=== PATIENT | female | born 1950 | race Caucasian/White ===

== ENCOUNTER → 2016-11-18 | Outpatient (CLI) | payer MEDICARE, OTHER ==
[2016-06-10 12:37] VITALS: BP 115/67
[~2016-11-18] MED LIST: CELE100C PO; CYAN10002; ENOX40DI SQ; FERR325C PO; GABA-585 PO; LISI1TAB3 PO; LORA10TA68 PO; OMEP20TA63 PO; OXYC-323 PO; RANI150T6 PO; TRAZ50TA15 PO
--- NOTE | 2016-11-18 14:38 | RAD ---
EXAM: Bilateral lower extremity venous Doppler. HISTORY: Bilateral lower extremity pain/swelling. COMPARISON: None. FINDINGS: Grayscale and Doppler analysis of the both lower extremity deep venous systems was performed with graded compression and augmentation. The common femoral, greater saphenous, superficial femoral, popliteal and calf veins were assessed. There is no evidence of deep venous thrombosis. IMPRESSION: 1. No evidence of deep venous thrombosis.
== END | disposition home or self-care (01) ==
LOC: US 12:56
PROVIDERS: ATTEND Internal Medicine Hematology & Oncology
DX: C22.1 Intrahepatic bile duct carcinoma (principal); M79.662 Pain in left lower leg; M79.661 Pain in right lower leg; Z86.718 Personal history of other venous thrombosis and embolism
CPT/HCPCS: 93970

== ENCOUNTER 2016-11-22 16:48 | Inpatient (IN) | payer MEDICARE, OTHER ==
[~2016-11-22] VITALS: Ht 160 cm; Wt 83.9 kg
[2016-11-22] MEDS ORDERED: IV NORMAL SALINE 1000ML BAG 1,000 ML IV SCH (18:16)
[2016-11-22 18:49] LABS: BASO % 0 % (0-3); EOS % 0 % (0-3); HEMATOCRIT 23.8 % (36.0-47.0); HEMOGLOBIN 7.7 g/dL (12.0-15.5); LYMPH # 0.2 x10^3/uL (1.0-4.8); LYMPH % 5 % (24-48); MEAN CORPUSCULAR HEMOGLOBIN 31 pg (25-35); MEAN CORPUSCULAR HGB CONC 32 g/dL (31-37); MEAN CORPUSCULAR VOLUME 97 fL (79-100); MONO % 1 % (0-9); NEUT % 95 % (31-73); PLATELET COUNT 71 x10^3/uL (140-400); RED BLOOD COUNT 2.45 x10^6/uL (3.50-5.40); RED CELL DISTRIBUTION WIDTH 22.7 % (11.5-14.5); WHITE BLOOD COUNT 4.5 x10^3/uL (4.0-11.0)
[2016-11-22] MEDS: FENTANYL PF 100 MCG/2 ML VIAL. IV PRN (18:57)
[2016-11-22] MEDS ORDERED: VANCOMYCIN 2 GM in IV NORMAL SALINE 500ML BAG 500 ML IV ONE (19:00)
[2016-11-22 19:01] LABS: CALCIUM 8.3 mg/dL (8.5-10.1); CREATININE 0.9 mg/dL (0.6-1.0); GFR 62.5; POTASSIUM 4.1 mmol/L (3.5-5.1)
[2016-11-22] MEDS: VANCOMYCIN PER PHARMACY MC PRN (19:09)
[2016-11-22 19:28] LABS: PLT ESTIMATE DECREASED (ADEQUATE)
[2016-11-22 19:29] LABS: HYPOCHROMIA SLIGHT; OVALOCYTES OCC; TEAR DROP CELLS OCC
[2016-11-22 19:46] LABS: BILIRUBIN,URINE SMALL (NEG); GLUCOSE,URINE NEGATIVE (NEG); NITRITE,URINE NEGATIVE (NEG); PH,URINE 5.5; PROTEIN,URINE NEGATIVE (NEG-TRACE); UROBILINOGEN,URINE 0.2 mg/dL (0.2 mg/dL)
[2016-11-22 19:59] LABS: BACTERIA,URINE 0 /HPF (0-FEW); RBC,URINE 0 /HPF (0-2); SQUAMOUS EPITHELIAL CELL,UR OCC /LPF
[2016-11-22] MEDS ORDERED: FENTANYL PF 100 MCG/2 ML VIAL. IV PRN (20:00)
[2016-11-22] MEDS ORDERED: ONDANSETRON PF 4 MG/2 ML VIAL. IV PRN (20:00)
--- NOTE | 2016-11-22 20:25 | ED.ADGEN ---
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 Patient states she was seen by her oncologist, Dr. Trevino, on . At that time she was noted to have redness and swelling of the extremity, with history of DVT in that extremity. An ultrasound was ordered, which did not reveal any evidence of DVT, and patient was placed on Keflex for treatment of cellulitis. Patient states he's been taking antibiotics as directed. Incision expressing chills, no fever, mild nausea, no vomiting, no weakness, numbness or tingling, denies any injuries. She states that the redness initially was located only in the ankle region, but is now extended up to just below the knee, with warmth, and swelling. She was seen by her primary care provider this afternoon, was sent to the emergency department for additional evaluation and treatment as a failure of outpatient management of cellulitis. Review of Systems Review of Systems Constitutional: Denies fever or chills. [] Eyes: Denies change in visual acuity. [] HENT: Denies nasal congestion or sore throat. [] Respiratory: Denies cough or shortness of breath. [] Cardiovascular: Denies chest pain or edema. [] GI: Denies abdominal pain, nausea, vomiting, bloody stools or diarrhea. [] : Denies dysuria. [] Musculoskeletal: Denies back pain, redness and swelling of the right lower extremity. Integument: Denies rash. [] Neurologic: Denies headache, focal weakness or sensory changes. [] Endocrine: Denies polyuria or polydipsia. [] Lymphatic: Denies swollen glands. [] Psychiatric: Denies depression or anxiety. [] Current Medications Current Medications Current Medications Medications (Trade) Dose Ordered Sig/Shahab Start Time Stop Time Status Last Admin Dose Admin Sodium Chloride (Iv Sodium Chloride 0.9% 1000ml Bag) 1,000 ml @ 100 mls/hr Q10H 11/22/16 18:16 11/23/16 04:15 11/22/16 18:40 100 MLS/HR Allergies Allergies Allergies Coded Allergies Type Severity Reaction Last Updated Verified No Known Drug Allergies 06/10/16 No Physical Exam Physical Exam Constitutional: Well developed, well nourished, no acute distress, non-toxic appearance. [] HENT: Normocephalic, atraumatic, bilateral external ears normal, oropharynx moist, no oral exudates, nose normal. [] Eyes: PERRLA, EOMI, conjunctiva normal, no discharge. [] Neck: Normal range of motion, no tenderness, supple, no stridor. [] Cardiovascular:Heart rate regular rhythm, no murmur S1, S2, rubs or gallops. [] Lungs & Thorax: Bilateral breath sounds clear to auscultation, no wheezing, rhonchi, rales. No chest or crepitus or tenderness. [] Abdomen: Bowel sounds normal, soft, obese, no rebound, rigidity, no guarding, no tenderness, no masses, no pulsatile masses. [] Skin: Warm, dry, no erythema, no rash. [] Back: No tenderness, no CVA tenderness. [] Extremities: Patient with swelling and erythema noted from the dorsum of the right foot extending up to just below the knee on the right, warm and tender to touch, no fluctuance, no discrete abscess formation, no evidence of injury. Left lower extremity noted to have very mild erythema located on the pretibial region, but no significant edema, and no evidence of injury or abscess formation. Neurologic: Alert and oriented X 3, normal motor function, normal sensory function, no focal deficits noted. [] Psychologic: Affect normal, judgement normal, mood normal. [] Current Patient Data Vital Signs Vital Signs Date Time Temp Pulse Resp B/P Pulse Ox O2 Delivery O2 Flow Rate FiO2 11/22/16 17:41 98.7 78 22 123/59 95 98.7 EKG EKG ECG: Rhythm strip: Heart rate 82 bpm, sinus rhythm, no ectopy. As interpreted by me. [] Radiology/Procedures Radiology/Procedures Right Ankle x-ray: Three-view: No fracture or subluxation, evidence of arthritis but no acute findings identified. As interpreted by me. Right tib-fib x-ray: Two-view: No fracture subluxation, evidence of soft tissue swelling, with degenerative joint disease, but no evidence of acute bony abnormalities or air tracking. As inserted by me. Impressions: [facility] [address] [place] [address] IMAGING REPORT Signed PATIENT: JAMAAL HENDRICKSON ACCOUNT: [id number] : 1950 LOCATION: US AGE: 66 SEX: F EXAM STATUS: REG CLI ORD. PHYSICIAN: LETICIA TREVINO MD REASON: USVEINB/PAIN SWELLING HX OF DVT PROCEDURE: VENOUS LOWER EXT BILATERAL EXAM: Bilateral lower extremity venous Doppler. HISTORY: Bilateral lower extremity pain/swelling. COMPARISON: None. FINDINGS: Grayscale and Doppler analysis of the both lower extremity deep venous systems was performed with graded compression and augmentation. The common femoral, greater saphenous, superficial femoral, popliteal and calf veins were assessed. There is no evidence of deep venous thrombosis. IMPRESSION: 1. No evidence of deep venous thrombosis. DICTATED and SIGNED BY: CLIVE MEJIAS MD DATE: 11/18/16 [id number] CC: FAROOQ SANCHEZ DO; LETICIA TREVINO MD ~ Course & Med Decision Making Course & Med Decision Making Pertinent Labs and Imaging studies reviewed. (See chart for details) Patient well-appearing aside from erythema bilateral lower extremities stated, with worsening right versus left. Examination is consistent with failure of outpatient medical therapy. Did discuss this with patient, she has no fever at this time, laboratory studies not reveal any evidence of systemic infection, but based on the progression of the cellulitis, she is agreeable for initial hospital for treatment with IV antibiotics and supportive measures. She is cancer pain at a 10 out of 10 at this time, it is significantly improved her receiving IV pain medication in the ED. Findings as above discussed with Dr. Escobar of internal medicine, patient accepted to his service as a full admission to the medical telemetry floor with plan for treatment as above. Bridge orders entered per discussion. Dragon Disclaimer Dragon Disclaimer This electronic medical record was generated, in whole or in part, using a voice recognition dictation system. Departure Impression: Primary Impression: Cellulitis Disposition: ADMITTED INPATIENT Condition: IMPROVED AMANDA MINOR DO Nov 22, 2016 20:25
[2016-11-22 20:30] VITALS: BP 118/58
[2016-11-22] MEDS ORDERED: LISI-377 PO (21:42)
[2016-11-22] MEDS ORDERED: SULF1TAB23 PO (21:47)
[2016-11-22] MEDS ORDERED: GABA-586 PO (21:47)
[2016-11-22] MEDS ORDERED: LORA10TA68 PO (21:47)
[2016-11-22] MEDS: ACETAMINOPHEN 325 MG TABLET. PO PRN (21:57)
[2016-11-22 23:00] VITALS: BP 114/48
--- NOTE | 2016-11-22 23:35 | ACF ---
Admission Forms Criteria CELLULITIS Clinical Indications for Admission to Inpatient Care (Place 'X' for any and all applicable criteria): Admission is indicated for ANY ONE of the following(1)(2)(3)(4)(5): [X]I. Limb-threatening infection [ ]II. High-risk comorbid condition as indicated by ANY ONE of the following: [ ]a) Uncontrolled diabetes (eg, HbA1c greater than 10% (0.1)) [ ]b) Cirrhosis [ ]c) Neutropenia [ ]d) Asplenia [ ]e) Immunosuppression [ ]f) Symptomatic heart failure [ ]III. Failure of outpatient therapy as indicated by ALL of the following: [ ]a) Progression or no improvement after adequate trial (minimum of 48 hours, with longer period for stable lower extremity infection) [ ]b) Adequate antibiotic regimen as indicated by use of ANY ONE of the following: [ ]i) First-generation cephalosporin (e.g., cephalexin) [ ]ii) Antistaphylococcal penicillin (e.g., dicloxacillin) [ ]iii) Penicillin-allergic patient regimen (clindamycin, extended-spectrum fluoroquinolone, or doxycycline) [ ]iv) Resistant organism (eg, methicillin-resistant Staphylococcus aureus) regimen (6) [ ]c) Outpatient intravenous therapy regimen is not appropriate due to ANY ONE of the following. (7)(8)(9)(10): [ ]i) It was tried and was not successful (eg, progression of infection). [ ]ii) It is not available or cannot be arranged in a clinically appropriate time frame (e.g., the next day). [ ]iii) Clinical presentation (eg, acuity of infection, rapidity of progression, confirmed or suspected bacteremia) is judged to require ALL of the following: [ ]1) Immediate initiation of intravenous therapy ( eg, cannot wait for next day) [ ]2) Intensity of patient monitoring and observation (eg, vital sign measurement, checks for infection progression) that cannot be provided at other than inpatient level of care [ ]IV. Mental status changes [ ]V. Bacteremia [ ]. Hemodynamic instability [ ]VII. Suspected necrotizing soft tissue infection (e.g., gas in tissue)(11)( 12) [ ]VIII. Orbital infection (13)(14) [ ]IX. Associated surgical procedure (e.g., abscess drainage, debridement) not amenable to outpatient, emergency department, or observation care [ ]X. Cutaneous gangrene [ ]XI. High fever (temperature greater than 39.5 degrees C (103.1 degrees F) (oral)) not responsive to outpatient, emergency department, or observation care therapy [ ]XIII. Inpatient admission required rather than observation care (Also use Cellulitis: Observation Care as appropriate) because of ANY ONE of the following : [ ]a) Periorbital or perineal infection that is severe or worsening [ ]b) Severe pain requiring acute inpatient management [ ]c) IV fluid to replace significant ongoing (e.g., for over 24 hours) losses (greater than 3L/m2 per day) [ ]d) Compartment syndrome monitoring (17) [ ]e) Strict or protective (eg, laminar flow) isolation [ ]f) Urgent debridement or skin grafting [ ]g) Bone or joint debridement [ ]h) Immediate inpatient surgery [ ]i) Other condition, treatment or monitoring requiring inpatient admission Extended stay beyond goal length of stay may be needed for (1)(18): [ ]a) Necrotizing soft tissue infection or fasciitis [ ]b) Gram-negative infection [ ]c) Methicillin-resistant Staphylococcal aureus (MRSA) infection [ ]d) Peripheral venous insufficiency with cellulitis [ ]e) Extensive edema [ ]f) Sepsis or continued Hemodynamic instability [ ]g) Continued high fever or mental status change [ ]h) Bacteremia [ ]i) Active serious comorbid conditions ( eg, heart failure, renal insufficiency) The original [employer] content created by [employer] has been revised. The portions of the content which have been revised are identified through the use of italic text or in bold, and [facility] [employer] [facility] has neither reviewed nor approved the modified material. All other unmodified content is copyright [employer] Please see references footnoted in the original [employer] edition 2016 Admission Criteria Met?: Yes MELCHOR FROST Nov 22, 2016 23:35
[2016-11-23] VITALS (8 sets, daily range): BP systolic 100–135; BP diastolic 45–69
[2016-11-23] MEDS: GUAIFENESIN DM 200MG/20MG 10 ML SYRUP. PO PRN ×3 (03:48→18:31)
[2016-11-23 04:49] LABS: CREATININE 0.8 mg/dL (0.6-1.0); GFR 71.5; POTASSIUM 3.5 mmol/L (3.5-5.1)
[2016-11-23 04:52] LABS: BASO % 0 % (0-3); EOS % 0 % (0-3); LYMPH # 0.2 x10^3/uL (1.0-4.8); LYMPH % 7 % (24-48); MEAN CORPUSCULAR HEMOGLOBIN 32 pg (25-35); MEAN CORPUSCULAR HGB CONC 32 g/dL (31-37); MEAN CORPUSCULAR VOLUME 98 fL (79-100); MONO % 0 % (0-9); NEUT % 93 % (31-73); PLATELET COUNT 60 x10^3/uL (140-400); RED BLOOD COUNT 2.08 x10^6/uL (3.50-5.40); RED CELL DISTRIBUTION WIDTH 22.5 % (11.5-14.5)
[2016-11-23 04:54] LABS: HEMATOCRIT 20.3 % (36.0-47.0); HEMOGLOBIN 6.6 g/dL (12.0-15.5)
--- NOTE | 2016-11-23 08:12 | RAD ---
Indication: Right lower leg swelling, redness and pain. Technique: 2 views of the right tibia and fibula are submitted for review. No comparison is available. Findings: There is soft tissue swelling diffusely. There is no fracture or osseous lesion. There is no gross bone destruction. There are degenerative changes in the knee, advanced. Impression: Soft tissue swelling.
--- NOTE | 2016-11-23 08:14 | RAD ---
Indication: Right lower leg swelling, redness and pain. Warm to touch. Cellulitis. Technique: 3 views of the right ankle are submitted for review. No comparison is available. Findings: There is soft tissue swelling. There is no fracture or dislocation. There are mild degenerative changes at the tibiotalar joint. There are mild degenerative changes between the tarsals. There is a small spur at the insertion of the Achilles tendon and there is a plantar calcaneal spur. There is no gross bone destruction. Impression: Soft tissue swelling. Degenerative changes.
[2016-11-23] MEDS: FENTANYL PF 100 MCG/2 ML VIAL. IV PRN (08:42)
[2016-11-23] MEDS: ACETAMINOPHEN 325 MG TABLET. PO PRN (09:43)
[2016-11-23] MEDS ORDERED: OXYCODONE/APAP 5/325 TABLET. PO PRN (11:30)
--- NOTE | 2016-11-23 11:36 | HP ---
ADMIT DATE: 11/23/2016 CHIEF COMPLAINT: Right lower extremity pain and swelling. HISTORY OF PRESENT ILLNESS: The patient is a pleasant middle-aged female who has a known previous history of breast cancer 18 years ago, she thinks that has cured. She also has cholangiocarcinoma that has currently been treated with chemotherapy and actually started in her liver and she has had part of her liver resected at . She now presents with right lower extremity swelling and pain and erythema. We thought she might have a clot, but the lower extremity Doppler is negative for DVT. She does have cellulitis. She also has pancytopenia, I have discussed the case with the ER physician. We are going to admit the patient, give her IV antibiotics and consult Heme/Onc. PAST MEDICAL HISTORY: The above-mentioned breast cancer many years ago, but that seems to be cured cholangiocarcinoma. She is currently getting chemotherapy, hypertension. ALLERGIES: None. FAMILY HISTORY: Coronary artery disease. SOCIAL HISTORY: She does not drink, smoke or take drugs. MEDICATIONS: Reviewed, please refer to the MRAD. REVIEW OF SYSTEMS: GENERAL: No history of weight change, weakness or fevers. SKIN: No bruising, hair changes or rashes. EYES: No blurred, double or loss of vision. NOSE AND THROAT: No history of nosebleeds, hoarseness or sore throat. HEART: No history of palpitations, chest pain or shortness of breath on exertion. LUNGS: Denies cough, hemoptysis, wheezing or shortness of breath. GASTROINTESTINAL: Denies changes in appetite, nausea, vomiting, diarrhea or constipation. GENITOURINARY: No history of frequency, urgency, hesitancy or nocturia. NEUROLOGIC: Denies history of numbness, tingling, tremor or weakness. PSYCHIATRIC: No history of panic, anxiety or depression. ENDOCRINE: No history of heat or cold intolerance, polyuria or polydipsia. EXTREMITIES: She complains of right leg pain. PHYSICAL EXAMINATION: VITAL SIGNS: Temperature afebrile, pulse 68, respirations 18, blood pressure 125/54. GENERAL: She is alert, cooperative. HEART: Normal S1, S2. LUNGS: Clear. ABDOMEN: Soft, positive bowel sounds. EXTREMITIES: The right lower extremity has some erythema and swelling. ENDOCRINE: No thyromegaly. LYMPHATICS: No cervical nodes. HEMATOPOIETIC: No bruising. LABORATORY DATA: White count 3, hemoglobin 6.6, platelets 60. Electrolytes normal. ASSESSMENT AND PLAN: Cellulitis in an elderly female who has cholangiocarcinoma and is getting chemotherapy and has pancytopenia. The patient has been admitted. We are consulting Hem/Onc, IV antibiotics, physical therapy and occupational therapy. Continue home medicines. DAMIEN HOPSON DO DR: LUAN/bonnie JOB#: [id number] / [id number]
[2016-11-23] MEDS: PANTOPRAZOLE 40 MG TABLET. PO SCH (12:43)
[2016-11-23] MEDS: FUROSEMIDE 20 MG/2 ML VIAL IVP SCH (12:43)
--- NOTE | 2016-11-23 12:48 | PDOC ---
Provider Note Provider Note Onc consult dictated Stage IV Cholangiocarcinoma with hilar mets on gemzar-based pall chemo since . last gemzar on 11/19, likely resulting in her cytopenias. F/u planned at [facility] this weekend, Dr. Connell on 12/02. RLE cellulitis improving significantly with IV abx. Ok to DC from onc stanpdoint after transfusions. ИВАН HENDRICKS DO Nov 23, 2016 12:47
[2016-11-23 13:20] LABS: ANISOCYTOSIS MOD; OVALOCYTES MOD; PLT ESTIMATE DECREASED (ADEQUATE)
[2016-11-23] MEDS: GABAPENTIN 300 MG CAPSULE. PO SCH ×2 (14:03→20:35)
[2016-11-23] MEDS: VANCOMYCIN PER PHARMACY MC PRN (15:10)
[2016-11-23] MEDS ORDERED: VANCOMYCIN 1.25 GM in IV NORMAL SALINE 250ML 250 ML IV SCH (18:00)
[2016-11-23] MEDS ORDERED: SMZ/TMP 400/80MG TABLET. PO SCH (21:00)
[2016-11-23] MEDS: OXYCODONE/APAP 5/325 TABLET. PO PRN (22:27)
[2016-11-24] VITALS (16 sets, daily range): BP systolic 97–137; BP diastolic 41–57
--- NOTE | 2016-11-24 00:58 | CONS ---
DATE OF CONSULTATION: 11/23/2016 REFERRING PROVIDER: Dr. Escobar. REASON FOR CONSULTATION: Cholangiocarcinoma. HISTORY OF PRESENT ILLNESS: The patient is a 66-year-old female treated by my colleague, Dr. Connell, for her history of stage IV cholangiocarcinoma with metastases to hilar lymph nodes. This was diagnosed in 06/2015 and she has been on gemcitabine-based chemotherapy since that time. She continues on weekly gemcitabine now with Xeloda 1 week on, 1 week off. Her last treatment of gemcitabine was 11/19. She has been noted to have right lower extremity swelling and cellulitis. Right lower extremity ultrasound was negative for DVT. She was placed on Keflex as an outpatient, but the erythema and tenderness worsened. She was admitted overnight and received vancomycin and has now already seen an improvement in her cellulitis. She was noted to have cytopenias with a hemoglobin of 6.6, platelets 60. A blood transfusion is being arranged. She travels to [facility] for ongoing evaluation as well and is planning to see them this weekend, 11/28, for scans with a visit on 11/29. 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 PAST SURGICAL HISTORY: Gastric bypass, TAHBSO, open cholecystectomy, left lumpectomy, hernia repair, liver surgery in 06/2015. FAMILY HISTORY: Negative for malignancies. SOCIAL HISTORY: No tobacco, alcohol, or drug use. . ALLERGIES: No known drug allergies. CURRENT MEDICATIONS: Vancomycin, Zyrtec, lisinopril, vitamin B12, Neurontin, Lasix, Protonix, Percocet, guaifenesin, Tylenol, fentanyl, Zofran. REVIEW OF SYSTEMS: Ten-point review of systems completed and unremarkable with the exception of the right lower extremity swelling and cellulitis. PHYSICAL EXAMINATION: VITAL SIGNS: Temperature 99.4, pulse 72, respiratory rate 14, blood pressure 125/54, 96% O2 on room air. GENERAL: She is alert and oriented. She is not in any distress at this time, nontoxic appearing. HEENT: Extraocular muscle strength is intact. Mucous membranes are moist. CARDIOVASCULAR: Heart is regular in rhythm and rate. LUNGS: Clear to auscultation bilaterally. ABDOMEN: Soft, nontender. EXTREMITIES: 1+ right lower extremity swelling with erythema and warmth in the right lower extremity. IMAGING AND LABORATORY DATA: Ultrasound reviewed. CBC reviewed as above. Oncology notes and labs also reviewed. ASSESSMENT AND PLAN: The patient is a 66-year-old female with the following medical problems: 1. 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 Currently on gemcitabine/Xeloda. She received gemcitabine on 11/19. This is likely resulting in some of her cytopenias. She seems to be tolerating this medication well and her disease clinically appears to be very stable. She has followup again at [facility] this weekend. Hopefully, she can be discharged to make it to that appointment. She has followup with Dr. Connell planned on 12/02 when she will be due for her next dose of gemcitabine. 2. [id number] normocytic anemia and thrombocytopenia: Likely chemotherapy related. She is going to be transfused today. 3. Right lower extremity cellulitis. Ultrasound was negative for DVT. She has significantly improved with IV antibiotics. Thank you for alerting us of her admission. From an Oncology standpoint, she can be discharged at any time after her transfusion and is very eager to make it to her upcoming Oncology appointment out of town. ИВАН HENDRICKS DO DR: VA/bonnie JOB#: [id number] / [id number] MTDD
[2016-11-24] MEDS: GUAIFENESIN DM 200MG/20MG 10 ML SYRUP. PO PRN ×2 (06:01→21:10)
[2016-11-24 07:07] LABS: BASO % 0 % (0-3); EOS % 1 % (0-3); HEMATOCRIT 21.2 % (36.0-47.0); LYMPH # 0.2 x10^3/uL (1.0-4.8); LYMPH % 15 % (24-48); MEAN CORPUSCULAR HEMOGLOBIN 32 pg (25-35); MEAN CORPUSCULAR HGB CONC 32 g/dL (31-37); MEAN CORPUSCULAR VOLUME 98 fL (79-100); MONO % 1 % (0-9); NEUT % 83 % (31-73); PLATELET COUNT 55 x10^3/uL (140-400); RED BLOOD COUNT 2.17 x10^6/uL (3.50-5.40)
[2016-11-24 07:18] LABS: CALCIUM 7.8 mg/dL (8.5-10.1); CREATININE 0.9 mg/dL (0.6-1.0); GFR 62.5; POTASSIUM 3.5 mmol/L (3.5-5.1)
[2016-11-24 07:26] LABS: HEMOGLOBIN 6.9 g/dL (12.0-15.5); WHITE BLOOD COUNT 1.5 x10^3/uL (4.0-11.0)
[2016-11-24] MEDS: GABAPENTIN 300 MG CAPSULE. PO SCH ×3 (08:41→21:10)
[2016-11-24] MEDS: FUROSEMIDE 20 MG/2 ML VIAL IVP SCH (08:43)
[2016-11-24] MEDS: PANTOPRAZOLE 40 MG TABLET. PO SCH (08:43)
[2016-11-24] MEDS: LISINOPRIL 10 MG TABLET PO SCH (08:44)
[2016-11-24] MEDS ORDERED: CETIRIZINE HCL 10 MG TABLET PO PRN (09:00)
[2016-11-24] MEDS ORDERED: CYANOCOBALAMIN (VITAMIN B-12) 1,000 MCG/ML VIAL IM SCH (09:00)
--- NOTE | 2016-11-24 10:00 | PDOC ---
Subjective: Subjective: Onc f/u- Anemia, cholangiocarcinoma Pt with ongoing cellulitis RLE, a littler worse this AM. S/p 1 unit PRBC but hgb low this AM-- no SOB, CP, abd pain. Objective: Vital Signs: Vital Signs Date Time Temp Pulse Resp B/P Pulse Ox O2 Delivery O2 Flow Rate FiO2 11/24/16 08:44 75 119/57 11/24/16 07:00 99.7 14 92 Room Air 99.7 Physical Exam: Extremities: No edema General: Alert, Oriented X3, Cooperative, No acute distress Lungs: Other (no resp distress) Musculoskeletal: Other (2+ RLE edema) Psych/Mental Status: Mental status NL, Mood NL Skin: Other (RLE erythema worse today than yesterday PM) Labs/Imaging: Hgb 6.9 this AM Assessment/Plan A/P: 1. Anemia, thrombocytopenia- Chemo related. Ok to give 2nd unit today. + antibodies so blood bank may need more time crossmatching. 2. Cholangiocarcinoma- Plans to see [facility] this weekend, Dr. Connell 12/01. On gemzar/ xeloda. 3. RLE cellulitis, failed outpt abx. On vanco day 2. Seems a little worse today. Ok to DC when hgb >7 and cellulitis improved. Will have labs checked again this weekend. ИВАН HENDRICKS DO Nov 24, 2016 10:00
[2016-11-24 12:24] LABS: % EOS 4 % (0-5)
[2016-11-24 12:25] LABS: ANISOCYTOSIS MOD; PLT ESTIMATE DECREASED (ADEQUATE)
--- NOTE | 2016-11-24 13:23 | PDOC ---
PROGRESS NOTES Chief Complaint Chief Complaint RLE Cellulitis History of Present Illness History of Present Illness No acute events overnight. Patient does have an appointment with MD Urias this weekend and is anxious about discharging in time for appointment. Her hemoglobin had minimal rise after 2 units of PRBCs yesterday, hematology has ordered another unit for today. She does report fatigue. Her cellulitis is not showing as much improvement as expected, ID will be consulted. Patient and her agree with the plan. Vitals Vitals Vital Signs Date Time Temp Pulse Resp B/P Pulse Ox O2 Delivery O2 Flow Rate FiO2 11/24/16 12:50 100.2 75 16 137/52 98 Room Air 100.2 Physical Exam General: Alert, Oriented X3, Cooperative, No acute distress Heart: Regular rate, No murmurs Lungs: Clear, Other (no wheezing) Abdomen: Soft, No tenderness Extremities: No cyanosis, No edema (Mild bl LE edema ), Normal pulses Skin: Other (RLE erythema slightly worse to upper calf, some warmth; New, Mild erythema to medial LLE at ankle) Labs LABS Laboratory Tests Test 11/24/16 06:30 White Blood Count 1.5x10^3/uL (4.0-11.0) Red Blood Count 2.17x10^6/uL (3.50-5.40) Hemoglobin 6.9g/dL (12.0-15.5) Hematocrit 21.2% (36.0-47.0) Mean Corpuscular Volume 98fL (79-100) Mean Corpuscular Hemoglobin 32pg (25-35) Mean Corpuscular Hemoglobin Concent 32g/dL (31-37) Red Cell Distribution Width 21.0% (11.5-14.5) Platelet Count 55x10^3/uL (140-400) Neutrophils (%) (Auto) 83% (31-73) Lymphocytes (%) (Auto) 15% (24-48) Monocytes (%) (Auto) 1% (0-9) Eosinophils (%) (Auto) 1% (0-3) Basophils (%) (Auto) 0% (0-3) Neutrophils # (Auto) 1.2x10^3uL (1.8-7.7) Lymphocytes # (Auto) 0.2x10^3/uL (1.0-4.8) Monocytes # (Auto) 0.0x10^3/uL (0.0-1.1) Eosinophils # (Auto) 0.0x10^3/uL (0.0-0.7) Basophils # (Auto) 0.0x10^3/uL (0.0-0.2) Segmented Neutrophils % 76% (35-66) Band Neutrophils % 4% (0-9) Lymphocytes % 16% (24-48) Eosinophils % 4% (0-5) Platelet Estimate Decreased (ADEQUATE) Anisocytosis Mod Sodium Level 144mmol/L (136-145) Potassium Level 3.5mmol/L (3.5-5.1) Chloride Level 111mmol/L (98-107) Carbon Dioxide Level 24mmol/L (21-32) Anion Gap 9 (6-14) Blood Urea Nitrogen 21mg/dL (7-20) Creatinine 0.9mg/dL (0.6-1.0) Estimated GFR (Cockcroft-Gault) 62.5 Glucose Level 99mg/dL (70-99) Calcium Level 7.8mg/dL (8.5-10.1) Review of Systems Review of Systems Denies chest pain and shortness of breath. Does report fatigue. Denies fever or chills. Assessment and Plan Assessmemt and Plan Problems Medical Problems: (1) Cellulitis Status: Acute ASSESSMENT: RLE Cellulitis, failed outpatient therapy Cholangiocarcinoma, currently receiving chemotherapy Pancytopenia History of breast cancer PLAN: ID was consulted for cellulitis, their recommendations are appreciated Hematology is following, their recommendations are appreciated Continue vancomycin awaiting ID evaluation Will transfuse another unit today per hematology recommendations Continue lasix Continue pain control with percocet Continue to trend daily labs PT/OT eval and treat Problems: Comment Review of Relevant I have reviewed the following items ketty (where applicable) has been applied. Labs Laboratory Tests Test 11/22/16 18:30 11/22/16 19:34 11/23/16 03:40 11/24/16 06:30 White Blood Count 4.5x10^3/uL (4.0-11.0) 3.0x10^3/uL (4.0-11.0) 1.5x10^3/uL (4.0-11.0) Red Blood Count 2.45x10^6/uL (3.50-5.40) 2.08x10^6/uL (3.50-5.40) 2.17x10^6/uL (3.50-5.40) Hemoglobin 7.7g/dL (12.0-15.5) 6.6g/dL (12.0-15.5) 6.9g/dL (12.0-15.5) Hematocrit 23.8% (36.0-47.0) 20.3% (36.0-47.0) 21.2% (36.0-47.0) Mean Corpuscular Volume 97fL (79-100) 98fL (79-100) 98fL (79-100) Mean Corpuscular Hemoglobin 31pg (25-35) 32pg (25-35) 32pg (25-35) Mean Corpuscular Hemoglobin Concent 32g/dL (31-37) 32g/dL (31-37) 32g/dL (31-37) Red Cell Distribution Width 22.7% (11.5-14.5) 22.5% (11.5-14.5) 21.0% (11.5-14.5) Platelet Count 71x10^3/uL (140-400) 60x10^3/uL (140-400) 55x10^3/uL (140-400) Neutrophils (%) (Auto) 95% (31-73) 93% (31-73) 83% (31-73) Lymphocytes (%) (Auto) 5% (24-48) 7% (24-48) 15% (24-48) Monocytes (%) (Auto) 1% (0-9) 0% (0-9) 1% (0-9) Eosinophils (%) (Auto) 0% (0-3) 0% (0-3) 1% (0-3) Basophils (%) (Auto) 0% (0-3) 0% (0-3) 0% (0-3) Neutrophils # (Auto) 4.2x10^3uL (1.8-7.7) 2.8x10^3uL (1.8-7.7) 1.2x10^3uL (1.8-7.7) Lymphocytes # (Auto) 0.2x10^3/uL (1.0-4.8) 0.2x10^3/uL (1.0-4.8) 0.2x10^3/uL (1.0-4.8) Monocytes # (Auto) 0.0x10^3/uL (0.0-1.1) 0.0x10^3/uL (0.0-1.1) 0.0x10^3/uL (0.0-1.1) Eosinophils # (Auto) 0.0x10^3/uL (0.0-0.7) 0.0x10^3/uL (0.0-0.7) 0.0x10^3/uL (0.0-0.7) Basophils # (Auto) 0.0x10^3/uL (0.0-0.2) 0.0x10^3/uL (0.0-0.2) 0.0x10^3/uL (0.0-0.2) Platelet Estimate Decreased (ADEQUATE) Decreased (ADEQUATE) Decreased (ADEQUATE) Hypochromasia Slight Tear Drop Cells Occ Ovalocytes Occ Mod Sodium Level 139mmol/L (136-145) 142mmol/L (136-145) 144mmol/L (136-145) Potassium Level 4.1mmol/L (3.5-5.1) 3.5mmol/L (3.5-5.1) 3.5mmol/L (3.5-5.1) Chloride Level 105mmol/L (98-107) 108mmol/L (98-107) 111mmol/L (98-107) Carbon Dioxide Level 25mmol/L (21-32) 23mmol/L (21-32) 24mmol/L (21-32) Anion Gap 9 (6-14) 11 (6-14) 9 (6-14) Blood Urea Nitrogen 18mg/dL (7-20) 18mg/dL (7-20) 21mg/dL (7-20) Creatinine 0.9mg/dL (0.6-1.0) 0.8mg/dL (0.6-1.0) 0.9mg/dL (0.6-1.0) Estimated GFR (Cockcroft-Gault) 62.5 71.5 62.5 Glucose Level 118mg/dL (70-99) 99mg/dL (70-99) 99mg/dL (70-99) Calcium Level 8.3mg/dL (8.5-10.1) 8.0mg/dL (8.5-10.1) 7.8mg/dL (8.5-10.1) Urine Color Shari Urine Clarity Clear Urine pH 5.5 Urine Specific [place]well 1.020 Urine Protein Negativemg/dL (NEG-TRACE) Urine Glucose (UA) Negativemg/dL (NEG) Urine Ketones (Stick) Negativemg/dL (NEG) Urine Blood Negative (NEG) Urine Nitrite Negative (NEG) Urine Bilirubin Small (NEG) Urine Urobilinogen Dipstick 0.2mg/dL (0.2 mg/dL) Urine Leukocyte Esterase Negative (NEG) Urine RBC 0/HPF (0-2) Urine WBC 1-4/HPF (0-4) Urine Squamous Epithelial Cells Occ/LPF Urine Bacteria 0/HPF (0-FEW) Urine Hyaline Casts Occasional/HPF Urine Mucus Mod/LPF Segmented Neutrophils % 94% (35-66) 76% (35-66) Lymphocytes % 6% (24-48) 16% (24-48) Basophilic Stippling Present Anisocytosis Mod Mod Macrocytosis Slight Band Neutrophils % 4% (0-9) Eosinophils % 4% (0-5) Laboratory Tests Test 11/24/16 06:30 White Blood Count 1.5x10^3/uL (4.0-11.0) Red Blood Count 2.17x10^6/uL (3.50-5.40) Hemoglobin 6.9g/dL (12.0-15.5) Hematocrit 21.2% (36.0-47.0) Mean Corpuscular Volume 98fL (79-100) Mean Corpuscular Hemoglobin 32pg (25-35) Mean Corpuscular Hemoglobin Concent 32g/dL (31-37) Red Cell Distribution Width 21.0% (11.5-14.5) Platelet Count 55x10^3/uL (140-400) Neutrophils (%) (Auto) 83% (31-73) Lymphocytes (%) (Auto) 15% (24-48) Monocytes (%) (Auto) 1% (0-9) Eosinophils (%) (Auto) 1% (0-3) Basophils (%) (Auto) 0% (0-3) Neutrophils # (Auto) 1.2x10^3uL (1.8-7.7) Lymphocytes # (Auto) 0.2x10^3/uL (1.0-4.8) Monocytes # (Auto) 0.0x10^3/uL (0.0-1.1) Eosinophils # (Auto) 0.0x10^3/uL (0.0-0.7) Basophils # (Auto) 0.0x10^3/uL (0.0-0.2) Segmented Neutrophils % 76% (35-66) Band Neutrophils % 4% (0-9) Lymphocytes % 16% (24-48) Eosinophils % 4% (0-5) Platelet Estimate Decreased (ADEQUATE) Anisocytosis Mod Sodium Level 144mmol/L (136-145) Potassium Level 3.5mmol/L (3.5-5.1) Chloride Level 111mmol/L (98-107) Carbon Dioxide Level 24mmol/L (21-32) Anion Gap 9 (6-14) Blood Urea Nitrogen 21mg/dL (7-20) Creatinine 0.9mg/dL (0.6-1.0) Estimated GFR (Cockcroft-Gault) 62.5 Glucose Level 99mg/dL (70-99) Calcium Level 7.8mg/dL (8.5-10.1) Microbiology 11/22/16 Blood Culture - Preliminary, Resulted NO GROWTH AFTER 1 DAY Medications Current Medications Vancomycin HCl (Vanco Per Pharmacy) 1 each PRN DAILY PRN MC SEE COMMENTS Last administered on 11/23/16 15:10; Start 11/22/16 at 18:30 Fentanyl Citrate 50 mcg 50 mcg PRN Q15MIN PRN IV PAIN GREATER THAN 3/10 Last administered on 11/23/16 08:42; Start 11/22/16 at 18:30; Stop 11/23/16 at 18:29 ; Status DC Sodium Chloride 1,000 ml @ 100 mls/hr Q10H IV Last administered on 11/22/16 18:40; Start 11/22/16 at 18:16; Stop 11/23/16 at 04:15; Status DC Vancomycin HCl 2 gm/Sodium Chloride 500 ml @ 250 mls/hr 1X ONCE IV Last administered on 11/22/16 18:40; Start 11/22/16 at 19:00; Stop 11/22/16 at 20:59 ; Status DC Vancomycin HCl/ Sodium Chloride (Iv Sodium Chloride 0.9% 250ml) 250 ml @ 167 mls/hr Q24H IV Last administered on 11/23/16 18:18; Start 11/23/16 at 18:00 Vancomycin HCl 1 each 1X ONCE MC ; Start 11/24/16 at 17:30; Stop 11/24/16 at 17 :31 Ondansetron HCl (Zofran) 4 mg PRN Q8HRS PRN IV NAUSEA/VOMITING; Start 11/22/16 at 20:00; Stop 11/23/16 at 19:59; Status DC Fentanyl Citrate (Fentanyl 2ml Vial) 50 mcg PRN Q2HR PRN IV PAIN; Start at 20:00; Stop 11/23/16 at 19:59; Status DC Acetaminophen (Tylenol) 650 mg PRN Q4HRS PRN PO FEVER Last administered on 11/23 09:43; Start 11/22/16 at 20:00; Stop 11/23/16 at 19:59; Status DC Guaifenesin (Robitussin Dm) 10 ml PRN Q4HRS PRN PO COUGH Last administered on 06:01; Start 11/23/16 at 02:30 Cyanocobalamin (Vitamin B-12) 1,000 mcg QMONTH IM ; Start 11/24/16 at 09:00 Gabapentin (Neurontin) 300 mg TID PO Last administered on 11/24/16 08:41; Start 11/23/16 at 14:00 Lisinopril (Prinivil) 10 mg DAILY PO Last administered on 11/24/16 08:44; Start 11/24/16 at 09:00 Oxycodone/ Acetaminophen (Percocet 5/325) 1 tab QIDPRN PRN PO MOD TO SEV; Start 11/23/16 at 11:30 Trimethoprim/ Sulfamethoxazole (Bactrim Ss) 1 tab BID PO ; Start 11/23/16 at 21: 00; Status UNV Cetirizine HCl (Zyrtec) 10 mg PRN DAILY PRN PO ALLERGIES; Start 11/24/16 at 09: 00 Pantoprazole Sodium (Protonix) 40 mg DAILYAC PO Last administered on 11/24/16 08:43; Start 11/23/16 at 12:00 Oxycodone/ Acetaminophen (Percocet 5/325) 2 tab QIDPRN PRN PO MOD TO SEV Last administered on 11/23/16 22:27; Start 11/23/16 at 11:30 Furosemide (Lasix) 20 mg DAILY IVP Last administered on 11/24/16 08:43; Start 11/23/16 at 12:00 Active Scripts Active Reported Claritin (Loratadine) 10 Mg Tablet 1 Tab PO DAILY PRN Bactrim 400-80 Mg Tablet (Sulfamethoxazole/Trimethoprim) 1 Each Tablet 1 Tab PO BID Gabapentin 300 Mg Capsule 300 Mg PO TID Zestril (Lisinopril) 10 Mg Tablet 10 Mg PO DAILY Cyanocobalamin Injection (Cyanocobalamin (Vitamin B-12)) 1,000 Mcg/1 Ml Vial 1, 000 Mcg QMONTH Percocet 5-325 Mg Tablet (Oxycodone/Acetaminophen) 1 Each Tablet 1-2 Tab PO Q4- 6HRS Prilosec Otc (Omeprazole Magnesium) 20 Mg Tablet.dr 20 Mg PO DAILY Vitals/I & O Vital Sign - Last 24 Hours 11/23/16 11/23/16 11/23/16 11/23/16 15:00 19:26 20:00 22:05 Temp 98.7 99.2 99.3 98.7 99.2 99.3 Pulse 71 77 79 Resp 18 18 B/P 100/52 117/49 135/69 Pulse Ox 98 100 96 O2 Delivery Room Air Room Air Room Air Room Air 11/23/16 11/23/16 11/23/16 11/24/16 22:27 22:49 23:49 00:49 Temp 100.0 98.8 98.4 100.0 98.8 98.4 Pulse 78 83 72 Resp 18 18 18 B/P 117/55 108/45 101/48 Pulse Ox 100 O2 Delivery Room Air 11/24/16 11/24/16 11/24/16 11/24/16 01:49 03:36 07:00 07:50 Temp 98.1 98.1 99.7 98.1 98.1 99.7 Pulse 71 71 75 Resp 18 18 14 B/P 105/53 105/53 119/57 Pulse Ox 94 92 O2 Delivery Room Air Room Air Room Air 11/24/16 11/24/16 11/24/16 08:44 11:00 12:50 Temp 98.9 100.2 98.9 100.2 Pulse 75 74 75 Resp 14 16 B/P 119/57 103/49 137/52 Pulse Ox 97 98 O2 Delivery Room Air Room Air Intake and Output 11/23/16 11/23/16 11/24/16 15:00 23:00 07:00 Intake Total 120 ml 390 ml 230 ml Balance 120 ml 390 ml 230 ml DAMIEN HOPSON III DO Nov 24, 2016 13:22
[2016-11-24] MEDS: ACETAMINOPHEN 325 MG TABLET. PO PRN (13:42)
[2016-11-24] MEDS: VANCOMYCIN PER PHARMACY MC PRN ×2 (14:17→18:13)
[2016-11-24] MEDS ORDERED: PIP/TAZO PER PHARMACY MC PRN (17:30)
[2016-11-24 17:50] LABS: HEMATOCRIT 23.4 % (36.0-47.0); HEMOGLOBIN 7.7 g/dL (12.0-15.5)
[2016-11-24] MEDS: PIPERACILLIN/TAZOBACTAM 3.375 GM in IV NORMAL SALINE 50ML 50 ML IV SCH ×2 (18:03→21:11)
[2016-11-24] MEDS ORDERED: VANCOMYCIN 1.5 GM in IV NORMAL SALINE 500ML BAG 500 ML IV SCH (18:30)
[2016-11-24] MEDS: OXYCODONE/APAP 5/325 TABLET. PO PRN (21:11)
[2016-11-25] VITALS (13 sets, daily range): BP systolic 105–151; BP diastolic 40–64
[2016-11-25] MEDS: ACETAMINOPHEN 325 MG TABLET. PO PRN (02:11)
[2016-11-25 05:23] LABS: BASO % 1 % (0-3); EOS % 1 % (0-3); HEMATOCRIT 21.1 % (36.0-47.0); LYMPH # 0.2 x10^3/uL (1.0-4.8); LYMPH % 53 % (24-48); MEAN CORPUSCULAR HEMOGLOBIN 32 pg (25-35); MEAN CORPUSCULAR HGB CONC 33 g/dL (31-37); MEAN CORPUSCULAR VOLUME 96 fL (79-100); MONO % 7 % (0-9); NEUT % 39 % (31-73); PLATELET COUNT 48 x10^3/uL (140-400); RED BLOOD COUNT 2.19 x10^6/uL (3.50-5.40); RED CELL DISTRIBUTION WIDTH 20.4 % (11.5-14.5)
[2016-11-25 05:32] LABS: WHITE BLOOD COUNT 0.5 x10^3/uL (4.0-11.0)
[2016-11-25 05:33] LABS: CALCIUM 7.8 mg/dL (8.5-10.1); CREATININE 0.9 mg/dL (0.6-1.0); GFR 62.5; HEMOGLOBIN 6.9 g/dL (12.0-15.5); POTASSIUM 3.4 mmol/L (3.5-5.1)
[2016-11-25] MEDS: PIPERACILLIN/TAZOBACTAM 3.375 GM in IV NORMAL SALINE 50ML 50 ML IV SCH ×3 (06:00→17:36)
[2016-11-25] MEDS: FUROSEMIDE 20 MG/2 ML VIAL IVP SCH (08:24)
[2016-11-25] MEDS: GABAPENTIN 300 MG CAPSULE. PO SCH ×3 (08:24→21:11)
[2016-11-25] MEDS: PANTOPRAZOLE 40 MG TABLET. PO SCH (08:24)
[2016-11-25] MEDS: LISINOPRIL 10 MG TABLET PO SCH (08:24)
--- NOTE | 2016-11-25 08:36 | PDOC ---
Infectious Disease Note ROS ROS Vital Sign Vital Signs Vital Signs Date Time Temp Pulse Resp B/P Pulse Ox O2 Delivery O2 Flow Rate FiO2 11/25/16 08:24 66 122/64 11/25/16 07:00 100.7 16 94 Room Air 100.7 Labs Lab Laboratory Tests Test 11/24/16 16:30 11/24/16 17:15 11/25/16 04:47 Hemoglobin 7.7g/dL (12.0-15.5) 6.9g/dL (12.0-15.5) Hematocrit 23.4% (36.0-47.0) 21.1% (36.0-47.0) Vancomycin Level Trough 9.3mcg/mL (10.0-20.0) Vancomycin Last Dose Date 11/23/2016 Vancomycin Last Dose Time 1800 White Blood Count 0.5x10^3/uL (4.0-11.0) Red Blood Count 2.19x10^6/uL (3.50-5.40) Mean Corpuscular Volume 96fL (79-100) Mean Corpuscular Hemoglobin 32pg (25-35) Mean Corpuscular Hemoglobin Concent 33g/dL (31-37) Red Cell Distribution Width 20.4% (11.5-14.5) Platelet Count 48x10^3/uL (140-400) Neutrophils (%) (Auto) 39% (31-73) Lymphocytes (%) (Auto) 53% (24-48) Monocytes (%) (Auto) 7% (0-9) Eosinophils (%) (Auto) 1% (0-3) Basophils (%) (Auto) 1% (0-3) Neutrophils # (Auto) 0.2x10^3uL (1.8-7.7) Lymphocytes # (Auto) 0.2x10^3/uL (1.0-4.8) Monocytes # (Auto) 0.0x10^3/uL (0.0-1.1) Eosinophils # (Auto) 0.0x10^3/uL (0.0-0.7) Basophils # (Auto) 0.0x10^3/uL (0.0-0.2) Sodium Level 142mmol/L (136-145) Potassium Level 3.4mmol/L (3.5-5.1) Chloride Level 108mmol/L (98-107) Carbon Dioxide Level 23mmol/L (21-32) Anion Gap 11 (6-14) Blood Urea Nitrogen 19mg/dL (7-20) Creatinine 0.9mg/dL (0.6-1.0) Estimated GFR (Cockcroft-Gault) 62.5 Glucose Level 90mg/dL (70-99) Calcium Level 7.8mg/dL (8.5-10.1) Objective Assessment Bilateral LE cellulitis R > L Fever - ? ID vs med +/- Transfusion Immunosupression - Granix 11/25 Stage 4 Cholangiocarcinoma s/p chemo Plan Plan of Care Flu screen Add Doxy for atypical coverage Tubigrips Discontinue vancomycin R/o drug fever- add Zyvox Cont zosyn F/u labs and cults D/w Thank you # [id number] RAHEEM TY MD Nov 25, 2016 08:36
--- NOTE | 2016-11-25 10:14 | PDOC ---
PROGRESS NOTES Chief Complaint Chief Complaint Cellulitis History of Present Illness History of Present Illness Patient had slight fever to 100.7 overnight. She has been placed under neutropenic precautions. Her hemoglobin is not improving following transfusions , remains at 6.9. The cellulitis on her right leg remains stable at yesterday's demarcation. The erythema on her left leg has advanced slightly from previous demarcation. Patient reports that she is feeling well but is fatigued. Potassium slightly low this morning, will replace and recheck tomorrow. Vitals Vitals Vital Signs Date Time Temp Pulse Resp B/P Pulse Ox O2 Delivery O2 Flow Rate FiO2 11/25/16 08:24 66 122/64 11/25/16 07:50 Room Air 11/25/16 07:00 100.7 16 94 100.7 Physical Exam General: Alert, Oriented X3, Cooperative, No acute distress Heart: Regular rate, No murmurs Lungs: Clear Abdomen: Soft, No tenderness Extremities: No cyanosis, No edema (Mild bl LE edema ), Normal pulses Skin: Other (RLE erythema remains at previous demarcation, some warmth; LLE erythema has advanced slightly beyond previous markings ) Labs LABS Laboratory Tests Test 11/24/16 16:30 11/24/16 17:15 11/25/16 04:47 Hemoglobin 7.7g/dL (12.0-15.5) 6.9g/dL (12.0-15.5) Hematocrit 23.4% (36.0-47.0) 21.1% (36.0-47.0) Vancomycin Level Trough 9.3mcg/mL (10.0-20.0) Vancomycin Last Dose Date 11/23/2016 Vancomycin Last Dose Time 1800 White Blood Count 0.5x10^3/uL (4.0-11.0) Red Blood Count 2.19x10^6/uL (3.50-5.40) Mean Corpuscular Volume 96fL (79-100) Mean Corpuscular Hemoglobin 32pg (25-35) Mean Corpuscular Hemoglobin Concent 33g/dL (31-37) Red Cell Distribution Width 20.4% (11.5-14.5) Platelet Count 48x10^3/uL (140-400) Neutrophils (%) (Auto) 39% (31-73) Lymphocytes (%) (Auto) 53% (24-48) Monocytes (%) (Auto) 7% (0-9) Eosinophils (%) (Auto) 1% (0-3) Basophils (%) (Auto) 1% (0-3) Neutrophils # (Auto) 0.2x10^3uL (1.8-7.7) Lymphocytes # (Auto) 0.2x10^3/uL (1.0-4.8) Monocytes # (Auto) 0.0x10^3/uL (0.0-1.1) Eosinophils # (Auto) 0.0x10^3/uL (0.0-0.7) Basophils # (Auto) 0.0x10^3/uL (0.0-0.2) Sodium Level 142mmol/L (136-145) Potassium Level 3.4mmol/L (3.5-5.1) Chloride Level 108mmol/L (98-107) Carbon Dioxide Level 23mmol/L (21-32) Anion Gap 11 (6-14) Blood Urea Nitrogen 19mg/dL (7-20) Creatinine 0.9mg/dL (0.6-1.0) Estimated GFR (Cockcroft-Gault) 62.5 Glucose Level 90mg/dL (70-99) Calcium Level 7.8mg/dL (8.5-10.1) Review of Systems Review of Systems Denies chest pain and shortness of breath. Reports fatigue. Assessment and Plan Assessmemt and Plan Problems Medical Problems: (1) Cellulitis Status: Acute ASSESSMENT: Cellulitis Cholangiocarcinoma, currently receiving chemotherapy Pancytopenia History of breast cancer Hypokalemia PLAN: Replaced potassium Continue to monitor progression/recession of erythema from markings Continue antibiotics per ID recommendations ID is following their recommendations are appreciated Hematology is following, their recommendations are appreciated Continue lasix Continue pain control with percocet Continue to trend daily labs PT/OT eval and treat Problems: Comment Review of Relevant I have reviewed the following items ketty (where applicable) has been applied. Labs Laboratory Tests Test 11/24/16 06:30 11/24/16 16:30 11/24/16 17:15 11/25/16 04:47 White Blood Count 1.5x10^3/uL (4.0-11.0) 0.5x10^3/uL (4.0-11.0) Red Blood Count 2.17x10^6/uL (3.50-5.40) 2.19x10^6/uL (3.50-5.40) Hemoglobin 6.9g/dL (12.0-15.5) 7.7g/dL (12.0-15.5) 6.9g/dL (12.0-15.5) Hematocrit 21.2% (36.0-47.0) 23.4% (36.0-47.0) 21.1% (36.0-47.0) Mean Corpuscular Volume 98fL (79-100) 96fL (79-100) Mean Corpuscular Hemoglobin 32pg (25-35) 32pg (25-35) Mean Corpuscular Hemoglobin Concent 32g/dL (31-37) 33g/dL (31-37) Red Cell Distribution Width 21.0% (11.5-14.5) 20.4% (11.5-14.5) Platelet Count 55x10^3/uL (140-400) 48x10^3/uL (140-400) Neutrophils (%) (Auto) 83% (31-73) 39% (31-73) Lymphocytes (%) (Auto) 15% (24-48) 53% (24-48) Monocytes (%) (Auto) 1% (0-9) 7% (0-9) Eosinophils (%) (Auto) 1% (0-3) 1% (0-3) Basophils (%) (Auto) 0% (0-3) 1% (0-3) Neutrophils # (Auto) 1.2x10^3uL (1.8-7.7) 0.2x10^3uL (1.8-7.7) Lymphocytes # (Auto) 0.2x10^3/uL (1.0-4.8) 0.2x10^3/uL (1.0-4.8) Monocytes # (Auto) 0.0x10^3/uL (0.0-1.1) 0.0x10^3/uL (0.0-1.1) Eosinophils # (Auto) 0.0x10^3/uL (0.0-0.7) 0.0x10^3/uL (0.0-0.7) Basophils # (Auto) 0.0x10^3/uL (0.0-0.2) 0.0x10^3/uL (0.0-0.2) Segmented Neutrophils % 76% (35-66) Band Neutrophils % 4% (0-9) Lymphocytes % 16% (24-48) Eosinophils % 4% (0-5) Platelet Estimate Decreased (ADEQUATE) Anisocytosis Mod Sodium Level 144mmol/L (136-145) 142mmol/L (136-145) Potassium Level 3.5mmol/L (3.5-5.1) 3.4mmol/L (3.5-5.1) Chloride Level 111mmol/L (98-107) 108mmol/L (98-107) Carbon Dioxide Level 24mmol/L (21-32) 23mmol/L (21-32) Anion Gap 9 (6-14) 11 (6-14) Blood Urea Nitrogen 21mg/dL (7-20) 19mg/dL (7-20) Creatinine 0.9mg/dL (0.6-1.0) 0.9mg/dL (0.6-1.0) Estimated GFR (Cockcroft-Gault) 62.5 62.5 Glucose Level 99mg/dL (70-99) 90mg/dL (70-99) Calcium Level 7.8mg/dL (8.5-10.1) 7.8mg/dL (8.5-10.1) Vancomycin Level Trough 9.3mcg/mL (10.0-20.0) Vancomycin Last Dose Date 11/23/2016 Vancomycin Last Dose Time 1800 Laboratory Tests Test 11/24/16 16:30 11/24/16 17:15 11/25/16 04:47 Hemoglobin 7.7g/dL (12.0-15.5) 6.9g/dL (12.0-15.5) Hematocrit 23.4% (36.0-47.0) 21.1% (36.0-47.0) Vancomycin Level Trough 9.3mcg/mL (10.0-20.0) Vancomycin Last Dose Date 11/23/2016 Vancomycin Last Dose Time 1800 White Blood Count 0.5x10^3/uL (4.0-11.0) Red Blood Count 2.19x10^6/uL (3.50-5.40) Mean Corpuscular Volume 96fL (79-100) Mean Corpuscular Hemoglobin 32pg (25-35) Mean Corpuscular Hemoglobin Concent 33g/dL (31-37) Red Cell Distribution Width 20.4% (11.5-14.5) Platelet Count 48x10^3/uL (140-400) Neutrophils (%) (Auto) 39% (31-73) Lymphocytes (%) (Auto) 53% (24-48) Monocytes (%) (Auto) 7% (0-9) Eosinophils (%) (Auto) 1% (0-3) Basophils (%) (Auto) 1% (0-3) Neutrophils # (Auto) 0.2x10^3uL (1.8-7.7) Lymphocytes # (Auto) 0.2x10^3/uL (1.0-4.8) Monocytes # (Auto) 0.0x10^3/uL (0.0-1.1) Eosinophils # (Auto) 0.0x10^3/uL (0.0-0.7) Basophils # (Auto) 0.0x10^3/uL (0.0-0.2) Sodium Level 142mmol/L (136-145) Potassium Level 3.4mmol/L (3.5-5.1) Chloride Level 108mmol/L (98-107) Carbon Dioxide Level 23mmol/L (21-32) Anion Gap 11 (6-14) Blood Urea Nitrogen 19mg/dL (7-20) Creatinine 0.9mg/dL (0.6-1.0) Estimated GFR (Cockcroft-Gault) 62.5 Glucose Level 90mg/dL (70-99) Calcium Level 7.8mg/dL (8.5-10.1) Microbiology 11/22/16 Blood Culture - Preliminary, Resulted NO GROWTH AFTER 2 DAYS Medications Current Medications Vancomycin HCl (Vanco Per Pharmacy) 1 each PRN DAILY PRN MC SEE COMMENTS Last administered on 11/24/16t 18:13; Start 11/22/16 at 18:30; Stop 11/25/16 at 09:56 ; Status DC Fentanyl Citrate 50 mcg 50 mcg PRN Q15MIN PRN IV PAIN GREATER THAN 3/10 Last administered on 11/23/16 08:42; Start 11/22/16 at 18:30; Stop 11/23/16 at 18:29 ; Status DC Sodium Chloride 1,000 ml @ 100 mls/hr Q10H IV Last administered on 11/22/16 18:40; Start 11/22/16 at 18:16; Stop 11/23/16 at 04:15; Status DC Vancomycin HCl 2 gm/Sodium Chloride 500 ml @ 250 mls/hr 1X ONCE IV Last administered on 11/22/16 18:40; Start 11/22/16 at 19:00; Stop 11/22/16 at 20:59 ; Status DC Vancomycin HCl/ Sodium Chloride (Iv Sodium Chloride 0.9% 250ml) 250 ml @ 167 mls/hr Q24H IV Last administered on 11/23/16 18:18; Start 11/23/16 at 18:00; Stop 11/24/16 at 18:06; Status DC Vancomycin HCl 1 each 1X ONCE MC Last administered on 11/24/16 17:30; Start 11/24/16 at 17:30; Stop 11/24/16 at 17:31; Status DC Ondansetron HCl (Zofran) 4 mg PRN Q8HRS PRN IV NAUSEA/VOMITING; Start 11/22/16 at 20:00; Stop 11/23/16 at 19:59; Status DC Fentanyl Citrate (Fentanyl 2ml Vial) 50 mcg PRN Q2HR PRN IV PAIN; Start at 20:00; Stop 11/23/16 at 19:59; Status DC Acetaminophen (Tylenol) 650 mg PRN Q4HRS PRN PO FEVER Last administered on 11/23 09:43; Start 11/22/16 at 20:00; Stop 11/23/16 at 19:59; Status DC Guaifenesin (Robitussin Dm) 10 ml PRN Q4HRS PRN PO COUGH Last administered on 21:10; Start 11/23/16 at 02:30 Cyanocobalamin (Vitamin B-12) 1,000 mcg QMONTH IM ; Start 11/24/16 at 09:00 Gabapentin (Neurontin) 300 mg TID PO Last administered on 11/25/16 08:24; Start 11/23/16 at 14:00 Lisinopril (Prinivil) 10 mg DAILY PO Last administered on 11/25/16 08:24; Start 11/24/16 at 09:00 Oxycodone/ Acetaminophen (Percocet 5/325) 1 tab QIDPRN PRN PO MOD TO SEV; Start 11/23/16 at 11:30 Trimethoprim/ Sulfamethoxazole (Bactrim Ss) 1 tab BID PO ; Start 11/23/16 at 21: 00; Status UNV Cetirizine HCl (Zyrtec) 10 mg PRN DAILY PRN PO ALLERGIES; Start 11/24/16 at 09: 00 Pantoprazole Sodium (Protonix) 40 mg DAILYAC PO Last administered on 11/25/16 08:24; Start 11/23/16 at 12:00 Oxycodone/ Acetaminophen (Percocet 5/325) 2 tab QIDPRN PRN PO MOD TO SEV Last administered on 11/24/16 21:11; Start 11/23/16 at 11:30 Furosemide (Lasix) 20 mg DAILY IVP Last administered on 11/25/16 08:24; Start 11/23/16 at 12:00 Acetaminophen (Tylenol) 650 mg PRN Q6HRS PRN PO MILD PAIN / TEMP Last administered on 11/25/16 02:11; Start 11/24/16 at 13:30 Piperacillin Sod/ Tazobactam Sod 1 each 1 each PRN DAILY PRN MC SEE COMMENTS; Start 11/24/16 at 17:30 Piperacillin Sod/ Tazobactam Sod 3.375 gm/Sodium Chloride 50 ml @ 100 mls/hr Q6HRS IV Last administered on 11/25/16 06:00; Start 11/24/16 at 18:00 Vancomycin HCl/ Sodium Chloride (Iv Sodium Chloride 0.9% 500ml Bag) 500 ml @ 250 mls/hr Q24H IV Last administered on 11/24/16 18:48; Start 11/24/16 at 18: 30; Stop 11/25/16 at 09:56; Status DC Tbo-Filgrastim (Granix) 480 mcg QHS SQ ; Start 11/25/16 at 21:00 Doxycycline Hyclate (Vibra-Tab) 100 mg BID PO ; Start 11/25/16 at 10:00 Linezolid (Zyvox) 600 mg BID PO ; Start 11/25/16 at 21:00 Active Scripts Active Reported Claritin (Loratadine) 10 Mg Tablet 1 Tab PO DAILY PRN Bactrim 400-80 Mg Tablet (Sulfamethoxazole/Trimethoprim) 1 Each Tablet 1 Tab PO BID Gabapentin 300 Mg Capsule 300 Mg PO TID Zestril (Lisinopril) 10 Mg Tablet 10 Mg PO DAILY Cyanocobalamin Injection (Cyanocobalamin (Vitamin B-12)) 1,000 Mcg/1 Ml Vial 1, 000 Mcg QMONTH Percocet 5-325 Mg Tablet (Oxycodone/Acetaminophen) 1 Each Tablet 1-2 Tab PO Q4- 6HRS Prilosec Otc (Omeprazole Magnesium) 20 Mg Tablet.dr 20 Mg PO DAILY Vitals/I & O Vital Sign - Last 24 Hours 11/24/16 11/24/16 11/24/16 11/24/16 11:00 12:50 14:51 15:06 Temp 98.9 100.2 100.0 100.0 98.9 100.2 100.0 100.0 Pulse 74 75 79 77 Resp 16 B/P 103/49 137/52 123/46 123/46 Pulse Ox 97 98 94 O2 Delivery Room Air Room Air Room Air 11/24/16 11/24/16 11/24/16 11/24/16 15:07 15:08 15:21 15:36 Temp 100.2 100.2 100.0 100.2 100.2 100.2 100.0 100.2 Pulse 79 79 78 77 Resp 16 16 B/P 105/42 105/42 121/41 118/44 11/24/16 11/24/16 11/24/16 11/24/16 15:51 16:04 19:00 20:00 Temp 100.0 99.0 99.9 100.0 99.0 99.9 Pulse 77 71 Resp 20 B/P 122/49 123/47 116/55 Pulse Ox 95 O2 Delivery Room Air Room Air 11/24/16 11/24/16 11/24/16 11/25/16 21:11 23:00 23:01 03:00 Temp 99.6 100.0 99.6 100.0 Pulse 75 76 Resp 23 20 18 20 B/P 97/43 129/57 Pulse Ox 94 97 O2 Delivery Room Air Room Air Room Air Room Air 11/25/16 11/25/16 11/25/16 07:00 07:50 08:24 Temp 100.7 100.7 Pulse 66 66 Resp 16 B/P 122/64 122/64 Pulse Ox 94 O2 Delivery Room Air Room Air Intake and Output 11/24/16 11/24/16 11/25/16 15:00 23:00 07:00 Intake Total 180 ml 1700 ml Output Total 1 ml Balance 180 ml 1699 ml DAMIEN HOPSON III DO Nov 25, 2016 10:14
[2016-11-25] MEDS ORDERED: POTASSIUM CHLORIDE 20 MEQ TABLET.ER. PO ONE (10:15)
[2016-11-25] MEDS: DOXYCYCLINE HYCLATE 100 MG TABLET PO SCH ×2 (11:16→21:11)
[2016-11-25] MEDS ORDERED: DIPHENHYDRAMINE HCL 25 MG CAPSULE PO ONE (12:00)
[2016-11-25] MEDS ORDERED: ACETAMINOPHEN 325 MG TABLET. PO ONE (12:00)
[2016-11-25 12:13] LABS: OBC FLU VALID
--- NOTE | 2016-11-25 12:19 | PDOC ---
Subjective: Subjective: Onc f/u- cholangiocarcinoma Pt reports only receiving 1 hr of a transfusion yesterday due to fevers. No new SOB, pain in leg. Erythema unchanged. Objective: Vital Signs: Vital Signs Date Time Temp Pulse Resp B/P Pulse Ox O2 Delivery O2 Flow Rate FiO2 11/25/16 11:00 100.6 75 16 151/60 94 Room Air 100.6 Physical Exam: Extremities: Other (2+ edema RLE unchanged) General: Alert, Oriented X3, Cooperative, No acute distress Psych/Mental Status: Mental status NL, Mood NL Skin: Other (Erythema worsened) Labs/Imaging: HGB 6.9, plt 48, WBC 0.5 Assessment/Plan A/P: 1. Pancytopenia, worsened- Chemo and infxn related. Unclear if pt really received all of her transfusion yesterday. 1 unit ordered today, recommend Tylenol/ Benadryl premeds. Granix added for decreased ANC and current infection. 2. Cholangiocarcinoma- Plans to see MD Urias this weekend, Dr. Connell 12/01. On gemzar/ xeloda. [facility] may need to be rescheduled now. 3. RLE cellulitis, failed outpt abx. ID following, now on droxy/ zosyn 4. Fever yesterday. Unclear if related to transfusion or vanco. 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 ИВАН HENDRICKS DO Nov 25, 2016 12:19
--- NOTE | 2016-11-25 12:33 | CONS ---
DATE OF CONSULTATION: 11/25/2016 PATIENT'S ROOM: 578 REQUESTING PHYSICIAN: Juana Escobar DO REASON FOR CONSULTATION: Worsening cellulitis. 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 She has been receiving chemotherapy, first diagnosed in 06/2015. Her last treatment was on 11/19/2016 with gemcitabine. She was seen in the outpatient setting by Dr. Connell and was placed on cephalexin. Additionally, she followed up with her primary several days ago secondary to complaints of a cough. However, he was more concerned about how her legs were looked and she was subsequently admitted to [facility] on the . She was placed on vancomycin. On arrival, white blood cell count was 4.5 and hemoglobin was 7.7, but her white count has steadily decreased. Yesterday, it was 1.5. She became anemic. I was consulted yesterday afternoon. Given her worsening white blood cell count, I added Zosyn to the vancomycin as she has been treated. Granix has also been started on the . Today, the patient feels about the same. She still has some sinus congestion and cough. She has continued to run fevers, but she has also received some intermittent transfusions. She has no sore throat and cough is dry. Her recently finished a course of Augmentin for sinus infection. She denies any nausea, vomiting, diarrhea, dysuria, frequency or urgency. Reports that she is scheduled to travel to [facility] this coming Tuesday to undergo lab work and CAT scan and then followup with evaluation on Tuesday. Currently, she is comfortable in a chair. PAST MEDICAL HISTORY: Positive for iron deficiency anemia, hypertension, degenerative joint disease, gastroesophageal reflux disease, urinary incontinence, DCIS of left breast, status post lumpectomy, radiation and 99, recurrent urinary tract infections , above mentioned cholangiogram of stage IV carcinoma, history of PE, DVT and history of neuropathy. PAST SURGICAL HISTORY: Positive for gastric bypass surgeries, total abdominal hysterectomy, bilateral salpingo-oophorectomy, ____, left lumpectomy, hernia repair, liver surgery as well as Port-A-Cath placement. REVIEW OF SYSTEMS: Otherwise negative except for mentioned above. ALLERGIES: No known drug allergies. SOCIAL HISTORY: No tobacco, alcohol or drug use. She is . FAMILY HISTORY: Noncontributory for any malignancies; however, remembers her did have a recent sinus infection. CURRENT MEDICATIONS: Include vancomycin, Zosyn. Zyrtec, Granix, Lasix, Neurontin, Prinivil, Protonix. Other meds are available, had been reviewed in the chart. PHYSICAL EXAMINATION: VITAL SIGNS: Most recent temperature 100.7, pulse 66, blood pressure 122/64, satting 94% on room air, respiratory rate 16. CONSTITUTIONAL: She is very pleasant. She is cooperative. She is in no acute distress. HEENT: Pupils are equal and reactive. Oral cavity, oropharynx is clear. NECK: Supple. No JVD. LUNGS: Clear to auscultation bilaterally. HEART: S1, S2. CHEST: Port-A-Cath, right chest without signs of any complications. ABDOMEN: Soft, nontender, nondistended. Positive bowel sounds. EXTREMITIES: Lower extremities, she has bilateral lower extremity edema 2-3+, right greater than left. She had bilateral erythema. Her right leg is warm. There is some mild tenderness. SKIN: Otherwise warm to touch without signs of rash. NEUROLOGIC: She is nonfocal and appropriate. PSYCHIATRIC: Affect is pleasant. LABORATORY DATA: White count today is 0.5, hemoglobin 6.9, platelets of 48 with 53 lymphs, 7 monos, 39 neutrophils, a creatinine of 0.9, glucose of 90. Urinalysis is not consistent with urinary tract infection. Blood cultures are negative. Lower extremity ultrasounds were negative for DVT. IMPRESSION: 1. Bilateral lower extremity cellulitis, right greater than left. 2. Fever, questionable secondary to infection versus medications versus transfusion. 3. Immunosuppression, currently on Granix started on the . 5. Stage IV cholangiocarcinoma, status post chemotherapy. RECOMMENDATIONS: We will obtain a flu screen given her cough and her congestion. We will add doxycycline for atypical coverage as well as additional skin coverage. We will begin Tubigrips for compression to help heal the lower extremity cellulitis by removing some of the fluid. We will discontinue the vancomycin, rule out drug fever and add Zyvox by mouth. We will continue the Zosyn and we will follow up on labs and cultures. This was discussed with . Thank you for allowing me to participate in this patient's care. If you have any questions, please do not hesitate to contact me. RAHEEM TY MD DR: Ariella JOB#: [id number] / [id number]
[2016-11-25] MEDS: GUAIFENESIN DM 200MG/20MG 10 ML SYRUP. PO PRN (16:45)
[2016-11-25] MEDS ORDERED: TBO-FILGRASTIM 480 MCG/0.8 ML SYRINGE. SQ SCH (21:00)
[2016-11-25] MEDS: LINEZOLID 600 MG TABLET PO SCH (21:11)
[2016-11-25] MEDS: OXYCODONE/APAP 5/325 TABLET. PO PRN (21:11)
[2016-11-25] MEDS: MICAFUNGIN 100 MG in IV DEXTROSE 5% 100 ML IV SCH (23:11)
[2016-11-26] MEDS: PIPERACILLIN/TAZOBACTAM 3.375 GM in IV NORMAL SALINE 50ML 50 ML IV SCH ×4 (00:31→17:46)
[2016-11-26] MEDS: GUAIFENESIN DM 200MG/20MG 10 ML SYRUP. PO PRN ×2 (02:54→17:45)
[2016-11-26 03:00] VITALS: BP 123/50
[2016-11-26 06:01] LABS: BASO % 0 % (0-3); EOS % 0 % (0-3); HEMATOCRIT 26.6 % (36.0-47.0); HEMOGLOBIN 8.7 g/dL (12.0-15.5); LYMPH # 0.4 x10^3/uL (1.0-4.8); LYMPH % 8 % (24-48); MEAN CORPUSCULAR HEMOGLOBIN 32 pg (25-35); MEAN CORPUSCULAR HGB CONC 33 g/dL (31-37); MEAN CORPUSCULAR VOLUME 96 fL (79-100); MONO % 5 % (0-9); NEUT % 87 % (31-73); PLATELET COUNT 40 x10^3/uL (140-400); RED BLOOD COUNT 2.77 x10^6/uL (3.50-5.40); RED CELL DISTRIBUTION WIDTH 18.5 % (11.5-14.5); WHITE BLOOD COUNT 4.9 x10^3/uL (4.0-11.0)
[2016-11-26 06:18] LABS: CALCIUM 8.2 mg/dL (8.5-10.1); GFR 55.3; POTASSIUM 3.5 mmol/L (3.5-5.1)
[2016-11-26] MEDS: PANTOPRAZOLE 40 MG TABLET. PO SCH (06:22)
[2016-11-26 07:00] VITALS: BP 127/59
--- NOTE | 2016-11-26 08:29 | PDOC ---
PROGRESS NOTES Chief Complaint Chief Complaint Cellulitis History of Present Illness History of Present Illness Overnight patient had a temperature of 103.8. ID was notified and placed patient on micafungin. Patient is feeling well aside from pain in her left leg. Her cellulitis is greatly improved today. She does report a cough and congestion that is not relieved by Robitussin DM. We will order a CXR and add afirin. Her hemoglobin has risen following transfusion, will continue to monitor. Vitals Vitals Vital Signs Date Time Temp Pulse Resp B/P Pulse Ox O2 Delivery O2 Flow Rate FiO2 11/26/16 07:00 100.4 84 18 127/59 93 Room Air 100.4 11/25/16 23:00 2.0 Physical Exam General: Alert, Oriented X3, Cooperative, No acute distress Heart: Regular rate, Normal S1, Normal S2 Lungs: Clear, Other (no wheezing) Abdomen: Soft, No tenderness Extremities: Other (2+ edema RLE unchanged) Skin: Other (Erythema improving, some warmth ) Labs LABS Laboratory Tests Test 11/25/16 11:50 11/26/16 05:07 Influenza Type A Antigen Negative (NEGATIVE) Influenza Type B Antigen Negative (NEGATIVE) White Blood Count 4.9x10^3/uL (4.0-11.0) Red Blood Count 2.77x10^6/uL (3.50-5.40) Hemoglobin 8.7g/dL (12.0-15.5) Hematocrit 26.6% (36.0-47.0) Mean Corpuscular Volume 96fL (79-100) Mean Corpuscular Hemoglobin 32pg (25-35) Mean Corpuscular Hemoglobin Concent 33g/dL (31-37) Red Cell Distribution Width 18.5% (11.5-14.5) Platelet Count 40x10^3/uL (140-400) Neutrophils (%) (Auto) 87% (31-73) Lymphocytes (%) (Auto) 8% (24-48) Monocytes (%) (Auto) 5% (0-9) Eosinophils (%) (Auto) 0% (0-3) Basophils (%) (Auto) 0% (0-3) Neutrophils # (Auto) 4.3x10^3uL (1.8-7.7) Lymphocytes # (Auto) 0.4x10^3/uL (1.0-4.8) Monocytes # (Auto) 0.2x10^3/uL (0.0-1.1) Eosinophils # (Auto) 0.0x10^3/uL (0.0-0.7) Basophils # (Auto) 0.0x10^3/uL (0.0-0.2) Sodium Level 142mmol/L (136-145) Potassium Level 3.5mmol/L (3.5-5.1) Chloride Level 107mmol/L (98-107) Carbon Dioxide Level 24mmol/L (21-32) Anion Gap 11 (6-14) Blood Urea Nitrogen 16mg/dL (7-20) Creatinine 1.0mg/dL (0.6-1.0) Estimated GFR (Cockcroft-Gault) 55.3 Glucose Level 91mg/dL (70-99) Calcium Level 8.2mg/dL (8.5-10.1) Review of Systems Review of Systems Denies chest pain and shortness of breath. Reports her left leg remains painful. Has a cough and congestion. Assessment and Plan Assessmemt and Plan Problems Medical Problems: (1) Cellulitis Status: Acute ASSESSMENT: Cellulitis Cholangiocarcinoma, currently receiving chemotherapy Pancytopenia History of breast cancer Hypokalemia, resolved PLAN: CXR ordered due to cough Added Afirin for congestion Continue to monitor for fever. Per hematology, is able to discharge when counts are stable without transfusions , fever resolves and pending ID recommendations Continue to monitor progression/recession of erythema from markings Continue antibiotics per ID recommendations ID is following their recommendations are appreciated Hematology is following, their recommendations are appreciated Continue lasix Continue pain control with percocet Continue to trend daily labs PT/OT eval and treat Problems: Comment Review of Relevant I have reviewed the following items ketty (where applicable) has been applied. Labs Laboratory Tests Test 11/24/16 16:30 11/24/16 17:15 11/25/16 04:47 11/25/16 11:50 Hemoglobin 7.7g/dL (12.0-15.5) 6.9g/dL (12.0-15.5) Hematocrit 23.4% (36.0-47.0) 21.1% (36.0-47.0) Vancomycin Level Trough 9.3mcg/mL (10.0-20.0) Vancomycin Last Dose Date 11/23/2016 Vancomycin Last Dose Time 1800 White Blood Count 0.5x10^3/uL (4.0-11.0) Red Blood Count 2.19x10^6/uL (3.50-5.40) Mean Corpuscular Volume 96fL (79-100) Mean Corpuscular Hemoglobin 32pg (25-35) Mean Corpuscular Hemoglobin Concent 33g/dL (31-37) Red Cell Distribution Width 20.4% (11.5-14.5) Platelet Count 48x10^3/uL (140-400) Neutrophils (%) (Auto) 39% (31-73) Lymphocytes (%) (Auto) 53% (24-48) Monocytes (%) (Auto) 7% (0-9) Eosinophils (%) (Auto) 1% (0-3) Basophils (%) (Auto) 1% (0-3) Neutrophils # (Auto) 0.2x10^3uL (1.8-7.7) Lymphocytes # (Auto) 0.2x10^3/uL (1.0-4.8) Monocytes # (Auto) 0.0x10^3/uL (0.0-1.1) Eosinophils # (Auto) 0.0x10^3/uL (0.0-0.7) Basophils # (Auto) 0.0x10^3/uL (0.0-0.2) Sodium Level 142mmol/L (136-145) Potassium Level 3.4mmol/L (3.5-5.1) Chloride Level 108mmol/L (98-107) Carbon Dioxide Level 23mmol/L (21-32) Anion Gap 11 (6-14) Blood Urea Nitrogen 19mg/dL (7-20) Creatinine 0.9mg/dL (0.6-1.0) Estimated GFR (Cockcroft-Gault) 62.5 Glucose Level 90mg/dL (70-99) Calcium Level 7.8mg/dL (8.5-10.1) Influenza Type A Antigen Negative (NEGATIVE) Influenza Type B Antigen Negative (NEGATIVE) Test 11/26/16 05:07 White Blood Count 4.9x10^3/uL (4.0-11.0) Red Blood Count 2.77x10^6/uL (3.50-5.40) Hemoglobin 8.7g/dL (12.0-15.5) Hematocrit 26.6% (36.0-47.0) Mean Corpuscular Volume 96fL (79-100) Mean Corpuscular Hemoglobin 32pg (25-35) Mean Corpuscular Hemoglobin Concent 33g/dL (31-37) Red Cell Distribution Width 18.5% (11.5-14.5) Platelet Count 40x10^3/uL (140-400) Neutrophils (%) (Auto) 87% (31-73) Lymphocytes (%) (Auto) 8% (24-48) Monocytes (%) (Auto) 5% (0-9) Eosinophils (%) (Auto) 0% (0-3) Basophils (%) (Auto) 0% (0-3) Neutrophils # (Auto) 4.3x10^3uL (1.8-7.7) Lymphocytes # (Auto) 0.4x10^3/uL (1.0-4.8) Monocytes # (Auto) 0.2x10^3/uL (0.0-1.1) Eosinophils # (Auto) 0.0x10^3/uL (0.0-0.7) Basophils # (Auto) 0.0x10^3/uL (0.0-0.2) Sodium Level 142mmol/L (136-145) Potassium Level 3.5mmol/L (3.5-5.1) Chloride Level 107mmol/L (98-107) Carbon Dioxide Level 24mmol/L (21-32) Anion Gap 11 (6-14) Blood Urea Nitrogen 16mg/dL (7-20) Creatinine 1.0mg/dL (0.6-1.0) Estimated GFR (Cockcroft-Gault) 55.3 Glucose Level 91mg/dL (70-99) Calcium Level 8.2mg/dL (8.5-10.1) Laboratory Tests Test 11/25/16 11:50 11/26/16 05:07 Influenza Type A Antigen Negative (NEGATIVE) Influenza Type B Antigen Negative (NEGATIVE) White Blood Count 4.9x10^3/uL (4.0-11.0) Red Blood Count 2.77x10^6/uL (3.50-5.40) Hemoglobin 8.7g/dL (12.0-15.5) Hematocrit 26.6% (36.0-47.0) Mean Corpuscular Volume 96fL (79-100) Mean Corpuscular Hemoglobin 32pg (25-35) Mean Corpuscular Hemoglobin Concent 33g/dL (31-37) Red Cell Distribution Width 18.5% (11.5-14.5) Platelet Count 40x10^3/uL (140-400) Neutrophils (%) (Auto) 87% (31-73) Lymphocytes (%) (Auto) 8% (24-48) Monocytes (%) (Auto) 5% (0-9) Eosinophils (%) (Auto) 0% (0-3) Basophils (%) (Auto) 0% (0-3) Neutrophils # (Auto) 4.3x10^3uL (1.8-7.7) Lymphocytes # (Auto) 0.4x10^3/uL (1.0-4.8) Monocytes # (Auto) 0.2x10^3/uL (0.0-1.1) Eosinophils # (Auto) 0.0x10^3/uL (0.0-0.7) Basophils # (Auto) 0.0x10^3/uL (0.0-0.2) Sodium Level 142mmol/L (136-145) Potassium Level 3.5mmol/L (3.5-5.1) Chloride Level 107mmol/L (98-107) Carbon Dioxide Level 24mmol/L (21-32) Anion Gap 11 (6-14) Blood Urea Nitrogen 16mg/dL (7-20) Creatinine 1.0mg/dL (0.6-1.0) Estimated GFR (Cockcroft-Gault) 55.3 Glucose Level 91mg/dL (70-99) Calcium Level 8.2mg/dL (8.5-10.1) Microbiology 11/22/16 Blood Culture - Preliminary, Resulted NO GROWTH AFTER 3 DAYS Medications Current Medications Vancomycin HCl (Vanco Per Pharmacy) 1 each PRN DAILY PRN MC SEE COMMENTS Last administered on 11/24/16t 18:13; Start 11/22/16 at 18:30; Stop 11/25/16 at 09:56 ; Status DC Fentanyl Citrate 50 mcg 50 mcg PRN Q15MIN PRN IV PAIN GREATER THAN 3/10 Last administered on 11/23/16 08:42; Start 11/22/16 at 18:30; Stop 11/23/16 at 18:29 ; Status DC Sodium Chloride 1,000 ml @ 100 mls/hr Q10H IV Last administered on 11/22/16 18:40; Start 11/22/16 at 18:16; Stop 11/23/16 at 04:15; Status DC Vancomycin HCl 2 gm/Sodium Chloride 500 ml @ 250 mls/hr 1X ONCE IV Last administered on 11/22/16 18:40; Start 11/22/16 at 19:00; Stop 11/22/16 at 20:59 ; Status DC Vancomycin HCl/ Sodium Chloride (Iv Sodium Chloride 0.9% 250ml) 250 ml @ 167 mls/hr Q24H IV Last administered on 11/23/16 18:18; Start 11/23/16 at 18:00; Stop 11/24/16 at 18:06; Status DC Vancomycin HCl 1 each 1X ONCE MC Last administered on 11/24/16 17:30; Start 11/24/16 at 17:30; Stop 11/24/16 at 17:31; Status DC Ondansetron HCl (Zofran) 4 mg PRN Q8HRS PRN IV NAUSEA/VOMITING; Start 11/22/16 at 20:00; Stop 11/23/16 at 19:59; Status DC Fentanyl Citrate (Fentanyl 2ml Vial) 50 mcg PRN Q2HR PRN IV PAIN; Start at 20:00; Stop 11/23/16 at 19:59; Status DC Acetaminophen (Tylenol) 650 mg PRN Q4HRS PRN PO FEVER Last administered on 11/23 09:43; Start 11/22/16 at 20:00; Stop 11/23/16 at 19:59; Status DC Guaifenesin (Robitussin Dm) 10 ml PRN Q4HRS PRN PO COUGH Last administered on 02:54; Start 11/23/16 at 02:30 Cyanocobalamin (Vitamin B-12) 1,000 mcg QMONTH IM ; Start 11/24/16 at 09:00 Gabapentin (Neurontin) 300 mg TID PO Last administered on 11/25/16 21:11; Start 11/23/16 at 14:00 Lisinopril (Prinivil) 10 mg DAILY PO Last administered on 11/25/16 08:24; Start 11/24/16 at 09:00 Oxycodone/ Acetaminophen (Percocet 5/325) 1 tab QIDPRN PRN PO MOD TO SEV; Start 11/23/16 at 11:30 Trimethoprim/ Sulfamethoxazole (Bactrim Ss) 1 tab BID PO ; Start 11/23/16 at 21: 00; Status UNV Cetirizine HCl (Zyrtec) 10 mg PRN DAILY PRN PO ALLERGIES; Start 11/24/16 at 09: 00 Pantoprazole Sodium (Protonix) 40 mg DAILYAC PO Last administered on 11/26/16 06:22; Start 11/23/16 at 12:00 Oxycodone/ Acetaminophen (Percocet 5/325) 2 tab QIDPRN PRN PO MOD TO SEV Last administered on 11/25/16 21:11; Start 11/23/16 at 11:30 Furosemide (Lasix) 20 mg DAILY IVP Last administered on 11/25/16 08:24; Start 11/23/16 at 12:00 Acetaminophen (Tylenol) 650 mg PRN Q6HRS PRN PO MILD PAIN / TEMP Last administered on 11/25/16 02:11; Start 11/24/16 at 13:30 Piperacillin Sod/ Tazobactam Sod 1 each 1 each PRN DAILY PRN MC SEE COMMENTS; Start 11/24/16 at 17:30 Piperacillin Sod/ Tazobactam Sod 3.375 gm/Sodium Chloride 50 ml @ 100 mls/hr Q6HRS IV Last administered on 11/26/16 06:22; Start 11/24/16 at 18:00 Vancomycin HCl/ Sodium Chloride (Iv Sodium Chloride 0.9% 500ml Bag) 500 ml @ 250 mls/hr Q24H IV Last administered on 11/24/16 18:48; Start 11/24/16 at 18: 30; Stop 11/25/16 at 09:56; Status DC Tbo-Filgrastim (Granix) 480 mcg QHS SQ Last administered on 11/25/16 21:12; Start 11/25/16 at 21:00 Doxycycline Hyclate (Vibra-Tab) 100 mg BID PO Last administered on 11/25/16 21 :11; Start 11/25/16 at 10:00 Linezolid (Zyvox) 600 mg BID PO Last administered on 11/25/16 21:11; Start at 21:00 Potassium Chloride (Klor-Con) 40 meq 1X ONCE PO Last administered on 11:17; Start 11/25/16 at 10:15; Stop 11/25/16 at 10:16; Status DC Acetaminophen (Tylenol) 650 mg 1X ONCE PO Last administered on 11/25/16 12:02 ; Start 11/25/16 at 12:00; Stop 11/25/16 at 12:01; Status DC Diphenhydramine HCl 25 mg 25 mg 1X ONCE PO Last administered on 11/25/16 12: 02; Start 11/25/16 at 12:00; Stop 11/25/16 at 12:01; Status DC Micafungin Sodium/ Dextrose (Mycamine) 100 ml @ 100 mls/hr Q24H IV Last administered on 11/25/16 23:11; Start 11/25/16 at 23:00 Active Scripts Active Reported Claritin (Loratadine) 10 Mg Tablet 1 Tab PO DAILY PRN Bactrim 400-80 Mg Tablet (Sulfamethoxazole/Trimethoprim) 1 Each Tablet 1 Tab PO BID Gabapentin 300 Mg Capsule 300 Mg PO TID Zestril (Lisinopril) 10 Mg Tablet 10 Mg PO DAILY Cyanocobalamin Injection (Cyanocobalamin (Vitamin B-12)) 1,000 Mcg/1 Ml Vial 1, 000 Mcg QMONTH Percocet 5-325 Mg Tablet (Oxycodone/Acetaminophen) 1 Each Tablet 1-2 Tab PO Q4- 6HRS Prilosec Otc (Omeprazole Magnesium) 20 Mg Tablet.dr 20 Mg PO DAILY Vitals/I & O Vital Sign - Last 24 Hours 11/25/16 11/25/16 11/25/16 11/25/16 11:00 12:45 12:57 13:15 Temp 100.6 100.6 100.6 99.6 100.6 100.6 100.6 99.6 Pulse 75 79 79 71 Resp 20 16 B/P 151/60 133/64 133/64 113/51 Pulse Ox 94 O2 Delivery Room Air 11/25/16 11/25/16 11/25/16 11/25/16 13:16 14:15 14:15 14:15 Temp 99.6 99.5 99.5 99.5 99.6 99.5 99.5 99.5 Pulse 71 77 77 77 Resp 16 B/P 113/51 127/46 127/46 127/46 11/25/16 11/25/16 11/25/16 11/25/16 14:55 15:15 15:15 16:15 Temp 98.9 99.7 99.7 99.3 98.9 99.7 99.7 99.3 Pulse 75 72 72 73 Resp B/P 117/51 112/54 112/54 114/61 Pulse Ox 92 93 O2 Delivery Room Air Room Air 11/25/16 11/25/16 11/25/16 11/25/16 19:00 20:30 21:11 22:15 Temp 103.8 103.8 Pulse 79 Resp B/P 141/59 Pulse Ox 96 96 96 O2 Delivery Room Air Room Air Room Air Room Air 11/25/16 11/26/16 11/26/16 23:00 03:00 07:00 Temp 100.7 100.2 100.4 100.7 100.2 100.4 Pulse 77 72 84 Resp 18 B/P 105/40 123/50 127/59 Pulse Ox 98 92 93 O2 Delivery Nasal Cannula Room Air Room Air O2 Flow Rate 2.0 Intake and Output 11/25/16 11/25/16 11/26/16 15:00 23:00 07:00 Intake Total 370 ml 10 ml 450 ml Output Total 0 ml Balance 370 ml 10 ml 450 ml DAMIEN HOPSON III DO Nov 26, 2016 08:29
[2016-11-26] MEDS: FUROSEMIDE 20 MG/2 ML VIAL IVP SCH (08:33)
[2016-11-26] MEDS: DOXYCYCLINE HYCLATE 100 MG TABLET PO SCH ×2 (08:33→21:07)
[2016-11-26] MEDS: LINEZOLID 600 MG TABLET PO SCH ×2 (08:33→21:07)
[2016-11-26] MEDS: LISINOPRIL 10 MG TABLET PO SCH (08:33)
[2016-11-26] MEDS: GABAPENTIN 300 MG CAPSULE. PO SCH ×3 (08:33→21:07)
--- NOTE | 2016-11-26 09:53 | PDOC ---
Infectious Disease Note Subjective Subjective Still congested but feels better. Legs better but still pain in back ROS ROS HEENT: Denies blurred vision, sore throat CV: Denies chest pain RESP: Denies shortness of air, cough GI: Denies n/v/d NEURO: Denies confusion, dizziness MSK: Denies weakness, joint pain/swelling Vital Sign Vital Signs Vital Signs Date Time Temp Pulse Resp B/P Pulse Ox O2 Delivery O2 Flow Rate FiO2 11/26/16 08:33 84 127/59 11/26/16 08:15 Room Air 11/26/16 07:00 100.4 18 93 100.4 11/25/16 23:00 2.0 Physical Exam PHYSICAL EXAM GENERAL: NAD, Alert. in chair HEENT: PERRL, OC/OP -clear NECK: Supple, no JVD, no LN LUNGS: Clear HEART: S1S2, no gallop, no murmur ABD: Soft, NT, no organomegaly, no rebound EXT: Improved edema warmth and erythema even in a dependent position. RLE bottom steep tender posteriorly, no cyanosis LOGISTICS PLANNER: Alert, 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, no focal neurologic deficit SKIN: No rash IV: Port Right chest is clean Labs Lab Laboratory Tests Test 11/25/16 11:50 11/26/16 05:07 Influenza Type A Antigen Negative (NEGATIVE) Influenza Type B Antigen Negative (NEGATIVE) White Blood Count 4.9x10^3/uL (4.0-11.0) Red Blood Count 2.77x10^6/uL (3.50-5.40) Hemoglobin 8.7g/dL (12.0-15.5) Hematocrit 26.6% (36.0-47.0) Mean Corpuscular Volume 96fL (79-100) Mean Corpuscular Hemoglobin 32pg (25-35) Mean Corpuscular Hemoglobin Concent 33g/dL (31-37) Red Cell Distribution Width 18.5% (11.5-14.5) Platelet Count 40x10^3/uL (140-400) Neutrophils (%) (Auto) 87% (31-73) Lymphocytes (%) (Auto) 8% (24-48) Monocytes (%) (Auto) 5% (0-9) Eosinophils (%) (Auto) 0% (0-3) Basophils (%) (Auto) 0% (0-3) Neutrophils # (Auto) 4.3x10^3uL (1.8-7.7) Lymphocytes # (Auto) 0.4x10^3/uL (1.0-4.8) Monocytes # (Auto) 0.2x10^3/uL (0.0-1.1) Eosinophils # (Auto) 0.0x10^3/uL (0.0-0.7) Basophils # (Auto) 0.0x10^3/uL (0.0-0.2) Sodium Level 142mmol/L (136-145) Potassium Level 3.5mmol/L (3.5-5.1) Chloride Level 107mmol/L (98-107) Carbon Dioxide Level 24mmol/L (21-32) Anion Gap 11 (6-14) Blood Urea Nitrogen 16mg/dL (7-20) Creatinine 1.0mg/dL (0.6-1.0) Estimated GFR (Cockcroft-Gault) 55.3 Glucose Level 91mg/dL (70-99) Calcium Level 8.2mg/dL (8.5-10.1) Objective Assessment Bilateral LE cellulitis R > L better Fever - ? ID vs med +/- Transfusion. Flu screen - neg. Clinically she looks better Immunosupression - Granix 3/16 Stage 4 Cholangiocarcinoma s/p chemo Plan Plan of Care Cont Doxy/Zyvox/Zosyn Micafungin added with fever. hopefully fever curve will improve wiht holding Granix/off Vanc and no transfusions F/u labs and cults Elevation of LE D/w RAHEEM Nugent MD Nov 26, 2016 09:53
--- NOTE | 2016-11-26 10:07 | PDOC ---
Subjective: Subjective: Onc f/u- Cholangiocarcinoma, cellulitis Pt with ongoing fevers but clinically feels well, looks well. No SOB, CP. Cellulitis greatly improved but still a lot of pain in her RLE. Objective: Vital Signs: Vital Signs Date Time Temp Pulse Resp B/P Pulse Ox O2 Delivery O2 Flow Rate FiO2 11/26/16 08:33 84 127/59 11/26/16 08:15 Room Air 11/26/16 07:00 100.4 18 93 100.4 11/25/16 23:00 2.0 Physical Exam: General: Alert, Oriented X3, Cooperative, No acute distress, Other (clinically does not look ill) Lungs: Other (no resp distress) Musculoskeletal: Other (RLE still very tender to any touch, 2+ edema RLE) Psych/Mental Status: Mental status NL, Mood NL Skin: Other (RLE cellulitis has lessened in intensity) Labs/Imaging: Hgb holding at 8.7 from 6.0 Plt still 40 ANC > 4 Assessment/Plan A/P: 1. Pancytopenia- Chemo and infxn related. Will DC granix as ANC now > 4. Avoid transfusions unless hgb < 7, plt < 10, unclear if this led to her fevers. If PRBC needed, please give tylenol/ Benadryl premeds. 2. Cholangiocarcinoma- MD Urias visit this weekend will need to be rescheduled. Had planned to see Dr. Connell 12/01. On gemzar/ xeloda, hold until over acute events/ cytopenias improve. 3. RLE cellulitis. Improved today. Abx per ID. 4. Ongoing fevers though clinically pt looks well. Unclear if medication vs transfusion related or infxn. May improve now that ANC has risen. Ok to DC over the weekend if counts stable without ongoing transfusions, fevers resolve, ok with ID. D/W Dr. Casas. Dr. Gallardo is covering this weekend if any acute issues arise; Dr. Connell will return on Tuesday or see her in clinic 12/01. ИВАН HENDRICKS DO Nov 26, 2016 10:07
[2016-11-26 10:46] VITALS: BP 141/68
[2016-11-26 10:59] LABS: ANISOCYTOSIS SLIGHT; PLT ESTIMATE ADEQUATE (ADEQUATE)
[2016-11-26] MEDS: OXYMETAZOLINE 0.05% NASAL SPRAY 30ML BOTTLE. NS SCH ×2 (11:47→21:07)
--- NOTE | 2016-11-26 13:15 | RAD ---
Chest, 2 views, 11/26/2016: History: Cough, cellulitis No previous chest radiographs are available at this time for comparison purposes. A right Port-A-Cath extends into the superior vena cava. The heart is within normal limits in size. There are mild right parahilar and left basilar infiltrates. There is no evidence of pleural fluid. Mild degenerative changes are evident in the spine. IMPRESSION: 1. A right Port-A-Cath extends into the superior vena cava. 2. Mild right parahilar and left basilar infiltrates suggesting pneumonia. Pulmonary edema is less likely.
[2016-11-26 15:03] VITALS: BP 123/51
[2016-11-26 17:12] LABS: HEMATOCRIT 27.5 % (36.0-47.0)
[2016-11-26 19:30] VITALS: BP 122/62
[2016-11-26] MEDS: OXYCODONE/APAP 5/325 TABLET. PO PRN (21:12)
[2016-11-26] MEDS: MICAFUNGIN 100 MG in IV DEXTROSE 5% 100 ML IV SCH (23:00)
[2016-11-26 23:53] VITALS: BP 113/48
[2016-11-27 03:15] VITALS: BP 112/51
[2016-11-27] MEDS: GUAIFENESIN DM 200MG/20MG 10 ML SYRUP. PO PRN ×3 (03:34→21:21)
[2016-11-27 05:28] LABS: BASO % 0 % (0-3); EOS % 0 % (0-3); HEMATOCRIT 25.8 % (36.0-47.0); HEMOGLOBIN 8.6 g/dL (12.0-15.5); LYMPH # 0.6 x10^3/uL (1.0-4.8); LYMPH % 4 % (24-48); MEAN CORPUSCULAR HEMOGLOBIN 31 pg (25-35); MEAN CORPUSCULAR HGB CONC 33 g/dL (31-37); MEAN CORPUSCULAR VOLUME 94 fL (79-100); MONO % 5 % (0-9); NEUT % 92 % (31-73); PLATELET COUNT 33 x10^3/uL (140-400); RED BLOOD COUNT 2.76 x10^6/uL (3.50-5.40); RED CELL DISTRIBUTION WIDTH 19.7 % (11.5-14.5)
[2016-11-27 05:52] LABS: CALCIUM 8.2 mg/dL (8.5-10.1); CREATININE 1.1 mg/dL (0.6-1.0); GFR 49.5
[2016-11-27 05:57] LABS: POTASSIUM 2.9 mmol/L (3.5-5.1)
[2016-11-27] MEDS: PIPERACILLIN/TAZOBACTAM 3.375 GM in IV NORMAL SALINE 50ML 50 ML IV SCH ×6 (06:00→21:22)
[2016-11-27] MEDS ORDERED: POTASSIUM CHLORIDE 20MEQ 50 ML IV ONE (06:15)
[2016-11-27] MEDS ORDERED: POTASSIUM CHLORIDE 20 MEQ TABLET.ER. PO ONE ×2 (06:30→09:15)
[2016-11-27 07:00] VITALS: BP 129/53
[2016-11-27] MEDS: POTASSIUM CHLORIDE 10MEQ 100 ML IV SCH ×2 (07:10→10:03)
[2016-11-27 07:18] LABS: ANISOCYTOSIS PRESENT; MICROCYTOSIS PRESENT; POLYCHROMASIA PRESENT
[2016-11-27 08:08] LABS: PLT ESTIMATE DECREASED (ADEQUATE)
--- NOTE | 2016-11-27 09:07 | PDOC ---
PROGRESS NOTES Chief Complaint Chief Complaint Cellulitis History of Present Illness History of Present Illness Patient reports having a difficult night due to nausea. Her cough is still present. CXR showed pneumonia, will consult pulmonology. WBC increased, likely due to neupogen. Vitals Vitals Vital Signs Date Time Temp Pulse Resp B/P Pulse Ox O2 Delivery O2 Flow Rate FiO2 11/27/16 07:00 97.9 61 16 129/53 94 Room Air 97.9 11/26/16 20:00 2.0 Physical Exam General: Alert, Oriented X3, Cooperative, No acute distress, Other (clinically does not look ill) Heart: Regular rate, No murmurs Lungs: Clear, Other (no wheezing, cough) Abdomen: Soft, No tenderness Extremities: Other (2+ edema RLE unchanged) Skin: Other (Erythema improving) Labs LABS Laboratory Tests Test 11/26/16 16:50 11/27/16 04:50 Hemoglobin 9.0g/dL (12.0-15.5) 8.6g/dL (12.0-15.5) Hematocrit 27.5% (36.0-47.0) 25.8% (36.0-47.0) Platelet Count 36x10^3/uL (140-400) 33x10^3/uL (140-400) White Blood Count 16.0x10^3/uL (4.0-11.0) Red Blood Count 2.76x10^6/uL (3.50-5.40) Mean Corpuscular Volume 94fL (79-100) Mean Corpuscular Hemoglobin 31pg (25-35) Mean Corpuscular Hemoglobin Concent 33g/dL (31-37) Red Cell Distribution Width 19.7% (11.5-14.5) Neutrophils (%) (Auto) 92% (31-73) Lymphocytes (%) (Auto) 4% (24-48) Monocytes (%) (Auto) 5% (0-9) Eosinophils (%) (Auto) 0% (0-3) Basophils (%) (Auto) 0% (0-3) Neutrophils # (Auto) 14.7x10^3uL (1.8-7.7) Lymphocytes # (Auto) 0.6x10^3/uL (1.0-4.8) Monocytes # (Auto) 0.8x10^3/uL (0.0-1.1) Eosinophils # (Auto) 0.0x10^3/uL (0.0-0.7) Basophils # (Auto) 0.0x10^3/uL (0.0-0.2) Segmented Neutrophils % 85% (35-66) Band Neutrophils % 10% (0-9) Lymphocytes % 1% (24-48) Atypical Lymphocytes % (Manual) 1% (0-0) Monocytes % 3% (0-10) Platelet Estimate Decreased (ADEQUATE) Polychromasia Present Anisocytosis Present Microcytosis Present Macrocytosis Present Sodium Level 143mmol/L (136-145) Potassium Level 2.9mmol/L (3.5-5.1) Chloride Level 107mmol/L (98-107) Carbon Dioxide Level 24mmol/L (21-32) Anion Gap 12 (6-14) Blood Urea Nitrogen 18mg/dL (7-20) Creatinine 1.1mg/dL (0.6-1.0) Estimated GFR (Cockcroft-Gault) 49.5 Glucose Level 89mg/dL (70-99) Calcium Level 8.2mg/dL (8.5-10.1) Review of Systems Review of Systems Denies chest pain and shortness of breath. Denies fever or chills. Reports nausea. Continued cough Assessment and Plan Assessmemt and Plan Problems Medical Problems: (1) Cellulitis Status: Acute ASSESSMENT: Cellulitis Cholangiocarcinoma, currently receiving chemotherapy Pancytopenia History of breast cancer Hypokalemia PLAN: Replaced potassium with 40mEq PO Consulted pulmonology Continue Afirin for congestion Continue to monitor for fever. Per hematology, is able to discharge when counts are stable without transfusions , fever resolves and pending ID recommendations Continue to monitor LE erythema Continue antibiotics per ID recommendations ID is following their recommendations are appreciated Hematology is following, their recommendations are appreciated Continue lasix Continue pain control with percocet Continue to trend daily labs PT/OT eval and treat Problems: Comment Review of Relevant I have reviewed the following items ketty (where applicable) has been applied. Labs Laboratory Tests Test 11/25/16 11:50 11/26/16 05:07 11/26/16 16:50 11/27/16 04:50 Influenza Type A Antigen Negative (NEGATIVE) Influenza Type B Antigen Negative (NEGATIVE) White Blood Count 4.9x10^3/uL (4.0-11.0) 16.0x10^3/uL (4.0-11.0) Red Blood Count 2.77x10^6/uL (3.50-5.40) 2.76x10^6/uL (3.50-5.40) Hemoglobin 8.7g/dL (12.0-15.5) 9.0g/dL (12.0-15.5) 8.6g/dL (12.0-15.5) Hematocrit 26.6% (36.0-47.0) 27.5% (36.0-47.0) 25.8% (36.0-47.0) Mean Corpuscular Volume 96fL (79-100) 94fL (79-100) Mean Corpuscular Hemoglobin 32pg (25-35) 31pg (25-35) Mean Corpuscular Hemoglobin Concent 33g/dL (31-37) 33g/dL (31-37) Red Cell Distribution Width 18.5% (11.5-14.5) 19.7% (11.5-14.5) Platelet Count 40x10^3/uL (140-400) 36x10^3/uL (140-400) 33x10^3/uL (140-400) Neutrophils (%) (Auto) 87% (31-73) 92% (31-73) Lymphocytes (%) (Auto) 8% (24-48) 4% (24-48) Monocytes (%) (Auto) 5% (0-9) 5% (0-9) Eosinophils (%) (Auto) 0% (0-3) 0% (0-3) Basophils (%) (Auto) 0% (0-3) 0% (0-3) Neutrophils # (Auto) 4.3x10^3uL (1.8-7.7) 14.7x10^3uL (1.8-7.7) Lymphocytes # (Auto) 0.4x10^3/uL (1.0-4.8) 0.6x10^3/uL (1.0-4.8) Monocytes # (Auto) 0.2x10^3/uL (0.0-1.1) 0.8x10^3/uL (0.0-1.1) Eosinophils # (Auto) 0.0x10^3/uL (0.0-0.7) 0.0x10^3/uL (0.0-0.7) Basophils # (Auto) 0.0x10^3/uL (0.0-0.2) 0.0x10^3/uL (0.0-0.2) Segmented Neutrophils % 82% (35-66) 85% (35-66) Band Neutrophils % 7% (0-9) 10% (0-9) Lymphocytes % 6% (24-48) 1% (24-48) Monocytes % 5% (0-10) 3% (0-10) Platelet Estimate Adequate (ADEQUATE) Decreased (ADEQUATE) Anisocytosis Slight Present Sodium Level 142mmol/L (136-145) 143mmol/L (136-145) Potassium Level 3.5mmol/L (3.5-5.1) 2.9mmol/L (3.5-5.1) Chloride Level 107mmol/L (98-107) 107mmol/L (98-107) Carbon Dioxide Level 24mmol/L (21-32) 24mmol/L (21-32) Anion Gap 11 (6-14) 12 (6-14) Blood Urea Nitrogen 16mg/dL (7-20) 18mg/dL (7-20) Creatinine 1.0mg/dL (0.6-1.0) 1.1mg/dL (0.6-1.0) Estimated GFR (Cockcroft-Gault) 55.3 49.5 Glucose Level 91mg/dL (70-99) 89mg/dL (70-99) Calcium Level 8.2mg/dL (8.5-10.1) 8.2mg/dL (8.5-10.1) Atypical Lymphocytes % (Manual) 1% (0-0) Polychromasia Present Microcytosis Present Macrocytosis Present Laboratory Tests Test 11/26/16 16:50 11/27/16 04:50 Hemoglobin 9.0g/dL (12.0-15.5) 8.6g/dL (12.0-15.5) Hematocrit 27.5% (36.0-47.0) 25.8% (36.0-47.0) Platelet Count 36x10^3/uL (140-400) 33x10^3/uL (140-400) White Blood Count 16.0x10^3/uL (4.0-11.0) Red Blood Count 2.76x10^6/uL (3.50-5.40) Mean Corpuscular Volume 94fL (79-100) Mean Corpuscular Hemoglobin 31pg (25-35) Mean Corpuscular Hemoglobin Concent 33g/dL (31-37) Red Cell Distribution Width 19.7% (11.5-14.5) Neutrophils (%) (Auto) 92% (31-73) Lymphocytes (%) (Auto) 4% (24-48) Monocytes (%) (Auto) 5% (0-9) Eosinophils (%) (Auto) 0% (0-3) Basophils (%) (Auto) 0% (0-3) Neutrophils # (Auto) 14.7x10^3uL (1.8-7.7) Lymphocytes # (Auto) 0.6x10^3/uL (1.0-4.8) Monocytes # (Auto) 0.8x10^3/uL (0.0-1.1) Eosinophils # (Auto) 0.0x10^3/uL (0.0-0.7) Basophils # (Auto) 0.0x10^3/uL (0.0-0.2) Segmented Neutrophils % 85% (35-66) Band Neutrophils % 10% (0-9) Lymphocytes % 1% (24-48) Atypical Lymphocytes % (Manual) 1% (0-0) Monocytes % 3% (0-10) Platelet Estimate Decreased (ADEQUATE) Polychromasia Present Anisocytosis Present Microcytosis Present Macrocytosis Present Sodium Level 143mmol/L (136-145) Potassium Level 2.9mmol/L (3.5-5.1) Chloride Level 107mmol/L (98-107) Carbon Dioxide Level 24mmol/L (21-32) Anion Gap 12 (6-14) Blood Urea Nitrogen 18mg/dL (7-20) Creatinine 1.1mg/dL (0.6-1.0) Estimated GFR (Cockcroft-Gault) 49.5 Glucose Level 89mg/dL (70-99) Calcium Level 8.2mg/dL (8.5-10.1) Microbiology 11/22/16 Blood Culture - Preliminary, Resulted NO GROWTH AFTER 4 DAYS Medications Current Medications Vancomycin HCl (Vanco Per Pharmacy) 1 each PRN DAILY PRN MC SEE COMMENTS Last administered on 11/24/16 18:13; Start 11/22/16 at 18:30; Stop 11/25/16 at 09:56 ; Status DC Fentanyl Citrate 50 mcg 50 mcg PRN Q15MIN PRN IV PAIN GREATER THAN 3/10 Last administered on 11/23/16 08:42; Start 11/22/16 at 18:30; Stop 11/23/16 at 18:29 ; Status DC Sodium Chloride 1,000 ml @ 100 mls/hr Q10H IV Last administered on 11/22/16 18:40; Start 11/22/16 at 18:16; Stop 11/23/16 at 04:15; Status DC Vancomycin HCl 2 gm/Sodium Chloride 500 ml @ 250 mls/hr 1X ONCE IV Last administered on 11/22/16 18:40; Start 11/22/16 at 19:00; Stop 11/22/16 at 20:59 ; Status DC Vancomycin HCl/ Sodium Chloride (Iv Sodium Chloride 0.9% 250ml) 250 ml @ 167 mls/hr Q24H IV Last administered on 11/23/16 18:18; Start 11/23/16 at 18:00; Stop 11/24/16 at 18:06; Status DC Vancomycin HCl 1 each 1X ONCE MC Last administered on 11/24/16 17:30; Start 11/24/16 at 17:30; Stop 11/24/16 at 17:31; Status DC Ondansetron HCl (Zofran) 4 mg PRN Q8HRS PRN IV NAUSEA/VOMITING; Start 11/22/16 at 20:00; Stop 11/23/16 at 19:59; Status DC Fentanyl Citrate (Fentanyl 2ml Vial) 50 mcg PRN Q2HR PRN IV PAIN; Start at 20:00; Stop 11/23/16 at 19:59; Status DC Acetaminophen (Tylenol) 650 mg PRN Q4HRS PRN PO FEVER Last administered on 11/23 09:43; Start 11/22/16 at 20:00; Stop 11/23/16 at 19:59; Status DC Guaifenesin (Robitussin Dm) 10 ml PRN Q4HRS PRN PO COUGH Last administered on 03:34; Start 11/23/16 at 02:30 Cyanocobalamin (Vitamin B-12) 1,000 mcg QMONTH IM ; Start 11/24/16 at 09:00 Gabapentin (Neurontin) 300 mg TID PO Last administered on 11/26/16 21:07; Start 11/23/16 at 14:00 Lisinopril (Prinivil) 10 mg DAILY PO Last administered on 11/26/16 08:33; Start 11/24/16 at 09:00 Oxycodone/ Acetaminophen (Percocet 5/325) 1 tab QIDPRN PRN PO MOD TO SEV; Start 11/23/16 at 11:30 Trimethoprim/ Sulfamethoxazole (Bactrim Ss) 1 tab BID PO ; Start 11/23/16 at 21: 00; Status UNV Cetirizine HCl (Zyrtec) 10 mg PRN DAILY PRN PO ALLERGIES; Start 11/24/16 at 09: 00 Pantoprazole Sodium (Protonix) 40 mg DAILYAC PO Last administered on 11/26/16 06:22; Start 11/23/16 at 12:00 Oxycodone/ Acetaminophen (Percocet 5/325) 2 tab QIDPRN PRN PO MOD TO SEV Last administered on 11/26/16 21:12; Start 11/23/16 at 11:30 Furosemide (Lasix) 20 mg DAILY IVP Last administered on 11/26/16 08:33; Start 11/23/16 at 12:00 Acetaminophen (Tylenol) 650 mg PRN Q6HRS PRN PO MILD PAIN / TEMP Last administered on 11/25/16 02:11; Start 11/24/16 at 13:30 Piperacillin Sod/ Tazobactam Sod 1 each 1 each PRN DAILY PRN MC SEE COMMENTS; Start 11/24/16 at 17:30 Piperacillin Sod/ Tazobactam Sod 3.375 gm/Sodium Chloride 50 ml @ 100 mls/hr Q6HRS IV Last administered on 11/27/16 06:00; Start 11/24/16 at 18:00 Vancomycin HCl/ Sodium Chloride (Iv Sodium Chloride 0.9% 500ml Bag) 500 ml @ 250 mls/hr Q24H IV Last administered on 11/24/16 18:48; Start 11/24/16 at 18: 30; Stop 11/25/16 at 09:56; Status DC Tbo-Filgrastim (Granix) 480 mcg QHS SQ Last administered on 11/25/16 21:12; Start 11/25/16 at 21:00; Stop 11/26/16 at 08:58; Status DC Doxycycline Hyclate (Vibra-Tab) 100 mg BID PO Last administered on 11/26/16 21 :07; Start 11/25/16 at 10:00 Linezolid (Zyvox) 600 mg BID PO Last administered on 11/26/16 21:07; Start at 21:00 Potassium Chloride (Klor-Con) 40 meq 1X ONCE PO Last administered on 11:17; Start 11/25/16 at 10:15; Stop 11/25/16 at 10:16; Status DC Acetaminophen (Tylenol) 650 mg 1X ONCE PO Last administered on 11/25/16 12:02 ; Start 11/25/16 at 12:00; Stop 11/25/16 at 12:01; Status DC Diphenhydramine HCl 25 mg 25 mg 1X ONCE PO Last administered on 11/25/16 12: 02; Start 11/25/16 at 12:00; Stop 11/25/16 at 12:01; Status DC Micafungin Sodium/ Dextrose (Mycamine) 100 ml @ 100 mls/hr Q24H IV Last administered on 11/26/16 23:00; Start 11/25/16 at 23:00 Oxymetazoline HCl 2 spray 2 spray BID NS Last administered on 11/26/16 21:07; Start 11/26/16 at 11:00 Potassium Chloride (KCl Premix 20meq) 50 ml @ 50 mls/hr 1X ONCE IV ; Start at 06:15; Stop 11/27/16 at 07:14; Status UNV Potassium Chloride 40 meq 40 meq 1X ONCE PO ; Start 11/27/16 at 06:30; Stop at 06:31; Status DC Potassium Chloride (KCl Premix 10meq) 100 ml @ 100 mls/hr Q1H IV Last administered on 11/27/16t 07:10; Start 11/27/16 at 07:00; Stop 11/27/16 at 08:59 ; Status DC Active Scripts Active Reported Claritin (Loratadine) 10 Mg Tablet 1 Tab PO DAILY PRN Bactrim 400-80 Mg Tablet (Sulfamethoxazole/Trimethoprim) 1 Each Tablet 1 Tab PO BID Gabapentin 300 Mg Capsule 300 Mg PO TID Zestril (Lisinopril) 10 Mg Tablet 10 Mg PO DAILY Cyanocobalamin Injection (Cyanocobalamin (Vitamin B-12)) 1,000 Mcg/1 Ml Vial 1, 000 Mcg QMONTH Percocet 5-325 Mg Tablet (Oxycodone/Acetaminophen) 1 Each Tablet 1-2 Tab PO Q4- 6HRS Prilosec Otc (Omeprazole Magnesium) 20 Mg Tablet.dr 20 Mg PO DAILY Vitals/I & O Vital Sign - Last 24 Hours 11/26/16 11/26/16 11/26/16 11/26/16 10:46 15:03 19:30 20:00 Temp 100.2 100.6 100.6 100.2 100.6 100.6 Pulse 83 71 77 Resp 18 B/P 141/68 123/51 122/62 Pulse Ox 92 93 92 O2 Delivery Room Air Room Air Room Air Room Air O2 Flow Rate 2.0 11/26/16 11/26/16 11/27/16 11/27/16 22:15 23:53 03:15 07:00 Temp 98.6 97.7 97.9 98.6 97.7 97.9 Pulse 70 61 61 Resp 16 B/P 113/48 112/51 129/53 Pulse Ox 91 94 94 O2 Delivery Room Air Room Air Room Air Room Air Intake and Output 11/26/16 11/26/16 11/27/16 15:00 23:00 07:00 Intake Total 410 ml 690 ml 850 ml Output Total 0 ml Balance 410 ml 690 ml 850 ml MARY HOPSONL K III DO Nov 27, 2016 09:07
[2016-11-27] MEDS: PANTOPRAZOLE 40 MG TABLET. PO SCH (09:47)
[2016-11-27] MEDS: LINEZOLID 600 MG TABLET PO SCH (09:47)
[2016-11-27] MEDS: DOXYCYCLINE HYCLATE 100 MG TABLET PO SCH (09:48)
[2016-11-27] MEDS: LISINOPRIL 10 MG TABLET PO SCH (09:48)
[2016-11-27] MEDS: FUROSEMIDE 20 MG/2 ML VIAL IVP SCH (09:48)
[2016-11-27] MEDS: GABAPENTIN 300 MG CAPSULE. PO SCH ×3 (09:48→21:20)
[2016-11-27] MEDS: OXYMETAZOLINE 0.05% NASAL SPRAY 30ML BOTTLE. NS SCH (09:49)
--- NOTE | 2016-11-27 10:52 | PDOC ---
Provider Note Provider Note [id number] cough abnl cxr pneumonia allergic rhinitis see orders. DU LONDONO MD Nov 27, 2016 10:52
[2016-11-27 11:00] VITALS: BP 140/63
--- NOTE | 2016-11-27 12:02 | PDOC ---
Infectious Disease Note Subjective Subjective Leg redness and pain, better Now productive cough, mild SCHROEDER off and on. Denies chest pain or SOA. SpO2 94% on RA + loose stools and some mild nausea earlier Low-grade temp 100.6 last night ROS ROS GEN: Denies chills, sweats HEENT: Denies sore throat NEURO: Denies confusion, dizziness Vital Sign Vital Signs Vital Signs Date Time Temp Pulse Resp B/P Pulse Ox O2 Delivery O2 Flow Rate FiO2 11/27/16 11:00 98.2 63 16 140/63 94 Room Air 98.2 11/26/16 20:00 2.0 Physical Exam PHYSICAL EXAM GENERAL: Alert, up in the chair, legs elevated, NAD HEENT: OC/OP pink NECK: Supple, no JVD, no LN LUNGS: + crackles. nonlabored HEART: S1S2, no gallop, no murmur ABD: Soft, NT EXT: BLE trace edema. Faint erythema RLE. 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 Labs Lab Laboratory Tests Test 11/26/16 16:50 11/27/16 04:50 Hemoglobin 9.0g/dL (12.0-15.5) 8.6g/dL (12.0-15.5) Hematocrit 27.5% (36.0-47.0) 25.8% (36.0-47.0) Platelet Count 36x10^3/uL (140-400) 33x10^3/uL (140-400) White Blood Count 16.0x10^3/uL (4.0-11.0) Red Blood Count 2.76x10^6/uL (3.50-5.40) Mean Corpuscular Volume 94fL (79-100) Mean Corpuscular Hemoglobin 31pg (25-35) Mean Corpuscular Hemoglobin Concent 33g/dL (31-37) Red Cell Distribution Width 19.7% (11.5-14.5) Neutrophils (%) (Auto) 92% (31-73) Lymphocytes (%) (Auto) 4% (24-48) Monocytes (%) (Auto) 5% (0-9) Eosinophils (%) (Auto) 0% (0-3) Basophils (%) (Auto) 0% (0-3) Neutrophils # (Auto) 14.7x10^3uL (1.8-7.7) Lymphocytes # (Auto) 0.6x10^3/uL (1.0-4.8) Monocytes # (Auto) 0.8x10^3/uL (0.0-1.1) Eosinophils # (Auto) 0.0x10^3/uL (0.0-0.7) Basophils # (Auto) 0.0x10^3/uL (0.0-0.2) Segmented Neutrophils % 85% (35-66) Band Neutrophils % 10% (0-9) Lymphocytes % 1% (24-48) Atypical Lymphocytes % (Manual) 1% (0-0) Monocytes % 3% (0-10) Platelet Estimate Decreased (ADEQUATE) Polychromasia Present Anisocytosis Present Microcytosis Present Macrocytosis Present Sodium Level 143mmol/L (136-145) Potassium Level 2.9mmol/L (3.5-5.1) Chloride Level 107mmol/L (98-107) Carbon Dioxide Level 24mmol/L (21-32) Anion Gap 12 (6-14) Blood Urea Nitrogen 18mg/dL (7-20) Creatinine 1.1mg/dL (0.6-1.0) Estimated GFR (Cockcroft-Gault) 49.5 Glucose Level 89mg/dL (70-99) Calcium Level 8.2mg/dL (8.5-10.1) Chest, 2 views, 11/26/2016: History: Cough, cellulitis No previous chest radiographs are available at this time for comparison purposes. A right Port-A-Cath extends into the superior vena cava. The heart is within normal limits in size. There are mild right parahilar and left basilar infiltrates. There is no evidence of pleural fluid. Mild degenerative changes are evident in the spine. IMPRESSION: 1. A right Port-A-Cath extends into the superior vena cava. 2. Mild right parahilar and left basilar infiltrates suggesting pneumonia. Pulmonary edema is less likely. Micro BLOOD CULTURE Preliminary NO GROWTH AFTER 4 DAYS Objective Assessment Bilateral LE cellulitis R > L better Fever - ? ID vs med +/- Transfusion. Flu screen - neg. Clinically she looks better Immunosuppression - Granix 11/25 Stage 4 Cholangiocarcinoma s/p chemo abnormal CXR, pneumonia Plan Plan of Care Zyvox, Zosyn, doxy, micafungin F/u labs and cults/sputum Elevation of LE Attending Co-Sign The patient was seen and interviewed as well as examined at the bedside. The chart was reviewed. The case was discussed. Agree with the plan of care. scale down antibiotics check bnp d/w THU POLK APRN Nov 27, 2016 12:02 ADEEL VINCENT MD Nov 27, 2016 13:40
[2016-11-27] MEDS: FLUTICASONE 50MCG/NASAL SPRAY 16GM BOTTLE. NS SCH (12:30)
[2016-11-27] MEDS: IPRATRPIUM/ALBUTEROL 0.5/2.5MG 3 ML NEBU. NEB SCH ×3 (12:54→20:27)
--- NOTE | 2016-11-27 13:02 | CONS ---
DATE OF CONSULTATION: 11/27/2016 I was asked to see this 66-year-old lady for cough, abnormal chest x-ray, pneumonia. HISTORY OF PRESENT ILLNESS: She is a lifetime nonsmoker. She has cholangiocarcinoma which she had surgery in 2014 and had recurrence of her disease, now is on chemotherapy. She was admitted with lower extremity edema, has been getting antibiotics for cellulitis. Her lower extremity venous Doppler did not show DVT. She has had cough for the past few days with clear to yellow sputum production. Her chest x-ray did show right perihilar left basilar infiltrate. She did have fever and antifungal treatment was started yesterday by ID. Currently she is on micafungin, ____, and Zyvox. She has nasal congestion and ____. She coughs that causes her to have vomiting. PAST MEDICAL HISTORY: Cholangiocarcinoma as mentioned above, cellulitis, immunocompramise. SOCIAL HISTORY: She is a lifetime nonsmoker. ALLERGIES: No known drug allergies. FAMILY HISTORY: There is no history of lung disease. MEDICATIONS: She is on ____, micafungin, Zyvox, doxycycline, Zosyn, lisinopril, ____, vitamin B12, Neurontin, Lasix, Protonix. REVIEW OF SYSTEMS: As mentioned as above. Other systems are otherwise negative. PHYSICAL EXAMINATION: GENERAL: Well developed lady, chronically ill-appearing. VITAL SIGNS: Her O2 saturation is 94%, blood pressure 129/53, temperature 97.9, heart rate 61, respiratory rate 16. HEENT: Normocephalic, atraumatic. Pupils equals, round, reactive to light, Throat is clear. Nose there is no inflamed mucosa. NECK: There is no JVD, neck adenopathy or thyromegaly. CARDIOVASCULAR: Regular rate and rhythm. PMI is nondisplaced. Inspection is normal. LUNGS: There are bibasilar crackles and expiratory wheezing with forced exhalation. ABDOMEN: Soft, bowel sounds are good. There is no mass. EXTREMITIES: There is 2-3+ lower extremity edema. There is lower extremity redness. NEUROLOGIC: Alert and 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. LYMPHATICS: There is no lymphadenopathy. LABORATORY DATA: Chest x-ray showed right perihilar left basilar infiltrate. WBC is ____, hemoglobin 8.6, platelets 33. Sodium 143, potassium 2.9, chloride 107, CO2 of 24, BUN 18, creatinine 1.9, glucose 89. Negative for influenza A and B. IMPRESSION: 1. Cough. 2. Abnormal chest x-ray. 3. Pulmonary infiltrates/pneumonia. 4. Allergic rhinitis. 5. Cholangiocarcinoma. 6. Hypertension. 7. Immunocompromise. 8. Lower extremity cellulitis. 9. Wheezing. PLAN AND RECOMMENDATION: 1. ____ oxygen saturation 92%. 2. Start bronchodilator. 3. Stop Afrin. I will start her on Flonase. 4. Add Singulair. 5. Continue antibiotic per ID. 6. Protonix for stress ulcer prophylaxis. 7. Monitor respiratory status very closely. 8. Sputum culture. 9. The findings are recommendations were discussed with the patient and . They understood and ____. Thank you very much for allowing me to participate in the care of this very nice lady. ANTONI HOLBROOK MD DR: BARRIE/bonnie JOB#: [id number] / [id number]
[2016-11-27 15:00] VITALS: BP 126/60
[2016-11-27 19:00] VITALS: BP 114/52
[2016-11-27] MEDS ORDERED: MONTELUKAST SODIUM 10 MG TABLET. PO SCH (21:00)
[2016-11-27] MEDS: OXYCODONE/APAP 5/325 TABLET. PO PRN (21:20)
[2016-11-27 23:00] VITALS: BP 109/44
[2016-11-28] MEDS: PIPERACILLIN/TAZOBACTAM 3.375 GM in IV NORMAL SALINE 50ML 50 ML IV SCH ×2 (05:34→12:36)
[2016-11-28 05:37] LABS: BASO % 0 % (0-3); EOS % 0 % (0-3); HEMATOCRIT 24.8 % (36.0-47.0); HEMOGLOBIN 8.3 g/dL (12.0-15.5); LYMPH # 0.9 x10^3/uL (1.0-4.8); LYMPH % 7 % (24-48); MEAN CORPUSCULAR HEMOGLOBIN 32 pg (25-35); MEAN CORPUSCULAR HGB CONC 33 g/dL (31-37); MEAN CORPUSCULAR VOLUME 95 fL (79-100); MONO % 8 % (0-9); NEUT % 84 % (31-73); PLATELET COUNT 38 x10^3/uL (140-400); RED BLOOD COUNT 2.62 x10^6/uL (3.50-5.40); RED CELL DISTRIBUTION WIDTH 19.6 % (11.5-14.5)
[2016-11-28 05:49] LABS: CALCIUM 7.9 mg/dL (8.5-10.1); CREATININE 1.2 mg/dL (0.6-1.0); GFR 44.8; POTASSIUM 3.4 mmol/L (3.5-5.1)
[2016-11-28] MEDS: IPRATRPIUM/ALBUTEROL 0.5/2.5MG 3 ML NEBU. NEB SCH ×2 (06:10→11:45)
[2016-11-28 07:00] VITALS: BP 144/76
--- NOTE | 2016-11-28 08:10 | PDOC ---
PROGRESS NOTES Chief Complaint Chief Complaint A/P Cellulitis Resolved. Bilateral LE cellulitis R > L better Fever - ? ID vs med +/- Transfusion. Flu screen - neg. Clinically she looks better Immunosuppression - Granix 11/25 Stage 4 Cholangiocarcinoma s/p chemo Abnormal CXR, pneumonia Plan continue abx per ID, change to oral per ID, pt wants to go home no sob, labs improving, Potassium replaced. possible DC today if cleared by ID and pulmonology. History of Present Illness History of Present Illness no fever no chills. Vitals Vitals Vital Signs Date Time Temp Pulse Resp B/P Pulse Ox O2 Delivery O2 Flow Rate FiO2 11/28/16 06:11 Room Air 11/27/16 23:00 97.9 72 18 109/44 95 97.9 Physical Exam General: Alert, Oriented X3, Cooperative, No acute distress, Other (clinically does not look ill) Heart: Regular rate, No murmurs Lungs: Clear, Other (no wheezing, cough) Abdomen: Normal bowel sounds, Soft, No tenderness Extremities: Other (2+ edema RLE unchanged) Skin: Other (erythema resolved. ) Labs LABS Laboratory Tests Test 11/28/16 05:15 White Blood Count 13.0x10^3/uL (4.0-11.0) Red Blood Count 2.62x10^6/uL (3.50-5.40) Hemoglobin 8.3g/dL (12.0-15.5) Hematocrit 24.8% (36.0-47.0) Mean Corpuscular Volume 95fL (79-100) Mean Corpuscular Hemoglobin 32pg (25-35) Mean Corpuscular Hemoglobin Concent 33g/dL (31-37) Red Cell Distribution Width 19.6% (11.5-14.5) Platelet Count 38x10^3/uL (140-400) Neutrophils (%) (Auto) 84% (31-73) Lymphocytes (%) (Auto) 7% (24-48) Monocytes (%) (Auto) 8% (0-9) Eosinophils (%) (Auto) 0% (0-3) Basophils (%) (Auto) 0% (0-3) Neutrophils # (Auto) 11.0x10^3uL (1.8-7.7) Lymphocytes # (Auto) 0.9x10^3/uL (1.0-4.8) Monocytes # (Auto) 1.1x10^3/uL (0.0-1.1) Eosinophils # (Auto) 0.0x10^3/uL (0.0-0.7) Basophils # (Auto) 0.0x10^3/uL (0.0-0.2) Sodium Level 148mmol/L (136-145) Potassium Level 3.4mmol/L (3.5-5.1) Chloride Level 111mmol/L (98-107) Carbon Dioxide Level 24mmol/L (21-32) Anion Gap 13 (6-14) Blood Urea Nitrogen 17mg/dL (7-20) Creatinine 1.2mg/dL (0.6-1.0) Estimated GFR (Cockcroft-Gault) 44.8 Glucose Level 83mg/dL (70-99) Calcium Level 7.9mg/dL (8.5-10.1) Assessment and Plan Assessmemt and Plan Problems Medical Problems: (1) Cellulitis Status: Acute Problems: Comment Review of Relevant I have reviewed the following items ketty (where applicable) has been applied. Labs Laboratory Tests Test 11/26/16 16:50 11/27/16 04:50 11/28/16 05:15 Hemoglobin 9.0g/dL (12.0-15.5) 8.6g/dL (12.0-15.5) 8.3g/dL (12.0-15.5) Hematocrit 27.5% (36.0-47.0) 25.8% (36.0-47.0) 24.8% (36.0-47.0) Platelet Count 36x10^3/uL (140-400) 33x10^3/uL (140-400) 38x10^3/uL (140-400) White Blood Count 16.0x10^3/uL (4.0-11.0) 13.0x10^3/uL (4.0-11.0) Red Blood Count 2.76x10^6/uL (3.50-5.40) 2.62x10^6/uL (3.50-5.40) Mean Corpuscular Volume 94fL (79-100) 95fL (79-100) Mean Corpuscular Hemoglobin 31pg (25-35) 32pg (25-35) Mean Corpuscular Hemoglobin Concent 33g/dL (31-37) 33g/dL (31-37) Red Cell Distribution Width 19.7% (11.5-14.5) 19.6% (11.5-14.5) Neutrophils (%) (Auto) 92% (31-73) 84% (31-73) Lymphocytes (%) (Auto) 4% (24-48) 7% (24-48) Monocytes (%) (Auto) 5% (0-9) 8% (0-9) Eosinophils (%) (Auto) 0% (0-3) 0% (0-3) Basophils (%) (Auto) 0% (0-3) 0% (0-3) Neutrophils # (Auto) 14.7x10^3uL (1.8-7.7) 11.0x10^3uL (1.8-7.7) Lymphocytes # (Auto) 0.6x10^3/uL (1.0-4.8) 0.9x10^3/uL (1.0-4.8) Monocytes # (Auto) 0.8x10^3/uL (0.0-1.1) 1.1x10^3/uL (0.0-1.1) Eosinophils # (Auto) 0.0x10^3/uL (0.0-0.7) 0.0x10^3/uL (0.0-0.7) Basophils # (Auto) 0.0x10^3/uL (0.0-0.2) 0.0x10^3/uL (0.0-0.2) Segmented Neutrophils % 85% (35-66) Band Neutrophils % 10% (0-9) Lymphocytes % 1% (24-48) Atypical Lymphocytes % (Manual) 1% (0-0) Monocytes % 3% (0-10) Platelet Estimate Decreased (ADEQUATE) Polychromasia Present Anisocytosis Present Microcytosis Present Macrocytosis Present Sodium Level 143mmol/L (136-145) 148mmol/L (136-145) Potassium Level 2.9mmol/L (3.5-5.1) 3.4mmol/L (3.5-5.1) Chloride Level 107mmol/L (98-107) 111mmol/L (98-107) Carbon Dioxide Level 24mmol/L (21-32) 24mmol/L (21-32) Anion Gap 12 (6-14) 13 (6-14) Blood Urea Nitrogen 18mg/dL (7-20) 17mg/dL (7-20) Creatinine 1.1mg/dL (0.6-1.0) 1.2mg/dL (0.6-1.0) Estimated GFR (Cockcroft-Gault) 49.5 44.8 Glucose Level 89mg/dL (70-99) 83mg/dL (70-99) Calcium Level 8.2mg/dL (8.5-10.1) 7.9mg/dL (8.5-10.1) TM-Iqi-Y-Type Natriuretic Peptide 203pg/mL (0-124) Laboratory Tests Test 11/28/16 05:15 White Blood Count 13.0x10^3/uL (4.0-11.0) Red Blood Count 2.62x10^6/uL (3.50-5.40) Hemoglobin 8.3g/dL (12.0-15.5) Hematocrit 24.8% (36.0-47.0) Mean Corpuscular Volume 95fL (79-100) Mean Corpuscular Hemoglobin 32pg (25-35) Mean Corpuscular Hemoglobin Concent 33g/dL (31-37) Red Cell Distribution Width 19.6% (11.5-14.5) Platelet Count 38x10^3/uL (140-400) Neutrophils (%) (Auto) 84% (31-73) Lymphocytes (%) (Auto) 7% (24-48) Monocytes (%) (Auto) 8% (0-9) Eosinophils (%) (Auto) 0% (0-3) Basophils (%) (Auto) 0% (0-3) Neutrophils # (Auto) 11.0x10^3uL (1.8-7.7) Lymphocytes # (Auto) 0.9x10^3/uL (1.0-4.8) Monocytes # (Auto) 1.1x10^3/uL (0.0-1.1) Eosinophils # (Auto) 0.0x10^3/uL (0.0-0.7) Basophils # (Auto) 0.0x10^3/uL (0.0-0.2) Sodium Level 148mmol/L (136-145) Potassium Level 3.4mmol/L (3.5-5.1) Chloride Level 111mmol/L (98-107) Carbon Dioxide Level 24mmol/L (21-32) Anion Gap 13 (6-14) Blood Urea Nitrogen 17mg/dL (7-20) Creatinine 1.2mg/dL (0.6-1.0) Estimated GFR (Cockcroft-Gault) 44.8 Glucose Level 83mg/dL (70-99) Calcium Level 7.9mg/dL (8.5-10.1) Microbiology 11/22/16 Blood Culture - Final, Complete NO GROWTH AFTER 5 DAYS Medications Current Medications Vancomycin HCl (Vanco Per Pharmacy) 1 each PRN DAILY PRN MC SEE COMMENTS Last administered on 11/24/16 18:13; Start 11/22/16 at 18:30; Stop 11/25/16 at 09:56 ; Status DC Fentanyl Citrate 50 mcg 50 mcg PRN Q15MIN PRN IV PAIN GREATER THAN 3/10 Last administered on 11/23/16 08:42; Start 11/22/16 at 18:30; Stop 11/23/16 at 18:29 ; Status DC Sodium Chloride 1,000 ml @ 100 mls/hr Q10H IV Last administered on 11/22/16 18:40; Start 11/22/16 at 18:16; Stop 11/23/16 at 04:15; Status DC Vancomycin HCl 2 gm/Sodium Chloride 500 ml @ 250 mls/hr 1X ONCE IV Last administered on 11/22/16 18:40; Start 11/22/16 at 19:00; Stop 11/22/16 at 20:59 ; Status DC Vancomycin HCl/ Sodium Chloride (Iv Sodium Chloride 0.9% 250ml) 250 ml @ 167 mls/hr Q24H IV Last administered on 11/23/16 18:18; Start 11/23/16 at 18:00; Stop 11/24/16 at 18:06; Status DC Vancomycin HCl 1 each 1X ONCE MC Last administered on 11/24/16 17:30; Start 11/24/16 at 17:30; Stop 11/24/16 at 17:31; Status DC Ondansetron HCl (Zofran) 4 mg PRN Q8HRS PRN IV NAUSEA/VOMITING; Start 11/22/16 at 20:00; Stop 11/23/16 at 19:59; Status DC Fentanyl Citrate (Fentanyl 2ml Vial) 50 mcg PRN Q2HR PRN IV PAIN; Start at 20:00; Stop 11/23/16 at 19:59; Status DC Acetaminophen (Tylenol) 650 mg PRN Q4HRS PRN PO FEVER Last administered on 11/23 09:43; Start 11/22/16 at 20:00; Stop 11/23/16 at 19:59; Status DC Guaifenesin (Robitussin Dm) 10 ml PRN Q4HRS PRN PO COUGH Last administered on 21:21; Start 11/23/16 at 02:30 Cyanocobalamin (Vitamin B-12) 1,000 mcg QMONTH IM ; Start 11/24/16 at 09:00 Gabapentin (Neurontin) 300 mg TID PO Last administered on 11/27/16 21:20; Start 11/23/16 at 14:00 Lisinopril (Prinivil) 10 mg DAILY PO Last administered on 11/27/16 09:48; Start 11/24/16 at 09:00 Oxycodone/ Acetaminophen (Percocet 5/325) 1 tab QIDPRN PRN PO MOD TO SEV; Start 11/23/16 at 11:30 Trimethoprim/ Sulfamethoxazole (Bactrim Ss) 1 tab BID PO ; Start 11/23/16 at 21: 00; Status UNV Cetirizine HCl (Zyrtec) 10 mg PRN DAILY PRN PO ALLERGIES; Start 11/24/16 at 09: 00 Pantoprazole Sodium (Protonix) 40 mg DAILYAC PO Last administered on 11/27/16 09:47; Start 11/23/16 at 12:00 Oxycodone/ Acetaminophen (Percocet 5/325) 2 tab QIDPRN PRN PO MOD TO SEV Last administered on 11/27/16 21:20; Start 11/23/16 at 11:30 Furosemide (Lasix) 20 mg DAILY IVP Last administered on 11/27/16 09:48; Start 11/23/16 at 12:00 Acetaminophen (Tylenol) 650 mg PRN Q6HRS PRN PO MILD PAIN / TEMP Last administered on 11/25/16 02:11; Start 11/24/16 at 13:30 Piperacillin Sod/ Tazobactam Sod 1 each 1 each PRN DAILY PRN MC SEE COMMENTS; Start 11/24/16 at 17:30; Stop 11/27/16 at 16:55; Status DC Piperacillin Sod/ Tazobactam Sod 3.375 gm/Sodium Chloride 50 ml @ 100 mls/hr Q6HRS IV Last administered on 11/28/16 05:34; Start 11/24/16 at 18:00 Vancomycin HCl/ Sodium Chloride (Iv Sodium Chloride 0.9% 500ml Bag) 500 ml @ 250 mls/hr Q24H IV Last administered on 11/24/16 18:48; Start 11/24/16 at 18: 30; Stop 11/25/16 at 09:56; Status DC Tbo-Filgrastim (Granix) 480 mcg QHS SQ Last administered on 11/25/16 21:12; Start 11/25/16 at 21:00; Stop 11/26/16 at 08:58; Status DC Doxycycline Hyclate (Vibra-Tab) 100 mg BID PO Last administered on 11/27/16 09 :48; Start 11/25/16 at 10:00; Stop 11/27/16 at 13:52; Status DC Linezolid (Zyvox) 600 mg BID PO Last administered on 11/27/16 09:47; Start at 21:00; Stop 11/27/16 at 13:52; Status DC Potassium Chloride (Klor-Con) 40 meq 1X ONCE PO Last administered on 11:17; Start 11/25/16 at 10:15; Stop 11/25/16 at 10:16; Status DC Acetaminophen (Tylenol) 650 mg 1X ONCE PO Last administered on 11/25/16 12:02 ; Start 11/25/16 at 12:00; Stop 11/25/16 at 12:01; Status DC Diphenhydramine HCl 25 mg 25 mg 1X ONCE PO Last administered on 11/25/16 12: 02; Start 11/25/16 at 12:00; Stop 11/25/16 at 12:01; Status DC Micafungin Sodium/ Dextrose (Mycamine) 100 ml @ 100 mls/hr Q24H IV Last administered on 11/26/16 23:00; Start 11/25/16 at 23:00; Stop 11/27/16 at 13:52 ; Status DC Oxymetazoline HCl 2 spray 2 spray BID NS Last administered on 11/27/16 09:49; Start 11/26/16 at 11:00; Stop 11/27/16 at 10:45; Status DC Potassium Chloride (KCl Premix 20meq) 50 ml @ 50 mls/hr 1X ONCE IV ; Start at 06:15; Stop 11/27/16 at 07:14; Status UNV Potassium Chloride 40 meq 40 meq 1X ONCE PO Last administered on 11/27/16 09: 47; Start 11/27/16 at 06:30; Stop 11/27/16 at 06:31; Status DC Potassium Chloride (KCl Premix 10meq) 100 ml @ 100 mls/hr Q1H IV Last administered on 11/27/16 10:03; Start 11/27/16 at 07:00; Stop 11/27/16 at 08:59 ; Status DC Potassium Chloride (Klor-Con) 40 meq 1X ONCE PO ; Start 11/27/16 at 09:15; Stop 11/27/16 at 09:16; Status DC Albuterol/ Ipratropium (Duoneb) 3 ml RTQID NEB Last administered on 11/28/16 06:10; Start 11/27/16 at 12:00 Montelukast Sodium (Singulair) 10 mg QHS PO Last administered on 11/27/16 21: 19; Start 11/27/16 at 21:00 Fluticasone Propionate (Flonase) 2 spray DAILY NS Last administered on 12:30; Start 11/27/16 at 11:00 Active Scripts Active Reported Claritin (Loratadine) 10 Mg Tablet 1 Tab PO DAILY PRN Bactrim 400-80 Mg Tablet (Sulfamethoxazole/Trimethoprim) 1 Each Tablet 1 Tab PO BID Gabapentin 300 Mg Capsule 300 Mg PO TID Zestril (Lisinopril) 10 Mg Tablet 10 Mg PO DAILY Cyanocobalamin Injection (Cyanocobalamin (Vitamin B-12)) 1,000 Mcg/1 Ml Vial 1, 000 Mcg QMONTH Percocet 5-325 Mg Tablet (Oxycodone/Acetaminophen) 1 Each Tablet 1-2 Tab PO Q4- 6HRS Prilosec Otc (Omeprazole Magnesium) 20 Mg Tablet.dr 20 Mg PO DAILY Vitals/I & O Vital Sign - Last 24 Hours 11/27/16 11/27/16 11/27/16 11/27/16 09:48 11:00 12:54 15:00 Temp 98.2 98.5 98.2 98.5 Pulse 61 63 71 Resp 16 16 B/P 129/53 140/63 126/60 Pulse Ox 94 96 94 O2 Delivery Room Air Room Air Room Air 11/27/16 11/27/16 11/27/16 11/27/16 16:01 19:00 20:00 20:28 Temp 98.7 98.7 Pulse 73 Resp 18 B/P 114/52 Pulse Ox 95 98 96 O2 Delivery Room Air Room Air Room Air Room Air 11/27/16 11/27/16 11/27/16 11/28/16 21:20 22:39 23:00 06:11 Temp 97.9 97.9 Pulse 72 Resp 20 18 18 B/P 109/44 Pulse Ox 95 O2 Delivery Room Air Room Air Room Air Room Air Intake and Output 11/27/16 11/27/16 11/28/16 15:00 23:00 07:00 Intake Total 180 ml 420 ml Output Total 0 ml Balance 180 ml 420 ml 0 ml YEISON MARQUEZ MD Nov 28, 2016 08:10
[2016-11-28] MEDS: LISINOPRIL 10 MG TABLET PO SCH (08:34)
[2016-11-28] MEDS: FUROSEMIDE 20 MG/2 ML VIAL IVP SCH (08:34)
[2016-11-28] MEDS: PANTOPRAZOLE 40 MG TABLET. PO SCH (08:34)
[2016-11-28] MEDS: GABAPENTIN 300 MG CAPSULE. PO SCH (08:34)
[2016-11-28] MEDS: FLUTICASONE 50MCG/NASAL SPRAY 16GM BOTTLE. NS SCH (08:34)
--- NOTE | 2016-11-28 09:04 | PDOC ---
PULMONARY PROGRESS NOTES Subjective no sob, has cough, small sputum better, nasal congestion is better. no pain Vitals Vital Signs Date Time Temp Pulse Resp B/P Pulse Ox O2 Delivery O2 Flow Rate FiO2 11/28/16 08:34 78 144/76 11/28/16 06:11 Room Air 11/27/16 23:00 97.9 18 95 97.9 Comments ros as mentioned as above other sys otherwise neg ROS: No Nausea, No Chest Pain, No Abdominal Pain General: Alert, Oriented X4 HEENT: Other (nc at perrl, throat clear. nose inflamed mucosa) Lungs: Crackles, Other (no wheezing, cough) Cardiovascular: S1, S2 Abdomen: Soft, Non-tender Neuro Exam: Alert, Oriented Extremities: Other (edema) Skin: Warm Labs Laboratory Tests Test 11/26/16 16:50 11/27/16 04:50 11/28/16 05:15 Hemoglobin 9.0g/dL (12.0-15.5) 8.6g/dL (12.0-15.5) 8.3g/dL (12.0-15.5) Hematocrit 27.5% (36.0-47.0) 25.8% (36.0-47.0) 24.8% (36.0-47.0) Platelet Count 36x10^3/uL (140-400) 33x10^3/uL (140-400) 38x10^3/uL (140-400) White Blood Count 16.0x10^3/uL (4.0-11.0) 13.0x10^3/uL (4.0-11.0) Red Blood Count 2.76x10^6/uL (3.50-5.40) 2.62x10^6/uL (3.50-5.40) Mean Corpuscular Volume 94fL (79-100) 95fL (79-100) Mean Corpuscular Hemoglobin 31pg (25-35) 32pg (25-35) Mean Corpuscular Hemoglobin Concent 33g/dL (31-37) 33g/dL (31-37) Red Cell Distribution Width 19.7% (11.5-14.5) 19.6% (11.5-14.5) Neutrophils (%) (Auto) 92% (31-73) 84% (31-73) Lymphocytes (%) (Auto) 4% (24-48) 7% (24-48) Monocytes (%) (Auto) 5% (0-9) 8% (0-9) Eosinophils (%) (Auto) 0% (0-3) 0% (0-3) Basophils (%) (Auto) 0% (0-3) 0% (0-3) Neutrophils # (Auto) 14.7x10^3uL (1.8-7.7) 11.0x10^3uL (1.8-7.7) Lymphocytes # (Auto) 0.6x10^3/uL (1.0-4.8) 0.9x10^3/uL (1.0-4.8) Monocytes # (Auto) 0.8x10^3/uL (0.0-1.1) 1.1x10^3/uL (0.0-1.1) Eosinophils # (Auto) 0.0x10^3/uL (0.0-0.7) 0.0x10^3/uL (0.0-0.7) Basophils # (Auto) 0.0x10^3/uL (0.0-0.2) 0.0x10^3/uL (0.0-0.2) Segmented Neutrophils % 85% (35-66) Band Neutrophils % 10% (0-9) Lymphocytes % 1% (24-48) Atypical Lymphocytes % (Manual) 1% (0-0) Monocytes % 3% (0-10) Platelet Estimate Decreased (ADEQUATE) Polychromasia Present Anisocytosis Present Microcytosis Present Macrocytosis Present Sodium Level 143mmol/L (136-145) 148mmol/L (136-145) Potassium Level 2.9mmol/L (3.5-5.1) 3.4mmol/L (3.5-5.1) Chloride Level 107mmol/L (98-107) 111mmol/L (98-107) Carbon Dioxide Level 24mmol/L (21-32) 24mmol/L (21-32) Anion Gap 12 (6-14) 13 (6-14) Blood Urea Nitrogen 18mg/dL (7-20) 17mg/dL (7-20) Creatinine 1.1mg/dL (0.6-1.0) 1.2mg/dL (0.6-1.0) Estimated GFR (Cockcroft-Gault) 49.5 44.8 Glucose Level 89mg/dL (70-99) 83mg/dL (70-99) Calcium Level 8.2mg/dL (8.5-10.1) 7.9mg/dL (8.5-10.1) WJ-Mml-X-Type Natriuretic Peptide 203pg/mL (0-124) Laboratory Tests Test 11/28/16 05:15 White Blood Count 13.0x10^3/uL (4.0-11.0) Red Blood Count 2.62x10^6/uL (3.50-5.40) Hemoglobin 8.3g/dL (12.0-15.5) Hematocrit 24.8% (36.0-47.0) Mean Corpuscular Volume 95fL (79-100) Mean Corpuscular Hemoglobin 32pg (25-35) Mean Corpuscular Hemoglobin Concent 33g/dL (31-37) Red Cell Distribution Width 19.6% (11.5-14.5) Platelet Count 38x10^3/uL (140-400) Neutrophils (%) (Auto) 84% (31-73) Lymphocytes (%) (Auto) 7% (24-48) Monocytes (%) (Auto) 8% (0-9) Eosinophils (%) (Auto) 0% (0-3) Basophils (%) (Auto) 0% (0-3) Neutrophils # (Auto) 11.0x10^3uL (1.8-7.7) Lymphocytes # (Auto) 0.9x10^3/uL (1.0-4.8) Monocytes # (Auto) 1.1x10^3/uL (0.0-1.1) Eosinophils # (Auto) 0.0x10^3/uL (0.0-0.7) Basophils # (Auto) 0.0x10^3/uL (0.0-0.2) Sodium Level 148mmol/L (136-145) Potassium Level 3.4mmol/L (3.5-5.1) Chloride Level 111mmol/L (98-107) Carbon Dioxide Level 24mmol/L (21-32) Anion Gap 13 (6-14) Blood Urea Nitrogen 17mg/dL (7-20) Creatinine 1.2mg/dL (0.6-1.0) Estimated GFR (Cockcroft-Gault) 44.8 Glucose Level 83mg/dL (70-99) Calcium Level 7.9mg/dL (8.5-10.1) Medications Active Scripts Medications Dose Route/Sig Days Date Category Claritin (Loratadine) 10 Mg Tablet 1 Tab PO DAILY PRN 11/22/16 Reported Bactrim 400-80 Mg Tablet (Sulfamethoxazole/Trimethoprim) 1 Each Tablet 1 Tab PO BID 11/22/16 Reported Gabapentin 300 Mg Capsule 300 Mg PO TID 11/22/16 Reported Zestril (Lisinopril) 10 Mg Tablet 10 Mg PO DAILY 11/22/16 Reported Cyanocobalamin Injection (Cyanocobalamin (Vitamin B-12)) 1,000 Mcg/1 Ml Vial 1,000 Mcg QMONTH 05/28/16 Reported Percocet 5-325 Mg Tablet (Oxycodone/Acetaminophen) 1 Each Tablet 1-2 Tab PO Q4-6HRS 05/28/16 Reported Prilosec Otc (Omeprazole Magnesium) 20 Mg Tablet.dr 20 Mg PO DAILY 05/28/16 Reported Comments cxr reviewed, 1. A right Port-A-Cath extends into the superior vena cava. 2. Mild right parahilar and left basilar infiltrates suggesting pneumonia. Pulmonary edema is less likely. DU LONDONO MD Nov 28, 2016 09:04
[2016-11-28 11:00] VITALS: BP 109/61
[2016-11-28] MEDS ORDERED: POTASSIUM CHLORIDE 20 MEQ TABLET.ER. PO ONE (11:00)
--- NOTE | 2016-11-28 12:24 | PDOC ---
Infectious Disease Note Subjective Subjective Hoping to go home today. Grand baby's birthday Leg redness and pain, better Less congestion No fever last 24 hours ROS ROS GEN: Denies fevers, chills, sweats HEENT: Denies blurred vision, sore throat CV: Denies chest pain RESP: Denies shortness of air, cough GI: Denies n/v/d NEURO: Denies confusion, dizziness MSK: Denies weakness, joint pain/swelling Vital Sign Vital Signs Vital Signs Date Time Temp Pulse Resp B/P Pulse Ox O2 Delivery O2 Flow Rate FiO2 11/28/16 11:46 Room Air 11/28/16 11:00 97.9 78 20 109/61 97 97.9 Physical Exam PHYSICAL EXAM GENERAL: Alert, up in the chair, legs elevated, NAD HEENT: OC/OP pink NECK: Supple, no JVD, no LN LUNGS: + crackles. nonlabored HEART: S1S2, no gallop, no murmur ABD: Soft, NT EXT: BLE trace edema. Faint erythema RLE. nontender [employer]URSING [employer] T[employer]OR: Alert, 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, no focal neurologic deficit SKIN: No rash Port-a-cath. Labs Lab Laboratory Tests Test 11/28/16 05:15 White Blood Count 13.0x10^3/uL (4.0-11.0) Red Blood Count 2.62x10^6/uL (3.50-5.40) Hemoglobin 8.3g/dL (12.0-15.5) Hematocrit 24.8% (36.0-47.0) Mean Corpuscular Volume 95fL (79-100) Mean Corpuscular Hemoglobin 32pg (25-35) Mean Corpuscular Hemoglobin Concent 33g/dL (31-37) Red Cell Distribution Width 19.6% (11.5-14.5) Platelet Count 38x10^3/uL (140-400) Neutrophils (%) (Auto) 84% (31-73) Lymphocytes (%) (Auto) 7% (24-48) Monocytes (%) (Auto) 8% (0-9) Eosinophils (%) (Auto) 0% (0-3) Basophils (%) (Auto) 0% (0-3) Neutrophils # (Auto) 11.0x10^3uL (1.8-7.7) Lymphocytes # (Auto) 0.9x10^3/uL (1.0-4.8) Monocytes # (Auto) 1.1x10^3/uL (0.0-1.1) Eosinophils # (Auto) 0.0x10^3/uL (0.0-0.7) Basophils # (Auto) 0.0x10^3/uL (0.0-0.2) Sodium Level 148mmol/L (136-145) Potassium Level 3.4mmol/L (3.5-5.1) Chloride Level 111mmol/L (98-107) Carbon Dioxide Level 24mmol/L (21-32) Anion Gap 13 (6-14) Blood Urea Nitrogen 17mg/dL (7-20) Creatinine 1.2mg/dL (0.6-1.0) Estimated GFR (Cockcroft-Gault) 44.8 Glucose Level 83mg/dL (70-99) Calcium Level 7.9mg/dL (8.5-10.1) Micro BLOOD CULTURE Preliminary NO GROWTH AFTER 5 DAYS Sputum GRAM STAIN Final WBCS NONE SEEN MIXED MERE FEW SQUAMOUS EPITHELIAL CELLS FEW Objective Assessment Bilateral LE cellulitis R > L better Fever - ? ID vs med +/- Transfusion. Flu screen - neg. Clinically she looks better Immunosuppression - Granix 3/16 Stage 4 Cholangiocarcinoma s/p chemo abnormal CXR, pneumonia Plan Plan of Care Zosyn, wean soon F/u labs /sputum cx Elevation of LE D/w Attending Co-Sign The patient was seen and interviewed as well as examined at the bedside. The chart was reviewed. The case was discussed. Agree with the plan of care. pt feeling good, wants to go home, d/w , change antibiotics to augmentin for d/c THU POLK APRN Nov 28, 2016 12:24 ADEEL VINCENT MD Nov 28, 2016 12:39
[2016-11-28 15:00] VITALS: BP 114/68
== END 2016-11-28 15:59 | disposition home or self-care (01) | DRG 871 ==
LOC: ER 16:48 → 5 SOUTH 18:29
PROVIDERS: ADMIT Internal Medicine; ATTEND Internal Medicine
PROC: 30233N1 Transfusion of Nonautologous Red Blood Cells into Peripheral Vein, Percutaneous Approach (ICD-10-PCS; principal; 2016-11-23)
DX: A41.9 Sepsis, unspecified organism (principal); D61.810 Antineoplastic chemotherapy induced pancytopenia; J18.9 Pneumonia, unspecified organism; L03.115 Cellulitis of right lower limb; L03.116 Cellulitis of left lower limb; C22.1 Intrahepatic bile duct carcinoma; C77.1 Secondary and unspecified malignant neoplasm of intrathoracic lymph nodes; D64.9 Anemia, unspecified; E87.6 Hypokalemia; I10 Essential (primary) hypertension; J30.9 Allergic rhinitis, unspecified; M19.90 Unspecified osteoarthritis, unspecified site; M54.9 Dorsalgia, unspecified; K21.9 Gastro-esophageal reflux disease without esophagitis; T45.1X5A Adverse effect of antineoplastic and immunosuppressive drugs, initial encounter; Z82.49 Family history of ischemic heart disease and other diseases of the circulatory system; Z85.3 Personal history of malignant neoplasm of breast; Z86.711 Personal history of pulmonary embolism; Z86.718 Personal history of other venous thrombosis and embolism; Z87.440 Personal history of urinary (tract) infections; Z90.710 Acquired absence of both cervix and uterus; Z92.3 Personal history of irradiation; Z98.84 Bariatric surgery status; Z85.05 Personal history of malignant neoplasm of liver; Z90.49 Acquired absence of other specified parts of digestive tract
CPT/HCPCS: 36415; 71020; 73590; 73610; 80048; 80202; 81001; 83880; 85007; 85014; 85018; 85027; 85049; 86850; 86870; 86900; 86901; 86922; 87040; 87070; 87205; 87804; 94250; 94640; 94760; 96374; J1442; J2248; J2543; J3010; J3370; J3480; J7030; J7040; J7050; J7620; P9016; Q0163; 99285-25

== ENCOUNTER 2016-12-27 07:58 | Inpatient (IN) | payer MEDICARE, OTHER ==
[~2016-12-27] VITALS: Ht 160 cm; Wt 115.8 kg
[2016-12-27] VITALS (12 sets, daily range): BP systolic 77–117; BP diastolic 32–73
[~2016-12-27 07:58] MED LIST changes: +GABA-586 PO; +LISI-377 PO; +SULF1TAB23 PO
[2016-12-27] MEDS ORDERED: FUROSEMIDE 20 MG/2 ML VIAL. IVP ONE (08:15)
[2016-12-27] MEDS ORDERED: diphenhydrAMINE HCL 25 MG CAPSULE PO ONE (08:15)
[2016-12-27] MEDS ORDERED: ACETAMINOPHEN 325 MG TABLET. PO ONE (08:15)
[2016-12-27 08:48] LABS: HEMOGLOBIN 7.6 g/dL (12.0-15.5)
--- NOTE | 2016-12-27 16:43 | PDOC1 ---
History and Physical Date of Admission Date of Admission DATE: 12/27/16 TIME: 16:41 Identification/Chief Complaint Chief Complaint weakness, rigors Problems: Source Source: Chart review, Patient History of Present Illness History of Present Illness pt presented to outpatient for sched. transfusion. Has recent treatment for Cholangio Ca. follows with Dr. Connell and at [facility]. She was very weak for 2 days, with a return of the prior leg swelling with some diffuse redness of both legs. She has new chills, feels very cold, and had difficulty talking due to her jaw shaking with chills when talking to me She was hospitalized a month ago, given IV abx for leg cellulitis, saw Dr. Thacker, and has since been hospitalized at [facility]. She is on Gemzar and Zeloda, this is her week off Zeloda and she is scheduled to start again tomorrow. Past Medical History Cardiovascular: No pertinent hx Pulmonary: No pertinent hx GI: GERD Heme/Onc: Cancer (Cholangio) Musculoskeletal: Other Infectious disease: No pertinent hx Renal/: No pertinent hx Family History Family History: No Significant Social History Smoke: No ALCOHOL: none Drugs: None Current Problem List Problem List Problems Medical Problems: (1) Cellulitis Status: Acute Problems: Current Medications Current Medications Current Medications Acetaminophen (Tylenol) 650 mg 1X ONCE PO Last administered on 12/27/16 09:11 ; Start 12/27/16 at 08:15; Stop 12/27/16 at 08:22; Status DC Diphenhydramine HCl (Benadryl) 25 mg 1X ONCE PO Last administered on 09:12; Start 12/27/16 at 08:15; Stop 12/27/16 at 08:22; Status DC Furosemide (Lasix) 20 mg 1X ONCE IVP ; Start 12/27/16 at 08:15; Stop 12/27/16 at 08:22; Status DC Meperidine HCl (Demerol) 25 mg QID PRN IV SHIVERING; Start 12/27/16 at 16:45; Stop 12/29/16 at 16:44; Status UNV Lisinopril (Prinivil) 10 mg DAILY PO ; Start 12/28/16 at 09:00; Status UNV Oxycodone/ Acetaminophen (Percocet 5/325) 1 for mild pain 2 for severe Q4HRS PRN PO pain; Start 12/27/16 at 16:45; Status UNV Non-Formulary Medication 300 mg TID PO ; Start 12/27/16 at 21:00; Status UNV Non-Formulary Medication 1 tab DAILY PRN PO ALLERGIES; Start 12/27/16 at 16:45 ; Status UNV Non-Formulary Medication 20 mg DAILY PO ; Start 12/28/16 at 09:00; Status UNV Active Scripts Active Reported Claritin (Loratadine) 10 Mg Tablet 1 Tab PO DAILY PRN Bactrim 400-80 Mg Tablet (Sulfamethoxazole/Trimethoprim) 1 Each Tablet 1 Tab PO BID Gabapentin 300 Mg Capsule 300 Mg PO TID Zestril (Lisinopril) 10 Mg Tablet 10 Mg PO DAILY Cyanocobalamin Injection (Cyanocobalamin (Vitamin B-12)) 1,000 Mcg/1 Ml Vial 1, 000 Mcg QMONTH Percocet 5-325 Mg Tablet (Oxycodone/Acetaminophen) 1 Each Tablet 1-2 Tab PO Q4- 6HRS Prilosec Otc (Omeprazole Magnesium) 20 Mg Tablet.dr 20 Mg PO DAILY Allergies Allergies: Coded Allergies: No Known Drug Allergies (Unverified , 12/27/16) ROS General: YES: Appetite, Chills, Fatigue, Malaise, No: Night Sweats, Other PSYCHOLOGICAL ROS: YES: Sleep disturbances, No: Anxiety, Behavioral Disorder, Concentration difficultie, Decreased libido , Depression, Disorientation, Hallucinations, Hostility, Irritablity, Memory difficulties, Mood Swings, Obsessive thoughts, Physical abuse Eyes: No Blurry vision, No Decreased vision, No Double vision, No Dry eyes, No Excessive tearing, No Eye Pain, No Itchy Eyes, No Loss of vision, No Other, No Photophobia, No Scotomata, No Uses contacts, No Uses glasses HEENT: No: Epistaxis, Heacaches, Hearing change, Nasal congestion, Nasal discharge, Oral lesions, Other, Sinus pain, Sneezing, Snoring, Sore Throat, Tinnitus, Vertigo, Visual Changes, Vocal changes Respiratory: No: Cough, Hemoptysis, Orthopnea, Other, Pleuritic Pain, SOB with excertion, Shortness of breath, Sputum Changes, Stridor, Tachypnea, Wheezing Cardiovascular: No Chest Pain, No Edema, No Lt Headedness, No Orthopnea, No Other, No Palpitations, No Paroxysmal Noc. Dyspnea Gastrointestinal: Yes Nausea, No Abdominal Pain, No Constipation, No Diarrhea, No Hematochezia, No Melena, No Other, No Vomiting Genitourinary: No , No , No , No , No , No , No , No Discharge, No Dysuria, No Flank Pain, No Frequency, No Hematuria, No Incontinence, No Other, No Pain, No Retention, No Urgency Musculoskeletal: Yes Joint Pain, Yes Joint Swelling, Yes Muscle Pain, Yes Muscular Weakness, No Gait Disturbance, No Joint Stiffness, No Other, No Pain In:, No Swelling In: Neurological: No Behavorial Changes, No Bowel/Bladder ControlChng, No Confusion , No Dizziness, No Gait Disturbance, No Headaches, No Impaired Coord/balance, No Memory Loss, No Numbness/Tingling, No Other, No Seizures, No Speech Problems , No Tremors, No Visual Changes, No Weakness Skin: No Acne, No Dry Skin, No Eczema, No Hair Changes, No Lumps, No Mole Changes, No Mottling, No Nail Changes, No Other, No Pruritus, No Rash, No Skin Lesion Changes Physical Exam General: Alert, Oriented X3, Cooperative HEENT: Atraumatic, PERRLA Lungs: Clear to auscultation, Normal air movement Heart: S1S2, no murmurs Abdomen: Normal bowel sounds, Soft, No tenderness Rectal Exam: not examined Extremities: No clubbing, Other (3+ BLE edema, diffuse edema to knees and thighs) Skin: Other (diffuse erythema of both legs, not beefy, but warm and tender) Neuro: Normal gait, Normal speech, Sensation intact Psych/Mental Status: Mental status NL, Mood NL Vitals Vitals Vital Signs Date Time Temp Pulse Resp B/P Pulse Ox O2 Delivery O2 Flow Rate FiO2 12/27/16 16:00 98.1 69 20 112/73 98.1 12/27/16 08:50 97 Labs Labs Laboratory Tests Test 12/27/16 08:39 Hemoglobin 7.6g/dL (12.0-15.5) Hematocrit 24.0% (36.0-47.0) Mean Corpuscular Hemoglobin Concent 32g/dL (31-37) Laboratory Tests Test 12/27/16 08:39 Hemoglobin 7.6g/dL (12.0-15.5) Hematocrit 24.0% (36.0-47.0) Mean Corpuscular Hemoglobin Concent 32g/dL (31-37) VTE Prophylaxis Ordered VTE Prophylaxis Devices: Contraindicated VTE Pharmacological Prophylaxi: Yes Assessment/Plan Assessment/Plan chills rigors, weakness w/u fever, check CXR, UA, blood cx, CBC consult ID superficial phlebitis BLE, diffuse, no clear cellulitis Acute renal failure, hyperkalemia, hold RICO-i consult renal IV fluid, urine lytes, renal US gap metabolic acidosis, uremia check chem 12, suspect nutritional deficiency, hypokalemia GERD peripheral neuropathy admit SERGEY KNOWLES MD Dec 27, 2016 16:43
[2016-12-27] MEDS ORDERED: fentaNYL PF VIAL 100 MCG/2 ML VIAL IV PRN (16:45)
[2016-12-27] MEDS: oxyCODONE/APAP 5/325 1 TAB TABLET PO PRN (17:23)
[2016-12-27] MEDS ORDERED: VANCOMYCIN PER PHARMACY MC PRN (17:30)
[2016-12-27] MEDS ORDERED: PIP/TAZO PER PHARMACY MC PRN (17:30)
[2016-12-27] MEDS ORDERED: VANCOMYCIN 2 GM in IV NORMAL SALINE 500ML BAG 500 ML IV ONE (17:45)
[2016-12-27] MEDS ORDERED: PIPERACILLIN/TAZOBACTAM 3.375 GM in IV NORMAL SALINE 50ML 50 ML IV ONE (18:00)
[2016-12-27] MEDS: IV NORMAL SALINE 1000ML BAG 1,000 ML IV SCH (18:07)
[2016-12-27 18:15] LABS: BASO % 0 % (0-3); EOS % 0 % (0-3); HEMATOCRIT 27.4 % (36.0-47.0); HEMOGLOBIN 9.1 g/dL (12.0-15.5); LYMPH # 0.2 x10^3/uL (1.0-4.8); LYMPH % 2 % (24-48); MEAN CORPUSCULAR HEMOGLOBIN 33 pg (25-35); MEAN CORPUSCULAR HGB CONC 33 g/dL (31-37); MEAN CORPUSCULAR VOLUME 99 fL (79-100); MONO % 0 % (0-9); NEUT % 97 % (31-73); PLATELET COUNT 114 x10^3/uL (140-400); RED BLOOD COUNT 2.77 x10^6/uL (3.50-5.40); RED CELL DISTRIBUTION WIDTH 24.1 % (11.5-14.5); WHITE BLOOD COUNT 7.8 x10^3/uL (4.0-11.0)
[2016-12-27 18:30] LABS: CALCIUM 6.9 mg/dL (8.5-10.1); GFR 11.2; POTASSIUM 5.4 mmol/L (3.5-5.1)
[2016-12-27 19:02] LABS: PLT ESTIMATE DECREASED (ADEQUATE)
[2016-12-27 19:03] LABS: ANISOCYTOSIS MOD; DIRECT BILIRUBIN 0.2 mg/dL (0.0-0.2); TOTAL BILIRUBIN 0.6 mg/dL (0.2-1.0)
[2016-12-27] MEDS: GABAPENTIN 300 MG CAPSULE. PO SCH (21:58)
[2016-12-27] MEDS: PIPERACILLIN/TAZOBACTAM 2.25 GM in IV NORMAL SALINE 50ML 50 ML IV SCH (23:30)
[2016-12-28 02:36] LABS: BILIRUBIN,URINE LARGE (NEG); GLUCOSE,URINE NEGATIVE (NEG); NITRITE,URINE NEGATIVE (NEG); PROTEIN,URINE NEGATIVE (NEG-TRACE); UROBILINOGEN,URINE 0.2 mg/dL (0.2 mg/dL)
[2016-12-28 02:47] LABS: BACTERIA,URINE FEW /HPF (0-FEW); RBC,URINE 0 /HPF (0-2); SQUAMOUS EPITHELIAL CELL,UR MANY /LPF; WBC,URINE 20-40 /HPF (0-4); YEAST,URINE PRESENT /HPF
[2016-12-28 03:00] VITALS: BP 126/50
[2016-12-28] MEDS: oxyCODONE/APAP 5/325 1 TAB TABLET PO PRN ×2 (06:02→21:15)
[2016-12-28] MEDS: PANTOPRAZOLE 40 MG TABLET.DR. PO SCH (06:02)
[2016-12-28 06:03] LABS: BASO % 0 % (0-3); EOS % 0 % (0-3); HEMATOCRIT 25.1 % (36.0-47.0); HEMOGLOBIN 8.6 g/dL (12.0-15.5); LYMPH # 0.2 x10^3/uL (1.0-4.8); LYMPH % 3 % (24-48); MEAN CORPUSCULAR HEMOGLOBIN 33 pg (25-35); MEAN CORPUSCULAR HGB CONC 34 g/dL (31-37); MEAN CORPUSCULAR VOLUME 98 fL (79-100); MONO % 1 % (0-9); NEUT % 96 % (31-73); PLATELET COUNT 97 x10^3/uL (140-400); RED BLOOD COUNT 2.56 x10^6/uL (3.50-5.40); RED CELL DISTRIBUTION WIDTH 24.1 % (11.5-14.5); WHITE BLOOD COUNT 5.5 x10^3/uL (4.0-11.0)
[2016-12-28] MEDS: PIPERACILLIN/TAZOBACTAM 2.25 GM in IV NORMAL SALINE 50ML 50 ML IV SCH ×3 (06:08→22:31)
[2016-12-28 06:35] LABS: ALBUMIN 1.8 g/dL (3.4-5.0); ALBUMIN/GLOBULIN RATIO 0.6 (1.0-1.7); CALCIUM 6.7 mg/dL (8.5-10.1); CREATININE 4.1 mg/dL (0.6-1.0); GFR 10.9; POTASSIUM 5.4 mmol/L (3.5-5.1); TOTAL BILIRUBIN 0.6 mg/dL (0.2-1.0); TOTAL PROTEIN 4.7 g/dL (6.4-8.2)
[2016-12-28 07:00] VITALS: BP_SYST 145; BP_SYST 150; BP_DIAS 117; BP_DIAS 120
[2016-12-28] MEDS: IV NORMAL SALINE 1000ML BAG 1,000 ML IV SCH (07:12)
--- NOTE | 2016-12-28 07:31 | RAD ---
Portable chest, 12/27/2016: History: Fever Comparison is made to a study from 11/26/2016. A right Port-A-Cath extends into the superior vena cava. The left ventricle is prominent. The pulmonary vascularity is within normal limits. Left basilar infiltrates have cleared. There is mild residual prominence of the right parahilar markings. No pulmonary consolidation is seen. There is no evidence of pleural fluid. IMPRESSION: 1. The right Port-A-Cath is in satisfactory position. 2. Mild bilateral pulmonary infiltrates have largely cleared with mild residual prominence of the right parahilar markings. 3. No new abnormality is detected.
--- NOTE | 2016-12-28 07:34 | RAD ---
Renal ultrasound, 12/27/2016: History: Acute renal failure The right kidney measures 11.4 cm in length while the left kidney measures 11.0 cm. There is no evidence of hydronephrosis or a renal mass. The renal parenchymal echogenicity is within normal limits. No abnormal perinephric process is seen. Limited views of urinary bladder show no abnormality. IMPRESSION: No significant abnormality is identified.
[2016-12-28 07:45] LABS: MAGNESIUM 1.9 mg/dL (1.8-2.4); PHOSPHORUS 7.4 mg/dL (2.6-4.7)
--- NOTE | 2016-12-28 07:48 | PDOC ---
Infectious Disease Note ROS ROS GEN: Denies fevers, chills, sweats HEENT: Denies blurred vision, sore throat CV: Denies chest pain RESP: Denies shortness of air, cough GI: Denies n/v/d NEURO: Denies confusion, dizziness MSK: Denies weakness, joint pain/swelling Vital Sign Vital Signs Vital Signs Date Time Temp Pulse Resp B/P Pulse Ox O2 Delivery O2 Flow Rate FiO2 12/28/16 06:02 16 Room Air 12/28/16 03:00 98.5 93 126/50 93 98.5 Physical Exam PHYSICAL EXAM GENERAL: NAD, Alert HEENT: PERRL, OC/OP NECK: Supple, no JVD, no LN LUNGS: Clear HEART: S1S2, no gallop, no murmur ABD: Soft, NT, no organomegaly, no rebound EXT: No edema, no cyanosis 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, 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, no focal neurologic deficit SKIN: No rash IV: ok Labs Lab Laboratory Tests Test 12/27/16 08:39 12/27/16 18:00 12/27/16 22:00 12/28/16 05:45 Hemoglobin 7.6g/dL (12.0-15.5) 9.1g/dL (12.0-15.5) 8.6g/dL (12.0-15.5) Hematocrit 24.0% (36.0-47.0) 27.4% (36.0-47.0) 25.1% (36.0-47.0) Mean Corpuscular Hemoglobin Concent 32g/dL (31-37) 33g/dL (31-37) 34g/dL (31-37) White Blood Count 7.8x10^3/uL (4.0-11.0) 5.5x10^3/uL (4.0-11.0) Red Blood Count 2.77x10^6/uL (3.50-5.40) 2.56x10^6/uL (3.50-5.40) Mean Corpuscular Volume 99fL (79-100) 98fL (79-100) Mean Corpuscular Hemoglobin 33pg (25-35) 33pg (25-35) Red Cell Distribution Width 24.1% (11.5-14.5) 24.1% (11.5-14.5) Platelet Count 114x10^3/uL (140-400) 97x10^3/uL (140-400) Neutrophils (%) (Auto) 97% (31-73) 96% (31-73) Lymphocytes (%) (Auto) 2% (24-48) 3% (24-48) Monocytes (%) (Auto) 0% (0-9) 1% (0-9) Eosinophils (%) (Auto) 0% (0-3) 0% (0-3) Basophils (%) (Auto) 0% (0-3) 0% (0-3) Neutrophils # (Auto) 7.5x10^3uL (1.8-7.7) 5.3x10^3uL (1.8-7.7) Lymphocytes # (Auto) 0.2x10^3/uL (1.0-4.8) 0.2x10^3/uL (1.0-4.8) Monocytes # (Auto) 0.0x10^3/uL (0.0-1.1) 0.0x10^3/uL (0.0-1.1) Eosinophils # (Auto) 0.0x10^3/uL (0.0-0.7) 0.0x10^3/uL (0.0-0.7) Basophils # (Auto) 0.0x10^3/uL (0.0-0.2) 0.0x10^3/uL (0.0-0.2) Segmented Neutrophils % 97% (35-66) Band Neutrophils % 1% (0-9) Lymphocytes % 2% (24-48) Platelet Estimate Decreased (ADEQUATE) Anisocytosis Mod Macrocytosis Slight Erythrocyte Sedimentation Rate 78 (0-25) Sodium Level 135mmol/L (136-145) 135mmol/L (136-145) Potassium Level 5.4mmol/L (3.5-5.1) 5.4mmol/L (3.5-5.1) Chloride Level 105mmol/L (98-107) 107mmol/L (98-107) Carbon Dioxide Level 17mmol/L (21-32) 15mmol/L (21-32) Anion Gap 13 (6-14) 13 (6-14) Blood Urea Nitrogen 73mg/dL (7-20) 80mg/dL (7-20) Creatinine 4.0mg/dL (0.6-1.0) 4.1mg/dL (0.6-1.0) Estimated GFR (Cockcroft-Gault) 11.2 10.9 Glucose Level 100mg/dL (70-99) 92mg/dL (70-99) Calcium Level 6.9mg/dL (8.5-10.1) 6.7mg/dL (8.5-10.1) Total Bilirubin 0.6mg/dL (0.2-1.0) 0.6mg/dL (0.2-1.0) Direct Bilirubin 0.2mg/dL (0.0-0.2) Aspartate Amino Transf (AST/SGOT) 74U/L (15-37) 116U/L (15-37) Alanine Aminotransferase (ALT/SGPT) 40U/L (14-59) 49U/L (14-59) Alkaline Phosphatase 82U/L (46-116) 94U/L (46-116) C-Reactive Protein High Sensitivity 129.50mg/L (0.00-3.00) Total Protein 5.0g/dL (6.4-8.2) 4.7g/dL (6.4-8.2) Albumin 2.0g/dL (3.4-5.0) 1.8g/dL (3.4-5.0) Urine Collection Type Unknown Urine Color Shari Urine Clarity Cloudy Urine pH 5.0 Urine Specific Regan 1.020 Urine Protein Negativemg/dL (NEG-TRACE) Urine Glucose (UA) Negativemg/dL (NEG) Urine Ketones (Stick) Negativemg/dL (NEG) Urine Blood Negative (NEG) Urine Nitrite Negative (NEG) Urine Bilirubin Large (NEG) Urine Urobilinogen Dipstick 0.2mg/dL (0.2 mg/dL) Urine Leukocyte Esterase Moderate (NEG) Urine RBC 0/HPF (0-2) Urine WBC 20-40/HPF (0-4) Urine Squamous Epithelial Cells Many/LPF Urine Amorphous Sediment Present/HPF Urine Bacteria Few/HPF (0-FEW) Urine Mucus Marked/LPF Urine Yeast Present/HPF BUN/Creatinine Ratio 20 (6-20) Ionized Calcium 0.94mmol/L (1.13-1.32) Albumin/Globulin Ratio 0.6 (1.0-1.7) Thyroid Stimulating Hormone (TSH) 4.853uIU/mL (0.358-3.74) Objective Assessment Right LE cellulitis ARTURO mild encephalopathy ? electrolyte disturbance, low CA, ? met Cholangiocarcinoma s/p chemo 12/24 Plan Plan of Care D/c Vanc STAT Mg/Phos Dose Calcium Chloride times one Begin Zyvox/Zosyn/Micafungin [place] Renal eval - d/w Dr. Kerr May need CT head if encephalopathy/twitch does not resolve with renal treatment Thank you # [id number] RAHEEM TY MD Dec 28, 2016 07:48
[2016-12-28] MEDS ORDERED: CALCIUM CHLORIDE 2,000 MG in IV NORMAL SALINE 100ML 100 ML IV ONE (08:00)
[2016-12-28] MEDS: MICAFUNGIN 100 MG in IV DEXTROSE 5% 100 ML IV SCH (08:03)
[2016-12-28] MEDS ORDERED: IV NORMAL SALINE 500ML BAG 500 ML IV PRN (08:15)
--- NOTE | 2016-12-28 08:23 | PDOC2 ---
CONSULT Date of Consult Date of Consult DATE: 12/28/16 TIME: 08:00 Past Medical History Cardiovascular: No pertinent hx Pulmonary: No pertinent hx GI: GERD Heme/Onc: Cancer ([place]) Musculoskeletal: Other Infectious disease: No pertinent hx Renal/: No pertinent hx Family History Family History: No Significant Social History No ALCOHOL: none Drugs: None Current Problem List Problem List Problems Medical Problems: (1) Cellulitis Status: Acute Current Medications Current Medications Current Medications Acetaminophen (Tylenol) 650 mg 1X ONCE PO Last administered on 12/27/16 09:11 ; Start 12/27/16 at 08:15; Stop 12/27/16 at 08:22; Status DC Diphenhydramine HCl (Benadryl) 25 mg 1X ONCE PO Last administered on 09:12; Start 12/27/16 at 08:15; Stop 12/27/16 at 08:22; Status DC Furosemide (Lasix) 20 mg 1X ONCE IVP ; Start 12/27/16 at 08:15; Stop 12/27/16 at 08:22; Status DC Fentanyl Citrate (Fentanyl 2ml Vial) 25 mcg PRN QID PRN IV PAIN; Start at 16:45; Stop 12/29/16 at 21:00 Lisinopril (Prinivil) 10 mg DAILY PO ; Start 12/28/16 at 09:00; Stop 12/28/16 at 09:00; Status DC Oxycodone/ Acetaminophen (Percocet 5/325) 1 tab Q4HRS PRN PO MODERATE PAIN; Start 12/27/16 at 16:45 Gabapentin (Neurontin) 300 mg TID PO Last administered on 12/27/16 21:58; Start 12/27/16 at 21:00 Cetirizine HCl (Zyrtec) 10 mg PRN DAILY PRN PO ALLERGIES; Start 12/28/16 at 09: 00 Pantoprazole Sodium (Protonix) 40 mg DAILYAC PO Last administered on 12/28/16 06:02; Start 12/28/16 at 07:30 Oxycodone/ Acetaminophen 2 tab 2 tab Q4HRS PRN PO SEVERE PAIN Last administered on 12/28/16 06:02; Start 12/27/16 at 16:45 Sodium Chloride (Iv Sodium Chloride 0.9% 1000ml Bag) 1,000 ml @ 75 mls/hr [id number] IV Last administered on 12/28/16 07:12; Start 12/27/16 at 17:30 Piperacillin Sod/ Tazobactam Sod (Zosyn Per Pharmacy) 1 each PRN DAILY PRN MC SEE COMMENTS; Start 12/27/16 at 17:30; Stop 12/28/16 at 07:27; Status DC Vancomycin HCl 1 each 1 each PRN DAILY PRN MC SEE COMMENTS Last administered on 12/27/16 18:45; Start 12/27/16 at 17:30; Stop 12/27/16 at 18:51; Status DC Vancomycin HCl 2 gm/Sodium Chloride 500 ml @ 250 mls/hr 1X ONCE IV ; Start at 17:45; Stop 12/27/16 at 18:51; Status DC Piperacillin Sod/ Tazobactam Sod 3.375 gm/Sodium Chloride 50 ml @ 100 mls/hr 1X ONCE IV Last administered on 12/27/16 18:07; Start 12/27/16 at 18:00; Stop 12/27/16 at 18:29; Status DC Piperacillin Sod/ Tazobactam Sod 2.25 gm/Sodium Chloride 50 ml @ 100 mls/hr Q6HRS IV Last administered on 12/28/16 06:08; Start 12/28/16 at 00:00; Stop at 07:31; Status DC Vancomycin HCl 1.5 gm/Sodium Chloride 500 ml @ 250 mls/hr Q48H IV ; Start 12/29 at 20:00; Stop 12/29/16 at 20:00; Status DC Micafungin Sodium 100 mg/Dextrose 100 ml @ 100 mls/hr Q24H IV ; Start 12/28/16 at 08:00 Linezolid 300 ml @ 300 mls/hr Q12HR IV ; Start 12/28/16 at 09:00 Piperacillin Sod/ Tazobactam Sod 2.25 gm/Sodium Chloride 50 ml @ 100 mls/hr Q8HRS IV ; Start 12/28/16 at 14:00 Calcium Chloride/ Sodium Chloride (Iv Sodium Chloride 0.9% 100ml) 120 ml @ 240 mls/hr 1X ONCE IV ; Start 12/28/16 at 08:00; Stop 12/28/16 at 08:29 Active Scripts Active Reported Claritin (Loratadine) 10 Mg Tablet 1 Tab PO DAILY PRN Bactrim 400-80 Mg Tablet (Sulfamethoxazole/Trimethoprim) 1 Each Tablet 1 Tab PO BID Gabapentin 300 Mg Capsule 300 Mg PO TID Zestril (Lisinopril) 10 Mg Tablet 10 Mg PO DAILY Cyanocobalamin Injection (Cyanocobalamin (Vitamin B-12)) 1,000 Mcg/1 Ml Vial 1, 000 Mcg QMONTH Percocet 5-325 Mg Tablet (Oxycodone/Acetaminophen) 1 Each Tablet 1-2 Tab PO Q4- 6HRS Prilosec Otc (Omeprazole Magnesium) 20 Mg Tablet.dr 20 Mg PO DAILY Allergies Allergies: Coded Allergies: No Known Drug Allergies (Unverified , 12/27/16) ROS Review of System GEN: no Fevers no Chills Weakness, maliase, fatigue EYES: no new Visual Complaints ENT: no EN Drainage no Hearing deficiets CVS: no Orthopnea no CP + Edema in lower ext RESP: no SOB no SEGUNDO GI: no Nausea no Vomiting NO Diarrhea : no Dysuria no Urgency Dec UO HEME: no easy bruising no Palp Ly Nodes NEURO no Focal Weakness no Sz PSYCH: no Suicidal Ideation ? Depression SKIN: + Low ext Rashes ENDO: no Polyuria or Polydipsia no Hot/Cold Intolerance MU SK: [ ] Arthraigia [ ] Myalgia Physical Exam Physical Exam General Appearance: Awake Alert Oriented x 2 In no Distress Eyes: VIsion Unchanged Conjunctiva Normal EN: No EN Drainage Mucous Memb. dryish Neck: no JVD no JVP Supple no Thyromegaly CVS: S1 S2 ? Murmur No Gallop No Rub +2-3 lower ext Edema Resp: no Rales no Rhonchi no Acc. Muscle use GI: BAS +ve NO Bruit Non Tender Non Distended - Obese : no CVA tenderness; no Suprapubic Tenderness SKIN: ? Lower ext erythematous (cellulitis) Rashes Breast Exam deferred Mu.Sk: Adequate ROM no Muscle Atrophy Heme: Unable to palpate Obvious LAD no palp Splenomegaly NEURO: ? Dec Strength ; Cranial Nerves II - XII grossly intact; No Asterixis per se, ? Some Myoclonic Jerks Psych: ? Depressed no Active hallucination Vital Signs Vital Signs Date Time Temp Pulse Resp B/P Pulse Ox O2 Delivery O2 Flow Rate FiO2 12/28/16 06:02 16 Room Air 12/28/16 03:00 98.5 93 126/50 93 98.5 Assessment & Plan ARF/ ATN vs Sev Pre-Renal state: Dialysis as below (later today after line placement) once and pt talk F 180 NR 3.5 Hrs 3 K 2.5 Ca 140 Na 40 HC03 Qb 350 + Qd 500+ Heparin 0 Units Uf 0 Kgs or to dry weight as tolerated May give 25-50 gms of 25% Albumin if needed to maintain Hemodynamic stability Treatment plan reviewed and discussed with portable grinding machine operator ^K - anticipate correction with Correction of Met Acidosis (IVF with Bicarb vs HD) Met Acidosis - as above HypoCalcemia - IV CaCl2 given - ? TLS (await Dr Connell's input) - Myoclonic Jerks - ? due to Low Axel vs Uremic - await decision on HD Oligo-anuria - Cannot r/o ATn per se (Urine was dark as reported by RN) Anemia: defer to Dr Connell Sev hypoAlbuminemia - ? due to lIver dysfunction Edema - due to HypALb - IV Alb once Acidosis corrects. occ HypoTN: ? Vol depeltion - IVF as ordered ^ phos - ? TLS vs renal failure Discussed Plan of Care and prognosis etc. at length with Dr Casas, RN and pt. Labs Labs Laboratory Tests Test 12/27/16 08:39 12/27/16 18:00 12/27/16 22:00 12/28/16 05:45 Hemoglobin 7.6g/dL (12.0-15.5) 9.1g/dL (12.0-15.5) 8.6g/dL (12.0-15.5) Hematocrit 24.0% (36.0-47.0) 27.4% (36.0-47.0) 25.1% (36.0-47.0) Mean Corpuscular Hemoglobin Concent 32g/dL (31-37) 33g/dL (31-37) 34g/dL (31-37) White Blood Count 7.8x10^3/uL (4.0-11.0) 5.5x10^3/uL (4.0-11.0) Red Blood Count 2.77x10^6/uL (3.50-5.40) 2.56x10^6/uL (3.50-5.40) Mean Corpuscular Volume 99fL (79-100) 98fL (79-100) Mean Corpuscular Hemoglobin 33pg (25-35) 33pg (25-35) Red Cell Distribution Width 24.1% (11.5-14.5) 24.1% (11.5-14.5) Platelet Count 114x10^3/uL (140-400) 97x10^3/uL (140-400) Neutrophils (%) (Auto) 97% (31-73) 96% (31-73) Lymphocytes (%) (Auto) 2% (24-48) 3% (24-48) Monocytes (%) (Auto) 0% (0-9) 1% (0-9) Eosinophils (%) (Auto) 0% (0-3) 0% (0-3) Basophils (%) (Auto) 0% (0-3) 0% (0-3) Neutrophils # (Auto) 7.5x10^3uL (1.8-7.7) 5.3x10^3uL (1.8-7.7) Lymphocytes # (Auto) 0.2x10^3/uL (1.0-4.8) 0.2x10^3/uL (1.0-4.8) Monocytes # (Auto) 0.0x10^3/uL (0.0-1.1) 0.0x10^3/uL (0.0-1.1) Eosinophils # (Auto) 0.0x10^3/uL (0.0-0.7) 0.0x10^3/uL (0.0-0.7) Basophils # (Auto) 0.0x10^3/uL (0.0-0.2) 0.0x10^3/uL (0.0-0.2) Segmented Neutrophils % 97% (35-66) Band Neutrophils % 1% (0-9) Lymphocytes % 2% (24-48) Platelet Estimate Decreased (ADEQUATE) Anisocytosis Mod Macrocytosis Slight Erythrocyte Sedimentation Rate 78 (0-25) Sodium Level 135mmol/L (136-145) 135mmol/L (136-145) Potassium Level 5.4mmol/L (3.5-5.1) 5.4mmol/L (3.5-5.1) Chloride Level 105mmol/L (98-107) 107mmol/L (98-107) Carbon Dioxide Level 17mmol/L (21-32) 15mmol/L (21-32) Anion Gap 13 (6-14) 13 (6-14) Blood Urea Nitrogen 73mg/dL (7-20) 80mg/dL (7-20) Creatinine 4.0mg/dL (0.6-1.0) 4.1mg/dL (0.6-1.0) Estimated GFR (Cockcroft-Gault) 11.2 10.9 Glucose Level 100mg/dL (70-99) 92mg/dL (70-99) Calcium Level 6.9mg/dL (8.5-10.1) 6.7mg/dL (8.5-10.1) Total Bilirubin 0.6mg/dL (0.2-1.0) 0.6mg/dL (0.2-1.0) Direct Bilirubin 0.2mg/dL (0.0-0.2) Aspartate Amino Transf (AST/SGOT) 74U/L (15-37) 116U/L (15-37) Alanine Aminotransferase (ALT/SGPT) 40U/L (14-59) 49U/L (14-59) Alkaline Phosphatase 82U/L (46-116) 94U/L (46-116) C-Reactive Protein High Sensitivity 129.50mg/L (0.00-3.00) Total Protein 5.0g/dL (6.4-8.2) 4.7g/dL (6.4-8.2) Albumin 2.0g/dL (3.4-5.0) 1.8g/dL (3.4-5.0) Urine Collection Type Unknown Urine Color Shari Urine Clarity Cloudy Urine pH 5.0 Urine Specific [place] 1.020 Urine Protein Negativemg/dL (NEG-TRACE) Urine Glucose (UA) Negativemg/dL (NEG) Urine Ketones (Stick) Negativemg/dL (NEG) Urine Blood Negative (NEG) Urine Nitrite Negative (NEG) Urine Bilirubin Large (NEG) Urine Urobilinogen Dipstick 0.2mg/dL (0.2 mg/dL) Urine Leukocyte Esterase Moderate (NEG) Urine RBC 0/HPF (0-2) Urine WBC 20-40/HPF (0-4) Urine Squamous Epithelial Cells Many/LPF Urine Amorphous Sediment Present/HPF Urine Bacteria Few/HPF (0-FEW) Urine Mucus Marked/LPF Urine Yeast Present/HPF BUN/Creatinine Ratio 20 (6-20) Ionized Calcium 0.94mmol/L (1.13-1.32) Phosphorus Level 7.4mg/dL (2.6-4.7) Magnesium Level 1.9mg/dL (1.8-2.4) Albumin/Globulin Ratio 0.6 (1.0-1.7) Thyroid Stimulating Hormone (TSH) 4.853uIU/mL (0.358-3.74) Laboratory Tests Test 12/27/16 08:39 12/27/16 18:00 12/27/16 22:00 12/28/16 05:45 Hemoglobin 7.6g/dL (12.0-15.5) 9.1g/dL (12.0-15.5) 8.6g/dL (12.0-15.5) Hematocrit 24.0% (36.0-47.0) 27.4% (36.0-47.0) 25.1% (36.0-47.0) Mean Corpuscular Hemoglobin Concent 32g/dL (31-37) 33g/dL (31-37) 34g/dL (31-37) White Blood Count 7.8x10^3/uL (4.0-11.0) 5.5x10^3/uL (4.0-11.0) Red Blood Count 2.77x10^6/uL (3.50-5.40) 2.56x10^6/uL (3.50-5.40) Mean Corpuscular Volume 99fL (79-100) 98fL (79-100) Mean Corpuscular Hemoglobin 33pg (25-35) 33pg (25-35) Red Cell Distribution Width 24.1% (11.5-14.5) 24.1% (11.5-14.5) Platelet Count 114x10^3/uL (140-400) 97x10^3/uL (140-400) Neutrophils (%) (Auto) 97% (31-73) 96% (31-73) Lymphocytes (%) (Auto) 2% (24-48) 3% (24-48) Monocytes (%) (Auto) 0% (0-9) 1% (0-9) Eosinophils (%) (Auto) 0% (0-3) 0% (0-3) Basophils (%) (Auto) 0% (0-3) 0% (0-3) Neutrophils # (Auto) 7.5x10^3uL (1.8-7.7) 5.3x10^3uL (1.8-7.7) Lymphocytes # (Auto) 0.2x10^3/uL (1.0-4.8) 0.2x10^3/uL (1.0-4.8) Monocytes # (Auto) 0.0x10^3/uL (0.0-1.1) 0.0x10^3/uL (0.0-1.1) Eosinophils # (Auto) 0.0x10^3/uL (0.0-0.7) 0.0x10^3/uL (0.0-0.7) Basophils # (Auto) 0.0x10^3/uL (0.0-0.2) 0.0x10^3/uL (0.0-0.2) Segmented Neutrophils % 97% (35-66) Band Neutrophils % 1% (0-9) Lymphocytes % 2% (24-48) Platelet Estimate Decreased (ADEQUATE) Anisocytosis Mod Macrocytosis Slight Erythrocyte Sedimentation Rate 78 (0-25) Sodium Level 135mmol/L (136-145) 135mmol/L (136-145) Potassium Level 5.4mmol/L (3.5-5.1) 5.4mmol/L (3.5-5.1) Chloride Level 105mmol/L (98-107) 107mmol/L (98-107) Carbon Dioxide Level 17mmol/L (21-32) 15mmol/L (21-32) Anion Gap 13 (6-14) 13 (6-14) Blood Urea Nitrogen 73mg/dL (7-20) 80mg/dL (7-20) Creatinine 4.0mg/dL (0.6-1.0) 4.1mg/dL (0.6-1.0) Estimated GFR (Cockcroft-Gault) 11.2 10.9 Glucose Level 100mg/dL (70-99) 92mg/dL (70-99) Calcium Level 6.9mg/dL (8.5-10.1) 6.7mg/dL (8.5-10.1) Total Bilirubin 0.6mg/dL (0.2-1.0) 0.6mg/dL (0.2-1.0) Direct Bilirubin 0.2mg/dL (0.0-0.2) Aspartate Amino Transf (AST/SGOT) 74U/L (15-37) 116U/L (15-37) Alanine Aminotransferase (ALT/SGPT) 40U/L (14-59) 49U/L (14-59) Alkaline Phosphatase 82U/L (46-116) 94U/L (46-116) C-Reactive Protein High Sensitivity 129.50mg/L (0.00-3.00) Total Protein 5.0g/dL (6.4-8.2) 4.7g/dL (6.4-8.2) Albumin 2.0g/dL (3.4-5.0) 1.8g/dL (3.4-5.0) Urine Collection Type Unknown Urine Color Shari Urine Clarity Cloudy Urine pH 5.0 Urine Specific [place] 1.020 Urine Protein Negativemg/dL (NEG-TRACE) Urine Glucose (UA) Negativemg/dL (NEG) Urine Ketones (Stick) Negativemg/dL (NEG) Urine Blood Negative (NEG) Urine Nitrite Negative (NEG) Urine Bilirubin Large (NEG) Urine Urobilinogen Dipstick 0.2mg/dL (0.2 mg/dL) Urine Leukocyte Esterase Moderate (NEG) Urine RBC 0/HPF (0-2) Urine WBC 20-40/HPF (0-4) Urine Squamous Epithelial Cells Many/LPF Urine Amorphous Sediment Present/HPF Urine Bacteria Few/HPF (0-FEW) Urine Mucus Marked/LPF Urine Yeast Present/HPF BUN/Creatinine Ratio 20 (6-20) Ionized Calcium 0.94mmol/L (1.13-1.32) Phosphorus Level 7.4mg/dL (2.6-4.7) Magnesium Level 1.9mg/dL (1.8-2.4) Albumin/Globulin Ratio 0.6 (1.0-1.7) Thyroid Stimulating Hormone (TSH) 4.853uIU/mL (0.358-3.74) Images Images Renal ultrasound, 12/27/2016: History: Acute renal failure The right kidney measures 11.4 cm in length while the left kidney measures 11.0 cm. There is no evidence of hydronephrosis or a renal mass. The renal parenchymal echogenicity is within normal limits. No abnormal perinephric process is seen. Limited views of urinary bladder show no abnormality. IMPRESSION: No significant abnormality is identified. DAKOTA VINCENT MD Dec 28, 2016 08:23
[2016-12-28] MEDS ORDERED: HEPARIN for IV BOLUS 10,000 UNIT/10 ML VIAL. ONE (08:46)
[2016-12-28] MEDS ORDERED: LIDOCAINE 1% / SOD BICARB 8.4% 20 ML VIAL. IJ ONE ×2 (08:47→09:00)
[2016-12-28] MEDS ORDERED: LISINOPRIL 10 MG TABLET PO SCH (09:00)
[2016-12-28] MEDS ORDERED: CETIRIZINE HCL 10 MG TABLET. PO PRN (09:00)
[2016-12-28] MEDS ORDERED: MIDAZOLAM HCL/PF 2 MG/2 ML VIAL. ONE (09:41)
--- NOTE | 2016-12-28 10:09 | PDOC ---
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 Now with ARF, with hyperkalemia and metabolic acidosis. Post-Procedure Diagnosis Post-Procedure Diagnosis Same Procedure Performed Procedure Performed Sono/fluoro guided temp HDC insertion Type of Anesthesia Type of Anesthesia Local Estimated Blood Loss EBL: Minimal Drain/Tubes Drains/Tubes Left IJ 14F 24cm Schon temp HDC Condition of Patient Condition of Patient Stable. No apparent complication,. Disposition Disposition From IR return to [facility]. OK to use Temp HDC. F/u with Renal. Full report to follow. KIAH MARTINEZ MD Dec 28, 2016 10:09
--- NOTE | 2016-12-28 10:34 | PDOC ---
PROGRESS NOTES Chief Complaint Chief Complaint acute metabolic encephalopathy cellulitis BLE, diffuse, Acute renal failure, hyperkalemia, gap metabolic acidosis, uremia GERD peripheral neuropathy cholangiocarcinoma History of Present Illness History of Present Illness shaking worse this AM some worse with confusion low urine output 400mls 12 hours, and dark despite IV fluids labs worse plan HD today, Vitals Vitals Vital Signs Date Time Temp Pulse Resp B/P Pulse Ox O2 Delivery O2 Flow Rate FiO2 12/28/16 07:15 93 Room Air 12/28/16 07:00 99.0 90 18 145/120 99.0 150/117 Physical Exam General: Alert, Oriented X3, Cooperative, mild distress Heart: Normal S1, Gallops Lungs: Clear, Crackles, Other Abdomen: Normal bowel sounds, Soft, No tenderness Extremities: No clubbing, Other (3+ BLE edema, diffuse edema to knees and thighs) Skin: Other (diffuse erythema of both legs, not beefy, but warm and tender) Labs LABS Laboratory Tests Test 12/27/16 18:00 12/27/16 22:00 12/28/16 05:45 White Blood Count 7.8x10^3/uL (4.0-11.0) 5.5x10^3/uL (4.0-11.0) Red Blood Count 2.77x10^6/uL (3.50-5.40) 2.56x10^6/uL (3.50-5.40) Hemoglobin 9.1g/dL (12.0-15.5) 8.6g/dL (12.0-15.5) Hematocrit 27.4% (36.0-47.0) 25.1% (36.0-47.0) Mean Corpuscular Volume 99fL (79-100) 98fL (79-100) Mean Corpuscular Hemoglobin 33pg (25-35) 33pg (25-35) Mean Corpuscular Hemoglobin Concent 33g/dL (31-37) 34g/dL (31-37) Red Cell Distribution Width 24.1% (11.5-14.5) 24.1% (11.5-14.5) Platelet Count 114x10^3/uL (140-400) 97x10^3/uL (140-400) Neutrophils (%) (Auto) 97% (31-73) 96% (31-73) Lymphocytes (%) (Auto) 2% (24-48) 3% (24-48) Monocytes (%) (Auto) 0% (0-9) 1% (0-9) Eosinophils (%) (Auto) 0% (0-3) 0% (0-3) Basophils (%) (Auto) 0% (0-3) 0% (0-3) Neutrophils # (Auto) 7.5x10^3uL (1.8-7.7) 5.3x10^3uL (1.8-7.7) Lymphocytes # (Auto) 0.2x10^3/uL (1.0-4.8) 0.2x10^3/uL (1.0-4.8) Monocytes # (Auto) 0.0x10^3/uL (0.0-1.1) 0.0x10^3/uL (0.0-1.1) Eosinophils # (Auto) 0.0x10^3/uL (0.0-0.7) 0.0x10^3/uL (0.0-0.7) Basophils # (Auto) 0.0x10^3/uL (0.0-0.2) 0.0x10^3/uL (0.0-0.2) Segmented Neutrophils % 97% (35-66) Band Neutrophils % 1% (0-9) Lymphocytes % 2% (24-48) Platelet Estimate Decreased (ADEQUATE) Anisocytosis Mod Macrocytosis Slight Erythrocyte Sedimentation Rate 78 (0-25) Sodium Level 135mmol/L (136-145) 135mmol/L (136-145) Potassium Level 5.4mmol/L (3.5-5.1) 5.4mmol/L (3.5-5.1) Chloride Level 105mmol/L (98-107) 107mmol/L (98-107) Carbon Dioxide Level 17mmol/L (21-32) 15mmol/L (21-32) Anion Gap 13 (6-14) 13 (6-14) Blood Urea Nitrogen 73mg/dL (7-20) 80mg/dL (7-20) Creatinine 4.0mg/dL (0.6-1.0) 4.1mg/dL (0.6-1.0) Estimated GFR (Cockcroft-Gault) 11.2 10.9 Glucose Level 100mg/dL (70-99) 92mg/dL (70-99) Calcium Level 6.9mg/dL (8.5-10.1) 6.7mg/dL (8.5-10.1) Total Bilirubin 0.6mg/dL (0.2-1.0) 0.6mg/dL (0.2-1.0) Direct Bilirubin 0.2mg/dL (0.0-0.2) Aspartate Amino Transf (AST/SGOT) 74U/L (15-37) 116U/L (15-37) Alanine Aminotransferase (ALT/SGPT) 40U/L (14-59) 49U/L (14-59) Alkaline Phosphatase 82U/L (46-116) 94U/L (46-116) C-Reactive Protein High Sensitivity 129.50mg/L (0.00-3.00) Total Protein 5.0g/dL (6.4-8.2) 4.7g/dL (6.4-8.2) Albumin 2.0g/dL (3.4-5.0) 1.8g/dL (3.4-5.0) Urine Collection Type Unknown Urine Color Shari Urine Clarity Cloudy Urine pH 5.0 Urine Specific [place] 1.020 Urine Protein Negativemg/dL (NEG-TRACE) Urine Glucose (UA) Negativemg/dL (NEG) Urine Ketones (Stick) Negativemg/dL (NEG) Urine Blood Negative (NEG) Urine Nitrite Negative (NEG) Urine Bilirubin Large (NEG) Urine Urobilinogen Dipstick 0.2mg/dL (0.2 mg/dL) Urine Leukocyte Esterase Moderate (NEG) Urine RBC 0/HPF (0-2) Urine WBC 20-40/HPF (0-4) Urine Squamous Epithelial Cells Many/LPF Urine Amorphous Sediment Present/HPF Urine Bacteria Few/HPF (0-FEW) Urine Mucus Marked/LPF Urine Yeast Present/HPF BUN/Creatinine Ratio 20 (6-20) Ionized Calcium 0.94mmol/L (1.13-1.32) Phosphorus Level 7.4mg/dL (2.6-4.7) Magnesium Level 1.9mg/dL (1.8-2.4) Albumin/Globulin Ratio 0.6 (1.0-1.7) Vitamin B12 Level 656pg/mL (247-911) Thyroid Stimulating Hormone (TSH) 4.853uIU/mL (0.358-3.74) Review of Systems Review of Systems confusion leg pain weakness shaking Assessment and Plan Assessmemt and Plan Problems Medical Problems: (1) Cellulitis Status: Acute Problems: Comment Review of Relevant I have reviewed the following items ketty (where applicable) has been applied. Labs Laboratory Tests Test 12/27/16 08:39 12/27/16 18:00 12/27/16 22:00 12/28/16 05:45 Hemoglobin 7.6g/dL (12.0-15.5) 9.1g/dL (12.0-15.5) 8.6g/dL (12.0-15.5) Hematocrit 24.0% (36.0-47.0) 27.4% (36.0-47.0) 25.1% (36.0-47.0) Mean Corpuscular Hemoglobin Concent 32g/dL (31-37) 33g/dL (31-37) 34g/dL (31-37) White Blood Count 7.8x10^3/uL (4.0-11.0) 5.5x10^3/uL (4.0-11.0) Red Blood Count 2.77x10^6/uL (3.50-5.40) 2.56x10^6/uL (3.50-5.40) Mean Corpuscular Volume 99fL (79-100) 98fL (79-100) Mean Corpuscular Hemoglobin 33pg (25-35) 33pg (25-35) Red Cell Distribution Width 24.1% (11.5-14.5) 24.1% (11.5-14.5) Platelet Count 114x10^3/uL (140-400) 97x10^3/uL (140-400) Neutrophils (%) (Auto) 97% (31-73) 96% (31-73) Lymphocytes (%) (Auto) 2% (24-48) 3% (24-48) Monocytes (%) (Auto) 0% (0-9) 1% (0-9) Eosinophils (%) (Auto) 0% (0-3) 0% (0-3) Basophils (%) (Auto) 0% (0-3) 0% (0-3) Neutrophils # (Auto) 7.5x10^3uL (1.8-7.7) 5.3x10^3uL (1.8-7.7) Lymphocytes # (Auto) 0.2x10^3/uL (1.0-4.8) 0.2x10^3/uL (1.0-4.8) Monocytes # (Auto) 0.0x10^3/uL (0.0-1.1) 0.0x10^3/uL (0.0-1.1) Eosinophils # (Auto) 0.0x10^3/uL (0.0-0.7) 0.0x10^3/uL (0.0-0.7) Basophils # (Auto) 0.0x10^3/uL (0.0-0.2) 0.0x10^3/uL (0.0-0.2) Segmented Neutrophils % 97% (35-66) Band Neutrophils % 1% (0-9) Lymphocytes % 2% (24-48) Platelet Estimate Decreased (ADEQUATE) Anisocytosis Mod Macrocytosis Slight Erythrocyte Sedimentation Rate 78 (0-25) Sodium Level 135mmol/L (136-145) 135mmol/L (136-145) Potassium Level 5.4mmol/L (3.5-5.1) 5.4mmol/L (3.5-5.1) Chloride Level 105mmol/L (98-107) 107mmol/L (98-107) Carbon Dioxide Level 17mmol/L (21-32) 15mmol/L (21-32) Anion Gap 13 (6-14) 13 (6-14) Blood Urea Nitrogen 73mg/dL (7-20) 80mg/dL (7-20) Creatinine 4.0mg/dL (0.6-1.0) 4.1mg/dL (0.6-1.0) Estimated GFR (Cockcroft-Gault) 11.2 10.9 Glucose Level 100mg/dL (70-99) 92mg/dL (70-99) Calcium Level 6.9mg/dL (8.5-10.1) 6.7mg/dL (8.5-10.1) Total Bilirubin 0.6mg/dL (0.2-1.0) 0.6mg/dL (0.2-1.0) Direct Bilirubin 0.2mg/dL (0.0-0.2) Aspartate Amino Transf (AST/SGOT) 74U/L (15-37) 116U/L (15-37) Alanine Aminotransferase (ALT/SGPT) 40U/L (14-59) 49U/L (14-59) Alkaline Phosphatase 82U/L (46-116) 94U/L (46-116) C-Reactive Protein High Sensitivity 129.50mg/L (0.00-3.00) Total Protein 5.0g/dL (6.4-8.2) 4.7g/dL (6.4-8.2) Albumin 2.0g/dL (3.4-5.0) 1.8g/dL (3.4-5.0) Urine Collection Type Unknown Urine Color Shari Urine Clarity Cloudy Urine pH 5.0 Urine Specific [place] 1.020 Urine Protein Negativemg/dL (NEG-TRACE) Urine Glucose (UA) Negativemg/dL (NEG) Urine Ketones (Stick) Negativemg/dL (NEG) Urine Blood Negative (NEG) Urine Nitrite Negative (NEG) Urine Bilirubin Large (NEG) Urine Urobilinogen Dipstick 0.2mg/dL (0.2 mg/dL) Urine Leukocyte Esterase Moderate (NEG) Urine RBC 0/HPF (0-2) Urine WBC 20-40/HPF (0-4) Urine Squamous Epithelial Cells Many/LPF Urine Amorphous Sediment Present/HPF Urine Bacteria Few/HPF (0-FEW) Urine Mucus Marked/LPF Urine Yeast Present/HPF BUN/Creatinine Ratio 20 (6-20) Ionized Calcium 0.94mmol/L (1.13-1.32) Phosphorus Level 7.4mg/dL (2.6-4.7) Magnesium Level 1.9mg/dL (1.8-2.4) Albumin/Globulin Ratio 0.6 (1.0-1.7) Vitamin B12 Level 656pg/mL (247-911) Thyroid Stimulating Hormone (TSH) 4.853uIU/mL (0.358-3.74) Laboratory Tests Test 12/27/16 18:00 12/27/16 22:00 12/28/16 05:45 White Blood Count 7.8x10^3/uL (4.0-11.0) 5.5x10^3/uL (4.0-11.0) Red Blood Count 2.77x10^6/uL (3.50-5.40) 2.56x10^6/uL (3.50-5.40) Hemoglobin 9.1g/dL (12.0-15.5) 8.6g/dL (12.0-15.5) Hematocrit 27.4% (36.0-47.0) 25.1% (36.0-47.0) Mean Corpuscular Volume 99fL (79-100) 98fL (79-100) Mean Corpuscular Hemoglobin 33pg (25-35) 33pg (25-35) Mean Corpuscular Hemoglobin Concent 33g/dL (31-37) 34g/dL (31-37) Red Cell Distribution Width 24.1% (11.5-14.5) 24.1% (11.5-14.5) Platelet Count 114x10^3/uL (140-400) 97x10^3/uL (140-400) Neutrophils (%) (Auto) 97% (31-73) 96% (31-73) Lymphocytes (%) (Auto) 2% (24-48) 3% (24-48) Monocytes (%) (Auto) 0% (0-9) 1% (0-9) Eosinophils (%) (Auto) 0% (0-3) 0% (0-3) Basophils (%) (Auto) 0% (0-3) 0% (0-3) Neutrophils # (Auto) 7.5x10^3uL (1.8-7.7) 5.3x10^3uL (1.8-7.7) Lymphocytes # (Auto) 0.2x10^3/uL (1.0-4.8) 0.2x10^3/uL (1.0-4.8) Monocytes # (Auto) 0.0x10^3/uL (0.0-1.1) 0.0x10^3/uL (0.0-1.1) Eosinophils # (Auto) 0.0x10^3/uL (0.0-0.7) 0.0x10^3/uL (0.0-0.7) Basophils # (Auto) 0.0x10^3/uL (0.0-0.2) 0.0x10^3/uL (0.0-0.2) Segmented Neutrophils % 97% (35-66) Band Neutrophils % 1% (0-9) Lymphocytes % 2% (24-48) Platelet Estimate Decreased (ADEQUATE) Anisocytosis Mod Macrocytosis Slight Erythrocyte Sedimentation Rate 78 (0-25) Sodium Level 135mmol/L (136-145) 135mmol/L (136-145) Potassium Level 5.4mmol/L (3.5-5.1) 5.4mmol/L (3.5-5.1) Chloride Level 105mmol/L (98-107) 107mmol/L (98-107) Carbon Dioxide Level 17mmol/L (21-32) 15mmol/L (21-32) Anion Gap 13 (6-14) 13 (6-14) Blood Urea Nitrogen 73mg/dL (7-20) 80mg/dL (7-20) Creatinine 4.0mg/dL (0.6-1.0) 4.1mg/dL (0.6-1.0) Estimated GFR (Cockcroft-Gault) 11.2 10.9 Glucose Level 100mg/dL (70-99) 92mg/dL (70-99) Calcium Level 6.9mg/dL (8.5-10.1) 6.7mg/dL (8.5-10.1) Total Bilirubin 0.6mg/dL (0.2-1.0) 0.6mg/dL (0.2-1.0) Direct Bilirubin 0.2mg/dL (0.0-0.2) Aspartate Amino Transf (AST/SGOT) 74U/L (15-37) 116U/L (15-37) Alanine Aminotransferase (ALT/SGPT) 40U/L (14-59) 49U/L (14-59) Alkaline Phosphatase 82U/L (46-116) 94U/L (46-116) C-Reactive Protein High Sensitivity 129.50mg/L (0.00-3.00) Total Protein 5.0g/dL (6.4-8.2) 4.7g/dL (6.4-8.2) Albumin 2.0g/dL (3.4-5.0) 1.8g/dL (3.4-5.0) Urine Collection Type Unknown Urine Color Shari Urine Clarity Cloudy Urine pH 5.0 Urine Specific [place] 1.020 Urine Protein Negativemg/dL (NEG-TRACE) Urine Glucose (UA) Negativemg/dL (NEG) Urine Ketones (Stick) Negativemg/dL (NEG) Urine Blood Negative (NEG) Urine Nitrite Negative (NEG) Urine Bilirubin Large (NEG) Urine Urobilinogen Dipstick 0.2mg/dL (0.2 mg/dL) Urine Leukocyte Esterase Moderate (NEG) Urine RBC 0/HPF (0-2) Urine WBC 20-40/HPF (0-4) Urine Squamous Epithelial Cells Many/LPF Urine Amorphous Sediment Present/HPF Urine Bacteria Few/HPF (0-FEW) Urine Mucus Marked/LPF Urine Yeast Present/HPF BUN/Creatinine Ratio 20 (6-20) Ionized Calcium 0.94mmol/L (1.13-1.32) Phosphorus Level 7.4mg/dL (2.6-4.7) Magnesium Level 1.9mg/dL (1.8-2.4) Albumin/Globulin Ratio 0.6 (1.0-1.7) Vitamin B12 Level 656pg/mL (247-911) Thyroid Stimulating Hormone (TSH) 4.853uIU/mL (0.358-3.74) Medications Current Medications Acetaminophen (Tylenol) 650 mg 1X ONCE PO Last administered on 12/27/16 09:11 ; Start 12/27/16 at 08:15; Stop 12/27/16 at 08:22; Status DC Diphenhydramine HCl (Benadryl) 25 mg 1X ONCE PO Last administered on 09:12; Start 12/27/16 at 08:15; Stop 12/27/16 at 08:22; Status DC Furosemide (Lasix) 20 mg 1X ONCE IVP ; Start 12/27/16 at 08:15; Stop 12/27/16 at 08:22; Status DC Fentanyl Citrate (Fentanyl 2ml Vial) 25 mcg PRN QID PRN IV PAIN; Start at 16:45; Stop 12/29/16 at 21:00 Lisinopril (Prinivil) 10 mg DAILY PO ; Start 12/28/16 at 09:00; Stop 12/28/16 at 09:00; Status DC Oxycodone/ Acetaminophen (Percocet 5/325) 1 tab Q4HRS PRN PO MODERATE PAIN; Start 12/27/16 at 16:45 Gabapentin (Neurontin) 300 mg TID PO Last administered on 12/27/16 21:58; Start 12/27/16 at 21:00 Cetirizine HCl (Zyrtec) 10 mg PRN DAILY PRN PO ALLERGIES; Start 12/28/16 at 09: 00 Pantoprazole Sodium (Protonix) 40 mg DAILYAC PO Last administered on 12/28/16 06:02; Start 12/28/16 at 07:30 Oxycodone/ Acetaminophen 2 tab 2 tab Q4HRS PRN PO SEVERE PAIN Last administered on 12/28/16 06:02; Start 12/27/16 at 16:45 Sodium Chloride (Iv Sodium Chloride 0.9% 1000ml Bag) 1,000 ml @ 75 mls/hr [id number] IV Last administered on 12/28/16 07:12; Start 12/27/16 at 17:30; Stop 12/28/16 at 08:15; Status DC Piperacillin Sod/ Tazobactam Sod (Zosyn Per Pharmacy) 1 each PRN DAILY PRN MC SEE COMMENTS; Start 12/27/16 at 17:30; Stop 12/28/16 at 07:27; Status DC Vancomycin HCl 1 each 1 each PRN DAILY PRN MC SEE COMMENTS Last administered on 12/27/16 18:45; Start 12/27/16 at 17:30; Stop 12/27/16 at 18:51; Status DC Vancomycin HCl 2 gm/Sodium Chloride 500 ml @ 250 mls/hr 1X ONCE IV ; Start at 17:45; Stop 12/27/16 at 18:51; Status DC Piperacillin Sod/ Tazobactam Sod 3.375 gm/Sodium Chloride 50 ml @ 100 mls/hr 1X ONCE IV Last administered on 12/27/16 18:07; Start 12/27/16 at 18:00; Stop 12/27/16 at 18:29; Status DC Piperacillin Sod/ Tazobactam Sod 2.25 gm/Sodium Chloride 50 ml @ 100 mls/hr Q6HRS IV Last administered on 12/28/16 06:08; Start 12/28/16 at 00:00; Stop at 07:31; Status DC Vancomycin HCl 1.5 gm/Sodium Chloride 500 ml @ 250 mls/hr Q48H IV ; Start 12/29 at 20:00; Stop 12/29/16 at 20:00; Status DC Micafungin Sodium 100 mg/Dextrose 100 ml @ 100 mls/hr Q24H IV Last administered on 12/28/16 08:03; Start 12/28/16 at 08:00 Linezolid 300 ml @ 300 mls/hr Q12HR IV ; Start 12/28/16 at 09:00 Piperacillin Sod/ Tazobactam Sod 2.25 gm/Sodium Chloride 50 ml @ 100 mls/hr Q8HRS IV ; Start 12/28/16 at 14:00 Calcium Chloride 2000 mg/Sodium Chloride 120 ml @ 240 mls/hr 1X ONCE IV Last administered on 12/28/16 08:54; Start 12/28/16 at 08:00; Stop 12/28/16 at 08:29 ; Status DC Magnesium Sulfate/ Dextrose (Magnesium Sulfate PREMIX 2GM) 50 ml @ 25 mls/hr PRN DAILY PRN IV for Mag < 1.7 on am labs; Start 12/28/16 at 08:15 Sodium Bicarbonate 50 meq 50 meq Q2H IV ; Start 12/28/16 at 08:30; Stop at 10:31; Status DC Sodium Chloride 500 ml @ 0 mls/hr PRN QID PRN IV UO< 30cc/hr over previous 6hrs ; Start 12/28/16 at 08:15 Sodium Bicarbonate/ Dextrose 1,150 ml @ 100 mls/hr [id number] IV ; Start 12/28/16 at 09:00 Heparin Sodium (Porcine) (Heparin Sodium) 10,000 unit STK-MED ONCE .ROUTE ; Start 12/28/16 at 08:46; Stop 12/28/16 at 08:47; Status DC Lidocaine/Sodium Bicarbonate 20 ml 20 ml STK-MED ONCE IJ ; Start 12/28/16 at 08: 47; Stop 12/28/16 at 08:48; Status DC Heparin Sodium/ Sodium Chloride 500 ml @ As Directed STK-MED ONCE .ROUTE ; Start 12/28/16 at 08:47; Stop 12/28/16 at 08:48; Status DC Lidocaine/Sodium Bicarbonate (Buffered Lidocaine 1%) 3 ml 1X ONCE IJ Last administered on 12/28/16 10:10; Start 12/28/16 at 09:00; Stop 12/28/16 at 09:01 ; Status DC Heparin Sodium/ Sodium Chloride 60 unit 1X ONCE IV Last administered on 10:11; Start 12/28/16 at 09:00; Stop 12/28/16 at 09:01; Status DC Heparin Sodium (Porcine) (Heparin Sodium) 2,500 unit 1X ONCE INT CAT Last administered on 12/28/16 10:10; Start 12/28/16 at 09:00; Stop 12/28/16 at 09:01 ; Status DC Midazolam HCl (Versed) 2 mg STK-MED ONCE .ROUTE ; Start 12/28/16 at 09:41; Stop 12/28/16 at 09:42; Status DC Active Scripts Active Reported Claritin (Loratadine) 10 Mg Tablet 1 Tab PO DAILY PRN Bactrim 400-80 Mg Tablet (Sulfamethoxazole/Trimethoprim) 1 Each Tablet 1 Tab PO BID Gabapentin 300 Mg Capsule 300 Mg PO TID Zestril (Lisinopril) 10 Mg Tablet 10 Mg PO DAILY Cyanocobalamin Injection (Cyanocobalamin (Vitamin B-12)) 1,000 Mcg/1 Ml Vial 1, 000 Mcg QMONTH Percocet 5-325 Mg Tablet (Oxycodone/Acetaminophen) 1 Each Tablet 1-2 Tab PO Q4- 6HRS Prilosec Otc (Omeprazole Magnesium) 20 Mg Tablet.dr 20 Mg PO DAILY Vitals/I & O Vital Sign - Last 24 Hours 12/27/16 12/27/16 12/27/16 12/27/16 11:05 11:28 12:25 13:06 Temp 98.8 97.8 97.8 98.1 98.8 97.8 97.8 98.1 Pulse 70 82 64 69 Resp 20 20 20 20 B/P 107/49 77/50 100/53 91/50 12/27/16 12/27/16 12/27/16 12/27/16 14:40 15:02 16:00 16:30 Temp 97.8 97.6 98.1 97.8 97.6 98.1 Pulse 67 58 69 Resp 20 20 20 B/P 91/54 117/53 112/73 O2 Delivery Room Air 12/27/16 12/27/16 12/27/16 12/27/16 17:23 17:42 17:49 18:15 Temp 98.1 98.1 97.8 98.1 98.1 97.8 Pulse 85 85 86 Resp 20 18 20 B/P 93/32 92/32 104/39 Pulse Ox 93 91 O2 Delivery Room Air Room Air Room Air 12/27/16 12/27/16 12/27/16 12/28/16 18:23 20:00 23:00 03:00 Temp 99.1 98.5 99.1 98.5 Pulse 84 93 Resp 18 18 B/P 95/33 126/50 Pulse Ox 94 93 O2 Delivery Room Air Room Air Room Air Room Air 12/28/16 12/28/16 12/28/16 06:02 07:00 07:15 Temp 99.0 99.0 Pulse 90 Resp 18 B/P 145/120 150/117 Pulse Ox 93 93 O2 Delivery Room Air Room Air Room Air Intake and Output 12/27/16 12/27/16 12/28/16 15:00 23:00 07:00 Intake Total 875 ml 0 ml Output Total 400 ml Balance 875 ml -400 ml SERGEY KNOWLES MD Dec 28, 2016 10:33
[2016-12-28] MEDS: GABAPENTIN 300 MG CAPSULE. PO SCH ×2 (10:44→14:00)
[2016-12-28 11:00] VITALS: BP 93/30
[2016-12-28] MEDS: SODIUM BICARBONATE VIAL 150 MEQ in IV DEXTROSE 5% 1,000 ML IV SCH ×2 (11:14→15:29)
--- NOTE | 2016-12-28 11:29 | RAD ---
Bilateral lower extremity venous ultrasound, 12/28/2016: History: Leg edema and pain Duplex evaluation of the deep veins in the lower extremities was performed including grayscale, color-flow and spectral Doppler analysis. The femoral and popliteal veins demonstrate normal compressibility and normal responses to distal augmentation maneuvers. Color imaging of those vessels shows no evidence of intraluminal clot. The visualized deep veins in both calves are patent. IMPRESSION: There is no sonographic evidence of deep vein thrombosis in either lower extremity.
[2016-12-28] MEDS ORDERED: SALIVA STIMULANT AGENT 44ML SPRAY BOTTLE. PO PRN (13:15)
[2016-12-28] MEDS: SODIUM BICARB ADULT 8.4% 50 MEQ/50 ML DISP.SYRIN. IV SCH ×2 (15:30→15:33)
[2016-12-28] MEDS: ACETAMINOPHEN 325 MG TABLET. PO PRN (18:16)
[2016-12-28 19:52] VITALS: BP 101/40
--- NOTE | 2016-12-28 23:11 | CONS ---
DATE OF CONSULTATION: PRIMARY PHYSICIAN: Dr. Rivera. CONSULTING PHYSICIAN: Dr. Thacker. HISTORY OF PRESENT ILLNESS: The patient is a 66-year-old female who apparently is known to have a history of cholangiocarcinoma, follows with Dr. Connell as well as at [facility] in the past. She is known to have a normal baseline creatinine as recently as 11/26/16 and a creatinine of 1.1. This has been gradually trending upwards. She has also had edema for about a month and has been on Lasix for the same. She presented to the outpatient for blood work and was noted to be bradycardic and was found to have possible weakness and rigors and then there was also noted some diffuse redness of both lower extremities. She had chattering chills. She apparently gets chemotherapy with Gemzar and Xeloda. In this setting, she was admitted to the hospital for further evaluation and I was called this morning by Dr. Thacker since the patient was felt to have worsening mental status changes as well as some myoclonic jerks. In this setting, she was also noted to have a creatinine of 4 with significant oliguria and we were asked to see her. 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 FAMILY HISTORY: Negative for known kidney problems. SOCIAL HISTORY: The patient is . For rest of the details, please see electronic records. DAKOTA VINCENT MD DR: RANULFO/bonnie JOB#: [id number] / [id number]
[2016-12-28 23:12] VITALS: BP 116/54
[2016-12-29] VITALS (8 sets, daily range): BP systolic 81–140; BP diastolic 36–62
[2016-12-29 00:09] LABS: HEP B SURFACE ABDY Non Reactive (.)
--- NOTE | 2016-12-29 00:25 | CONS ---
DATE OF CONSULTATION: 12/28/2016 REQUESTING PHYSICIAN: Dr. Lorraine Rivera. REASON FOR CONSULTATION: Cholangiocarcinoma on chemotherapy. HISTORY OF PRESENT ILLNESS: The patient is a 66-year-old female who was diagnosed with cholangiocarcinoma in 06/2015. She underwent liver wedge resection on 07/04/2015 that revealed poorly differentiated adenocarcinoma with metastasis due to hilar lymph nodes. She subsequently underwent adjuvant chemotherapy with Gemzar and cisplatin from 08/28/2015. She completed 8 cycles of chemotherapy on 02/13/2016. CT scan on 09/21/2016 revealed worsening left gastric lymph node and periportal lymph node and hence chemotherapy with Gemzar and Xeloda was initiated on 10/08/2016. She received cycle #3, day #15 of treatment on 12/24/2016. She was noted to have anemia with a hemoglobin of 7.5 on 12/24/2016. She was getting blood transfusion on 12/27/2016. She was noted to have profound weakness and hence she was admitted to the hospital on 12/27/2016. She was noted to have renal failure with a creatinine of 4.0 and a BUN of 73 and she also had hypocalcemia with calcium level of 6.9. She also had chills and worsening pedal edema. She was evaluated by Infectious Disease and Nephrology. She was started on antibiotics and Nephrology plans to do hemodialysis. I was asked to see the patient for further evaluation of malignancy. PAST MEDICAL HISTORY: 1. DCIS of the left breast. 2. Iron deficiency anemia. FAMILY HISTORY: Negative for liver cancer. SOCIAL HISTORY: She is , no smoking or alcohol abuse. REVIEW OF SYSTEMS: A 12-point review of system was performed. Pertinent positives are mentioned in the history of present illness. Rest of the system review is negative. PHYSICAL EXAMINATION: GENERAL APPEARANCE: The patient is a 66-year-old female who is in no acute cardiorespiratory distress. VITAL SIGNS: Blood pressure is 93/30, temperature 97.7. HEENT: Head: Atraumatic, normocephalic. Eyes: No icterus. NECK: Supple. CHEST: Bilaterally symmetrical. HEART: S1, S2 normal. ABDOMEN: Soft, nontender. CENTRAL NERVOUS SYSTEM: No focal deficits. LYMPHATICS: No lymphadenopathy. SKIN: No rashes. PSYCHOLOGIC: Mood and affect are appropriate. MUSCULOSKELETAL: No joint effusions. LABORATORY DATA: WBC 5.5, hemoglobin 8.6, platelet count 97 on 12/28/2016, creatinine of 4.1, BUN 80, potassium 5.4, calcium 6.7, albumin 1.8, total protein 4.7. IMPRESSION AND PLAN: 1. Cholangiocarcinoma stage 4. She is on chemotherapy with Gemzar and Xeloda, her last treatment was given on 12/24/2016. I will hold further chemotherapy in view of cellulitis and she will follow up with me upon discharge. I will also plan for a PET scan as outpatient. 2. Acute renal failure, I discussed with Dr. Kerr plan hemodialysis temporarily. 3. Hypocalcemia. She is getting IV calcium. 4. Hypoalbuminemia due to malnutrition from malignancy. 5. Cellulitis. I discussed with Dr. Óscar Thacker. She was started on antibiotics for cellulitis of bilateral lower extremities. She had a venous Doppler of bilateral lower extremities on 12/28/2016 that is negative for DVT. LETICIA TREVINO MD DR: RAGHAV/bonnie JOB#: [id number] / [id number]
[2016-12-29] MEDS: ACETAMINOPHEN 325 MG TABLET. PO PRN (03:05)
--- NOTE | 2016-12-29 04:54 | CONS ---
DATE OF CONSULTATION: 12/28/2016 PATIENT'S ROOM: 426 REQUESTING PHYSICIAN: Dr. Rivera. REASON FOR CONSULTATION: Questionable cellulitis. 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 She was admitted mid 11/2015 with cellulitis and pneumonia and was treated and had done fairly well, but she states she was admitted to out of concerns for recurrent cellulitis of her lower extremities. She states at that time, she was told she had more of a bursitis; however, she is having a hard time remembering words and then stated that she did not have an infection and was discharged home without any antibiotics. She states she received chemotherapy this past Tuesday and then on Tuesday, she began to have some discomfort and weakness. On Tuesday, she had difficulty walking on her right leg as it became more painful. She followed up for a scheduled transfusion and then subsequently was admitted secondary to concerns of redness of her lower extremities. Her hemoglobin on the was 7.6. She was admitted to the hospital and placed on vancomycin and Zosyn. Her creatinine subsequently has returned to be 4 with a baseline of 1 on 11/26/2016. Because of the cellulitis, I have been consulted. Currently, the patient is lying in bed. States she does have some right lower extremity leg pain. She thought she has some subjective chills and sweats at home. She has no headache, but then again she is having trouble trying to find her words. No sinus issues, sore throat or cough or chest pain. She does report she has some mild nausea, but no diarrhea. States her urine was dark and does have some twitches. 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 PAST SURGICAL HISTORY: Positive for gastric bypass surgery, total abdominal hysterectomy, bilateral salpingo-oophorectomy, left lumpectomy, hernia repair, liver surgery as well as a Port-A-Cath placement and open cholecystectomy. REVIEW OF SYSTEMS: Otherwise negative except as mentioned above. ALLERGIES: No known drug allergies. SOCIAL HISTORY: No tobacco, alcohol or drug use. She is . FAMILY HISTORY: Noncontributory. CURRENT MEDICATIONS: She received vancomycin, Zosyn, Zyrtec, Benadryl, fentanyl, Lasix, Neurontin, Prinivil. Other meds are available and have been reviewed in the chart. PHYSICAL EXAMINATION: VITAL SIGNS: T-max 99.1, currently 98.5; pulse 93; respirations 16; blood pressure 126/50; satting 93% on room air. CONSTITUTIONAL: She is pleasant. She is cooperative, but she does get confused at times. She does have some occasional twitching. HEENT: Pupils equal and reactive. Oral cavity, pharynx is clear. NECK: Supple, no JVD. LUNGS: Clear to auscultation. HEART: S1, S2. She has a Port-A-Cath in the right chest without signs of complications. ABDOMEN: Obese, soft, nontender, nondistended, with positive bowel sounds. EXTREMITIES: Her right lower extremity has 2+ edema. There is erythema from the tip of the toes up to the top of her knee, but it is more intense on the back. She has a small superficial wound in the lower third of her back, leg. It is tender to touch, but there is no drainage or fluctuance. She also has some yeast. Left lower extremity has some mild erythema, but nontender. SKIN: Otherwise, warm without signs of rash. PSYCHIATRIC: Affect is appropriate. LABORATORY DATA: White count today 5.5, hemoglobin 8.6, platelets of 97, neutrophils were 93. Sed rate is 78. Creatinine this morning is 4.1, ionized calcium of 0.96, AST 116, albumin 1.8. TSH 4.853. Urinalysis with a few bacteria, many squamous cells. Chest x-ray by my eye did not have any acute process. IMPRESSION: 1. Right lower extremity cellulitis. 2. Acute kidney injury. 3. Mild encephalopathy, questionable secondary to electrolyte disturbance, low calcium, questionable mets. 4. Cholangiocarcinoma, status post chemo on 12/24/2016. RECOMMENDATIONS: We will discontinue the vancomycin. We are going to obtain a stat mag and phos. Dose ____ calcium chloride x 1. Begin Zyvox, adjust the Zosyn, begin micafungin. Await renal eval. Discussed with Dr. Kerr. May need CT scan of the head if encephalopathy and twitch does not resolve with renal treatment. Thank you for allowing me to participate in this patient's care. If you have any questions, please do not hesitate to contact me. RAHEEM TY MD DR: JUANA/bonnie JOB#: [id number] / [id number]
[2016-12-29 05:38] LABS: BASO % 0 % (0-3); EOS % 1 % (0-3); HEMATOCRIT 23.4 % (36.0-47.0); HEMOGLOBIN 8.2 g/dL (12.0-15.5); LYMPH # 0.2 x10^3/uL (1.0-4.8); LYMPH % 10 % (24-48); MEAN CORPUSCULAR HEMOGLOBIN 34 pg (25-35); MEAN CORPUSCULAR HGB CONC 35 g/dL (31-37); MEAN CORPUSCULAR VOLUME 96 fL (79-100); MONO % 0 % (0-9); NEUT % 89 % (31-73); PLATELET COUNT 38 x10^3/uL (140-400); RED BLOOD COUNT 2.44 x10^6/uL (3.50-5.40); RED CELL DISTRIBUTION WIDTH 23.1 % (11.5-14.5)
[2016-12-29] MEDS: SODIUM BICARBONATE VIAL 150 MEQ in IV DEXTROSE 5% 1,000 ML IV SCH ×2 (06:03→20:25)
[2016-12-29] MEDS: PIPERACILLIN/TAZOBACTAM 2.25 GM in IV NORMAL SALINE 50ML 50 ML IV SCH ×3 (06:03→22:18)
[2016-12-29] MEDS: PANTOPRAZOLE 40 MG TABLET.DR. PO SCH (06:04)
[2016-12-29 06:06] LABS: MAGNESIUM 1.6 mg/dL (1.8-2.4)
[2016-12-29] MEDS: oxyCODONE/APAP 5/325 1 TAB TABLET PO PRN ×2 (08:05→20:26)
--- NOTE | 2016-12-29 08:53 | PDOC ---
Infectious Disease Note Subjective Subjective Some better. Less pain still twitching. more aware Occ blurring of vision ROS ROS GEN: Denies fevers, chills, sweats HEENT: Denies blurred vision, sore throat CV: Denies chest pain RESP: Denies shortness of air, cough GI: Denies n/v/d NEURO: Denies confusion, dizziness MSK: Denies weakness, joint pain/swelling Vital Sign Vital Signs Vital Signs Date Time Temp Pulse Resp B/P Pulse Ox O2 Delivery O2 Flow Rate FiO2 12/29/16 08:05 16 Room Air 12/29/16 07:00 98.5 78 99/45 93 98.5 Physical Exam PHYSICAL EXAM GENERAL: NAD, Alert HEENT: PERRL, OC/OP - clear NECK: Supple, no JVD, no LN LUNGS: Clear HEART: S1S2, no gallop, no murmur ABD: Soft, NT, no organomegaly, no rebound, obese EXT: RLE less erythema/pain and edema, Wound clean. no cyanosis. 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, still some twitching SKIN: No rash IV: Left IJ HD and right port Labs Lab Laboratory Tests Test 12/28/16 10:50 12/29/16 05:20 Lactate Dehydrogenase 503U/L (81-234) Hepatitis B Surface Antigen Negative (Negative) Hepatitis B Surface Antibody Non reactive (.) Hepatitis B Core Total Antibody Negative (Negative) White Blood Count 2.0x10^3/uL (4.0-11.0) Red Blood Count 2.44x10^6/uL (3.50-5.40) Hemoglobin 8.2g/dL (12.0-15.5) Hematocrit 23.4% (36.0-47.0) Mean Corpuscular Volume 96fL (79-100) Mean Corpuscular Hemoglobin 34pg (25-35) Mean Corpuscular Hemoglobin Concent 35g/dL (31-37) Red Cell Distribution Width 23.1% (11.5-14.5) Platelet Count 38x10^3/uL (140-400) Neutrophils (%) (Auto) 89% (31-73) Lymphocytes (%) (Auto) 10% (24-48) Monocytes (%) (Auto) 0% (0-9) Eosinophils (%) (Auto) 1% (0-3) Basophils (%) (Auto) 0% (0-3) Neutrophils # (Auto) 1.8x10^3uL (1.8-7.7) Lymphocytes # (Auto) 0.2x10^3/uL (1.0-4.8) Monocytes # (Auto) 0.0x10^3/uL (0.0-1.1) Eosinophils # (Auto) 0.0x10^3/uL (0.0-0.7) Basophils # (Auto) 0.0x10^3/uL (0.0-0.2) Sodium Level 139mmol/L (136-145) Potassium Level 4.0mmol/L (3.5-5.1) Chloride Level 103mmol/L (98-107) Carbon Dioxide Level 28mmol/L (21-32) Anion Gap 8 (6-14) Blood Urea Nitrogen 55mg/dL (7-20) Creatinine 3.3mg/dL (0.6-1.0) Estimated GFR (Cockcroft-Gault) 13.9 Glucose Level 115mg/dL (70-99) Calcium Level 6.6mg/dL (8.5-10.1) Magnesium Level 1.6mg/dL (1.8-2.4) Creatine Kinase 72U/L (26-192) Objective Assessment Right LE cellulitis - better ARTURO s/p HD Pancytopenia mild encephalopathy - improved but twitch continues? electrolyte disturbance, ? met Cholangiocarcinoma s/p chemo 12/24 Plan Plan of Care Cont Zyvox/Zosyn/Micafungin for now [facility] Renal eval - d/w Dr. Kerr May need CT head if encephalopathy/twitch does not resolve with renal treatment F/u labs D/w family D/w RAHEEM Nugent MD Dec 29, 2016 08:53
--- NOTE | 2016-12-29 09:28 | PDOC ---
Subjective: Subjective: Onc f/u- Cholangio Pt still with twitching after HD yesterday, going again today. LE edema unchanged. Redness, tenderness unchanged. Son, present. Objective: Vital Signs: Vital Signs Date Time Temp Pulse Resp B/P Pulse Ox O2 Delivery O2 Flow Rate FiO2 12/29/16 08:05 16 Room Air 12/29/16 07:00 98.5 78 99/45 93 98.5 Physical Exam: Extremities: Other (2+ edema bilaterl LE edema throughout LE (previously below knee last admit)) General: Alert, No acute distress Lungs: Other (no resp distress) Neuro: Other (involunatry twitching of right UE and LE) Psych/Mental Status: Mental status NL, Mood NL Skin: Other (brown nodule right lateral ankle, erythema in lower extremities) Labs/Imaging: Cr decreasing CBC trending down Reviewed records from recent admit last week Assessment/Plan A/P: 1. Cholangiocarcinoma stage IV. She has been stable on chemotherapy with Gemzar and Xeloda for some time, last gemzar 12/24. - Has followed at [facility], so no imaging with us for a while. Planning PET as outpt - ? if gemzar could be cause of recurrent and new sx. <10% risk of renal failure, 20% edema, 15% infection, 30% skin rash (though clinically seems less than this). - Treatment on hold until clinically improves. 2. Acute kidney failure- Received HD yesterday, again today - Gemzar renally cleared 3. Recurrent LE edema, rash. At last week was thought to be c/w gemzar- related LE swelling/ capillary leak causing erythema, no signs infxn. Treating empirically now with abx. ?if the erythema itself is also gemzar related. 4. Cytopenias- gemzar related - Transfuse for hgb < 7, plt < 10 - Previous admit had fevers that were unclear if related to granix, will hold as long as ANC remains reasonable 5. Twitching, hopefully improves with HD 30 min spent with pt, , son and in d/w Dr. Casas, reviewing records. ИВАН HENDRICKS DO Dec 29, 2016 09:28
--- NOTE | 2016-12-29 10:12 | PDOC ---
Dialysis Progress Note Dialysis Note Dialysis Note Seen on Hemodialysis, tolerating treatment Okay for now Vitals on Hemodialysis: 117/51 80 afeb General Appearance: Awake: Alert Oriented x 3 Neck: No JVD or JVP Chest: CTA Massimo Heart: S1 S2 Abdomen - Soft NTND Extremities - No Edema ARF/ ATN : Dialysis as below F 180 NR 3.5 Hrs 3 K 3.5 Ca 140 Na 35 HC03 Qb 350 + Qd 500+ Heparin Units Uf 0 - 1 Kgs or to dry weight as tolerated May give 25-50 gms of 25% Albumin if needed to maintain Hemodynamic stability Treatment plan reviewed and discussed with gathering machine setter Vitals Vital Signs Vital Signs Date Time Temp Pulse Resp B/P Pulse Ox O2 Delivery O2 Flow Rate FiO2 12/29/16 08:05 16 Room Air 12/29/16 07:00 98.5 78 99/45 93 98.5 Labs Last Labs Laboratory Tests Test 12/27/16 18:00 12/27/16 22:00 12/28/16 05:45 12/28/16 10:50 White Blood Count 7.8x10^3/uL (4.0-11.0) 5.5x10^3/uL (4.0-11.0) Red Blood Count 2.77x10^6/uL (3.50-5.40) 2.56x10^6/uL (3.50-5.40) Hemoglobin 9.1g/dL (12.0-15.5) 8.6g/dL (12.0-15.5) Hematocrit 27.4% (36.0-47.0) 25.1% (36.0-47.0) Mean Corpuscular Volume 99fL (79-100) 98fL (79-100) Mean Corpuscular Hemoglobin 33pg (25-35) 33pg (25-35) Mean Corpuscular Hemoglobin Concent 33g/dL (31-37) 34g/dL (31-37) Red Cell Distribution Width 24.1% (11.5-14.5) 24.1% (11.5-14.5) Platelet Count 114x10^3/uL (140-400) 97x10^3/uL (140-400) Neutrophils (%) (Auto) 97% (31-73) 96% (31-73) Lymphocytes (%) (Auto) 2% (24-48) 3% (24-48) Monocytes (%) (Auto) 0% (0-9) 1% (0-9) Eosinophils (%) (Auto) 0% (0-3) 0% (0-3) Basophils (%) (Auto) 0% (0-3) 0% (0-3) Neutrophils # (Auto) 7.5x10^3uL (1.8-7.7) 5.3x10^3uL (1.8-7.7) Lymphocytes # (Auto) 0.2x10^3/uL (1.0-4.8) 0.2x10^3/uL (1.0-4.8) Monocytes # (Auto) 0.0x10^3/uL (0.0-1.1) 0.0x10^3/uL (0.0-1.1) Eosinophils # (Auto) 0.0x10^3/uL (0.0-0.7) 0.0x10^3/uL (0.0-0.7) Basophils # (Auto) 0.0x10^3/uL (0.0-0.2) 0.0x10^3/uL (0.0-0.2) Segmented Neutrophils % 97% (35-66) Band Neutrophils % 1% (0-9) Lymphocytes % 2% (24-48) Platelet Estimate Decreased (ADEQUATE) Anisocytosis Mod Macrocytosis Slight Erythrocyte Sedimentation Rate 78 (0-25) Sodium Level 135mmol/L (136-145) 135mmol/L (136-145) Potassium Level 5.4mmol/L (3.5-5.1) 5.4mmol/L (3.5-5.1) Chloride Level 105mmol/L (98-107) 107mmol/L (98-107) Carbon Dioxide Level 17mmol/L (21-32) 15mmol/L (21-32) Anion Gap 13 (6-14) 13 (6-14) Blood Urea Nitrogen 73mg/dL (7-20) 80mg/dL (7-20) Creatinine 4.0mg/dL (0.6-1.0) 4.1mg/dL (0.6-1.0) Estimated GFR (Cockcroft-Gault) 11.2 10.9 Glucose Level 100mg/dL (70-99) 92mg/dL (70-99) Calcium Level 6.9mg/dL (8.5-10.1) 6.7mg/dL (8.5-10.1) Total Bilirubin 0.6mg/dL (0.2-1.0) 0.6mg/dL (0.2-1.0) Direct Bilirubin 0.2mg/dL (0.0-0.2) Aspartate Amino Transf (AST/SGOT) 74U/L (15-37) 116U/L (15-37) Alanine Aminotransferase (ALT/SGPT) 40U/L (14-59) 49U/L (14-59) Alkaline Phosphatase 82U/L (46-116) 94U/L (46-116) C-Reactive Protein High Sensitivity 129.50mg/L (0.00-3.00) Total Protein 5.0g/dL (6.4-8.2) 4.7g/dL (6.4-8.2) Albumin 2.0g/dL (3.4-5.0) 1.8g/dL (3.4-5.0) Urine Collection Type Unknown Urine Color Shari Urine Clarity Cloudy Urine pH 5.0 Urine Specific [place] 1.020 Urine Protein Negativemg/dL (NEG-TRACE) Urine Glucose (UA) Negativemg/dL (NEG) Urine Ketones (Stick) Negativemg/dL (NEG) Urine Blood Negative (NEG) Urine Nitrite Negative (NEG) Urine Bilirubin Large (NEG) Urine Urobilinogen Dipstick 0.2mg/dL (0.2 mg/dL) Urine Leukocyte Esterase Moderate (NEG) Urine RBC 0/HPF (0-2) Urine WBC 20-40/HPF (0-4) Urine Squamous Epithelial Cells Many/LPF Urine Amorphous Sediment Present/HPF Urine Bacteria Few/HPF (0-FEW) Urine Mucus Marked/LPF Urine Yeast Present/HPF Urine Random Creatinine 191.7mg/dL (Not Estab.) BUN/Creatinine Ratio 20 (6-20) Ionized Calcium 0.94mmol/L (1.13-1.32) Phosphorus Level 7.4mg/dL (2.6-4.7) Magnesium Level 1.9mg/dL (1.8-2.4) Albumin/Globulin Ratio 0.6 (1.0-1.7) Vitamin B12 Level 656pg/mL (247-911) Thyroid Stimulating Hormone (TSH) 4.853uIU/mL (0.358-3.74) Lactate Dehydrogenase 503U/L (81-234) Hepatitis B Surface Antigen Negative (Negative) Hepatitis B Surface Antibody Non reactive (.) Hepatitis B Core Total Antibody Negative (Negative) Test 12/29/16 05:20 White Blood Count 2.0x10^3/uL (4.0-11.0) Red Blood Count 2.44x10^6/uL (3.50-5.40) Hemoglobin 8.2g/dL (12.0-15.5) Hematocrit 23.4% (36.0-47.0) Mean Corpuscular Volume 96fL (79-100) Mean Corpuscular Hemoglobin 34pg (25-35) Mean Corpuscular Hemoglobin Concent 35g/dL (31-37) Red Cell Distribution Width 23.1% (11.5-14.5) Platelet Count 38x10^3/uL (140-400) Neutrophils (%) (Auto) 89% (31-73) Lymphocytes (%) (Auto) 10% (24-48) Monocytes (%) (Auto) 0% (0-9) Eosinophils (%) (Auto) 1% (0-3) Basophils (%) (Auto) 0% (0-3) Neutrophils # (Auto) 1.8x10^3uL (1.8-7.7) Lymphocytes # (Auto) 0.2x10^3/uL (1.0-4.8) Monocytes # (Auto) 0.0x10^3/uL (0.0-1.1) Eosinophils # (Auto) 0.0x10^3/uL (0.0-0.7) Basophils # (Auto) 0.0x10^3/uL (0.0-0.2) Sodium Level 139mmol/L (136-145) Potassium Level 4.0mmol/L (3.5-5.1) Chloride Level 103mmol/L (98-107) Carbon Dioxide Level 28mmol/L (21-32) Anion Gap 8 (6-14) Blood Urea Nitrogen 55mg/dL (7-20) Creatinine 3.3mg/dL (0.6-1.0) Estimated GFR (Cockcroft-Gault) 13.9 Glucose Level 115mg/dL (70-99) Calcium Level 6.6mg/dL (8.5-10.1) Magnesium Level 1.6mg/dL (1.8-2.4) Creatine Kinase 72U/L (26-192) Laboratory Tests Test 12/28/16 10:50 12/29/16 05:20 Lactate Dehydrogenase 503U/L (81-234) Hepatitis B Surface Antigen Negative (Negative) Hepatitis B Surface Antibody Non reactive (.) Hepatitis B Core Total Antibody Negative (Negative) White Blood Count 2.0x10^3/uL (4.0-11.0) Red Blood Count 2.44x10^6/uL (3.50-5.40) Hemoglobin 8.2g/dL (12.0-15.5) Hematocrit 23.4% (36.0-47.0) Mean Corpuscular Volume 96fL (79-100) Mean Corpuscular Hemoglobin 34pg (25-35) Mean Corpuscular Hemoglobin Concent 35g/dL (31-37) Red Cell Distribution Width 23.1% (11.5-14.5) Platelet Count 38x10^3/uL (140-400) Neutrophils (%) (Auto) 89% (31-73) Lymphocytes (%) (Auto) 10% (24-48) Monocytes (%) (Auto) 0% (0-9) Eosinophils (%) (Auto) 1% (0-3) Basophils (%) (Auto) 0% (0-3) Neutrophils # (Auto) 1.8x10^3uL (1.8-7.7) Lymphocytes # (Auto) 0.2x10^3/uL (1.0-4.8) Monocytes # (Auto) 0.0x10^3/uL (0.0-1.1) Eosinophils # (Auto) 0.0x10^3/uL (0.0-0.7) Basophils # (Auto) 0.0x10^3/uL (0.0-0.2) Sodium Level 139mmol/L (136-145) Potassium Level 4.0mmol/L (3.5-5.1) Chloride Level 103mmol/L (98-107) Carbon Dioxide Level 28mmol/L (21-32) Anion Gap 8 (6-14) Blood Urea Nitrogen 55mg/dL (7-20) Creatinine 3.3mg/dL (0.6-1.0) Estimated GFR (Cockcroft-Gault) 13.9 Glucose Level 115mg/dL (70-99) Calcium Level 6.6mg/dL (8.5-10.1) Magnesium Level 1.6mg/dL (1.8-2.4) Creatine Kinase 72U/L (26-192) Assessment Assessment Problems Medical Problems: (1) Cellulitis Status: Acute Problems: Plan Plan of Care Problems Medical Problems: (1) Cellulitis Status: Acute DAKOTA VINCENT MD Dec 29, 2016 10:12
[2016-12-29] MEDS ORDERED: ONDANSETRON PF 4 MG/2 ML VIAL. IV PRN (10:45)
[2016-12-29 11:03] LABS: ALBUMIN 1.7 g/dL (3.4-5.0); PHOSPHORUS 6.2 mg/dL (2.6-4.7)
[2016-12-29 11:04] LABS: CALCIUM 6.6 mg/dL (8.5-10.1); CREATININE 3.3 mg/dL (0.6-1.0); GFR 13.9
--- NOTE | 2016-12-29 13:37 | PDOC ---
PROGRESS NOTES Chief Complaint Chief Complaint acute metabolic encephalopathy, 2/2 ARTURO likely cellulitis BLE, diffuse, Acute renal failure, ATN hyperkalemia, gap metabolic acidosis, uremia GERD peripheral neuropathy cholangiocarcinoma STAGE 4 obesity hypomagnesemia pancytopenia 2/2 chemo likely N/V, diarrhea severe malnutrition plan: fu with renal, onco, id on multiple abx cont HD now ptot monitor urine output gi ppx check cdiff History of Present Illness History of Present Illness feels N/V and diarrhea today low urine output 500mls 12 hours, and dark despite IV fluids HD 12/28, 12/29, 12/30 Vitals Vitals Vital Signs Date Time Temp Pulse Resp B/P Pulse Ox O2 Delivery O2 Flow Rate FiO2 12/29/16 09:15 18 Room Air 12/29/16 07:00 98.5 78 99/45 93 98.5 Physical Exam General: Alert, No acute distress Heart: Normal S1, Gallops Lungs: Clear, Crackles, Other Abdomen: Normal bowel sounds, Soft, No tenderness Extremities: Other (2+ edema bilaterl LE edema throughout LE (previously below knee last admit), bl leg erythema, right worse than left side) Skin: Other (brown nodule right lateral ankle, erythema in lower extremities) Labs LABS Laboratory Tests Test 12/29/16 05:20 White Blood Count 2.0x10^3/uL (4.0-11.0) Red Blood Count 2.44x10^6/uL (3.50-5.40) Hemoglobin 8.2g/dL (12.0-15.5) Hematocrit 23.4% (36.0-47.0) Mean Corpuscular Volume 96fL (79-100) Mean Corpuscular Hemoglobin 34pg (25-35) Mean Corpuscular Hemoglobin Concent 35g/dL (31-37) Red Cell Distribution Width 23.1% (11.5-14.5) Platelet Count 38x10^3/uL (140-400) Neutrophils (%) (Auto) 89% (31-73) Lymphocytes (%) (Auto) 10% (24-48) Monocytes (%) (Auto) 0% (0-9) Eosinophils (%) (Auto) 1% (0-3) Basophils (%) (Auto) 0% (0-3) Neutrophils # (Auto) 1.8x10^3uL (1.8-7.7) Lymphocytes # (Auto) 0.2x10^3/uL (1.0-4.8) Monocytes # (Auto) 0.0x10^3/uL (0.0-1.1) Eosinophils # (Auto) 0.0x10^3/uL (0.0-0.7) Basophils # (Auto) 0.0x10^3/uL (0.0-0.2) Sodium Level 139mmol/L (136-145) Potassium Level 4.0mmol/L (3.5-5.1) Chloride Level 103mmol/L (98-107) Carbon Dioxide Level 28mmol/L (21-32) Anion Gap 8 (6-14) Blood Urea Nitrogen 55mg/dL (7-20) Creatinine 3.3mg/dL (0.6-1.0) Estimated GFR (Cockcroft-Gault) 13.9 Glucose Level 115mg/dL (70-99) Calcium Level 6.6mg/dL (8.5-10.1) Phosphorus Level 6.2mg/dL (2.6-4.7) Magnesium Level 1.6mg/dL (1.8-2.4) Creatine Kinase 72U/L (26-192) Albumin 1.7g/dL (3.4-5.0) Review of Systems Review of Systems no fever, chills, sob or chest pain Assessment and Plan Assessmemt and Plan Problems Medical Problems: (1) Cellulitis Status: Acute Problems: Comment Review of Relevant I have reviewed the following items ketty (where applicable) has been applied. Labs Laboratory Tests Test 12/27/16 18:00 12/27/16 22:00 12/28/16 05:45 12/28/16 10:50 White Blood Count 7.8x10^3/uL (4.0-11.0) 5.5x10^3/uL (4.0-11.0) Red Blood Count 2.77x10^6/uL (3.50-5.40) 2.56x10^6/uL (3.50-5.40) Hemoglobin 9.1g/dL (12.0-15.5) 8.6g/dL (12.0-15.5) Hematocrit 27.4% (36.0-47.0) 25.1% (36.0-47.0) Mean Corpuscular Volume 99fL (79-100) 98fL (79-100) Mean Corpuscular Hemoglobin 33pg (25-35) 33pg (25-35) Mean Corpuscular Hemoglobin Concent 33g/dL (31-37) 34g/dL (31-37) Red Cell Distribution Width 24.1% (11.5-14.5) 24.1% (11.5-14.5) Platelet Count 114x10^3/uL (140-400) 97x10^3/uL (140-400) Neutrophils (%) (Auto) 97% (31-73) 96% (31-73) Lymphocytes (%) (Auto) 2% (24-48) 3% (24-48) Monocytes (%) (Auto) 0% (0-9) 1% (0-9) Eosinophils (%) (Auto) 0% (0-3) 0% (0-3) Basophils (%) (Auto) 0% (0-3) 0% (0-3) Neutrophils # (Auto) 7.5x10^3uL (1.8-7.7) 5.3x10^3uL (1.8-7.7) Lymphocytes # (Auto) 0.2x10^3/uL (1.0-4.8) 0.2x10^3/uL (1.0-4.8) Monocytes # (Auto) 0.0x10^3/uL (0.0-1.1) 0.0x10^3/uL (0.0-1.1) Eosinophils # (Auto) 0.0x10^3/uL (0.0-0.7) 0.0x10^3/uL (0.0-0.7) Basophils # (Auto) 0.0x10^3/uL (0.0-0.2) 0.0x10^3/uL (0.0-0.2) Segmented Neutrophils % 97% (35-66) Band Neutrophils % 1% (0-9) Lymphocytes % 2% (24-48) Platelet Estimate Decreased (ADEQUATE) Anisocytosis Mod Macrocytosis Slight Erythrocyte Sedimentation Rate 78 (0-25) Sodium Level 135mmol/L (136-145) 135mmol/L (136-145) Potassium Level 5.4mmol/L (3.5-5.1) 5.4mmol/L (3.5-5.1) Chloride Level 105mmol/L (98-107) 107mmol/L (98-107) Carbon Dioxide Level 17mmol/L (21-32) 15mmol/L (21-32) Anion Gap 13 (6-14) 13 (6-14) Blood Urea Nitrogen 73mg/dL (7-20) 80mg/dL (7-20) Creatinine 4.0mg/dL (0.6-1.0) 4.1mg/dL (0.6-1.0) Estimated GFR (Cockcroft-Gault) 11.2 10.9 Glucose Level 100mg/dL (70-99) 92mg/dL (70-99) Calcium Level 6.9mg/dL (8.5-10.1) 6.7mg/dL (8.5-10.1) Total Bilirubin 0.6mg/dL (0.2-1.0) 0.6mg/dL (0.2-1.0) Direct Bilirubin 0.2mg/dL (0.0-0.2) Aspartate Amino Transf (AST/SGOT) 74U/L (15-37) 116U/L (15-37) Alanine Aminotransferase (ALT/SGPT) 40U/L (14-59) 49U/L (14-59) Alkaline Phosphatase 82U/L (46-116) 94U/L (46-116) C-Reactive Protein High Sensitivity 129.50mg/L (0.00-3.00) Total Protein 5.0g/dL (6.4-8.2) 4.7g/dL (6.4-8.2) Albumin 2.0g/dL (3.4-5.0) 1.8g/dL (3.4-5.0) Urine Collection Type Unknown Urine Color Shari Urine Clarity Cloudy Urine pH 5.0 Urine Specific [place] 1.020 Urine Protein Negativemg/dL (NEG-TRACE) Urine Glucose (UA) Negativemg/dL (NEG) Urine Ketones (Stick) Negativemg/dL (NEG) Urine Blood Negative (NEG) Urine Nitrite Negative (NEG) Urine Bilirubin Large (NEG) Urine Urobilinogen Dipstick 0.2mg/dL (0.2 mg/dL) Urine Leukocyte Esterase Moderate (NEG) Urine RBC 0/HPF (0-2) Urine WBC 20-40/HPF (0-4) Urine Squamous Epithelial Cells Many/LPF Urine Amorphous Sediment Present/HPF Urine Bacteria Few/HPF (0-FEW) Urine Mucus Marked/LPF Urine Yeast Present/HPF Urine Random Creatinine 191.7mg/dL (Not Estab.) Urine Random Total Protein 53.6mg/dL (Not Estab.) BUN/Creatinine Ratio 20 (6-20) Ionized Calcium 0.94mmol/L (1.13-1.32) Phosphorus Level 7.4mg/dL (2.6-4.7) Magnesium Level 1.9mg/dL (1.8-2.4) Albumin/Globulin Ratio 0.6 (1.0-1.7) Vitamin B12 Level 656pg/mL (247-911) Thyroid Stimulating Hormone (TSH) 4.853uIU/mL (0.358-3.74) Lactate Dehydrogenase 503U/L (81-234) Hepatitis B Surface Antigen Negative (Negative) Hepatitis B Surface Antibody Non reactive (.) Hepatitis B Core Total Antibody Negative (Negative) Test 12/29/16 05:20 White Blood Count 2.0x10^3/uL (4.0-11.0) Red Blood Count 2.44x10^6/uL (3.50-5.40) Hemoglobin 8.2g/dL (12.0-15.5) Hematocrit 23.4% (36.0-47.0) Mean Corpuscular Volume 96fL (79-100) Mean Corpuscular Hemoglobin 34pg (25-35) Mean Corpuscular Hemoglobin Concent 35g/dL (31-37) Red Cell Distribution Width 23.1% (11.5-14.5) Platelet Count 38x10^3/uL (140-400) Neutrophils (%) (Auto) 89% (31-73) Lymphocytes (%) (Auto) 10% (24-48) Monocytes (%) (Auto) 0% (0-9) Eosinophils (%) (Auto) 1% (0-3) Basophils (%) (Auto) 0% (0-3) Neutrophils # (Auto) 1.8x10^3uL (1.8-7.7) Lymphocytes # (Auto) 0.2x10^3/uL (1.0-4.8) Monocytes # (Auto) 0.0x10^3/uL (0.0-1.1) Eosinophils # (Auto) 0.0x10^3/uL (0.0-0.7) Basophils # (Auto) 0.0x10^3/uL (0.0-0.2) Sodium Level 139mmol/L (136-145) Potassium Level 4.0mmol/L (3.5-5.1) Chloride Level 103mmol/L (98-107) Carbon Dioxide Level 28mmol/L (21-32) Anion Gap 8 (6-14) Blood Urea Nitrogen 55mg/dL (7-20) Creatinine 3.3mg/dL (0.6-1.0) Estimated GFR (Cockcroft-Gault) 13.9 Glucose Level 115mg/dL (70-99) Calcium Level 6.6mg/dL (8.5-10.1) Phosphorus Level 6.2mg/dL (2.6-4.7) Magnesium Level 1.6mg/dL (1.8-2.4) Creatine Kinase 72U/L (26-192) Albumin 1.7g/dL (3.4-5.0) Laboratory Tests Test 12/29/16 05:20 White Blood Count 2.0x10^3/uL (4.0-11.0) Red Blood Count 2.44x10^6/uL (3.50-5.40) Hemoglobin 8.2g/dL (12.0-15.5) Hematocrit 23.4% (36.0-47.0) Mean Corpuscular Volume 96fL (79-100) Mean Corpuscular Hemoglobin 34pg (25-35) Mean Corpuscular Hemoglobin Concent 35g/dL (31-37) Red Cell Distribution Width 23.1% (11.5-14.5) Platelet Count 38x10^3/uL (140-400) Neutrophils (%) (Auto) 89% (31-73) Lymphocytes (%) (Auto) 10% (24-48) Monocytes (%) (Auto) 0% (0-9) Eosinophils (%) (Auto) 1% (0-3) Basophils (%) (Auto) 0% (0-3) Neutrophils # (Auto) 1.8x10^3uL (1.8-7.7) Lymphocytes # (Auto) 0.2x10^3/uL (1.0-4.8) Monocytes # (Auto) 0.0x10^3/uL (0.0-1.1) Eosinophils # (Auto) 0.0x10^3/uL (0.0-0.7) Basophils # (Auto) 0.0x10^3/uL (0.0-0.2) Sodium Level 139mmol/L (136-145) Potassium Level 4.0mmol/L (3.5-5.1) Chloride Level 103mmol/L (98-107) Carbon Dioxide Level 28mmol/L (21-32) Anion Gap 8 (6-14) Blood Urea Nitrogen 55mg/dL (7-20) Creatinine 3.3mg/dL (0.6-1.0) Estimated GFR (Cockcroft-Gault) 13.9 Glucose Level 115mg/dL (70-99) Calcium Level 6.6mg/dL (8.5-10.1) Phosphorus Level 6.2mg/dL (2.6-4.7) Magnesium Level 1.6mg/dL (1.8-2.4) Creatine Kinase 72U/L (26-192) Albumin 1.7g/dL (3.4-5.0) Microbiology 12/27/16 Blood Culture - Preliminary, Resulted NO GROWTH AFTER 1 DAY Medications Current Medications Acetaminophen (Tylenol) 650 mg 1X ONCE PO Last administered on 12/27/16 09:11 ; Start 12/27/16 at 08:15; Stop 12/27/16 at 08:22; Status DC Diphenhydramine HCl (Benadryl) 25 mg 1X ONCE PO Last administered on 09:12; Start 12/27/16 at 08:15; Stop 12/27/16 at 08:22; Status DC Furosemide (Lasix) 20 mg 1X ONCE IVP ; Start 12/27/16 at 08:15; Stop 12/27/16 at 08:22; Status DC Fentanyl Citrate (Fentanyl 2ml Vial) 25 mcg PRN QID PRN IV PAIN; Start at 16:45; Stop 12/29/16 at 21:00 Lisinopril (Prinivil) 10 mg DAILY PO ; Start 12/28/16 at 09:00; Stop 12/28/16 at 09:00; Status DC Oxycodone/ Acetaminophen (Percocet 5/325) 1 tab Q4HRS PRN PO MILD/MODERATE PAIN ; Start 12/27/16 at 16:45 Gabapentin (Neurontin) 300 mg TID PO Last administered on 12/28/16 10:44; Start 12/27/16 at 21:00; Stop 12/28/16 at 15:23; Status DC Cetirizine HCl (Zyrtec) 10 mg PRN DAILY PRN PO ALLERGIES; Start 12/28/16 at 09: 00 Pantoprazole Sodium (Protonix) 40 mg DAILYAC PO Last administered on 12/29/16 06:04; Start 12/28/16 at 07:30 Oxycodone/ Acetaminophen 2 tab 2 tab Q4HRS PRN PO SEVERE PAIN Last administered on 12/29/16 08:05; Start 12/27/16 at 16:45 Sodium Chloride (Iv Sodium Chloride 0.9% 1000ml Bag) 1,000 ml @ 75 mls/hr [id number] IV Last administered on 12/28/16 07:12; Start 12/27/16 at 17:30; Stop 12/28/16 at 08:15; Status DC Piperacillin Sod/ Tazobactam Sod (Zosyn Per Pharmacy) 1 each PRN DAILY PRN MC SEE COMMENTS; Start 12/27/16 at 17:30; Stop 12/28/16 at 07:27; Status DC Vancomycin HCl 1 each 1 each PRN DAILY PRN MC SEE COMMENTS Last administered on 12/27/16 18:45; Start 12/27/16 at 17:30; Stop 12/27/16 at 18:51; Status DC Vancomycin HCl 2 gm/Sodium Chloride 500 ml @ 250 mls/hr 1X ONCE IV ; Start at 17:45; Stop 12/27/16 at 18:51; Status DC Piperacillin Sod/ Tazobactam Sod 3.375 gm/Sodium Chloride 50 ml @ 100 mls/hr 1X ONCE IV Last administered on 12/27/16 18:07; Start 12/27/16 at 18:00; Stop 12/27/16 at 18:29; Status DC Piperacillin Sod/ Tazobactam Sod 2.25 gm/Sodium Chloride 50 ml @ 100 mls/hr Q6HRS IV Last administered on 12/28/16 06:08; Start 12/28/16 at 00:00; Stop at 07:31; Status DC Vancomycin HCl 1.5 gm/Sodium Chloride 500 ml @ 250 mls/hr Q48H IV ; Start 12/29 at 20:00; Stop 12/29/16 at 20:00; Status DC Micafungin Sodium 100 mg/Dextrose 100 ml @ 100 mls/hr Q24H IV Last administered on 12/28/16 08:03; Start 12/28/16 at 08:00 Linezolid 300 ml @ 300 mls/hr Q12HR IV Last administered on 12/28/16 21:06; Start 12/28/16 at 09:00 Piperacillin Sod/ Tazobactam Sod 2.25 gm/Sodium Chloride 50 ml @ 100 mls/hr Q8HRS IV Last administered on 12/29/16 06:03; Start 12/28/16 at 14:00 Calcium Chloride 2000 mg/Sodium Chloride 120 ml @ 240 mls/hr 1X ONCE IV Last administered on 12/28/16 08:54; Start 12/28/16 at 08:00; Stop 12/28/16 at 08:29 ; Status DC Magnesium Sulfate/ Dextrose (Magnesium Sulfate PREMIX 2GM) 50 ml @ 25 mls/hr PRN DAILY PRN IV for Mag < 1.7 on am labs; Start 12/28/16 at 08:15 Sodium Bicarbonate 50 meq 50 meq Q2H IV Last administered on 12/28/16 15:33; Start 12/28/16 at 08:30; Stop 12/28/16 at 10:31; Status DC Sodium Chloride 500 ml @ 0 mls/hr PRN QID PRN IV UO< 30cc/hr over previous 6hrs ; Start 12/28/16 at 08:15 Sodium Bicarbonate/ Dextrose 1,150 ml @ 100 mls/hr [id number] IV Last administered on 12/29/16 06:03; Start 12/28/16 at 09:00 Heparin Sodium (Porcine) (Heparin Sodium) 10,000 unit STK-MED ONCE .ROUTE ; Start 12/28/16 at 08:46; Stop 12/28/16 at 08:47; Status DC Lidocaine/Sodium Bicarbonate 20 ml 20 ml STK-MED ONCE IJ ; Start 12/28/16 at 08: 47; Stop 12/28/16 at 08:48; Status DC Heparin Sodium/ Sodium Chloride 500 ml @ As Directed STK-MED ONCE .ROUTE ; Start 12/28/16 at 08:47; Stop 12/28/16 at 08:48; Status DC Lidocaine/Sodium Bicarbonate (Buffered Lidocaine 1%) 3 ml 1X ONCE IJ Last administered on 12/28/16 10:10; Start 12/28/16 at 09:00; Stop 12/28/16 at 09:01 ; Status DC Heparin Sodium/ Sodium Chloride 60 unit 1X ONCE IV Last administered on 10:11; Start 12/28/16 at 09:00; Stop 12/28/16 at 09:01; Status DC Heparin Sodium (Porcine) (Heparin Sodium) 2,500 unit 1X ONCE INT CAT Last administered on 12/28/16 10:10; Start 12/28/16 at 09:00; Stop 12/28/16 at 09:01 ; Status DC Midazolam HCl (Versed) 2 mg STK-MED ONCE .ROUTE ; Start 12/28/16 at 09:41; Stop 12/28/16 at 09:42; Status DC Saliva Substitute (Biotene Moisturizing Mouth) 2 spray PRN Q15MIN PRN PO DRY MOUTH; Start 12/28/16 at 13:15 Gabapentin (Neurontin) 300 mg DAILY PO ; Start 12/29/16 at 09:00 Acetaminophen (Tylenol) 650 mg PRN Q6HRS PRN PO MILD PAIN Last administered on 12/29/16 03:05; Start 12/28/16 at 18:15 Ondansetron HCl (Zofran) 4 mg PRN Q6HRS PRN IV NAUSEA/VOMITING Last administered on 12/29/16 11:10; Start 12/29/16 at 10:45 Active Scripts Active Reported Claritin (Loratadine) 10 Mg Tablet 1 Tab PO DAILY PRN Bactrim 400-80 Mg Tablet (Sulfamethoxazole/Trimethoprim) 1 Each Tablet 1 Tab PO BID Gabapentin 300 Mg Capsule 300 Mg PO TID Zestril (Lisinopril) 10 Mg Tablet 10 Mg PO DAILY Cyanocobalamin Injection (Cyanocobalamin (Vitamin B-12)) 1,000 Mcg/1 Ml Vial 1, 000 Mcg QMONTH Percocet 5-325 Mg Tablet (Oxycodone/Acetaminophen) 1 Each Tablet 1-2 Tab PO Q4- 6HRS Prilosec Otc (Omeprazole Magnesium) 20 Mg Tablet.dr 20 Mg PO DAILY Vitals/I & O Vital Sign - Last 24 Hours 12/28/16 12/28/16 12/28/16 12/28/16 19:52 20:00 21:15 23:12 Temp 98.3 98.5 98.3 98.5 Pulse 87 84 Resp 18 B/P 101/40 116/54 Pulse Ox 93 90 O2 Delivery Room Air Room Air Room Air Room Air 12/29/16 12/29/16 12/29/16 12/29/16 03:04 07:00 07:30 08:05 Temp 100.0 98.5 100.0 98.5 Pulse 87 78 Resp 16 B/P 95/44 99/45 Pulse Ox 93 93 O2 Delivery Room Air Room Air Room Air Room Air 12/29/16 09:15 Resp 18 O2 Delivery Room Air Intake and Output 12/28/16 12/28/16 12/29/16 15:00 23:00 07:00 Intake Total 1990 ml 1352 ml Output Total 500 ml Balance 1990 ml 852 ml KIKE LORA MD Dec 29, 2016 13:37
[2016-12-29] MEDS ORDERED: PROCHLORPERAZINE 10 MG/2 ML VIAL. IV ONE (14:00)
--- NOTE | 2016-12-29 14:24 | RAD ---
Ultrasound and fluoro guided left IJ temporary hemodialysis catheter insertion Indication: 66-year-old female with acute renal failure, metabolic acidosis, and hyperkalemia. Temporary dialysis catheter insertion has been requested by renal. Fluoro time: 0.5 minutes Kerma-Area Product: 2 Gycm2 Anesthesia: Local only Sterility: All elements of maximal sterile barrier technique, including the use of a cap, mask, sterile gown, sterile gloves, large sterile sheet, appropriate hand hygiene, and 2% chlorhexidine for cutaneous antisepsis (or acceptable alternative antiseptic per current guidelines) were utilized. Procedure: Informed consent was obtained from the patient's . She was placed supine on the angiography table. Preliminary ultrasound examination of left neck revealed patency of left internal jugular vein, which was documented with a single hard copy ultrasound image. Left neck was then prepped and draped in the usual sterile fashion, utilizing all elements of maximal sterile barrier technique, as described above. Using aseptic technique, local anesthesia, direct ultrasound guidance, and the micropuncture system, successful percutaneous entry was achieved into left internal jugular vein. The left IJ venostomy tract was then dilated and a 14 [place] 24 Schon temporary hemodialysis catheter was easily advanced centrally over an angiographic guidewire, and was positioned with its tip at the level of mid right atrium utilizing fluoroscopic guidance. This catheter was documented to flush and aspirate normally, was packed, and was secured at the left neck exit site utilizing suture and sterile dressing. Patient tolerated the procedure well without apparent complication. Satisfactory position of the dialysis catheter was confirmed with a single fluoroscopic spot image. Impression: Successful, uneventful ultrasound and fluoro guided placement of left IJ 14 [place] 24 cm Schon temporary hemodialysis catheter, as described.
[2016-12-29] MEDS: MICAFUNGIN 100 MG in IV DEXTROSE 5% 100 ML IV SCH (14:30)
[2016-12-29] MEDS: GABAPENTIN 300 MG CAPSULE. PO SCH (14:32)
[2016-12-29 15:29] LABS: PTH INTACT 330 pg/mL (15-65)
[2016-12-29] MEDS ORDERED: VANCOMYCIN 1.5 GM in IV NORMAL SALINE 500ML BAG 500 ML IV SCH (20:00)
[2016-12-29] MEDS: MAGNESIUM SULFATE 2GM 50 ML IV PRN (22:56)
[2016-12-29] MEDS ORDERED: IV NORMAL SALINE 500ML BAG 500 ML IV ONE (23:30)
[2016-12-30] VITALS (9 sets, daily range): BP systolic 90–123; BP diastolic 33–77
[2016-12-30] MEDS ORDERED: IV NORMAL SALINE 500ML BAG 500 ML IV ONE
[2016-12-30] MEDS: ONDANSETRON PF 4 MG/2 ML VIAL. IV PRN ×3 (03:10→17:30)
[2016-12-30 05:34] LABS: BASO % 0 % (0-3); EOS % 1 % (0-3); HEMOGLOBIN 8.4 g/dL (12.0-15.5); LYMPH # 0.2 x10^3/uL (1.0-4.8); LYMPH % 8 % (24-48); MEAN CORPUSCULAR HEMOGLOBIN 34 pg (25-35); MEAN CORPUSCULAR HGB CONC 34 g/dL (31-37); MEAN CORPUSCULAR VOLUME 99 fL (79-100); MONO % 0 % (0-9); NEUT % 92 % (31-73); RED BLOOD COUNT 2.52 x10^6/uL (3.50-5.40); RED CELL DISTRIBUTION WIDTH 23.4 % (11.5-14.5); WHITE BLOOD COUNT 2.1 x10^3/uL (4.0-11.0)
[2016-12-30 05:44] LABS: PLATELET COUNT 23 x10^3/uL (140-400)
[2016-12-30 05:48] LABS: MAGNESIUM 1.8 mg/dL (1.8-2.4)
[2016-12-30] MEDS: SODIUM BICARBONATE VIAL 150 MEQ in IV DEXTROSE 5% 1,000 ML IV SCH (06:08)
[2016-12-30] MEDS: PIPERACILLIN/TAZOBACTAM 2.25 GM in IV NORMAL SALINE 50ML 50 ML IV SCH ×3 (06:08→22:19)
[2016-12-30] MEDS: PANTOPRAZOLE 40 MG TABLET.DR. PO SCH (07:30)
[2016-12-30] MEDS ORDERED: IV NORMAL SALINE 1000ML BAG 1,000 ML IV PRN (08:03)
[2016-12-30] MEDS ORDERED: DIALYSIS PATIENT. MC PRN ×2 (08:15)
[2016-12-30] MEDS ORDERED: ALBUMIN HUMAN 25% 200 ML IV PRN (08:15)
[2016-12-30] MEDS ORDERED: 0.9 % SODIUM CHLORIDE 10 ML DISP.SYRIN. IV PRN ×2 (08:15)
--- NOTE | 2016-12-30 08:36 | PDOC ---
Dialysis Progress Note Dialysis Note Dialysis Note Seen on Hemodialysis, tolerating treatment Okay for now Vitals on Hemodialysis: 117/51 80 afeb General Appearance: Awake: Alert Oriented x 3 Neck: No JVD or JVP Chest: CTA Massimo Heart: S1 S2 Abdomen - Soft NTND Extremities - + Edema ARF/ ATN : Dialysis as below F 180 NR 3.5 Hrs 3 K 3.5 Ca 140 Na 30 HC03 Qb 350 + Qd 500+ Heparin Units Uf 0 Kgs or to dry weight as tolerated May give 25-50 gms of 25% Albumin if needed to maintain Hemodynamic stability Treatment plan reviewed and discussed with consultant dietitian Vitals Vital Signs Vital Signs Date Time Temp Pulse Resp B/P Pulse Ox O2 Delivery O2 Flow Rate FiO2 12/30/16 07:30 Room Air 12/30/16 04:05 70 115/55 12/30/16 03:24 97.9 18 92 97.9 Labs Last Labs Laboratory Tests Test 12/28/16 10:50 12/29/16 05:20 12/30/16 05:20 Estimated GFR (Non- 12 (>59) Lactate Dehydrogenase 503U/L (81-234) EGFR 13 (>59) PTH (Intact) Specimen Description Comment (.) Parathyroid Hormone (Intact) 330pg/mL (15-65) Calcium (PTH Intact) 7.6mg/dL (8.7-10.3) Creatinine (PTH Intact) 3.82mg/dL (0.57-1.00) Phosphorus (PTH Intact) 7.4mg/dL (2.5-4.5) Hepatitis B Surface Antigen Negative (Negative) Hepatitis B Surface Antibody Non reactive (.) Hepatitis B Core Total Antibody Negative (Negative) White Blood Count 2.0x10^3/uL (4.0-11.0) 2.1x10^3/uL (4.0-11.0) Red Blood Count 2.44x10^6/uL (3.50-5.40) 2.52x10^6/uL (3.50-5.40) Hemoglobin 8.2g/dL (12.0-15.5) 8.4g/dL (12.0-15.5) Hematocrit 23.4% (36.0-47.0) 25.0% (36.0-47.0) Mean Corpuscular Volume 96fL (79-100) 99fL (79-100) Mean Corpuscular Hemoglobin 34pg (25-35) 34pg (25-35) Mean Corpuscular Hemoglobin Concent 35g/dL (31-37) 34g/dL (31-37) Red Cell Distribution Width 23.1% (11.5-14.5) 23.4% (11.5-14.5) Platelet Count 38x10^3/uL (140-400) 23x10^3/uL (140-400) Neutrophils (%) (Auto) 89% (31-73) 92% (31-73) Lymphocytes (%) (Auto) 10% (24-48) 8% (24-48) Monocytes (%) (Auto) 0% (0-9) 0% (0-9) Eosinophils (%) (Auto) 1% (0-3) 1% (0-3) Basophils (%) (Auto) 0% (0-3) 0% (0-3) Neutrophils # (Auto) 1.8x10^3uL (1.8-7.7) 1.9x10^3uL (1.8-7.7) Lymphocytes # (Auto) 0.2x10^3/uL (1.0-4.8) 0.2x10^3/uL (1.0-4.8) Monocytes # (Auto) 0.0x10^3/uL (0.0-1.1) 0.0x10^3/uL (0.0-1.1) Eosinophils # (Auto) 0.0x10^3/uL (0.0-0.7) 0.0x10^3/uL (0.0-0.7) Basophils # (Auto) 0.0x10^3/uL (0.0-0.2) 0.0x10^3/uL (0.0-0.2) Sodium Level 139mmol/L (136-145) Potassium Level 4.0mmol/L (3.5-5.1) Chloride Level 103mmol/L (98-107) Carbon Dioxide Level 28mmol/L (21-32) Anion Gap 8 (6-14) Blood Urea Nitrogen 55mg/dL (7-20) Creatinine 3.3mg/dL (0.6-1.0) Estimated GFR (Cockcroft-Gault) 13.9 Glucose Level 115mg/dL (70-99) Calcium Level 6.6mg/dL (8.5-10.1) Phosphorus Level 6.2mg/dL (2.6-4.7) Magnesium Level 1.6mg/dL (1.8-2.4) 1.8mg/dL (1.8-2.4) Creatine Kinase 72U/L (26-192) 69U/L (26-192) Albumin 1.7g/dL (3.4-5.0) Laboratory Tests Test 12/30/16 05:20 White Blood Count 2.1x10^3/uL (4.0-11.0) Red Blood Count 2.52x10^6/uL (3.50-5.40) Hemoglobin 8.4g/dL (12.0-15.5) Hematocrit 25.0% (36.0-47.0) Mean Corpuscular Volume 99fL (79-100) Mean Corpuscular Hemoglobin 34pg (25-35) Mean Corpuscular Hemoglobin Concent 34g/dL (31-37) Red Cell Distribution Width 23.4% (11.5-14.5) Platelet Count 23x10^3/uL (140-400) Neutrophils (%) (Auto) 92% (31-73) Lymphocytes (%) (Auto) 8% (24-48) Monocytes (%) (Auto) 0% (0-9) Eosinophils (%) (Auto) 1% (0-3) Basophils (%) (Auto) 0% (0-3) Neutrophils # (Auto) 1.9x10^3uL (1.8-7.7) Lymphocytes # (Auto) 0.2x10^3/uL (1.0-4.8) Monocytes # (Auto) 0.0x10^3/uL (0.0-1.1) Eosinophils # (Auto) 0.0x10^3/uL (0.0-0.7) Basophils # (Auto) 0.0x10^3/uL (0.0-0.2) Magnesium Level 1.8mg/dL (1.8-2.4) Creatine Kinase 69U/L (26-192) Assessment Assessment Problems Medical Problems: (1) Cellulitis Status: Acute Problems: Plan Plan of Care Problems Medical Problems: (1) Cellulitis Status: Acute DAKOTA VINCENT MD Dec 30, 2016 08:36
[2016-12-30] MEDS: GABAPENTIN 300 MG CAPSULE. PO SCH (09:00)
--- NOTE | 2016-12-30 10:07 | PDOC ---
PROGRESS NOTES Subjective Subjective c/c - f/u of Cholangiocarcinoma stage 4 ROS - twitching resolved Objective Objective Vital Signs Date Time Temp Pulse Resp B/P Pulse Ox O2 Delivery O2 Flow Rate FiO2 12/30/16 07:30 Room Air 12/30/16 04:05 70 115/55 12/30/16 03:24 97.9 18 92 97.9 Intake and Output 12/30/16 07:00 Intake Total 1260 ml Output Total 250 ml Balance 1010 ml Intake Oral 360 ml Other 900 ml Output Urine Total 250 ml # Bowel Movements 1 Physical Exam Heart: Normal S1, Normal S2 General: Alert, Oriented X3 Lungs: Clear to auscultation Neuro: Normal speech Psych/Mental Status: Mental status NL Assessment Assessment Problems Medical Problems: (1) Cellulitis Status: Acute IMPRESSION AND PLAN: 1. Cholangiocarcinoma stage 4. She is on chemotherapy with Gemzar and Xeloda, her last treatment was given on 12/24/2016. I will hold further chemotherapy in view of cellulitis and renal failure and she will follow up with me upon discharge. I will also plan for a PET scan as outpatient. I d/w Dr Salmeron, and I agree that she has likely gemzar related toxicities with ARF and edema. 2. Acute renal failure, I discussed with Dr. Kerr, continue hemodialysis temporarily. 3. Hypocalcemia. s/p IV calcium. 4. Hypoalbuminemia due to malnutrition from malignancy. 5. Cellulitis. I discussed with Dr. Óscar Thacker. She was started on antibiotics for cellulitis of bilateral lower extremities. She had a venous Doppler of bilateral lower extremities on 12/28/2016 that is negative for DVT. 6. Twitching - resolved. 7. Recurrent LE edema, rash. At [facility] last week was thought to be c/w gemzar- related LE swelling/ capillary leak causing erythema, no signs infxn. Treating empirically now with abx. ?if the erythema itself is also gemzar related. Comment Review of Relevant I have reviewed the following items ketty (where applicable) has been applied. Labs Laboratory Tests Test 12/28/16 10:50 12/29/16 05:20 12/30/16 05:20 Estimated GFR (Non- 12 (>59) Lactate Dehydrogenase 503U/L (81-234) EGFR 13 (>59) PTH (Intact) Specimen Description Comment (.) Parathyroid Hormone (Intact) 330pg/mL (15-65) Calcium (PTH Intact) 7.6mg/dL (8.7-10.3) Creatinine (PTH Intact) 3.82mg/dL (0.57-1.00) Phosphorus (PTH Intact) 7.4mg/dL (2.5-4.5) Hepatitis B Surface Antigen Negative (Negative) Hepatitis B Surface Antibody Non reactive (.) Hepatitis B Core Total Antibody Negative (Negative) White Blood Count 2.0x10^3/uL (4.0-11.0) 2.1x10^3/uL (4.0-11.0) Red Blood Count 2.44x10^6/uL (3.50-5.40) 2.52x10^6/uL (3.50-5.40) Hemoglobin 8.2g/dL (12.0-15.5) 8.4g/dL (12.0-15.5) Hematocrit 23.4% (36.0-47.0) 25.0% (36.0-47.0) Mean Corpuscular Volume 96fL (79-100) 99fL (79-100) Mean Corpuscular Hemoglobin 34pg (25-35) 34pg (25-35) Mean Corpuscular Hemoglobin Concent 35g/dL (31-37) 34g/dL (31-37) Red Cell Distribution Width 23.1% (11.5-14.5) 23.4% (11.5-14.5) Platelet Count 38x10^3/uL (140-400) 23x10^3/uL (140-400) Neutrophils (%) (Auto) 89% (31-73) 92% (31-73) Lymphocytes (%) (Auto) 10% (24-48) 8% (24-48) Monocytes (%) (Auto) 0% (0-9) 0% (0-9) Eosinophils (%) (Auto) 1% (0-3) 1% (0-3) Basophils (%) (Auto) 0% (0-3) 0% (0-3) Neutrophils # (Auto) 1.8x10^3uL (1.8-7.7) 1.9x10^3uL (1.8-7.7) Lymphocytes # (Auto) 0.2x10^3/uL (1.0-4.8) 0.2x10^3/uL (1.0-4.8) Monocytes # (Auto) 0.0x10^3/uL (0.0-1.1) 0.0x10^3/uL (0.0-1.1) Eosinophils # (Auto) 0.0x10^3/uL (0.0-0.7) 0.0x10^3/uL (0.0-0.7) Basophils # (Auto) 0.0x10^3/uL (0.0-0.2) 0.0x10^3/uL (0.0-0.2) Sodium Level 139mmol/L (136-145) Potassium Level 4.0mmol/L (3.5-5.1) Chloride Level 103mmol/L (98-107) Carbon Dioxide Level 28mmol/L (21-32) Anion Gap 8 (6-14) Blood Urea Nitrogen 55mg/dL (7-20) Creatinine 3.3mg/dL (0.6-1.0) Estimated GFR (Cockcroft-Gault) 13.9 Glucose Level 115mg/dL (70-99) Calcium Level 6.6mg/dL (8.5-10.1) Phosphorus Level 6.2mg/dL (2.6-4.7) Magnesium Level 1.6mg/dL (1.8-2.4) 1.8mg/dL (1.8-2.4) Creatine Kinase 72U/L (26-192) 69U/L (26-192) Albumin 1.7g/dL (3.4-5.0) Laboratory Tests Test 12/30/16 05:20 White Blood Count 2.1x10^3/uL (4.0-11.0) Red Blood Count 2.52x10^6/uL (3.50-5.40) Hemoglobin 8.4g/dL (12.0-15.5) Hematocrit 25.0% (36.0-47.0) Mean Corpuscular Volume 99fL (79-100) Mean Corpuscular Hemoglobin 34pg (25-35) Mean Corpuscular Hemoglobin Concent 34g/dL (31-37) Red Cell Distribution Width 23.4% (11.5-14.5) Platelet Count 23x10^3/uL (140-400) Neutrophils (%) (Auto) 92% (31-73) Lymphocytes (%) (Auto) 8% (24-48) Monocytes (%) (Auto) 0% (0-9) Eosinophils (%) (Auto) 1% (0-3) Basophils (%) (Auto) 0% (0-3) Neutrophils # (Auto) 1.9x10^3uL (1.8-7.7) Lymphocytes # (Auto) 0.2x10^3/uL (1.0-4.8) Monocytes # (Auto) 0.0x10^3/uL (0.0-1.1) Eosinophils # (Auto) 0.0x10^3/uL (0.0-0.7) Basophils # (Auto) 0.0x10^3/uL (0.0-0.2) Magnesium Level 1.8mg/dL (1.8-2.4) Creatine Kinase 69U/L (26-192) Microbiology 12/27/16 Blood Culture - Preliminary, Resulted NO GROWTH AFTER 2 DAYS Medications Current Medications Acetaminophen (Tylenol) 650 mg 1X ONCE PO Last administered on 12/27/16 09:11 ; Start 12/27/16 at 08:15; Stop 12/27/16 at 08:22; Status DC Diphenhydramine HCl (Benadryl) 25 mg 1X ONCE PO Last administered on 09:12; Start 12/27/16 at 08:15; Stop 12/27/16 at 08:22; Status DC Furosemide (Lasix) 20 mg 1X ONCE IVP ; Start 12/27/16 at 08:15; Stop 12/27/16 at 08:22; Status DC Fentanyl Citrate (Fentanyl 2ml Vial) 25 mcg PRN QID PRN IV PAIN; Start at 16:45; Stop 12/29/16 at 21:00; Status DC Lisinopril (Prinivil) 10 mg DAILY PO ; Start 12/28/16 at 09:00; Stop 12/28/16 at 09:00; Status DC Oxycodone/ Acetaminophen (Percocet 5/325) 1 tab Q4HRS PRN PO MILD/MODERATE PAIN ; Start 12/27/16 at 16:45 Gabapentin (Neurontin) 300 mg TID PO Last administered on 12/28/16 10:44; Start 12/27/16 at 21:00; Stop 12/28/16 at 15:23; Status DC Cetirizine HCl (Zyrtec) 10 mg PRN DAILY PRN PO ALLERGIES; Start 12/28/16 at 09: 00 Pantoprazole Sodium (Protonix) 40 mg DAILYAC PO Last administered on 12/29/16 06:04; Start 12/28/16 at 07:30 Oxycodone/ Acetaminophen 2 tab 2 tab Q4HRS PRN PO SEVERE PAIN Last administered on 12/29/16 20:26; Start 12/27/16 at 16:45 Sodium Chloride (Iv Sodium Chloride 0.9% 1000ml Bag) 1,000 ml @ 75 mls/hr [id number] IV Last administered on 12/28/16 07:12; Start 12/27/16 at 17:30; Stop 12/28/16 at 08:15; Status DC Piperacillin Sod/ Tazobactam Sod (Zosyn Per Pharmacy) 1 each PRN DAILY PRN MC SEE COMMENTS; Start 12/27/16 at 17:30; Stop 12/28/16 at 07:27; Status DC Vancomycin HCl 1 each 1 each PRN DAILY PRN MC SEE COMMENTS Last administered on 12/27/16 18:45; Start 12/27/16 at 17:30; Stop 12/27/16 at 18:51; Status DC Vancomycin HCl 2 gm/Sodium Chloride 500 ml @ 250 mls/hr 1X ONCE IV ; Start at 17:45; Stop 12/27/16 at 18:51; Status DC Piperacillin Sod/ Tazobactam Sod 3.375 gm/Sodium Chloride 50 ml @ 100 mls/hr 1X ONCE IV Last administered on 12/27/16 18:07; Start 12/27/16 at 18:00; Stop 12/27/16 at 18:29; Status DC Piperacillin Sod/ Tazobactam Sod 2.25 gm/Sodium Chloride 50 ml @ 100 mls/hr Q6HRS IV Last administered on 12/28/16 06:08; Start 12/28/16 at 00:00; Stop at 07:31; Status DC Vancomycin HCl 1.5 gm/Sodium Chloride 500 ml @ 250 mls/hr Q48H IV ; Start 12/29 at 20:00; Stop 12/29/16 at 20:00; Status DC Micafungin Sodium 100 mg/Dextrose 100 ml @ 100 mls/hr Q24H IV Last administered on 12/29/16 14:30; Start 12/28/16 at 08:00 Linezolid 300 ml @ 300 mls/hr Q12HR IV Last administered on 12/29/16 21:22; Start 12/28/16 at 09:00 Piperacillin Sod/ Tazobactam Sod 2.25 gm/Sodium Chloride 50 ml @ 100 mls/hr Q8HRS IV Last administered on 12/30/16 06:08; Start 12/28/16 at 14:00 Calcium Chloride 2000 mg/Sodium Chloride 120 ml @ 240 mls/hr 1X ONCE IV Last administered on 12/28/16 08:54; Start 12/28/16 at 08:00; Stop 12/28/16 at 08:29 ; Status DC Magnesium Sulfate/ Dextrose (Magnesium Sulfate PREMIX 2GM) 50 ml @ 25 mls/hr PRN DAILY PRN IV for Mag < 1.7 on am labs Last administered on 12/29/16 22:56 ; Start 12/28/16 at 08:15 Sodium Bicarbonate 50 meq 50 meq Q2H IV Last administered on 12/28/16 15:33; Start 12/28/16 at 08:30; Stop 12/28/16 at 10:31; Status DC Sodium Chloride 500 ml @ 0 mls/hr PRN QID PRN IV UO< 30cc/hr over previous 6hrs ; Start 12/28/16 at 08:15 Sodium Bicarbonate/ Dextrose 1,150 ml @ 100 mls/hr [id number] IV Last administered on 12/30/16 06:08; Start 12/28/16 at 09:00; Stop 12/30/16 at 08:59 ; Status DC Heparin Sodium (Porcine) (Heparin Sodium) 10,000 unit STK-MED ONCE .ROUTE ; Start 12/28/16 at 08:46; Stop 12/28/16 at 08:47; Status DC Lidocaine/Sodium Bicarbonate 20 ml 20 ml STK-MED ONCE IJ ; Start 12/28/16 at 08: 47; Stop 12/28/16 at 08:48; Status DC Heparin Sodium/ Sodium Chloride 500 ml @ As Directed STK-MED ONCE .ROUTE ; Start 12/28/16 at 08:47; Stop 12/28/16 at 08:48; Status DC Lidocaine/Sodium Bicarbonate (Buffered Lidocaine 1%) 3 ml 1X ONCE IJ Last administered on 12/28/16 10:10; Start 12/28/16 at 09:00; Stop 12/28/16 at 09:01 ; Status DC Heparin Sodium/ Sodium Chloride 60 unit 1X ONCE IV Last administered on 10:11; Start 12/28/16 at 09:00; Stop 12/28/16 at 09:01; Status DC Heparin Sodium (Porcine) (Heparin Sodium) 2,500 unit 1X ONCE INT CAT Last administered on 12/28/16 10:10; Start 12/28/16 at 09:00; Stop 12/28/16 at 09:01 ; Status DC Midazolam HCl (Versed) 2 mg STK-MED ONCE .ROUTE ; Start 12/28/16 at 09:41; Stop 12/28/16 at 09:42; Status DC Saliva Substitute (Biotene Moisturizing Mouth) 2 spray PRN Q15MIN PRN PO DRY MOUTH; Start 12/28/16 at 13:15 Gabapentin (Neurontin) 300 mg DAILY PO Last administered on 12/29/16 14:32; Start 12/29/16 at 09:00 Acetaminophen (Tylenol) 650 mg PRN Q6HRS PRN PO MILD PAIN Last administered on 12/29/16 03:05; Start 12/28/16 at 18:15 Ondansetron HCl (Zofran) 4 mg PRN Q6HRS PRN IV NAUSEA/VOMITING Last administered on 12/29/16 11:10; Start 12/29/16 at 10:45; Stop 12/29/16 at 13:53 ; Status DC Ondansetron HCl (Zofran) 8 mg PRN Q8HRS PRN IV NAUSEA/VOMITING Last administered on 12/30/16 08:12; Start 12/29/16 at 14:00 Prochlorperazine Edisylate 10 mg 10 mg 1X ONCE IV Last administered on 14:00; Start 12/29/16 at 14:00; Stop 12/29/16 at 14:01; Status DC Sodium Chloride 500 ml @ 500 mls/hr 1X ONCE IV Last administered on 23:20; Start 12/29/16 at 23:30; Stop 12/30/16 at 00:29; Status DC Sodium Chloride 500 ml @ 500 mls/hr 1X ONCE IV Last administered on 00:05; Start 12/30/16 at 00:00; Stop 12/30/16 at 00:59; Status DC Sodium Chloride 1,000 ml @ 1,000 mls/hr Q1H PRN IV hypotension; Start 12/30/16 at 08:03; Stop 12/30/16 at 14:02 Albumin Human (Albuminar) 200 ml @ 200 mls/hr 1X PRN PRN IV Hypotension Last administered on 12/30/16 09:22; Start 12/30/16 at 08:15; Stop 12/30/16 at 14:14 Sodium Chloride (Normal Saline Flush) 10 ml 1X PRN PRN IV AP catheter pack; Start 12/30/16 at 08:15; Stop 12/31/16 at 08:14 Sodium Chloride (Normal Saline Flush) 10 ml 1X PRN PRN IV LAMINATION OPERATOR catheter pack; Start 12/30/16 at 08:15; Stop 12/31/16 at 08:14 Info (PHARMACY MONITORING -- do not chart) 1 each PRN DAILY PRN MC SEE COMMENTS ; Start 12/30/16 at 08:15 Info (PHARMACY MONITORING -- do not chart) 1 each PRN DAILY PRN MC SEE COMMENTS ; Start 12/30/16 at 08:15; Status UNV Paricalcitol (Zemplar) 5 mcg 3X/WEEK IV ; Start 12/31/16 at 09:00 Calcium Acetate (Phoslo) 1,334 mg TIDWMEALS PO ; Start 12/30/16 at 12:00 Active Scripts Active Reported Claritin (Loratadine) 10 Mg Tablet 1 Tab PO DAILY PRN Bactrim 400-80 Mg Tablet (Sulfamethoxazole/Trimethoprim) 1 Each Tablet 1 Tab PO BID Gabapentin 300 Mg Capsule 300 Mg PO TID Zestril (Lisinopril) 10 Mg Tablet 10 Mg PO DAILY Cyanocobalamin Injection (Cyanocobalamin (Vitamin B-12)) 1,000 Mcg/1 Ml Vial 1, 000 Mcg QMONTH Percocet 5-325 Mg Tablet (Oxycodone/Acetaminophen) 1 Each Tablet 1-2 Tab PO Q4- 6HRS Prilosec Otc (Omeprazole Magnesium) 20 Mg Tablet.dr 20 Mg PO DAILY Vitals/I & O Vital Sign - Last 24 Hours 12/29/16 12/29/16 12/29/16 12/29/16 13:54 15:00 19:00 20:00 Temp 97.7 99.5 97.7 99.5 Pulse 85 92 Resp 18 18 B/P 140/60 140/60 134/62 Pulse Ox 93 95 O2 Delivery Room Air Room Air Room Air 12/29/16 12/29/16 12/29/16 12/29/16 20:26 21:30 23:05 23:10 Temp 98.5 98.5 Pulse 85 80 Resp 16 16 18 B/P 85/36 81/39 Pulse Ox 91 O2 Delivery Room Air Room Air Room Air 12/29/16 12/30/16 12/30/16 12/30/16 23:49 00:05 00:43 00:55 Pulse 77 75 75 72 B/P 85/40 90/33 93/43 95/45 12/30/16 12/30/16 12/30/16 12/30/16 01:12 03:24 04:05 07:30 Temp 97.9 97.9 Pulse 70 73 70 Resp 18 B/P 97/49 96/50 115/55 Pulse Ox 92 O2 Delivery Room Air Room Air Intake and Output 12/29/16 12/29/16 12/30/16 15:00 23:00 07:00 Intake Total 1080 ml 180 ml Output Total 250 ml Balance 1080 ml -70 ml LETICIA TREVINO MD Dec 30, 2016 10:06
--- NOTE | 2016-12-30 10:44 | PDOC ---
Infectious Disease Note Subjective Subjective Better. Less pain and twitching. Has hiccups ROS ROS GEN: Denies fevers, chills, sweats HEENT: Denies blurred vision, sore throat CV: Denies chest pain RESP: Denies shortness of air, cough GI: Denies v/d. Occ nausea NEURO: Denies confusion, dizziness MSK: Denies weakness, joint pain/swelling. Leg better Vital Sign Vital Signs Vital Signs Date Time Temp Pulse Resp B/P Pulse Ox O2 Delivery O2 Flow Rate FiO2 12/30/16 07:30 Room Air 12/30/16 04:05 70 115/55 12/30/16 03:24 97.9 18 92 97.9 Physical Exam PHYSICAL EXAM GENERAL: NAD, Alert. In HD HEENT: PERRL, OC/OP - clear NECK: Supple, no JVD, no LN LUNGS: Clear HEART: S1S2, no gallop, no murmur ABD: Soft, NT, no organomegaly, no rebound, obese EXT: RLE much improved with less erythema/pain and edema, Wound clean. no cyanosis. LLE mild edema HEALTH CLINICIAN: Alert, 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 SKIN: No rash IV: Left IJ HD and right port Labs Lab Laboratory Tests Test 12/30/16 05:20 White Blood Count 2.1x10^3/uL (4.0-11.0) Red Blood Count 2.52x10^6/uL (3.50-5.40) Hemoglobin 8.4g/dL (12.0-15.5) Hematocrit 25.0% (36.0-47.0) Mean Corpuscular Volume 99fL (79-100) Mean Corpuscular Hemoglobin 34pg (25-35) Mean Corpuscular Hemoglobin Concent 34g/dL (31-37) Red Cell Distribution Width 23.4% (11.5-14.5) Platelet Count 23x10^3/uL (140-400) Neutrophils (%) (Auto) 92% (31-73) Lymphocytes (%) (Auto) 8% (24-48) Monocytes (%) (Auto) 0% (0-9) Eosinophils (%) (Auto) 1% (0-3) Basophils (%) (Auto) 0% (0-3) Neutrophils # (Auto) 1.9x10^3uL (1.8-7.7) Lymphocytes # (Auto) 0.2x10^3/uL (1.0-4.8) Monocytes # (Auto) 0.0x10^3/uL (0.0-1.1) Eosinophils # (Auto) 0.0x10^3/uL (0.0-0.7) Basophils # (Auto) 0.0x10^3/uL (0.0-0.2) Magnesium Level 1.8mg/dL (1.8-2.4) Creatine Kinase 69U/L (26-192) Objective Assessment Right LE cellulitis - better ARTURO and electrolyte abnormalities - better s/p HD Pancytopenia - too earyl for abx to be involved mild encephalopathy - improved but twitch continues? electrolyte disturbance, ? met Cholangiocarcinoma s/p chemo 12/24 Plan Plan of Care Cont Zyvox/Zosyn/Micafungin for now Monitor blood counts F/u labs RAHEEM TY MD Dec 30, 2016 10:44
[2016-12-30] MEDS: ACETAMINOPHEN 325 MG TABLET. PO PRN ×2 (11:05→23:23)
[2016-12-30 11:45] LABS: NUCLEATED RBC 1
[2016-12-30 11:54] LABS: ANISOCYTOSIS MOD; PLT ESTIMATE DECREASED (ADEQUATE)
[2016-12-30 11:55] LABS: OVALOCYTES FEW
[2016-12-30] MEDS: CALCIUM ACETATE 667 MG CAPSULE PO SCH ×2 (12:00→16:45)
[2016-12-30 12:36] LABS: ALBUMIN 1.5 g/dL (3.4-5.0); CALCIUM 7.2 mg/dL (8.5-10.1); CREATININE 2.1 mg/dL (0.6-1.0); GFR 23.5; PHOSPHORUS 4.8 mg/dL (2.6-4.7); POTASSIUM 3.6 mmol/L (3.5-5.1)
--- NOTE | 2016-12-30 13:11 | PDOC ---
PROGRESS NOTES Chief Complaint Chief Complaint acute metabolic encephalopathy, 2/2 ARTURO likely cellulitis BLE, diffuse, Acute renal failure, ATN 2/2 gemzar hyperkalemia, gap metabolic acidosis, uremia GERD peripheral neuropathy cholangiocarcinoma STAGE 4 obesity hypomagnesemia pancytopenia 2/2 chemo N/V, diarrhea severe malnutrition plan: fu with renal, onco, id on multiple abx, zyvox, zosyn, micofungin cont HD now ptot monitor urine output gi ppx check cdiff History of Present Illness History of Present Illness feels N/V and diarrhea today low urine output 500mls 12 hours, and dark despite IV fluids pancytopenia tremor better HD 12/28, 12/29, 12/30 Vitals Vitals Vital Signs Date Time Temp Pulse Resp B/P Pulse Ox O2 Delivery O2 Flow Rate FiO2 12/30/16 07:30 Room Air 12/30/16 04:05 70 115/55 12/30/16 03:24 97.9 18 92 97.9 Physical Exam General: Alert, Oriented X3 Heart: Normal S1, Normal S2 Lungs: Clear, Crackles, Other Abdomen: Normal bowel sounds, Soft, No tenderness Extremities: Other (2+ edema bilaterl LE edema throughout LE (previously below knee last admit), bl leg erythema, right worse than left side) Skin: Other (brown nodule right lateral ankle, erythema in lower extremities) Labs LABS Laboratory Tests Test 12/30/16 05:20 White Blood Count 2.1x10^3/uL (4.0-11.0) Red Blood Count 2.52x10^6/uL (3.50-5.40) Hemoglobin 8.4g/dL (12.0-15.5) Hematocrit 25.0% (36.0-47.0) Mean Corpuscular Volume 99fL (79-100) Mean Corpuscular Hemoglobin 34pg (25-35) Mean Corpuscular Hemoglobin Concent 34g/dL (31-37) Red Cell Distribution Width 23.4% (11.5-14.5) Platelet Count 23x10^3/uL (140-400) Neutrophils (%) (Auto) 92% (31-73) Lymphocytes (%) (Auto) 8% (24-48) Monocytes (%) (Auto) 0% (0-9) Eosinophils (%) (Auto) 1% (0-3) Basophils (%) (Auto) 0% (0-3) Neutrophils # (Auto) 1.9x10^3uL (1.8-7.7) Lymphocytes # (Auto) 0.2x10^3/uL (1.0-4.8) Monocytes # (Auto) 0.0x10^3/uL (0.0-1.1) Eosinophils # (Auto) 0.0x10^3/uL (0.0-0.7) Basophils # (Auto) 0.0x10^3/uL (0.0-0.2) Segmented Neutrophils % 81% (35-66) Band Neutrophils % 12% (0-9) Lymphocytes % 7% (24-48) Nucleated Red Blood Cells 1 Hypersegmented Neutrophils Present Dohle Bodies Few Platelet Estimate Decreased (ADEQUATE) Anisocytosis Mod Macrocytosis Present Ovalocytes Few Sodium Level 138mmol/L (136-145) Potassium Level 3.6mmol/L (3.5-5.1) Chloride Level 101mmol/L (98-107) Carbon Dioxide Level 30mmol/L (21-32) Anion Gap 7 (6-14) Blood Urea Nitrogen 36mg/dL (7-20) Creatinine 2.1mg/dL (0.6-1.0) Estimated GFR (Cockcroft-Gault) 23.5 Glucose Level 124mg/dL (70-99) Calcium Level 7.2mg/dL (8.5-10.1) Phosphorus Level 4.8mg/dL (2.6-4.7) Magnesium Level 1.8mg/dL (1.8-2.4) Creatine Kinase 69U/L (26-192) Albumin 1.5g/dL (3.4-5.0) Review of Systems Review of Systems no fever, chills, sob or chest pain Assessment and Plan Assessmemt and Plan Problems Medical Problems: (1) Cellulitis Status: Acute Problems: Comment Review of Relevant I have reviewed the following items ketty (where applicable) has been applied. Labs Laboratory Tests Test 12/29/16 05:20 12/30/16 05:20 White Blood Count 2.0x10^3/uL (4.0-11.0) 2.1x10^3/uL (4.0-11.0) Red Blood Count 2.44x10^6/uL (3.50-5.40) 2.52x10^6/uL (3.50-5.40) Hemoglobin 8.2g/dL (12.0-15.5) 8.4g/dL (12.0-15.5) Hematocrit 23.4% (36.0-47.0) 25.0% (36.0-47.0) Mean Corpuscular Volume 96fL (79-100) 99fL (79-100) Mean Corpuscular Hemoglobin 34pg (25-35) 34pg (25-35) Mean Corpuscular Hemoglobin Concent 35g/dL (31-37) 34g/dL (31-37) Red Cell Distribution Width 23.1% (11.5-14.5) 23.4% (11.5-14.5) Platelet Count 38x10^3/uL (140-400) 23x10^3/uL (140-400) Neutrophils (%) (Auto) 89% (31-73) 92% (31-73) Lymphocytes (%) (Auto) 10% (24-48) 8% (24-48) Monocytes (%) (Auto) 0% (0-9) 0% (0-9) Eosinophils (%) (Auto) 1% (0-3) 1% (0-3) Basophils (%) (Auto) 0% (0-3) 0% (0-3) Neutrophils # (Auto) 1.8x10^3uL (1.8-7.7) 1.9x10^3uL (1.8-7.7) Lymphocytes # (Auto) 0.2x10^3/uL (1.0-4.8) 0.2x10^3/uL (1.0-4.8) Monocytes # (Auto) 0.0x10^3/uL (0.0-1.1) 0.0x10^3/uL (0.0-1.1) Eosinophils # (Auto) 0.0x10^3/uL (0.0-0.7) 0.0x10^3/uL (0.0-0.7) Basophils # (Auto) 0.0x10^3/uL (0.0-0.2) 0.0x10^3/uL (0.0-0.2) Sodium Level 139mmol/L (136-145) 138mmol/L (136-145) Potassium Level 4.0mmol/L (3.5-5.1) 3.6mmol/L (3.5-5.1) Chloride Level 103mmol/L (98-107) 101mmol/L (98-107) Carbon Dioxide Level 28mmol/L (21-32) 30mmol/L (21-32) Anion Gap 8 (6-14) 7 (6-14) Blood Urea Nitrogen 55mg/dL (7-20) 36mg/dL (7-20) Creatinine 3.3mg/dL (0.6-1.0) 2.1mg/dL (0.6-1.0) Estimated GFR (Cockcroft-Gault) 13.9 23.5 Glucose Level 115mg/dL (70-99) 124mg/dL (70-99) Calcium Level 6.6mg/dL (8.5-10.1) 7.2mg/dL (8.5-10.1) Phosphorus Level 6.2mg/dL (2.6-4.7) 4.8mg/dL (2.6-4.7) Magnesium Level 1.6mg/dL (1.8-2.4) 1.8mg/dL (1.8-2.4) Creatine Kinase 72U/L (26-192) 69U/L (26-192) Albumin 1.7g/dL (3.4-5.0) 1.5g/dL (3.4-5.0) Segmented Neutrophils % 81% (35-66) Band Neutrophils % 12% (0-9) Lymphocytes % 7% (24-48) Nucleated Red Blood Cells 1 Hypersegmented Neutrophils Present Dohle Bodies Few Platelet Estimate Decreased (ADEQUATE) Anisocytosis Mod Macrocytosis Present Ovalocytes Few Laboratory Tests Test 12/30/16 05:20 White Blood Count 2.1x10^3/uL (4.0-11.0) Red Blood Count 2.52x10^6/uL (3.50-5.40) Hemoglobin 8.4g/dL (12.0-15.5) Hematocrit 25.0% (36.0-47.0) Mean Corpuscular Volume 99fL (79-100) Mean Corpuscular Hemoglobin 34pg (25-35) Mean Corpuscular Hemoglobin Concent 34g/dL (31-37) Red Cell Distribution Width 23.4% (11.5-14.5) Platelet Count 23x10^3/uL (140-400) Neutrophils (%) (Auto) 92% (31-73) Lymphocytes (%) (Auto) 8% (24-48) Monocytes (%) (Auto) 0% (0-9) Eosinophils (%) (Auto) 1% (0-3) Basophils (%) (Auto) 0% (0-3) Neutrophils # (Auto) 1.9x10^3uL (1.8-7.7) Lymphocytes # (Auto) 0.2x10^3/uL (1.0-4.8) Monocytes # (Auto) 0.0x10^3/uL (0.0-1.1) Eosinophils # (Auto) 0.0x10^3/uL (0.0-0.7) Basophils # (Auto) 0.0x10^3/uL (0.0-0.2) Segmented Neutrophils % 81% (35-66) Band Neutrophils % 12% (0-9) Lymphocytes % 7% (24-48) Nucleated Red Blood Cells 1 Hypersegmented Neutrophils Present Dohle Bodies Few Platelet Estimate Decreased (ADEQUATE) Anisocytosis Mod Macrocytosis Present Ovalocytes Few Sodium Level 138mmol/L (136-145) Potassium Level 3.6mmol/L (3.5-5.1) Chloride Level 101mmol/L (98-107) Carbon Dioxide Level 30mmol/L (21-32) Anion Gap 7 (6-14) Blood Urea Nitrogen 36mg/dL (7-20) Creatinine 2.1mg/dL (0.6-1.0) Estimated GFR (Cockcroft-Gault) 23.5 Glucose Level 124mg/dL (70-99) Calcium Level 7.2mg/dL (8.5-10.1) Phosphorus Level 4.8mg/dL (2.6-4.7) Magnesium Level 1.8mg/dL (1.8-2.4) Creatine Kinase 69U/L (26-192) Albumin 1.5g/dL (3.4-5.0) Microbiology 12/27/16 Blood Culture - Preliminary, Resulted NO GROWTH AFTER 2 DAYS Medications Current Medications Acetaminophen (Tylenol) 650 mg 1X ONCE PO Last administered on 12/27/16 09:11 ; Start 12/27/16 at 08:15; Stop 12/27/16 at 08:22; Status DC Diphenhydramine HCl (Benadryl) 25 mg 1X ONCE PO Last administered on 09:12; Start 12/27/16 at 08:15; Stop 12/27/16 at 08:22; Status DC Furosemide (Lasix) 20 mg 1X ONCE IVP ; Start 12/27/16 at 08:15; Stop 12/27/16 at 08:22; Status DC Fentanyl Citrate (Fentanyl 2ml Vial) 25 mcg PRN QID PRN IV PAIN; Start at 16:45; Stop 12/29/16 at 21:00; Status DC Lisinopril (Prinivil) 10 mg DAILY PO ; Start 12/28/16 at 09:00; Stop 12/28/16 at 09:00; Status DC Oxycodone/ Acetaminophen (Percocet 5/325) 1 tab Q4HRS PRN PO MILD/MODERATE PAIN ; Start 12/27/16 at 16:45 Gabapentin (Neurontin) 300 mg TID PO Last administered on 12/28/16 10:44; Start 12/27/16 at 21:00; Stop 12/28/16 at 15:23; Status DC Cetirizine HCl (Zyrtec) 10 mg PRN DAILY PRN PO ALLERGIES; Start 12/28/16 at 09: 00 Pantoprazole Sodium (Protonix) 40 mg DAILYAC PO Last administered on 12/29/16 06:04; Start 12/28/16 at 07:30 Oxycodone/ Acetaminophen 2 tab 2 tab Q4HRS PRN PO SEVERE PAIN Last administered on 12/29/16 20:26; Start 12/27/16 at 16:45 Sodium Chloride (Iv Sodium Chloride 0.9% 1000ml Bag) 1,000 ml @ 75 mls/hr [id number] IV Last administered on 12/28/16 07:12; Start 12/27/16 at 17:30; Stop 12/28/16 at 08:15; Status DC Piperacillin Sod/ Tazobactam Sod (Zosyn Per Pharmacy) 1 each PRN DAILY PRN MC SEE COMMENTS; Start 12/27/16 at 17:30; Stop 12/28/16 at 07:27; Status DC Vancomycin HCl 1 each 1 each PRN DAILY PRN MC SEE COMMENTS Last administered on 12/27/16 18:45; Start 12/27/16 at 17:30; Stop 12/27/16 at 18:51; Status DC Vancomycin HCl 2 gm/Sodium Chloride 500 ml @ 250 mls/hr 1X ONCE IV ; Start at 17:45; Stop 12/27/16 at 18:51; Status DC Piperacillin Sod/ Tazobactam Sod 3.375 gm/Sodium Chloride 50 ml @ 100 mls/hr 1X ONCE IV Last administered on 12/27/16 18:07; Start 12/27/16 at 18:00; Stop 12/27/16 at 18:29; Status DC Piperacillin Sod/ Tazobactam Sod 2.25 gm/Sodium Chloride 50 ml @ 100 mls/hr Q6HRS IV Last administered on 12/28/16 06:08; Start 12/28/16 at 00:00; Stop at 07:31; Status DC Vancomycin HCl 1.5 gm/Sodium Chloride 500 ml @ 250 mls/hr Q48H IV ; Start 12/29 at 20:00; Stop 12/29/16 at 20:00; Status DC Micafungin Sodium 100 mg/Dextrose 100 ml @ 100 mls/hr Q24H IV Last administered on 12/29/16 14:30; Start 12/28/16 at 08:00 Linezolid 300 ml @ 300 mls/hr Q12HR IV Last administered on 12/29/16 21:22; Start 12/28/16 at 09:00 Piperacillin Sod/ Tazobactam Sod 2.25 gm/Sodium Chloride 50 ml @ 100 mls/hr Q8HRS IV Last administered on 12/30/16 06:08; Start 12/28/16 at 14:00 Calcium Chloride 2000 mg/Sodium Chloride 120 ml @ 240 mls/hr 1X ONCE IV Last administered on 12/28/16 08:54; Start 12/28/16 at 08:00; Stop 12/28/16 at 08:29 ; Status DC Magnesium Sulfate/ Dextrose (Magnesium Sulfate PREMIX 2GM) 50 ml @ 25 mls/hr PRN DAILY PRN IV for Mag < 1.7 on am labs Last administered on 12/29/16 22:56 ; Start 12/28/16 at 08:15 Sodium Bicarbonate 50 meq 50 meq Q2H IV Last administered on 12/28/16 15:33; Start 12/28/16 at 08:30; Stop 12/28/16 at 10:31; Status DC Sodium Chloride 500 ml @ 0 mls/hr PRN QID PRN IV UO< 30cc/hr over previous 6hrs ; Start 12/28/16 at 08:15 Sodium Bicarbonate/ Dextrose 1,150 ml @ 100 mls/hr [id number] IV Last administered on 12/30/16 06:08; Start 12/28/16 at 09:00; Stop 12/30/16 at 08:59 ; Status DC Heparin Sodium (Porcine) (Heparin Sodium) 10,000 unit STK-MED ONCE .ROUTE ; Start 12/28/16 at 08:46; Stop 12/28/16 at 08:47; Status DC Lidocaine/Sodium Bicarbonate 20 ml 20 ml STK-MED ONCE IJ ; Start 12/28/16 at 08: 47; Stop 12/28/16 at 08:48; Status DC Heparin Sodium/ Sodium Chloride 500 ml @ As Directed STK-MED ONCE .ROUTE ; Start 12/28/16 at 08:47; Stop 12/28/16 at 08:48; Status DC Lidocaine/Sodium Bicarbonate (Buffered Lidocaine 1%) 3 ml 1X ONCE IJ Last administered on 12/28/16 10:10; Start 12/28/16 at 09:00; Stop 12/28/16 at 09:01 ; Status DC Heparin Sodium/ Sodium Chloride 60 unit 1X ONCE IV Last administered on 10:11; Start 12/28/16 at 09:00; Stop 12/28/16 at 09:01; Status DC Heparin Sodium (Porcine) (Heparin Sodium) 2,500 unit 1X ONCE INT CAT Last administered on 12/28/16 10:10; Start 12/28/16 at 09:00; Stop 12/28/16 at 09:01 ; Status DC Midazolam HCl (Versed) 2 mg STK-MED ONCE .ROUTE ; Start 12/28/16 at 09:41; Stop 12/28/16 at 09:42; Status DC Saliva Substitute (Biotene Moisturizing Mouth) 2 spray PRN Q15MIN PRN PO DRY MOUTH; Start 12/28/16 at 13:15 Gabapentin (Neurontin) 300 mg DAILY PO Last administered on 12/29/16 14:32; Start 12/29/16 at 09:00 Acetaminophen (Tylenol) 650 mg PRN Q6HRS PRN PO MILD PAIN Last administered on 12/30/16 11:05; Start 12/28/16 at 18:15 Ondansetron HCl (Zofran) 4 mg PRN Q6HRS PRN IV NAUSEA/VOMITING Last administered on 12/29/16 11:10; Start 12/29/16 at 10:45; Stop 12/29/16 at 13:53 ; Status DC Ondansetron HCl (Zofran) 8 mg PRN Q8HRS PRN IV NAUSEA/VOMITING Last administered on 12/30/16 08:12; Start 12/29/16 at 14:00 Prochlorperazine Edisylate 10 mg 10 mg 1X ONCE IV Last administered on 14:00; Start 12/29/16 at 14:00; Stop 12/29/16 at 14:01; Status DC Sodium Chloride 500 ml @ 500 mls/hr 1X ONCE IV Last administered on 23:20; Start 12/29/16 at 23:30; Stop 12/30/16 at 00:29; Status DC Sodium Chloride 500 ml @ 500 mls/hr 1X ONCE IV Last administered on 00:05; Start 12/30/16 at 00:00; Stop 12/30/16 at 00:59; Status DC Sodium Chloride 1,000 ml @ 1,000 mls/hr Q1H PRN IV hypotension; Start 12/30/16 at 08:03; Stop 12/30/16 at 14:02 Albumin Human (Albuminar) 200 ml @ 200 mls/hr 1X PRN PRN IV Hypotension Last administered on 4/20/17at 09:22; Start 12/30/16 at 08:15; Stop 12/30/16 at 14:14 Sodium Chloride (Normal Saline Flush) 10 ml 1X PRN PRN IV AP catheter pack; Start 12/30/16 at 08:15; Stop 12/31/16 at 08:14 Sodium Chloride (Normal Saline Flush) 10 ml 1X PRN PRN IV CATALYST IMPREGNATOR catheter pack; Start 12/30/16 at 08:15; Stop 12/31/16 at 08:14 Info (PHARMACY MONITORING -- do not chart) 1 each PRN DAILY PRN MC SEE COMMENTS ; Start 12/30/16 at 08:15 Info (PHARMACY MONITORING -- do not chart) 1 each PRN DAILY PRN MC SEE COMMENTS ; Start 12/30/16 at 08:15; Status UNV Paricalcitol (Zemplar) 5 mcg 3X/WEEK IV ; Start 12/31/16 at 09:00 Calcium Acetate 1334 mg 1,334 mg TIDWMEALS PO ; Start 12/30/16 at 12:00 Albumin Human (Plasmanate) 500 ml @ 120 mls/hr Q4HRS IV ; Start 12/30/16 at 12: 00; Stop 12/30/16 at 19:59 Active Scripts Active Reported Claritin (Loratadine) 10 Mg Tablet 1 Tab PO DAILY PRN Bactrim 400-80 Mg Tablet (Sulfamethoxazole/Trimethoprim) 1 Each Tablet 1 Tab PO BID Gabapentin 300 Mg Capsule 300 Mg PO TID Zestril (Lisinopril) 10 Mg Tablet 10 Mg PO DAILY Cyanocobalamin Injection (Cyanocobalamin (Vitamin B-12)) 1,000 Mcg/1 Ml Vial 1, 000 Mcg QMONTH Percocet 5-325 Mg Tablet (Oxycodone/Acetaminophen) 1 Each Tablet 1-2 Tab PO Q4- 6HRS Prilosec Otc (Omeprazole Magnesium) 20 Mg Tablet.dr 20 Mg PO DAILY Vitals/I & O Vital Sign - Last 24 Hours 12/29/16 12/29/16 12/29/16 12/29/16 13:54 15:00 19:00 20:00 Temp 97.7 99.5 97.7 99.5 Pulse 85 92 Resp 18 18 B/P 140/60 140/60 134/62 Pulse Ox 93 95 O2 Delivery Room Air Room Air Room Air 12/29/16 12/29/16 12/29/16 12/29/16 20:26 21:30 23:05 23:10 Temp 98.5 98.5 Pulse 85 80 Resp 16 16 18 B/P 85/36 81/39 Pulse Ox 91 O2 Delivery Room Air Room Air Room Air 12/29/16 12/30/16 12/30/16 12/30/16 23:49 00:05 00:43 00:55 Pulse 77 75 75 72 B/P 85/40 90/33 93/43 95/45 12/30/16 12/30/16 12/30/16 12/30/16 01:12 03:24 04:05 07:30 Temp 97.9 97.9 Pulse 70 73 70 Resp 18 B/P 97/49 96/50 115/55 Pulse Ox 92 O2 Delivery Room Air Room Air Intake and Output 12/29/16 12/29/16 12/30/16 15:00 23:00 07:00 Intake Total 1080 ml 180 ml Output Total 250 ml Balance 1080 ml -70 ml KIKE LORA MD Dec 30, 2016 13:11
[2016-12-30] MEDS: ALBUMIN HUMAN 5% 500 ML IV SCH ×2 (13:24→16:45)
[2016-12-30] MEDS: oxyCODONE/APAP 5/325 1 TAB TABLET PO PRN (13:47)
[2016-12-30] MEDS: MICAFUNGIN 100 MG in IV DEXTROSE 5% 100 ML IV SCH (13:51)
[2016-12-31 03:00] VITALS: BP 112/65
[2016-12-31] MEDS: ONDANSETRON PF 4 MG/2 ML VIAL. IV PRN (03:35)
[2016-12-31] MEDS: PIPERACILLIN/TAZOBACTAM 2.25 GM in IV NORMAL SALINE 50ML 50 ML IV SCH ×3 (06:10→21:19)
[2016-12-31 07:00] VITALS: BP 129/62
[2016-12-31 07:04] LABS: ALBUMIN 2.4 g/dL (3.4-5.0); CALCIUM 7.5 mg/dL (8.5-10.1); CREATININE 1.8 mg/dL (0.6-1.0); GFR 28.1; PHOSPHORUS 3.5 mg/dL (2.6-4.7); POTASSIUM 3.2 mmol/L (3.5-5.1)
[2016-12-31 07:05] LABS: MAGNESIUM 1.7 mg/dL (1.8-2.4)
[2016-12-31 07:10] LABS: BASO % 0 % (0-3); EOS % 0 % (0-3); HEMATOCRIT 22.4 % (36.0-47.0); HEMOGLOBIN 7.6 g/dL (12.0-15.5); LYMPH # 0.2 x10^3/uL (1.0-4.8); LYMPH % 10 % (24-48); MEAN CORPUSCULAR HEMOGLOBIN 34 pg (25-35); MEAN CORPUSCULAR HGB CONC 34 g/dL (31-37); MEAN CORPUSCULAR VOLUME 100 fL (79-100); MONO % 1 % (0-9); NEUT % 89 % (31-73); RED BLOOD COUNT 2.24 x10^6/uL (3.50-5.40); RED CELL DISTRIBUTION WIDTH 22.9 % (11.5-14.5)
[2016-12-31 07:14] LABS: PLATELET COUNT 12 x10^3/uL (140-400)
[2016-12-31] MEDS ORDERED: PROCHLORPERAZINE 10 MG/2 ML VIAL. IM PRN (09:00)
[2016-12-31] MEDS: MICAFUNGIN 100 MG in IV DEXTROSE 5% 100 ML IV SCH (09:13)
[2016-12-31] MEDS: GABAPENTIN 300 MG CAPSULE. PO SCH (09:14)
[2016-12-31] MEDS: PARICALCITOL 5 MCG/ML VIAL. IV SCH (09:14)
[2016-12-31] MEDS: PANTOPRAZOLE 40 MG TABLET.DR. PO SCH (09:14)
[2016-12-31] MEDS: CALCIUM ACETATE 667 MG CAPSULE PO SCH ×3 (09:14→17:00)
[2016-12-31 10:06] LABS: BILIRUBIN,URINE SMALL (NEG); GLUCOSE,URINE NEGATIVE (NEG); NITRITE,URINE NEGATIVE (NEG); PROTEIN,URINE 100 mg/dL (NEG-TRACE); UROBILINOGEN,URINE 0.2 mg/dL (0.2 mg/dL)
[2016-12-31 10:07] LABS: BACTERIA,URINE 0 /HPF (0-FEW); RBC,URINE TNTC /HPF (0-2)
--- NOTE | 2016-12-31 10:09 | PDOC ---
Subjective: Subjective: Onc f/u- Cholangiocarcinoma Very fatigued No appetite Ongoing nausea LE edema continues Concerned about other options for chemo and if cancer growing Objective: Vital Signs: Vital Signs Date Time Temp Pulse Resp B/P Pulse Ox O2 Delivery O2 Flow Rate FiO2 12/31/16 09:46 Room Air 12/31/16 07:00 97.8 65 18 129/62 95 97.8 Physical Exam: Extremities: Other (2+ edema Bilateral LE unchanged) General: Alert, Oriented X3, Cooperative, No acute distress, Other (very fatigued) Lungs: Other (no resp distress) Psych/Mental Status: Mental status NL, Mood NL Skin: Other (erythema improving) Labs/Imaging: CBC reviewed- continues trending down Cr improving Assessment/Plan A/P: 1. Cholangiocarcinoma stage 4. Has been on Gemzar and Xeloda for some time, last treatment was given on 12/24/2016. Hold further chemotherapy in view of cellulitis and renal failure, which are likely gemzar induced. PET and scans planned with Dr. Connell as outpt. No further tx until over acite events. 2. Acute renal failure. Continuing hemodialysis temporarily, again today. 3. Hypoalbuminemia due to malnutrition from malignancy. 4. Cellulitis, more likely capillary leak from gemzar. U/S neg for DVT 12/28/16 at [facility]. On antibiotics empirically per ID. 5. Pancytopenia, likely chemo related. Worsening. Previously when had chemo related toxicity, experienced delayed tyson and need for transfusions for a few days. Likely to need transfusion tomorrow of plt. Please transfuse for plt < 10 , hgb < 7. Dr. Baker will be covering this weekend if any acute issues arise. Dr. Connell will return Tuesday. ИВАН HENDRICKS DO Dec 31, 2016 10:09
--- NOTE | 2016-12-31 10:42 | PDOC ---
Infectious Disease Note Subjective Subjective Nausea ROS ROS GEN: Denies fevers, chills, sweats HEENT: Denies blurred vision, sore throat CV: Denies chest pain RESP: Denies shortness of air, cough GI: Denies n/v/d NEURO: Denies confusion, dizziness MSK: Denies weakness, joint pain/swelling Vital Sign Vital Signs Vital Signs Date Time Temp Pulse Resp B/P Pulse Ox O2 Delivery O2 Flow Rate FiO2 12/31/16 09:46 Room Air 12/31/16 07:00 97.8 65 18 129/62 95 97.8 Physical Exam PHYSICAL EXAM GENERAL: NAD, Alert. In bed HEENT: PERRL, OC/OP - clear NECK: Supple, no JVD, no LN LUNGS: Clear HEART: S1S2, no gallop, no murmur ABD: Soft, NT, no organomegaly, no rebound, obese EXT: RLE much improved with less erythema/pain and edema, Wound clean. no cyanosis. LLE mild edema. + Petechie medial aspect HARNESS [employer]TER: Alert, 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 SKIN: No rash IV: Left IJ HD and right port Labs Lab Laboratory Tests Test 12/31/16 06:17 12/31/16 06:20 Urine Collection Type U cath Urine Color Shari Urine Clarity Turbid Urine pH 5.0 Urine Specific [place] >=1.030 Urine Protein 100mg/dL (NEG-TRACE) Urine Glucose (UA) Negativemg/dL (NEG) Urine Ketones (Stick) Tracemg/dL (NEG) Urine Blood Large (NEG) Urine Nitrite Negative (NEG) Urine Bilirubin Small (NEG) Urine Urobilinogen Dipstick 0.2mg/dL (0.2 mg/dL) Urine Leukocyte Esterase Small (NEG) Urine RBC Tntc/HPF (0-2) Urine WBC 1-4/HPF (0-4) Urine Bacteria 0/HPF (0-FEW) White Blood Count 2.0x10^3/uL (4.0-11.0) Red Blood Count 2.24x10^6/uL (3.50-5.40) Hemoglobin 7.6g/dL (12.0-15.5) Hematocrit 22.4% (36.0-47.0) Mean Corpuscular Volume 100fL (79-100) Mean Corpuscular Hemoglobin 34pg (25-35) Mean Corpuscular Hemoglobin Concent 34g/dL (31-37) Red Cell Distribution Width 22.9% (11.5-14.5) Platelet Count 12x10^3/uL (140-400) Neutrophils (%) (Auto) 89% (31-73) Lymphocytes (%) (Auto) 10% (24-48) Monocytes (%) (Auto) 1% (0-9) Eosinophils (%) (Auto) 0% (0-3) Basophils (%) (Auto) 0% (0-3) Neutrophils # (Auto) 1.8x10^3uL (1.8-7.7) Lymphocytes # (Auto) 0.2x10^3/uL (1.0-4.8) Monocytes # (Auto) 0.0x10^3/uL (0.0-1.1) Eosinophils # (Auto) 0.0x10^3/uL (0.0-0.7) Basophils # (Auto) 0.0x10^3/uL (0.0-0.2) Sodium Level 140mmol/L (136-145) Potassium Level 3.2mmol/L (3.5-5.1) Chloride Level 103mmol/L (98-107) Carbon Dioxide Level 31mmol/L (21-32) Anion Gap 6 (6-14) Blood Urea Nitrogen 23mg/dL (7-20) Creatinine 1.8mg/dL (0.6-1.0) Estimated GFR (Cockcroft-Gault) 28.1 Glucose Level 109mg/dL (70-99) Calcium Level 7.5mg/dL (8.5-10.1) Phosphorus Level 3.5mg/dL (2.6-4.7) Magnesium Level 1.7mg/dL (1.8-2.4) Creatine Kinase 44U/L (26-192) Albumin 2.4g/dL (3.4-5.0) Objective Assessment Right LE cellulitis - better ARTURO and electrolyte abnormalities - better s/p HD Pancytopenia - too early for abx to be involved mild encephalopathy - improved but twitch continues? electrolyte disturbance, ? met Cholangiocarcinoma s/p chemo 12/24 Plan Plan of Care Cont Zosyn D/c Zyvox/Micafungin may help nausea Monitor blood counts F/u labs D/w family RAHEEM TY MD Dec 31, 2016 10:42
[2016-12-31 11:00] VITALS: BP 139/61
[2016-12-31] MEDS ORDERED: METOCLOPRAMIDE HCL 10 MG/2 ML VIAL. IV PRN (11:45)
--- NOTE | 2016-12-31 14:07 | PDOC ---
PROGRESS NOTES Chief Complaint Chief Complaint acute metabolic encephalopathy, 2/2 ARTURO likely cellulitis BLE, diffuse, vs. side effect of gemzar causing edema Acute renal failure, oliguric ATN 2/2 gemzar hyperkalemia, gap metabolic acidosis, uremia GERD peripheral neuropathy cholangiocarcinoma STAGE 4 obesity hypomagnesemia pancytopenia 2/2 chemo N/V, diarrhea with chemo , ARTURO, HD severe malnutrition plan: fu with renal, onco, id on multiple abx, zosyn, OFF ZYVOX and micofungin as per id cont HD now ptot monitor urine output gi ppx check cdiff add reglan, zofran for nausea History of Present Illness History of Present Illness feels N/V and diarrhea for 2 days low urine output 200mls 24 hours, and dark despite IV fluids pancytopenia tremor better HD 12/28, 12/29, 12/30, 12/31 Vitals Vitals Vital Signs Date Time Temp Pulse Resp B/P Pulse Ox O2 Delivery O2 Flow Rate FiO2 12/31/16 11:00 97.5 69 18 139/61 94 Room Air 97.5 Physical Exam General: Alert, Oriented X3, Cooperative, No acute distress, Other (very fatigued) Heart: Normal S1, Normal S2 Lungs: Clear, Crackles, Other Abdomen: Normal bowel sounds, Soft, No tenderness Extremities: Other (2+ edema Bilateral LE unchanged) Skin: Other (erythema improving) Labs LABS Laboratory Tests Test 12/31/16 06:17 12/31/16 06:20 Urine Collection Type U cath Urine Color Shari Urine Clarity Turbid Urine pH 5.0 Urine Specific [place] >=1.030 Urine Protein 100mg/dL (NEG-TRACE) Urine Glucose (UA) Negativemg/dL (NEG) Urine Ketones (Stick) Tracemg/dL (NEG) Urine Blood Large (NEG) Urine Nitrite Negative (NEG) Urine Bilirubin Small (NEG) Urine Urobilinogen Dipstick 0.2mg/dL (0.2 mg/dL) Urine Leukocyte Esterase Small (NEG) Urine RBC Tntc/HPF (0-2) Urine WBC 1-4/HPF (0-4) Urine Bacteria 0/HPF (0-FEW) White Blood Count 2.0x10^3/uL (4.0-11.0) Red Blood Count 2.24x10^6/uL (3.50-5.40) Hemoglobin 7.6g/dL (12.0-15.5) Hematocrit 22.4% (36.0-47.0) Mean Corpuscular Volume 100fL (79-100) Mean Corpuscular Hemoglobin 34pg (25-35) Mean Corpuscular Hemoglobin Concent 34g/dL (31-37) Red Cell Distribution Width 22.9% (11.5-14.5) Platelet Count 12x10^3/uL (140-400) Neutrophils (%) (Auto) 89% (31-73) Lymphocytes (%) (Auto) 10% (24-48) Monocytes (%) (Auto) 1% (0-9) Eosinophils (%) (Auto) 0% (0-3) Basophils (%) (Auto) 0% (0-3) Neutrophils # (Auto) 1.8x10^3uL (1.8-7.7) Lymphocytes # (Auto) 0.2x10^3/uL (1.0-4.8) Monocytes # (Auto) 0.0x10^3/uL (0.0-1.1) Eosinophils # (Auto) 0.0x10^3/uL (0.0-0.7) Basophils # (Auto) 0.0x10^3/uL (0.0-0.2) Sodium Level 140mmol/L (136-145) Potassium Level 3.2mmol/L (3.5-5.1) Chloride Level 103mmol/L (98-107) Carbon Dioxide Level 31mmol/L (21-32) Anion Gap 6 (6-14) Blood Urea Nitrogen 23mg/dL (7-20) Creatinine 1.8mg/dL (0.6-1.0) Estimated GFR (Cockcroft-Gault) 28.1 Glucose Level 109mg/dL (70-99) Calcium Level 7.5mg/dL (8.5-10.1) Phosphorus Level 3.5mg/dL (2.6-4.7) Magnesium Level 1.7mg/dL (1.8-2.4) Creatine Kinase 44U/L (26-192) Albumin 2.4g/dL (3.4-5.0) Review of Systems Review of Systems no fever, chills, sob or chest pain Assessment and Plan Assessmemt and Plan Problems Medical Problems: (1) Cellulitis Status: Acute Problems: Comment Review of Relevant I have reviewed the following items ketty (where applicable) has been applied. Labs Laboratory Tests Test 12/29/16 20:45 12/30/16 05:20 12/31/16 06:17 12/31/16 06:20 Clostridium difficile Toxin (PCR) Negative (Negative) White Blood Count 2.1x10^3/uL (4.0-11.0) 2.0x10^3/uL (4.0-11.0) Red Blood Count 2.52x10^6/uL (3.50-5.40) 2.24x10^6/uL (3.50-5.40) Hemoglobin 8.4g/dL (12.0-15.5) 7.6g/dL (12.0-15.5) Hematocrit 25.0% (36.0-47.0) 22.4% (36.0-47.0) Mean Corpuscular Volume 99fL (79-100) 100fL (79-100) Mean Corpuscular Hemoglobin 34pg (25-35) 34pg (25-35) Mean Corpuscular Hemoglobin Concent 34g/dL (31-37) 34g/dL (31-37) Red Cell Distribution Width 23.4% (11.5-14.5) 22.9% (11.5-14.5) Platelet Count 23x10^3/uL (140-400) 12x10^3/uL (140-400) Neutrophils (%) (Auto) 92% (31-73) 89% (31-73) Lymphocytes (%) (Auto) 8% (24-48) 10% (24-48) Monocytes (%) (Auto) 0% (0-9) 1% (0-9) Eosinophils (%) (Auto) 1% (0-3) 0% (0-3) Basophils (%) (Auto) 0% (0-3) 0% (0-3) Neutrophils # (Auto) 1.9x10^3uL (1.8-7.7) 1.8x10^3uL (1.8-7.7) Lymphocytes # (Auto) 0.2x10^3/uL (1.0-4.8) 0.2x10^3/uL (1.0-4.8) Monocytes # (Auto) 0.0x10^3/uL (0.0-1.1) 0.0x10^3/uL (0.0-1.1) Eosinophils # (Auto) 0.0x10^3/uL (0.0-0.7) 0.0x10^3/uL (0.0-0.7) Basophils # (Auto) 0.0x10^3/uL (0.0-0.2) 0.0x10^3/uL (0.0-0.2) Segmented Neutrophils % 81% (35-66) Band Neutrophils % 12% (0-9) Lymphocytes % 7% (24-48) Nucleated Red Blood Cells 1 Hypersegmented Neutrophils Present Dohle Bodies Few Platelet Estimate Decreased (ADEQUATE) Anisocytosis Mod Macrocytosis Present Ovalocytes Few Sodium Level 138mmol/L (136-145) 140mmol/L (136-145) Potassium Level 3.6mmol/L (3.5-5.1) 3.2mmol/L (3.5-5.1) Chloride Level 101mmol/L (98-107) 103mmol/L (98-107) Carbon Dioxide Level 30mmol/L (21-32) 31mmol/L (21-32) Anion Gap 7 (6-14) 6 (6-14) Blood Urea Nitrogen 36mg/dL (7-20) 23mg/dL (7-20) Creatinine 2.1mg/dL (0.6-1.0) 1.8mg/dL (0.6-1.0) Estimated GFR (Cockcroft-Gault) 23.5 28.1 Glucose Level 124mg/dL (70-99) 109mg/dL (70-99) Calcium Level 7.2mg/dL (8.5-10.1) 7.5mg/dL (8.5-10.1) Phosphorus Level 4.8mg/dL (2.6-4.7) 3.5mg/dL (2.6-4.7) Magnesium Level 1.8mg/dL (1.8-2.4) 1.7mg/dL (1.8-2.4) Creatine Kinase 69U/L (26-192) 44U/L (26-192) Albumin 1.5g/dL (3.4-5.0) 2.4g/dL (3.4-5.0) Urine Collection Type U cath Urine Color Shari Urine Clarity Turbid Urine pH 5.0 Urine Specific [place] >=1.030 Urine Protein 100mg/dL (NEG-TRACE) Urine Glucose (UA) Negativemg/dL (NEG) Urine Ketones (Stick) Tracemg/dL (NEG) Urine Blood Large (NEG) Urine Nitrite Negative (NEG) Urine Bilirubin Small (NEG) Urine Urobilinogen Dipstick 0.2mg/dL (0.2 mg/dL) Urine Leukocyte Esterase Small (NEG) Urine RBC Tntc/HPF (0-2) Urine WBC 1-4/HPF (0-4) Urine Bacteria 0/HPF (0-FEW) Laboratory Tests Test 12/31/16 06:17 12/31/16 06:20 Urine Collection Type U cath Urine Color Shari Urine Clarity Turbid Urine pH 5.0 Urine Specific [place] >=1.030 Urine Protein 100mg/dL (NEG-TRACE) Urine Glucose (UA) Negativemg/dL (NEG) Urine Ketones (Stick) Tracemg/dL (NEG) Urine Blood Large (NEG) Urine Nitrite Negative (NEG) Urine Bilirubin Small (NEG) Urine Urobilinogen Dipstick 0.2mg/dL (0.2 mg/dL) Urine Leukocyte Esterase Small (NEG) Urine RBC Tntc/HPF (0-2) Urine WBC 1-4/HPF (0-4) Urine Bacteria 0/HPF (0-FEW) White Blood Count 2.0x10^3/uL (4.0-11.0) Red Blood Count 2.24x10^6/uL (3.50-5.40) Hemoglobin 7.6g/dL (12.0-15.5) Hematocrit 22.4% (36.0-47.0) Mean Corpuscular Volume 100fL (79-100) Mean Corpuscular Hemoglobin 34pg (25-35) Mean Corpuscular Hemoglobin Concent 34g/dL (31-37) Red Cell Distribution Width 22.9% (11.5-14.5) Platelet Count 12x10^3/uL (140-400) Neutrophils (%) (Auto) 89% (31-73) Lymphocytes (%) (Auto) 10% (24-48) Monocytes (%) (Auto) 1% (0-9) Eosinophils (%) (Auto) 0% (0-3) Basophils (%) (Auto) 0% (0-3) Neutrophils # (Auto) 1.8x10^3uL (1.8-7.7) Lymphocytes # (Auto) 0.2x10^3/uL (1.0-4.8) Monocytes # (Auto) 0.0x10^3/uL (0.0-1.1) Eosinophils # (Auto) 0.0x10^3/uL (0.0-0.7) Basophils # (Auto) 0.0x10^3/uL (0.0-0.2) Sodium Level 140mmol/L (136-145) Potassium Level 3.2mmol/L (3.5-5.1) Chloride Level 103mmol/L (98-107) Carbon Dioxide Level 31mmol/L (21-32) Anion Gap 6 (6-14) Blood Urea Nitrogen 23mg/dL (7-20) Creatinine 1.8mg/dL (0.6-1.0) Estimated GFR (Cockcroft-Gault) 28.1 Glucose Level 109mg/dL (70-99) Calcium Level 7.5mg/dL (8.5-10.1) Phosphorus Level 3.5mg/dL (2.6-4.7) Magnesium Level 1.7mg/dL (1.8-2.4) Creatine Kinase 44U/L (26-192) Albumin 2.4g/dL (3.4-5.0) Microbiology 12/27/16 Blood Culture - Preliminary, Resulted NO GROWTH AFTER 3 DAYS Medications Current Medications Acetaminophen (Tylenol) 650 mg 1X ONCE PO Last administered on 12/27/16 09:11 ; Start 12/27/16 at 08:15; Stop 12/27/16 at 08:22; Status DC Diphenhydramine HCl (Benadryl) 25 mg 1X ONCE PO Last administered on 09:12; Start 12/27/16 at 08:15; Stop 12/27/16 at 08:22; Status DC Furosemide (Lasix) 20 mg 1X ONCE IVP ; Start 12/27/16 at 08:15; Stop 12/27/16 at 08:22; Status DC Fentanyl Citrate (Fentanyl 2ml Vial) 25 mcg PRN QID PRN IV PAIN; Start at 16:45; Stop 12/29/16 at 21:00; Status DC Lisinopril (Prinivil) 10 mg DAILY PO ; Start 12/28/16 at 09:00; Stop 12/28/16 at 09:00; Status DC Oxycodone/ Acetaminophen (Percocet 5/325) 1 tab Q4HRS PRN PO MILD/MODERATE PAIN ; Start 12/27/16 at 16:45 Gabapentin (Neurontin) 300 mg TID PO Last administered on 12/28/16 10:44; Start 12/27/16 at 21:00; Stop 12/28/16 at 15:23; Status DC Cetirizine HCl (Zyrtec) 10 mg PRN DAILY PRN PO ALLERGIES; Start 12/28/16 at 09: 00 Pantoprazole Sodium (Protonix) 40 mg DAILYAC PO Last administered on 12/31/16 09:14; Start 12/28/16 at 07:30 Oxycodone/ Acetaminophen 2 tab 2 tab Q4HRS PRN PO SEVERE PAIN Last administered on 12/30/16 13:47; Start 12/27/16 at 16:45 Sodium Chloride (Iv Sodium Chloride 0.9% 1000ml Bag) 1,000 ml @ 75 mls/hr [id number] IV Last administered on 12/28/16 07:12; Start 12/27/16 at 17:30; Stop 12/28/16 at 08:15; Status DC Piperacillin Sod/ Tazobactam Sod (Zosyn Per Pharmacy) 1 each PRN DAILY PRN MC SEE COMMENTS; Start 12/27/16 at 17:30; Stop 12/28/16 at 07:27; Status DC Vancomycin HCl 1 each 1 each PRN DAILY PRN MC SEE COMMENTS Last administered on 12/27/16 18:45; Start 12/27/16 at 17:30; Stop 12/27/16 at 18:51; Status DC Vancomycin HCl 2 gm/Sodium Chloride 500 ml @ 250 mls/hr 1X ONCE IV ; Start at 17:45; Stop 12/27/16 at 18:51; Status DC Piperacillin Sod/ Tazobactam Sod 3.375 gm/Sodium Chloride 50 ml @ 100 mls/hr 1X ONCE IV Last administered on 12/27/16 18:07; Start 12/27/16 at 18:00; Stop 12/27/16 at 18:29; Status DC Piperacillin Sod/ Tazobactam Sod 2.25 gm/Sodium Chloride 50 ml @ 100 mls/hr Q6HRS IV Last administered on 12/28/16 06:08; Start 12/28/16 at 00:00; Stop at 07:31; Status DC Vancomycin HCl 1.5 gm/Sodium Chloride 500 ml @ 250 mls/hr Q48H IV ; Start 12/29 at 20:00; Stop 12/29/16 at 20:00; Status DC Micafungin Sodium 100 mg/Dextrose 100 ml @ 100 mls/hr Q24H IV Last administered on 12/31/16 09:13; Start 12/28/16 at 08:00; Stop 12/31/16 at 10:43 ; Status DC Linezolid 300 ml @ 300 mls/hr Q12HR IV Last administered on 12/31/16 09:13; Start 12/28/16 at 09:00; Stop 12/31/16 at 10:43; Status DC Piperacillin Sod/ Tazobactam Sod 2.25 gm/Sodium Chloride 50 ml @ 100 mls/hr Q8HRS IV Last administered on 12/31/16 06:10; Start 12/28/16 at 14:00 Calcium Chloride 2000 mg/Sodium Chloride 120 ml @ 240 mls/hr 1X ONCE IV Last administered on 12/28/16 08:54; Start 12/28/16 at 08:00; Stop 12/28/16 at 08:29 ; Status DC Magnesium Sulfate/ Dextrose (Magnesium Sulfate PREMIX 2GM) 50 ml @ 25 mls/hr PRN DAILY PRN IV for Mag < 1.7 on am labs Last administered on 12/29/16 22:56 ; Start 12/28/16 at 08:15 Sodium Bicarbonate 50 meq 50 meq Q2H IV Last administered on 12/28/16 15:33; Start 12/28/16 at 08:30; Stop 12/28/16 at 10:31; Status DC Sodium Chloride 500 ml @ 0 mls/hr PRN QID PRN IV UO< 30cc/hr over previous 6hrs ; Start 12/28/16 at 08:15 Sodium Bicarbonate/ Dextrose 1,150 ml @ 100 mls/hr [id number] IV Last administered on 12/30/16 06:08; Start 12/28/16 at 09:00; Stop 12/30/16 at 08:59 ; Status DC Heparin Sodium (Porcine) (Heparin Sodium) 10,000 unit STK-MED ONCE .ROUTE ; Start 12/28/16 at 08:46; Stop 12/28/16 at 08:47; Status DC Lidocaine/Sodium Bicarbonate 20 ml 20 ml STK-MED ONCE IJ ; Start 12/28/16 at 08: 47; Stop 12/28/16 at 08:48; Status DC Heparin Sodium/ Sodium Chloride 500 ml @ As Directed STK-MED ONCE .ROUTE ; Start 12/28/16 at 08:47; Stop 12/28/16 at 08:48; Status DC Lidocaine/Sodium Bicarbonate (Buffered Lidocaine 1%) 3 ml 1X ONCE IJ Last administered on 12/28/16 10:10; Start 12/28/16 at 09:00; Stop 12/28/16 at 09:01 ; Status DC Heparin Sodium/ Sodium Chloride 60 unit 1X ONCE IV Last administered on 10:11; Start 12/28/16 at 09:00; Stop 12/28/16 at 09:01; Status DC Heparin Sodium (Porcine) (Heparin Sodium) 2,500 unit 1X ONCE INT CAT Last administered on 12/28/16 10:10; Start 12/28/16 at 09:00; Stop 12/28/16 at 09:01 ; Status DC Midazolam HCl (Versed) 2 mg STK-MED ONCE .ROUTE ; Start 12/28/16 at 09:41; Stop 12/28/16 at 09:42; Status DC Saliva Substitute (Biotene Moisturizing Mouth) 2 spray PRN Q15MIN PRN PO DRY MOUTH; Start 12/28/16 at 13:15 Gabapentin (Neurontin) 300 mg DAILY PO Last administered on 12/31/16 09:14; Start 12/29/16 at 09:00 Acetaminophen (Tylenol) 650 mg PRN Q6HRS PRN PO MILD PAIN Last administered on 12/30/16 23:23; Start 12/28/16 at 18:15 Ondansetron HCl (Zofran) 4 mg PRN Q6HRS PRN IV NAUSEA/VOMITING Last administered on 12/29/16 11:10; Start 12/29/16 at 10:45; Stop 12/29/16 at 13:53 ; Status DC Ondansetron HCl (Zofran) 8 mg PRN Q8HRS PRN IV NAUSEA/VOMITING Last administered on 12/31/16 03:35; Start 12/29/16 at 14:00; Stop 12/31/16 at 09:03 ; Status DC Prochlorperazine Edisylate 10 mg 10 mg 1X ONCE IV Last administered on 14:00; Start 12/29/16 at 14:00; Stop 12/29/16 at 14:01; Status DC Sodium Chloride 500 ml @ 500 mls/hr 1X ONCE IV Last administered on 23:20; Start 12/29/16 at 23:30; Stop 12/30/16 at 00:29; Status DC Sodium Chloride 500 ml @ 500 mls/hr 1X ONCE IV Last administered on 00:05; Start 12/30/16 at 00:00; Stop 12/30/16 at 00:59; Status DC Sodium Chloride 1,000 ml @ 1,000 mls/hr Q1H PRN IV hypotension; Start 12/30/16 at 08:03; Stop 12/30/16 at 14:02; Status DC Albumin Human (Albuminar) 200 ml @ 200 mls/hr 1X PRN PRN IV Hypotension Last administered on 12/30/16 09:22; Start 12/30/16 at 08:15; Stop 12/30/16 at 14:14 ; Status DC Sodium Chloride (Normal Saline Flush) 10 ml 1X PRN PRN IV AP catheter pack; Start 12/30/16 at 08:15; Stop 12/31/16 at 08:14; Status DC Sodium Chloride (Normal Saline Flush) 10 ml 1X PRN PRN IV NON DESTRUCTIVE TESTER catheter pack; Start 12/30/16 at 08:15; Stop 12/31/16 at 08:14; Status DC Info (PHARMACY MONITORING -- do not chart) 1 each PRN DAILY PRN MC SEE COMMENTS ; Start 12/30/16 at 08:15 Info (PHARMACY MONITORING -- do not chart) 1 each PRN DAILY PRN MC SEE COMMENTS ; Start 12/30/16 at 08:15; Status UNV Paricalcitol (Zemplar) 5 mcg 3X/WEEK IV Last administered on 12/31/16 09:14; Start 12/31/16 at 09:00 Calcium Acetate 1334 mg 1,334 mg TIDWMEALS PO Last administered on 12/31/16 09 :14; Start 12/30/16 at 12:00 Albumin Human (Plasmanate) 500 ml @ 120 mls/hr Q4HRS IV Last administered on 16:45; Start 12/30/16 at 12:00; Stop 12/30/16 at 19:59; Status DC Ondansetron HCl (Zofran) 8 mg PRN Q6HRS PRN IV NAUSEA/VOMITING; Start 12/31/16 at 08:58 Lorazepam (Ativan) 0.5 mg PRN Q4HRS PRN IV ANXIETY / AGITATION; Start 12/31/16 at 09:00 Prochlorperazine Edisylate (Compazine) 10 mg PRN Q6HRS PRN IM NAUSEA/VOMITING Last administered on 12/31/16 09:15; Start 12/31/16 at 09:00 Metoclopramide HCl (Reglan) 5 mg PRN Q6HRS PRN IV NAUSEA/VOMITING; Start at 11:45 Active Scripts Active Reported Claritin (Loratadine) 10 Mg Tablet 1 Tab PO DAILY PRN Bactrim 400-80 Mg Tablet (Sulfamethoxazole/Trimethoprim) 1 Each Tablet 1 Tab PO BID Gabapentin 300 Mg Capsule 300 Mg PO TID Zestril (Lisinopril) 10 Mg Tablet 10 Mg PO DAILY Cyanocobalamin Injection (Cyanocobalamin (Vitamin B-12)) 1,000 Mcg/1 Ml Vial 1, 000 Mcg QMONTH Percocet 5-325 Mg Tablet (Oxycodone/Acetaminophen) 1 Each Tablet 1-2 Tab PO Q4- 6HRS Prilosec Otc (Omeprazole Magnesium) 20 Mg Tablet.dr 20 Mg PO DAILY Vitals/I & O Vital Sign - Last 24 Hours 12/30/16 12/30/16 12/30/16 12/30/16 14:50 14:54 19:00 20:00 Temp 97.9 97.7 97.9 97.7 Pulse 74 70 Resp 18 B/P 122/59 115/71 Pulse Ox 96 93 O2 Delivery Room Air Room Air Room Air Room Air 12/30/16 12/31/16 12/31/16 12/31/16 23:00 03:00 07:00 08:10 Temp 97.5 97.9 97.8 97.5 97.9 97.8 Pulse 71 69 65 Resp 18 B/P 123/77 112/65 129/62 Pulse Ox 93 93 95 O2 Delivery Room Air Room Air Room Air Room Air 12/31/16 12/31/16 09:46 11:00 Temp 97.5 97.5 Pulse 69 Resp 18 B/P 139/61 Pulse Ox 94 O2 Delivery Room Air Room Air Intake and Output 12/30/16 12/30/16 12/31/16 15:00 23:00 07:00 Intake Total 100 ml Output Total 200 ml Balance -100 ml KIKE LORA MD Dec 31, 2016 14:06
--- NOTE | 2016-12-31 14:59 | PDOC ---
SUBJECTIVE ROS ARTURO/ ATN Doing a little better today CVS: no Orthopnea, no CP RESP: no SOB, no SEGUNDO GI: on Nausea, no Vomiting : no Dysuria, no Urgency OBJECTIVE Vital Signs Vital Signs Date Time Temp Pulse Resp B/P Pulse Ox O2 Delivery O2 Flow Rate FiO2 12/31/16 11:00 97.5 69 18 139/61 94 Room Air 97.5 I & 0 Intake and Output 12/31/16 07:00 Intake Total 100 ml Output Total 200 ml Balance -100 ml Intake Oral 100 ml Output Urine Total 200 ml # Voids 1 # Bowel Movements 1 PHYSICAL EXAM Physical Exam GEN: Awake, Oriented x 3, In no distress EYES: Vision Unchanged, Conjunctiva Normal EN: No EN Drainage, Mucous Membranes moist NECK: no JVD, no JVP, Supple, no Thyromegaly CVS: S1S2, no Murmur, No Gallop, No Rub,+ Edema RESP: no Rales, no Rhonchi,no Acc. Muscle Use GI: BS + ve, NO Bruit, Non Tender, Non Distended : no CVA tenderness, no Suprapubic Tenderness DIAGNOSIS/ASSESSMENT Assessment & Plan ARF/ ATN : Current fluid and E-lyte status does not necessitate emergent need for dialysis. Will re-evaluate for dialysis in the am ANEMIA; defer to Dr Ko brumfield to treat in setting of Active Canecre HTN: Current BP meds as reviewed. See orders for changes. Edema - ? due to LIver Dysfucntion vs due to HypoAlbuminemia H/o CholangioCa - Chemo etc per Dr Ko Rahman K - Replace PO Low Axel - now better some ^Phos - Better with Phoslo SEv HypoALbuminemia - ? due to POOR PO intake vs due to Liver dysfucntion. UA is not suggestive of Neph Syndroem. Ogoing Hematuria - ? ATN Discussed Plan of Care with family at bedside Problems: COMMENT/RELEVANT DATA Meds Current Medications Medications (Trade) Dose Ordered Sig/Shahab Start Time Stop Time Status Last Admin Dose Admin Acetaminophen (Tylenol) 650 mg PRN Q6HRS PRN 12/28/16 18:15 12/30/16 23:23 650 MG Albumin Human (Albuminar) 200 ml @ 200 mls/hr 1X PRN PRN 12/30/16 08:15 12/30/16 14:14 DC 12/30/16 09:22 200 MLS/HR Albumin Human (Plasmanate) 500 ml @ 120 mls/hr Q4HRS 12/30/16 12:00 12/30/16 19:59 DC 12/30/16 16:45 120 MLS/HR Calcium Acetate 1334 mg 1,334 mg TIDWMEALS 12/30/16 12:00 12/31/16 09:14 1,334 MG Calcium Chloride/ Sodium Chloride (Iv Sodium Chloride 0.9% 100ml) 120 ml @ 240 mls/hr 1X ONCE 12/28/16 08:00 12/28/16 08:29 DC 12/28/16 08:54 240 MLS/HR Cetirizine HCl (Zyrtec) 10 mg PRN DAILY PRN 12/28/16 09:00 Diphenhydramine HCl (Benadryl) 25 mg 1X ONCE 12/27/16 08:15 12/27/16 08:22 DC 12/27/16 09:12 25 MG Fentanyl Citrate (Fentanyl 2ml Vial) 25 mcg PRN QID PRN 12/27/16 16:45 12/29/16 21:00 DC Furosemide (Lasix) 20 mg 1X ONCE 12/27/16 08:15 12/27/16 08:22 DC Gabapentin (Neurontin) 300 mg DAILY 12/29/16 09:00 12/31/16 09:14 300 MG Heparin Sodium (Porcine) (Heparin Sodium) 2,500 unit 1X ONCE 12/28/16 09:00 12/28/16 09:01 DC 12/28/16 10:10 2,800 UNIT Heparin Sodium/ Sodium Chloride 60 unit 1X ONCE 12/28/16 09:00 12/28/16 09:01 DC 12/28/16 10:11 60 UNIT Info (PHARMACY MONITORING -- do not chart) 1 each PRN DAILY PRN 12/30/16 08:15 UNV Lidocaine/Sodium Bicarbonate (Buffered Lidocaine 1%) 3 ml 1X ONCE 12/28/16 09:00 12/28/16 09:01 DC 12/28/16 10:10 3 ML Linezolid 300 ml @ 300 mls/hr Q12HR 12/28/16 09:00 12/31/16 10:43 DC 12/31/16 09:13 300 MLS/HR Lisinopril (Prinivil) 10 mg DAILY 12/28/16 09:00 12/28/16 09:00 DC Lorazepam (Ativan) 0.5 mg PRN Q4HRS PRN 12/31/16 09:00 Magnesium Sulfate/ Dextrose (Magnesium Sulfate PREMIX 2GM) 50 ml @ 25 mls/hr 1X ONCE 12/31/16 15:00 12/31/16 16:59 Metoclopramide HCl 5 mg 5 mg PRN Q6HRS PRN 12/31/16 11:45 Micafungin Sodium 100 mg/Dextrose 100 ml @ 100 mls/hr Q24H 12/28/16 08:00 12/31/16 10:43 DC 12/31/16 09:13 100 MLS/HR Midazolam HCl (Versed) 2 mg STK-MED ONCE 12/28/16 09:41 12/28/16 09:42 DC Ondansetron HCl (Zofran) 8 mg PRN Q6HRS PRN 12/31/16 08:58 Oxycodone/ Acetaminophen (Percocet 5/325) 1 tab Q4HRS PRN 12/27/16 16:45 Oxycodone/ Acetaminophen 2 tab 2 tab Q4HRS PRN 12/27/16 16:45 12/30/16 13:47 2 TAB Pantoprazole Sodium (Protonix) 40 mg DAILYAC 12/28/16 07:30 12/31/16 09:14 40 MG Paricalcitol (Zemplar) 5 mcg 3X/WEEK 12/31/16 09:00 12/31/16 09:14 5 MCG Piperacillin Sod/ Tazobactam Sod (Zosyn Per Pharmacy) 1 each PRN DAILY PRN 12/27/16 17:30 12/28/16 07:27 DC Piperacillin Sod/ Tazobactam Sod 2.25 gm/Sodium Chloride 50 ml @ 100 mls/hr Q8HRS 12/28/16 14:00 12/31/16 14:13 100 MLS/HR Piperacillin Sod/ Tazobactam Sod 3.375 gm/Sodium Chloride 50 ml @ 100 mls/hr 1X ONCE 12/27/16 18:00 12/27/16 18:29 DC 12/27/16 18:07 100 MLS/HR Prochlorperazine Edisylate (Compazine) 10 mg PRN Q6HRS PRN 12/31/16 09:00 12/31/16 09:15 10 MG Prochlorperazine Edisylate 10 mg 10 mg 1X ONCE 12/29/16 14:00 12/29/16 14:01 DC 12/29/16 14:00 10 MG Saliva Substitute (Biotene Moisturizing Mouth) 2 spray PRN Q15MIN PRN 12/28/16 13:15 Sodium Bicarbonate 50 meq 50 meq Q2H 12/28/16 08:30 12/28/16 10:31 DC 12/28/16 15:33 50 MEQ Sodium Bicarbonate/ Dextrose 1,150 ml @ 100 mls/hr [id number] 12/28/16 09:00 12/30/16 08:59 DC 12/30/16 06:08 100 MLS/HR Sodium Chloride (Iv Sodium Chloride 0.9% 1000ml Bag) 1,000 ml @ 75 mls/hr [id number] 12/27/16 17:30 12/28/16 08:15 DC 12/28/16 07:12 75 MLS/HR Sodium Chloride (Normal Saline Flush) 10 ml 1X PRN PRN 12/30/16 08:15 12/31/16 08:14 DC Vancomycin HCl 1.5 gm/Sodium Chloride 500 ml @ 250 mls/hr Q48H 12/29/16 20:00 12/29/16 20:00 DC Vancomycin HCl 1 each 1 each PRN DAILY PRN 12/27/16 17:30 12/27/16 18:51 DC 12/27/16 18:45 1 EACH Vancomycin HCl 2 gm/Sodium Chloride 500 ml @ 250 mls/hr 1X ONCE 12/27/16 17:45 12/27/16 18:51 DC Lab Laboratory Tests Test 12/31/16 06:17 12/31/16 06:20 Urine Collection Type U cath Urine Color Shari Urine Clarity Turbid Urine pH 5.0 Urine Specific [place] >=1.030 Urine Protein 100mg/dL (NEG-TRACE) Urine Glucose (UA) Negativemg/dL (NEG) Urine Ketones (Stick) Tracemg/dL (NEG) Urine Blood Large (NEG) Urine Nitrite Negative (NEG) Urine Bilirubin Small (NEG) Urine Urobilinogen Dipstick 0.2mg/dL (0.2 mg/dL) Urine Leukocyte Esterase Small (NEG) Urine RBC Tntc/HPF (0-2) Urine WBC 1-4/HPF (0-4) Urine Bacteria 0/HPF (0-FEW) White Blood Count 2.0x10^3/uL (4.0-11.0) Red Blood Count 2.24x10^6/uL (3.50-5.40) Hemoglobin 7.6g/dL (12.0-15.5) Hematocrit 22.4% (36.0-47.0) Mean Corpuscular Volume 100fL (79-100) Mean Corpuscular Hemoglobin 34pg (25-35) Mean Corpuscular Hemoglobin Concent 34g/dL (31-37) Red Cell Distribution Width 22.9% (11.5-14.5) Platelet Count 12x10^3/uL (140-400) Neutrophils (%) (Auto) 89% (31-73) Lymphocytes (%) (Auto) 10% (24-48) Monocytes (%) (Auto) 1% (0-9) Eosinophils (%) (Auto) 0% (0-3) Basophils (%) (Auto) 0% (0-3) Neutrophils # (Auto) 1.8x10^3uL (1.8-7.7) Lymphocytes # (Auto) 0.2x10^3/uL (1.0-4.8) Monocytes # (Auto) 0.0x10^3/uL (0.0-1.1) Eosinophils # (Auto) 0.0x10^3/uL (0.0-0.7) Basophils # (Auto) 0.0x10^3/uL (0.0-0.2) Sodium Level 140mmol/L (136-145) Potassium Level 3.2mmol/L (3.5-5.1) Chloride Level 103mmol/L (98-107) Carbon Dioxide Level 31mmol/L (21-32) Anion Gap 6 (6-14) Blood Urea Nitrogen 23mg/dL (7-20) Creatinine 1.8mg/dL (0.6-1.0) Estimated GFR (Cockcroft-Gault) 28.1 Glucose Level 109mg/dL (70-99) Calcium Level 7.5mg/dL (8.5-10.1) Phosphorus Level 3.5mg/dL (2.6-4.7) Magnesium Level 1.7mg/dL (1.8-2.4) Creatine Kinase 44U/L (26-192) Albumin 2.4g/dL (3.4-5.0) DAKOTA VINCENT MD Dec 31, 2016 14:59
[2016-12-31 15:00] VITALS: BP 133/62
[2016-12-31] MEDS ORDERED: MAGNESIUM SULFATE 2GM 50 ML IV ONE (15:00)
[2016-12-31] MEDS: ALBUMIN HUMAN 5% 500 ML IV SCH ×2 (16:19→21:19)
[2016-12-31 19:00] VITALS: BP 122/56
[2016-12-31 19:01] LABS: BILIRUBIN,URINE SMALL (NEG); GLUCOSE,URINE NEGATIVE (NEG); NITRITE,URINE NEGATIVE (NEG); PROTEIN,URINE 30 mg/dL (NEG-TRACE); UROBILINOGEN,URINE 0.2 mg/dL (0.2 mg/dL)
[2016-12-31 19:08] LABS: RBC,URINE TNTC /HPF (0-2)
[2016-12-31 19:10] LABS: BACTERIA,URINE FEW /HPF (0-FEW); SQUAMOUS EPITHELIAL CELL,UR OCC /LPF
[2016-12-31 19:11] LABS: YEAST,URINE PRESENT /HPF
[2016-12-31 23:00] VITALS: BP 124/70
[2017-01-01] VITALS (11 sets, daily range): BP systolic 113–134; BP diastolic 53–69
[2017-01-01] MEDS: ALBUMIN HUMAN 5% 500 ML IV SCH (03:44)
[2017-01-01] MEDS: oxyCODONE/APAP 5/325 1 TAB TABLET PO PRN ×2 (03:45→17:44)
[2017-01-01] MEDS: PIPERACILLIN/TAZOBACTAM 2.25 GM in IV NORMAL SALINE 50ML 50 ML IV SCH ×3 (05:13→21:28)
[2017-01-01 05:44] LABS: BASO % 0 % (0-3); EOS % 0 % (0-3); HEMOGLOBIN 7.7 g/dL (12.0-15.5); LYMPH # 0.3 x10^3/uL (1.0-4.8); LYMPH % 12 % (24-48); MEAN CORPUSCULAR HEMOGLOBIN 35 pg (25-35); MEAN CORPUSCULAR HGB CONC 35 g/dL (31-37); MEAN CORPUSCULAR VOLUME 99 fL (79-100); MONO % 2 % (0-9); NEUT % 86 % (31-73); RED BLOOD COUNT 2.22 x10^6/uL (3.50-5.40); WHITE BLOOD COUNT 2.5 x10^3/uL (4.0-11.0)
[2017-01-01 05:49] LABS: PLATELET COUNT 8 x10^3/uL (140-400)
[2017-01-01] MEDS: PANTOPRAZOLE 40 MG TABLET.DR. PO SCH (09:43)
[2017-01-01] MEDS: CALCIUM ACETATE 667 MG CAPSULE PO SCH ×3 (09:43→17:37)
[2017-01-01] MEDS: GABAPENTIN 300 MG CAPSULE. PO SCH (09:43)
[2017-01-01 10:02] LABS: ALBUMIN 2.9 g/dL (3.4-5.0); CALCIUM 7.3 mg/dL (8.5-10.1); CREATININE 1.9 mg/dL (0.6-1.0); GFR 26.4; PHOSPHORUS 3.4 mg/dL (2.6-4.7)
[2017-01-01 10:09] LABS: POTASSIUM 2.9 mmol/L (3.5-5.1)
[2017-01-01] MEDS ORDERED: PROCHLORPERAZINE 10 MG/2 ML VIAL. IV PRN (11:45)
--- NOTE | 2017-01-01 11:55 | PDOC ---
Renal-Progress Notes Subjective Notes Notes SLEEPY History of Present Illness Hx of present illness BETTER Vitals Vitals Vital Signs Date Time Temp Pulse Resp B/P Pulse Ox O2 Delivery O2 Flow Rate FiO2 01/01/17 11:15 97.4 69 18 132/69 97.4 01/01/17 11:00 93 Room Air Weight Weight [ ] I.O. Intake and Output Intake and Output 01/01/17 06:59 Intake Total 420 ml Output Total 400 ml Balance 20 ml Intake Oral 420 ml Output Urine Total 400 ml Stool Total 0 ml Labs Labs Laboratory Tests Test 12/31/16 18:01 01/01/17 04:00 Urine Collection Type U cath Urine Color Shari Urine Clarity Turbid Urine pH 5.0 Urine Specific [place] 1.025 Urine Protein 30mg/dL (NEG-TRACE) Urine Glucose (UA) Negativemg/dL (NEG) Urine Ketones (Stick) Negativemg/dL (NEG) Urine Blood Large (NEG) Urine Nitrite Negative (NEG) Urine Bilirubin Small (NEG) Urine Urobilinogen Dipstick 0.2mg/dL (0.2 mg/dL) Urine Leukocyte Esterase Small (NEG) Urine RBC Tntc/HPF (0-2) Urine WBC 1-4/HPF (0-4) Urine Squamous Epithelial Cells Occ/LPF Urine Bacteria Few/HPF (0-FEW) Urine Hyaline Casts Moderate/HPF Urine Mucus Mod/LPF Urine Yeast Present/HPF White Blood Count 2.5x10^3/uL (4.0-11.0) Red Blood Count 2.22x10^6/uL (3.50-5.40) Hemoglobin 7.7g/dL (12.0-15.5) Hematocrit 22.0% (36.0-47.0) Mean Corpuscular Volume 99fL (79-100) Mean Corpuscular Hemoglobin 35pg (25-35) Mean Corpuscular Hemoglobin Concent 35g/dL (31-37) Red Cell Distribution Width 23.0% (11.5-14.5) Platelet Count 8x10^3/uL (140-400) Neutrophils (%) (Auto) 86% (31-73) Lymphocytes (%) (Auto) 12% (24-48) Monocytes (%) (Auto) 2% (0-9) Eosinophils (%) (Auto) 0% (0-3) Basophils (%) (Auto) 0% (0-3) Neutrophils # (Auto) 2.2x10^3uL (1.8-7.7) Lymphocytes # (Auto) 0.3x10^3/uL (1.0-4.8) Monocytes # (Auto) 0.0x10^3/uL (0.0-1.1) Eosinophils # (Auto) 0.0x10^3/uL (0.0-0.7) Basophils # (Auto) 0.0x10^3/uL (0.0-0.2) Sodium Level 141mmol/L (136-145) Potassium Level 2.9mmol/L (3.5-5.1) Chloride Level 101mmol/L (98-107) Carbon Dioxide Level 29mmol/L (21-32) Anion Gap 11 (6-14) Blood Urea Nitrogen 28mg/dL (7-20) Creatinine 1.9mg/dL (0.6-1.0) Estimated GFR (Cockcroft-Gault) 26.4 Glucose Level 85mg/dL (70-99) Calcium Level 7.3mg/dL (8.5-10.1) Phosphorus Level 3.4mg/dL (2.6-4.7) Magnesium Level 2.0mg/dL (1.8-2.4) Creatine Kinase 38U/L (26-192) Albumin 2.9g/dL (3.4-5.0) Micro Micro Microbiology 12/27/16 Blood Culture - Preliminary, Resulted NO GROWTH AFTER 4 DAYS Review of Systems Constitutional: yes: alert, oriented, weakness Ears/Nose/Throat: Yes: no symptom reported Eyes: Yes: no symptom reported Pulmonary: Yes no symptom reported Cardiovascular: Yes no symptom reported Musculoskeletal: Yes: muscle stiffness Skin: Yes no symptom reported Psychiatric/Neurological: Yes: weakness Physical Exam General Appearance: no apparent distress Skin: warm Respiratory: decreased breath sounds Heart: S1S2, RRR Abdomen: soft, bowel sounds present Genitourinary: bladder flat Extremities: pulses present, atrophy Neurology: alert Musculoskeletal: Other Assessment Assessment IMP ARTURO HYPOTENSION-BETTER DECONDITIONING CHOLANGIOCARCINOMA PLAN CONT WITH IVF'S HOLD OFF HD TODAY LABS IN AM NEXT HD MOST LIKELY TUESDAY DEPENDING ON LABS WILL FOLLOW UPDATED DAUGHTER IGNACIO BATRES MD Jan 01, 2017 11:55
[2017-01-01] MEDS ORDERED: POTASSIUM CHLORIDE 20 MEQ TABLET.ER. PO ONE (12:00)
--- NOTE | 2017-01-01 13:27 | PDOC ---
PROGRESS NOTES Chief Complaint Chief Complaint acute metabolic encephalopathy, 2/2 ARTURO likely cellulitis BLE, diffuse, vs. side effect of gemzar causing edema Acute renal failure, oliguric ATN 2/2 gemzar hyperkalemia, gap metabolic acidosis, uremia GERD peripheral neuropathy cholangiocarcinoma STAGE 4 obesity hypomagnesemia pancytopenia 2/2 chemo N/V, diarrhea with chemo , ARTURO, HD severe malnutrition hypokalemia plan: fu with renal, onco, id on multiple abx, zosyn, OFF ZYVOX and micofungin as per id cont HD now ptot monitor urine output gi ppx check cdiff add reglan, zofran for nausea 1u PLT transfusion 01/01 History of Present Illness History of Present Illness feels N/V and diarrhea for 2 days low urine output 200mls 24 hours, and dark despite IV fluids pancytopenia tremor better HD 12/28, 12/29, 12/30, 01/01 low PLT 8 01/01 1u transfusion Vitals Vitals Vital Signs Date Time Temp Pulse Resp B/P Pulse Ox O2 Delivery O2 Flow Rate FiO2 01/01/17 11:15 97.4 69 18 132/69 97.4 01/01/17 11:00 93 Room Air Physical Exam General: Alert, Oriented X3, Cooperative, No acute distress, Other (very fatigued) Heart: Normal S1, Normal S2 Lungs: Clear, Crackles, Other Abdomen: Normal bowel sounds, Soft, No tenderness Extremities: Other (2+ edema Bilateral LE unchanged) Skin: Other (erythema improving) Labs LABS Laboratory Tests Test 12/31/16 18:01 01/01/17 04:00 Urine Collection Type U cath Urine Color Shari Urine Clarity Turbid Urine pH 5.0 Urine Specific [place] 1.025 Urine Protein 30mg/dL (NEG-TRACE) Urine Glucose (UA) Negativemg/dL (NEG) Urine Ketones (Stick) Negativemg/dL (NEG) Urine Blood Large (NEG) Urine Nitrite Negative (NEG) Urine Bilirubin Small (NEG) Urine Urobilinogen Dipstick 0.2mg/dL (0.2 mg/dL) Urine Leukocyte Esterase Small (NEG) Urine RBC Tntc/HPF (0-2) Urine WBC 1-4/HPF (0-4) Urine Squamous Epithelial Cells Occ/LPF Urine Bacteria Few/HPF (0-FEW) Urine Hyaline Casts Moderate/HPF Urine Mucus Mod/LPF Urine Yeast Present/HPF White Blood Count 2.5x10^3/uL (4.0-11.0) Red Blood Count 2.22x10^6/uL (3.50-5.40) Hemoglobin 7.7g/dL (12.0-15.5) Hematocrit 22.0% (36.0-47.0) Mean Corpuscular Volume 99fL (79-100) Mean Corpuscular Hemoglobin 35pg (25-35) Mean Corpuscular Hemoglobin Concent 35g/dL (31-37) Red Cell Distribution Width 23.0% (11.5-14.5) Platelet Count 8x10^3/uL (140-400) Neutrophils (%) (Auto) 86% (31-73) Lymphocytes (%) (Auto) 12% (24-48) Monocytes (%) (Auto) 2% (0-9) Eosinophils (%) (Auto) 0% (0-3) Basophils (%) (Auto) 0% (0-3) Neutrophils # (Auto) 2.2x10^3uL (1.8-7.7) Lymphocytes # (Auto) 0.3x10^3/uL (1.0-4.8) Monocytes # (Auto) 0.0x10^3/uL (0.0-1.1) Eosinophils # (Auto) 0.0x10^3/uL (0.0-0.7) Basophils # (Auto) 0.0x10^3/uL (0.0-0.2) Sodium Level 141mmol/L (136-145) Potassium Level 2.9mmol/L (3.5-5.1) Chloride Level 101mmol/L (98-107) Carbon Dioxide Level 29mmol/L (21-32) Anion Gap 11 (6-14) Blood Urea Nitrogen 28mg/dL (7-20) Creatinine 1.9mg/dL (0.6-1.0) Estimated GFR (Cockcroft-Gault) 26.4 Glucose Level 85mg/dL (70-99) Calcium Level 7.3mg/dL (8.5-10.1) Phosphorus Level 3.4mg/dL (2.6-4.7) Magnesium Level 2.0mg/dL (1.8-2.4) Creatine Kinase 38U/L (26-192) Albumin 2.9g/dL (3.4-5.0) Review of Systems Review of Systems no fever, chills, sob or chest pain Assessment and Plan Assessmemt and Plan Problems Medical Problems: (1) Cellulitis Status: Acute Problems: Comment Review of Relevant I have reviewed the following items ketty (where applicable) has been applied. Labs Laboratory Tests Test 12/31/16 06:17 12/31/16 06:20 12/31/16 18:01 01/01/17 04:00 Urine Collection Type U cath U cath Urine Color Shari Shari Urine Clarity Turbid Turbid Urine pH 5.0 5.0 Urine Specific [place] >=1.030 1.025 Urine Protein 100mg/dL (NEG-TRACE) 30mg/dL (NEG-TRACE) Urine Glucose (UA) Negativemg/dL (NEG) Negativemg/dL (NEG) Urine Ketones (Stick) Tracemg/dL (NEG) Negativemg/dL (NEG) Urine Blood Large (NEG) Large (NEG) Urine Nitrite Negative (NEG) Negative (NEG) Urine Bilirubin Small (NEG) Small (NEG) Urine Urobilinogen Dipstick 0.2mg/dL (0.2 mg/dL) 0.2mg/dL (0.2 mg/dL) Urine Leukocyte Esterase Small (NEG) Small (NEG) Urine RBC Tntc/HPF (0-2) Tntc/HPF (0-2) Urine WBC 1-4/HPF (0-4) 1-4/HPF (0-4) Urine Bacteria 0/HPF (0-FEW) Few/HPF (0-FEW) White Blood Count 2.0x10^3/uL (4.0-11.0) 2.5x10^3/uL (4.0-11.0) Red Blood Count 2.24x10^6/uL (3.50-5.40) 2.22x10^6/uL (3.50-5.40) Hemoglobin 7.6g/dL (12.0-15.5) 7.7g/dL (12.0-15.5) Hematocrit 22.4% (36.0-47.0) 22.0% (36.0-47.0) Mean Corpuscular Volume 100fL (79-100) 99fL (79-100) Mean Corpuscular Hemoglobin 34pg (25-35) 35pg (25-35) Mean Corpuscular Hemoglobin Concent 34g/dL (31-37) 35g/dL (31-37) Red Cell Distribution Width 22.9% (11.5-14.5) 23.0% (11.5-14.5) Platelet Count 12x10^3/uL (140-400) 8x10^3/uL (140-400) Neutrophils (%) (Auto) 89% (31-73) 86% (31-73) Lymphocytes (%) (Auto) 10% (24-48) 12% (24-48) Monocytes (%) (Auto) 1% (0-9) 2% (0-9) Eosinophils (%) (Auto) 0% (0-3) 0% (0-3) Basophils (%) (Auto) 0% (0-3) 0% (0-3) Neutrophils # (Auto) 1.8x10^3uL (1.8-7.7) 2.2x10^3uL (1.8-7.7) Lymphocytes # (Auto) 0.2x10^3/uL (1.0-4.8) 0.3x10^3/uL (1.0-4.8) Monocytes # (Auto) 0.0x10^3/uL (0.0-1.1) 0.0x10^3/uL (0.0-1.1) Eosinophils # (Auto) 0.0x10^3/uL (0.0-0.7) 0.0x10^3/uL (0.0-0.7) Basophils # (Auto) 0.0x10^3/uL (0.0-0.2) 0.0x10^3/uL (0.0-0.2) Sodium Level 140mmol/L (136-145) 141mmol/L (136-145) Potassium Level 3.2mmol/L (3.5-5.1) 2.9mmol/L (3.5-5.1) Chloride Level 103mmol/L (98-107) 101mmol/L (98-107) Carbon Dioxide Level 31mmol/L (21-32) 29mmol/L (21-32) Anion Gap 6 (6-14) 11 (6-14) Blood Urea Nitrogen 23mg/dL (7-20) 28mg/dL (7-20) Creatinine 1.8mg/dL (0.6-1.0) 1.9mg/dL (0.6-1.0) Estimated GFR (Cockcroft-Gault) 28.1 26.4 Glucose Level 109mg/dL (70-99) 85mg/dL (70-99) Calcium Level 7.5mg/dL (8.5-10.1) 7.3mg/dL (8.5-10.1) Phosphorus Level 3.5mg/dL (2.6-4.7) 3.4mg/dL (2.6-4.7) Magnesium Level 1.7mg/dL (1.8-2.4) 2.0mg/dL (1.8-2.4) Creatine Kinase 44U/L (26-192) 38U/L (26-192) Albumin 2.4g/dL (3.4-5.0) 2.9g/dL (3.4-5.0) Urine Squamous Epithelial Cells Occ/LPF Urine Hyaline Casts Moderate/HPF Urine Mucus Mod/LPF Urine Yeast Present/HPF Laboratory Tests Test 12/31/16 18:01 01/01/17 04:00 Urine Collection Type U cath Urine Color Shari Urine Clarity Turbid Urine pH 5.0 Urine Specific [place] 1.025 Urine Protein 30mg/dL (NEG-TRACE) Urine Glucose (UA) Negativemg/dL (NEG) Urine Ketones (Stick) Negativemg/dL (NEG) Urine Blood Large (NEG) Urine Nitrite Negative (NEG) Urine Bilirubin Small (NEG) Urine Urobilinogen Dipstick 0.2mg/dL (0.2 mg/dL) Urine Leukocyte Esterase Small (NEG) Urine RBC Tntc/HPF (0-2) Urine WBC 1-4/HPF (0-4) Urine Squamous Epithelial Cells Occ/LPF Urine Bacteria Few/HPF (0-FEW) Urine Hyaline Casts Moderate/HPF Urine Mucus Mod/LPF Urine Yeast Present/HPF White Blood Count 2.5x10^3/uL (4.0-11.0) Red Blood Count 2.22x10^6/uL (3.50-5.40) Hemoglobin 7.7g/dL (12.0-15.5) Hematocrit 22.0% (36.0-47.0) Mean Corpuscular Volume 99fL (79-100) Mean Corpuscular Hemoglobin 35pg (25-35) Mean Corpuscular Hemoglobin Concent 35g/dL (31-37) Red Cell Distribution Width 23.0% (11.5-14.5) Platelet Count 8x10^3/uL (140-400) Neutrophils (%) (Auto) 86% (31-73) Lymphocytes (%) (Auto) 12% (24-48) Monocytes (%) (Auto) 2% (0-9) Eosinophils (%) (Auto) 0% (0-3) Basophils (%) (Auto) 0% (0-3) Neutrophils # (Auto) 2.2x10^3uL (1.8-7.7) Lymphocytes # (Auto) 0.3x10^3/uL (1.0-4.8) Monocytes # (Auto) 0.0x10^3/uL (0.0-1.1) Eosinophils # (Auto) 0.0x10^3/uL (0.0-0.7) Basophils # (Auto) 0.0x10^3/uL (0.0-0.2) Sodium Level 141mmol/L (136-145) Potassium Level 2.9mmol/L (3.5-5.1) Chloride Level 101mmol/L (98-107) Carbon Dioxide Level 29mmol/L (21-32) Anion Gap 11 (6-14) Blood Urea Nitrogen 28mg/dL (7-20) Creatinine 1.9mg/dL (0.6-1.0) Estimated GFR (Cockcroft-Gault) 26.4 Glucose Level 85mg/dL (70-99) Calcium Level 7.3mg/dL (8.5-10.1) Phosphorus Level 3.4mg/dL (2.6-4.7) Magnesium Level 2.0mg/dL (1.8-2.4) Creatine Kinase 38U/L (26-192) Albumin 2.9g/dL (3.4-5.0) Microbiology 12/27/16 Blood Culture - Preliminary, Resulted NO GROWTH AFTER 4 DAYS Medications Current Medications Acetaminophen (Tylenol) 650 mg 1X ONCE PO Last administered on 12/27/16 09:11 ; Start 12/27/16 at 08:15; Stop 12/27/16 at 08:22; Status DC Diphenhydramine HCl (Benadryl) 25 mg 1X ONCE PO Last administered on 09:12; Start 12/27/16 at 08:15; Stop 12/27/16 at 08:22; Status DC Furosemide (Lasix) 20 mg 1X ONCE IVP ; Start 12/27/16 at 08:15; Stop 12/27/16 at 08:22; Status DC Fentanyl Citrate (Fentanyl 2ml Vial) 25 mcg PRN QID PRN IV PAIN; Start at 16:45; Stop 12/29/16 at 21:00; Status DC Lisinopril (Prinivil) 10 mg DAILY PO ; Start 12/28/16 at 09:00; Stop 12/28/16 at 09:00; Status DC Oxycodone/ Acetaminophen (Percocet 5/325) 1 tab Q4HRS PRN PO MILD/MODERATE PAIN ; Start 12/27/16 at 16:45 Gabapentin (Neurontin) 300 mg TID PO Last administered on 12/28/16 10:44; Start 12/27/16 at 21:00; Stop 12/28/16 at 15:23; Status DC Cetirizine HCl (Zyrtec) 10 mg PRN DAILY PRN PO ALLERGIES; Start 12/28/16 at 09: 00 Pantoprazole Sodium (Protonix) 40 mg DAILYAC PO Last administered on 01/01/17 09:43; Start 12/28/16 at 07:30 Oxycodone/ Acetaminophen 2 tab 2 tab Q4HRS PRN PO SEVERE PAIN Last administered on 01/01/17 03:45; Start 12/27/16 at 16:45 Sodium Chloride (Iv Sodium Chloride 0.9% 1000ml Bag) 1,000 ml @ 75 mls/hr [id number] IV Last administered on 12/28/16 07:12; Start 12/27/16 at 17:30; Stop 12/28/16 at 08:15; Status DC Piperacillin Sod/ Tazobactam Sod (Zosyn Per Pharmacy) 1 each PRN DAILY PRN MC SEE COMMENTS; Start 12/27/16 at 17:30; Stop 12/28/16 at 07:27; Status DC Vancomycin HCl 1 each 1 each PRN DAILY PRN MC SEE COMMENTS Last administered on 12/27/16 18:45; Start 12/27/16 at 17:30; Stop 12/27/16 at 18:51; Status DC Vancomycin HCl 2 gm/Sodium Chloride 500 ml @ 250 mls/hr 1X ONCE IV ; Start at 17:45; Stop 12/27/16 at 18:51; Status DC Piperacillin Sod/ Tazobactam Sod 3.375 gm/Sodium Chloride 50 ml @ 100 mls/hr 1X ONCE IV Last administered on 12/27/16 18:07; Start 12/27/16 at 18:00; Stop 12/27/16 at 18:29; Status DC Piperacillin Sod/ Tazobactam Sod 2.25 gm/Sodium Chloride 50 ml @ 100 mls/hr Q6HRS IV Last administered on 12/28/16 06:08; Start 12/28/16 at 00:00; Stop at 07:31; Status DC Vancomycin HCl 1.5 gm/Sodium Chloride 500 ml @ 250 mls/hr Q48H IV ; Start 12/29 at 20:00; Stop 12/29/16 at 20:00; Status DC Micafungin Sodium 100 mg/Dextrose 100 ml @ 100 mls/hr Q24H IV Last administered on 12/31/16 09:13; Start 12/28/16 at 08:00; Stop 12/31/16 at 10:43 ; Status DC Linezolid 300 ml @ 300 mls/hr Q12HR IV Last administered on 12/31/16 09:13; Start 12/28/16 at 09:00; Stop 12/31/16 at 10:43; Status DC Piperacillin Sod/ Tazobactam Sod 2.25 gm/Sodium Chloride 50 ml @ 100 mls/hr Q8HRS IV Last administered on 01/01/17 13:07; Start 12/28/16 at 14:00 Calcium Chloride 2000 mg/Sodium Chloride 120 ml @ 240 mls/hr 1X ONCE IV Last administered on 12/28/16 08:54; Start 12/28/16 at 08:00; Stop 12/28/16 at 08:29 ; Status DC Magnesium Sulfate/ Dextrose (Magnesium Sulfate PREMIX 2GM) 50 ml @ 25 mls/hr PRN DAILY PRN IV for Mag < 1.7 on am labs Last administered on 12/29/16 22:56 ; Start 12/28/16 at 08:15 Sodium Bicarbonate 50 meq 50 meq Q2H IV Last administered on 12/28/16 15:33; Start 12/28/16 at 08:30; Stop 12/28/16 at 10:31; Status DC Sodium Chloride 500 ml @ 0 mls/hr PRN QID PRN IV UO< 30cc/hr over previous 6hrs ; Start 12/28/16 at 08:15 Sodium Bicarbonate/ Dextrose 1,150 ml @ 100 mls/hr [id number] IV Last administered on 12/30/16 06:08; Start 12/28/16 at 09:00; Stop 12/30/16 at 08:59 ; Status DC Heparin Sodium (Porcine) (Heparin Sodium) 10,000 unit STK-MED ONCE .ROUTE ; Start 12/28/16 at 08:46; Stop 12/28/16 at 08:47; Status DC Lidocaine/Sodium Bicarbonate 20 ml 20 ml STK-MED ONCE IJ ; Start 12/28/16 at 08: 47; Stop 12/28/16 at 08:48; Status DC Heparin Sodium/ Sodium Chloride 500 ml @ As Directed STK-MED ONCE .ROUTE ; Start 12/28/16 at 08:47; Stop 12/28/16 at 08:48; Status DC Lidocaine/Sodium Bicarbonate (Buffered Lidocaine 1%) 3 ml 1X ONCE IJ Last administered on 12/28/16 10:10; Start 12/28/16 at 09:00; Stop 12/28/16 at 09:01 ; Status DC Heparin Sodium/ Sodium Chloride 60 unit 1X ONCE IV Last administered on 10:11; Start 12/28/16 at 09:00; Stop 12/28/16 at 09:01; Status DC Heparin Sodium (Porcine) (Heparin Sodium) 2,500 unit 1X ONCE INT CAT Last administered on 12/28/16 10:10; Start 12/28/16 at 09:00; Stop 12/28/16 at 09:01 ; Status DC Midazolam HCl (Versed) 2 mg STK-MED ONCE .ROUTE ; Start 12/28/16 at 09:41; Stop 12/28/16 at 09:42; Status DC Saliva Substitute (Biotene Moisturizing Mouth) 2 spray PRN Q15MIN PRN PO DRY MOUTH Last administered on 12/31/16 17:53; Start 12/28/16 at 13:15 Gabapentin (Neurontin) 300 mg DAILY PO Last administered on 01/01/17 09:43; Start 12/29/16 at 09:00 Acetaminophen (Tylenol) 650 mg PRN Q6HRS PRN PO MILD PAIN Last administered on 12/30/16 23:23; Start 12/28/16 at 18:15 Ondansetron HCl (Zofran) 4 mg PRN Q6HRS PRN IV NAUSEA/VOMITING Last administered on 12/29/16 11:10; Start 12/29/16 at 10:45; Stop 12/29/16 at 13:53 ; Status DC Ondansetron HCl (Zofran) 8 mg PRN Q8HRS PRN IV NAUSEA/VOMITING Last administered on 12/31/16 03:35; Start 12/29/16 at 14:00; Stop 12/31/16 at 09:03 ; Status DC Prochlorperazine Edisylate 10 mg 10 mg 1X ONCE IV Last administered on 14:00; Start 12/29/16 at 14:00; Stop 12/29/16 at 14:01; Status DC Sodium Chloride 500 ml @ 500 mls/hr 1X ONCE IV Last administered on 23:20; Start 12/29/16 at 23:30; Stop 12/30/16 at 00:29; Status DC Sodium Chloride 500 ml @ 500 mls/hr 1X ONCE IV Last administered on 00:05; Start 12/30/16 at 00:00; Stop 12/30/16 at 00:59; Status DC Sodium Chloride 1,000 ml @ 1,000 mls/hr Q1H PRN IV hypotension; Start 12/30/16 at 08:03; Stop 12/30/16 at 14:02; Status DC Albumin Human (Albuminar) 200 ml @ 200 mls/hr 1X PRN PRN IV Hypotension Last administered on 12/30/16 09:22; Start 12/30/16 at 08:15; Stop 12/30/16 at 14:14 ; Status DC Sodium Chloride (Normal Saline Flush) 10 ml 1X PRN PRN IV AP catheter pack; Start 12/30/16 at 08:15; Stop 12/31/16 at 08:14; Status DC Sodium Chloride (Normal Saline Flush) 10 ml 1X PRN PRN IV RN CARDIAC REHAB catheter pack; Start 12/30/16 at 08:15; Stop 12/31/16 at 08:14; Status DC Info (PHARMACY MONITORING -- do not chart) 1 each PRN DAILY PRN MC SEE COMMENTS ; Start 12/30/16 at 08:15 Info (PHARMACY MONITORING -- do not chart) 1 each PRN DAILY PRN MC SEE COMMENTS ; Start 12/30/16 at 08:15; Status UNV Paricalcitol (Zemplar) 5 mcg 3X/WEEK IV Last administered on 12/31/16 09:14; Start 12/31/16 at 09:00 Calcium Acetate 1334 mg 1,334 mg TIDWMEALS PO Last administered on 01/01/17 13 :01; Start 12/30/16 at 12:00 Albumin Human (Plasmanate) 500 ml @ 120 mls/hr Q4HRS IV Last administered on 16:45; Start 12/30/16 at 12:00; Stop 12/30/16 at 19:59; Status DC Ondansetron HCl (Zofran) 8 mg PRN Q6HRS PRN IV NAUSEA/VOMITING; Start 12/31/16 at 08:58 Lorazepam (Ativan) 0.5 mg PRN Q4HRS PRN IV ANXIETY / AGITATION Last administered on 01/01/17 09:43; Start 12/31/16 at 09:00 Prochlorperazine Edisylate (Compazine) 10 mg PRN Q6HRS PRN IM NAUSEA/VOMITING Last administered on 12/31/16 09:15; Start 12/31/16 at 09:00; Stop 01/01/17 at 11:48; Status DC Metoclopramide HCl 5 mg 5 mg PRN Q6HRS PRN IV NAUSEA/VOMITING Last administered on 01/01/17 09:42; Start 12/31/16 at 11:45 Magnesium Sulfate/ Dextrose 50 ml @ 25 mls/hr 1X ONCE IV Last administered on 12/31/16 17:54; Start 12/31/16 at 15:00; Stop 12/31/16 at 16:59; Status DC Albumin Human (Plasmanate) 500 ml @ 75 mls/hr Q6H40M IV Last administered on 03:44; Start 12/31/16 at 15:15; Stop 01/01/17 at 11:14; Status DC Prochlorperazine Edisylate (Compazine) 10 mg PRN Q6HRS PRN IV NAUSEA/VOMITING; Start 01/01/17 at 11:45 Potassium Chloride (Klor-Con) 40 meq 1X ONCE PO Last administered on 13:02; Start 01/01/17 at 12:00; Stop 01/01/17 at 12:01; Status DC Active Scripts Active Reported Claritin (Loratadine) 10 Mg Tablet 1 Tab PO DAILY PRN Bactrim 400-80 Mg Tablet (Sulfamethoxazole/Trimethoprim) 1 Each Tablet 1 Tab PO BID Gabapentin 300 Mg Capsule 300 Mg PO TID Zestril (Lisinopril) 10 Mg Tablet 10 Mg PO DAILY Cyanocobalamin Injection (Cyanocobalamin (Vitamin B-12)) 1,000 Mcg/1 Ml Vial 1, 000 Mcg QMONTH Percocet 5-325 Mg Tablet (Oxycodone/Acetaminophen) 1 Each Tablet 1-2 Tab PO Q4- 6HRS Prilosec Otc (Omeprazole Magnesium) 20 Mg Tablet.dr 20 Mg PO DAILY Vitals/I & O Vital Sign - Last 24 Hours 12/31/16 12/31/16 12/31/16 12/31/16 15:00 19:00 20:00 23:00 Temp 97.6 98.1 97.7 97.6 98.1 97.7 Pulse 94 71 75 Resp 18 18 18 B/P 133/62 122/56 124/70 Pulse Ox 94 92 94 O2 Delivery Room Air Room Air Room Air Room Air 01/01/17 01/01/17 01/01/17 01/01/17 03:00 03:45 04:45 07:00 Temp 97.5 97.8 97.5 97.8 Pulse 75 68 Resp 18 18 20 16 B/P 134/66 123/65 Pulse Ox 90 93 O2 Delivery Room Air Room Air Room Air Room Air 01/01/17 01/01/17 11:00 11:15 Temp 97.4 97.4 97.4 97.4 Pulse 69 69 Resp 20 18 B/P 132/65 132/69 Pulse Ox 93 O2 Delivery Room Air Intake and Output 12/31/16 12/31/16 01/01/17 15:00 23:00 07:00 Intake Total 120 ml 300 ml Output Total 400 ml 0 ml Balance 120 ml -100 ml 0 ml KIKE LORA MD Jan 01, 2017 13:27
[2017-01-01] MEDS ORDERED: FUROSEMIDE 40 MG/4 ML VIAL. IVP ONE (14:00)
--- NOTE | 2017-01-01 14:14 | RAD ---
AP portable chest radiograph 01/01/2017 Clinical History: Shortness of breath. An AP portable erect digital radiograph of the chest was obtained. Comparison study is dated 12/27/2016. A right internal jugular [id number]-h-Sril catheter is unchanged position. A left subclavian large bore central venous catheter has been placed. The tip of this catheter extends to overlie the right atrium of the heart. The cardiac silhouette is mildly enlarged. The thoracic aorta is tortuous. Bilateral perihilar infiltrates are seen, right greater than left. These are new since the previous examination. No pneumothorax or large pleural effusion is seen. The osseous structures are unchanged. Impression: Bilateral perihilar infiltrates, right greater than left.
--- NOTE | 2017-01-01 16:12 | PDOC ---
Infectious Disease Note Subjective Subjective Nausea controlled Denies pain Ate a bowl of soup earlier ROS ROS GEN: Denies fevers, chills, sweats CV: Denies chest pain RESP: Denies shortness of air, cough GI: Denies v/d NEURO: Denies confusion, dizziness MSK: Denies weakness, joint pain/swelling Vital Sign Vital Signs Vital Signs Date Time Temp Pulse Resp B/P Pulse Ox O2 Delivery O2 Flow Rate FiO2 01/01/17 15:00 97.6 72 20 133/67 90 Room Air 97.6 Physical Exam PHYSICAL EXAM GENERAL: Sleeping, arouses easily to name HEENT: OC/OP clear LUNGS: Clear HEART: S1S2, no gallop, no murmur ABD: Obese, BS present, soft, NT EXT: BLE edema and medial petechial type rash 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 clean Labs Lab Laboratory Tests Test 12/31/16 18:01 01/01/17 04:00 Urine Collection Type U cath Urine Color Shari Urine Clarity Turbid Urine pH 5.0 Urine Specific [place] 1.025 Urine Protein 30mg/dL (NEG-TRACE) Urine Glucose (UA) Negativemg/dL (NEG) Urine Ketones (Stick) Negativemg/dL (NEG) Urine Blood Large (NEG) Urine Nitrite Negative (NEG) Urine Bilirubin Small (NEG) Urine Urobilinogen Dipstick 0.2mg/dL (0.2 mg/dL) Urine Leukocyte Esterase Small (NEG) Urine RBC Tntc/HPF (0-2) Urine WBC 1-4/HPF (0-4) Urine Squamous Epithelial Cells Occ/LPF Urine Bacteria Few/HPF (0-FEW) Urine Hyaline Casts Moderate/HPF Urine Mucus Mod/LPF Urine Yeast Present/HPF White Blood Count 2.5x10^3/uL (4.0-11.0) Red Blood Count 2.22x10^6/uL (3.50-5.40) Hemoglobin 7.7g/dL (12.0-15.5) Hematocrit 22.0% (36.0-47.0) Mean Corpuscular Volume 99fL (79-100) Mean Corpuscular Hemoglobin 35pg (25-35) Mean Corpuscular Hemoglobin Concent 35g/dL (31-37) Red Cell Distribution Width 23.0% (11.5-14.5) Platelet Count 8x10^3/uL (140-400) Neutrophils (%) (Auto) 86% (31-73) Lymphocytes (%) (Auto) 12% (24-48) Monocytes (%) (Auto) 2% (0-9) Eosinophils (%) (Auto) 0% (0-3) Basophils (%) (Auto) 0% (0-3) Neutrophils # (Auto) 2.2x10^3uL (1.8-7.7) Lymphocytes # (Auto) 0.3x10^3/uL (1.0-4.8) Monocytes # (Auto) 0.0x10^3/uL (0.0-1.1) Eosinophils # (Auto) 0.0x10^3/uL (0.0-0.7) Basophils # (Auto) 0.0x10^3/uL (0.0-0.2) Sodium Level 141mmol/L (136-145) Potassium Level 2.9mmol/L (3.5-5.1) Chloride Level 101mmol/L (98-107) Carbon Dioxide Level 29mmol/L (21-32) Anion Gap 11 (6-14) Blood Urea Nitrogen 28mg/dL (7-20) Creatinine 1.9mg/dL (0.6-1.0) Estimated GFR (Cockcroft-Gault) 26.4 Glucose Level 85mg/dL (70-99) Calcium Level 7.3mg/dL (8.5-10.1) Phosphorus Level 3.4mg/dL (2.6-4.7) Magnesium Level 2.0mg/dL (1.8-2.4) Creatine Kinase 38U/L (26-192) Albumin 2.9g/dL (3.4-5.0) Micro URINE CULTURE RES 1 Preliminary Comment No growth after 18-24 hours. BLOOD CULTURE Preliminary NO GROWTH AFTER 4 DAYS Objective Assessment Right LE cellulitis - better ARTURO and electrolyte abnormalities - better s/p HD Pancytopenia - too early for abx to be involved mild encephalopathy - improved Cholangiocarcinoma s/p chemo 12/24 Plan Plan of Care Cont Zosyn Monitor blood counts D/w Patient seen and examined. Chart reviewed in detail. Case discussed with COTTON AGENT. Agree with above plan. THU POLK APRN Jan 01, 2017 16:12 MILLICENT RAYMUNDO MD Jan 01, 2017 16:55
[2017-01-01] MEDS: IPRATRPIUM/ALBUTEROL 0.5/2.5MG 3 ML NEBU. NEB PRN (17:23)
[2017-01-02 03:03] VITALS: BP 136/67
[2017-01-02] MEDS: PIPERACILLIN/TAZOBACTAM 2.25 GM in IV NORMAL SALINE 50ML 50 ML IV SCH ×3 (06:25→21:21)
[2017-01-02 06:59] LABS: BASO % 0 % (0-3); EOS % 0 % (0-3); HEMOGLOBIN 7.4 g/dL (12.0-15.5); LYMPH # 0.3 x10^3/uL (1.0-4.8); LYMPH % 13 % (24-48); MEAN CORPUSCULAR HEMOGLOBIN 34 pg (25-35); MEAN CORPUSCULAR HGB CONC 34 g/dL (31-37); MEAN CORPUSCULAR VOLUME 100 fL (79-100); MONO % 6 % (0-9); NEUT % 80 % (31-73); RED CELL DISTRIBUTION WIDTH 23.1 % (11.5-14.5); WHITE BLOOD COUNT 2.5 x10^3/uL (4.0-11.0)
[2017-01-02 07:00] VITALS: BP 146/71
[2017-01-02 07:06] LABS: PLATELET COUNT 21 x10^3/uL (140-400)
[2017-01-02 07:10] LABS: ALBUMIN 2.9 g/dL (3.4-5.0); CALCIUM 7.9 mg/dL (8.5-10.1); CREATININE 1.9 mg/dL (0.6-1.0); GFR 26.4; MAGNESIUM 1.8 mg/dL (1.8-2.4); PHOSPHORUS 3.5 mg/dL (2.6-4.7); POTASSIUM 3.2 mmol/L (3.5-5.1)
[2017-01-02] MEDS: PANTOPRAZOLE 40 MG TABLET.DR. PO SCH (08:15)
[2017-01-02] MEDS: GABAPENTIN 300 MG CAPSULE. PO SCH (08:15)
[2017-01-02] MEDS: CALCIUM ACETATE 667 MG CAPSULE PO SCH ×3 (08:16→17:41)
[2017-01-02] MEDS: ACETAMINOPHEN 325 MG TABLET. PO PRN (08:19)
--- NOTE | 2017-01-02 10:25 | PDOC ---
Renal-Progress Notes Subjective Notes Notes NONE History of Present Illness Hx of present illness STABLE Vitals Vitals Vital Signs Date Time Temp Pulse Resp B/P Pulse Ox O2 Delivery O2 Flow Rate FiO2 01/02/17 08:08 Room Air 01/02/17 07:00 98.1 77 20 146/71 96 98.1 Weight Weight [ ] I.O. Intake and Output Intake and Output 01/02/17 07:00 Intake Total 2553 ml Output Total 1025 ml Balance 1528 ml Intake Oral 500 ml IV Total 1425 ml Blood Product 281 ml Blood Product IV Normal Saline Flush 347 ml Output Urine Total 1025 ml Labs Labs Laboratory Tests Test 01/01/17 18:25 01/02/17 06:30 Erythrocyte Sedimentation Rate 20 (0-25) C-Reactive Protein, Quantitative 52.8mg/L (0-3.3) White Blood Count 2.5x10^3/uL (4.0-11.0) Red Blood Count 2.20x10^6/uL (3.50-5.40) Hemoglobin 7.4g/dL (12.0-15.5) Hematocrit 22.0% (36.0-47.0) Mean Corpuscular Volume 100fL (79-100) Mean Corpuscular Hemoglobin 34pg (25-35) Mean Corpuscular Hemoglobin Concent 34g/dL (31-37) Red Cell Distribution Width 23.1% (11.5-14.5) Platelet Count 21x10^3/uL (140-400) Neutrophils (%) (Auto) 80% (31-73) Lymphocytes (%) (Auto) 13% (24-48) Monocytes (%) (Auto) 6% (0-9) Eosinophils (%) (Auto) 0% (0-3) Basophils (%) (Auto) 0% (0-3) Neutrophils # (Auto) 2.0x10^3uL (1.8-7.7) Lymphocytes # (Auto) 0.3x10^3/uL (1.0-4.8) Monocytes # (Auto) 0.2x10^3/uL (0.0-1.1) Eosinophils # (Auto) 0.0x10^3/uL (0.0-0.7) Basophils # (Auto) 0.0x10^3/uL (0.0-0.2) Sodium Level 141mmol/L (136-145) Potassium Level 3.2mmol/L (3.5-5.1) Chloride Level 102mmol/L (98-107) Carbon Dioxide Level 29mmol/L (21-32) Anion Gap 10 (6-14) Blood Urea Nitrogen 30mg/dL (7-20) Creatinine 1.9mg/dL (0.6-1.0) Estimated GFR (Cockcroft-Gault) 26.4 Glucose Level 82mg/dL (70-99) Calcium Level 7.9mg/dL (8.5-10.1) Phosphorus Level 3.5mg/dL (2.6-4.7) Magnesium Level 1.8mg/dL (1.8-2.4) Creatine Kinase 27U/L (26-192) Albumin 2.9g/dL (3.4-5.0) Micro Micro Microbiology 12/27/16 Blood Culture - Final, Complete NO GROWTH AFTER 5 DAYS 12/31/16 Urine Culture - Preliminary, Resulted 12/31/16 Urine Culture Result 1 (MANE) - Preliminary, Resulted Review of Systems Constitutional: yes: alert, oriented, weakness Ears/Nose/Throat: Yes: no symptom reported Eyes: Yes: no symptom reported Pulmonary: Yes no symptom reported Cardiovascular: Yes no symptom reported Musculoskeletal: Yes: muscle stiffness Skin: Yes no symptom reported Psychiatric/Neurological: Yes: weakness Physical Exam General Appearance: no apparent distress Skin: warm Respiratory: decreased breath sounds Heart: S1S2, RRR Abdomen: soft, bowel sounds present Genitourinary: bladder flat Extremities: pulses present, atrophy Neurology: alert Musculoskeletal: Other Assessment Assessment IMP ARTURO HYPOTENSION-BETTER DECONDITIONING CHOLANGIOCARCINOMA PLAN CONT WITH IVF'S HD PROB TOMORROW LABS IN AM IGNACIO BATRES MD Jan 02, 2017 10:25
[2017-01-02] MEDS ORDERED: FUROSEMIDE 40 MG/4 ML VIAL. IVP ONE (10:45)
[2017-01-02 11:00] VITALS: BP 150/69
--- NOTE | 2017-01-02 11:23 | PDOC ---
Infectious Disease Note Subjective Subjective s/p platelets Appetite improving, trying to eat a Dc[employer] breakfast sandwich now Denies pain Left arm swollen ROS ROS GEN: Denies fevers, chills, sweats CV: Denies chest pain RESP: Denies shortness of air, cough GI: Denies n/v/d Vital Sign Vital Signs Vital Signs Date Time Temp Pulse Resp B/P Pulse Ox O2 Delivery O2 Flow Rate FiO2 01/02/17 11:00 97.6 77 20 150/69 92 Room Air 97.6 Physical Exam PHYSICAL EXAM GENERAL: Propped up in bed, relaxed appearance, eating HEENT: OC/OP clear LUNGS: Clear HEART: S1S2, no gallop, no murmur ABD: Obese, BS present, soft, NT EXT: BLE edema little less, and medial petechial type rash, fading. A few scabs right posterior/lateral calf RUE swollen and warm. 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 clean [facility] clean Labs Lab Laboratory Tests Test 01/01/17 18:25 01/02/17 06:30 Erythrocyte Sedimentation Rate 20 (0-25) C-Reactive Protein, Quantitative 52.8mg/L (0-3.3) White Blood Count 2.5x10^3/uL (4.0-11.0) Red Blood Count 2.20x10^6/uL (3.50-5.40) Hemoglobin 7.4g/dL (12.0-15.5) Hematocrit 22.0% (36.0-47.0) Mean Corpuscular Volume 100fL (79-100) Mean Corpuscular Hemoglobin 34pg (25-35) Mean Corpuscular Hemoglobin Concent 34g/dL (31-37) Red Cell Distribution Width 23.1% (11.5-14.5) Platelet Count 21x10^3/uL (140-400) Neutrophils (%) (Auto) 80% (31-73) Lymphocytes (%) (Auto) 13% (24-48) Monocytes (%) (Auto) 6% (0-9) Eosinophils (%) (Auto) 0% (0-3) Basophils (%) (Auto) 0% (0-3) Neutrophils # (Auto) 2.0x10^3uL (1.8-7.7) Lymphocytes # (Auto) 0.3x10^3/uL (1.0-4.8) Monocytes # (Auto) 0.2x10^3/uL (0.0-1.1) Eosinophils # (Auto) 0.0x10^3/uL (0.0-0.7) Basophils # (Auto) 0.0x10^3/uL (0.0-0.2) Sodium Level 141mmol/L (136-145) Potassium Level 3.2mmol/L (3.5-5.1) Chloride Level 102mmol/L (98-107) Carbon Dioxide Level 29mmol/L (21-32) Anion Gap 10 (6-14) Blood Urea Nitrogen 30mg/dL (7-20) Creatinine 1.9mg/dL (0.6-1.0) Estimated GFR (Cockcroft-Gault) 26.4 Glucose Level 82mg/dL (70-99) Calcium Level 7.9mg/dL (8.5-10.1) Phosphorus Level 3.5mg/dL (2.6-4.7) Magnesium Level 1.8mg/dL (1.8-2.4) Creatine Kinase 27U/L (26-192) Albumin 2.9g/dL (3.4-5.0) Micro BLOOD CULTURE Preliminary NO GROWTH AFTER 5 DAYS Objective Assessment Right LE cellulitis - better ARTURO and electrolyte abnormalities - better s/p HD Pancytopenia - too early for abx to be involved mild encephalopathy - improved Cholangiocarcinoma s/p chemo 12/24 Plan Plan of Care Cont Zosyn f/u am labs Venous US RUE r/o clot D/w D/w Dr. Canales Patient seen and examined. Chart reviewed. 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 Agree with above plan THU POLK GLASS PRESSER Jan 02, 2017 11:23 MILLICENT RAYMUNDO MD Jan 02, 2017 15:53
--- NOTE | 2017-01-02 12:15 | RAD ---
Right upper extremity venous duplex study 01/02/2017 Clinical history: Right arm swelling Technique: Using a combination of real-time ultrasound imaging and color-flow and pulse Doppler imaging techniques, duplex evaluation of the major venous structures of the right upper extremity to include the right subclavian and right internal jugular veins was performed. Multiple images were obtained. Findings: Occlusive thrombus is seen involving the visualized portions of the right internal jugular vein. The right subclavian vein is patent. There is no sonographic evidence of venous thrombosis involving the visualized venous structures of the right upper extremity. Impression: Occlusive thrombus is seen involving the visualized portions of the right internal jugular vein.
--- NOTE | 2017-01-02 13:07 | PDOC ---
PROGRESS NOTES Chief Complaint Chief Complaint acute metabolic encephalopathy, 2/2 ARTURO likely cellulitis BLE, diffuse, vs. side effect of gemzar causing edema Acute renal failure, oliguric ATN 2/2 gemzar hyperkalemia, gap metabolic acidosis, uremia GERD peripheral neuropathy cholangiocarcinoma STAGE 4 obesity hypomagnesemia pancytopenia 2/2 chemo N/V, diarrhea with chemo , ARTURO, HD severe malnutrition hypokalemia right upper EXT dvt at right IJ plan: fu with renal, onco, id on multiple abx, zosyn, ZYVOX and micofungin as per id cont HD as per renal ptot monitor urine output better now, will give another lasix 40mg iv x1 gi ppx add reglan, zofran for nausea 1u PLT transfusion 01/01 will not do full AC for DVT given low PLT, fu with onco History of Present Illness History of Present Illness feels N/V and diarrhea for 2 days low urine output 200mls 24 hours, and dark despite IV fluids, better on 01/01, responds well with lasix pancytopenia tremor better HD 12/28, 12/29, 12/30, 01/01 low PLT 8 01/01 1u transfusion right arm dvt 01/02 Vitals Vitals Vital Signs Date Time Temp Pulse Resp B/P Pulse Ox O2 Delivery O2 Flow Rate FiO2 01/02/17 11:00 97.6 77 20 150/69 92 Room Air 97.6 Physical Exam General: Alert, Oriented X3, Cooperative, No acute distress, Other (very fatigued) Heart: Normal S1, Normal S2 Lungs: Clear, Crackles, Other Abdomen: Normal bowel sounds, Soft, No tenderness Extremities: Other (2+ edema Bilateral LE unchanged. right upper EXT edema ) Skin: Other (erythema improving) Labs LABS Laboratory Tests Test 01/01/17 18:25 01/02/17 06:30 Erythrocyte Sedimentation Rate 20 (0-25) C-Reactive Protein, Quantitative 52.8mg/L (0-3.3) White Blood Count 2.5x10^3/uL (4.0-11.0) Red Blood Count 2.20x10^6/uL (3.50-5.40) Hemoglobin 7.4g/dL (12.0-15.5) Hematocrit 22.0% (36.0-47.0) Mean Corpuscular Volume 100fL (79-100) Mean Corpuscular Hemoglobin 34pg (25-35) Mean Corpuscular Hemoglobin Concent 34g/dL (31-37) Red Cell Distribution Width 23.1% (11.5-14.5) Platelet Count 21x10^3/uL (140-400) Neutrophils (%) (Auto) 80% (31-73) Lymphocytes (%) (Auto) 13% (24-48) Monocytes (%) (Auto) 6% (0-9) Eosinophils (%) (Auto) 0% (0-3) Basophils (%) (Auto) 0% (0-3) Neutrophils # (Auto) 2.0x10^3uL (1.8-7.7) Lymphocytes # (Auto) 0.3x10^3/uL (1.0-4.8) Monocytes # (Auto) 0.2x10^3/uL (0.0-1.1) Eosinophils # (Auto) 0.0x10^3/uL (0.0-0.7) Basophils # (Auto) 0.0x10^3/uL (0.0-0.2) Sodium Level 141mmol/L (136-145) Potassium Level 3.2mmol/L (3.5-5.1) Chloride Level 102mmol/L (98-107) Carbon Dioxide Level 29mmol/L (21-32) Anion Gap 10 (6-14) Blood Urea Nitrogen 30mg/dL (7-20) Creatinine 1.9mg/dL (0.6-1.0) Estimated GFR (Cockcroft-Gault) 26.4 Glucose Level 82mg/dL (70-99) Calcium Level 7.9mg/dL (8.5-10.1) Phosphorus Level 3.5mg/dL (2.6-4.7) Magnesium Level 1.8mg/dL (1.8-2.4) Creatine Kinase 27U/L (26-192) Albumin 2.9g/dL (3.4-5.0) Review of Systems Review of Systems no fever, chills, sob or chest pain Assessment and Plan Assessmemt and Plan Problems Medical Problems: (1) Cellulitis Status: Acute Problems: Comment Review of Relevant I have reviewed the following items ketty (where applicable) has been applied. Labs Laboratory Tests Test 4/21/17 18:01 01/01/17 04:00 01/01/17 18:25 01/02/17 06:30 Urine Collection Type U cath Urine Color Shari Urine Clarity Turbid Urine pH 5.0 Urine Specific [place] 1.025 Urine Protein 30mg/dL (NEG-TRACE) Urine Glucose (UA) Negativemg/dL (NEG) Urine Ketones (Stick) Negativemg/dL (NEG) Urine Blood Large (NEG) Urine Nitrite Negative (NEG) Urine Bilirubin Small (NEG) Urine Urobilinogen Dipstick 0.2mg/dL (0.2 mg/dL) Urine Leukocyte Esterase Small (NEG) Urine RBC Tntc/HPF (0-2) Urine WBC 1-4/HPF (0-4) Urine Squamous Epithelial Cells Occ/LPF Urine Bacteria Few/HPF (0-FEW) Urine Hyaline Casts Moderate/HPF Urine Mucus Mod/LPF Urine Yeast Present/HPF White Blood Count 2.5x10^3/uL (4.0-11.0) 2.5x10^3/uL (4.0-11.0) Red Blood Count 2.22x10^6/uL (3.50-5.40) 2.20x10^6/uL (3.50-5.40) Hemoglobin 7.7g/dL (12.0-15.5) 7.4g/dL (12.0-15.5) Hematocrit 22.0% (36.0-47.0) 22.0% (36.0-47.0) Mean Corpuscular Volume 99fL (79-100) 100fL (79-100) Mean Corpuscular Hemoglobin 35pg (25-35) 34pg (25-35) Mean Corpuscular Hemoglobin Concent 35g/dL (31-37) 34g/dL (31-37) Red Cell Distribution Width 23.0% (11.5-14.5) 23.1% (11.5-14.5) Platelet Count 8x10^3/uL (140-400) 21x10^3/uL (140-400) Neutrophils (%) (Auto) 86% (31-73) 80% (31-73) Lymphocytes (%) (Auto) 12% (24-48) 13% (24-48) Monocytes (%) (Auto) 2% (0-9) 6% (0-9) Eosinophils (%) (Auto) 0% (0-3) 0% (0-3) Basophils (%) (Auto) 0% (0-3) 0% (0-3) Neutrophils # (Auto) 2.2x10^3uL (1.8-7.7) 2.0x10^3uL (1.8-7.7) Lymphocytes # (Auto) 0.3x10^3/uL (1.0-4.8) 0.3x10^3/uL (1.0-4.8) Monocytes # (Auto) 0.0x10^3/uL (0.0-1.1) 0.2x10^3/uL (0.0-1.1) Eosinophils # (Auto) 0.0x10^3/uL (0.0-0.7) 0.0x10^3/uL (0.0-0.7) Basophils # (Auto) 0.0x10^3/uL (0.0-0.2) 0.0x10^3/uL (0.0-0.2) Sodium Level 141mmol/L (136-145) 141mmol/L (136-145) Potassium Level 2.9mmol/L (3.5-5.1) 3.2mmol/L (3.5-5.1) Chloride Level 101mmol/L (98-107) 102mmol/L (98-107) Carbon Dioxide Level 29mmol/L (21-32) 29mmol/L (21-32) Anion Gap 11 (6-14) 10 (6-14) Blood Urea Nitrogen 28mg/dL (7-20) 30mg/dL (7-20) Creatinine 1.9mg/dL (0.6-1.0) 1.9mg/dL (0.6-1.0) Estimated GFR (Cockcroft-Gault) 26.4 26.4 Glucose Level 85mg/dL (70-99) 82mg/dL (70-99) Calcium Level 7.3mg/dL (8.5-10.1) 7.9mg/dL (8.5-10.1) Phosphorus Level 3.4mg/dL (2.6-4.7) 3.5mg/dL (2.6-4.7) Magnesium Level 2.0mg/dL (1.8-2.4) 1.8mg/dL (1.8-2.4) Creatine Kinase 38U/L (26-192) 27U/L (26-192) Albumin 2.9g/dL (3.4-5.0) 2.9g/dL (3.4-5.0) Erythrocyte Sedimentation Rate 20 (0-25) C-Reactive Protein, Quantitative 52.8mg/L (0-3.3) Laboratory Tests Test 01/01/17 18:25 01/02/17 06:30 Erythrocyte Sedimentation Rate 20 (0-25) C-Reactive Protein, Quantitative 52.8mg/L (0-3.3) White Blood Count 2.5x10^3/uL (4.0-11.0) Red Blood Count 2.20x10^6/uL (3.50-5.40) Hemoglobin 7.4g/dL (12.0-15.5) Hematocrit 22.0% (36.0-47.0) Mean Corpuscular Volume 100fL (79-100) Mean Corpuscular Hemoglobin 34pg (25-35) Mean Corpuscular Hemoglobin Concent 34g/dL (31-37) Red Cell Distribution Width 23.1% (11.5-14.5) Platelet Count 21x10^3/uL (140-400) Neutrophils (%) (Auto) 80% (31-73) Lymphocytes (%) (Auto) 13% (24-48) Monocytes (%) (Auto) 6% (0-9) Eosinophils (%) (Auto) 0% (0-3) Basophils (%) (Auto) 0% (0-3) Neutrophils # (Auto) 2.0x10^3uL (1.8-7.7) Lymphocytes # (Auto) 0.3x10^3/uL (1.0-4.8) Monocytes # (Auto) 0.2x10^3/uL (0.0-1.1) Eosinophils # (Auto) 0.0x10^3/uL (0.0-0.7) Basophils # (Auto) 0.0x10^3/uL (0.0-0.2) Sodium Level 141mmol/L (136-145) Potassium Level 3.2mmol/L (3.5-5.1) Chloride Level 102mmol/L (98-107) Carbon Dioxide Level 29mmol/L (21-32) Anion Gap 10 (6-14) Blood Urea Nitrogen 30mg/dL (7-20) Creatinine 1.9mg/dL (0.6-1.0) Estimated GFR (Cockcroft-Gault) 26.4 Glucose Level 82mg/dL (70-99) Calcium Level 7.9mg/dL (8.5-10.1) Phosphorus Level 3.5mg/dL (2.6-4.7) Magnesium Level 1.8mg/dL (1.8-2.4) Creatine Kinase 27U/L (26-192) Albumin 2.9g/dL (3.4-5.0) Microbiology 12/27/16 Blood Culture - Final, Complete NO GROWTH AFTER 5 DAYS 12/31/16 Urine Culture - Preliminary, Resulted 12/31/16 Urine Culture Result 1 (MANE) - Preliminary, Resulted Medications Current Medications Acetaminophen (Tylenol) 650 mg 1X ONCE PO Last administered on 12/27/16 09:11 ; Start 12/27/16 at 08:15; Stop 12/27/16 at 08:22; Status DC Diphenhydramine HCl (Benadryl) 25 mg 1X ONCE PO Last administered on 09:12; Start 12/27/16 at 08:15; Stop 12/27/16 at 08:22; Status DC Furosemide (Lasix) 20 mg 1X ONCE IVP ; Start 12/27/16 at 08:15; Stop 12/27/16 at 08:22; Status DC Fentanyl Citrate (Fentanyl 2ml Vial) 25 mcg PRN QID PRN IV PAIN; Start at 16:45; Stop 12/29/16 at 21:00; Status DC Lisinopril (Prinivil) 10 mg DAILY PO ; Start 12/28/16 at 09:00; Stop 12/28/16 at 09:00; Status DC Oxycodone/ Acetaminophen (Percocet 5/325) 1 tab Q4HRS PRN PO MILD/MODERATE PAIN Last administered on 01/01/17 17:44; Start 12/27/16 at 16:45 Gabapentin (Neurontin) 300 mg TID PO Last administered on 12/28/16 10:44; Start 12/27/16 at 21:00; Stop 12/28/16 at 15:23; Status DC Cetirizine HCl (Zyrtec) 10 mg PRN DAILY PRN PO ALLERGIES; Start 12/28/16 at 09: 00 Pantoprazole Sodium (Protonix) 40 mg DAILYAC PO Last administered on 01/02/17 08:15; Start 12/28/16 at 07:30 Oxycodone/ Acetaminophen 2 tab 2 tab Q4HRS PRN PO SEVERE PAIN Last administered on 01/01/17 03:45; Start 12/27/16 at 16:45 Sodium Chloride (Iv Sodium Chloride 0.9% 1000ml Bag) 1,000 ml @ 75 mls/hr [id number] IV Last administered on 12/28/16 07:12; Start 12/27/16 at 17:30; Stop 12/28/16 at 08:15; Status DC Piperacillin Sod/ Tazobactam Sod (Zosyn Per Pharmacy) 1 each PRN DAILY PRN MC SEE COMMENTS; Start 12/27/16 at 17:30; Stop 12/28/16 at 07:27; Status DC Vancomycin HCl 1 each 1 each PRN DAILY PRN MC SEE COMMENTS Last administered on 12/27/16 18:45; Start 12/27/16 at 17:30; Stop 12/27/16 at 18:51; Status DC Vancomycin HCl 2 gm/Sodium Chloride 500 ml @ 250 mls/hr 1X ONCE IV ; Start at 17:45; Stop 12/27/16 at 18:51; Status DC Piperacillin Sod/ Tazobactam Sod 3.375 gm/Sodium Chloride 50 ml @ 100 mls/hr 1X ONCE IV Last administered on 12/27/16 18:07; Start 12/27/16 at 18:00; Stop 12/27/16 at 18:29; Status DC Piperacillin Sod/ Tazobactam Sod 2.25 gm/Sodium Chloride 50 ml @ 100 mls/hr Q6HRS IV Last administered on 12/28/16 06:08; Start 12/28/16 at 00:00; Stop at 07:31; Status DC Vancomycin HCl 1.5 gm/Sodium Chloride 500 ml @ 250 mls/hr Q48H IV ; Start 12/29 at 20:00; Stop 12/29/16 at 20:00; Status DC Micafungin Sodium 100 mg/Dextrose 100 ml @ 100 mls/hr Q24H IV Last administered on 12/31/16 09:13; Start 12/28/16 at 08:00; Stop 12/31/16 at 10:43 ; Status DC Linezolid 300 ml @ 300 mls/hr Q12HR IV Last administered on 12/31/16 09:13; Start 12/28/16 at 09:00; Stop 12/31/16 at 10:43; Status DC Piperacillin Sod/ Tazobactam Sod 2.25 gm/Sodium Chloride 50 ml @ 100 mls/hr Q8HRS IV Last administered on 01/02/17 06:25; Start 12/28/16 at 14:00 Calcium Chloride 2000 mg/Sodium Chloride 120 ml @ 240 mls/hr 1X ONCE IV Last administered on 12/28/16 08:54; Start 12/28/16 at 08:00; Stop 12/28/16 at 08:29 ; Status DC Magnesium Sulfate/ Dextrose (Magnesium Sulfate PREMIX 2GM) 50 ml @ 25 mls/hr PRN DAILY PRN IV for Mag < 1.7 on am labs Last administered on 12/29/16 22:56 ; Start 12/28/16 at 08:15 Sodium Bicarbonate 50 meq 50 meq Q2H IV Last administered on 12/28/16 15:33; Start 12/28/16 at 08:30; Stop 12/28/16 at 10:31; Status DC Sodium Chloride 500 ml @ 0 mls/hr PRN QID PRN IV UO< 30cc/hr over previous 6hrs ; Start 12/28/16 at 08:15 Sodium Bicarbonate/ Dextrose 1,150 ml @ 100 mls/hr [id number] IV Last administered on 12/30/16 06:08; Start 12/28/16 at 09:00; Stop 12/30/16 at 08:59 ; Status DC Heparin Sodium (Porcine) (Heparin Sodium) 10,000 unit STK-MED ONCE .ROUTE ; Start 12/28/16 at 08:46; Stop 12/28/16 at 08:47; Status DC Lidocaine/Sodium Bicarbonate 20 ml 20 ml STK-MED ONCE IJ ; Start 12/28/16 at 08: 47; Stop 12/28/16 at 08:48; Status DC Heparin Sodium/ Sodium Chloride 500 ml @ As Directed STK-MED ONCE .ROUTE ; Start 12/28/16 at 08:47; Stop 12/28/16 at 08:48; Status DC Lidocaine/Sodium Bicarbonate (Buffered Lidocaine 1%) 3 ml 1X ONCE IJ Last administered on 12/28/16 10:10; Start 12/28/16 at 09:00; Stop 12/28/16 at 09:01 ; Status DC Heparin Sodium/ Sodium Chloride 60 unit 1X ONCE IV Last administered on 10:11; Start 12/28/16 at 09:00; Stop 12/28/16 at 09:01; Status DC Heparin Sodium (Porcine) (Heparin Sodium) 2,500 unit 1X ONCE INT CAT Last administered on 12/28/16 10:10; Start 12/28/16 at 09:00; Stop 12/28/16 at 09:01 ; Status DC Midazolam HCl (Versed) 2 mg STK-MED ONCE .ROUTE ; Start 12/28/16 at 09:41; Stop 12/28/16 at 09:42; Status DC Saliva Substitute (Biotene Moisturizing Mouth) 2 spray PRN Q15MIN PRN PO DRY MOUTH Last administered on 12/31/16 17:53; Start 12/28/16 at 13:15 Gabapentin (Neurontin) 300 mg DAILY PO Last administered on 01/02/17 08:15; Start 12/29/16 at 09:00 Acetaminophen (Tylenol) 650 mg PRN Q6HRS PRN PO MILD PAIN Last administered on 01/02/17 08:19; Start 12/28/16 at 18:15 Ondansetron HCl (Zofran) 4 mg PRN Q6HRS PRN IV NAUSEA/VOMITING Last administered on 12/29/16 11:10; Start 12/29/16 at 10:45; Stop 12/29/16 at 13:53 ; Status DC Ondansetron HCl (Zofran) 8 mg PRN Q8HRS PRN IV NAUSEA/VOMITING Last administered on 12/31/16 03:35; Start 12/29/16 at 14:00; Stop 12/31/16 at 09:03 ; Status DC Prochlorperazine Edisylate 10 mg 10 mg 1X ONCE IV Last administered on 14:00; Start 12/29/16 at 14:00; Stop 12/29/16 at 14:01; Status DC Sodium Chloride 500 ml @ 500 mls/hr 1X ONCE IV Last administered on 23:20; Start 12/29/16 at 23:30; Stop 12/30/16 at 00:29; Status DC Sodium Chloride 500 ml @ 500 mls/hr 1X ONCE IV Last administered on 00:05; Start 12/30/16 at 00:00; Stop 12/30/16 at 00:59; Status DC Sodium Chloride 1,000 ml @ 1,000 mls/hr Q1H PRN IV hypotension; Start 12/30/16 at 08:03; Stop 12/30/16 at 14:02; Status DC Albumin Human (Albuminar) 200 ml @ 200 mls/hr 1X PRN PRN IV Hypotension Last administered on 12/30/16 09:22; Start 12/30/16 at 08:15; Stop 12/30/16 at 14:14 ; Status DC Sodium Chloride (Normal Saline Flush) 10 ml 1X PRN PRN IV AP catheter pack; Start 12/30/16 at 08:15; Stop 12/31/16 at 08:14; Status DC Sodium Chloride (Normal Saline Flush) 10 ml 1X PRN PRN IV [employer]IL [employer] catheter pack; Start 12/30/16 at 08:15; Stop 12/31/16 at 08:14; Status DC Info (PHARMACY MONITORING -- do not chart) 1 each PRN DAILY PRN MC SEE COMMENTS ; Start 12/30/16 at 08:15 Info (PHARMACY MONITORING -- do not chart) 1 each PRN DAILY PRN MC SEE COMMENTS ; Start 12/30/16 at 08:15; Status UNV Paricalcitol (Zemplar) 5 mcg 3X/WEEK IV Last administered on 12/31/16 09:14; Start 12/31/16 at 09:00 Calcium Acetate 1334 mg 1,334 mg TIDWMEALS PO Last administered on 01/02/17 11 :43; Start 12/30/16 at 12:00 Albumin Human (Plasmanate) 500 ml @ 120 mls/hr Q4HRS IV Last administered on 16:45; Start 12/30/16 at 12:00; Stop 12/30/16 at 19:59; Status DC Ondansetron HCl (Zofran) 8 mg PRN Q6HRS PRN IV NAUSEA/VOMITING, 2ND CHOICE; Start 12/31/16 at 08:58 Lorazepam (Ativan) 0.5 mg PRN Q4HRS PRN IV ANXIETY / AGITATION Last administered on 01/01/17 09:43; Start 12/31/16 at 09:00 Prochlorperazine Edisylate (Compazine) 10 mg PRN Q6HRS PRN IM NAUSEA/VOMITING Last administered on 12/31/16 09:15; Start 12/31/16 at 09:00; Stop 01/01/17 at 11:48; Status DC Metoclopramide HCl 5 mg 5 mg PRN Q6HRS PRN IV NAUSEA/VOMITING, 1ST CHOICE Last administered on 01/01/17 09:42; Start 12/31/16 at 11:45 Magnesium Sulfate/ Dextrose 50 ml @ 25 mls/hr 1X ONCE IV Last administered on 12/31/16 17:54; Start 12/31/16 at 15:00; Stop 12/31/16 at 16:59; Status DC Albumin Human (Plasmanate) 500 ml @ 75 mls/hr Q6H40M IV Last administered on 03:44; Start 12/31/16 at 15:15; Stop 01/01/17 at 11:14; Status DC Prochlorperazine Edisylate (Compazine) 10 mg PRN Q6HRS PRN IV NAUSEA/VOMITING, 3RD CHOICE Last administered on 01/01/17 17:38; Start 01/01/17 at 11:45 Potassium Chloride (Klor-Con) 40 meq 1X ONCE PO Last administered on 13:02; Start 01/01/17 at 12:00; Stop 01/01/17 at 12:01; Status DC Furosemide (Lasix) 40 mg 1X ONCE IVP Last administered on 01/01/17 14:24; Start 01/01/17 at 14:00; Stop 01/01/17 at 14:01; Status DC Albuterol/ Ipratropium (Duoneb) 3 ml PRN Q6HRS PRN NEB SHORTNESS OF BREATH Last administered on 01/01/17 17:23; Start 01/01/17 at 13:45 Furosemide (Lasix) 40 mg 1X ONCE IVP Last administered on 01/02/17 11:43; Start 01/02/17 at 10:45; Stop 01/02/17 at 10:46; Status DC Active Scripts Active Reported Claritin (Loratadine) 10 Mg Tablet 1 Tab PO DAILY PRN Bactrim 400-80 Mg Tablet (Sulfamethoxazole/Trimethoprim) 1 Each Tablet 1 Tab PO BID Gabapentin 300 Mg Capsule 300 Mg PO TID Zestril (Lisinopril) 10 Mg Tablet 10 Mg PO DAILY Cyanocobalamin Injection (Cyanocobalamin (Vitamin B-12)) 1,000 Mcg/1 Ml Vial 1, 000 Mcg QMONTH Percocet 5-325 Mg Tablet (Oxycodone/Acetaminophen) 1 Each Tablet 1-2 Tab PO Q4- 6HRS Prilosec Otc (Omeprazole Magnesium) 20 Mg Tablet.dr 20 Mg PO DAILY Vitals/I & O Vital Sign - Last 24 Hours 01/01/17 01/01/17 01/01/17 01/01/17 13:15 14:15 15:00 17:26 Temp 97.1 97.6 97.6 97.1 97.6 97.6 Pulse 66 65 72 Resp 20 20 20 B/P 118/67 122/68 133/67 Pulse Ox 95 90 96 O2 Delivery Room Air Room Air Room Air 01/01/17 01/01/17 01/01/17 01/01/17 18:44 19:03 20:00 23:00 Temp 97.7 97.7 97.7 97.7 Pulse 74 68 Resp 20 18 18 B/P 131/63 128/68 Pulse Ox 93 95 O2 Delivery Room Air Room Air Room Air Room Air 01/02/17 01/02/17 01/02/17 01/02/17 03:03 07:00 08:08 11:00 Temp 97.4 98.1 97.6 97.4 98.1 97.6 Pulse 69 77 77 Resp 18 20 20 B/P 136/67 146/71 150/69 Pulse Ox 94 96 92 O2 Delivery Room Air Room Air Room Air Room Air Intake and Output 01/01/17 01/01/17 01/02/17 15:00 23:00 07:00 Intake Total 1672 ml 881 ml 0 ml Output Total 1025 ml Balance 1672 ml 881 ml -1025 ml KIKE LORA MD Jan 02, 2017 13:07
[2017-01-02] MEDS ORDERED: POTASSIUM CHLORIDE 20 MEQ TABLET.ER. PO ONE (13:15)
[2017-01-02] MEDS: IPRATRPIUM/ALBUTEROL 0.5/2.5MG 3 ML NEBU. NEB PRN ×2 (14:12→21:52)
[2017-01-02] MEDS ORDERED: HEPARIN for IV BOLUS 10,000 UNIT/10 ML VIAL. IV PRN ×2 (14:45)
[2017-01-02 15:00] VITALS: BP 142/69
[2017-01-02 15:06] LABS: INR 1.2 (0.8-1.1); PROTHROMBIN TIME PATIENT 14.1 SEC (11.7-14.0)
[2017-01-02] MEDS ORDERED: WARFARIN 5 MG TABLET. PO ONE (16:00)
[2017-01-02] MEDS: HEPARIN 25,000UTS/500ML PREMIX 500 ML IV PRN (17:43)
[2017-01-02 19:55] VITALS: BP 150/68
[2017-01-02] MEDS: oxyCODONE/APAP 5/325 1 TAB TABLET PO PRN (21:22)
[2017-01-02 23:00] VITALS: BP 130/54
[2017-01-03] VITALS (9 sets, daily range): BP systolic 140–156; BP diastolic 59–76
[2017-01-03] MEDS: PANTOPRAZOLE 40 MG TABLET.DR. PO SCH (03:36)
[2017-01-03] MEDS: ACETAMINOPHEN 325 MG TABLET. PO PRN ×2 (03:36→19:01)
[2017-01-03] MEDS: IPRATRPIUM/ALBUTEROL 0.5/2.5MG 3 ML NEBU. NEB PRN (05:23)
[2017-01-03] MEDS: PIPERACILLIN/TAZOBACTAM 2.25 GM in IV NORMAL SALINE 50ML 50 ML IV SCH (06:04)
[2017-01-03 06:43] LABS: BASO % 0 % (0-3); EOS % 0 % (0-3); HEMOGLOBIN 7.6 g/dL (12.0-15.5); LYMPH # 0.5 x10^3/uL (1.0-4.8); LYMPH % 16 % (24-48); MEAN CORPUSCULAR HEMOGLOBIN 34 pg (25-35); MEAN CORPUSCULAR HGB CONC 35 g/dL (31-37); MEAN CORPUSCULAR VOLUME 98 fL (79-100); MONO % 12 % (0-9); NEUT % 72 % (31-73); RED BLOOD COUNT 2.26 x10^6/uL (3.50-5.40); RED CELL DISTRIBUTION WIDTH 23.7 % (11.5-14.5); WHITE BLOOD COUNT 3.4 x10^3/uL (4.0-11.0)
[2017-01-03 06:48] LABS: INR 1.3 (0.8-1.1); PROTHROMBIN TIME PATIENT 15.4 SEC (11.7-14.0)
[2017-01-03 06:59] LABS: PLATELET COUNT 18 x10^3/uL (140-400)
[2017-01-03 07:14] LABS: ALBUMIN 2.8 g/dL (3.4-5.0); CALCIUM 7.8 mg/dL (8.5-10.1); CREATININE 1.6 mg/dL (0.6-1.0); GFR 32.2; PHOSPHORUS 3.2 mg/dL (2.6-4.7); POTASSIUM 3.1 mmol/L (3.5-5.1)
--- NOTE | 2017-01-03 08:51 | PDOC ---
PROGRESS NOTES Subjective Subjective c/c - f/u of Cholangiocarcinoma stage 4 Objective Objective Vital Signs Date Time Temp Pulse Resp B/P Pulse Ox O2 Delivery O2 Flow Rate FiO2 01/03/17 05:23 93 Room Air 01/03/17 03:10 98.2 77 18 140/61 98.2 Intake and Output 01/03/17 06:59 Intake Total 370 ml Output Total 2420 ml Balance -2050 ml Intake Oral 270 ml IV Total 100 ml Output Urine Total 2420 ml Physical Exam Heart: Normal S1, Normal S2 General: Alert, Oriented X3 Lungs: Clear to auscultation Neuro: Normal speech Psych/Mental Status: Mental status NL Assessment Assessment Problems Medical Problems: (1) Cellulitis Status: Acute IMPRESSION AND PLAN: 1. Cholangiocarcinoma stage 4. She is on chemotherapy with Gemzar and Xeloda, her last treatment was given on 12/24/2016. I will hold further chemotherapy in view of cellulitis and renal failure and she will follow up with me upon discharge. I will also plan for a PET scan as outpatient. I agree that she has likely gemzar related toxicities with ARF and edema. 2. Acute renal failure, management per Dr. Kerr. 3. Hypocalcemia. s/p IV calcium. 4. Hypoalbuminemia due to malnutrition from malignancy. 5. Cellulitis. I discussed with Dr. Óscar Thacker. She was started on antibiotics for cellulitis of bilateral lower extremities. She had a venous Doppler of bilateral lower extremities on 12/28/2016 that is negative for DVT. 6. Twitching - resolved. 7. Recurrent LE edema, rash. At [facility] last week was thought to be c/w gemzar- related LE swelling/ capillary leak causing erythema, no signs infxn. Treating empirically now with abx. ?if the erythema itself is also gemzar related. 8. DVT - RUE 01/02/17 - agree with IV heparin, hold warfarin till platelets >50. 9. Thrombocytopenia - plan platelet transfusion. Comment Review of Relevant I have reviewed the following items ketty (where applicable) has been applied. Labs Laboratory Tests Test 01/01/17 18:25 01/02/17 06:30 01/02/17 23:59 01/03/17 06:00 Erythrocyte Sedimentation Rate 20 (0-25) C-Reactive Protein, Quantitative 52.8mg/L (0-3.3) White Blood Count 2.5x10^3/uL (4.0-11.0) 3.4x10^3/uL (4.0-11.0) Red Blood Count 2.20x10^6/uL (3.50-5.40) 2.26x10^6/uL (3.50-5.40) Hemoglobin 7.4g/dL (12.0-15.5) 7.6g/dL (12.0-15.5) Hematocrit 22.0% (36.0-47.0) 22.0% (36.0-47.0) Mean Corpuscular Volume 100fL (79-100) 98fL (79-100) Mean Corpuscular Hemoglobin 34pg (25-35) 34pg (25-35) Mean Corpuscular Hemoglobin Concent 34g/dL (31-37) 35g/dL (31-37) Red Cell Distribution Width 23.1% (11.5-14.5) 23.7% (11.5-14.5) Platelet Count 21x10^3/uL (140-400) 18x10^3/uL (140-400) Neutrophils (%) (Auto) 80% (31-73) 72% (31-73) Lymphocytes (%) (Auto) 13% (24-48) 16% (24-48) Monocytes (%) (Auto) 6% (0-9) 12% (0-9) Eosinophils (%) (Auto) 0% (0-3) 0% (0-3) Basophils (%) (Auto) 0% (0-3) 0% (0-3) Neutrophils # (Auto) 2.0x10^3uL (1.8-7.7) 2.5x10^3uL (1.8-7.7) Lymphocytes # (Auto) 0.3x10^3/uL (1.0-4.8) 0.5x10^3/uL (1.0-4.8) Monocytes # (Auto) 0.2x10^3/uL (0.0-1.1) 0.4x10^3/uL (0.0-1.1) Eosinophils # (Auto) 0.0x10^3/uL (0.0-0.7) 0.0x10^3/uL (0.0-0.7) Basophils # (Auto) 0.0x10^3/uL (0.0-0.2) 0.0x10^3/uL (0.0-0.2) Prothrombin Time 14.1SEC (11.7-14.0) 15.4SEC (11.7-14.0) Prothromb Time International Ratio 1.2 (0.8-1.1) 1.3 (0.8-1.1) Sodium Level 141mmol/L (136-145) 139mmol/L (136-145) Potassium Level 3.2mmol/L (3.5-5.1) 3.1mmol/L (3.5-5.1) Chloride Level 102mmol/L (98-107) 101mmol/L (98-107) Carbon Dioxide Level 29mmol/L (21-32) 28mmol/L (21-32) Anion Gap 10 (6-14) 10 (6-14) Blood Urea Nitrogen 30mg/dL (7-20) 27mg/dL (7-20) Creatinine 1.9mg/dL (0.6-1.0) 1.6mg/dL (0.6-1.0) Estimated GFR (Cockcroft-Gault) 26.4 32.2 Glucose Level 82mg/dL (70-99) 94mg/dL (70-99) Calcium Level 7.9mg/dL (8.5-10.1) 7.8mg/dL (8.5-10.1) Phosphorus Level 3.5mg/dL (2.6-4.7) 3.2mg/dL (2.6-4.7) Magnesium Level 1.8mg/dL (1.8-2.4) Creatine Kinase 27U/L (26-192) 34U/L (26-192) Albumin 2.9g/dL (3.4-5.0) 2.8g/dL (3.4-5.0) Heparin Anti-Xa Act, Unfractionated 0.36IU/mL (0.30-0.70) 0.52IU/mL (0.30-0.70) Laboratory Tests Test 01/02/17 23:59 01/03/17 06:00 Heparin Anti-Xa Act, Unfractionated 0.36IU/mL (0.30-0.70) 0.52IU/mL (0.30-0.70) White Blood Count 3.4x10^3/uL (4.0-11.0) Red Blood Count 2.26x10^6/uL (3.50-5.40) Hemoglobin 7.6g/dL (12.0-15.5) Hematocrit 22.0% (36.0-47.0) Mean Corpuscular Volume 98fL (79-100) Mean Corpuscular Hemoglobin 34pg (25-35) Mean Corpuscular Hemoglobin Concent 35g/dL (31-37) Red Cell Distribution Width 23.7% (11.5-14.5) Platelet Count 18x10^3/uL (140-400) Neutrophils (%) (Auto) 72% (31-73) Lymphocytes (%) (Auto) 16% (24-48) Monocytes (%) (Auto) 12% (0-9) Eosinophils (%) (Auto) 0% (0-3) Basophils (%) (Auto) 0% (0-3) Neutrophils # (Auto) 2.5x10^3uL (1.8-7.7) Lymphocytes # (Auto) 0.5x10^3/uL (1.0-4.8) Monocytes # (Auto) 0.4x10^3/uL (0.0-1.1) Eosinophils # (Auto) 0.0x10^3/uL (0.0-0.7) Basophils # (Auto) 0.0x10^3/uL (0.0-0.2) Prothrombin Time 15.4SEC (11.7-14.0) Prothromb Time International Ratio 1.3 (0.8-1.1) Sodium Level 139mmol/L (136-145) Potassium Level 3.1mmol/L (3.5-5.1) Chloride Level 101mmol/L (98-107) Carbon Dioxide Level 28mmol/L (21-32) Anion Gap 10 (6-14) Blood Urea Nitrogen 27mg/dL (7-20) Creatinine 1.6mg/dL (0.6-1.0) Estimated GFR (Cockcroft-Gault) 32.2 Glucose Level 94mg/dL (70-99) Calcium Level 7.8mg/dL (8.5-10.1) Phosphorus Level 3.2mg/dL (2.6-4.7) Creatine Kinase 34U/L (26-192) Albumin 2.8g/dL (3.4-5.0) Microbiology 12/27/16 Blood Culture - Final, Complete NO GROWTH AFTER 5 DAYS 12/31/16 Urine Culture - Final, Complete 12/31/16 Urine Culture Result 1 (MANE) - Final, Complete Medications Current Medications Acetaminophen (Tylenol) 650 mg 1X ONCE PO Last administered on 12/27/16 09:11 ; Start 12/27/16 at 08:15; Stop 12/27/16 at 08:22; Status DC Diphenhydramine HCl (Benadryl) 25 mg 1X ONCE PO Last administered on 09:12; Start 12/27/16 at 08:15; Stop 12/27/16 at 08:22; Status DC Furosemide (Lasix) 20 mg 1X ONCE IVP ; Start 12/27/16 at 08:15; Stop 12/27/16 at 08:22; Status DC Fentanyl Citrate (Fentanyl 2ml Vial) 25 mcg PRN QID PRN IV PAIN; Start at 16:45; Stop 12/29/16 at 21:00; Status DC Lisinopril (Prinivil) 10 mg DAILY PO ; Start 12/28/16 at 09:00; Stop 12/28/16 at 09:00; Status DC Oxycodone/ Acetaminophen (Percocet 5/325) 1 tab Q4HRS PRN PO MILD/MODERATE PAIN Last administered on 01/01/17 17:44; Start 12/27/16 at 16:45 Gabapentin (Neurontin) 300 mg TID PO Last administered on 12/28/16 10:44; Start 12/27/16 at 21:00; Stop 12/28/16 at 15:23; Status DC Cetirizine HCl (Zyrtec) 10 mg PRN DAILY PRN PO ALLERGIES; Start 12/28/16 at 09: 00 Pantoprazole Sodium (Protonix) 40 mg DAILYAC PO Last administered on 01/03/17 03:36; Start 12/28/16 at 07:30 Oxycodone/ Acetaminophen 2 tab 2 tab Q4HRS PRN PO SEVERE PAIN Last administered on 01/02/17 21:22; Start 12/27/16 at 16:45 Sodium Chloride (Iv Sodium Chloride 0.9% 1000ml Bag) 1,000 ml @ 75 mls/hr [id number] IV Last administered on 12/28/16 07:12; Start 12/27/16 at 17:30; Stop 12/28/16 at 08:15; Status DC Piperacillin Sod/ Tazobactam Sod (Zosyn Per Pharmacy) 1 each PRN DAILY PRN MC SEE COMMENTS; Start 12/27/16 at 17:30; Stop 12/28/16 at 07:27; Status DC Vancomycin HCl 1 each 1 each PRN DAILY PRN MC SEE COMMENTS Last administered on 12/27/16 18:45; Start 12/27/16 at 17:30; Stop 12/27/16 at 18:51; Status DC Vancomycin HCl 2 gm/Sodium Chloride 500 ml @ 250 mls/hr 1X ONCE IV ; Start at 17:45; Stop 12/27/16 at 18:51; Status DC Piperacillin Sod/ Tazobactam Sod 3.375 gm/Sodium Chloride 50 ml @ 100 mls/hr 1X ONCE IV Last administered on 12/27/16 18:07; Start 12/27/16 at 18:00; Stop 12/27/16 at 18:29; Status DC Piperacillin Sod/ Tazobactam Sod 2.25 gm/Sodium Chloride 50 ml @ 100 mls/hr Q6HRS IV Last administered on 12/28/16 06:08; Start 12/28/16 at 00:00; Stop at 07:31; Status DC Vancomycin HCl 1.5 gm/Sodium Chloride 500 ml @ 250 mls/hr Q48H IV ; Start 12/29 at 20:00; Stop 12/29/16 at 20:00; Status DC Micafungin Sodium 100 mg/Dextrose 100 ml @ 100 mls/hr Q24H IV Last administered on 12/31/16 09:13; Start 12/28/16 at 08:00; Stop 12/31/16 at 10:43 ; Status DC Linezolid 300 ml @ 300 mls/hr Q12HR IV Last administered on 12/31/16 09:13; Start 12/28/16 at 09:00; Stop 12/31/16 at 10:43; Status DC Piperacillin Sod/ Tazobactam Sod 2.25 gm/Sodium Chloride 50 ml @ 100 mls/hr Q8HRS IV Last administered on 01/03/17 06:04; Start 12/28/16 at 14:00 Calcium Chloride 2000 mg/Sodium Chloride 120 ml @ 240 mls/hr 1X ONCE IV Last administered on 12/28/16 08:54; Start 12/28/16 at 08:00; Stop 12/28/16 at 08:29 ; Status DC Magnesium Sulfate/ Dextrose (Magnesium Sulfate PREMIX 2GM) 50 ml @ 25 mls/hr PRN DAILY PRN IV for Mag < 1.7 on am labs Last administered on 12/29/16 22:56 ; Start 12/28/16 at 08:15 Sodium Bicarbonate 50 meq 50 meq Q2H IV Last administered on 12/28/16 15:33; Start 12/28/16 at 08:30; Stop 12/28/16 at 10:31; Status DC Sodium Chloride 500 ml @ 0 mls/hr PRN QID PRN IV UO< 30cc/hr over previous 6hrs ; Start 12/28/16 at 08:15 Sodium Bicarbonate/ Dextrose 1,150 ml @ 100 mls/hr [id number] IV Last administered on 12/30/16 06:08; Start 12/28/16 at 09:00; Stop 12/30/16 at 08:59 ; Status DC Heparin Sodium (Porcine) (Heparin Sodium) 10,000 unit STK-MED ONCE .ROUTE ; Start 12/28/16 at 08:46; Stop 12/28/16 at 08:47; Status DC Lidocaine/Sodium Bicarbonate 20 ml 20 ml STK-MED ONCE IJ ; Start 12/28/16 at 08: 47; Stop 12/28/16 at 08:48; Status DC Heparin Sodium/ Sodium Chloride 500 ml @ As Directed STK-MED ONCE .ROUTE ; Start 12/28/16 at 08:47; Stop 12/28/16 at 08:48; Status DC Lidocaine/Sodium Bicarbonate (Buffered Lidocaine 1%) 3 ml 1X ONCE IJ Last administered on 12/28/16 10:10; Start 12/28/16 at 09:00; Stop 12/28/16 at 09:01 ; Status DC Heparin Sodium/ Sodium Chloride 60 unit 1X ONCE IV Last administered on 10:11; Start 12/28/16 at 09:00; Stop 12/28/16 at 09:01; Status DC Heparin Sodium (Porcine) (Heparin Sodium) 2,500 unit 1X ONCE INT CAT Last administered on 12/28/16 10:10; Start 12/28/16 at 09:00; Stop 12/28/16 at 09:01 ; Status DC Midazolam HCl (Versed) 2 mg STK-MED ONCE .ROUTE ; Start 12/28/16 at 09:41; Stop 12/28/16 at 09:42; Status DC Saliva Substitute (Biotene Moisturizing Mouth) 2 spray PRN Q15MIN PRN PO DRY MOUTH Last administered on 12/31/16 17:53; Start 12/28/16 at 13:15 Gabapentin (Neurontin) 300 mg DAILY PO Last administered on 01/02/17 08:15; Start 12/29/16 at 09:00 Acetaminophen (Tylenol) 650 mg PRN Q6HRS PRN PO MILD PAIN Last administered on 01/03/17 03:36; Start 12/28/16 at 18:15 Ondansetron HCl (Zofran) 4 mg PRN Q6HRS PRN IV NAUSEA/VOMITING Last administered on 12/29/16 11:10; Start 12/29/16 at 10:45; Stop 12/29/16 at 13:53 ; Status DC Ondansetron HCl (Zofran) 8 mg PRN Q8HRS PRN IV NAUSEA/VOMITING Last administered on 12/31/16 03:35; Start 12/29/16 at 14:00; Stop 12/31/16 at 09:03 ; Status DC Prochlorperazine Edisylate 10 mg 10 mg 1X ONCE IV Last administered on 14:00; Start 12/29/16 at 14:00; Stop 12/29/16 at 14:01; Status DC Sodium Chloride 500 ml @ 500 mls/hr 1X ONCE IV Last administered on 23:20; Start 12/29/16 at 23:30; Stop 12/30/16 at 00:29; Status DC Sodium Chloride 500 ml @ 500 mls/hr 1X ONCE IV Last administered on 00:05; Start 12/30/16 at 00:00; Stop 12/30/16 at 00:59; Status DC Sodium Chloride 1,000 ml @ 1,000 mls/hr Q1H PRN IV hypotension; Start 12/30/16 at 08:03; Stop 12/30/16 at 14:02; Status DC Albumin Human (Albuminar) 200 ml @ 200 mls/hr 1X PRN PRN IV Hypotension Last administered on 12/30/16 09:22; Start 12/30/16 at 08:15; Stop 12/30/16 at 14:14 ; Status DC Sodium Chloride (Normal Saline Flush) 10 ml 1X PRN PRN IV AP catheter pack; Start 12/30/16 at 08:15; Stop 12/31/16 at 08:14; Status DC Sodium Chloride (Normal Saline Flush) 10 ml 1X PRN PRN IV ARCHITECTURE MANAGER catheter pack; Start 12/30/16 at 08:15; Stop 12/31/16 at 08:14; Status DC Info (PHARMACY MONITORING -- do not chart) 1 each PRN DAILY PRN MC SEE COMMENTS ; Start 12/30/16 at 08:15 Info (PHARMACY MONITORING -- do not chart) 1 each PRN DAILY PRN MC SEE COMMENTS ; Start 12/30/16 at 08:15; Status UNV Paricalcitol (Zemplar) 5 mcg 3X/WEEK IV Last administered on 12/31/16 09:14; Start 12/31/16 at 09:00 Calcium Acetate 1334 mg 1,334 mg TIDWMEALS PO Last administered on 01/02/17 17 :41; Start 12/30/16 at 12:00 Albumin Human (Plasmanate) 500 ml @ 120 mls/hr Q4HRS IV Last administered on 16:45; Start 12/30/16 at 12:00; Stop 12/30/16 at 19:59; Status DC Ondansetron HCl (Zofran) 8 mg PRN Q6HRS PRN IV NAUSEA/VOMITING, 2ND CHOICE; Start 12/31/16 at 08:58 Lorazepam (Ativan) 0.5 mg PRN Q4HRS PRN IV ANXIETY / AGITATION Last administered on 01/01/17 09:43; Start 12/31/16 at 09:00 Prochlorperazine Edisylate (Compazine) 10 mg PRN Q6HRS PRN IM NAUSEA/VOMITING Last administered on 12/31/16 09:15; Start 12/31/16 at 09:00; Stop 01/01/17 at 11:48; Status DC Metoclopramide HCl 5 mg 5 mg PRN Q6HRS PRN IV NAUSEA/VOMITING, 1ST CHOICE Last administered on 01/01/17 09:42; Start 12/31/16 at 11:45 Magnesium Sulfate/ Dextrose 50 ml @ 25 mls/hr 1X ONCE IV Last administered on 12/31/16 17:54; Start 12/31/16 at 15:00; Stop 12/31/16 at 16:59; Status DC Albumin Human (Plasmanate) 500 ml @ 75 mls/hr Q6H40M IV Last administered on 03:44; Start 12/31/16 at 15:15; Stop 01/01/17 at 11:14; Status DC Prochlorperazine Edisylate (Compazine) 10 mg PRN Q6HRS PRN IV NAUSEA/VOMITING, 3RD CHOICE Last administered on 01/01/17 17:38; Start 01/01/17 at 11:45 Potassium Chloride (Klor-Con) 40 meq 1X ONCE PO Last administered on 13:02; Start 01/01/17 at 12:00; Stop 01/01/17 at 12:01; Status DC Furosemide (Lasix) 40 mg 1X ONCE IVP Last administered on 01/01/17 14:24; Start 01/01/17 at 14:00; Stop 01/01/17 at 14:01; Status DC Albuterol/ Ipratropium (Duoneb) 3 ml PRN Q6HRS PRN NEB SHORTNESS OF BREATH Last administered on 01/03/17 05:23; Start 01/01/17 at 13:45 Furosemide (Lasix) 40 mg 1X ONCE IVP Last administered on 01/02/17 11:43; Start 01/02/17 at 10:45; Stop 01/02/17 at 10:46; Status DC Potassium Chloride 40 meq 40 meq 1X ONCE PO Last administered on 01/02/17 13: 21; Start 01/02/17 at 13:15; Stop 01/02/17 at 13:16; Status DC Heparin Sodium/ Dextrose 500 ml @ 0 mls/hr CONT PRN IV SEE I/O RECORD Last administered on 01/02/17 17:43; Start 01/02/17 at 14:45 Heparin Sodium (Porcine) (Heparin Sodium) 3,150 unit PRN Q6HRS PRN IV FOR UFH LEVEL LESS THAN 0.2; Start 01/02/17 at 14:45 Heparin Sodium (Porcine) (Heparin Sodium) 1,550 unit PRN Q6HRS PRN IV FOR UFH LEVEL 0.2 - 0.29; Start 01/02/17 at 14:45 Warfarin Sodium (Coumadin Per Pharmacy) 1 each PRN DAILY PRN MC PER PROTOCOL Last administered on 01/02/17 15:55; Start 01/02/17 at 14:45 Warfarin Sodium (Coumadin) 5 mg 1X WARF ONCE PO Last administered on 17:41; Start 01/02/17 at 16:00; Stop 01/02/17 at 16:01; Status DC Active Scripts Active Reported Claritin (Loratadine) 10 Mg Tablet 1 Tab PO DAILY PRN Bactrim 400-80 Mg Tablet (Sulfamethoxazole/Trimethoprim) 1 Each Tablet 1 Tab PO BID Gabapentin 300 Mg Capsule 300 Mg PO TID Zestril (Lisinopril) 10 Mg Tablet 10 Mg PO DAILY Cyanocobalamin Injection (Cyanocobalamin (Vitamin B-12)) 1,000 Mcg/1 Ml Vial 1, 000 Mcg QMONTH Percocet 5-325 Mg Tablet (Oxycodone/Acetaminophen) 1 Each Tablet 1-2 Tab PO Q4- 6HRS Prilosec Otc (Omeprazole Magnesium) 20 Mg Tablet.dr 20 Mg PO DAILY Vitals/I & O Vital Sign - Last 24 Hours 01/02/17 01/02/17 01/02/17 01/02/17 11:00 14:12 15:00 19:55 Temp 97.6 97.8 98.3 97.6 97.8 98.3 Pulse 77 73 75 Resp 20 20 18 B/P 150/69 142/69 150/68 Pulse Ox 92 93 91 95 O2 Delivery Room Air Room Air Room Air Room Air 01/02/17 01/02/17 01/02/17 01/02/17 20:01 21:22 21:52 22:22 Resp 20 20 Pulse Ox 93 O2 Delivery Room Air Room Air Room Air Room Air 01/02/17 01/03/17 01/03/17 23:00 03:10 05:23 Temp 98.4 98.2 98.4 98.2 Pulse 83 77 Resp 16 18 B/P 130/54 140/61 Pulse Ox 93 93 93 O2 Delivery Room Air Room Air Room Air Intake and Output 01/02/17 01/02/17 01/03/17 14:59 22:59 06:59 Intake Total 100 ml 270 ml Output Total 2000 ml 420 ml Balance -1900 ml -150 ml LETICIA TREVINO MD Jan 03, 2017 08:51
[2017-01-03] MEDS: ONDANSETRON PF 4 MG/2 ML VIAL. IV PRN (08:59)
[2017-01-03] MEDS: GABAPENTIN 300 MG CAPSULE. PO SCH ×2 (09:06→21:29)
[2017-01-03] MEDS: CALCIUM ACETATE 667 MG CAPSULE PO SCH ×3 (09:06→17:35)
[2017-01-03] MEDS: PARICALCITOL 5 MCG/ML VIAL. IV SCH (09:06)
[2017-01-03] MEDS ORDERED: GABA-586 PO (09:16)
[2017-01-03] MEDS: HEPARIN 25,000UTS/500ML PREMIX 500 ML IV PRN (09:23)
--- NOTE | 2017-01-03 11:02 | PDOC ---
PROGRESS NOTES Chief Complaint Chief Complaint LE erythema Acute metabolic encephalopathy ASSESSMENT AND PLAN: 1. Cellulitis B LE vs Gemzar ASE: on empiric Abx as per ID service. appreciate Dr Connell's input as well. US LE 12/28 neg for DVT. 2. ARTURO: oliguric ATN/ Gap metabolic acidosis. 10/14 gemzar. appreciate nephrology help w/ management 3. Hyperkalemia, hypokalemia: replete as indicated. 4. Hypomagnesemia: resolved 5. Hypocalcemia. s/p IV calcium. twitching resolved 6. R UE DVT at IJ: heparin, no coumadin until plts >50K 7. Thrombocytopenia - plan platelet transfusion. 8. Cholangiocarcinoma STAGE 4: chemo currently on hold. F/U w/Dr Connell on O/P basis 9. Peripheral neuropathy: poss / chemo. on gabapentin, B12 10. Pancytopenia: / chemo 11. N/V, diarrhea with chemo: none here 12. GERD: on PPI 13. Hypoalbuminemia: due to malnutrition, malignancy. protein supplements History of Present Illness History of Present Illness feels ok, but very concerned about her leg edema. states she responded well to IV lasix (but with e.lyte derangements). appetite poor, but no nausea Vitals Vitals Vital Signs Date Time Temp Pulse Resp B/P Pulse Ox O2 Delivery O2 Flow Rate FiO2 01/03/17 07:00 97.8 78 16 148/62 93 Room Air 97.8 Physical Exam General: Alert, Oriented X3 Heart: Regular rate Lungs: Clear, Crackles, Other Abdomen: Normal bowel sounds, Soft, No tenderness Extremities: Other (2+ edema Bilateral LE unchanged. right upper EXT edema ) Skin: Other (erythema improving) Labs LABS Laboratory Tests Test 01/02/17 23:59 01/03/17 06:00 Heparin Anti-Xa Act, Unfractionated 0.36IU/mL (0.30-0.70) 0.52IU/mL (0.30-0.70) White Blood Count 3.4x10^3/uL (4.0-11.0) Red Blood Count 2.26x10^6/uL (3.50-5.40) Hemoglobin 7.6g/dL (12.0-15.5) Hematocrit 22.0% (36.0-47.0) Mean Corpuscular Volume 98fL (79-100) Mean Corpuscular Hemoglobin 34pg (25-35) Mean Corpuscular Hemoglobin Concent 35g/dL (31-37) Red Cell Distribution Width 23.7% (11.5-14.5) Platelet Count 18x10^3/uL (140-400) Neutrophils (%) (Auto) 72% (31-73) Lymphocytes (%) (Auto) 16% (24-48) Monocytes (%) (Auto) 12% (0-9) Eosinophils (%) (Auto) 0% (0-3) Basophils (%) (Auto) 0% (0-3) Neutrophils # (Auto) 2.5x10^3uL (1.8-7.7) Lymphocytes # (Auto) 0.5x10^3/uL (1.0-4.8) Monocytes # (Auto) 0.4x10^3/uL (0.0-1.1) Eosinophils # (Auto) 0.0x10^3/uL (0.0-0.7) Basophils # (Auto) 0.0x10^3/uL (0.0-0.2) Prothrombin Time 15.4SEC (11.7-14.0) Prothromb Time International Ratio 1.3 (0.8-1.1) Sodium Level 139mmol/L (136-145) Potassium Level 3.1mmol/L (3.5-5.1) Chloride Level 101mmol/L (98-107) Carbon Dioxide Level 28mmol/L (21-32) Anion Gap 10 (6-14) Blood Urea Nitrogen 27mg/dL (7-20) Creatinine 1.6mg/dL (0.6-1.0) Estimated GFR (Cockcroft-Gault) 32.2 Glucose Level 94mg/dL (70-99) Calcium Level 7.8mg/dL (8.5-10.1) Phosphorus Level 3.2mg/dL (2.6-4.7) Creatine Kinase 34U/L (26-192) Albumin 2.8g/dL (3.4-5.0) MARTY HUERTA MD Jan 03, 2017 11:02
--- NOTE | 2017-01-03 13:01 | PDOC ---
Infectious Disease Note Subjective Subjective improved ROS ROS GEN: Denies fevers, chills, sweats HEENT: Denies blurred vision, sore throat CV: Denies chest pain RESP: Denies shortness of air, cough GI: Denies n/v/d NEURO: Denies confusion, dizziness MSK: Denies weakness, joint pain/swelling Vital Sign Vital Signs Vital Signs Date Time Temp Pulse Resp B/P Pulse Ox O2 Delivery O2 Flow Rate FiO2 01/03/17 12:17 98.2 70 16 143/59 98.2 01/03/17 11:00 93 Room Air Physical Exam PHYSICAL EXAM GENERAL: Propped up in chair, relaxed appearance HEENT: OC/OP clear LUNGS: Clear HEART: S1S2, no gallop, no murmur ABD: Obese, BS present, soft, NT EXT: BLE edema little less, and medial petechial type rash, fading. A few scabs right posterior/lateral calf. Improved RUE swollen and warm. RP palpable MANAGER CHINESE: Alert, 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 clean [facility] clean Labs Lab Laboratory Tests Test 01/02/17 23:59 01/03/17 06:00 Heparin Anti-Xa Act, Unfractionated 0.36IU/mL (0.30-0.70) 0.52IU/mL (0.30-0.70) White Blood Count 3.4x10^3/uL (4.0-11.0) Red Blood Count 2.26x10^6/uL (3.50-5.40) Hemoglobin 7.6g/dL (12.0-15.5) Hematocrit 22.0% (36.0-47.0) Mean Corpuscular Volume 98fL (79-100) Mean Corpuscular Hemoglobin 34pg (25-35) Mean Corpuscular Hemoglobin Concent 35g/dL (31-37) Red Cell Distribution Width 23.7% (11.5-14.5) Platelet Count 18x10^3/uL (140-400) Neutrophils (%) (Auto) 72% (31-73) Lymphocytes (%) (Auto) 16% (24-48) Monocytes (%) (Auto) 12% (0-9) Eosinophils (%) (Auto) 0% (0-3) Basophils (%) (Auto) 0% (0-3) Neutrophils # (Auto) 2.5x10^3uL (1.8-7.7) Lymphocytes # (Auto) 0.5x10^3/uL (1.0-4.8) Monocytes # (Auto) 0.4x10^3/uL (0.0-1.1) Eosinophils # (Auto) 0.0x10^3/uL (0.0-0.7) Basophils # (Auto) 0.0x10^3/uL (0.0-0.2) Prothrombin Time 15.4SEC (11.7-14.0) Prothromb Time International Ratio 1.3 (0.8-1.1) Sodium Level 139mmol/L (136-145) Potassium Level 3.1mmol/L (3.5-5.1) Chloride Level 101mmol/L (98-107) Carbon Dioxide Level 28mmol/L (21-32) Anion Gap 10 (6-14) Blood Urea Nitrogen 27mg/dL (7-20) Creatinine 1.6mg/dL (0.6-1.0) Estimated GFR (Cockcroft-Gault) 32.2 Glucose Level 94mg/dL (70-99) Calcium Level 7.8mg/dL (8.5-10.1) Phosphorus Level 3.2mg/dL (2.6-4.7) Creatine Kinase 34U/L (26-192) Albumin 2.8g/dL (3.4-5.0) Objective Assessment RUE DVT Right LE cellulitis - better ARTURO and electrolyte abnormalities - better s/p HD Pancytopenia - too early for abx to be involved mild encephalopathy - improved but twitch continues? electrolyte disturbance, ? 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
[2017-01-03] MEDS ORDERED: POTASSIUM CHLORIDE 20 MEQ TABLET.ER. PO ONE (18:45)
[2017-01-03] MEDS: IV NORMAL SALINE 1000ML BAG 1,000 ML IV SCH (18:55)
[2017-01-03] MEDS: CEFPODOXIME PROXETIL 100 MG TABLET. PO SCH (21:29)
--- NOTE | 2017-01-03 23:44 | PDOC ---
Provider Note Provider Note RENAL F/U: IRINADERI. S : No new c/o O : Alert. VSS. Afebrile. Somnolent. Neck : Supple Lungs : Decreased bases CVS : RRR Abd: Soft, benign in appearance. Portly Ext: Stable edema Neuro : Grossly intact. A/P: ARF CHOLINGIOCARCINOMA ANEMIA DEHYDRATION. Cr better No HD today CPM. Labs. . MELVIN POE MD Jan 03, 2017 23:44
[2017-01-04] MEDS: HEPARIN 25,000UTS/500ML PREMIX 500 ML IV PRN ×2 (00:07→16:10)
[2017-01-04] MEDS: IPRATRPIUM/ALBUTEROL 0.5/2.5MG 3 ML NEBU. NEB PRN ×2 (00:35→20:59)
[2017-01-04 03:19] VITALS: BP 133/56
[2017-01-04] MEDS: ACETAMINOPHEN 325 MG TABLET. PO PRN (04:09)
[2017-01-04 05:57] LABS: HEMATOCRIT 21.6 % (36.0-47.0); HEMOGLOBIN 7.4 g/dL (12.0-15.5); RED BLOOD COUNT 2.19 x10^6/uL (3.50-5.40); RED CELL DISTRIBUTION WIDTH 24.4 % (11.5-14.5); WHITE BLOOD COUNT 3.9 x10^3/uL (4.0-11.0)
[2017-01-04 06:11] LABS: INR 1.2 (0.8-1.1); PROTHROMBIN TIME PATIENT 14.3 SEC (11.7-14.0)
[2017-01-04 06:20] LABS: ALBUMIN 2.7 g/dL (3.4-5.0); ALBUMIN/GLOBULIN RATIO 1.1 (1.0-1.7); CALCIUM 7.9 mg/dL (8.5-10.1); CREATININE 1.3 mg/dL (0.6-1.0); GFR 40.9; POTASSIUM 3.2 mmol/L (3.5-5.1); TOTAL BILIRUBIN 0.8 mg/dL (0.2-1.0); TOTAL PROTEIN 5.2 g/dL (6.4-8.2)
[2017-01-04 07:15] VITALS: BP 135/71
[2017-01-04] MEDS ORDERED: CYANOCOBALAMIN (VITAMIN B-12) 1,000 MCG/ML VIAL IM SCH (09:00)
--- NOTE | 2017-01-04 09:00 | PDOC ---
PROGRESS NOTES Subjective Subjective c/c - f/u of cholangiocarcinoma ROS - Pt and concerned about persistent edema. Objective Objective Vital Signs Date Time Temp Pulse Resp B/P Pulse Ox O2 Delivery O2 Flow Rate FiO2 01/04/17 07:15 98.2 71 20 135/71 95 Room Air 98.2 Intake and Output 01/04/17 07:00 Intake Total 568 ml Output Total 1550 ml Balance -982 ml Intake Oral 218 ml Blood Product IV Normal Saline Flush 350 ml Output Urine Total 1550 ml Physical Exam Heart: Normal S1, Normal S2 General: Alert, Oriented X3 Lungs: Clear to auscultation Neuro: Normal speech Psych/Mental Status: Mental status NL Assessment Assessment Problems Medical Problems: (1) Cellulitis Status: Acute IMPRESSION AND PLAN: 1. Cholangiocarcinoma stage 4. She is on chemotherapy with Gemzar and Xeloda, her last treatment was given on 12/24/2016. I will hold further chemotherapy in view of cellulitis and renal failure and she will follow up with me upon discharge. I will also plan for a PET scan as outpatient. I agree that she has likely gemzar related toxicities with ARF and edema. 2. Acute renal failure, management per Dr. Kerr. Pt and concerned about persistent edema. 3. Hypocalcemia. s/p IV calcium. 4. Hypoalbuminemia due to malnutrition from malignancy. 5. Cellulitis. I discussed with Dr. Óscar Thacker. She was started on antibiotics for cellulitis of bilateral lower extremities. She had a venous Doppler of bilateral lower extremities on 12/28/2016 that is negative for DVT. 6. Twitching - resolved. 7. Recurrent LE edema, rash. At [facility] last week was thought to be c/w gemzar- related LE swelling/ capillary leak causing erythema, no signs infxn. Improved with abx. 8. DVT - RUE 01/02/17 - agree with IV heparin, hold warfarin till platelets >50 for three consecutive days. 9. Thrombocytopenia - s/p platelet transfusion 01/04/17. Comment Review of Relevant I have reviewed the following items ketty (where applicable) has been applied. Labs Laboratory Tests Test 01/02/17 23:59 01/03/17 06:00 01/04/17 05:40 Heparin Anti-Xa Act, Unfractionated 0.36IU/mL (0.30-0.70) 0.52IU/mL (0.30-0.70) 0.61IU/mL (0.30-0.70) White Blood Count 3.4x10^3/uL (4.0-11.0) 3.9x10^3/uL (4.0-11.0) Red Blood Count 2.26x10^6/uL (3.50-5.40) 2.19x10^6/uL (3.50-5.40) Hemoglobin 7.6g/dL (12.0-15.5) 7.4g/dL (12.0-15.5) Hematocrit 22.0% (36.0-47.0) 21.6% (36.0-47.0) Mean Corpuscular Volume 98fL (79-100) 98fL (79-100) Mean Corpuscular Hemoglobin 34pg (25-35) 34pg (25-35) Mean Corpuscular Hemoglobin Concent 35g/dL (31-37) 34g/dL (31-37) Red Cell Distribution Width 23.7% (11.5-14.5) 24.4% (11.5-14.5) Platelet Count 18x10^3/uL (140-400) 51x10^3/uL (140-400) Neutrophils (%) (Auto) 72% (31-73) Lymphocytes (%) (Auto) 16% (24-48) Monocytes (%) (Auto) 12% (0-9) Eosinophils (%) (Auto) 0% (0-3) Basophils (%) (Auto) 0% (0-3) Neutrophils # (Auto) 2.5x10^3uL (1.8-7.7) Lymphocytes # (Auto) 0.5x10^3/uL (1.0-4.8) Monocytes # (Auto) 0.4x10^3/uL (0.0-1.1) Eosinophils # (Auto) 0.0x10^3/uL (0.0-0.7) Basophils # (Auto) 0.0x10^3/uL (0.0-0.2) Prothrombin Time 15.4SEC (11.7-14.0) 14.3SEC (11.7-14.0) Prothromb Time International Ratio 1.3 (0.8-1.1) 1.2 (0.8-1.1) Sodium Level 139mmol/L (136-145) 140mmol/L (136-145) Potassium Level 3.1mmol/L (3.5-5.1) 3.2mmol/L (3.5-5.1) Chloride Level 101mmol/L (98-107) 103mmol/L (98-107) Carbon Dioxide Level 28mmol/L (21-32) 30mmol/L (21-32) Anion Gap 10 (6-14) 7 (6-14) Blood Urea Nitrogen 27mg/dL (7-20) 21mg/dL (7-20) Creatinine 1.6mg/dL (0.6-1.0) 1.3mg/dL (0.6-1.0) Estimated GFR (Cockcroft-Gault) 32.2 40.9 Glucose Level 94mg/dL (70-99) 98mg/dL (70-99) Calcium Level 7.8mg/dL (8.5-10.1) 7.9mg/dL (8.5-10.1) Phosphorus Level 3.2mg/dL (2.6-4.7) Creatine Kinase 34U/L (26-192) 32U/L (26-192) Albumin 2.8g/dL (3.4-5.0) 2.7g/dL (3.4-5.0) BUN/Creatinine Ratio 16 (6-20) Magnesium Level 1.6mg/dL (1.8-2.4) Total Bilirubin 0.8mg/dL (0.2-1.0) Aspartate Amino Transf (AST/SGOT) 72U/L (15-37) Alanine Aminotransferase (ALT/SGPT) 48U/L (14-59) Alkaline Phosphatase 147U/L (46-116) Total Protein 5.2g/dL (6.4-8.2) Albumin/Globulin Ratio 1.1 (1.0-1.7) Laboratory Tests Test 01/04/17 05:40 White Blood Count 3.9x10^3/uL (4.0-11.0) Red Blood Count 2.19x10^6/uL (3.50-5.40) Hemoglobin 7.4g/dL (12.0-15.5) Hematocrit 21.6% (36.0-47.0) Mean Corpuscular Volume 98fL (79-100) Mean Corpuscular Hemoglobin 34pg (25-35) Mean Corpuscular Hemoglobin Concent 34g/dL (31-37) Red Cell Distribution Width 24.4% (11.5-14.5) Platelet Count 51x10^3/uL (140-400) Prothrombin Time 14.3SEC (11.7-14.0) Prothromb Time International Ratio 1.2 (0.8-1.1) Heparin Anti-Xa Act, Unfractionated 0.61IU/mL (0.30-0.70) Sodium Level 140mmol/L (136-145) Potassium Level 3.2mmol/L (3.5-5.1) Chloride Level 103mmol/L (98-107) Carbon Dioxide Level 30mmol/L (21-32) Anion Gap 7 (6-14) Blood Urea Nitrogen 21mg/dL (7-20) Creatinine 1.3mg/dL (0.6-1.0) Estimated GFR (Cockcroft-Gault) 40.9 BUN/Creatinine Ratio 16 (6-20) Glucose Level 98mg/dL (70-99) Calcium Level 7.9mg/dL (8.5-10.1) Magnesium Level 1.6mg/dL (1.8-2.4) Total Bilirubin 0.8mg/dL (0.2-1.0) Aspartate Amino Transf (AST/SGOT) 72U/L (15-37) Alanine Aminotransferase (ALT/SGPT) 48U/L (14-59) Alkaline Phosphatase 147U/L (46-116) Creatine Kinase 32U/L (26-192) Total Protein 5.2g/dL (6.4-8.2) Albumin 2.7g/dL (3.4-5.0) Albumin/Globulin Ratio 1.1 (1.0-1.7) Microbiology 12/27/16 Blood Culture - Final, Complete NO GROWTH AFTER 5 DAYS 12/31/16 Urine Culture - Final, Complete 12/31/16 Urine Culture Result 1 (MANE) - Final, Complete Medications Current Medications Acetaminophen (Tylenol) 650 mg 1X ONCE PO Last administered on 12/27/16 09:11 ; Start 12/27/16 at 08:15; Stop 12/27/16 at 08:22; Status DC Diphenhydramine HCl (Benadryl) 25 mg 1X ONCE PO Last administered on 09:12; Start 12/27/16 at 08:15; Stop 12/27/16 at 08:22; Status DC Furosemide (Lasix) 20 mg 1X ONCE IVP ; Start 12/27/16 at 08:15; Stop 12/27/16 at 08:22; Status DC Fentanyl Citrate (Fentanyl 2ml Vial) 25 mcg PRN QID PRN IV PAIN; Start at 16:45; Stop 12/29/16 at 21:00; Status DC Lisinopril (Prinivil) 10 mg DAILY PO ; Start 12/28/16 at 09:00; Stop 12/28/16 at 09:00; Status DC Oxycodone/ Acetaminophen (Percocet 5/325) 1 tab Q4HRS PRN PO MILD/MODERATE PAIN Last administered on 01/01/17 17:44; Start 12/27/16 at 16:45 Gabapentin (Neurontin) 300 mg TID PO Last administered on 12/28/16 10:44; Start 12/27/16 at 21:00; Stop 12/28/16 at 15:23; Status DC Cetirizine HCl (Zyrtec) 10 mg PRN DAILY PRN PO ALLERGIES; Start 12/28/16 at 09: 00 Pantoprazole Sodium (Protonix) 40 mg DAILYAC PO Last administered on 01/03/17 03:36; Start 12/28/16 at 07:30 Oxycodone/ Acetaminophen 2 tab 2 tab Q4HRS PRN PO SEVERE PAIN Last administered on 01/02/17 21:22; Start 12/27/16 at 16:45 Sodium Chloride (Iv Sodium Chloride 0.9% 1000ml Bag) 1,000 ml @ 75 mls/hr [id number] IV Last administered on 12/28/16 07:12; Start 12/27/16 at 17:30; Stop 12/28/16 at 08:15; Status DC Piperacillin Sod/ Tazobactam Sod (Zosyn Per Pharmacy) 1 each PRN DAILY PRN MC SEE COMMENTS; Start 12/27/16 at 17:30; Stop 12/28/16 at 07:27; Status DC Vancomycin HCl 1 each 1 each PRN DAILY PRN MC SEE COMMENTS Last administered on 12/27/16 18:45; Start 12/27/16 at 17:30; Stop 12/27/16 at 18:51; Status DC Vancomycin HCl 2 gm/Sodium Chloride 500 ml @ 250 mls/hr 1X ONCE IV ; Start at 17:45; Stop 12/27/16 at 18:51; Status DC Piperacillin Sod/ Tazobactam Sod 3.375 gm/Sodium Chloride 50 ml @ 100 mls/hr 1X ONCE IV Last administered on 12/27/16 18:07; Start 12/27/16 at 18:00; Stop 12/27/16 at 18:29; Status DC Piperacillin Sod/ Tazobactam Sod 2.25 gm/Sodium Chloride 50 ml @ 100 mls/hr Q6HRS IV Last administered on 12/28/16 06:08; Start 12/28/16 at 00:00; Stop at 07:31; Status DC Vancomycin HCl 1.5 gm/Sodium Chloride 500 ml @ 250 mls/hr Q48H IV ; Start 12/29 at 20:00; Stop 12/29/16 at 20:00; Status DC Micafungin Sodium 100 mg/Dextrose 100 ml @ 100 mls/hr Q24H IV Last administered on 12/31/16 09:13; Start 12/28/16 at 08:00; Stop 12/31/16 at 10:43 ; Status DC Linezolid 300 ml @ 300 mls/hr Q12HR IV Last administered on 12/31/16 09:13; Start 12/28/16 at 09:00; Stop 12/31/16 at 10:43; Status DC Piperacillin Sod/ Tazobactam Sod 2.25 gm/Sodium Chloride 50 ml @ 100 mls/hr Q8HRS IV Last administered on 01/03/17 06:04; Start 12/28/16 at 14:00; Stop at 13:01; Status DC Calcium Chloride 2000 mg/Sodium Chloride 120 ml @ 240 mls/hr 1X ONCE IV Last administered on 12/28/16 08:54; Start 12/28/16 at 08:00; Stop 12/28/16 at 08:29 ; Status DC Magnesium Sulfate/ Dextrose (Magnesium Sulfate PREMIX 2GM) 50 ml @ 25 mls/hr PRN DAILY PRN IV for Mag < 1.7 on am labs Last administered on 12/29/16 22:56 ; Start 12/28/16 at 08:15 Sodium Bicarbonate 50 meq 50 meq Q2H IV Last administered on 12/28/16 15:33; Start 12/28/16 at 08:30; Stop 12/28/16 at 10:31; Status DC Sodium Chloride 500 ml @ 0 mls/hr PRN QID PRN IV UO< 30cc/hr over previous 6hrs ; Start 12/28/16 at 08:15; Stop 01/03/17 at 18:34; Status DC Sodium Bicarbonate/ Dextrose 1,150 ml @ 100 mls/hr [id number] IV Last administered on 12/30/16 06:08; Start 12/28/16 at 09:00; Stop 12/30/16 at 08:59 ; Status DC Heparin Sodium (Porcine) (Heparin Sodium) 10,000 unit STK-MED ONCE .ROUTE ; Start 12/28/16 at 08:46; Stop 12/28/16 at 08:47; Status DC Lidocaine/Sodium Bicarbonate 20 ml 20 ml STK-MED ONCE IJ ; Start 12/28/16 at 08: 47; Stop 12/28/16 at 08:48; Status DC Heparin Sodium/ Sodium Chloride 500 ml @ As Directed STK-MED ONCE .ROUTE ; Start 12/28/16 at 08:47; Stop 12/28/16 at 08:48; Status DC Lidocaine/Sodium Bicarbonate (Buffered Lidocaine 1%) 3 ml 1X ONCE IJ Last administered on 12/28/16 10:10; Start 12/28/16 at 09:00; Stop 12/28/16 at 09:01 ; Status DC Heparin Sodium/ Sodium Chloride 60 unit 1X ONCE IV Last administered on 10:11; Start 12/28/16 at 09:00; Stop 12/28/16 at 09:01; Status DC Heparin Sodium (Porcine) (Heparin Sodium) 2,500 unit 1X ONCE INT CAT Last administered on 12/28/16 10:10; Start 12/28/16 at 09:00; Stop 12/28/16 at 09:01 ; Status DC Midazolam HCl (Versed) 2 mg STK-MED ONCE .ROUTE ; Start 12/28/16 at 09:41; Stop 12/28/16 at 09:42; Status DC Saliva Substitute (Biotene Moisturizing Mouth) 2 spray PRN Q15MIN PRN PO DRY MOUTH Last administered on 12/31/16 17:53; Start 12/28/16 at 13:15 Gabapentin (Neurontin) 300 mg DAILY PO Last administered on 01/03/17 09:06; Start 12/29/16 at 09:00; Stop 01/03/17 at 18:21; Status DC Acetaminophen (Tylenol) 650 mg PRN Q6HRS PRN PO MILD PAIN Last administered on 01/04/17 04:09; Start 12/28/16 at 18:15 Ondansetron HCl (Zofran) 4 mg PRN Q6HRS PRN IV NAUSEA/VOMITING Last administered on 12/29/16 11:10; Start 12/29/16 at 10:45; Stop 12/29/16 at 13:53 ; Status DC Ondansetron HCl (Zofran) 8 mg PRN Q8HRS PRN IV NAUSEA/VOMITING Last administered on 12/31/16 03:35; Start 12/29/16 at 14:00; Stop 12/31/16 at 09:03 ; Status DC Prochlorperazine Edisylate 10 mg 10 mg 1X ONCE IV Last administered on 14:00; Start 12/29/16 at 14:00; Stop 12/29/16 at 14:01; Status DC Sodium Chloride 500 ml @ 500 mls/hr 1X ONCE IV Last administered on 23:20; Start 12/29/16 at 23:30; Stop 12/30/16 at 00:29; Status DC Sodium Chloride 500 ml @ 500 mls/hr 1X ONCE IV Last administered on 00:05; Start 12/30/16 at 00:00; Stop 12/30/16 at 00:59; Status DC Sodium Chloride 1,000 ml @ 1,000 mls/hr Q1H PRN IV hypotension; Start 12/30/16 at 08:03; Stop 12/30/16 at 14:02; Status DC Albumin Human (Albuminar) 200 ml @ 200 mls/hr 1X PRN PRN IV Hypotension Last administered on 12/30/16 09:22; Start 12/30/16 at 08:15; Stop 12/30/16 at 14:14 ; Status DC Sodium Chloride (Normal Saline Flush) 10 ml 1X PRN PRN IV AP catheter pack; Start 12/30/16 at 08:15; Stop 12/31/16 at 08:14; Status DC Sodium Chloride (Normal Saline Flush) 10 ml 1X PRN PRN IV 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; Start 12/30/16 at 08:15; Stop 12/31/16 at 08:14; Status DC Info (PHARMACY MONITORING -- do not chart) 1 each PRN DAILY PRN MC SEE COMMENTS ; Start 12/30/16 at 08:15 Info (PHARMACY MONITORING -- do not chart) 1 each PRN DAILY PRN MC SEE COMMENTS ; Start 12/30/16 at 08:15; Status UNV Paricalcitol (Zemplar) 5 mcg 3X/WEEK IV Last administered on 01/03/17 09:06; Start 12/31/16 at 09:00 Calcium Acetate 1334 mg 1,334 mg TIDWMEALS PO Last administered on 01/03/17 17 :35; Start 12/30/16 at 12:00 Albumin Human (Plasmanate) 500 ml @ 120 mls/hr Q4HRS IV Last administered on 16:45; Start 12/30/16 at 12:00; Stop 12/30/16 at 19:59; Status DC Ondansetron HCl (Zofran) 8 mg PRN Q6HRS PRN IV NAUSEA/VOMITING, 2ND CHOICE Last administered on 01/03/17 08:59; Start 12/31/16 at 08:58 Lorazepam (Ativan) 0.5 mg PRN Q4HRS PRN IV ANXIETY / AGITATION Last administered on 01/01/17 09:43; Start 12/31/16 at 09:00 Prochlorperazine Edisylate (Compazine) 10 mg PRN Q6HRS PRN IM NAUSEA/VOMITING Last administered on 12/31/16 09:15; Start 12/31/16 at 09:00; Stop 01/01/17 at 11:48; Status DC Metoclopramide HCl 5 mg 5 mg PRN Q6HRS PRN IV NAUSEA/VOMITING, 1ST CHOICE Last administered on 01/01/17 09:42; Start 12/31/16 at 11:45 Magnesium Sulfate/ Dextrose 50 ml @ 25 mls/hr 1X ONCE IV Last administered on 12/31/16 17:54; Start 12/31/16 at 15:00; Stop 12/31/16 at 16:59; Status DC Albumin Human (Plasmanate) 500 ml @ 75 mls/hr Q6H40M IV Last administered on 03:44; Start 12/31/16 at 15:15; Stop 01/01/17 at 11:14; Status DC Prochlorperazine Edisylate (Compazine) 10 mg PRN Q6HRS PRN IV NAUSEA/VOMITING, 3RD CHOICE Last administered on 01/01/17 17:38; Start 01/01/17 at 11:45 Potassium Chloride (Klor-Con) 40 meq 1X ONCE PO Last administered on 13:02; Start 01/01/17 at 12:00; Stop 01/01/17 at 12:01; Status DC Furosemide (Lasix) 40 mg 1X ONCE IVP Last administered on 01/01/17 14:24; Start 01/01/17 at 14:00; Stop 01/01/17 at 14:01; Status DC Albuterol/ Ipratropium (Duoneb) 3 ml PRN Q6HRS PRN NEB SHORTNESS OF BREATH Last administered on 01/04/17 00:35; Start 01/01/17 at 13:45 Furosemide (Lasix) 40 mg 1X ONCE IVP Last administered on 01/02/17 11:43; Start 01/02/17 at 10:45; Stop 01/02/17 at 10:46; Status DC Potassium Chloride 40 meq 40 meq 1X ONCE PO Last administered on 01/02/17 13: 21; Start 01/02/17 at 13:15; Stop 01/02/17 at 13:16; Status DC Heparin Sodium/ Dextrose 500 ml @ 0 mls/hr CONT PRN IV SEE I/O RECORD Last administered on 01/04/17 00:07; Start 01/02/17 at 14:45 Heparin Sodium (Porcine) (Heparin Sodium) 3,150 unit PRN Q6HRS PRN IV FOR UFH LEVEL LESS THAN 0.2; Start 01/02/17 at 14:45 Heparin Sodium (Porcine) (Heparin Sodium) 1,550 unit PRN Q6HRS PRN IV FOR UFH LEVEL 0.2 - 0.29; Start 01/02/17 at 14:45 Warfarin Sodium (Coumadin Per Pharmacy) 1 each PRN DAILY PRN MC PER PROTOCOL Last administered on 01/03/17 11:34; Start 01/02/17 at 14:45; Stop 01/03/17 at 23:01; Status DC Warfarin Sodium (Coumadin) 5 mg 1X WARF ONCE PO Last administered on 17:41; Start 01/02/17 at 16:00; Stop 01/02/17 at 16:01; Status DC Warfarin Sodium (Coumadin - No Dose Today) 1 each 1X WARF ONCE MC ; Start 01/03 at 16:00; Stop 01/03/17 at 23:01; Status DC Cefpodoxime Proxetil (Vantin) 200 mg BID PO Last administered on 01/03/17 21: 29; Start 01/03/17 at 21:00 Cyanocobalamin (Vitamin B-12) 1,000 mcg QMONTH IM ; Start 01/04/17 at 09:00 Gabapentin 900 mg 900 mg TID PO Last administered on 01/03/17 21:29; Start at 21:00 Sodium Chloride (Iv Sodium Chloride 0.9% 1000ml Bag) 1,000 ml @ 75 mls/hr [id number] IV Last administered on 01/03/17 18:55; Start 01/03/17 at 18:45 Potassium Chloride (Klor-Con) 20 meq 1X ONCE PO Last administered on 18:56; Start 01/03/17 at 18:45; Stop 01/03/17 at 18:46; Status DC Active Scripts Active Reported Gabapentin 300 Mg Capsule 900 Mg PO TID Claritin (Loratadine) 10 Mg Tablet 1 Tab PO DAILY PRN Bactrim 400-80 Mg Tablet (Sulfamethoxazole/Trimethoprim) 1 Each Tablet 1 Tab PO BID Gabapentin 300 Mg Capsule 300 Mg PO TID Zestril (Lisinopril) 10 Mg Tablet 10 Mg PO DAILY Cyanocobalamin Injection (Cyanocobalamin (Vitamin B-12)) 1,000 Mcg/1 Ml Vial 1, 000 Mcg QMONTH Percocet 5-325 Mg Tablet (Oxycodone/Acetaminophen) 1 Each Tablet 1-2 Tab PO Q4- 6HRS Prilosec Otc (Omeprazole Magnesium) 20 Mg Tablet.dr 20 Mg PO DAILY Vitals/I & O Vital Sign - Last 24 Hours 01/03/17 01/03/17 01/03/17 01/03/17 11:00 12:00 12:17 15:00 Temp 98.0 98.0 98.2 98.0 98.0 98.0 98.2 98.0 Pulse 74 74 70 73 Resp 16 16 16 16 B/P 145/70 145/70 143/59 156/76 Pulse Ox 93 92 O2 Delivery Room Air Room Air 01/03/17 01/03/17 01/03/17 01/03/17 15:11 19:00 20:00 23:34 Temp 98.0 98.3 98.3 98.0 98.3 98.3 Pulse 73 71 82 Resp 16 18 18 B/P 156/76 154/63 144/68 Pulse Ox 92 90 O2 Delivery Room Air Room Air Room Air 01/04/17 01/04/17 01/04/17 00:35 03:19 07:15 Temp 97.7 98.2 97.7 98.2 Pulse 78 71 Resp 18 20 B/P 133/56 135/71 Pulse Ox 91 95 O2 Delivery Room Air Room Air Room Air Intake and Output 01/03/17 01/03/17 01/04/17 15:00 23:00 07:00 Intake Total 100 ml 250 ml 218 ml Output Total 700 ml 850 ml Balance 100 ml -450 ml -632 ml LETICIA TREVINO MD Jan 04, 2017 09:00
--- NOTE | 2017-01-04 09:26 | PDOC ---
Infectious Disease Note Subjective Subjective improved Still too much fluid ROS ROS GEN: Denies fevers, chills, sweats HEENT: Denies blurred vision, sore throat CV: Denies chest pain RESP: Denies shortness of air, cough GI: Denies n/v/d NEURO: Denies confusion, dizziness MSK: Denies weakness, joint pain/swelling Vital Sign Vital Signs Vital Signs Date Time Temp Pulse Resp B/P Pulse Ox O2 Delivery O2 Flow Rate FiO2 01/04/17 07:15 98.2 71 20 135/71 95 Room Air 98.2 Physical Exam PHYSICAL EXAM GENERAL: Propped up in bed relaxed appearance HEENT: OC/OP clear LUNGS: Clear HEART: S1S2, no gallop, no murmur ABD: Obese, BS present, soft, NT EXT: BLE edema little less. some wrinkling and flaking, and medial petechial type rash, fading. A few scabs right posterior/lateral calf. Improved RUE swollen and warm. 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 clean [facility] clean Labs Lab Laboratory Tests Test 01/04/17 05:40 White Blood Count 3.9x10^3/uL (4.0-11.0) Red Blood Count 2.19x10^6/uL (3.50-5.40) Hemoglobin 7.4g/dL (12.0-15.5) Hematocrit 21.6% (36.0-47.0) Mean Corpuscular Volume 98fL (79-100) Mean Corpuscular Hemoglobin 34pg (25-35) Mean Corpuscular Hemoglobin Concent 34g/dL (31-37) Red Cell Distribution Width 24.4% (11.5-14.5) Platelet Count 51x10^3/uL (140-400) Prothrombin Time 14.3SEC (11.7-14.0) Prothromb Time International Ratio 1.2 (0.8-1.1) Heparin Anti-Xa Act, Unfractionated 0.61IU/mL (0.30-0.70) Sodium Level 140mmol/L (136-145) Potassium Level 3.2mmol/L (3.5-5.1) Chloride Level 103mmol/L (98-107) Carbon Dioxide Level 30mmol/L (21-32) Anion Gap 7 (6-14) Blood Urea Nitrogen 21mg/dL (7-20) Creatinine 1.3mg/dL (0.6-1.0) Estimated GFR (Cockcroft-Gault) 40.9 BUN/Creatinine Ratio 16 (6-20) Glucose Level 98mg/dL (70-99) Calcium Level 7.9mg/dL (8.5-10.1) Magnesium Level 1.6mg/dL (1.8-2.4) Total Bilirubin 0.8mg/dL (0.2-1.0) Aspartate Amino Transf (AST/SGOT) 72U/L (15-37) Alanine Aminotransferase (ALT/SGPT) 48U/L (14-59) Alkaline Phosphatase 147U/L (46-116) Creatine Kinase 32U/L (26-192) Total Protein 5.2g/dL (6.4-8.2) Albumin 2.7g/dL (3.4-5.0) Albumin/Globulin Ratio 1.1 (1.0-1.7) Objective Assessment RUE DVT Right LE cellulitis - better ARTURO and electrolyte abnormalities - better s/p HD Pancytopenia - mild encephalopathy - improved but twitch continues? electrolyte disturbance, ? met Cholangiocarcinoma s/p chemo 12/24 Plan Plan of Care Cont Cefpodoxime for another day or so Lymphedema eval D/w D/w RAHEEM Medrano MD Jan 04, 2017 09:26
[2017-01-04] MEDS: PANTOPRAZOLE 40 MG TABLET.DR. PO SCH (09:46)
[2017-01-04] MEDS: GABAPENTIN 300 MG CAPSULE. PO SCH ×3 (09:46→20:33)
[2017-01-04] MEDS: CALCIUM ACETATE 667 MG CAPSULE PO SCH (09:46)
[2017-01-04] MEDS: CEFPODOXIME PROXETIL 100 MG TABLET. PO SCH ×2 (09:46→20:33)
[2017-01-04] MEDS: IV NORMAL SALINE 1000ML BAG 1,000 ML IV SCH (09:46)
[2017-01-04] MEDS: MAGNESIUM SULFATE 2GM 50 ML IV PRN (09:50)
--- NOTE | 2017-01-04 10:04 | PDOC ---
PROGRESS NOTES Chief Complaint Chief Complaint LE erythema Acute metabolic encephalopathy ASSESSMENT AND PLAN: 1. Cellulitis B LE vs Gemzar/hypoalbuminemia ASE: on empiric Abx as per ID service. US LE 12/28 neg for DVT. 2. ARTURO: oliguric ATN/ Gap metabolic acidosis. 2/2 gemzar. appreciate nephrology help w/ management 3. LE edema, bilat: suspect due to hypoalbuminemia, renal issues. d/w Dr Kerr: trial of lasix with IV albumin 4. Hyperkalemia, hypokalemia: replete as indicated. 5. Hypomagnesemia: resolved 6. Hypocalcemia. s/p IV calcium. twitching resolved 7. R UE DVT at IJ: heparin, no coumadin until plts >50K 8. Thrombocytopenia - plan platelet transfusion. 9. Cholangiocarcinoma STAGE 4: chemo currently on hold. F/U w/Dr Connell on O/P basis 10. Peripheral neuropathy: poss 2/2 chemo. on gabapentin, B12 11. Pancytopenia: /2 chemo 12. N/V, diarrhea with chemo: none here 13. GERD: on PPI 14. Hypoalbuminemia: due to malnutrition, malignancy. protein supplements History of Present Illness History of Present Illness is good spirits, no GI c/o, but still concerned about leg swelling Vitals Vitals Vital Signs Date Time Temp Pulse Resp B/P Pulse Ox O2 Delivery O2 Flow Rate FiO2 01/04/17 07:15 98.2 71 20 135/71 95 Room Air 98.2 Physical Exam General: Alert, Oriented X3 Heart: Normal S1, Normal S2 Lungs: Clear, Crackles, Other Abdomen: Normal bowel sounds, Soft, No tenderness Extremities: Other (2+ edema Bilateral LE unchanged. right upper EXT edema ) Skin: Other (erythema improving) Labs LABS Laboratory Tests Test 01/04/17 05:40 White Blood Count 3.9x10^3/uL (4.0-11.0) Red Blood Count 2.19x10^6/uL (3.50-5.40) Hemoglobin 7.4g/dL (12.0-15.5) Hematocrit 21.6% (36.0-47.0) Mean Corpuscular Volume 98fL (79-100) Mean Corpuscular Hemoglobin 34pg (25-35) Mean Corpuscular Hemoglobin Concent 34g/dL (31-37) Red Cell Distribution Width 24.4% (11.5-14.5) Platelet Count 51x10^3/uL (140-400) Prothrombin Time 14.3SEC (11.7-14.0) Prothromb Time International Ratio 1.2 (0.8-1.1) Heparin Anti-Xa Act, Unfractionated 0.61IU/mL (0.30-0.70) Sodium Level 140mmol/L (136-145) Potassium Level 3.2mmol/L (3.5-5.1) Chloride Level 103mmol/L (98-107) Carbon Dioxide Level 30mmol/L (21-32) Anion Gap 7 (6-14) Blood Urea Nitrogen 21mg/dL (7-20) Creatinine 1.3mg/dL (0.6-1.0) Estimated GFR (Cockcroft-Gault) 40.9 BUN/Creatinine Ratio 16 (6-20) Glucose Level 98mg/dL (70-99) Calcium Level 7.9mg/dL (8.5-10.1) Magnesium Level 1.6mg/dL (1.8-2.4) Total Bilirubin 0.8mg/dL (0.2-1.0) Aspartate Amino Transf (AST/SGOT) 72U/L (15-37) Alanine Aminotransferase (ALT/SGPT) 48U/L (14-59) Alkaline Phosphatase 147U/L (46-116) Creatine Kinase 32U/L (26-192) Total Protein 5.2g/dL (6.4-8.2) Albumin 2.7g/dL (3.4-5.0) Albumin/Globulin Ratio 1.1 (1.0-1.7) MARTY HUERTA MD Jan 04, 2017 10:04
[2017-01-04] MEDS ORDERED: POTASSIUM CHLORIDE 20MEQ 50 ML IV PRN (10:45)
[2017-01-04] MEDS ORDERED: MAGNESIUM SULFATE 2GM 50 ML IV PRN (10:45)
[2017-01-04 10:55] LABS: BASO % 0 % (0-3); EOS % 0 % (0-3); HEMATOCRIT 21.3 % (36.0-47.0); HEMOGLOBIN 7.4 g/dL (12.0-15.5); LYMPH # 0.6 x10^3/uL (1.0-4.8); LYMPH % 15 % (24-48); MEAN CORPUSCULAR HEMOGLOBIN 34 pg (25-35); MEAN CORPUSCULAR HGB CONC 35 g/dL (31-37); MEAN CORPUSCULAR VOLUME 99 fL (79-100); MONO % 23 % (0-9); NEUT % 62 % (31-73); PLATELET COUNT 50 x10^3/uL (140-400); RED BLOOD COUNT 2.15 x10^6/uL (3.50-5.40); RED CELL DISTRIBUTION WIDTH 24.2 % (11.5-14.5); WHITE BLOOD COUNT 3.8 x10^3/uL (4.0-11.0)
[2017-01-04 11:00] VITALS: BP 156/69
--- NOTE | 2017-01-04 11:11 | PDOC ---
SUBJECTIVE ROS ARTURO/ ATN c/o Pain, discomfort and swelling in lower ext CVS: no Orthopnea, no CP RESP: no SOB, no SEGUNDO GI: no Nausea, no Vomiting : no Dysuria, no Urgency OBJECTIVE Vital Signs Vital Signs Date Time Temp Pulse Resp B/P Pulse Ox O2 Delivery O2 Flow Rate FiO2 01/04/17 07:15 98.2 71 20 135/71 95 Room Air 98.2 I & 0 Intake and Output 01/04/17 06:59 Intake Total 568 ml Output Total 1550 ml Balance -982 ml Intake Oral 218 ml Blood Product IV Normal Saline Flush 350 ml Output Urine Total 1550 ml PHYSICAL EXAM Physical Exam GEN: Awake, Oriented x 3, In no distress EYES: Vision Unchanged, Conjunctiva Normal EN: No EN Drainage, Mucous Membranes moist NECK: no JVD, no JVP, Supple, no Thyromegaly CVS: S1S2, no Murmur, No Gallop, No Rub,+ Edema RESP: no Rales, no Rhonchi,no Acc. Muscle Use GI: BS + ve, NO Bruit, Non Tender, Non Distended : no CVA tenderness, no Suprapubic Tenderness DIAGNOSIS/ASSESSMENT Assessment & Plan ARF/ ATN : appears to have resolved; I suspect she was severly intravascularly vol deplete despite the external edema she was demonstrating. Do not see need for HD today Low K - replace IV, correct Mag Low Mag - IV Mag replacement as ordered ANEMIA; defer to Dr Connell etaenedina to treat in setting of Active Cancer HTN: Current BP meds as reviewed. See orders for changes. Edema - ? due to LIver Dysfucntion vs due to HypoAlbuminemia; suspect significant cap leak due to Gemzar; IV Alb to get alb to 3.0; d/c IVF pain in legs - suspect Xeloda asso neuropahty vs cellulitis H/o CholangioCa - Chemo etc per Dr Connell - May need CT with IVC to eval for LAD and IVC patency Low Axel - now better some; corrects for Low ALb, Ct to replace mag too; d/c zemplar etc and watch SEv HypoALbuminemia - ? due to POOR PO intake vs due to Liver dysfucntion. UA is not suggestive of Neph Syndrome Discussed Plan of Care with family and Dr Haney at bedside at length COMMENT/RELEVANT DATA Meds Current Medications Medications (Trade) Dose Ordered Sig/Shahab Start Time Stop Time Status Last Admin Dose Admin Acetaminophen (Tylenol) 650 mg PRN Q6HRS PRN 12/28/16 18:15 01/04/17 04:09 650 MG Albumin Human (Albuminar) 200 ml @ 200 mls/hr 1X PRN PRN 12/30/16 08:15 12/30/16 14:14 DC 12/30/16 09:22 200 MLS/HR Albumin Human (Plasmanate) 500 ml @ 75 mls/hr Q6H40M 12/31/16 15:15 01/01/17 11:14 DC 01/01/17 03:44 75 MLS/HR Albuterol/ Ipratropium (Duoneb) 3 ml PRN Q6HRS PRN 01/01/17 13:45 01/04/17 00:35 3 ML Calcium Acetate (Phoslo) 1,334 mg [id number] 12/30/16 12:00 01/04/17 09:46 1,334 MG Calcium Chloride 2000 mg/Sodium Chloride 120 ml @ 240 mls/hr 1X ONCE 12/28/16 08:00 12/28/16 08:29 DC 12/28/16 08:54 240 MLS/HR Cefpodoxime Proxetil (Vantin) 200 mg BID 01/03/17 21:00 01/04/17 09:46 200 MG Cetirizine HCl (Zyrtec) 10 mg PRN DAILY PRN 12/28/16 09:00 Cyanocobalamin (Vitamin B-12) 1,000 mcg QMONTH 01/04/17 09:00 01/04/17 09:49 1,000 MCG Diphenhydramine HCl (Benadryl) 25 mg 1X ONCE 12/27/16 08:15 12/27/16 08:22 DC 12/27/16 09:12 25 MG Fentanyl Citrate (Fentanyl 2ml Vial) 25 mcg PRN QID PRN 12/27/16 16:45 12/29/16 21:00 DC Furosemide (Lasix) 40 mg 1X ONCE 01/02/17 10:45 01/02/17 10:46 DC 01/02/17 11:43 40 MG Gabapentin (Neurontin) 300 mg DAILY 12/29/16 09:00 01/03/17 18:21 DC 01/03/17 09:06 300 MG Gabapentin 900 mg 900 mg TID 01/03/17 21:00 01/04/17 09:46 900 MG Heparin Sodium (Porcine) (Heparin Sodium) 1,550 unit PRN Q6HRS PRN 01/02/17 14:45 Heparin Sodium/ Dextrose 500 ml @ 0 mls/hr CONT PRN 01/02/17 14:45 01/04/17 00:07 0 MLS/HR Heparin Sodium/ Sodium Chloride 60 unit 1X ONCE 12/28/16 09:00 12/28/16 09:01 DC 12/28/16 10:11 60 UNIT Info (PHARMACY MONITORING -- do not chart) 1 each PRN DAILY PRN 12/30/16 08:15 UNV Lidocaine/Sodium Bicarbonate (Buffered Lidocaine 1%) 3 ml 1X ONCE 12/28/16 09:00 12/28/16 09:01 DC 12/28/16 10:10 3 ML Linezolid 300 ml @ 300 mls/hr Q12HR 12/28/16 09:00 12/31/16 10:43 DC 12/31/16 09:13 300 MLS/HR Lisinopril (Prinivil) 10 mg DAILY 12/28/16 09:00 12/28/16 09:00 DC Lorazepam (Ativan) 0.5 mg PRN Q4HRS PRN 12/31/16 09:00 01/01/17 09:43 0.5 MG Magnesium Sulfate/ Dextrose 50 ml @ 25 mls/hr 1X ONCE 12/31/16 15:00 12/31/16 16:59 DC 12/31/16 17:54 25 MLS/HR Magnesium Sulfate/ Dextrose (Magnesium Sulfate PREMIX 2GM) 50 ml @ 25 mls/hr PRN DAILY PRN 12/28/16 08:15 01/04/17 09:50 25 MLS/HR Metoclopramide HCl 5 mg 5 mg PRN Q6HRS PRN 12/31/16 11:45 01/01/17 09:42 5 MG Micafungin Sodium 100 mg/Dextrose 100 ml @ 100 mls/hr Q24H 12/28/16 08:00 12/31/16 10:43 DC 12/31/16 09:13 100 MLS/HR Midazolam HCl (Versed) 2 mg STK-MED ONCE 12/28/16 09:41 12/28/16 09:42 DC Ondansetron HCl (Zofran) 8 mg PRN Q6HRS PRN 12/31/16 08:58 01/03/17 08:59 8 MG Oxycodone/ Acetaminophen (Percocet 5/325) 2 tab Q4HRS PRN 12/27/16 16:45 01/02/17 21:22 2 TAB Pantoprazole Sodium (Protonix) 40 mg DAILYAC 12/28/16 07:30 01/04/17 09:46 40 MG Paricalcitol (Zemplar) 5 mcg 3X/WEEK 12/31/16 09:00 01/03/17 09:06 5 MCG Piperacillin Sod/ Tazobactam Sod (Zosyn Per Pharmacy) 1 each PRN DAILY PRN 12/27/16 17:30 12/28/16 07:27 DC Piperacillin Sod/ Tazobactam Sod 2.25 gm/Sodium Chloride 50 ml @ 100 mls/hr Q8HRS 12/28/16 14:00 01/03/17 13:01 DC 01/03/17 06:04 100 MLS/HR Piperacillin Sod/ Tazobactam Sod 3.375 gm/Sodium Chloride 50 ml @ 100 mls/hr 1X ONCE 12/27/16 18:00 12/27/16 18:29 DC 12/27/16 18:07 100 MLS/HR Potassium Chloride 40 meq 40 meq 1X ONCE 01/02/17 13:15 01/02/17 13:16 DC 01/02/17 13:21 40 MEQ Potassium Chloride (Klor-Con) 20 meq 1X ONCE 01/03/17 18:45 01/03/17 18:46 DC 01/03/17 18:56 20 MEQ Prochlorperazine Edisylate (Compazine) 10 mg PRN Q6HRS PRN 01/01/17 11:45 01/01/17 17:38 10 MG Prochlorperazine Edisylate 10 mg 10 mg 1X ONCE 12/29/16 14:00 12/29/16 14:01 DC 12/29/16 14:00 10 MG Saliva Substitute (Biotene Moisturizing Mouth) 2 spray PRN Q15MIN PRN 12/28/16 13:15 12/31/16 17:53 2 SPRAY Sodium Bicarbonate 50 meq 50 meq Q2H 12/28/16 08:30 12/28/16 10:31 DC 12/28/16 15:33 50 MEQ Sodium Bicarbonate/ Dextrose 1,150 ml @ 100 mls/hr [id number] 12/28/16 09:00 12/30/16 08:59 DC 12/30/16 06:08 100 MLS/HR Sodium Chloride (Iv Sodium Chloride 0.9% 1000ml Bag) 1,000 ml @ 75 mls/hr [id number] 01/03/17 18:45 01/04/17 09:46 75 MLS/HR Sodium Chloride (Normal Saline Flush) 10 ml 1X PRN PRN 12/30/16 08:15 12/31/16 08:14 DC Vancomycin HCl 1.5 gm/Sodium Chloride 500 ml @ 250 mls/hr Q48H 12/29/16 20:00 12/29/16 20:00 DC Vancomycin HCl 1 each 1 each PRN DAILY PRN 12/27/16 17:30 12/27/16 18:51 DC 12/27/16 18:45 1 EACH Vancomycin HCl 2 gm/Sodium Chloride 500 ml @ 250 mls/hr 1X ONCE 12/27/16 17:45 12/27/16 18:51 DC Warfarin Sodium (Coumadin - No Dose Today) 1 each 1X WARF ONCE 01/03/17 16:00 01/03/17 23:01 DC Warfarin Sodium (Coumadin Per Pharmacy) 1 each PRN DAILY PRN 01/02/17 14:45 01/03/17 23:01 DC 01/03/17 11:34 1 EACH Warfarin Sodium (Coumadin) 5 mg 1X WARF ONCE 01/02/17 16:00 01/02/17 16:01 DC 01/02/17 17:41 5 MG Lab Laboratory Tests Test 01/04/17 05:40 White Blood Count 3.9x10^3/uL (4.0-11.0) Red Blood Count 2.19x10^6/uL (3.50-5.40) Hemoglobin 7.4g/dL (12.0-15.5) Hematocrit 21.6% (36.0-47.0) Mean Corpuscular Volume 98fL (79-100) Mean Corpuscular Hemoglobin 34pg (25-35) Mean Corpuscular Hemoglobin Concent 34g/dL (31-37) Red Cell Distribution Width 24.4% (11.5-14.5) Platelet Count 51x10^3/uL (140-400) Prothrombin Time 14.3SEC (11.7-14.0) Prothromb Time International Ratio 1.2 (0.8-1.1) Heparin Anti-Xa Act, Unfractionated 0.61IU/mL (0.30-0.70) Sodium Level 140mmol/L (136-145) Potassium Level 3.2mmol/L (3.5-5.1) Chloride Level 103mmol/L (98-107) Carbon Dioxide Level 30mmol/L (21-32) Anion Gap 7 (6-14) Blood Urea Nitrogen 21mg/dL (7-20) Creatinine 1.3mg/dL (0.6-1.0) Estimated GFR (Cockcroft-Gault) 40.9 BUN/Creatinine Ratio 16 (6-20) Glucose Level 98mg/dL (70-99) Calcium Level 7.9mg/dL (8.5-10.1) Magnesium Level 1.6mg/dL (1.8-2.4) Total Bilirubin 0.8mg/dL (0.2-1.0) Aspartate Amino Transf (AST/SGOT) 72U/L (15-37) Alanine Aminotransferase (ALT/SGPT) 48U/L (14-59) Alkaline Phosphatase 147U/L (46-116) Creatine Kinase 32U/L (26-192) Total Protein 5.2g/dL (6.4-8.2) Albumin 2.7g/dL (3.4-5.0) Albumin/Globulin Ratio 1.1 (1.0-1.7) DAKOTA VINCENT MD Jan 04, 2017 11:11
[2017-01-04] MEDS: POTASSIUM CHLORIDE 20MEQ 50 ML IV PRN ×2 (12:00→13:46)
[2017-01-04 13:12] LABS: ANISOCYTOSIS MOD; PLT ESTIMATE DECREASED (ADEQUATE)
[2017-01-04] MEDS: ALBUMIN HUMAN 25% 100 ML IV SCH ×2 (14:19→20:34)
[2017-01-04 15:00] VITALS: BP 144/66
[2017-01-04] MEDS: WARFARIN 4 MG TABLET. PO SCH (17:38)
[2017-01-04 19:00] VITALS: BP 141/66
[2017-01-04] MEDS: oxyCODONE/APAP 5/325 1 TAB TABLET PO PRN (20:35)
[2017-01-04 23:00] VITALS: BP 136/55
[2017-01-05] VITALS (12 sets, daily range): BP systolic 110–165; BP diastolic 65–76
[2017-01-05] MEDS: PANTOPRAZOLE 40 MG TABLET.DR. PO SCH (02:12)
[2017-01-05] MEDS: ACETAMINOPHEN 325 MG TABLET. PO PRN (02:15)
[2017-01-05] MEDS: IPRATRPIUM/ALBUTEROL 0.5/2.5MG 3 ML NEBU. NEB PRN ×2 (02:55→11:26)
[2017-01-05] MEDS: HEPARIN 25,000UTS/500ML PREMIX 500 ML IV PRN ×2 (06:21→22:50)
[2017-01-05 06:39] LABS: BASO % 0 % (0-3); EOS % 0 % (0-3); LYMPH # 0.6 x10^3/uL (1.0-4.8); LYMPH % 15 % (24-48); MEAN CORPUSCULAR HEMOGLOBIN 34 pg (25-35); MEAN CORPUSCULAR HGB CONC 35 g/dL (31-37); MEAN CORPUSCULAR VOLUME 99 fL (79-100); MONO % 31 % (0-9); NEUT % 54 % (31-73); PLATELET COUNT 55 x10^3/uL (140-400); RED BLOOD COUNT 1.99 x10^6/uL (3.50-5.40); RED CELL DISTRIBUTION WIDTH 23.3 % (11.5-14.5); WHITE BLOOD COUNT 4.3 x10^3/uL (4.0-11.0)
[2017-01-05 07:18] LABS: HEMATOCRIT 19.7 % (36.0-47.0); HEMOGLOBIN 6.8 g/dL (12.0-15.5)
[2017-01-05 07:50] LABS: INR 1.2 (0.8-1.1); PROTHROMBIN TIME PATIENT 14.3 SEC (11.7-14.0)
[2017-01-05] MEDS: GABAPENTIN 300 MG CAPSULE. PO SCH ×3 (08:52→20:48)
[2017-01-05] MEDS: ALBUMIN HUMAN 25% 100 ML IV SCH ×2 (08:52→14:15)
[2017-01-05] MEDS: CEFPODOXIME PROXETIL 100 MG TABLET. PO SCH (08:53)
--- NOTE | 2017-01-05 09:37 | PDOC ---
Infectious Disease Note Subjective Subjective improved ROS ROS GEN: Denies fevers, chills, sweats HEENT: Denies blurred vision, sore throat CV: Denies chest pain RESP: Denies shortness of air, cough GI: Denies n/v/d NEURO: Denies confusion, dizziness MSK: Denies weakness, joint pain/swelling Vital Sign Vital Signs Vital Signs Date Time Temp Pulse Resp B/P Pulse Ox O2 Delivery O2 Flow Rate FiO2 01/05/17 07:00 97.5 80 16 144/76 91 Room Air 97.5 Physical Exam PHYSICAL EXAM GENERAL: Propped up in recliner relaxed appearance HEENT: OC/OP clear LUNGS: Clear HEART: S1S2, no gallop, no murmur ABD: Obese, BS present, soft, NT EXT: BLE edema little less. tubigrips in place. some wrinkling and flaking, and medial petechial type rash, fading. A few scabs right posterior/lateral calf. Improved RUE swollen and warm. 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 clean [facility] clean Labs Lab Laboratory Tests Test 01/04/17 12:12 01/04/17 17:40 01/05/17 06:00 Potassium Level 3.3mmol/L (3.5-5.1) 3.8mmol/L (3.5-5.1) 3.5mmol/L (3.5-5.1) White Blood Count 4.3x10^3/uL (4.0-11.0) Red Blood Count 1.99x10^6/uL (3.50-5.40) Hemoglobin 6.8g/dL (12.0-15.5) Hematocrit 19.7% (36.0-47.0) Mean Corpuscular Volume 99fL (79-100) Mean Corpuscular Hemoglobin 34pg (25-35) Mean Corpuscular Hemoglobin Concent 35g/dL (31-37) Red Cell Distribution Width 23.3% (11.5-14.5) Platelet Count 55x10^3/uL (140-400) Neutrophils (%) (Auto) 54% (31-73) Lymphocytes (%) (Auto) 15% (24-48) Monocytes (%) (Auto) 31% (0-9) Eosinophils (%) (Auto) 0% (0-3) Basophils (%) (Auto) 0% (0-3) Neutrophils # (Auto) 2.3x10^3uL (1.8-7.7) Lymphocytes # (Auto) 0.6x10^3/uL (1.0-4.8) Monocytes # (Auto) 1.3x10^3/uL (0.0-1.1) Eosinophils # (Auto) 0.0x10^3/uL (0.0-0.7) Basophils # (Auto) 0.0x10^3/uL (0.0-0.2) Prothrombin Time 14.3SEC (11.7-14.0) Prothromb Time International Ratio 1.2 (0.8-1.1) Magnesium Level 1.7mg/dL (1.8-2.4) Objective Assessment RUE DVT Right LE cellulitis - better ARTURO and electrolyte abnormalities - better s/p HD Pancytopenia - mild encephalopathy - improved but twitch continues? electrolyte disturbance, ? 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
[2017-01-05] MEDS ORDERED: MAGNESIUM SULFATE 1GM 100 ML IV ONE (11:00)
[2017-01-05] MEDS ORDERED: MAGNESIUM SULFATE 2GM 50 ML IV PRN (11:00)
[2017-01-05 13:58] LABS: CALCIUM 7.9 mg/dL (8.5-10.1); GFR 55.3; POTASSIUM 3.4 mmol/L (3.5-5.1)
--- NOTE | 2017-01-05 15:03 | PDOC ---
PROGRESS NOTES Chief Complaint Chief Complaint LE erythema and edema Acute metabolic encephalopathy ASSESSMENT AND PLAN: 1. Cellulitis B LE vs Gemzar/hypoalbuminemia ASE: on empiric Abx as per ID service. US LE 12/28 neg for DVT. 2. ARTURO: oliguric ATN/ Gap metabolic acidosis. 2/2 gemzar. appreciate nephrology help w/ management 3. LE edema, bilat: suspect due to hypoalbuminemia, renal issues. d/w Dr Kerr: trial of lasix with IV albumin 4. Hyperkalemia, hypokalemia: replete as indicated. 5. Hypomagnesemia: resolved 6. Hypocalcemia. s/p IV calcium. twitching resolved 7. R UE DVT at IJ: heparin, no coumadin until plts >50K 8. Thrombocytopenia - plan platelet transfusion. 9. Cholangiocarcinoma STAGE 4: chemo currently on hold. F/U w/Dr Connell on O/P basis 10. Peripheral neuropathy: poss / chemo. on gabapentin, B12 11. Pancytopenia: / chemo 12. N/V, diarrhea with chemo: none here 13. GERD: on PPI 14. Hypoalbuminemia: due to malnutrition, malignancy. protein supplements History of Present Illness History of Present Illness feels well, she is frustrated with slow improvement, weight still up , no GI c/o, but still concerned about leg swelling 1 u PRBC today for hgb < 7 Vitals Vitals Vital Signs Date Time Temp Pulse Resp B/P Pulse Ox O2 Delivery O2 Flow Rate FiO2 01/05/17 11:27 90 Room Air 01/05/17 11:00 97.5 80 20 159/67 2.0 97.5 Physical Exam General: Alert, Oriented X3, No acute distress Heart: Normal S1, Normal S2 Lungs: Clear, Crackles, Other Abdomen: Normal bowel sounds, Soft, No tenderness Extremities: Other (2+ edema Bilateral LE unchanged. right upper EXT edema ) Skin: Other (erythema improving) Labs LABS Laboratory Tests Test 01/04/17 17:40 01/05/17 06:00 01/05/17 13:30 Potassium Level 3.8mmol/L (3.5-5.1) 3.5mmol/L (3.5-5.1) 3.4mmol/L (3.5-5.1) White Blood Count 4.3x10^3/uL (4.0-11.0) Red Blood Count 1.99x10^6/uL (3.50-5.40) Hemoglobin 6.8g/dL (12.0-15.5) Hematocrit 19.7% (36.0-47.0) Mean Corpuscular Volume 99fL (79-100) Mean Corpuscular Hemoglobin 34pg (25-35) Mean Corpuscular Hemoglobin Concent 35g/dL (31-37) Red Cell Distribution Width 23.3% (11.5-14.5) Platelet Count 55x10^3/uL (140-400) Neutrophils (%) (Auto) 54% (31-73) Lymphocytes (%) (Auto) 15% (24-48) Monocytes (%) (Auto) 31% (0-9) Eosinophils (%) (Auto) 0% (0-3) Basophils (%) (Auto) 0% (0-3) Neutrophils # (Auto) 2.3x10^3uL (1.8-7.7) Lymphocytes # (Auto) 0.6x10^3/uL (1.0-4.8) Monocytes # (Auto) 1.3x10^3/uL (0.0-1.1) Eosinophils # (Auto) 0.0x10^3/uL (0.0-0.7) Basophils # (Auto) 0.0x10^3/uL (0.0-0.2) Prothrombin Time 14.3SEC (11.7-14.0) Prothromb Time International Ratio 1.2 (0.8-1.1) Magnesium Level 1.7mg/dL (1.8-2.4) Heparin Anti-Xa Act, Unfractionated 0.65IU/mL (0.30-0.70) Sodium Level 142mmol/L (136-145) Chloride Level 105mmol/L (98-107) Carbon Dioxide Level 30mmol/L (21-32) Anion Gap 7 (6-14) Blood Urea Nitrogen 14mg/dL (7-20) Creatinine 1.0mg/dL (0.6-1.0) Estimated GFR (Cockcroft-Gault) 55.3 Glucose Level 121mg/dL (70-99) Calcium Level 7.9mg/dL (8.5-10.1) Review of Systems Review of Systems leg fullness, weakness, LE edema no nausea Assessment and Plan Assessmemt and Plan Problems Medical Problems: (1) Cellulitis Status: Acute Problems: Comment Review of Relevant I have reviewed the following items ketty (where applicable) has been applied. Labs Laboratory Tests Test 01/04/17 05:40 01/04/17 12:12 01/04/17 17:40 01/05/17 06:00 White Blood Count 3.9x10^3/uL (4.0-11.0) 4.3x10^3/uL (4.0-11.0) Red Blood Count 2.19x10^6/uL (3.50-5.40) 1.99x10^6/uL (3.50-5.40) Hemoglobin 7.4g/dL (12.0-15.5) 6.8g/dL (12.0-15.5) Hematocrit 21.6% (36.0-47.0) 19.7% (36.0-47.0) Mean Corpuscular Volume 98fL (79-100) 99fL (79-100) Mean Corpuscular Hemoglobin 34pg (25-35) 34pg (25-35) Mean Corpuscular Hemoglobin Concent 34g/dL (31-37) 35g/dL (31-37) Red Cell Distribution Width 24.4% (11.5-14.5) 23.3% (11.5-14.5) Platelet Count 51x10^3/uL (140-400) 55x10^3/uL (140-400) Neutrophils (%) (Auto) 62% (31-73) 54% (31-73) Lymphocytes (%) (Auto) 15% (24-48) 15% (24-48) Monocytes (%) (Auto) 23% (0-9) 31% (0-9) Eosinophils (%) (Auto) 0% (0-3) 0% (0-3) Basophils (%) (Auto) 0% (0-3) 0% (0-3) Neutrophils # (Auto) 2.3x10^3uL (1.8-7.7) 2.3x10^3uL (1.8-7.7) Lymphocytes # (Auto) 0.6x10^3/uL (1.0-4.8) 0.6x10^3/uL (1.0-4.8) Monocytes # (Auto) 0.9x10^3/uL (0.0-1.1) 1.3x10^3/uL (0.0-1.1) Eosinophils # (Auto) 0.0x10^3/uL (0.0-0.7) 0.0x10^3/uL (0.0-0.7) Basophils # (Auto) 0.0x10^3/uL (0.0-0.2) 0.0x10^3/uL (0.0-0.2) Segmented Neutrophils % 69% (35-66) Band Neutrophils % 3% (0-9) Lymphocytes % 13% (24-48) Monocytes % 14% (0-10) Myelocytes % 1% (0-0) Platelet Estimate Decreased (ADEQUATE) Anisocytosis Mod Macrocytosis Slight Prothrombin Time 14.3SEC (11.7-14.0) 14.3SEC (11.7-14.0) Prothromb Time International Ratio 1.2 (0.8-1.1) 1.2 (0.8-1.1) Heparin Anti-Xa Act, Unfractionated 0.61IU/mL (0.30-0.70) Sodium Level 140mmol/L (136-145) Potassium Level 3.2mmol/L (3.5-5.1) 3.3mmol/L (3.5-5.1) 3.8mmol/L (3.5-5.1) 3.5mmol/L (3.5-5.1) Chloride Level 103mmol/L (98-107) Carbon Dioxide Level 30mmol/L (21-32) Anion Gap 7 (6-14) Blood Urea Nitrogen 21mg/dL (7-20) Creatinine 1.3mg/dL (0.6-1.0) Estimated GFR (Cockcroft-Gault) 40.9 BUN/Creatinine Ratio 16 (6-20) Glucose Level 98mg/dL (70-99) Calcium Level 7.9mg/dL (8.5-10.1) Phosphorus Level 2.7mg/dL (2.6-4.7) Magnesium Level 1.6mg/dL (1.8-2.4) 1.7mg/dL (1.8-2.4) Total Bilirubin 0.8mg/dL (0.2-1.0) Aspartate Amino Transf (AST/SGOT) 72U/L (15-37) Alanine Aminotransferase (ALT/SGPT) 48U/L (14-59) Alkaline Phosphatase 147U/L (46-116) Creatine Kinase 32U/L (26-192) Total Protein 5.2g/dL (6.4-8.2) Albumin 2.7g/dL (3.4-5.0) Albumin/Globulin Ratio 1.1 (1.0-1.7) Test 01/05/17 13:30 Heparin Anti-Xa Act, Unfractionated 0.65IU/mL (0.30-0.70) Sodium Level 142mmol/L (136-145) Potassium Level 3.4mmol/L (3.5-5.1) Chloride Level 105mmol/L (98-107) Carbon Dioxide Level 30mmol/L (21-32) Anion Gap 7 (6-14) Blood Urea Nitrogen 14mg/dL (7-20) Creatinine 1.0mg/dL (0.6-1.0) Estimated GFR (Cockcroft-Gault) 55.3 Glucose Level 121mg/dL (70-99) Calcium Level 7.9mg/dL (8.5-10.1) Laboratory Tests Test 01/04/17 17:40 01/05/17 06:00 01/05/17 13:30 Potassium Level 3.8mmol/L (3.5-5.1) 3.5mmol/L (3.5-5.1) 3.4mmol/L (3.5-5.1) White Blood Count 4.3x10^3/uL (4.0-11.0) Red Blood Count 1.99x10^6/uL (3.50-5.40) Hemoglobin 6.8g/dL (12.0-15.5) Hematocrit 19.7% (36.0-47.0) Mean Corpuscular Volume 99fL (79-100) Mean Corpuscular Hemoglobin 34pg (25-35) Mean Corpuscular Hemoglobin Concent 35g/dL (31-37) Red Cell Distribution Width 23.3% (11.5-14.5) Platelet Count 55x10^3/uL (140-400) Neutrophils (%) (Auto) 54% (31-73) Lymphocytes (%) (Auto) 15% (24-48) Monocytes (%) (Auto) 31% (0-9) Eosinophils (%) (Auto) 0% (0-3) Basophils (%) (Auto) 0% (0-3) Neutrophils # (Auto) 2.3x10^3uL (1.8-7.7) Lymphocytes # (Auto) 0.6x10^3/uL (1.0-4.8) Monocytes # (Auto) 1.3x10^3/uL (0.0-1.1) Eosinophils # (Auto) 0.0x10^3/uL (0.0-0.7) Basophils # (Auto) 0.0x10^3/uL (0.0-0.2) Prothrombin Time 14.3SEC (11.7-14.0) Prothromb Time International Ratio 1.2 (0.8-1.1) Magnesium Level 1.7mg/dL (1.8-2.4) Heparin Anti-Xa Act, Unfractionated 0.65IU/mL (0.30-0.70) Sodium Level 142mmol/L (136-145) Chloride Level 105mmol/L (98-107) Carbon Dioxide Level 30mmol/L (21-32) Anion Gap 7 (6-14) Blood Urea Nitrogen 14mg/dL (7-20) Creatinine 1.0mg/dL (0.6-1.0) Estimated GFR (Cockcroft-Gault) 55.3 Glucose Level 121mg/dL (70-99) Calcium Level 7.9mg/dL (8.5-10.1) Microbiology 12/27/16 Blood Culture - Final, Complete NO GROWTH AFTER 5 DAYS 12/31/16 Urine Culture - Final, Complete 12/31/16 Urine Culture Result 1 (MANE) - Final, Complete Medications Current Medications Acetaminophen (Tylenol) 650 mg 1X ONCE PO Last administered on 12/27/16t 09:11 ; Start 12/27/16 at 08:15; Stop 12/27/16 at 08:22; Status DC Diphenhydramine HCl (Benadryl) 25 mg 1X ONCE PO Last administered on 09:12; Start 12/27/16 at 08:15; Stop 12/27/16 at 08:22; Status DC Furosemide (Lasix) 20 mg 1X ONCE IVP ; Start 12/27/16 at 08:15; Stop 12/27/16 at 08:22; Status DC Fentanyl Citrate (Fentanyl 2ml Vial) 25 mcg PRN QID PRN IV PAIN; Start at 16:45; Stop 12/29/16 at 21:00; Status DC Lisinopril (Prinivil) 10 mg DAILY PO ; Start 12/28/16 at 09:00; Stop 12/28/16 at 09:00; Status DC Oxycodone/ Acetaminophen (Percocet 5/325) 1 tab Q4HRS PRN PO MILD/MODERATE PAIN Last administered on 01/01/17 17:44; Start 12/27/16 at 16:45 Gabapentin (Neurontin) 300 mg TID PO Last administered on 12/28/16 10:44; Start 12/27/16 at 21:00; Stop 12/28/16 at 15:23; Status DC Cetirizine HCl (Zyrtec) 10 mg PRN DAILY PRN PO ALLERGIES; Start 12/28/16 at 09: 00 Pantoprazole Sodium (Protonix) 40 mg DAILYAC PO Last administered on 01/05/17 02:12; Start 12/28/16 at 07:30 Oxycodone/ Acetaminophen 2 tab 2 tab Q4HRS PRN PO SEVERE PAIN Last administered on 01/04/17 20:35; Start 12/27/16 at 16:45 Sodium Chloride (Iv Sodium Chloride 0.9% 1000ml Bag) 1,000 ml @ 75 mls/hr [id number] IV Last administered on 12/28/16 07:12; Start 12/27/16 at 17:30; Stop 12/28/16 at 08:15; Status DC Piperacillin Sod/ Tazobactam Sod (Zosyn Per Pharmacy) 1 each PRN DAILY PRN MC SEE COMMENTS; Start 12/27/16 at 17:30; Stop 12/28/16 at 07:27; Status DC Vancomycin HCl 1 each 1 each PRN DAILY PRN MC SEE COMMENTS Last administered on 12/27/16 18:45; Start 12/27/16 at 17:30; Stop 12/27/16 at 18:51; Status DC Vancomycin HCl 2 gm/Sodium Chloride 500 ml @ 250 mls/hr 1X ONCE IV ; Start at 17:45; Stop 12/27/16 at 18:51; Status DC Piperacillin Sod/ Tazobactam Sod 3.375 gm/Sodium Chloride 50 ml @ 100 mls/hr 1X ONCE IV Last administered on 12/27/16 18:07; Start 12/27/16 at 18:00; Stop 12/27/16 at 18:29; Status DC Piperacillin Sod/ Tazobactam Sod 2.25 gm/Sodium Chloride 50 ml @ 100 mls/hr Q6HRS IV Last administered on 12/28/16 06:08; Start 12/28/16 at 00:00; Stop at 07:31; Status DC Vancomycin HCl 1.5 gm/Sodium Chloride 500 ml @ 250 mls/hr Q48H IV ; Start 12/29 at 20:00; Stop 12/29/16 at 20:00; Status DC Micafungin Sodium 100 mg/Dextrose 100 ml @ 100 mls/hr Q24H IV Last administered on 12/31/16 09:13; Start 12/28/16 at 08:00; Stop 12/31/16 at 10:43 ; Status DC Linezolid 300 ml @ 300 mls/hr Q12HR IV Last administered on 12/31/16 09:13; Start 12/28/16 at 09:00; Stop 12/31/16 at 10:43; Status DC Piperacillin Sod/ Tazobactam Sod 2.25 gm/Sodium Chloride 50 ml @ 100 mls/hr Q8HRS IV Last administered on 01/03/17 06:04; Start 12/28/16 at 14:00; Stop at 13:01; Status DC Calcium Chloride 2000 mg/Sodium Chloride 120 ml @ 240 mls/hr 1X ONCE IV Last administered on 12/28/16 08:54; Start 12/28/16 at 08:00; Stop 12/28/16 at 08:29 ; Status DC Magnesium Sulfate/ Dextrose (Magnesium Sulfate PREMIX 2GM) 50 ml @ 25 mls/hr PRN DAILY PRN IV for Mag < 1.7 on am labs Last administered on 01/04/17 09:50 ; Start 12/28/16 at 08:15 Sodium Bicarbonate 50 meq 50 meq Q2H IV Last administered on 12/28/16 15:33; Start 12/28/16 at 08:30; Stop 12/28/16 at 10:31; Status DC Sodium Chloride 500 ml @ 0 mls/hr PRN QID PRN IV UO< 30cc/hr over previous 6hrs ; Start 12/28/16 at 08:15; Stop 01/03/17 at 18:34; Status DC Sodium Bicarbonate/ Dextrose 1,150 ml @ 100 mls/hr [id number] IV Last administered on 12/30/16 06:08; Start 12/28/16 at 09:00; Stop 12/30/16 at 08:59 ; Status DC Heparin Sodium (Porcine) (Heparin Sodium) 10,000 unit STK-MED ONCE .ROUTE ; Start 12/28/16 at 08:46; Stop 12/28/16 at 08:47; Status DC Lidocaine/Sodium Bicarbonate 20 ml 20 ml STK-MED ONCE IJ ; Start 12/28/16 at 08: 47; Stop 12/28/16 at 08:48; Status DC Heparin Sodium/ Sodium Chloride 500 ml @ As Directed STK-MED ONCE .ROUTE ; Start 12/28/16 at 08:47; Stop 12/28/16 at 08:48; Status DC Lidocaine/Sodium Bicarbonate (Buffered Lidocaine 1%) 3 ml 1X ONCE IJ Last administered on 12/28/16 10:10; Start 12/28/16 at 09:00; Stop 12/28/16 at 09:01 ; Status DC Heparin Sodium/ Sodium Chloride 60 unit 1X ONCE IV Last administered on 10:11; Start 12/28/16 at 09:00; Stop 12/28/16 at 09:01; Status DC Heparin Sodium (Porcine) (Heparin Sodium) 2,500 unit 1X ONCE INT CAT Last administered on 12/28/16 10:10; Start 12/28/16 at 09:00; Stop 12/28/16 at 09:01 ; Status DC Midazolam HCl (Versed) 2 mg STK-MED ONCE .ROUTE ; Start 12/28/16 at 09:41; Stop 12/28/16 at 09:42; Status DC Saliva Substitute (Biotene Moisturizing Mouth) 2 spray PRN Q15MIN PRN PO DRY MOUTH Last administered on 12/31/16 17:53; Start 12/28/16 at 13:15 Gabapentin (Neurontin) 300 mg DAILY PO Last administered on 01/03/17 09:06; Start 12/29/16 at 09:00; Stop 01/03/17 at 18:21; Status DC Acetaminophen (Tylenol) 650 mg PRN Q6HRS PRN PO MILD PAIN Last administered on 01/05/17 02:15; Start 12/28/16 at 18:15 Ondansetron HCl (Zofran) 4 mg PRN Q6HRS PRN IV NAUSEA/VOMITING Last administered on 12/29/16 11:10; Start 12/29/16 at 10:45; Stop 12/29/16 at 13:53 ; Status DC Ondansetron HCl (Zofran) 8 mg PRN Q8HRS PRN IV NAUSEA/VOMITING Last administered on 12/31/16 03:35; Start 12/29/16 at 14:00; Stop 12/31/16 at 09:03 ; Status DC Prochlorperazine Edisylate 10 mg 10 mg 1X ONCE IV Last administered on 14:00; Start 12/29/16 at 14:00; Stop 12/29/16 at 14:01; Status DC Sodium Chloride 500 ml @ 500 mls/hr 1X ONCE IV Last administered on 23:20; Start 12/29/16 at 23:30; Stop 12/30/16 at 00:29; Status DC Sodium Chloride 500 ml @ 500 mls/hr 1X ONCE IV Last administered on 00:05; Start 12/30/16 at 00:00; Stop 12/30/16 at 00:59; Status DC Sodium Chloride 1,000 ml @ 1,000 mls/hr Q1H PRN IV hypotension; Start 12/30/16 at 08:03; Stop 12/30/16 at 14:02; Status DC Albumin Human (Albuminar) 200 ml @ 200 mls/hr 1X PRN PRN IV Hypotension Last administered on 12/30/16 09:22; Start 12/30/16 at 08:15; Stop 12/30/16 at 14:14 ; Status DC Sodium Chloride (Normal Saline Flush) 10 ml 1X PRN PRN IV AP catheter pack; Start 12/30/16 at 08:15; Stop 12/31/16 at 08:14; Status DC Sodium Chloride (Normal Saline Flush) 10 ml 1X PRN PRN IV [employer] catheter pack; Start 12/30/16 at 08:15; Stop 12/31/16 at 08:14; Status DC Info (PHARMACY MONITORING -- do not chart) 1 each PRN DAILY PRN MC SEE COMMENTS ; Start 12/30/16 at 08:15 Info (PHARMACY MONITORING -- do not chart) 1 each PRN DAILY PRN MC SEE COMMENTS ; Start 12/30/16 at 08:15; Status UNV Paricalcitol (Zemplar) 5 mcg 3X/WEEK IV Last administered on 01/03/17 09:06; Start 12/31/16 at 09:00; Stop 01/04/17 at 11:03; Status DC Calcium Acetate 1334 mg 1,334 mg TIDWMEALS PO Last administered on 01/04/17 09 :46; Start 12/30/16 at 12:00; Stop 01/04/17 at 11:03; Status DC Albumin Human (Plasmanate) 500 ml @ 120 mls/hr Q4HRS IV Last administered on 16:45; Start 12/30/16 at 12:00; Stop 12/30/16 at 19:59; Status DC Ondansetron HCl (Zofran) 8 mg PRN Q6HRS PRN IV NAUSEA/VOMITING, 2ND CHOICE Last administered on 01/03/17 08:59; Start 12/31/16 at 08:58 Lorazepam (Ativan) 0.5 mg PRN Q4HRS PRN IV ANXIETY / AGITATION Last administered on 01/01/17 09:43; Start 12/31/16 at 09:00 Prochlorperazine Edisylate (Compazine) 10 mg PRN Q6HRS PRN IM NAUSEA/VOMITING Last administered on 12/31/16 09:15; Start 12/31/16 at 09:00; Stop 01/01/17 at 11:48; Status DC Metoclopramide HCl 5 mg 5 mg PRN Q6HRS PRN IV NAUSEA/VOMITING, 1ST CHOICE Last administered on 01/01/17 09:42; Start 12/31/16 at 11:45 Magnesium Sulfate/ Dextrose 50 ml @ 25 mls/hr 1X ONCE IV Last administered on 12/31/16 17:54; Start 12/31/16 at 15:00; Stop 12/31/16 at 16:59; Status DC Albumin Human (Plasmanate) 500 ml @ 75 mls/hr Q6H40M IV Last administered on 03:44; Start 12/31/16 at 15:15; Stop 01/01/17 at 11:14; Status DC Prochlorperazine Edisylate (Compazine) 10 mg PRN Q6HRS PRN IV NAUSEA/VOMITING, 3RD CHOICE Last administered on 01/01/17 17:38; Start 01/01/17 at 11:45 Potassium Chloride (Klor-Con) 40 meq 1X ONCE PO Last administered on 13:02; Start 01/01/17 at 12:00; Stop 01/01/17 at 12:01; Status DC Furosemide (Lasix) 40 mg 1X ONCE IVP Last administered on 01/01/17 14:24; Start 01/01/17 at 14:00; Stop 01/01/17 at 14:01; Status DC Albuterol/ Ipratropium (Duoneb) 3 ml PRN Q6HRS PRN NEB SHORTNESS OF BREATH Last administered on 01/05/17 11:26; Start 01/01/17 at 13:45 Furosemide (Lasix) 40 mg 1X ONCE IVP Last administered on 01/02/17 11:43; Start 01/02/17 at 10:45; Stop 01/02/17 at 10:46; Status DC Potassium Chloride 40 meq 40 meq 1X ONCE PO Last administered on 01/02/17 13: 21; Start 01/02/17 at 13:15; Stop 01/02/17 at 13:16; Status DC Heparin Sodium/ Dextrose 500 ml @ 0 mls/hr CONT PRN IV SEE I/O RECORD Last administered on 01/05/17 06:21; Start 01/02/17 at 14:45 Heparin Sodium (Porcine) (Heparin Sodium) 3,150 unit PRN Q6HRS PRN IV FOR UFH LEVEL LESS THAN 0.2; Start 01/02/17 at 14:45 Heparin Sodium (Porcine) (Heparin Sodium) 1,550 unit PRN Q6HRS PRN IV FOR UFH LEVEL 0.2 - 0.29; Start 01/02/17 at 14:45 Warfarin Sodium (Coumadin Per Pharmacy) 1 each PRN DAILY PRN MC PER PROTOCOL Last administered on 01/03/17 11:34; Start 01/02/17 at 14:45; Stop 01/03/17 at 23:01; Status DC Warfarin Sodium (Coumadin) 5 mg 1X WARF ONCE PO Last administered on 17:41; Start 01/02/17 at 16:00; Stop 01/02/17 at 16:01; Status DC Warfarin Sodium (Coumadin - No Dose Today) 1 each 1X WARF ONCE MC ; Start 01/03 at 16:00; Stop 01/03/17 at 23:01; Status DC Cefpodoxime Proxetil (Vantin) 200 mg BID PO Last administered on 01/05/17 08: 53; Start 01/03/17 at 21:00; Stop 01/05/17 at 09:37; Status DC Cyanocobalamin (Vitamin B-12) 1,000 mcg QMONTH IM Last administered on 09:49; Start 01/04/17 at 09:00 Gabapentin 900 mg 900 mg TID PO Last administered on 01/05/17 14:15; Start at 21:00 Sodium Chloride (Iv Sodium Chloride 0.9% 1000ml Bag) 1,000 ml @ 75 mls/hr [id number] IV Last administered on 01/04/17 09:46; Start 01/03/17 at 18:45; Stop 01/04/17 at 11:04; Status DC Potassium Chloride 20 meq 20 meq 1X ONCE PO Last administered on 01/03/17 18: 56; Start 01/03/17 at 18:45; Stop 01/03/17 at 18:46; Status DC Magnesium Sulfate/ Dextrose 50 ml @ 25 mls/hr PRN DAILY PRN IV for Mag < 1.7 on am labs; Start 01/04/17 at 10:45; Status UNV Potassium Chloride 50 ml @ 50 mls/hr PRN Q6HRS PRN IV For K < 3.7 Last administered on 01/05/17 13:10; Start 01/04/17 at 10:45 Potassium Chloride 50 ml @ 50 mls/hr PRN Q2HR PRN IV total of 40mEq for K < 3.5 Last administered on 01/04/17 13:46; Start 01/04/17 at 10:45 Albumin Human (Albuminar) 100 ml @ 100 mls/hr TID IV Last administered on 01/05 14:15; Start 01/04/17 at 14:00; Stop 01/06/17 at 09:59 Warfarin Sodium (Coumadin) 4 mg DAILY16 PO Last administered on 01/04/17 17:38 ; Start 01/04/17 at 17:00 Warfarin Sodium 1 each 1 each PRN DAILY PRN MC SEE COMMENTS; Start 01/04/17 at 17:00 Magnesium Sulfate/ Dextrose 100 ml @ 100 mls/hr 1X ONCE IV Last administered on 01/05/17 11:35; Start 01/05/17 at 11:00; Stop 01/05/17 at 11:59; Status DC Magnesium Sulfate/ Dextrose (Magnesium Sulfate PREMIX 2GM) 50 ml @ 25 mls/hr PRN DAILY PRN IV for Mag < 1.7 on am labs; Start 01/05/17 at 11:00 Active Scripts Active Reported Gabapentin 300 Mg Capsule 900 Mg PO TID Claritin (Loratadine) 10 Mg Tablet 1 Tab PO DAILY PRN Bactrim 400-80 Mg Tablet (Sulfamethoxazole/Trimethoprim) 1 Each Tablet 1 Tab PO BID Gabapentin 300 Mg Capsule 300 Mg PO TID Zestril (Lisinopril) 10 Mg Tablet 10 Mg PO DAILY Cyanocobalamin Injection (Cyanocobalamin (Vitamin B-12)) 1,000 Mcg/1 Ml Vial 1, 000 Mcg QMONTH Percocet 5-325 Mg Tablet (Oxycodone/Acetaminophen) 1 Each Tablet 1-2 Tab PO Q4- 6HRS Prilosec Otc (Omeprazole Magnesium) 20 Mg Tablet.dr 20 Mg PO DAILY Vitals/I & O Vital Sign - Last 24 Hours 01/04/17 01/04/17 01/04/17 01/04/17 19:00 20:11 20:35 21:00 Temp 97.9 97.9 Pulse 80 Resp 18 20 B/P 141/66 Pulse Ox 93 93 93 O2 Delivery Room Air Room Air Room Air Room Air 01/04/17 01/04/17 01/05/17 01/05/17 21:35 23:00 02:56 03:00 Temp 97.5 98.6 97.5 98.6 Pulse 81 72 Resp 20 18 18 B/P 136/55 142/67 Pulse Ox 93 95 99 96 O2 Delivery Room Air Room Air Room Air Room Air 01/05/17 01/05/17 01/05/17 01/05/17 07:00 08:05 11:00 11:27 Temp 97.5 97.5 97.5 97.5 Pulse 80 80 Resp 16 20 B/P 144/76 159/67 Pulse Ox 91 96 90 O2 Delivery Room Air Nasal Cannula BiPAP/CPAP Room Air O2 Flow Rate 2.0 2.0 Intake and Output 01/04/17 01/04/17 01/05/17 15:00 23:00 07:00 Intake Total 120 ml 400 ml Output Total 600 ml 250 ml Balance 120 ml -600 ml 150 ml SERGEY KNOWLES MD Jan 05, 2017 15:03
[2017-01-05] MEDS ORDERED: IOHEXOL 240 MG/ML 50ML VIAL. PO ONE (16:15)
[2017-01-05] MEDS ORDERED: CONTRAST GIVEN MC PRN (16:15)
[2017-01-05] MEDS ORDERED: IOHEXOL 300 MG/ML 75 ML VIAL IV ONE (16:15)
[2017-01-05] MEDS: WARFARIN 4 MG TABLET. PO SCH (18:39)
[2017-01-05] MEDS: IPRATRPIUM/ALBUTEROL 0.5/2.5MG 3 ML NEBU. NEB SCH (19:40)
[2017-01-05] MEDS: BUDESONIDE 0.5 MG/2 ML NEBU. NEB SCH (19:40)
[2017-01-05] MEDS: oxyCODONE/APAP 5/325 1 TAB TABLET PO PRN (20:52)
[2017-01-05] MEDS: POTASSIUM CHLORIDE 20MEQ 50 ML IV SCH ×2 (20:52→23:42)
[2017-01-05] MEDS ORDERED: FUROSEMIDE 20 MG/2 ML VIAL. IVP ONE (22:00)
[2017-01-05] MEDS ORDERED: ALBUTEROL SULFATE 2.5 MG/3 ML NEBU. NEB PRN (22:40)
[2017-01-06] MEDS: ALBUMIN HUMAN 25% 100 ML IV SCH ×2 (02:02→08:53)
[2017-01-06 03:00] VITALS: BP 138/66
[2017-01-06 05:19] LABS: BASO % 0 % (0-3); EOS % 0 % (0-3); HEMATOCRIT 22.1 % (36.0-47.0); HEMOGLOBIN 7.4 g/dL (12.0-15.5); LYMPH # 0.7 x10^3/uL (1.0-4.8); LYMPH % 14 % (24-48); MEAN CORPUSCULAR HEMOGLOBIN 33 pg (25-35); MEAN CORPUSCULAR HGB CONC 34 g/dL (31-37); MEAN CORPUSCULAR VOLUME 98 fL (79-100); MONO % 40 % (0-9); NEUT % 45 % (31-73); PLATELET COUNT 81 x10^3/uL (140-400); RED BLOOD COUNT 2.26 x10^6/uL (3.50-5.40); RED CELL DISTRIBUTION WIDTH 21.8 % (11.5-14.5)
[2017-01-06 05:53] LABS: INR 1.3 (0.8-1.1); PROTHROMBIN TIME PATIENT 15.6 SEC (11.7-14.0)
[2017-01-06] MEDS: PANTOPRAZOLE 40 MG TABLET.DR. PO SCH (06:38)
[2017-01-06 07:00] VITALS: BP 145/78
[2017-01-06] MEDS: BUDESONIDE 0.5 MG/2 ML NEBU. NEB SCH ×2 (07:32→19:44)
[2017-01-06] MEDS: IPRATRPIUM/ALBUTEROL 0.5/2.5MG 3 ML NEBU. NEB SCH ×4 (07:32→19:44)
--- NOTE | 2017-01-06 07:49 | RAD ---
CT chest abdomen pelvis with IV contrast History: Cholangiocarcinoma. Comparison: PET/CT 06/10/2016. Technique: After administration of oral and intravenous contrast, 60 mL Omnipaque 300, helical CT of the chest, abdomen, and pelvis was performed from the lung apices through the ischial tuberosities. One or more of the following individualized dose reduction techniques were utilized for the study: Automated exposure control Adjustment of mA and/or kV according to patient's size Use of iterative reconstruction technique. Findings: Thyroid is symmetric. Small pericardial effusion is seen including extending into the superior pericardial recess. The trachea appears decreased in AP diameter as well as the mainstem bronchi. No convincing mediastinal or hilar lymphadenopathy is seen. Right chest port and left internal jugular dialysis catheter are present. Small left and small-moderate bilateral pleural effusions are seen. There is bilateral septal thickening, most commonly from interstitial edema, although it would be difficult to exclude lymphangitic carcinomatosis. Postsurgical changes are seen involving the liver and stomach. No convincing recurrent hepatic mass is identified. Pancreas is unremarkable. Spleen is unremarkable. Bilateral adrenal glands. Bilateral kidneys enhance symmetrically. Both kidneys demonstrate low-density lesions, not well characterized on this examination. Aortic atherosclerosis present. Urinary bladder is unremarkable. Colonic diverticulosis is noted, but no diverticulitis is appreciated. Moderate to severe body wall edema is present. There is a low-attenuation lymph node seen in the upper abdomen near the stiven hepatis between the common hepatic artery and the main portal vein. The lymph node measures 2.4 x 1.8 cm (on previous study, retrospectively thought to measure about 1.0 x 1.2 cm). Numerous vertebral levels demonstrate marginal disc osteophytes, suggesting DISH. Old L4 and L5 vertebral fractures with height loss are seen. No suspicious osseous lesions are seen. Impression: 1. Bilateral pleural effusions, right larger than left. 2. Bilateral septal thickening. Most likely cause is interstitial edema, although lymphangitic carcinomatosis can give a similar appearance. 3. Interval development of enlarged lymph node in the upper abdomen near the stiven hepatis, worrisome for metastatic lymph node. 4. Postsurgical changes of liver. 5. There is decreased AP diameter of the trachea and mainstem bronchi, raising possibility of tracheobronchomalacia. 6. Body wall edema.
[2017-01-06] MEDS: GABAPENTIN 300 MG CAPSULE. PO SCH ×3 (08:52→20:52)
--- NOTE | 2017-01-06 08:53 | PDOC ---
Infectious Disease Note Subjective Subjective improved Had CT last pm and also PRBCs ROS ROS GEN: Denies fevers, chills, sweats HEENT: Denies blurred vision, sore throat CV: Denies chest pain RESP: Denies shortness of air, cough GI: Denies n/v/d NEURO: Denies confusion, dizziness MSK: Denies weakness, joint pain/swelling Vital Sign Vital Signs Vital Signs Date Time Temp Pulse Resp B/P Pulse Ox O2 Delivery O2 Flow Rate FiO2 01/06/17 07:32 99 Nasal Cannula 2.0 01/06/17 03:00 97.7 80 22 138/66 97.7 Physical Exam PHYSICAL EXAM GENERAL: Propped up in recliner relaxed appearance HEENT: OC/OP clear LUNGS: No wheeze but decreased in bases HEART: S1S2, no gallop, no murmur ABD: Obese, BS present, soft, NT EXT: BLE edema little less. tubigrips in place. some wrinkling and flaking, and medial petechial type rash, fading. A few scabs right posterior/lateral calf. Improved RUE swollen and warm. 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 clean [facility] clean Labs Lab Laboratory Tests Test 01/05/17 13:30 01/06/17 05:00 Heparin Anti-Xa Act, Unfractionated 0.65IU/mL (0.30-0.70) 0.51IU/mL (0.30-0.70) Sodium Level 142mmol/L (136-145) Potassium Level 3.4mmol/L (3.5-5.1) 4.0mmol/L (3.5-5.1) Chloride Level 105mmol/L (98-107) Carbon Dioxide Level 30mmol/L (21-32) Anion Gap 7 (6-14) Blood Urea Nitrogen 14mg/dL (7-20) Creatinine 1.0mg/dL (0.6-1.0) Estimated GFR (Cockcroft-Gault) 55.3 Glucose Level 121mg/dL (70-99) Calcium Level 7.9mg/dL (8.5-10.1) White Blood Count 5.0x10^3/uL (4.0-11.0) Red Blood Count 2.26x10^6/uL (3.50-5.40) Hemoglobin 7.4g/dL (12.0-15.5) Hematocrit 22.1% (36.0-47.0) Mean Corpuscular Volume 98fL (79-100) Mean Corpuscular Hemoglobin 33pg (25-35) Mean Corpuscular Hemoglobin Concent 34g/dL (31-37) Red Cell Distribution Width 21.8% (11.5-14.5) Platelet Count 81x10^3/uL (140-400) Neutrophils (%) (Auto) 45% (31-73) Lymphocytes (%) (Auto) 14% (24-48) Monocytes (%) (Auto) 40% (0-9) Eosinophils (%) (Auto) 0% (0-3) Basophils (%) (Auto) 0% (0-3) Neutrophils # (Auto) 2.3x10^3uL (1.8-7.7) Lymphocytes # (Auto) 0.7x10^3/uL (1.0-4.8) Monocytes # (Auto) 2.0x10^3/uL (0.0-1.1) Eosinophils # (Auto) 0.0x10^3/uL (0.0-0.7) Basophils # (Auto) 0.0x10^3/uL (0.0-0.2) Prothrombin Time 15.6SEC (11.7-14.0) Prothromb Time International Ratio 1.3 (0.8-1.1) Magnesium Level 1.9mg/dL (1.8-2.4) Objective Assessment RUE DVT Right LE cellulitis - better ARTURO and electrolyte abnormalities - better s/p HD Pancytopenia - mild encephalopathy - improved but twitch continues? electrolyte disturbance, ? met Cholangiocarcinoma s/p chemo 12/24 Plan Plan of Care Cont off abx Appreciate Lymphedema eval Awiat Dr. Connell f/u ID to sign off RAHEEM TY MD Jan 06, 2017 08:53
[2017-01-06 10:50] LABS: ALBUMIN 3.8 g/dL (3.4-5.0); CALCIUM 8.1 mg/dL (8.5-10.1); GFR 55.3
--- NOTE | 2017-01-06 10:57 | PDOC ---
SUBJECTIVE ROS ARTURO Doign better x for edema in lower ext CVS: no Orthopnea, no CP RESP: no SOB, no SEGUNDO + Fatigue GI: no Nausea, no Vomiting : no Dysuria, no Urgency OBJECTIVE Vital Signs Vital Signs Date Time Temp Pulse Resp B/P Pulse Ox O2 Delivery O2 Flow Rate FiO2 01/06/17 07:32 99 Nasal Cannula 2.0 01/06/17 07:00 97.7 83 22 145/78 97.7 I & 0 Intake and Output 01/06/17 06:59 Intake Total 1851.18 ml Output Total 750 ml Balance 1101.18 ml Intake Oral 330 ml IV Total 1321.18 ml Blood Product IV Normal Saline Flush 200 ml Output Urine Total 750 ml # Voids 1 # Bowel Movements 1 PHYSICAL EXAM Physical Exam GEN: Awake, Oriented x 3, In no distress EYES: Vision Unchanged, Conjunctiva Normal EN: No EN Drainage, Mucous Membranes moist NECK: no JVD, no JVP, Supple, no Thyromegaly CVS: S1S2, no Murmur, No Gallop, No Rub,+ Edema RESP: no Rales, no Rhonchi,no Acc. Muscle Use GI: BS + ve, NO Bruit, Non Tender, Non Distended : no CVA tenderness, no Suprapubic Tenderness DIAGNOSIS/ASSESSMENT ARF/ ATN : appears to have resolved; I suspect she was severly intravascularly vol deplete despite the external edema she was demonstrating. UO is good after IV Albumin and pRBCs ANEMIA; defer to Dr Ko brumfield to treat in setting of Active Cancer HTN: Current BP meds as reviewed. See orders for changes. Edema - suspect significant cap leak due to Gemzar; IV Alb to get alb to 3.0 + ; may benefit from OT also; resume lasix if needed 48hrs after CT with IVC pain in legs - suspect Xeloda asso neuropahty vs cellulitis - now better H/o CholangioCa - CT with IVC done and noted. SEv HypoALbuminemia - ? due to POOR PO intake vs due to Liver dysfucntion. UA is not suggestive of Neph Syndrome Discussed Plan of Care with family () at bedside at length and will sign off - pl call with Qs COMMENT/RELEVANT DATA Meds Current Medications Medications (Trade) Dose Ordered Sig/Shahab Start Time Stop Time Status Last Admin Dose Admin Acetaminophen (Tylenol) 650 mg PRN Q6HRS PRN 12/28/16 18:15 01/05/17 02:15 650 MG Albumin Human (Albuminar) 100 ml @ 100 mls/hr TID 01/04/17 14:00 01/06/17 09:59 DC 01/06/17 08:53 100 MLS/HR Albumin Human (Plasmanate) 500 ml @ 75 mls/hr Q6H40M 12/31/16 15:15 01/01/17 11:14 DC 01/01/17 03:44 75 MLS/HR Albuterol Sulfate (Ventolin Neb Soln) 2.5 mg PRN Q6HRS PRN 01/05/17 22:40 Albuterol/ Ipratropium (Duoneb) 3 ml RTQID 01/05/17 20:00 01/06/17 07:32 3 ML Budesonide (Pulmicort) 0.5 mg RTBID 01/05/17 20:00 01/06/17 07:32 0.5 MG Calcium Acetate (Phoslo) 1,334 mg TIDWMEALS 12/30/16 12:00 01/04/17 11:03 DC 01/04/17 09:46 1,334 MG Calcium Chloride 2000 mg/Sodium Chloride 120 ml @ 240 mls/hr 1X ONCE 12/28/16 08:00 12/28/16 08:29 DC 12/28/16 08:54 240 MLS/HR Cefpodoxime Proxetil (Vantin) 200 mg BID 01/03/17 21:00 01/05/17 09:37 DC 01/05/17 08:53 200 MG Cetirizine HCl (Zyrtec) 10 mg PRN DAILY PRN 12/28/16 09:00 Cyanocobalamin (Vitamin B-12) 1,000 mcg QMONTH 01/04/17 09:00 01/04/17 09:49 1,000 MCG Diphenhydramine HCl (Benadryl) 25 mg 1X ONCE 12/27/16 08:15 12/27/16 08:22 DC 12/27/16 09:12 25 MG Fentanyl Citrate (Fentanyl 2ml Vial) 25 mcg PRN QID PRN 12/27/16 16:45 12/29/16 21:00 DC Furosemide (Lasix) 20 mg 1X ONCE 01/05/17 22:00 01/05/17 22:01 DC 01/05/17 22:04 20 MG Gabapentin (Neurontin) 300 mg DAILY 12/29/16 09:00 01/03/17 18:21 DC 01/03/17 09:06 300 MG Gabapentin 900 mg 900 mg TID 01/03/17 21:00 01/06/17 08:52 900 MG Heparin Sodium (Porcine) (Heparin Sodium) 1,550 unit PRN Q6HRS PRN 01/02/17 14:45 Heparin Sodium/ Dextrose 500 ml @ 0 mls/hr CONT PRN 01/02/17 14:45 01/05/17 22:50 0 MLS/HR Heparin Sodium/ Sodium Chloride 60 unit 1X ONCE 12/28/16 09:00 12/28/16 09:01 DC 12/28/16 10:11 60 UNIT Info (Do NOT chart on this entry -- for MONITORING) 1 each PRN DAILY PRN 01/05/17 16:15 01/07/17 16:14 Info (PHARMACY MONITORING -- do not chart) 1 each PRN DAILY PRN 12/30/16 08:15 UNV Iohexol (Omnipaque 240 Mg/ml) 30 ml 1X ONCE 01/05/17 16:15 01/05/17 16:16 DC 01/05/17 15:45 30 ML Iohexol (Omnipaque 300 Mg/ml) 60 ml 1X ONCE 01/05/17 16:15 01/05/17 16:16 DC Lidocaine/Sodium Bicarbonate (Buffered Lidocaine 1%) 3 ml 1X ONCE 12/28/16 09:00 12/28/16 09:01 DC 12/28/16 10:10 3 ML Linezolid 300 ml @ 300 mls/hr Q12HR 12/28/16 09:00 12/31/16 10:43 DC 12/31/16 09:13 300 MLS/HR Lisinopril (Prinivil) 10 mg DAILY 12/28/16 09:00 12/28/16 09:00 DC Lorazepam (Ativan) 0.5 mg PRN Q4HRS PRN 12/31/16 09:00 01/01/17 09:43 0.5 MG Magnesium Sulfate/ Dextrose 50 ml @ 25 mls/hr PRN DAILY PRN 01/05/17 11:00 Magnesium Sulfate/ Dextrose (Magnesium Sulfate PREMIX 2GM) 50 ml @ 25 mls/hr PRN DAILY PRN 12/28/16 08:15 01/04/17 09:50 25 MLS/HR Metoclopramide HCl 5 mg 5 mg PRN Q6HRS PRN 12/31/16 11:45 01/01/17 09:42 5 MG Micafungin Sodium 100 mg/Dextrose 100 ml @ 100 mls/hr Q24H 12/28/16 08:00 12/31/16 10:43 DC 12/31/16 09:13 100 MLS/HR Midazolam HCl (Versed) 2 mg STK-MED ONCE 12/28/16 09:41 12/28/16 09:42 DC Ondansetron HCl (Zofran) 8 mg PRN Q6HRS PRN 12/31/16 08:58 01/03/17 08:59 8 MG Oxycodone/ Acetaminophen (Percocet 5/325) 2 tab Q4HRS PRN 12/27/16 16:45 01/04/17 20:35 2 TAB Pantoprazole Sodium (Protonix) 40 mg DAILYAC 12/28/16 07:30 01/06/17 06:38 40 MG Paricalcitol (Zemplar) 5 mcg 3X/WEEK 12/31/16 09:00 01/04/17 11:03 DC 01/03/17 09:06 5 MCG Piperacillin Sod/ Tazobactam Sod (Zosyn Per Pharmacy) 1 each PRN DAILY PRN 12/27/16 17:30 12/28/16 07:27 DC Piperacillin Sod/ Tazobactam Sod 2.25 gm/Sodium Chloride 50 ml @ 100 mls/hr Q8HRS 12/28/16 14:00 01/03/17 13:01 DC 01/03/17 06:04 100 MLS/HR Piperacillin Sod/ Tazobactam Sod 3.375 gm/Sodium Chloride 50 ml @ 100 mls/hr 1X ONCE 12/27/16 18:00 12/27/16 18:29 DC 12/27/16 18:07 100 MLS/HR Potassium Chloride 20 meq 20 meq 1X ONCE 01/03/17 18:45 01/03/17 18:46 DC 01/03/17 18:56 20 MEQ Potassium Chloride 40 meq 40 meq 1X ONCE 01/02/17 13:15 01/02/17 13:16 DC 01/02/17 13:21 40 MEQ Potassium Chloride (KCl Premix 20meq) 50 ml @ 25 mls/hr Q2HR 01/05/17 16:00 01/05/17 19:59 DC 01/05/17 23:42 25 MLS/HR Potassium Chloride (Klor-Con) 40 meq 1X ONCE 01/01/17 12:00 01/01/17 12:01 DC 01/01/17 13:02 40 MEQ Prochlorperazine Edisylate (Compazine) 10 mg PRN Q6HRS PRN 01/01/17 11:45 01/01/17 17:38 10 MG Prochlorperazine Edisylate 10 mg 10 mg 1X ONCE 12/29/16 14:00 12/29/16 14:01 DC 12/29/16 14:00 10 MG Saliva Substitute (Biotene Moisturizing Mouth) 2 spray PRN Q15MIN PRN 12/28/16 13:15 12/31/16 17:53 2 SPRAY Sodium Bicarbonate 50 meq 50 meq Q2H 12/28/16 08:30 12/28/16 10:31 DC 12/28/16 15:33 50 MEQ Sodium Bicarbonate/ Dextrose 1,150 ml @ 100 mls/hr [id number] 12/28/16 09:00 12/30/16 08:59 DC 12/30/16 06:08 100 MLS/HR Sodium Chloride (Iv Sodium Chloride 0.9% 500ml Bag) 500 ml @ 500 mls/hr 1X ONCE 12/30/16 00:00 12/30/16 00:59 DC 12/30/16 00:05 500 MLS/HR Sodium Chloride (Iv Sodium Chloride 0.9% 1000ml Bag) 1,000 ml @ 75 mls/hr [id number] 01/03/17 18:45 01/04/17 11:04 DC 01/04/17 09:46 75 MLS/HR Sodium Chloride (Normal Saline Flush) 10 ml 1X PRN PRN 12/30/16 08:15 12/31/16 08:14 DC Vancomycin HCl 1.5 gm/Sodium Chloride 500 ml @ 250 mls/hr Q48H 12/29/16 20:00 12/29/16 20:00 DC Vancomycin HCl 1 each 1 each PRN DAILY PRN 12/27/16 17:30 12/27/16 18:51 DC 12/27/16 18:45 1 EACH Vancomycin HCl 2 gm/Sodium Chloride 500 ml @ 250 mls/hr 1X ONCE 12/27/16 17:45 12/27/16 18:51 DC Warfarin Sodium (Coumadin - No Dose Today) 1 each 1X WARF ONCE 01/03/17 16:00 01/03/17 23:01 DC Warfarin Sodium (Coumadin Per Pharmacy) 1 each PRN DAILY PRN 01/02/17 14:45 01/03/17 23:01 DC 01/03/17 11:34 1 EACH Warfarin Sodium (Coumadin) 4 mg DAILY16 01/04/17 17:00 01/05/17 18:39 4 MG Warfarin Sodium 1 each 1 each PRN DAILY PRN 01/04/17 17:00 Lab Laboratory Tests Test 01/05/17 13:30 01/06/17 05:00 Heparin Anti-Xa Act, Unfractionated 0.65IU/mL (0.30-0.70) 0.51IU/mL (0.30-0.70) Sodium Level 142mmol/L (136-145) 137mmol/L (136-145) Potassium Level 3.4mmol/L (3.5-5.1) 4.0mmol/L (3.5-5.1) Chloride Level 105mmol/L (98-107) 103mmol/L (98-107) Carbon Dioxide Level 30mmol/L (21-32) 28mmol/L (21-32) Anion Gap 7 (6-14) 6 (6-14) Blood Urea Nitrogen 14mg/dL (7-20) 12mg/dL (7-20) Creatinine 1.0mg/dL (0.6-1.0) 1.0mg/dL (0.6-1.0) Estimated GFR (Cockcroft-Gault) 55.3 55.3 Glucose Level 121mg/dL (70-99) 86mg/dL (70-99) Calcium Level 7.9mg/dL (8.5-10.1) 8.1mg/dL (8.5-10.1) White Blood Count 5.0x10^3/uL (4.0-11.0) Red Blood Count 2.26x10^6/uL (3.50-5.40) Hemoglobin 7.4g/dL (12.0-15.5) Hematocrit 22.1% (36.0-47.0) Mean Corpuscular Volume 98fL (79-100) Mean Corpuscular Hemoglobin 33pg (25-35) Mean Corpuscular Hemoglobin Concent 34g/dL (31-37) Red Cell Distribution Width 21.8% (11.5-14.5) Platelet Count 81x10^3/uL (140-400) Neutrophils (%) (Auto) 45% (31-73) Lymphocytes (%) (Auto) 14% (24-48) Monocytes (%) (Auto) 40% (0-9) Eosinophils (%) (Auto) 0% (0-3) Basophils (%) (Auto) 0% (0-3) Neutrophils # (Auto) 2.3x10^3uL (1.8-7.7) Lymphocytes # (Auto) 0.7x10^3/uL (1.0-4.8) Monocytes # (Auto) 2.0x10^3/uL (0.0-1.1) Eosinophils # (Auto) 0.0x10^3/uL (0.0-0.7) Basophils # (Auto) 0.0x10^3/uL (0.0-0.2) Prothrombin Time 15.6SEC (11.7-14.0) Prothromb Time International Ratio 1.3 (0.8-1.1) Phosphorus Level 3.0mg/dL (2.6-4.7) Magnesium Level 1.9mg/dL (1.8-2.4) Albumin 3.8g/dL (3.4-5.0) DAKOTA VINCENT MD Jan 06, 2017 10:57
[2017-01-06 11:00] VITALS: BP 149/68
--- NOTE | 2017-01-06 11:14 | PDOC ---
PROGRESS NOTES Subjective Subjective c/c - f/u of Cholangiocarcinoma stage 4 ROS - c/o edema Objective Objective Vital Signs Date Time Temp Pulse Resp B/P Pulse Ox O2 Delivery O2 Flow Rate FiO2 01/06/17 11:06 Nasal Cannula 2.0 01/06/17 07:32 99 01/06/17 07:00 97.7 83 22 145/78 97.7 Intake and Output 01/06/17 07:00 Intake Total 1851.18 ml Output Total 750 ml Balance 1101.18 ml Intake Oral 330 ml IV Total 1321.18 ml Blood Product IV Normal Saline Flush 200 ml Output Urine Total 750 ml # Voids 1 # Bowel Movements 1 Physical Exam Heart: Normal S1, Normal S2 General: Alert, Oriented X3 Lungs: Clear to auscultation Neuro: Normal speech Psych/Mental Status: Mental status NL Assessment Assessment Problems Medical Problems: (1) Cellulitis Status: Acute IMPRESSION AND PLAN: 1. Cholangiocarcinoma stage 4. She is on chemotherapy with Gemzar and Xeloda, her last treatment was given on 12/24/2016. I will hold further chemotherapy in view of cellulitis and renal failure and she will follow up with me upon discharge. CT 01/05/[address] 2.4 cm. I agree that she has likely gemzar related toxicities with ARF and edema. 2. Acute renal failure, management per Dr. Kerr. Pt and concerned about persistent edema. Cr now normal. 3. Hypocalcemia. s/p IV calcium. 4. Hypoalbuminemia due to malnutrition from malignancy. 5. Cellulitis. I discussed with Dr. Óscar Thacker. She was started on antibiotics for cellulitis of bilateral lower extremities. She had a venous Doppler of bilateral lower extremities on 12/28/2016 that is negative for DVT. 6. Twitching - resolved. 7. Recurrent LE edema, rash. At [facility] last week was thought to be c/w gemzar- related LE swelling/ capillary leak causing erythema, no signs infxn. Improved with abx. 8. DVT - RUE 01/02/17 - agree with IV heparin, agree with warfarin. 9. Thrombocytopenia - s/p platelet transfusion 01/04/17. Improving. If she is going home on HH, I would recommend HH supervision by her PCP. Comment Review of Relevant I have reviewed the following items ketty (where applicable) has been applied. Labs Laboratory Tests Test 01/04/17 12:12 01/04/17 17:40 01/05/17 06:00 01/05/17 13:30 Potassium Level 3.3mmol/L (3.5-5.1) 3.8mmol/L (3.5-5.1) 3.5mmol/L (3.5-5.1) 3.4mmol/L (3.5-5.1) White Blood Count 4.3x10^3/uL (4.0-11.0) Red Blood Count 1.99x10^6/uL (3.50-5.40) Hemoglobin 6.8g/dL (12.0-15.5) Hematocrit 19.7% (36.0-47.0) Mean Corpuscular Volume 99fL (79-100) Mean Corpuscular Hemoglobin 34pg (25-35) Mean Corpuscular Hemoglobin Concent 35g/dL (31-37) Red Cell Distribution Width 23.3% (11.5-14.5) Platelet Count 55x10^3/uL (140-400) Neutrophils (%) (Auto) 54% (31-73) Lymphocytes (%) (Auto) 15% (24-48) Monocytes (%) (Auto) 31% (0-9) Eosinophils (%) (Auto) 0% (0-3) Basophils (%) (Auto) 0% (0-3) Neutrophils # (Auto) 2.3x10^3uL (1.8-7.7) Lymphocytes # (Auto) 0.6x10^3/uL (1.0-4.8) Monocytes # (Auto) 1.3x10^3/uL (0.0-1.1) Eosinophils # (Auto) 0.0x10^3/uL (0.0-0.7) Basophils # (Auto) 0.0x10^3/uL (0.0-0.2) Prothrombin Time 14.3SEC (11.7-14.0) Prothromb Time International Ratio 1.2 (0.8-1.1) Magnesium Level 1.7mg/dL (1.8-2.4) Heparin Anti-Xa Act, Unfractionated 0.65IU/mL (0.30-0.70) Sodium Level 142mmol/L (136-145) Chloride Level 105mmol/L (98-107) Carbon Dioxide Level 30mmol/L (21-32) Anion Gap 7 (6-14) Blood Urea Nitrogen 14mg/dL (7-20) Creatinine 1.0mg/dL (0.6-1.0) Estimated GFR (Cockcroft-Gault) 55.3 Glucose Level 121mg/dL (70-99) Calcium Level 7.9mg/dL (8.5-10.1) Test 01/06/17 05:00 White Blood Count 5.0x10^3/uL (4.0-11.0) Red Blood Count 2.26x10^6/uL (3.50-5.40) Hemoglobin 7.4g/dL (12.0-15.5) Hematocrit 22.1% (36.0-47.0) Mean Corpuscular Volume 98fL (79-100) Mean Corpuscular Hemoglobin 33pg (25-35) Mean Corpuscular Hemoglobin Concent 34g/dL (31-37) Red Cell Distribution Width 21.8% (11.5-14.5) Platelet Count 81x10^3/uL (140-400) Neutrophils (%) (Auto) 45% (31-73) Lymphocytes (%) (Auto) 14% (24-48) Monocytes (%) (Auto) 40% (0-9) Eosinophils (%) (Auto) 0% (0-3) Basophils (%) (Auto) 0% (0-3) Neutrophils # (Auto) 2.3x10^3uL (1.8-7.7) Lymphocytes # (Auto) 0.7x10^3/uL (1.0-4.8) Monocytes # (Auto) 2.0x10^3/uL (0.0-1.1) Eosinophils # (Auto) 0.0x10^3/uL (0.0-0.7) Basophils # (Auto) 0.0x10^3/uL (0.0-0.2) Prothrombin Time 15.6SEC (11.7-14.0) Prothromb Time International Ratio 1.3 (0.8-1.1) Heparin Anti-Xa Act, Unfractionated 0.51IU/mL (0.30-0.70) Sodium Level 137mmol/L (136-145) Potassium Level 4.0mmol/L (3.5-5.1) Chloride Level 103mmol/L (98-107) Carbon Dioxide Level 28mmol/L (21-32) Anion Gap 6 (6-14) Blood Urea Nitrogen 12mg/dL (7-20) Creatinine 1.0mg/dL (0.6-1.0) Estimated GFR (Cockcroft-Gault) 55.3 Glucose Level 86mg/dL (70-99) Calcium Level 8.1mg/dL (8.5-10.1) Phosphorus Level 3.0mg/dL (2.6-4.7) Magnesium Level 1.9mg/dL (1.8-2.4) Albumin 3.8g/dL (3.4-5.0) Laboratory Tests Test 01/05/17 13:30 01/06/17 05:00 Heparin Anti-Xa Act, Unfractionated 0.65IU/mL (0.30-0.70) 0.51IU/mL (0.30-0.70) Sodium Level 142mmol/L (136-145) 137mmol/L (136-145) Potassium Level 3.4mmol/L (3.5-5.1) 4.0mmol/L (3.5-5.1) Chloride Level 105mmol/L (98-107) 103mmol/L (98-107) Carbon Dioxide Level 30mmol/L (21-32) 28mmol/L (21-32) Anion Gap 7 (6-14) 6 (6-14) Blood Urea Nitrogen 14mg/dL (7-20) 12mg/dL (7-20) Creatinine 1.0mg/dL (0.6-1.0) 1.0mg/dL (0.6-1.0) Estimated GFR (Cockcroft-Gault) 55.3 55.3 Glucose Level 121mg/dL (70-99) 86mg/dL (70-99) Calcium Level 7.9mg/dL (8.5-10.1) 8.1mg/dL (8.5-10.1) White Blood Count 5.0x10^3/uL (4.0-11.0) Red Blood Count 2.26x10^6/uL (3.50-5.40) Hemoglobin 7.4g/dL (12.0-15.5) Hematocrit 22.1% (36.0-47.0) Mean Corpuscular Volume 98fL (79-100) Mean Corpuscular Hemoglobin 33pg (25-35) Mean Corpuscular Hemoglobin Concent 34g/dL (31-37) Red Cell Distribution Width 21.8% (11.5-14.5) Platelet Count 81x10^3/uL (140-400) Neutrophils (%) (Auto) 45% (31-73) Lymphocytes (%) (Auto) 14% (24-48) Monocytes (%) (Auto) 40% (0-9) Eosinophils (%) (Auto) 0% (0-3) Basophils (%) (Auto) 0% (0-3) Neutrophils # (Auto) 2.3x10^3uL (1.8-7.7) Lymphocytes # (Auto) 0.7x10^3/uL (1.0-4.8) Monocytes # (Auto) 2.0x10^3/uL (0.0-1.1) Eosinophils # (Auto) 0.0x10^3/uL (0.0-0.7) Basophils # (Auto) 0.0x10^3/uL (0.0-0.2) Prothrombin Time 15.6SEC (11.7-14.0) Prothromb Time International Ratio 1.3 (0.8-1.1) Phosphorus Level 3.0mg/dL (2.6-4.7) Magnesium Level 1.9mg/dL (1.8-2.4) Albumin 3.8g/dL (3.4-5.0) Microbiology 12/27/16 Blood Culture - Final, Complete NO GROWTH AFTER 5 DAYS 12/31/16 Urine Culture - Final, Complete 12/31/16 Urine Culture Result 1 (MANE) - Final, Complete Medications Current Medications Acetaminophen (Tylenol) 650 mg 1X ONCE PO Last administered on 12/27/16t 09:11 ; Start 12/27/16 at 08:15; Stop 12/27/16 at 08:22; Status DC Diphenhydramine HCl (Benadryl) 25 mg 1X ONCE PO Last administered on 09:12; Start 12/27/16 at 08:15; Stop 12/27/16 at 08:22; Status DC Furosemide (Lasix) 20 mg 1X ONCE IVP ; Start 12/27/16 at 08:15; Stop 12/27/16 at 08:22; Status DC Fentanyl Citrate (Fentanyl 2ml Vial) 25 mcg PRN QID PRN IV PAIN; Start at 16:45; Stop 12/29/16 at 21:00; Status DC Lisinopril (Prinivil) 10 mg DAILY PO ; Start 12/28/16 at 09:00; Stop 12/28/16 at 09:00; Status DC Oxycodone/ Acetaminophen (Percocet 5/325) 1 tab Q4HRS PRN PO MILD/MODERATE PAIN Last administered on 01/05/17 20:52; Start 12/27/16 at 16:45 Gabapentin (Neurontin) 300 mg TID PO Last administered on 12/28/16 10:44; Start 12/27/16 at 21:00; Stop 12/28/16 at 15:23; Status DC Cetirizine HCl (Zyrtec) 10 mg PRN DAILY PRN PO ALLERGIES; Start 12/28/16 at 09: 00 Pantoprazole Sodium (Protonix) 40 mg DAILYAC PO Last administered on 01/06/17 06:38; Start 12/28/16 at 07:30 Oxycodone/ Acetaminophen 2 tab 2 tab Q4HRS PRN PO SEVERE PAIN Last administered on 01/04/17 20:35; Start 12/27/16 at 16:45 Sodium Chloride (Iv Sodium Chloride 0.9% 1000ml Bag) 1,000 ml @ 75 mls/hr [id number] IV Last administered on 12/28/16 07:12; Start 12/27/16 at 17:30; Stop 12/28/16 at 08:15; Status DC Piperacillin Sod/ Tazobactam Sod (Zosyn Per Pharmacy) 1 each PRN DAILY PRN MC SEE COMMENTS; Start 12/27/16 at 17:30; Stop 12/28/16 at 07:27; Status DC Vancomycin HCl 1 each 1 each PRN DAILY PRN MC SEE COMMENTS Last administered on 12/27/16 18:45; Start 12/27/16 at 17:30; Stop 12/27/16 at 18:51; Status DC Vancomycin HCl 2 gm/Sodium Chloride 500 ml @ 250 mls/hr 1X ONCE IV ; Start at 17:45; Stop 12/27/16 at 18:51; Status DC Piperacillin Sod/ Tazobactam Sod 3.375 gm/Sodium Chloride 50 ml @ 100 mls/hr 1X ONCE IV Last administered on 12/27/16 18:07; Start 12/27/16 at 18:00; Stop 12/27/16 at 18:29; Status DC Piperacillin Sod/ Tazobactam Sod 2.25 gm/Sodium Chloride 50 ml @ 100 mls/hr Q6HRS IV Last administered on 12/28/16 06:08; Start 12/28/16 at 00:00; Stop at 07:31; Status DC Vancomycin HCl 1.5 gm/Sodium Chloride 500 ml @ 250 mls/hr Q48H IV ; Start 12/29 at 20:00; Stop 12/29/16 at 20:00; Status DC Micafungin Sodium 100 mg/Dextrose 100 ml @ 100 mls/hr Q24H IV Last administered on 12/31/16 09:13; Start 12/28/16 at 08:00; Stop 12/31/16 at 10:43 ; Status DC Linezolid 300 ml @ 300 mls/hr Q12HR IV Last administered on 12/31/16 09:13; Start 12/28/16 at 09:00; Stop 12/31/16 at 10:43; Status DC Piperacillin Sod/ Tazobactam Sod 2.25 gm/Sodium Chloride 50 ml @ 100 mls/hr Q8HRS IV Last administered on 01/03/17 06:04; Start 12/28/16 at 14:00; Stop at 13:01; Status DC Calcium Chloride 2000 mg/Sodium Chloride 120 ml @ 240 mls/hr 1X ONCE IV Last administered on 12/28/16 08:54; Start 12/28/16 at 08:00; Stop 12/28/16 at 08:29 ; Status DC Magnesium Sulfate/ Dextrose (Magnesium Sulfate PREMIX 2GM) 50 ml @ 25 mls/hr PRN DAILY PRN IV for Mag < 1.7 on am labs Last administered on 01/04/17 09:50 ; Start 12/28/16 at 08:15 Sodium Bicarbonate 50 meq 50 meq Q2H IV Last administered on 12/28/16 15:33; Start 12/28/16 at 08:30; Stop 12/28/16 at 10:31; Status DC Sodium Chloride 500 ml @ 0 mls/hr PRN QID PRN IV UO< 30cc/hr over previous 6hrs ; Start 12/28/16 at 08:15; Stop 01/03/17 at 18:34; Status DC Sodium Bicarbonate/ Dextrose 1,150 ml @ 100 mls/hr [id number] IV Last administered on 12/30/16 06:08; Start 12/28/16 at 09:00; Stop 12/30/16 at 08:59 ; Status DC Heparin Sodium (Porcine) (Heparin Sodium) 10,000 unit STK-MED ONCE .ROUTE ; Start 12/28/16 at 08:46; Stop 12/28/16 at 08:47; Status DC Lidocaine/Sodium Bicarbonate 20 ml 20 ml STK-MED ONCE IJ ; Start 12/28/16 at 08: 47; Stop 12/28/16 at 08:48; Status DC Heparin Sodium/ Sodium Chloride 500 ml @ As Directed STK-MED ONCE .ROUTE ; Start 12/28/16 at 08:47; Stop 12/28/16 at 08:48; Status DC Lidocaine/Sodium Bicarbonate (Buffered Lidocaine 1%) 3 ml 1X ONCE IJ Last administered on 12/28/16 10:10; Start 12/28/16 at 09:00; Stop 12/28/16 at 09:01 ; Status DC Heparin Sodium/ Sodium Chloride 60 unit 1X ONCE IV Last administered on 10:11; Start 12/28/16 at 09:00; Stop 12/28/16 at 09:01; Status DC Heparin Sodium (Porcine) (Heparin Sodium) 2,500 unit 1X ONCE INT CAT Last administered on 12/28/16 10:10; Start 12/28/16 at 09:00; Stop 12/28/16 at 09:01 ; Status DC Midazolam HCl (Versed) 2 mg STK-MED ONCE .ROUTE ; Start 12/28/16 at 09:41; Stop 12/28/16 at 09:42; Status DC Saliva Substitute (Biotene Moisturizing Mouth) 2 spray PRN Q15MIN PRN PO DRY MOUTH Last administered on 12/31/16 17:53; Start 12/28/16 at 13:15 Gabapentin (Neurontin) 300 mg DAILY PO Last administered on 01/03/17 09:06; Start 12/29/16 at 09:00; Stop 01/03/17 at 18:21; Status DC Acetaminophen (Tylenol) 650 mg PRN Q6HRS PRN PO MILD PAIN Last administered on 01/05/17 02:15; Start 12/28/16 at 18:15 Ondansetron HCl (Zofran) 4 mg PRN Q6HRS PRN IV NAUSEA/VOMITING Last administered on 12/29/16 11:10; Start 12/29/16 at 10:45; Stop 12/29/16 at 13:53 ; Status DC Ondansetron HCl (Zofran) 8 mg PRN Q8HRS PRN IV NAUSEA/VOMITING Last administered on 12/31/16 03:35; Start 12/29/16 at 14:00; Stop 12/31/16 at 09:03 ; Status DC Prochlorperazine Edisylate 10 mg 10 mg 1X ONCE IV Last administered on 14:00; Start 12/29/16 at 14:00; Stop 12/29/16 at 14:01; Status DC Sodium Chloride 500 ml @ 500 mls/hr 1X ONCE IV Last administered on 23:20; Start 12/29/16 at 23:30; Stop 12/30/16 at 00:29; Status DC Sodium Chloride 500 ml @ 500 mls/hr 1X ONCE IV Last administered on 00:05; Start 12/30/16 at 00:00; Stop 12/30/16 at 00:59; Status DC Sodium Chloride 1,000 ml @ 1,000 mls/hr Q1H PRN IV hypotension; Start 12/30/16 at 08:03; Stop 12/30/16 at 14:02; Status DC Albumin Human (Albuminar) 200 ml @ 200 mls/hr 1X PRN PRN IV Hypotension Last administered on 12/30/16 09:22; Start 12/30/16 at 08:15; Stop 12/30/16 at 14:14 ; Status DC Sodium Chloride (Normal Saline Flush) 10 ml 1X PRN PRN IV AP catheter pack; Start 12/30/16 at 08:15; Stop 12/31/16 at 08:14; Status DC Sodium Chloride (Normal Saline Flush) 10 ml 1X PRN PRN IV [employer] catheter pack; Start 12/30/16 at 08:15; Stop 12/31/16 at 08:14; Status DC Info (PHARMACY MONITORING -- do not chart) 1 each PRN DAILY PRN MC SEE COMMENTS ; Start 12/30/16 at 08:15 Info (PHARMACY MONITORING -- do not chart) 1 each PRN DAILY PRN MC SEE COMMENTS ; Start 12/30/16 at 08:15; Status UNV Paricalcitol (Zemplar) 5 mcg 3X/WEEK IV Last administered on 01/03/17 09:06; Start 12/31/16 at 09:00; Stop 01/04/17 at 11:03; Status DC Calcium Acetate 1334 mg 1,334 mg TIDWMEALS PO Last administered on 01/04/17 09 :46; Start 12/30/16 at 12:00; Stop 01/04/17 at 11:03; Status DC Albumin Human (Plasmanate) 500 ml @ 120 mls/hr Q4HRS IV Last administered on 16:45; Start 12/30/16 at 12:00; Stop 12/30/16 at 19:59; Status DC Ondansetron HCl (Zofran) 8 mg PRN Q6HRS PRN IV NAUSEA/VOMITING, 2ND CHOICE Last administered on 01/03/17 08:59; Start 12/31/16 at 08:58 Lorazepam (Ativan) 0.5 mg PRN Q4HRS PRN IV ANXIETY / AGITATION Last administered on 01/01/17 09:43; Start 12/31/16 at 09:00 Prochlorperazine Edisylate (Compazine) 10 mg PRN Q6HRS PRN IM NAUSEA/VOMITING Last administered on 12/31/16 09:15; Start 12/31/16 at 09:00; Stop 01/01/17 at 11:48; Status DC Metoclopramide HCl 5 mg 5 mg PRN Q6HRS PRN IV NAUSEA/VOMITING, 1ST CHOICE Last administered on 01/01/17 09:42; Start 12/31/16 at 11:45 Magnesium Sulfate/ Dextrose 50 ml @ 25 mls/hr 1X ONCE IV Last administered on 12/31/16 17:54; Start 12/31/16 at 15:00; Stop 12/31/16 at 16:59; Status DC Albumin Human (Plasmanate) 500 ml @ 75 mls/hr Q6H40M IV Last administered on 03:44; Start 12/31/16 at 15:15; Stop 01/01/17 at 11:14; Status DC Prochlorperazine Edisylate (Compazine) 10 mg PRN Q6HRS PRN IV NAUSEA/VOMITING, 3RD CHOICE Last administered on 01/01/17 17:38; Start 01/01/17 at 11:45 Potassium Chloride (Klor-Con) 40 meq 1X ONCE PO Last administered on 13:02; Start 01/01/17 at 12:00; Stop 01/01/17 at 12:01; Status DC Furosemide (Lasix) 40 mg 1X ONCE IVP Last administered on 01/01/17 14:24; Start 01/01/17 at 14:00; Stop 01/01/17 at 14:01; Status DC Albuterol/ Ipratropium (Duoneb) 3 ml PRN Q6HRS PRN NEB SHORTNESS OF BREATH Last administered on 01/05/17 11:26; Start 01/01/17 at 13:45; Stop 01/05/17 at 22:40; Status DC Furosemide (Lasix) 40 mg 1X ONCE IVP Last administered on 01/02/17 11:43; Start 01/02/17 at 10:45; Stop 01/02/17 at 10:46; Status DC Potassium Chloride 40 meq 40 meq 1X ONCE PO Last administered on 01/02/17 13: 21; Start 01/02/17 at 13:15; Stop 01/02/17 at 13:16; Status DC Heparin Sodium/ Dextrose 500 ml @ 0 mls/hr CONT PRN IV SEE I/O RECORD Last administered on 01/05/17 22:50; Start 01/02/17 at 14:45 Heparin Sodium (Porcine) (Heparin Sodium) 3,150 unit PRN Q6HRS PRN IV FOR UFH LEVEL LESS THAN 0.2; Start 01/02/17 at 14:45 Heparin Sodium (Porcine) (Heparin Sodium) 1,550 unit PRN Q6HRS PRN IV FOR UFH LEVEL 0.2 - 0.29; Start 01/02/17 at 14:45 Warfarin Sodium (Coumadin Per Pharmacy) 1 each PRN DAILY PRN MC PER PROTOCOL Last administered on 01/03/17 11:34; Start 01/02/17 at 14:45; Stop 01/03/17 at 23:01; Status DC Warfarin Sodium (Coumadin) 5 mg 1X WARF ONCE PO Last administered on 17:41; Start 01/02/17 at 16:00; Stop 01/02/17 at 16:01; Status DC Warfarin Sodium (Coumadin - No Dose Today) 1 each 1X WARF ONCE MC ; Start 01/03 at 16:00; Stop 01/03/17 at 23:01; Status DC Cefpodoxime Proxetil (Vantin) 200 mg BID PO Last administered on 01/05/17 08: 53; Start 01/03/17 at 21:00; Stop 01/05/17 at 09:37; Status DC Cyanocobalamin (Vitamin B-12) 1,000 mcg QMONTH IM Last administered on 09:49; Start 01/04/17 at 09:00 Gabapentin 900 mg 900 mg TID PO Last administered on 01/06/17 08:52; Start at 21:00 Sodium Chloride (Iv Sodium Chloride 0.9% 1000ml Bag) 1,000 ml @ 75 mls/hr [id number] IV Last administered on 01/04/17 09:46; Start 01/03/17 at 18:45; Stop 01/04/17 at 11:04; Status DC Potassium Chloride 20 meq 20 meq 1X ONCE PO Last administered on 01/03/17 18: 56; Start 01/03/17 at 18:45; Stop 01/03/17 at 18:46; Status DC Magnesium Sulfate/ Dextrose 50 ml @ 25 mls/hr PRN DAILY PRN IV for Mag < 1.7 on am labs; Start 01/04/17 at 10:45; Status UNV Potassium Chloride 50 ml @ 50 mls/hr PRN Q6HRS PRN IV For K < 3.7 Last administered on 01/05/17 13:10; Start 01/04/17 at 10:45 Potassium Chloride 50 ml @ 50 mls/hr PRN Q2HR PRN IV total of 40mEq for K < 3.5 Last administered on 01/04/17 13:46; Start 01/04/17 at 10:45 Albumin Human (Albuminar) 100 ml @ 100 mls/hr TID IV Last administered on 01/06 08:53; Start 01/04/17 at 14:00; Stop 01/06/17 at 09:59; Status DC Warfarin Sodium (Coumadin) 4 mg DAILY16 PO Last administered on 01/05/17 18:39 ; Start 01/04/17 at 17:00 Warfarin Sodium 1 each 1 each PRN DAILY PRN MC SEE COMMENTS; Start 01/04/17 at 17:00 Magnesium Sulfate/ Dextrose 100 ml @ 100 mls/hr 1X ONCE IV Last administered on 01/05/17 11:35; Start 01/05/17 at 11:00; Stop 01/05/17 at 11:59; Status DC Magnesium Sulfate/ Dextrose 50 ml @ 25 mls/hr PRN DAILY PRN IV for Mag < 1.7 on am labs; Start 01/05/17 at 11:00 Potassium Chloride (KCl Premix 20meq) 50 ml @ 25 mls/hr Q2HR IV Last administered on 01/05/17 23:42; Start 01/05/17 at 16:00; Stop 01/05/17 at 19:59 ; Status DC Iohexol (Omnipaque 300 Mg/ml) 60 ml 1X ONCE IV ; Start 01/05/17 at 16:15; Stop 01/05/17 at 16:16; Status DC Iohexol (Omnipaque 240 Mg/ml) 30 ml 1X ONCE PO Last administered on 01/05/17 15:45; Start 01/05/17 at 16:15; Stop 01/05/17 at 16:16; Status DC Info (Do NOT chart on this entry -- for MONITORING) 1 each PRN DAILY PRN MC SEE COMMENTS; Start 01/05/17 at 16:15; Stop 01/07/17 at 16:14 Albuterol/ Ipratropium (Duoneb) 3 ml RTQID NEB Last administered on 01/06/17 11:06; Start 01/05/17 at 20:00 Budesonide (Pulmicort) 0.5 mg RTBID NEB Last administered on 01/06/17 07:32; Start 01/05/17 at 20:00 Furosemide (Lasix) 20 mg 1X ONCE IVP Last administered on 01/05/17 22:04; Start 01/05/17 at 22:00; Stop 01/05/17 at 22:01; Status DC Albuterol Sulfate (Ventolin Neb Soln) 2.5 mg PRN Q6HRS PRN NEB SHORTNESS OF BREATH; Start 01/05/17 at 22:40 Active Scripts Active Reported Gabapentin 300 Mg Capsule 900 Mg PO TID Claritin (Loratadine) 10 Mg Tablet 1 Tab PO DAILY PRN Bactrim 400-80 Mg Tablet (Sulfamethoxazole/Trimethoprim) 1 Each Tablet 1 Tab PO BID Gabapentin 300 Mg Capsule 300 Mg PO TID Zestril (Lisinopril) 10 Mg Tablet 10 Mg PO DAILY Cyanocobalamin Injection (Cyanocobalamin (Vitamin B-12)) 1,000 Mcg/1 Ml Vial 1, 000 Mcg QMONTH Percocet 5-325 Mg Tablet (Oxycodone/Acetaminophen) 1 Each Tablet 1-2 Tab PO Q4- 6HRS Prilosec Otc (Omeprazole Magnesium) 20 Mg Tablet.dr 20 Mg PO DAILY Vitals/I & O Vital Sign - Last 24 Hours 01/05/17 01/05/17 01/05/17 01/05/17 11:27 15:00 18:06 18:34 Temp 97.5 97.7 97.2 97.5 97.7 97.2 Pulse 77 89 84 Resp 18 18 18 B/P 148/65 165/75 155/66 Pulse Ox 90 98 O2 Delivery Room Air Room Air 01/05/17 01/05/17 01/05/17 01/05/17 19:00 19:35 19:35 19:42 Temp 97.9 97.9 97.9 97.9 Pulse 85 85 Resp 18 B/P 147/69 147/69 Pulse Ox 98 98 O2 Delivery Nasal Cannula Nasal Cannula Nasal Cannula O2 Flow Rate 2.0 2.0 2.0 01/05/17 01/05/17 01/05/17 01/05/17 19:43 20:30 20:35 20:52 Temp 97.7 97.7 97.7 97.7 Pulse 79 79 Resp B/P 149/71 149/71 Pulse Ox 98 98 98 O2 Delivery Nasal Cannula Nasal Cannula Nasal Cannula O2 Flow Rate 2.0 2.0 2.0 01/05/17 01/05/17 01/05/17 01/06/17 21:35 21:55 23:00 03:00 Temp 97.5 97.5 97.7 97.5 97.5 97.7 Pulse 87 82 80 Resp B/P 140/72 110/68 138/66 Pulse Ox 96 96 96 96 O2 Delivery Nasal Cannula Nasal Cannula Nasal Cannula Nasal Cannula O2 Flow Rate 2.0 2.0 3.0 3.0 01/06/17 01/06/17 01/06/17 07:00 07:32 11:06 Temp 97.7 97.7 Pulse 83 Resp B/P 145/78 Pulse Ox 97 99 O2 Delivery Room Air Nasal Cannula Nasal Cannula O2 Flow Rate 2.0 2.0 Intake and Output 01/05/17 01/05/17 01/06/17 15:00 23:00 07:00 Intake Total 280 ml 200 ml 1371.18 ml Output Total 750 ml Balance 280 ml 200 ml 621.18 ml LEITCIA TREVINO MD Jan 06, 2017 11:14
--- NOTE | 2017-01-06 14:15 | PDOC ---
PROGRESS NOTES Chief Complaint Chief Complaint LE erythema and edema Acute metabolic encephalopathy ASSESSMENT AND PLAN: 1. Cellulitis B LE vs Gemzar/hypoalbuminemia ASE: on empiric Abx as per ID service. US LE 12/28 neg for DVT. 2. ARTURO: oliguric ATN/ Gap metabolic acidosis. 2/2 gemzar. appreciate nephrology help w/ management 3. LE edema, bilat: suspect due to hypoalbuminemia, renal issues. d/w Dr Kerr: trial of lasix with IV albumin 4. Hyperkalemia, hypokalemia: replete as indicated. 5. Hypomagnesemia: resolved 6. Hypocalcemia. s/p IV calcium. twitching resolved 7. R UE DVT at IJ: heparin, no coumadin until plts >50K 8. Thrombocytopenia - plan platelet transfusion. 9. Cholangiocarcinoma STAGE 4: chemo currently on hold. F/U w/Dr Connell on O/P basis 10. Peripheral neuropathy: poss 2/ chemo. on gabapentin, B12 11. Pancytopenia: /2 chemo 12. N/V, diarrhea with chemo: none here 13. GERD: on PPI 14. Hypoalbuminemia: due to malnutrition, malignancy. protein supplements History of Present Illness History of Present Illness feels well, she is frustrated with slow improvement, weight still up , no GI c/o, but still concerned about leg swelling s/p transfusion Vitals Vitals Vital Signs Date Time Temp Pulse Resp B/P Pulse Ox O2 Delivery O2 Flow Rate FiO2 01/06/17 11:06 Nasal Cannula 2.0 01/06/17 11:00 97.7 79 20 149/68 97 97.7 Physical Exam General: Alert, Oriented X3 Heart: Normal S1, Normal S2 Lungs: Clear, Crackles, Other Abdomen: Normal bowel sounds, Soft, No tenderness Extremities: Other (2+ edema Bilateral LE unchanged. right upper EXT edema ) Skin: Other (erythema improving) Labs LABS Laboratory Tests Test 01/06/17 05:00 01/06/17 12:00 White Blood Count 5.0x10^3/uL (4.0-11.0) Red Blood Count 2.26x10^6/uL (3.50-5.40) Hemoglobin 7.4g/dL (12.0-15.5) Hematocrit 22.1% (36.0-47.0) Mean Corpuscular Volume 98fL (79-100) Mean Corpuscular Hemoglobin 33pg (25-35) Mean Corpuscular Hemoglobin Concent 34g/dL (31-37) Red Cell Distribution Width 21.8% (11.5-14.5) Platelet Count 81x10^3/uL (140-400) Neutrophils (%) (Auto) 45% (31-73) Lymphocytes (%) (Auto) 14% (24-48) Monocytes (%) (Auto) 40% (0-9) Eosinophils (%) (Auto) 0% (0-3) Basophils (%) (Auto) 0% (0-3) Neutrophils # (Auto) 2.3x10^3uL (1.8-7.7) Lymphocytes # (Auto) 0.7x10^3/uL (1.0-4.8) Monocytes # (Auto) 2.0x10^3/uL (0.0-1.1) Eosinophils # (Auto) 0.0x10^3/uL (0.0-0.7) Basophils # (Auto) 0.0x10^3/uL (0.0-0.2) Prothrombin Time 15.6SEC (11.7-14.0) Prothromb Time International Ratio 1.3 (0.8-1.1) Heparin Anti-Xa Act, Unfractionated 0.51IU/mL (0.30-0.70) Sodium Level 137mmol/L (136-145) Potassium Level 4.0mmol/L (3.5-5.1) 3.9mmol/L (3.5-5.1) Chloride Level 103mmol/L (98-107) Carbon Dioxide Level 28mmol/L (21-32) Anion Gap 6 (6-14) Blood Urea Nitrogen 12mg/dL (7-20) Creatinine 1.0mg/dL (0.6-1.0) Estimated GFR (Cockcroft-Gault) 55.3 Glucose Level 86mg/dL (70-99) Calcium Level 8.1mg/dL (8.5-10.1) Phosphorus Level 3.0mg/dL (2.6-4.7) Magnesium Level 1.9mg/dL (1.8-2.4) Albumin 3.8g/dL (3.4-5.0) Assessment and Plan Assessmemt and Plan try to DC tomorrow with home health if improved Problems Medical Problems: (1) Cellulitis Status: Acute Problems: Comment Review of Relevant I have reviewed the following items ketty (where applicable) has been applied. Labs Laboratory Tests Test 01/04/17 17:40 01/05/17 06:00 01/05/17 13:30 01/06/17 05:00 Potassium Level 3.8mmol/L (3.5-5.1) 3.5mmol/L (3.5-5.1) 3.4mmol/L (3.5-5.1) 4.0mmol/L (3.5-5.1) White Blood Count 4.3x10^3/uL (4.0-11.0) 5.0x10^3/uL (4.0-11.0) Red Blood Count 1.99x10^6/uL (3.50-5.40) 2.26x10^6/uL (3.50-5.40) Hemoglobin 6.8g/dL (12.0-15.5) 7.4g/dL (12.0-15.5) Hematocrit 19.7% (36.0-47.0) 22.1% (36.0-47.0) Mean Corpuscular Volume 99fL (79-100) 98fL (79-100) Mean Corpuscular Hemoglobin 34pg (25-35) 33pg (25-35) Mean Corpuscular Hemoglobin Concent 35g/dL (31-37) 34g/dL (31-37) Red Cell Distribution Width 23.3% (11.5-14.5) 21.8% (11.5-14.5) Platelet Count 55x10^3/uL (140-400) 81x10^3/uL (140-400) Neutrophils (%) (Auto) 54% (31-73) 45% (31-73) Lymphocytes (%) (Auto) 15% (24-48) 14% (24-48) Monocytes (%) (Auto) 31% (0-9) 40% (0-9) Eosinophils (%) (Auto) 0% (0-3) 0% (0-3) Basophils (%) (Auto) 0% (0-3) 0% (0-3) Neutrophils # (Auto) 2.3x10^3uL (1.8-7.7) 2.3x10^3uL (1.8-7.7) Lymphocytes # (Auto) 0.6x10^3/uL (1.0-4.8) 0.7x10^3/uL (1.0-4.8) Monocytes # (Auto) 1.3x10^3/uL (0.0-1.1) 2.0x10^3/uL (0.0-1.1) Eosinophils # (Auto) 0.0x10^3/uL (0.0-0.7) 0.0x10^3/uL (0.0-0.7) Basophils # (Auto) 0.0x10^3/uL (0.0-0.2) 0.0x10^3/uL (0.0-0.2) Prothrombin Time 14.3SEC (11.7-14.0) 15.6SEC (11.7-14.0) Prothromb Time International Ratio 1.2 (0.8-1.1) 1.3 (0.8-1.1) Magnesium Level 1.7mg/dL (1.8-2.4) 1.9mg/dL (1.8-2.4) Heparin Anti-Xa Act, Unfractionated 0.65IU/mL (0.30-0.70) 0.51IU/mL (0.30-0.70) Sodium Level 142mmol/L (136-145) 137mmol/L (136-145) Chloride Level 105mmol/L (98-107) 103mmol/L (98-107) Carbon Dioxide Level 30mmol/L (21-32) 28mmol/L (21-32) Anion Gap 7 (6-14) 6 (6-14) Blood Urea Nitrogen 14mg/dL (7-20) 12mg/dL (7-20) Creatinine 1.0mg/dL (0.6-1.0) 1.0mg/dL (0.6-1.0) Estimated GFR (Cockcroft-Gault) 55.3 55.3 Glucose Level 121mg/dL (70-99) 86mg/dL (70-99) Calcium Level 7.9mg/dL (8.5-10.1) 8.1mg/dL (8.5-10.1) Phosphorus Level 3.0mg/dL (2.6-4.7) Albumin 3.8g/dL (3.4-5.0) Test 01/06/17 12:00 Potassium Level 3.9mmol/L (3.5-5.1) Laboratory Tests Test 01/06/17 05:00 01/06/17 12:00 White Blood Count 5.0x10^3/uL (4.0-11.0) Red Blood Count 2.26x10^6/uL (3.50-5.40) Hemoglobin 7.4g/dL (12.0-15.5) Hematocrit 22.1% (36.0-47.0) Mean Corpuscular Volume 98fL (79-100) Mean Corpuscular Hemoglobin 33pg (25-35) Mean Corpuscular Hemoglobin Concent 34g/dL (31-37) Red Cell Distribution Width 21.8% (11.5-14.5) Platelet Count 81x10^3/uL (140-400) Neutrophils (%) (Auto) 45% (31-73) Lymphocytes (%) (Auto) 14% (24-48) Monocytes (%) (Auto) 40% (0-9) Eosinophils (%) (Auto) 0% (0-3) Basophils (%) (Auto) 0% (0-3) Neutrophils # (Auto) 2.3x10^3uL (1.8-7.7) Lymphocytes # (Auto) 0.7x10^3/uL (1.0-4.8) Monocytes # (Auto) 2.0x10^3/uL (0.0-1.1) Eosinophils # (Auto) 0.0x10^3/uL (0.0-0.7) Basophils # (Auto) 0.0x10^3/uL (0.0-0.2) Prothrombin Time 15.6SEC (11.7-14.0) Prothromb Time International Ratio 1.3 (0.8-1.1) Heparin Anti-Xa Act, Unfractionated 0.51IU/mL (0.30-0.70) Sodium Level 137mmol/L (136-145) Potassium Level 4.0mmol/L (3.5-5.1) 3.9mmol/L (3.5-5.1) Chloride Level 103mmol/L (98-107) Carbon Dioxide Level 28mmol/L (21-32) Anion Gap 6 (6-14) Blood Urea Nitrogen 12mg/dL (7-20) Creatinine 1.0mg/dL (0.6-1.0) Estimated GFR (Cockcroft-Gault) 55.3 Glucose Level 86mg/dL (70-99) Calcium Level 8.1mg/dL (8.5-10.1) Phosphorus Level 3.0mg/dL (2.6-4.7) Magnesium Level 1.9mg/dL (1.8-2.4) Albumin 3.8g/dL (3.4-5.0) Microbiology 12/27/16 Blood Culture - Final, Complete NO GROWTH AFTER 5 DAYS 12/31/16 Urine Culture - Final, Complete 12/31/16 Urine Culture Result 1 (MANE) - Final, Complete Medications Current Medications Acetaminophen (Tylenol) 650 mg 1X ONCE PO Last administered on 12/27/16 09:11 ; Start 12/27/16 at 08:15; Stop 12/27/16 at 08:22; Status DC Diphenhydramine HCl (Benadryl) 25 mg 1X ONCE PO Last administered on 09:12; Start 12/27/16 at 08:15; Stop 12/27/16 at 08:22; Status DC Furosemide (Lasix) 20 mg 1X ONCE IVP ; Start 12/27/16 at 08:15; Stop 12/27/16 at 08:22; Status DC Fentanyl Citrate (Fentanyl 2ml Vial) 25 mcg PRN QID PRN IV PAIN; Start at 16:45; Stop 12/29/16 at 21:00; Status DC Lisinopril (Prinivil) 10 mg DAILY PO ; Start 12/28/16 at 09:00; Stop 12/28/16 at 09:00; Status DC Oxycodone/ Acetaminophen (Percocet 5/325) 1 tab Q4HRS PRN PO MILD/MODERATE PAIN Last administered on 01/05/17 20:52; Start 12/27/16 at 16:45 Gabapentin (Neurontin) 300 mg TID PO Last administered on 12/28/16 10:44; Start 12/27/16 at 21:00; Stop 12/28/16 at 15:23; Status DC Cetirizine HCl (Zyrtec) 10 mg PRN DAILY PRN PO ALLERGIES; Start 12/28/16 at 09: 00 Pantoprazole Sodium (Protonix) 40 mg DAILYAC PO Last administered on 01/06/17 06:38; Start 12/28/16 at 07:30 Oxycodone/ Acetaminophen 2 tab 2 tab Q4HRS PRN PO SEVERE PAIN Last administered on 01/04/17 20:35; Start 12/27/16 at 16:45 Sodium Chloride (Iv Sodium Chloride 0.9% 1000ml Bag) 1,000 ml @ 75 mls/hr [id number] IV Last administered on 12/28/16 07:12; Start 12/27/16 at 17:30; Stop 12/28/16 at 08:15; Status DC Piperacillin Sod/ Tazobactam Sod (Zosyn Per Pharmacy) 1 each PRN DAILY PRN MC SEE COMMENTS; Start 12/27/16 at 17:30; Stop 12/28/16 at 07:27; Status DC Vancomycin HCl 1 each 1 each PRN DAILY PRN MC SEE COMMENTS Last administered on 12/27/16 18:45; Start 12/27/16 at 17:30; Stop 12/27/16 at 18:51; Status DC Vancomycin HCl 2 gm/Sodium Chloride 500 ml @ 250 mls/hr 1X ONCE IV ; Start at 17:45; Stop 12/27/16 at 18:51; Status DC Piperacillin Sod/ Tazobactam Sod 3.375 gm/Sodium Chloride 50 ml @ 100 mls/hr 1X ONCE IV Last administered on 12/27/16 18:07; Start 12/27/16 at 18:00; Stop 12/27/16 at 18:29; Status DC Piperacillin Sod/ Tazobactam Sod 2.25 gm/Sodium Chloride 50 ml @ 100 mls/hr Q6HRS IV Last administered on 12/28/16 06:08; Start 12/28/16 at 00:00; Stop at 07:31; Status DC Vancomycin HCl 1.5 gm/Sodium Chloride 500 ml @ 250 mls/hr Q48H IV ; Start 12/29 at 20:00; Stop 12/29/16 at 20:00; Status DC Micafungin Sodium 100 mg/Dextrose 100 ml @ 100 mls/hr Q24H IV Last administered on 12/31/16 09:13; Start 12/28/16 at 08:00; Stop 12/31/16 at 10:43 ; Status DC Linezolid 300 ml @ 300 mls/hr Q12HR IV Last administered on 12/31/16 09:13; Start 12/28/16 at 09:00; Stop 12/31/16 at 10:43; Status DC Piperacillin Sod/ Tazobactam Sod 2.25 gm/Sodium Chloride 50 ml @ 100 mls/hr Q8HRS IV Last administered on 01/03/17 06:04; Start 12/28/16 at 14:00; Stop at 13:01; Status DC Calcium Chloride 2000 mg/Sodium Chloride 120 ml @ 240 mls/hr 1X ONCE IV Last administered on 12/28/16 08:54; Start 12/28/16 at 08:00; Stop 12/28/16 at 08:29 ; Status DC Magnesium Sulfate/ Dextrose (Magnesium Sulfate PREMIX 2GM) 50 ml @ 25 mls/hr PRN DAILY PRN IV for Mag < 1.7 on am labs Last administered on 01/04/17 09:50 ; Start 12/28/16 at 08:15; Stop 01/06/17 at 11:48; Status DC Sodium Bicarbonate 50 meq 50 meq Q2H IV Last administered on 12/28/16 15:33; Start 12/28/16 at 08:30; Stop 12/28/16 at 10:31; Status DC Sodium Chloride 500 ml @ 0 mls/hr PRN QID PRN IV UO< 30cc/hr over previous 6hrs ; Start 12/28/16 at 08:15; Stop 01/03/17 at 18:34; Status DC Sodium Bicarbonate/ Dextrose 1,150 ml @ 100 mls/hr [id number] IV Last administered on 12/30/16 06:08; Start 12/28/16 at 09:00; Stop 12/30/16 at 08:59 ; Status DC Heparin Sodium (Porcine) (Heparin Sodium) 10,000 unit STK-MED ONCE .ROUTE ; Start 12/28/16 at 08:46; Stop 12/28/16 at 08:47; Status DC Lidocaine/Sodium Bicarbonate 20 ml 20 ml STK-MED ONCE IJ ; Start 12/28/16 at 08: 47; Stop 12/28/16 at 08:48; Status DC Heparin Sodium/ Sodium Chloride 500 ml @ As Directed STK-MED ONCE .ROUTE ; Start 12/28/16 at 08:47; Stop 12/28/16 at 08:48; Status DC Lidocaine/Sodium Bicarbonate (Buffered Lidocaine 1%) 3 ml 1X ONCE IJ Last administered on 12/28/16 10:10; Start 12/28/16 at 09:00; Stop 12/28/16 at 09:01 ; Status DC Heparin Sodium/ Sodium Chloride 60 unit 1X ONCE IV Last administered on 10:11; Start 12/28/16 at 09:00; Stop 12/28/16 at 09:01; Status DC Heparin Sodium (Porcine) (Heparin Sodium) 2,500 unit 1X ONCE INT CAT Last administered on 12/28/16 10:10; Start 12/28/16 at 09:00; Stop 12/28/16 at 09:01 ; Status DC Midazolam HCl (Versed) 2 mg STK-MED ONCE .ROUTE ; Start 12/28/16 at 09:41; Stop 12/28/16 at 09:42; Status DC Saliva Substitute (Biotene Moisturizing Mouth) 2 spray PRN Q15MIN PRN PO DRY MOUTH Last administered on 12/31/16 17:53; Start 12/28/16 at 13:15 Gabapentin (Neurontin) 300 mg DAILY PO Last administered on 01/03/17 09:06; Start 12/29/16 at 09:00; Stop 01/03/17 at 18:21; Status DC Acetaminophen (Tylenol) 650 mg PRN Q6HRS PRN PO MILD PAIN Last administered on 01/05/17 02:15; Start 12/28/16 at 18:15 Ondansetron HCl (Zofran) 4 mg PRN Q6HRS PRN IV NAUSEA/VOMITING Last administered on 12/29/16 11:10; Start 12/29/16 at 10:45; Stop 12/29/16 at 13:53 ; Status DC Ondansetron HCl (Zofran) 8 mg PRN Q8HRS PRN IV NAUSEA/VOMITING Last administered on 12/31/16 03:35; Start 12/29/16 at 14:00; Stop 12/31/16 at 09:03 ; Status DC Prochlorperazine Edisylate 10 mg 10 mg 1X ONCE IV Last administered on 14:00; Start 12/29/16 at 14:00; Stop 12/29/16 at 14:01; Status DC Sodium Chloride 500 ml @ 500 mls/hr 1X ONCE IV Last administered on 23:20; Start 12/29/16 at 23:30; Stop 12/30/16 at 00:29; Status DC Sodium Chloride 500 ml @ 500 mls/hr 1X ONCE IV Last administered on 00:05; Start 12/30/16 at 00:00; Stop 12/30/16 at 00:59; Status DC Sodium Chloride 1,000 ml @ 1,000 mls/hr Q1H PRN IV hypotension; Start 12/30/16 at 08:03; Stop 12/30/16 at 14:02; Status DC Albumin Human (Albuminar) 200 ml @ 200 mls/hr 1X PRN PRN IV Hypotension Last administered on 12/30/16 09:22; Start 12/30/16 at 08:15; Stop 12/30/16 at 14:14 ; Status DC Sodium Chloride (Normal Saline Flush) 10 ml 1X PRN PRN IV AP catheter pack; Start 12/30/16 at 08:15; Stop 12/31/16 at 08:14; Status DC Sodium Chloride (Normal Saline Flush) 10 ml 1X PRN PRN IV [employer] catheter pack; Start 12/30/16 at 08:15; Stop 12/31/16 at 08:14; Status DC Info (PHARMACY MONITORING -- do not chart) 1 each PRN DAILY PRN MC SEE COMMENTS ; Start 12/30/16 at 08:15 Info (PHARMACY MONITORING -- do not chart) 1 each PRN DAILY PRN MC SEE COMMENTS ; Start 12/30/16 at 08:15; Status UNV Paricalcitol (Zemplar) 5 mcg 3X/WEEK IV Last administered on 01/03/17 09:06; Start 12/31/16 at 09:00; Stop 01/04/17 at 11:03; Status DC Calcium Acetate 1334 mg 1,334 mg TIDWMEALS PO Last administered on 01/04/17 09 :46; Start 12/30/16 at 12:00; Stop 01/04/17 at 11:03; Status DC Albumin Human (Plasmanate) 500 ml @ 120 mls/hr Q4HRS IV Last administered on 16:45; Start 12/30/16 at 12:00; Stop 12/30/16 at 19:59; Status DC Ondansetron HCl (Zofran) 8 mg PRN Q6HRS PRN IV NAUSEA/VOMITING, 2ND CHOICE Last administered on 01/03/17 08:59; Start 12/31/16 at 08:58 Lorazepam (Ativan) 0.5 mg PRN Q4HRS PRN IV ANXIETY / AGITATION Last administered on 01/01/17 09:43; Start 12/31/16 at 09:00 Prochlorperazine Edisylate (Compazine) 10 mg PRN Q6HRS PRN IM NAUSEA/VOMITING Last administered on 12/31/16 09:15; Start 12/31/16 at 09:00; Stop 01/01/17 at 11:48; Status DC Metoclopramide HCl 5 mg 5 mg PRN Q6HRS PRN IV NAUSEA/VOMITING, 1ST CHOICE Last administered on 01/01/17 09:42; Start 12/31/16 at 11:45 Magnesium Sulfate/ Dextrose 50 ml @ 25 mls/hr 1X ONCE IV Last administered on 12/31/16 17:54; Start 12/31/16 at 15:00; Stop 12/31/16 at 16:59; Status DC Albumin Human (Plasmanate) 500 ml @ 75 mls/hr Q6H40M IV Last administered on 03:44; Start 12/31/16 at 15:15; Stop 01/01/17 at 11:14; Status DC Prochlorperazine Edisylate (Compazine) 10 mg PRN Q6HRS PRN IV NAUSEA/VOMITING, 3RD CHOICE Last administered on 01/01/17 17:38; Start 01/01/17 at 11:45 Potassium Chloride (Klor-Con) 40 meq 1X ONCE PO Last administered on 13:02; Start 01/01/17 at 12:00; Stop 01/01/17 at 12:01; Status DC Furosemide (Lasix) 40 mg 1X ONCE IVP Last administered on 01/01/17 14:24; Start 01/01/17 at 14:00; Stop 01/01/17 at 14:01; Status DC Albuterol/ Ipratropium (Duoneb) 3 ml PRN Q6HRS PRN NEB SHORTNESS OF BREATH Last administered on 01/05/17 11:26; Start 01/01/17 at 13:45; Stop 01/05/17 at 22:40; Status DC Furosemide (Lasix) 40 mg 1X ONCE IVP Last administered on 01/02/17 11:43; Start 01/02/17 at 10:45; Stop 01/02/17 at 10:46; Status DC Potassium Chloride 40 meq 40 meq 1X ONCE PO Last administered on 01/02/17 13: 21; Start 01/02/17 at 13:15; Stop 01/02/17 at 13:16; Status DC Heparin Sodium/ Dextrose 500 ml @ 0 mls/hr CONT PRN IV SEE I/O RECORD Last administered on 01/05/17 22:50; Start 01/02/17 at 14:45 Heparin Sodium (Porcine) (Heparin Sodium) 3,150 unit PRN Q6HRS PRN IV FOR UFH LEVEL LESS THAN 0.2; Start 01/02/17 at 14:45 Heparin Sodium (Porcine) (Heparin Sodium) 1,550 unit PRN Q6HRS PRN IV FOR UFH LEVEL 0.2 - 0.29; Start 01/02/17 at 14:45 Warfarin Sodium (Coumadin Per Pharmacy) 1 each PRN DAILY PRN MC PER PROTOCOL Last administered on 01/03/17 11:34; Start 01/02/17 at 14:45; Stop 01/03/17 at 23:01; Status DC Warfarin Sodium (Coumadin) 5 mg 1X WARF ONCE PO Last administered on 17:41; Start 01/02/17 at 16:00; Stop 01/02/17 at 16:01; Status DC Warfarin Sodium (Coumadin - No Dose Today) 1 each 1X WARF ONCE MC ; Start 01/03 at 16:00; Stop 01/03/17 at 23:01; Status DC Cefpodoxime Proxetil (Vantin) 200 mg BID PO Last administered on 01/05/17 08: 53; Start 01/03/17 at 21:00; Stop 01/05/17 at 09:37; Status DC Cyanocobalamin (Vitamin B-12) 1,000 mcg QMONTH IM Last administered on 09:49; Start 01/04/17 at 09:00 Gabapentin 900 mg 900 mg TID PO Last administered on 01/06/17 08:52; Start at 21:00 Sodium Chloride (Iv Sodium Chloride 0.9% 1000ml Bag) 1,000 ml @ 75 mls/hr [id number] IV Last administered on 01/04/17 09:46; Start 01/03/17 at 18:45; Stop 01/04/17 at 11:04; Status DC Potassium Chloride 20 meq 20 meq 1X ONCE PO Last administered on 01/03/17 18: 56; Start 01/03/17 at 18:45; Stop 01/03/17 at 18:46; Status DC Magnesium Sulfate/ Dextrose 50 ml @ 25 mls/hr PRN DAILY PRN IV for Mag < 1.7 on am labs; Start 01/04/17 at 10:45; Status UNV Potassium Chloride 50 ml @ 50 mls/hr PRN Q6HRS PRN IV For K < 3.7 Last administered on 01/05/17 13:10; Start 01/04/17 at 10:45 Potassium Chloride 50 ml @ 50 mls/hr PRN Q2HR PRN IV total of 40mEq for K < 3.5 Last administered on 01/04/17 13:46; Start 01/04/17 at 10:45 Albumin Human (Albuminar) 100 ml @ 100 mls/hr TID IV Last administered on 01/06 08:53; Start 01/04/17 at 14:00; Stop 01/06/17 at 09:59; Status DC Warfarin Sodium (Coumadin) 4 mg DAILY16 PO Last administered on 01/05/17 18:39 ; Start 01/04/17 at 17:00 Warfarin Sodium 1 each 1 each PRN DAILY PRN MC SEE COMMENTS Last administered on 01/06/17 11:49; Start 01/04/17 at 17:00 Magnesium Sulfate/ Dextrose 100 ml @ 100 mls/hr 1X ONCE IV Last administered on 01/05/17 11:35; Start 01/05/17 at 11:00; Stop 01/05/17 at 11:59; Status DC Magnesium Sulfate/ Dextrose 50 ml @ 25 mls/hr PRN DAILY PRN IV for Mag < 1.7 on am labs; Start 01/05/17 at 11:00 Potassium Chloride (KCl Premix 20meq) 50 ml @ 25 mls/hr Q2HR IV Last administered on 01/05/17 23:42; Start 01/05/17 at 16:00; Stop 01/05/17 at 19:59 ; Status DC Iohexol (Omnipaque 300 Mg/ml) 60 ml 1X ONCE IV ; Start 01/05/17 at 16:15; Stop 01/05/17 at 16:16; Status DC Iohexol (Omnipaque 240 Mg/ml) 30 ml 1X ONCE PO Last administered on 01/05/17 15:45; Start 01/05/17 at 16:15; Stop 01/05/17 at 16:16; Status DC Info (Do NOT chart on this entry -- for MONITORING) 1 each PRN DAILY PRN MC SEE COMMENTS; Start 01/05/17 at 16:15; Stop 01/07/17 at 16:14 Albuterol/ Ipratropium (Duoneb) 3 ml RTQID NEB Last administered on 01/06/17 11:06; Start 01/05/17 at 20:00 Budesonide (Pulmicort) 0.5 mg RTBID NEB Last administered on 01/06/17 07:32; Start 01/05/17 at 20:00 Furosemide (Lasix) 20 mg 1X ONCE IVP Last administered on 01/05/17 22:04; Start 01/05/17 at 22:00; Stop 01/05/17 at 22:01; Status DC Albuterol Sulfate (Ventolin Neb Soln) 2.5 mg PRN Q6HRS PRN NEB SHORTNESS OF BREATH; Start 01/05/17 at 22:40 Active Scripts Active Reported Gabapentin 300 Mg Capsule 900 Mg PO TID Claritin (Loratadine) 10 Mg Tablet 1 Tab PO DAILY PRN Bactrim 400-80 Mg Tablet (Sulfamethoxazole/Trimethoprim) 1 Each Tablet 1 Tab PO BID Gabapentin 300 Mg Capsule 300 Mg PO TID Zestril (Lisinopril) 10 Mg Tablet 10 Mg PO DAILY Cyanocobalamin Injection (Cyanocobalamin (Vitamin B-12)) 1,000 Mcg/1 Ml Vial 1, 000 Mcg QMONTH Percocet 5-325 Mg Tablet (Oxycodone/Acetaminophen) 1 Each Tablet 1-2 Tab PO Q4- 6HRS Prilosec Otc (Omeprazole Magnesium) 20 Mg Tablet.dr 20 Mg PO DAILY Vitals/I & O Vital Sign - Last 24 Hours 01/05/17 01/05/17 01/05/17 01/05/17 15:00 18:06 18:34 19:00 Temp 97.5 97.7 97.2 97.9 97.5 97.7 97.2 97.9 Pulse 77 89 84 85 Resp 18 18 18 18 B/P 148/65 165/75 155/66 147/69 Pulse Ox 98 98 O2 Delivery Room Air Nasal Cannula O2 Flow Rate 2.0 01/05/17 01/05/17 01/05/17 01/05/17 19:35 19:35 19:42 19:43 Temp 97.9 97.9 Pulse 85 Resp 18 B/P 147/69 Pulse Ox 98 98 O2 Delivery Nasal Cannula Nasal Cannula Nasal Cannula O2 Flow Rate 2.0 2.0 2.0 01/05/17 01/05/17 01/05/17 01/05/17 20:30 20:35 20:52 21:35 Temp 97.7 97.7 97.5 97.7 97.7 97.5 Pulse 79 79 87 Resp 24 24 22 24 B/P 149/71 149/71 140/72 Pulse Ox 98 98 96 O2 Delivery Nasal Cannula Nasal Cannula Nasal Cannula O2 Flow Rate 2.0 2.0 2.0 01/05/17 01/05/17 01/06/17 01/06/17 21:55 23:00 03:00 07:00 Temp 97.5 97.7 97.7 97.5 97.7 97.7 Pulse 82 80 83 Resp 20 24 22 22 B/P 110/68 138/66 145/78 Pulse Ox 96 96 96 97 O2 Delivery Nasal Cannula Nasal Cannula Nasal Cannula Room Air O2 Flow Rate 2.0 3.0 3.0 01/06/17 01/06/17 01/06/17 01/06/17 07:32 08:00 11:00 11:06 Temp 97.7 97.7 Pulse 79 Resp 20 B/P 149/68 Pulse Ox 99 97 O2 Delivery Nasal Cannula Nasal Cannula Nasal Cannula Nasal Cannula O2 Flow Rate 2.0 2.0 2.0 Intake and Output 01/05/17 01/05/17 01/06/17 14:59 22:59 06:59 Intake Total 280 ml 200 ml 1371.18 ml Output Total 750 ml Balance 280 ml 200 ml 621.18 ml SERGEY KNOWLES MD Jan 06, 2017 14:15
[2017-01-06 15:00] VITALS: BP 135/76
[2017-01-06] MEDS: HEPARIN 25,000UTS/500ML PREMIX 500 ML IV PRN (15:16)
[2017-01-06] MEDS: WARFARIN 4 MG TABLET. PO SCH (15:17)
[2017-01-06 19:05] VITALS: BP 154/77
[2017-01-06] MEDS: oxyCODONE/APAP 5/325 1 TAB TABLET PO PRN (20:54)
[2017-01-06 23:00] VITALS: BP 147/61
[2017-01-07 03:00] VITALS: BP 148/63
[2017-01-07 05:10] LABS: BASO % 0 % (0-3); EOS % 0 % (0-3); HEMATOCRIT 21.8 % (36.0-47.0); HEMOGLOBIN 7.3 g/dL (12.0-15.5); LYMPH # 0.7 x10^3/uL (1.0-4.8); LYMPH % 14 % (24-48); MEAN CORPUSCULAR HEMOGLOBIN 33 pg (25-35); MEAN CORPUSCULAR HGB CONC 33 g/dL (31-37); MEAN CORPUSCULAR VOLUME 99 fL (79-100); MONO % 52 % (0-9); NEUT % 34 % (31-73); PLATELET COUNT 117 x10^3/uL (140-400); RED CELL DISTRIBUTION WIDTH 24.2 % (11.5-14.5)
[2017-01-07 05:31] LABS: INR 1.4 (0.8-1.1); PROTHROMBIN TIME PATIENT 16.1 SEC (11.7-14.0)
[2017-01-07 05:50] LABS: ALBUMIN 3.6 g/dL (3.4-5.0); ALBUMIN/GLOBULIN RATIO 1.6 (1.0-1.7); CALCIUM 8.1 mg/dL (8.5-10.1); CREATININE 0.9 mg/dL (0.6-1.0); GFR 62.5; POTASSIUM 3.8 mmol/L (3.5-5.1); TOTAL BILIRUBIN 0.8 mg/dL (0.2-1.0); TOTAL PROTEIN 5.8 g/dL (6.4-8.2)
[2017-01-07] MEDS: HEPARIN 25,000UTS/500ML PREMIX 500 ML IV PRN ×2 (06:14→21:37)
[2017-01-07 07:00] VITALS: BP 156/76
[2017-01-07] MEDS: BUDESONIDE 0.5 MG/2 ML NEBU. NEB SCH ×2 (07:30→19:34)
[2017-01-07] MEDS: IPRATRPIUM/ALBUTEROL 0.5/2.5MG 3 ML NEBU. NEB SCH ×4 (07:30→19:34)
--- NOTE | 2017-01-07 09:02 | PDOC ---
PROGRESS NOTES Subjective Subjective c/c - f/u of Cholangiocarcinoma stage 4 ROS - c/o dyspnea Objective Objective Vital Signs Date Time Temp Pulse Resp B/P Pulse Ox O2 Delivery O2 Flow Rate FiO2 01/07/17 07:36 98 Nasal Cannula 4.0 01/07/17 07:00 97.6 78 20 156/76 97.6 Intake and Output 01/07/17 07:00 Intake Total 685 ml Output Total 1850 ml Balance -1165 ml Intake Oral 100 ml IV Total 585 ml Output Urine Total 1850 ml Physical Exam Heart: Normal S1, Normal S2 General: Alert, Oriented X3 Lungs: Clear to auscultation Neuro: Normal speech Psych/Mental Status: Mental status NL Assessment Assessment Problems Medical Problems: (1) Cellulitis Status: Acute IMPRESSION AND PLAN: 1. Cholangiocarcinoma stage 4. She is on chemotherapy with Gemzar and Xeloda, her last treatment was given on 12/24/2016. I will hold further chemotherapy in view of cellulitis and renal failure and she will follow up with me upon discharge. CT 01/05/[address] 2.4 cm. I agree that she has likely gemzar related toxicities with ARF and edema. 2. Acute renal failure, management per Dr. Kerr. Pt and concerned about persistent edema. Cr now normal. 3. Hypocalcemia. s/p IV calcium. 4. Hypoalbuminemia due to malnutrition from malignancy. 5. Cellulitis. I discussed with Dr. Óscar Thacker. She was started on antibiotics for cellulitis of bilateral lower extremities. She had a venous Doppler of bilateral lower extremities on 12/28/2016 that is negative for DVT. 6. Twitching - resolved. 7. Recurrent LE edema, rash. At [facility] last week was thought to be c/w gemzar- related LE swelling/ capillary leak causing erythema, no signs infxn. Improved with abx. 8. DVT - RUE 01/02/17 - agree with IV heparin, agree with warfarin. 9. Thrombocytopenia - s/p platelet transfusion 01/04/17. Improving. 10. Dyspnea, plan CXR and pulm consult. If she is going home on HH, I would recommend HH supervision by her PCP. Comment Review of Relevant I have reviewed the following items ketty (where applicable) has been applied. Labs Laboratory Tests Test 01/05/17 13:30 01/06/17 05:00 01/06/17 12:00 01/06/17 18:15 Heparin Anti-Xa Act, Unfractionated 0.65IU/mL (0.30-0.70) 0.51IU/mL (0.30-0.70) Sodium Level 142mmol/L (136-145) 137mmol/L (136-145) Potassium Level 3.4mmol/L (3.5-5.1) 4.0mmol/L (3.5-5.1) 3.9mmol/L (3.5-5.1) 3.9mmol/L (3.5-5.1) Chloride Level 105mmol/L (98-107) 103mmol/L (98-107) Carbon Dioxide Level 30mmol/L (21-32) 28mmol/L (21-32) Anion Gap 7 (6-14) 6 (6-14) Blood Urea Nitrogen 14mg/dL (7-20) 12mg/dL (7-20) Creatinine 1.0mg/dL (0.6-1.0) 1.0mg/dL (0.6-1.0) Estimated GFR (Cockcroft-Gault) 55.3 55.3 Glucose Level 121mg/dL (70-99) 86mg/dL (70-99) Calcium Level 7.9mg/dL (8.5-10.1) 8.1mg/dL (8.5-10.1) White Blood Count 5.0x10^3/uL (4.0-11.0) Red Blood Count 2.26x10^6/uL (3.50-5.40) Hemoglobin 7.4g/dL (12.0-15.5) Hematocrit 22.1% (36.0-47.0) Mean Corpuscular Volume 98fL (79-100) Mean Corpuscular Hemoglobin 33pg (25-35) Mean Corpuscular Hemoglobin Concent 34g/dL (31-37) Red Cell Distribution Width 21.8% (11.5-14.5) Platelet Count 81x10^3/uL (140-400) Neutrophils (%) (Auto) 45% (31-73) Lymphocytes (%) (Auto) 14% (24-48) Monocytes (%) (Auto) 40% (0-9) Eosinophils (%) (Auto) 0% (0-3) Basophils (%) (Auto) 0% (0-3) Neutrophils # (Auto) 2.3x10^3uL (1.8-7.7) Lymphocytes # (Auto) 0.7x10^3/uL (1.0-4.8) Monocytes # (Auto) 2.0x10^3/uL (0.0-1.1) Eosinophils # (Auto) 0.0x10^3/uL (0.0-0.7) Basophils # (Auto) 0.0x10^3/uL (0.0-0.2) Prothrombin Time 15.6SEC (11.7-14.0) Prothromb Time International Ratio 1.3 (0.8-1.1) Phosphorus Level 3.0mg/dL (2.6-4.7) Magnesium Level 1.9mg/dL (1.8-2.4) Albumin 3.8g/dL (3.4-5.0) Test 01/07/17 04:40 01/07/17 05:00 Prothrombin Time 16.1SEC (11.7-14.0) Prothromb Time International Ratio 1.4 (0.8-1.1) Heparin Anti-Xa Act, Unfractionated 0.69IU/mL (0.30-0.70) Sodium Level 139mmol/L (136-145) Potassium Level 3.8mmol/L (3.5-5.1) Chloride Level 104mmol/L (98-107) Carbon Dioxide Level 28mmol/L (21-32) Anion Gap 7 (6-14) Blood Urea Nitrogen 11mg/dL (7-20) Creatinine 0.9mg/dL (0.6-1.0) Estimated GFR (Cockcroft-Gault) 62.5 BUN/Creatinine Ratio 12 (6-20) Glucose Level 85mg/dL (70-99) Calcium Level 8.1mg/dL (8.5-10.1) Magnesium Level 1.8mg/dL (1.8-2.4) Total Bilirubin 0.8mg/dL (0.2-1.0) Aspartate Amino Transf (AST/SGOT) 52U/L (15-37) Alanine Aminotransferase (ALT/SGPT) 34U/L (14-59) Alkaline Phosphatase 140U/L (46-116) Total Protein 5.8g/dL (6.4-8.2) Albumin 3.6g/dL (3.4-5.0) Albumin/Globulin Ratio 1.6 (1.0-1.7) White Blood Count 5.0x10^3/uL (4.0-11.0) Red Blood Count 2.20x10^6/uL (3.50-5.40) Hemoglobin 7.3g/dL (12.0-15.5) Hematocrit 21.8% (36.0-47.0) Mean Corpuscular Volume 99fL (79-100) Mean Corpuscular Hemoglobin 33pg (25-35) Mean Corpuscular Hemoglobin Concent 33g/dL (31-37) Red Cell Distribution Width 24.2% (11.5-14.5) Platelet Count 117x10^3/uL (140-400) Neutrophils (%) (Auto) 34% (31-73) Lymphocytes (%) (Auto) 14% (24-48) Monocytes (%) (Auto) 52% (0-9) Eosinophils (%) (Auto) 0% (0-3) Basophils (%) (Auto) 0% (0-3) Neutrophils # (Auto) 1.7x10^3uL (1.8-7.7) Lymphocytes # (Auto) 0.7x10^3/uL (1.0-4.8) Monocytes # (Auto) 2.6x10^3/uL (0.0-1.1) Eosinophils # (Auto) 0.0x10^3/uL (0.0-0.7) Basophils # (Auto) 0.0x10^3/uL (0.0-0.2) Laboratory Tests Test 01/06/17 12:00 01/06/17 18:15 01/07/17 04:40 01/07/17 05:00 Potassium Level 3.9mmol/L (3.5-5.1) 3.9mmol/L (3.5-5.1) 3.8mmol/L (3.5-5.1) Prothrombin Time 16.1SEC (11.7-14.0) Prothromb Time International Ratio 1.4 (0.8-1.1) Heparin Anti-Xa Act, Unfractionated 0.69IU/mL (0.30-0.70) Sodium Level 139mmol/L (136-145) Chloride Level 104mmol/L (98-107) Carbon Dioxide Level 28mmol/L (21-32) Anion Gap 7 (6-14) Blood Urea Nitrogen 11mg/dL (7-20) Creatinine 0.9mg/dL (0.6-1.0) Estimated GFR (Cockcroft-Gault) 62.5 BUN/Creatinine Ratio 12 (6-20) Glucose Level 85mg/dL (70-99) Calcium Level 8.1mg/dL (8.5-10.1) Magnesium Level 1.8mg/dL (1.8-2.4) Total Bilirubin 0.8mg/dL (0.2-1.0) Aspartate Amino Transf (AST/SGOT) 52U/L (15-37) Alanine Aminotransferase (ALT/SGPT) 34U/L (14-59) Alkaline Phosphatase 140U/L (46-116) Total Protein 5.8g/dL (6.4-8.2) Albumin 3.6g/dL (3.4-5.0) Albumin/Globulin Ratio 1.6 (1.0-1.7) White Blood Count 5.0x10^3/uL (4.0-11.0) Red Blood Count 2.20x10^6/uL (3.50-5.40) Hemoglobin 7.3g/dL (12.0-15.5) Hematocrit 21.8% (36.0-47.0) Mean Corpuscular Volume 99fL (79-100) Mean Corpuscular Hemoglobin 33pg (25-35) Mean Corpuscular Hemoglobin Concent 33g/dL (31-37) Red Cell Distribution Width 24.2% (11.5-14.5) Platelet Count 117x10^3/uL (140-400) Neutrophils (%) (Auto) 34% (31-73) Lymphocytes (%) (Auto) 14% (24-48) Monocytes (%) (Auto) 52% (0-9) Eosinophils (%) (Auto) 0% (0-3) Basophils (%) (Auto) 0% (0-3) Neutrophils # (Auto) 1.7x10^3uL (1.8-7.7) Lymphocytes # (Auto) 0.7x10^3/uL (1.0-4.8) Monocytes # (Auto) 2.6x10^3/uL (0.0-1.1) Eosinophils # (Auto) 0.0x10^3/uL (0.0-0.7) Basophils # (Auto) 0.0x10^3/uL (0.0-0.2) Microbiology 12/27/16 Blood Culture - Final, Complete NO GROWTH AFTER 5 DAYS 12/31/16 Urine Culture - Final, Complete 12/31/16 Urine Culture Result 1 (MANE) - Final, Complete Medications Current Medications Acetaminophen (Tylenol) 650 mg 1X ONCE PO Last administered on 12/27/16 09:11 ; Start 12/27/16 at 08:15; Stop 12/27/16 at 08:22; Status DC Diphenhydramine HCl (Benadryl) 25 mg 1X ONCE PO Last administered on 09:12; Start 12/27/16 at 08:15; Stop 12/27/16 at 08:22; Status DC Furosemide (Lasix) 20 mg 1X ONCE IVP ; Start 12/27/16 at 08:15; Stop 12/27/16 at 08:22; Status DC Fentanyl Citrate (Fentanyl 2ml Vial) 25 mcg PRN QID PRN IV PAIN; Start at 16:45; Stop 12/29/16 at 21:00; Status DC Lisinopril (Prinivil) 10 mg DAILY PO ; Start 12/28/16 at 09:00; Stop 12/28/16 at 09:00; Status DC Oxycodone/ Acetaminophen (Percocet 5/325) 1 tab Q4HRS PRN PO MILD/MODERATE PAIN Last administered on 01/06/17 20:54; Start 12/27/16 at 16:45 Gabapentin (Neurontin) 300 mg TID PO Last administered on 12/28/16 10:44; Start 12/27/16 at 21:00; Stop 12/28/16 at 15:23; Status DC Cetirizine HCl (Zyrtec) 10 mg PRN DAILY PRN PO ALLERGIES; Start 12/28/16 at 09: 00 Pantoprazole Sodium (Protonix) 40 mg DAILYAC PO Last administered on 01/06/17 06:38; Start 12/28/16 at 07:30 Oxycodone/ Acetaminophen 2 tab 2 tab Q4HRS PRN PO SEVERE PAIN Last administered on 01/04/17 20:35; Start 12/27/16 at 16:45 Sodium Chloride (Iv Sodium Chloride 0.9% 1000ml Bag) 1,000 ml @ 75 mls/hr [id number] IV Last administered on 12/28/16 07:12; Start 12/27/16 at 17:30; Stop 12/28/16 at 08:15; Status DC Piperacillin Sod/ Tazobactam Sod (Zosyn Per Pharmacy) 1 each PRN DAILY PRN MC SEE COMMENTS; Start 12/27/16 at 17:30; Stop 12/28/16 at 07:27; Status DC Vancomycin HCl 1 each 1 each PRN DAILY PRN MC SEE COMMENTS Last administered on 12/27/16 18:45; Start 12/27/16 at 17:30; Stop 12/27/16 at 18:51; Status DC Vancomycin HCl 2 gm/Sodium Chloride 500 ml @ 250 mls/hr 1X ONCE IV ; Start at 17:45; Stop 12/27/16 at 18:51; Status DC Piperacillin Sod/ Tazobactam Sod 3.375 gm/Sodium Chloride 50 ml @ 100 mls/hr 1X ONCE IV Last administered on 12/27/16 18:07; Start 12/27/16 at 18:00; Stop 12/27/16 at 18:29; Status DC Piperacillin Sod/ Tazobactam Sod 2.25 gm/Sodium Chloride 50 ml @ 100 mls/hr Q6HRS IV Last administered on 12/28/16 06:08; Start 12/28/16 at 00:00; Stop at 07:31; Status DC Vancomycin HCl 1.5 gm/Sodium Chloride 500 ml @ 250 mls/hr Q48H IV ; Start 12/29 at 20:00; Stop 12/29/16 at 20:00; Status DC Micafungin Sodium 100 mg/Dextrose 100 ml @ 100 mls/hr Q24H IV Last administered on 12/31/16 09:13; Start 12/28/16 at 08:00; Stop 12/31/16 at 10:43 ; Status DC Linezolid 300 ml @ 300 mls/hr Q12HR IV Last administered on 12/31/16 09:13; Start 12/28/16 at 09:00; Stop 12/31/16 at 10:43; Status DC Piperacillin Sod/ Tazobactam Sod 2.25 gm/Sodium Chloride 50 ml @ 100 mls/hr Q8HRS IV Last administered on 01/03/17 06:04; Start 12/28/16 at 14:00; Stop at 13:01; Status DC Calcium Chloride 2000 mg/Sodium Chloride 120 ml @ 240 mls/hr 1X ONCE IV Last administered on 12/28/16 08:54; Start 12/28/16 at 08:00; Stop 12/28/16 at 08:29 ; Status DC Magnesium Sulfate/ Dextrose (Magnesium Sulfate PREMIX 2GM) 50 ml @ 25 mls/hr PRN DAILY PRN IV for Mag < 1.7 on am labs Last administered on 01/04/17 09:50 ; Start 12/28/16 at 08:15; Stop 01/06/17 at 11:48; Status DC Sodium Bicarbonate 50 meq 50 meq Q2H IV Last administered on 12/28/16 15:33; Start 12/28/16 at 08:30; Stop 12/28/16 at 10:31; Status DC Sodium Chloride 500 ml @ 0 mls/hr PRN QID PRN IV UO< 30cc/hr over previous 6hrs ; Start 12/28/16 at 08:15; Stop 01/03/17 at 18:34; Status DC Sodium Bicarbonate/ Dextrose 1,150 ml @ 100 mls/hr [id number] IV Last administered on 12/30/16 06:08; Start 12/28/16 at 09:00; Stop 12/30/16 at 08:59 ; Status DC Heparin Sodium (Porcine) (Heparin Sodium) 10,000 unit STK-MED ONCE .ROUTE ; Start 12/28/16 at 08:46; Stop 12/28/16 at 08:47; Status DC Lidocaine/Sodium Bicarbonate 20 ml 20 ml STK-MED ONCE IJ ; Start 12/28/16 at 08: 47; Stop 12/28/16 at 08:48; Status DC Heparin Sodium/ Sodium Chloride 500 ml @ As Directed STK-MED ONCE .ROUTE ; Start 12/28/16 at 08:47; Stop 12/28/16 at 08:48; Status DC Lidocaine/Sodium Bicarbonate (Buffered Lidocaine 1%) 3 ml 1X ONCE IJ Last administered on 12/28/16 10:10; Start 12/28/16 at 09:00; Stop 12/28/16 at 09:01 ; Status DC Heparin Sodium/ Sodium Chloride 60 unit 1X ONCE IV Last administered on 10:11; Start 12/28/16 at 09:00; Stop 12/28/16 at 09:01; Status DC Heparin Sodium (Porcine) (Heparin Sodium) 2,500 unit 1X ONCE INT CAT Last administered on 12/28/16 10:10; Start 12/28/16 at 09:00; Stop 12/28/16 at 09:01 ; Status DC Midazolam HCl (Versed) 2 mg STK-MED ONCE .ROUTE ; Start 12/28/16 at 09:41; Stop 12/28/16 at 09:42; Status DC Saliva Substitute (Biotene Moisturizing Mouth) 2 spray PRN Q15MIN PRN PO DRY MOUTH Last administered on 12/31/16 17:53; Start 12/28/16 at 13:15 Gabapentin (Neurontin) 300 mg DAILY PO Last administered on 01/03/17 09:06; Start 12/29/16 at 09:00; Stop 01/03/17 at 18:21; Status DC Acetaminophen (Tylenol) 650 mg PRN Q6HRS PRN PO MILD PAIN Last administered on 01/05/17 02:15; Start 12/28/16 at 18:15 Ondansetron HCl (Zofran) 4 mg PRN Q6HRS PRN IV NAUSEA/VOMITING Last administered on 12/29/16 11:10; Start 12/29/16 at 10:45; Stop 12/29/16 at 13:53 ; Status DC Ondansetron HCl (Zofran) 8 mg PRN Q8HRS PRN IV NAUSEA/VOMITING Last administered on 12/31/16 03:35; Start 12/29/16 at 14:00; Stop 12/31/16 at 09:03 ; Status DC Prochlorperazine Edisylate 10 mg 10 mg 1X ONCE IV Last administered on 14:00; Start 12/29/16 at 14:00; Stop 12/29/16 at 14:01; Status DC Sodium Chloride 500 ml @ 500 mls/hr 1X ONCE IV Last administered on 23:20; Start 12/29/16 at 23:30; Stop 12/30/16 at 00:29; Status DC Sodium Chloride 500 ml @ 500 mls/hr 1X ONCE IV Last administered on 00:05; Start 12/30/16 at 00:00; Stop 12/30/16 at 00:59; Status DC Sodium Chloride 1,000 ml @ 1,000 mls/hr Q1H PRN IV hypotension; Start 12/30/16 at 08:03; Stop 12/30/16 at 14:02; Status DC Albumin Human (Albuminar) 200 ml @ 200 mls/hr 1X PRN PRN IV Hypotension Last administered on 12/30/16 09:22; Start 12/30/16 at 08:15; Stop 12/30/16 at 14:14 ; Status DC Sodium Chloride (Normal Saline Flush) 10 ml 1X PRN PRN IV AP catheter pack; Start 12/30/16 at 08:15; Stop 12/31/16 at 08:14; Status DC Sodium Chloride (Normal Saline Flush) 10 ml 1X PRN PRN IV [employer] catheter pack; Start 12/30/16 at 08:15; Stop 12/31/16 at 08:14; Status DC Info (PHARMACY MONITORING -- do not chart) 1 each PRN DAILY PRN MC SEE COMMENTS ; Start 12/30/16 at 08:15 Info (PHARMACY MONITORING -- do not chart) 1 each PRN DAILY PRN MC SEE COMMENTS ; Start 12/30/16 at 08:15; Status UNV Paricalcitol (Zemplar) 5 mcg 3X/WEEK IV Last administered on 01/03/17 09:06; Start 12/31/16 at 09:00; Stop 01/04/17 at 11:03; Status DC Calcium Acetate 1334 mg 1,334 mg TIDWMEALS PO Last administered on 01/04/17 09 :46; Start 12/30/16 at 12:00; Stop 01/04/17 at 11:03; Status DC Albumin Human (Plasmanate) 500 ml @ 120 mls/hr Q4HRS IV Last administered on 16:45; Start 12/30/16 at 12:00; Stop 12/30/16 at 19:59; Status DC Ondansetron HCl (Zofran) 8 mg PRN Q6HRS PRN IV NAUSEA/VOMITING, 2ND CHOICE Last administered on 01/03/17 08:59; Start 12/31/16 at 08:58 Lorazepam (Ativan) 0.5 mg PRN Q4HRS PRN IV ANXIETY / AGITATION Last administered on 01/01/17 09:43; Start 12/31/16 at 09:00 Prochlorperazine Edisylate (Compazine) 10 mg PRN Q6HRS PRN IM NAUSEA/VOMITING Last administered on 12/31/16 09:15; Start 12/31/16 at 09:00; Stop 01/01/17 at 11:48; Status DC Metoclopramide HCl 5 mg 5 mg PRN Q6HRS PRN IV NAUSEA/VOMITING, 1ST CHOICE Last administered on 01/01/17 09:42; Start 12/31/16 at 11:45 Magnesium Sulfate/ Dextrose 50 ml @ 25 mls/hr 1X ONCE IV Last administered on 12/31/16 17:54; Start 12/31/16 at 15:00; Stop 12/31/16 at 16:59; Status DC Albumin Human (Plasmanate) 500 ml @ 75 mls/hr Q6H40M IV Last administered on 03:44; Start 12/31/16 at 15:15; Stop 01/01/17 at 11:14; Status DC Prochlorperazine Edisylate (Compazine) 10 mg PRN Q6HRS PRN IV NAUSEA/VOMITING, 3RD CHOICE Last administered on 01/01/17 17:38; Start 01/01/17 at 11:45 Potassium Chloride (Klor-Con) 40 meq 1X ONCE PO Last administered on 13:02; Start 01/01/17 at 12:00; Stop 01/01/17 at 12:01; Status DC Furosemide (Lasix) 40 mg 1X ONCE IVP Last administered on 01/01/17 14:24; Start 01/01/17 at 14:00; Stop 01/01/17 at 14:01; Status DC Albuterol/ Ipratropium (Duoneb) 3 ml PRN Q6HRS PRN NEB SHORTNESS OF BREATH Last administered on 01/05/17 11:26; Start 01/01/17 at 13:45; Stop 01/05/17 at 22:40; Status DC Furosemide (Lasix) 40 mg 1X ONCE IVP Last administered on 01/02/17 11:43; Start 01/02/17 at 10:45; Stop 01/02/17 at 10:46; Status DC Potassium Chloride 40 meq 40 meq 1X ONCE PO Last administered on 01/02/17 13: 21; Start 01/02/17 at 13:15; Stop 01/02/17 at 13:16; Status DC Heparin Sodium/ Dextrose 500 ml @ 0 mls/hr CONT PRN IV SEE I/O RECORD Last administered on 01/07/17 06:14; Start 01/02/17 at 14:45 Heparin Sodium (Porcine) (Heparin Sodium) 3,150 unit PRN Q6HRS PRN IV FOR UFH LEVEL LESS THAN 0.2; Start 01/02/17 at 14:45 Heparin Sodium (Porcine) (Heparin Sodium) 1,550 unit PRN Q6HRS PRN IV FOR UFH LEVEL 0.2 - 0.29; Start 01/02/17 at 14:45 Warfarin Sodium (Coumadin Per Pharmacy) 1 each PRN DAILY PRN MC PER PROTOCOL Last administered on 01/03/17 11:34; Start 01/02/17 at 14:45; Stop 01/03/17 at 23:01; Status DC Warfarin Sodium (Coumadin) 5 mg 1X WARF ONCE PO Last administered on 17:41; Start 01/02/17 at 16:00; Stop 01/02/17 at 16:01; Status DC Warfarin Sodium (Coumadin - No Dose Today) 1 each 1X WARF ONCE MC ; Start 01/03 at 16:00; Stop 01/03/17 at 23:01; Status DC Cefpodoxime Proxetil (Vantin) 200 mg BID PO Last administered on 01/05/17 08: 53; Start 01/03/17 at 21:00; Stop 01/05/17 at 09:37; Status DC Cyanocobalamin (Vitamin B-12) 1,000 mcg QMONTH IM Last administered on 09:49; Start 01/04/17 at 09:00 Gabapentin 900 mg 900 mg TID PO Last administered on 01/06/17 20:52; Start at 21:00 Sodium Chloride (Iv Sodium Chloride 0.9% 1000ml Bag) 1,000 ml @ 75 mls/hr [id number] IV Last administered on 01/04/17 09:46; Start 01/03/17 at 18:45; Stop 01/04/17 at 11:04; Status DC Potassium Chloride 20 meq 20 meq 1X ONCE PO Last administered on 01/03/17 18: 56; Start 01/03/17 at 18:45; Stop 01/03/17 at 18:46; Status DC Magnesium Sulfate/ Dextrose 50 ml @ 25 mls/hr PRN DAILY PRN IV for Mag < 1.7 on am labs; Start 01/04/17 at 10:45; Status UNV Potassium Chloride 50 ml @ 50 mls/hr PRN Q6HRS PRN IV For K < 3.7 Last administered on 01/05/17 13:10; Start 01/04/17 at 10:45 Potassium Chloride 50 ml @ 50 mls/hr PRN Q2HR PRN IV total of 40mEq for K < 3.5 Last administered on 01/04/17 13:46; Start 01/04/17 at 10:45 Albumin Human (Albuminar) 100 ml @ 100 mls/hr TID IV Last administered on 01/06 08:53; Start 01/04/17 at 14:00; Stop 01/06/17 at 09:59; Status DC Warfarin Sodium (Coumadin) 4 mg DAILY16 PO Last administered on 01/06/17 15:17 ; Start 01/04/17 at 17:00 Warfarin Sodium 1 each 1 each PRN DAILY PRN MC SEE COMMENTS Last administered on 4/27/17at 11:49; Start 01/04/17 at 17:00 Magnesium Sulfate/ Dextrose 100 ml @ 100 mls/hr 1X ONCE IV Last administered on 01/05/17 11:35; Start 01/05/17 at 11:00; Stop 01/05/17 at 11:59; Status DC Magnesium Sulfate/ Dextrose 50 ml @ 25 mls/hr PRN DAILY PRN IV for Mag < 1.7 on am labs; Start 01/05/17 at 11:00 Potassium Chloride (KCl Premix 20meq) 50 ml @ 25 mls/hr Q2HR IV Last administered on 01/05/17 23:42; Start 01/05/17 at 16:00; Stop 01/05/17 at 19:59 ; Status DC Iohexol (Omnipaque 300 Mg/ml) 60 ml 1X ONCE IV ; Start 01/05/17 at 16:15; Stop 01/05/17 at 16:16; Status DC Iohexol (Omnipaque 240 Mg/ml) 30 ml 1X ONCE PO Last administered on 01/05/17 15:45; Start 01/05/17 at 16:15; Stop 01/05/17 at 16:16; Status DC Info (Do NOT chart on this entry -- for MONITORING) 1 each PRN DAILY PRN MC SEE COMMENTS; Start 01/05/17 at 16:15; Stop 01/07/17 at 16:14 Albuterol/ Ipratropium (Duoneb) 3 ml RTQID NEB Last administered on 01/07/17 07:30; Start 01/05/17 at 20:00 Budesonide (Pulmicort) 0.5 mg RTBID NEB Last administered on 01/07/17 07:30; Start 01/05/17 at 20:00 Furosemide (Lasix) 20 mg 1X ONCE IVP Last administered on 01/05/17 22:04; Start 01/05/17 at 22:00; Stop 01/05/17 at 22:01; Status DC Albuterol Sulfate (Ventolin Neb Soln) 2.5 mg PRN Q6HRS PRN NEB SHORTNESS OF BREATH; Start 01/05/17 at 22:40 Active Scripts Active Reported Gabapentin 300 Mg Capsule 900 Mg PO TID Claritin (Loratadine) 10 Mg Tablet 1 Tab PO DAILY PRN Bactrim 400-80 Mg Tablet (Sulfamethoxazole/Trimethoprim) 1 Each Tablet 1 Tab PO BID Gabapentin 300 Mg Capsule 300 Mg PO TID Zestril (Lisinopril) 10 Mg Tablet 10 Mg PO DAILY Cyanocobalamin Injection (Cyanocobalamin (Vitamin B-12)) 1,000 Mcg/1 Ml Vial 1, 000 Mcg QMONTH Percocet 5-325 Mg Tablet (Oxycodone/Acetaminophen) 1 Each Tablet 1-2 Tab PO Q4- 6HRS Prilosec Otc (Omeprazole Magnesium) 20 Mg Tablet.dr 20 Mg PO DAILY Vitals/I & O Vital Sign - Last 24 Hours 01/06/17 01/06/17 01/06/17 01/06/17 11:00 11:06 15:00 15:41 Temp 97.7 97.7 97.7 97.7 Pulse 79 82 Resp 20 22 B/P 149/68 135/76 Pulse Ox 97 98 95 O2 Delivery Nasal Cannula Nasal Cannula Nasal Cannula Nasal Cannula O2 Flow Rate 2.0 3.0 2.0 01/06/17 01/06/17 01/06/17 01/06/17 19:05 19:45 19:45 20:20 Temp 97.7 97.7 Pulse 81 Resp 20 B/P 154/77 Pulse Ox 100 95 95 O2 Delivery Nasal Cannula Nasal Cannula Nasal Cannula Nasal Cannula O2 Flow Rate 2.0 2.0 2.0 2.0 01/06/17 01/06/17 01/06/17 01/07/17 20:54 22:00 23:00 03:00 Temp 97.3 97.6 97.3 97.6 Pulse 89 75 Resp 18 18 B/P 147/61 148/63 Pulse Ox 92 95 O2 Delivery Nasal Cannula Nasal Cannula Nasal Cannula Nasal Cannula O2 Flow Rate 2.0 2.0 01/07/17 01/07/17 01/07/17 07:00 07:33 07:36 Temp 97.6 97.6 Pulse 78 Resp 20 B/P 156/76 Pulse Ox 96 98 98 O2 Delivery Nasal Cannula Nasal Cannula Nasal Cannula O2 Flow Rate 2.0 4.0 4.0 Intake and Output 01/06/17 01/06/17 01/07/17 15:00 23:00 07:00 Intake Total 100 ml 485 ml 100 ml Output Total 1350 ml 500 ml Balance 100 ml -865 ml -400 ml LETICIA TREVINO MD Jan 07, 2017 09:02
[2017-01-07] MEDS: PANTOPRAZOLE 40 MG TABLET.DR. PO SCH (10:29)
[2017-01-07] MEDS: GABAPENTIN 300 MG CAPSULE. PO SCH ×3 (10:29→20:49)
--- NOTE | 2017-01-07 10:33 | PDOC ---
PROGRESS NOTES Chief Complaint Chief Complaint LE erythema and edema Acute metabolic encephalopathy ASSESSMENT AND PLAN: 1. Cellulitis B LE vs Gemzar/hypoalbuminemia ASE: on empiric Abx as per ID service. US LE 12/28 neg for DVT. 2. LE edema, bilat: suspect due to hypoalbuminemia, renal issues, gemzar capillary leak syndrome. with recovery of renal fxn, keep I&O neg 1L+; IV lasix PRN 3. R UE DVT at IJ: heparin, with conversion to coumadin. not quite therapeutic yet 4. ARTURO: oliguric ATN/ Gap metabolic acidosis. 2/2 gemzar. resolved 5. Hyperkalemia, hypokalemia: replete as indicated. 6. Hypomagnesemia: resolved 7. Hypocalcemia. s/p IV calcium. twitching resolved 8. Thrombocytopenia: resolving. suspect chemo induced 9. Cholangiocarcinoma STAGE 4: chemo currently on hold. F/U w/Dr Connell on O/P basis 10. Peripheral neuropathy: poss 2/2 chemo. on gabapentin, B12 11. Pancytopenia: 2/2 chemo 12. N/V, diarrhea with chemo: none here 13. GERD: on PPI 14. Hypoalbuminemia: due to malnutrition, malignancy. protein supplements 15. Dispo: home w/ services when INR therapeutic x24h. History of Present Illness History of Present Illness breathing ok, occas wheezing. CXR done: still congestion Vitals Vitals Vital Signs Date Time Temp Pulse Resp B/P Pulse Ox O2 Delivery O2 Flow Rate FiO2 01/07/17 07:36 98 Nasal Cannula 4.0 01/07/17 07:00 97.6 78 20 156/76 97.6 Physical Exam General: Alert, Oriented X3 Heart: Regular rate Lungs: Clear, Other (occas wheeze) Abdomen: Normal bowel sounds, Soft, No tenderness Extremities: Other (2+ edema Bilateral LE unchanged. right upper EXT edema ) Skin: Other (petechiae distal LE B) Labs LABS Laboratory Tests Test 01/06/17 12:00 01/06/17 18:15 01/07/17 04:40 01/07/17 05:00 Potassium Level 3.9mmol/L (3.5-5.1) 3.9mmol/L (3.5-5.1) 3.8mmol/L (3.5-5.1) Prothrombin Time 16.1SEC (11.7-14.0) Prothromb Time International Ratio 1.4 (0.8-1.1) Heparin Anti-Xa Act, Unfractionated 0.69IU/mL (0.30-0.70) Sodium Level 139mmol/L (136-145) Chloride Level 104mmol/L (98-107) Carbon Dioxide Level 28mmol/L (21-32) Anion Gap 7 (6-14) Blood Urea Nitrogen 11mg/dL (7-20) Creatinine 0.9mg/dL (0.6-1.0) Estimated GFR (Cockcroft-Gault) 62.5 BUN/Creatinine Ratio 12 (6-20) Glucose Level 85mg/dL (70-99) Calcium Level 8.1mg/dL (8.5-10.1) Magnesium Level 1.8mg/dL (1.8-2.4) Total Bilirubin 0.8mg/dL (0.2-1.0) Aspartate Amino Transf (AST/SGOT) 52U/L (15-37) Alanine Aminotransferase (ALT/SGPT) 34U/L (14-59) Alkaline Phosphatase 140U/L (46-116) Total Protein 5.8g/dL (6.4-8.2) Albumin 3.6g/dL (3.4-5.0) Albumin/Globulin Ratio 1.6 (1.0-1.7) White Blood Count 5.0x10^3/uL (4.0-11.0) Red Blood Count 2.20x10^6/uL (3.50-5.40) Hemoglobin 7.3g/dL (12.0-15.5) Hematocrit 21.8% (36.0-47.0) Mean Corpuscular Volume 99fL (79-100) Mean Corpuscular Hemoglobin 33pg (25-35) Mean Corpuscular Hemoglobin Concent 33g/dL (31-37) Red Cell Distribution Width 24.2% (11.5-14.5) Platelet Count 117x10^3/uL (140-400) Neutrophils (%) (Auto) 34% (31-73) Lymphocytes (%) (Auto) 14% (24-48) Monocytes (%) (Auto) 52% (0-9) Eosinophils (%) (Auto) 0% (0-3) Basophils (%) (Auto) 0% (0-3) Neutrophils # (Auto) 1.7x10^3uL (1.8-7.7) Lymphocytes # (Auto) 0.7x10^3/uL (1.0-4.8) Monocytes # (Auto) 2.6x10^3/uL (0.0-1.1) Eosinophils # (Auto) 0.0x10^3/uL (0.0-0.7) Basophils # (Auto) 0.0x10^3/uL (0.0-0.2) MARTY HUERTA MD Jan 07, 2017 10:33
[2017-01-07] MEDS: ACETAMINOPHEN 325 MG TABLET. PO PRN ×2 (10:42→16:02)
[2017-01-07 10:43] LABS: PHOSPHORUS 3.3 mg/dL (2.6-4.7)
[2017-01-07] MEDS ORDERED: FUROSEMIDE 40 MG/4 ML VIAL. IVP ONE (11:30)
[2017-01-07 11:31] VITALS: BP 155/69
--- NOTE | 2017-01-07 11:41 | RAD ---
Exam: PA and lateral chest radiograph History: Dyspnea. Comparison: 01/01/2017. Findings: Cardiac silhouette is enlarged. Right chest port and catheter are unchanged. There is interval removal of left internal jugular dialysis catheter. [id number] bilateral pleural effusions are seen. Interstitial thickening is seen. Findings probably represent ongoing congestive heart failure. Impression: Ongoing congestive heart failure.
--- NOTE | 2017-01-07 13:47 | PDOC ---
PULMONARY PROGRESS NOTES Vitals Vital Signs Date Time Temp Pulse Resp B/P Pulse Ox O2 Delivery O2 Flow Rate FiO2 01/07/17 12:08 Nasal Cannula 4.0 01/07/17 11:31 98.1 83 20 155/69 96 98.1 General: Alert, Oriented X4 HEENT: Other Lungs: Clear, Other (occas wheeze) Cardiovascular: S1, S2 Abdomen: Soft, Non-tender Extremities: Other Labs Laboratory Tests Test 01/06/17 05:00 01/06/17 12:00 01/06/17 18:15 01/07/17 04:40 White Blood Count 5.0x10^3/uL (4.0-11.0) Red Blood Count 2.26x10^6/uL (3.50-5.40) Hemoglobin 7.4g/dL (12.0-15.5) Hematocrit 22.1% (36.0-47.0) Mean Corpuscular Volume 98fL (79-100) Mean Corpuscular Hemoglobin 33pg (25-35) Mean Corpuscular Hemoglobin Concent 34g/dL (31-37) Red Cell Distribution Width 21.8% (11.5-14.5) Platelet Count 81x10^3/uL (140-400) Neutrophils (%) (Auto) 45% (31-73) Lymphocytes (%) (Auto) 14% (24-48) Monocytes (%) (Auto) 40% (0-9) Eosinophils (%) (Auto) 0% (0-3) Basophils (%) (Auto) 0% (0-3) Neutrophils # (Auto) 2.3x10^3uL (1.8-7.7) Lymphocytes # (Auto) 0.7x10^3/uL (1.0-4.8) Monocytes # (Auto) 2.0x10^3/uL (0.0-1.1) Eosinophils # (Auto) 0.0x10^3/uL (0.0-0.7) Basophils # (Auto) 0.0x10^3/uL (0.0-0.2) Prothrombin Time 15.6SEC (11.7-14.0) 16.1SEC (11.7-14.0) Prothromb Time International Ratio 1.3 (0.8-1.1) 1.4 (0.8-1.1) Heparin Anti-Xa Act, Unfractionated 0.51IU/mL (0.30-0.70) 0.69IU/mL (0.30-0.70) Sodium Level 137mmol/L (136-145) 139mmol/L (136-145) Potassium Level 4.0mmol/L (3.5-5.1) 3.9mmol/L (3.5-5.1) 3.9mmol/L (3.5-5.1) 3.8mmol/L (3.5-5.1) Chloride Level 103mmol/L (98-107) 104mmol/L (98-107) Carbon Dioxide Level 28mmol/L (21-32) 28mmol/L (21-32) Anion Gap 6 (6-14) 7 (6-14) Blood Urea Nitrogen 12mg/dL (7-20) 11mg/dL (7-20) Creatinine 1.0mg/dL (0.6-1.0) 0.9mg/dL (0.6-1.0) Estimated GFR (Cockcroft-Gault) 55.3 62.5 Glucose Level 86mg/dL (70-99) 85mg/dL (70-99) Calcium Level 8.1mg/dL (8.5-10.1) 8.1mg/dL (8.5-10.1) Phosphorus Level 3.0mg/dL (2.6-4.7) 3.3mg/dL (2.6-4.7) Magnesium Level 1.9mg/dL (1.8-2.4) 1.8mg/dL (1.8-2.4) Albumin 3.8g/dL (3.4-5.0) 3.6g/dL (3.4-5.0) BUN/Creatinine Ratio 12 (6-20) Total Bilirubin 0.8mg/dL (0.2-1.0) Aspartate Amino Transf (AST/SGOT) 52U/L (15-37) Alanine Aminotransferase (ALT/SGPT) 34U/L (14-59) Alkaline Phosphatase 140U/L (46-116) Total Protein 5.8g/dL (6.4-8.2) Albumin/Globulin Ratio 1.6 (1.0-1.7) Test 01/07/17 05:00 White Blood Count 5.0x10^3/uL (4.0-11.0) Red Blood Count 2.20x10^6/uL (3.50-5.40) Hemoglobin 7.3g/dL (12.0-15.5) Hematocrit 21.8% (36.0-47.0) Mean Corpuscular Volume 99fL (79-100) Mean Corpuscular Hemoglobin 33pg (25-35) Mean Corpuscular Hemoglobin Concent 33g/dL (31-37) Red Cell Distribution Width 24.2% (11.5-14.5) Platelet Count 117x10^3/uL (140-400) Neutrophils (%) (Auto) 34% (31-73) Lymphocytes (%) (Auto) 14% (24-48) Monocytes (%) (Auto) 52% (0-9) Eosinophils (%) (Auto) 0% (0-3) Basophils (%) (Auto) 0% (0-3) Neutrophils # (Auto) 1.7x10^3uL (1.8-7.7) Lymphocytes # (Auto) 0.7x10^3/uL (1.0-4.8) Monocytes # (Auto) 2.6x10^3/uL (0.0-1.1) Eosinophils # (Auto) 0.0x10^3/uL (0.0-0.7) Basophils # (Auto) 0.0x10^3/uL (0.0-0.2) Laboratory Tests Test 01/06/17 18:15 01/07/17 04:40 01/07/17 05:00 Potassium Level 3.9mmol/L (3.5-5.1) 3.8mmol/L (3.5-5.1) Prothrombin Time 16.1SEC (11.7-14.0) Prothromb Time International Ratio 1.4 (0.8-1.1) Heparin Anti-Xa Act, Unfractionated 0.69IU/mL (0.30-0.70) Sodium Level 139mmol/L (136-145) Chloride Level 104mmol/L (98-107) Carbon Dioxide Level 28mmol/L (21-32) Anion Gap 7 (6-14) Blood Urea Nitrogen 11mg/dL (7-20) Creatinine 0.9mg/dL (0.6-1.0) Estimated GFR (Cockcroft-Gault) 62.5 BUN/Creatinine Ratio 12 (6-20) Glucose Level 85mg/dL (70-99) Calcium Level 8.1mg/dL (8.5-10.1) Phosphorus Level 3.3mg/dL (2.6-4.7) Magnesium Level 1.8mg/dL (1.8-2.4) Total Bilirubin 0.8mg/dL (0.2-1.0) Aspartate Amino Transf (AST/SGOT) 52U/L (15-37) Alanine Aminotransferase (ALT/SGPT) 34U/L (14-59) Alkaline Phosphatase 140U/L (46-116) Total Protein 5.8g/dL (6.4-8.2) Albumin 3.6g/dL (3.4-5.0) Albumin/Globulin Ratio 1.6 (1.0-1.7) White Blood Count 5.0x10^3/uL (4.0-11.0) Red Blood Count 2.20x10^6/uL (3.50-5.40) Hemoglobin 7.3g/dL (12.0-15.5) Hematocrit 21.8% (36.0-47.0) Mean Corpuscular Volume 99fL (79-100) Mean Corpuscular Hemoglobin 33pg (25-35) Mean Corpuscular Hemoglobin Concent 33g/dL (31-37) Red Cell Distribution Width 24.2% (11.5-14.5) Platelet Count 117x10^3/uL (140-400) Neutrophils (%) (Auto) 34% (31-73) Lymphocytes (%) (Auto) 14% (24-48) Monocytes (%) (Auto) 52% (0-9) Eosinophils (%) (Auto) 0% (0-3) Basophils (%) (Auto) 0% (0-3) Neutrophils # (Auto) 1.7x10^3uL (1.8-7.7) Lymphocytes # (Auto) 0.7x10^3/uL (1.0-4.8) Monocytes # (Auto) 2.6x10^3/uL (0.0-1.1) Eosinophils # (Auto) 0.0x10^3/uL (0.0-0.7) Basophils # (Auto) 0.0x10^3/uL (0.0-0.2) Medications Active Scripts Medications Dose Route/Sig Days Date Category Gabapentin 300 Mg Capsule 900 Mg PO TID 01/03/17 Reported Claritin (Loratadine) 10 Mg Tablet 1 Tab PO DAILY PRN 11/22/16 Reported Bactrim 400-80 Mg Tablet (Sulfamethoxazole/Trimethoprim) 1 Each Tablet 1 Tab PO BID 11/22/16 Reported Gabapentin 300 Mg Capsule 300 Mg PO TID 11/22/16 Reported Zestril (Lisinopril) 10 Mg Tablet 10 Mg PO DAILY 11/22/16 Reported Cyanocobalamin Injection (Cyanocobalamin (Vitamin B-12)) 1,000 Mcg/1 Ml Vial 1,000 Mcg QMONTH 05/28/16 Reported Percocet 5-325 Mg Tablet (Oxycodone/Acetaminophen) 1 Each Tablet 1-2 Tab PO Q4-6HRS 05/28/16 Reported Prilosec Otc (Omeprazole Magnesium) 20 Mg Tablet. 20 Mg PO DAILY 05/28/16 Reported Impression . FULL NOTE DICTATED THANKS ACUTE PULMONARY EDEMA POSSIBLE TRAIL SEE ORDERS ROULA BALLESTEROS MD Jan 07, 2017 13:47
[2017-01-07 15:32] VITALS: BP 153/68
[2017-01-07] MEDS: WARFARIN 4 MG TABLET. PO SCH (16:02)
--- NOTE | 2017-01-07 18:14 | CARD ---
APPROVED REPORT EXAM: Two-dimensional and M-mode echocardiogram with Doppler and color Doppler. Other Information Quality : GoodHR: 80bpm Rhythm : NSR INDICATION Congestive Heart Failure 2D DIMENSIONS RVDd2.6 (2.9-3.5cm)Left Atrium(2D)3.2 (1.6-4.0cm) IVSd1.2 (0.7-1.1cm)Aortic Root(2D)3.4 (2.0-3.7cm) LVDd5.2 (3.9-5.9cm)LVOT Diameter2.4 (1.8-2.4cm) PWd1.2 (0.7-1.1cm)LVDs2.8 (2.5-4.0cm) FS (%) 45.2 %SV98.4 ml LVEF(%)76.2 (>50%) LEFT VENTRICLE Limited echo for CHF only. The left ventricle is normal size. There is mild concentric left ventricul ar hypertrophy. The left ventricular systolic function is normal and the ejection fraction is within normal range. The Ejection Fraction is >70%. There is normal LV segmental wall motion. Left ventricul ar compliance was not assessed at exam time. RIGHT VENTRICLE The right ventricle is normal size. There is normal right ventricular wall thickness. The right ventr icular systolic function is normal. ATRIA The left atrium size is normal. The right atrium size is normal. GREAT VESSELS The aortic root is normal in size. The IVC was not assessed. PERICARDIAL EFFUSION There are moderate bilateral pleural effusions. There is a trace loculated posterior pericardial effu radha. Critical Notification Critical Value: No <Conclusion> The left ventricular systolic function is normal and the ejection fraction is within normal range. Th e Ejection Fraction is >70%. There is normal LV segmental wall motion. There is mild concentric left ventricular hypertrophy. There are moderate bilateral pleural effusions.
[2017-01-07 19:00] VITALS: BP 152/70
[2017-01-07] MEDS: oxyCODONE/APAP 5/325 1 TAB TABLET PO PRN (20:54)
[2017-01-07 23:00] VITALS: BP 119/78
[2017-01-08] VITALS (12 sets, daily range): BP systolic 88–136; BP diastolic 45–68
--- NOTE | 2017-01-08 02:18 | CONS ---
DATE OF CONSULTATION: 01/07/2017 ATTENDING PHYSICIAN: Lorraine Rivera M.D. REASON FOR CONSULTATION: The patient is seen in pulmonary consultation at the request of Dr. Haney for acute respiratory distress and hypoxemia. HISTORY OF PRESENT ILLNESS: The patient is a 66-year-old female with a diagnosis of cholangiocarcinoma dating back to 06/2015. She underwent liver wedge resection revealing poorly-differentiated adenocarcinoma with mets to the hilar lymph nodes. She subsequently underwent adjuvant chemo with Gemzar and cisplatin. She completed 8 cycles of chemotherapy in 02/2016. CT in 09/2016 revealed worsening left gastric lymph nodes and periportal lymph nodes. Chemotherapy with Gemzar and Xeloda was initiated on 10/08/2016. She received three cycles. Treated on 12/24/2016. She became severely short of breath with anemia, hemoglobin of 7.5 on 12/24/2016. She was transfused on 12/27/2016. She was also noted to have severe weakness. She was admitted to the hospital on 12/27/2016. She was in acute renal failure. She was hypocalcemic, had a serum calcium level at 6.9. She had chills and worsening pedal edema. She was seen by Nephrology service. She was also seen by Infectious Diseases. She was started on antibiotics and hemodialysis. Her renal function has actually improved. She is being followed by Infectious Disease Service and is currently off of antibiotics, and in fact, ID signed off of her case. She became more short of breath. She was wheezing. She became hypoxic. She required oxygen supplementation and chest x-ray was obtained today, which revealed congestive failure. I was asked to see her in consultation. She is currently off of dialysis. Her renal function has actually improved. I reviewed all of her labs. She currently has a creatinine of 0.9. White count is normal at 5.8. She had a hemoglobin of 6.8 on 01/05/2017, today's hemoglobin is 7.3. The patient denies fever or chills. No productive cough. She has had some frothy pink sputum. PAST MEDICAL HISTORY: 1. Cholangiocarcinoma as described above, last time she received chemo was on 12/24/2016. 2. Recent acute renal failure related to suspect chemo. 3. DCIS of the left breast. 4. Iron deficiency anemia. 5. Metastatic cholangiocarcinoma to the left hilar region, status post Gemzar and cisplatin back in 2014. 6. No history of tobacco, asthma, DVT or pulmonary embolism. 7. Recent right upper extremity DVT, diagnosed on 01/02/2017. She is currently on heparin. 8. Peripheral neuropathy. PAST SURGICAL HISTORY: As above. FAMILY HISTORY: Negative for liver cancer. SOCIAL HISTORY: She has never smoked. REVIEW OF SYSTEMS: As indicated above; otherwise, a 10-point system was reviewed and negative. PHYSICAL EXAMINATION: GENERAL: The patient does not appear to be in any significant respiratory distress. VITAL SIGNS: Stable. O2 saturation currently greater than 92% on 2 liters. HEENT: Eyes: The sclerae were nonicteric. NECK: Jugular venous distention was not elevated. No lymphadenopathy. CHEST: Full expansion. LUNGS: Crackles in the bases with no wheezes. CARDIOVASCULAR: Regular rate and rhythm with S1 and S2. No S3. ABDOMEN: Soft. Some edema. EXTREMITIES: Marked edema with lymphedema and some skin changes compatible with venous insufficiency. NEUROLOGIC: The patient was awake, alert, following commands. A detailed neuro exam was not performed. LABORATORY AND IMAGING DATA: Labs as indicated above. Chest x-ray as indicated above. IMPRESSION: 1. Acute respiratory failure/distress, multifactorial, secondary to acute pulmonary edema. 2. Metastatic cholangiocarcinoma, status post recent chemotherapy, last received on 12/24/2016. 3. Acute renal failure, requiring hemodialysis, currently off of dialysis. 4. Acute blood loss anemia, status post transfusion. 5. Right upper extremity deep venous thrombosis, diagnosed on 01/02/2017. Continue anticoagulation. 6. Peripheral neuropathy. 7. Abnormal x-ray compatible with pulmonary edema. 8. Multiple other comorbidities. PLAN: 1. The patient was given stat IV Lasix. We will continue Lasix for several days and monitor renal function. 2. Obtain echocardiogram to assess ejection fraction. 3. If no improvement with Lasix, this could be related to TRALI, transfusion-related acute lung injury. 4. P.r.n. nebulized treatments. 5. Continue other support with heparin. 6. Correct electrolyte abnormalities. 7. If the patient should deteriorate, we will proceed with p.r.n. BiPAP. I do appreciate the privilege in sharing in the patient's care. The above was discussed with both the patient and her at the bedside. ROULA BALLESTEROS MD DR: Lisseth JOB#: [id number] / [id number]
[2017-01-08] MEDS: ACETAMINOPHEN 325 MG TABLET. PO PRN (03:23)
[2017-01-08 07:09] LABS: HEMOGLOBIN 7.1 g/dL (12.0-15.5); RED BLOOD COUNT 2.16 x10^6/uL (3.50-5.40); WHITE BLOOD COUNT 4.8 x10^3/uL (4.0-11.0)
[2017-01-08 07:10] LABS: BASO % 1 % (0-3); EOS % 1 % (0-3); HEMATOCRIT 21.8 % (36.0-47.0); LYMPH # 0.3 x10^3/uL (1.0-4.8); LYMPH % 13 % (24-48); MEAN CORPUSCULAR HEMOGLOBIN 33 pg (25-35); MEAN CORPUSCULAR HGB CONC 33 g/dL (31-37); MEAN CORPUSCULAR VOLUME 101 fL (79-100); MONO % 56 % (0-9); NEUT % 29 % (31-73); PLATELET COUNT 179 x10^3/uL (140-400); RED CELL DISTRIBUTION WIDTH 26.4 % (11.5-14.5)
[2017-01-08 07:34] LABS: INR 1.6 (0.8-1.1)
[2017-01-08] MEDS: BUDESONIDE 0.5 MG/2 ML NEBU. NEB SCH ×2 (08:20→19:27)
[2017-01-08] MEDS: IPRATRPIUM/ALBUTEROL 0.5/2.5MG 3 ML NEBU. NEB SCH ×4 (08:20→19:27)
[2017-01-08] MEDS: FUROSEMIDE 40 MG/4 ML VIAL. IVP SCH (09:27)
[2017-01-08] MEDS: PANTOPRAZOLE 40 MG TABLET.DR. PO SCH (09:27)
[2017-01-08] MEDS: GABAPENTIN 300 MG CAPSULE. PO SCH ×3 (09:28→21:00)
[2017-01-08 10:21] LABS: ALBUMIN 3.3 g/dL (3.4-5.0); GFR 55.3; NUCLEATED RBC 1; PHOSPHORUS 4.3 mg/dL (2.6-4.7); PLT ESTIMATE ADEQUATE (ADEQUATE); POTASSIUM 3.7 mmol/L (3.5-5.1)
[2017-01-08 10:22] LABS: ANISOCYTOSIS PRESENT; POLYCHROMASIA PRESENT
[2017-01-08] MEDS: oxyCODONE/APAP 5/325 1 TAB TABLET PO PRN ×2 (12:43→20:16)
[2017-01-08] MEDS: HEPARIN 25,000UTS/500ML PREMIX 500 ML IV PRN (13:35)
--- NOTE | 2017-01-08 14:37 | RAD ---
Limited sonography of the abdomen Clinical indications: Lump in the left upper quadrant. Possible hematoma. Findings: Sonography of the palpable lump of the left upper quadrant was performed. There is a large hypoechoic avascular mass measuring 17.7 m x 10.5 cm x 10.9 cm in size consistent with a hematoma. IMPRESSION: 17.7 cm hypoechoic avascular mass of the left upper quadrant corresponding to the palpable lump. This is consistent with a hematoma. Recommend continued clinical follow-up with regard to decrease in size of this mass.
--- NOTE | 2017-01-08 15:46 | PDOC ---
PROGRESS NOTES Chief Complaint Chief Complaint CC: Chills, feeling cold -cellulitis bilaterally lower extremities -acute renal failure -cholangiocarcinoma -hypertension -peripheral neuropathy -DVT -PE -Cholecystectomy -hysterectomy -oophorectomy -salpingectomy -UTI -anxiety -skin cancer History of Present Illness History of Present Illness Ms. Bruno was sitting upright in her chair when we visited her. She had her and son with her at the time, and we discussed her case with them. We also discussed the case with the nurse. She reports she is breathing better. She does describe experiencing LLQ abdominal pain. She described having mild tenderness over the left wrist. It did not illicit significant pain when palpated. Vitals Vitals Vital Signs Date Time Temp Pulse Resp B/P Pulse Ox O2 Delivery O2 Flow Rate FiO2 01/08/17 15:00 97.7 91 20 104/68 100 Nasal Cannula 3.0 97.7 Physical Exam General: Alert, No acute distress Heart: Regular rate, Normal S1, Normal S2 Lungs: Clear, Other (Wheezing resolved) Abdomen: Soft, No masses Extremities: No clubbing, No cyanosis Skin: No rashes, Other (Legs have petechiae and edema distally.) Labs LABS Laboratory Tests Test 01/08/17 06:00 01/08/17 12:30 White Blood Count 4.8x10^3/uL (4.0-11.0) Red Blood Count 2.16x10^6/uL (3.50-5.40) Hemoglobin 7.1g/dL (12.0-15.5) Hematocrit 21.8% (36.0-47.0) Mean Corpuscular Volume 101fL (79-100) Mean Corpuscular Hemoglobin 33pg (25-35) Mean Corpuscular Hemoglobin Concent 33g/dL (31-37) Red Cell Distribution Width 26.4% (11.5-14.5) Platelet Count 179x10^3/uL (140-400) Neutrophils (%) (Auto) 29% (31-73) Lymphocytes (%) (Auto) 13% (24-48) Monocytes (%) (Auto) 56% (0-9) Eosinophils (%) (Auto) 1% (0-3) Basophils (%) (Auto) 1% (0-3) Neutrophils # (Auto) 1.4x10^3uL (1.8-7.7) Lymphocytes # (Auto) 0.3x10^3/uL (1.0-4.8) Monocytes # (Auto) 2.7x10^3/uL (0.0-1.1) Eosinophils # (Auto) 0.0x10^3/uL (0.0-0.7) Basophils # (Auto) 0.0x10^3/uL (0.0-0.2) Segmented Neutrophils % 24% (35-66) Band Neutrophils % 1% (0-9) Lymphocytes % 15% (24-48) Atypical Lymphocytes % (Manual) 1% (0-0) Monocytes % 59% (0-10) Nucleated Red Blood Cells 1 Platelet Estimate Adequate (ADEQUATE) Polychromasia Present Anisocytosis Present Macrocytosis Present Prothrombin Time 18.0SEC (11.7-14.0) Prothromb Time International Ratio 1.6 (0.8-1.1) Heparin Anti-Xa Act, Unfractionated 0.98IU/mL (0.30-0.70) 0.84IU/mL (0.30-0.70) Sodium Level 141mmol/L (136-145) Potassium Level 3.7mmol/L (3.5-5.1) Chloride Level 105mmol/L (98-107) Carbon Dioxide Level 29mmol/L (21-32) Anion Gap 7 (6-14) Blood Urea Nitrogen 12mg/dL (7-20) Creatinine 1.0mg/dL (0.6-1.0) Estimated GFR (Cockcroft-Gault) 55.3 Glucose Level 88mg/dL (70-99) Calcium Level 8.0mg/dL (8.5-10.1) Phosphorus Level 4.3mg/dL (2.6-4.7) Magnesium Level 1.6mg/dL (1.8-2.4) Albumin 3.3g/dL (3.4-5.0) Review of Systems Review of Systems Ms. Bruno does not report having any symptoms of nausea or vomiting. She has not had any dizziness. She has not experienced any weakness. Assessment and Plan Assessmemt and Plan Problems Medical Problems: (1) Cellulitis Status: Acute Ms. Bruno is a 66 year old female who initially presented with chills and feeling cold. -cellulitis bilaterally lower extremities -acute renal failure -cholangiocarcinoma -hypertension -peripheral neuropathy -DVT -PE -Cholecystectomy -hysterectomy -oophorectomy -salpingectomy -UTI -anxiety -skin cancer Plan: 1. Convert heparin to warfarin once hit INR target 2. Starting albumin 25% qd for 3d 4. Transfusing 2 units packed rbc's 5. Continue nebulized albuterol/ipratropium prn per pulmonology 6. Continue Percocet and acetaminophen as needed for pain 7. Continue pantoprazole as needed for GERD 8. Continue magnesium as needed for hypomagnesemia 9. Continue furosemide for edema 10. PT/OT 11. Recheck labs 12. Ultrasound findings noted 13. Appreciate consultation from subspecialists Problems: Comment Review of Relevant I have reviewed the following items ketty (where applicable) has been applied. Labs Laboratory Tests Test 01/06/17 18:15 01/07/17 04:40 01/07/17 05:00 01/08/17 06:00 Potassium Level 3.9mmol/L (3.5-5.1) 3.8mmol/L (3.5-5.1) 3.7mmol/L (3.5-5.1) Prothrombin Time 16.1SEC (11.7-14.0) 18.0SEC (11.7-14.0) Prothromb Time International Ratio 1.4 (0.8-1.1) 1.6 (0.8-1.1) Heparin Anti-Xa Act, Unfractionated 0.69IU/mL (0.30-0.70) 0.98IU/mL (0.30-0.70) Sodium Level 139mmol/L (136-145) 141mmol/L (136-145) Chloride Level 104mmol/L (98-107) 105mmol/L (98-107) Carbon Dioxide Level 28mmol/L (21-32) 29mmol/L (21-32) Anion Gap 7 (6-14) 7 (6-14) Blood Urea Nitrogen 11mg/dL (7-20) 12mg/dL (7-20) Creatinine 0.9mg/dL (0.6-1.0) 1.0mg/dL (0.6-1.0) Estimated GFR (Cockcroft-Gault) 62.5 55.3 BUN/Creatinine Ratio 12 (6-20) Glucose Level 85mg/dL (70-99) 88mg/dL (70-99) Calcium Level 8.1mg/dL (8.5-10.1) 8.0mg/dL (8.5-10.1) Phosphorus Level 3.3mg/dL (2.6-4.7) 4.3mg/dL (2.6-4.7) Magnesium Level 1.8mg/dL (1.8-2.4) 1.6mg/dL (1.8-2.4) Total Bilirubin 0.8mg/dL (0.2-1.0) Aspartate Amino Transf (AST/SGOT) 52U/L (15-37) Alanine Aminotransferase (ALT/SGPT) 34U/L (14-59) Alkaline Phosphatase 140U/L (46-116) Total Protein 5.8g/dL (6.4-8.2) Albumin 3.6g/dL (3.4-5.0) 3.3g/dL (3.4-5.0) Albumin/Globulin Ratio 1.6 (1.0-1.7) White Blood Count 5.0x10^3/uL (4.0-11.0) 4.8x10^3/uL (4.0-11.0) Red Blood Count 2.20x10^6/uL (3.50-5.40) 2.16x10^6/uL (3.50-5.40) Hemoglobin 7.3g/dL (12.0-15.5) 7.1g/dL (12.0-15.5) Hematocrit 21.8% (36.0-47.0) 21.8% (36.0-47.0) Mean Corpuscular Volume 99fL (79-100) 101fL (79-100) Mean Corpuscular Hemoglobin 33pg (25-35) 33pg (25-35) Mean Corpuscular Hemoglobin Concent 33g/dL (31-37) 33g/dL (31-37) Red Cell Distribution Width 24.2% (11.5-14.5) 26.4% (11.5-14.5) Platelet Count 117x10^3/uL (140-400) 179x10^3/uL (140-400) Neutrophils (%) (Auto) 34% (31-73) 29% (31-73) Lymphocytes (%) (Auto) 14% (24-48) 13% (24-48) Monocytes (%) (Auto) 52% (0-9) 56% (0-9) Eosinophils (%) (Auto) 0% (0-3) 1% (0-3) Basophils (%) (Auto) 0% (0-3) 1% (0-3) Neutrophils # (Auto) 1.7x10^3uL (1.8-7.7) 1.4x10^3uL (1.8-7.7) Lymphocytes # (Auto) 0.7x10^3/uL (1.0-4.8) 0.3x10^3/uL (1.0-4.8) Monocytes # (Auto) 2.6x10^3/uL (0.0-1.1) 2.7x10^3/uL (0.0-1.1) Eosinophils # (Auto) 0.0x10^3/uL (0.0-0.7) 0.0x10^3/uL (0.0-0.7) Basophils # (Auto) 0.0x10^3/uL (0.0-0.2) 0.0x10^3/uL (0.0-0.2) Segmented Neutrophils % 24% (35-66) Band Neutrophils % 1% (0-9) Lymphocytes % 15% (24-48) Atypical Lymphocytes % (Manual) 1% (0-0) Monocytes % 59% (0-10) Nucleated Red Blood Cells 1 Platelet Estimate Adequate (ADEQUATE) Polychromasia Present Anisocytosis Present Macrocytosis Present Test 01/08/17 12:30 Heparin Anti-Xa Act, Unfractionated 0.84IU/mL (0.30-0.70) Laboratory Tests Test 01/08/17 06:00 01/08/17 12:30 White Blood Count 4.8x10^3/uL (4.0-11.0) Red Blood Count 2.16x10^6/uL (3.50-5.40) Hemoglobin 7.1g/dL (12.0-15.5) Hematocrit 21.8% (36.0-47.0) Mean Corpuscular Volume 101fL (79-100) Mean Corpuscular Hemoglobin 33pg (25-35) Mean Corpuscular Hemoglobin Concent 33g/dL (31-37) Red Cell Distribution Width 26.4% (11.5-14.5) Platelet Count 179x10^3/uL (140-400) Neutrophils (%) (Auto) 29% (31-73) Lymphocytes (%) (Auto) 13% (24-48) Monocytes (%) (Auto) 56% (0-9) Eosinophils (%) (Auto) 1% (0-3) Basophils (%) (Auto) 1% (0-3) Neutrophils # (Auto) 1.4x10^3uL (1.8-7.7) Lymphocytes # (Auto) 0.3x10^3/uL (1.0-4.8) Monocytes # (Auto) 2.7x10^3/uL (0.0-1.1) Eosinophils # (Auto) 0.0x10^3/uL (0.0-0.7) Basophils # (Auto) 0.0x10^3/uL (0.0-0.2) Segmented Neutrophils % 24% (35-66) Band Neutrophils % 1% (0-9) Lymphocytes % 15% (24-48) Atypical Lymphocytes % (Manual) 1% (0-0) Monocytes % 59% (0-10) Nucleated Red Blood Cells 1 Platelet Estimate Adequate (ADEQUATE) Polychromasia Present Anisocytosis Present Macrocytosis Present Prothrombin Time 18.0SEC (11.7-14.0) Prothromb Time International Ratio 1.6 (0.8-1.1) Heparin Anti-Xa Act, Unfractionated 0.98IU/mL (0.30-0.70) 0.84IU/mL (0.30-0.70) Sodium Level 141mmol/L (136-145) Potassium Level 3.7mmol/L (3.5-5.1) Chloride Level 105mmol/L (98-107) Carbon Dioxide Level 29mmol/L (21-32) Anion Gap 7 (6-14) Blood Urea Nitrogen 12mg/dL (7-20) Creatinine 1.0mg/dL (0.6-1.0) Estimated GFR (Cockcroft-Gault) 55.3 Glucose Level 88mg/dL (70-99) Calcium Level 8.0mg/dL (8.5-10.1) Phosphorus Level 4.3mg/dL (2.6-4.7) Magnesium Level 1.6mg/dL (1.8-2.4) Albumin 3.3g/dL (3.4-5.0) Microbiology 12/27/16 Blood Culture - Final, Complete NO GROWTH AFTER 5 DAYS 12/31/16 Urine Culture - Final, Complete 12/31/16 Urine Culture Result 1 (MANE) - Final, Complete Medications Current Medications Acetaminophen (Tylenol) 650 mg 1X ONCE PO Last administered on 12/27/16 09:11 ; Start 12/27/16 at 08:15; Stop 12/27/16 at 08:22; Status DC Diphenhydramine HCl (Benadryl) 25 mg 1X ONCE PO Last administered on 09:12; Start 12/27/16 at 08:15; Stop 12/27/16 at 08:22; Status DC Furosemide (Lasix) 20 mg 1X ONCE IVP ; Start 12/27/16 at 08:15; Stop 12/27/16 at 08:22; Status DC Fentanyl Citrate (Fentanyl 2ml Vial) 25 mcg PRN QID PRN IV PAIN; Start at 16:45; Stop 12/29/16 at 21:00; Status DC Lisinopril (Prinivil) 10 mg DAILY PO ; Start 12/28/16 at 09:00; Stop 12/28/16 at 09:00; Status DC Oxycodone/ Acetaminophen (Percocet 5/325) 1 tab Q4HRS PRN PO MILD/MODERATE PAIN Last administered on 01/08/17 12:43; Start 12/27/16 at 16:45 Gabapentin (Neurontin) 300 mg TID PO Last administered on 12/28/16 10:44; Start 12/27/16 at 21:00; Stop 12/28/16 at 15:23; Status DC Cetirizine HCl (Zyrtec) 10 mg PRN DAILY PRN PO ALLERGIES; Start 12/28/16 at 09: 00 Pantoprazole Sodium (Protonix) 40 mg DAILYAC PO Last administered on 01/08/17 09:27; Start 12/28/16 at 07:30 Oxycodone/ Acetaminophen 2 tab 2 tab Q4HRS PRN PO SEVERE PAIN Last administered on 01/07/17 20:54; Start 12/27/16 at 16:45 Sodium Chloride (Iv Sodium Chloride 0.9% 1000ml Bag) 1,000 ml @ 75 mls/hr [id number] IV Last administered on 12/28/16 07:12; Start 12/27/16 at 17:30; Stop 12/28/16 at 08:15; Status DC Piperacillin Sod/ Tazobactam Sod (Zosyn Per Pharmacy) 1 each PRN DAILY PRN MC SEE COMMENTS; Start 12/27/16 at 17:30; Stop 12/28/16 at 07:27; Status DC Vancomycin HCl 1 each 1 each PRN DAILY PRN MC SEE COMMENTS Last administered on 12/27/16 18:45; Start 12/27/16 at 17:30; Stop 12/27/16 at 18:51; Status DC Vancomycin HCl 2 gm/Sodium Chloride 500 ml @ 250 mls/hr 1X ONCE IV ; Start at 17:45; Stop 12/27/16 at 18:51; Status DC Piperacillin Sod/ Tazobactam Sod 3.375 gm/Sodium Chloride 50 ml @ 100 mls/hr 1X ONCE IV Last administered on 12/27/16 18:07; Start 12/27/16 at 18:00; Stop 12/27/16 at 18:29; Status DC Piperacillin Sod/ Tazobactam Sod 2.25 gm/Sodium Chloride 50 ml @ 100 mls/hr Q6HRS IV Last administered on 12/28/16 06:08; Start 12/28/16 at 00:00; Stop at 07:31; Status DC Vancomycin HCl 1.5 gm/Sodium Chloride 500 ml @ 250 mls/hr Q48H IV ; Start 12/29 at 20:00; Stop 12/29/16 at 20:00; Status DC Micafungin Sodium 100 mg/Dextrose 100 ml @ 100 mls/hr Q24H IV Last administered on 12/31/16 09:13; Start 12/28/16 at 08:00; Stop 12/31/16 at 10:43 ; Status DC Linezolid 300 ml @ 300 mls/hr Q12HR IV Last administered on 12/31/16 09:13; Start 12/28/16 at 09:00; Stop 12/31/16 at 10:43; Status DC Piperacillin Sod/ Tazobactam Sod 2.25 gm/Sodium Chloride 50 ml @ 100 mls/hr Q8HRS IV Last administered on 01/03/17 06:04; Start 12/28/16 at 14:00; Stop at 13:01; Status DC Calcium Chloride 2000 mg/Sodium Chloride 120 ml @ 240 mls/hr 1X ONCE IV Last administered on 12/28/16 08:54; Start 12/28/16 at 08:00; Stop 12/28/16 at 08:29 ; Status DC Magnesium Sulfate/ Dextrose (Magnesium Sulfate PREMIX 2GM) 50 ml @ 25 mls/hr PRN DAILY PRN IV for Mag < 1.7 on am labs Last administered on 01/04/17 09:50 ; Start 12/28/16 at 08:15; Stop 01/06/17 at 11:48; Status DC Sodium Bicarbonate 50 meq 50 meq Q2H IV Last administered on 12/28/16 15:33; Start 12/28/16 at 08:30; Stop 12/28/16 at 10:31; Status DC Sodium Chloride 500 ml @ 0 mls/hr PRN QID PRN IV UO< 30cc/hr over previous 6hrs ; Start 12/28/16 at 08:15; Stop 01/03/17 at 18:34; Status DC Sodium Bicarbonate/ Dextrose 1,150 ml @ 100 mls/hr [id number] IV Last administered on 12/30/16 06:08; Start 12/28/16 at 09:00; Stop 12/30/16 at 08:59 ; Status DC Heparin Sodium (Porcine) (Heparin Sodium) 10,000 unit STK-MED ONCE .ROUTE ; Start 12/28/16 at 08:46; Stop 12/28/16 at 08:47; Status DC Lidocaine/Sodium Bicarbonate 20 ml 20 ml STK-MED ONCE IJ ; Start 12/28/16 at 08: 47; Stop 12/28/16 at 08:48; Status DC Heparin Sodium/ Sodium Chloride 500 ml @ As Directed STK-MED ONCE .ROUTE ; Start 12/28/16 at 08:47; Stop 12/28/16 at 08:48; Status DC Lidocaine/Sodium Bicarbonate (Buffered Lidocaine 1%) 3 ml 1X ONCE IJ Last administered on 12/28/16 10:10; Start 12/28/16 at 09:00; Stop 12/28/16 at 09:01 ; Status DC Heparin Sodium/ Sodium Chloride 60 unit 1X ONCE IV Last administered on 10:11; Start 12/28/16 at 09:00; Stop 12/28/16 at 09:01; Status DC Heparin Sodium (Porcine) (Heparin Sodium) 2,500 unit 1X ONCE INT CAT Last administered on 12/28/16 10:10; Start 12/28/16 at 09:00; Stop 12/28/16 at 09:01 ; Status DC Midazolam HCl (Versed) 2 mg STK-MED ONCE .ROUTE ; Start 12/28/16 at 09:41; Stop 12/28/16 at 09:42; Status DC Saliva Substitute (Biotene Moisturizing Mouth) 2 spray PRN Q15MIN PRN PO DRY MOUTH Last administered on 12/31/16 17:53; Start 12/28/16 at 13:15 Gabapentin (Neurontin) 300 mg DAILY PO Last administered on 01/03/17 09:06; Start 12/29/16 at 09:00; Stop 01/03/17 at 18:21; Status DC Acetaminophen (Tylenol) 650 mg PRN Q6HRS PRN PO MILD PAIN Last administered on 01/08/17 03:23; Start 12/28/16 at 18:15 Ondansetron HCl (Zofran) 4 mg PRN Q6HRS PRN IV NAUSEA/VOMITING Last administered on 12/29/16 11:10; Start 12/29/16 at 10:45; Stop 12/29/16 at 13:53 ; Status DC Ondansetron HCl (Zofran) 8 mg PRN Q8HRS PRN IV NAUSEA/VOMITING Last administered on 12/31/16 03:35; Start 12/29/16 at 14:00; Stop 12/31/16 at 09:03 ; Status DC Prochlorperazine Edisylate 10 mg 10 mg 1X ONCE IV Last administered on 14:00; Start 12/29/16 at 14:00; Stop 12/29/16 at 14:01; Status DC Sodium Chloride 500 ml @ 500 mls/hr 1X ONCE IV Last administered on 23:20; Start 12/29/16 at 23:30; Stop 12/30/16 at 00:29; Status DC Sodium Chloride 500 ml @ 500 mls/hr 1X ONCE IV Last administered on 00:05; Start 12/30/16 at 00:00; Stop 12/30/16 at 00:59; Status DC Sodium Chloride 1,000 ml @ 1,000 mls/hr Q1H PRN IV hypotension; Start 12/30/16 at 08:03; Stop 12/30/16 at 14:02; Status DC Albumin Human (Albuminar) 200 ml @ 200 mls/hr 1X PRN PRN IV Hypotension Last administered on 12/30/16 09:22; Start 12/30/16 at 08:15; Stop 12/30/16 at 14:14 ; Status DC Sodium Chloride (Normal Saline Flush) 10 ml 1X PRN PRN IV AP catheter pack; Start 12/30/16 at 08:15; Stop 12/31/16 at 08:14; Status DC Sodium Chloride (Normal Saline Flush) 10 ml 1X PRN PRN IV [employer] catheter pack; Start 12/30/16 at 08:15; Stop 12/31/16 at 08:14; Status DC Info (PHARMACY MONITORING -- do not chart) 1 each PRN DAILY PRN MC SEE COMMENTS ; Start 12/30/16 at 08:15; Stop 01/08/17 at 12:44; Status DC Info (PHARMACY MONITORING -- do not chart) 1 each PRN DAILY PRN MC SEE COMMENTS ; Start 12/30/16 at 08:15; Status UNV Paricalcitol (Zemplar) 5 mcg 3X/WEEK IV Last administered on 01/03/17 09:06; Start 12/31/16 at 09:00; Stop 01/04/17 at 11:03; Status DC Calcium Acetate 1334 mg 1,334 mg TIDWMEALS PO Last administered on 01/04/17 09 :46; Start 12/30/16 at 12:00; Stop 01/04/17 at 11:03; Status DC Albumin Human (Plasmanate) 500 ml @ 120 mls/hr Q4HRS IV Last administered on 16:45; Start 12/30/16 at 12:00; Stop 12/30/16 at 19:59; Status DC Ondansetron HCl (Zofran) 8 mg PRN Q6HRS PRN IV NAUSEA/VOMITING, 2ND CHOICE Last administered on 01/03/17 08:59; Start 12/31/16 at 08:58 Lorazepam (Ativan) 0.5 mg PRN Q4HRS PRN IV ANXIETY / AGITATION Last administered on 01/08/17 12:50; Start 12/31/16 at 09:00 Prochlorperazine Edisylate (Compazine) 10 mg PRN Q6HRS PRN IM NAUSEA/VOMITING Last administered on 12/31/16 09:15; Start 12/31/16 at 09:00; Stop 01/01/17 at 11:48; Status DC Metoclopramide HCl 5 mg 5 mg PRN Q6HRS PRN IV NAUSEA/VOMITING, 1ST CHOICE Last administered on 01/01/17 09:42; Start 12/31/16 at 11:45 Magnesium Sulfate/ Dextrose 50 ml @ 25 mls/hr 1X ONCE IV Last administered on 12/31/16 17:54; Start 12/31/16 at 15:00; Stop 12/31/16 at 16:59; Status DC Albumin Human (Plasmanate) 500 ml @ 75 mls/hr Q6H40M IV Last administered on 03:44; Start 12/31/16 at 15:15; Stop 01/01/17 at 11:14; Status DC Prochlorperazine Edisylate (Compazine) 10 mg PRN Q6HRS PRN IV NAUSEA/VOMITING, 3RD CHOICE Last administered on 01/01/17 17:38; Start 01/01/17 at 11:45 Potassium Chloride (Klor-Con) 40 meq 1X ONCE PO Last administered on 13:02; Start 01/01/17 at 12:00; Stop 01/01/17 at 12:01; Status DC Furosemide (Lasix) 40 mg 1X ONCE IVP Last administered on 01/01/17 14:24; Start 01/01/17 at 14:00; Stop 01/01/17 at 14:01; Status DC Albuterol/ Ipratropium (Duoneb) 3 ml PRN Q6HRS PRN NEB SHORTNESS OF BREATH Last administered on 01/05/17 11:26; Start 01/01/17 at 13:45; Stop 01/05/17 at 22:40; Status DC Furosemide (Lasix) 40 mg 1X ONCE IVP Last administered on 01/02/17 11:43; Start 01/02/17 at 10:45; Stop 01/02/17 at 10:46; Status DC Potassium Chloride 40 meq 40 meq 1X ONCE PO Last administered on 01/02/17 13: 21; Start 01/02/17 at 13:15; Stop 01/02/17 at 13:16; Status DC Heparin Sodium/ Dextrose 500 ml @ 0 mls/hr CONT PRN IV SEE I/O RECORD Last administered on 01/08/17 13:35; Start 01/02/17 at 14:45 Heparin Sodium (Porcine) (Heparin Sodium) 3,150 unit PRN Q6HRS PRN IV FOR UFH LEVEL LESS THAN 0.2; Start 01/02/17 at 14:45 Heparin Sodium (Porcine) (Heparin Sodium) 1,550 unit PRN Q6HRS PRN IV FOR UFH LEVEL 0.2 - 0.29; Start 01/02/17 at 14:45 Warfarin Sodium (Coumadin Per Pharmacy) 1 each PRN DAILY PRN MC PER PROTOCOL Last administered on 01/03/17 11:34; Start 01/02/17 at 14:45; Stop 01/03/17 at 23:01; Status DC Warfarin Sodium (Coumadin) 5 mg 1X WARF ONCE PO Last administered on 17:41; Start 01/02/17 at 16:00; Stop 01/02/17 at 16:01; Status DC Warfarin Sodium (Coumadin - No Dose Today) 1 each 1X WARF ONCE MC ; Start 01/03 at 16:00; Stop 01/03/17 at 23:01; Status DC Cefpodoxime Proxetil (Vantin) 200 mg BID PO Last administered on 01/05/17 08: 53; Start 01/03/17 at 21:00; Stop 01/05/17 at 09:37; Status DC Cyanocobalamin (Vitamin B-12) 1,000 mcg QMONTH IM Last administered on 09:49; Start 01/04/17 at 09:00 Gabapentin 900 mg 900 mg TID PO Last administered on 01/08/17 09:28; Start at 21:00 Sodium Chloride (Iv Sodium Chloride 0.9% 1000ml Bag) 1,000 ml @ 75 mls/hr [id number] IV Last administered on 01/04/17 09:46; Start 01/03/17 at 18:45; Stop 01/04/17 at 11:04; Status DC Potassium Chloride 20 meq 20 meq 1X ONCE PO Last administered on 01/03/17 18: 56; Start 01/03/17 at 18:45; Stop 01/03/17 at 18:46; Status DC Magnesium Sulfate/ Dextrose 50 ml @ 25 mls/hr PRN DAILY PRN IV for Mag < 1.7 on am labs; Start 01/04/17 at 10:45; Status UNV Potassium Chloride 50 ml @ 50 mls/hr PRN Q6HRS PRN IV For K < 3.7 Last administered on 01/05/17 13:10; Start 01/04/17 at 10:45 Potassium Chloride 50 ml @ 50 mls/hr PRN Q2HR PRN IV total of 40mEq for K < 3.5 Last administered on 01/04/17 13:46; Start 01/04/17 at 10:45 Albumin Human (Albuminar) 100 ml @ 100 mls/hr TID IV Last administered on 01/06 08:53; Start 01/04/17 at 14:00; Stop 01/06/17 at 09:59; Status DC Warfarin Sodium (Coumadin) 4 mg DAILY16 PO Last administered on 01/07/17 16:02 ; Start 01/04/17 at 17:00 Warfarin Sodium 1 each 1 each PRN DAILY PRN MC SEE COMMENTS Last administered on 01/08/17 12:40; Start 01/04/17 at 17:00 Magnesium Sulfate/ Dextrose 100 ml @ 100 mls/hr 1X ONCE IV Last administered on 01/05/17 11:35; Start 01/05/17 at 11:00; Stop 01/05/17 at 11:59; Status DC Magnesium Sulfate/ Dextrose 50 ml @ 25 mls/hr PRN DAILY PRN IV for Mag < 1.7 on am labs Last administered on 01/08/17 09:27; Start 01/05/17 at 11:00 Potassium Chloride (KCl Premix 20meq) 50 ml @ 25 mls/hr Q2HR IV Last administered on 01/05/17 23:42; Start 01/05/17 at 16:00; Stop 01/05/17 at 19:59 ; Status DC Iohexol (Omnipaque 300 Mg/ml) 60 ml 1X ONCE IV ; Start 01/05/17 at 16:15; Stop 01/05/17 at 16:16; Status DC Iohexol (Omnipaque 240 Mg/ml) 30 ml 1X ONCE PO Last administered on 01/05/17 15:45; Start 01/05/17 at 16:15; Stop 01/05/17 at 16:16; Status DC Info (Do NOT chart on this entry -- for MONITORING) 1 each PRN DAILY PRN MC SEE COMMENTS; Start 01/05/17 at 16:15; Stop 01/07/17 at 16:14; Status DC Albuterol/ Ipratropium (Duoneb) 3 ml RTQID NEB Last administered on 01/08/17 12:13; Start 01/05/17 at 20:00 Budesonide (Pulmicort) 0.5 mg RTBID NEB Last administered on 01/08/17 08:20; Start 01/05/17 at 20:00 Furosemide (Lasix) 20 mg 1X ONCE IVP Last administered on 01/05/17 22:04; Start 01/05/17 at 22:00; Stop 01/05/17 at 22:01; Status DC Albuterol Sulfate (Ventolin Neb Soln) 2.5 mg PRN Q6HRS PRN NEB SHORTNESS OF BREATH Last administered on 01/08/17 03:37; Start 01/05/17 at 22:40 Furosemide (Lasix) 40 mg 1X ONCE IVP Last administered on 01/07/17 11:50; Start 01/07/17 at 11:30; Stop 01/07/17 at 11:31; Status DC Furosemide (Lasix) 40 mg DAILY IVP Last administered on 01/08/17 09:27; Start 01/08/17 at 09:00 Active Scripts Active Reported Gabapentin 300 Mg Capsule 900 Mg PO TID Claritin (Loratadine) 10 Mg Tablet 1 Tab PO DAILY PRN Bactrim 400-80 Mg Tablet (Sulfamethoxazole/Trimethoprim) 1 Each Tablet 1 Tab PO BID Gabapentin 300 Mg Capsule 300 Mg PO TID Zestril (Lisinopril) 10 Mg Tablet 10 Mg PO DAILY Cyanocobalamin Injection (Cyanocobalamin (Vitamin B-12)) 1,000 Mcg/1 Ml Vial 1, 000 Mcg QMONTH Percocet 5-325 Mg Tablet (Oxycodone/Acetaminophen) 1 Each Tablet 1-2 Tab PO Q4- 6HRS Prilosec Otc (Omeprazole Magnesium) 20 Mg Tablet.dr 20 Mg PO DAILY Vitals/I & O Vital Sign - Last 24 Hours 01/07/17 01/07/17 01/07/17 01/07/17 15:58 19:00 19:36 19:39 Temp 97.9 97.9 Pulse 80 Resp 18 B/P 152/70 Pulse Ox 98 100 100 100 O2 Delivery Nasal Cannula Nasal Cannula Nasal Cannula Nasal Cannula O2 Flow Rate 4.0 4.0 4.0 4.0 01/07/17 01/07/17 01/07/17 01/07/17 20:00 20:54 21:54 23:00 Temp 97.7 97.7 Pulse 89 Resp 20 20 18 B/P 119/78 Pulse Ox 100 97 O2 Delivery Nasal Cannula Nasal Cannula Room Air Nasal Cannula O2 Flow Rate 4.0 4.0 4.0 01/08/17 01/08/17 01/08/17 01/08/17 03:00 03:37 07:00 08:00 Temp 98.9 97.9 98.9 97.9 Pulse 80 89 Resp 18 22 B/P 136/64 134/61 Pulse Ox 99 100 96 O2 Delivery Nasal Cannula Nasal Cannula Nasal Cannula Nasal Cannula O2 Flow Rate 4.0 4.0 4.0 01/08/17 01/08/17 01/08/17 01/08/17 08:22 11:00 12:14 15:00 Temp 97.7 97.7 97.7 97.7 Pulse 85 91 Resp 20 20 B/P 127/51 104/68 Pulse Ox 96 99 99 100 O2 Delivery Nasal Cannula Room Air Nasal Cannula Nasal Cannula O2 Flow Rate 4.0 4.0 3.0 Intake and Output 01/07/17 01/07/17 01/08/17 15:00 23:00 07:00 Output Total 850 ml Balance -850 ml DAMIEN HOPSON III DO Jan 08, 2017 15:46
--- NOTE | 2017-01-08 16:31 | PDOC ---
PULMONARY PROGRESS NOTES Subjective LESS SOA Vitals Vital Signs Date Time Temp Pulse Resp B/P Pulse Ox O2 Delivery O2 Flow Rate FiO2 01/08/17 15:40 100 Nasal Cannula 4.0 01/08/17 15:00 97.7 91 20 104/68 97.7 General: Alert HEENT: Other Lungs: Clear Cardiovascular: S1, S2 Abdomen: Soft, Non-tender Neuro Exam: Alert Extremities: Other (2 EDEMA) Skin: Warm Labs Laboratory Tests Test 01/06/17 18:15 01/07/17 04:40 01/07/17 05:00 01/08/17 06:00 Potassium Level 3.9mmol/L (3.5-5.1) 3.8mmol/L (3.5-5.1) 3.7mmol/L (3.5-5.1) Prothrombin Time 16.1SEC (11.7-14.0) 18.0SEC (11.7-14.0) Prothromb Time International Ratio 1.4 (0.8-1.1) 1.6 (0.8-1.1) Heparin Anti-Xa Act, Unfractionated 0.69IU/mL (0.30-0.70) 0.98IU/mL (0.30-0.70) Sodium Level 139mmol/L (136-145) 141mmol/L (136-145) Chloride Level 104mmol/L (98-107) 105mmol/L (98-107) Carbon Dioxide Level 28mmol/L (21-32) 29mmol/L (21-32) Anion Gap 7 (6-14) 7 (6-14) Blood Urea Nitrogen 11mg/dL (7-20) 12mg/dL (7-20) Creatinine 0.9mg/dL (0.6-1.0) 1.0mg/dL (0.6-1.0) Estimated GFR (Cockcroft-Gault) 62.5 55.3 BUN/Creatinine Ratio 12 (6-20) Glucose Level 85mg/dL (70-99) 88mg/dL (70-99) Calcium Level 8.1mg/dL (8.5-10.1) 8.0mg/dL (8.5-10.1) Phosphorus Level 3.3mg/dL (2.6-4.7) 4.3mg/dL (2.6-4.7) Magnesium Level 1.8mg/dL (1.8-2.4) 1.6mg/dL (1.8-2.4) Total Bilirubin 0.8mg/dL (0.2-1.0) Aspartate Amino Transf (AST/SGOT) 52U/L (15-37) Alanine Aminotransferase (ALT/SGPT) 34U/L (14-59) Alkaline Phosphatase 140U/L (46-116) Total Protein 5.8g/dL (6.4-8.2) Albumin 3.6g/dL (3.4-5.0) 3.3g/dL (3.4-5.0) Albumin/Globulin Ratio 1.6 (1.0-1.7) White Blood Count 5.0x10^3/uL (4.0-11.0) 4.8x10^3/uL (4.0-11.0) Red Blood Count 2.20x10^6/uL (3.50-5.40) 2.16x10^6/uL (3.50-5.40) Hemoglobin 7.3g/dL (12.0-15.5) 7.1g/dL (12.0-15.5) Hematocrit 21.8% (36.0-47.0) 21.8% (36.0-47.0) Mean Corpuscular Volume 99fL (79-100) 101fL (79-100) Mean Corpuscular Hemoglobin 33pg (25-35) 33pg (25-35) Mean Corpuscular Hemoglobin Concent 33g/dL (31-37) 33g/dL (31-37) Red Cell Distribution Width 24.2% (11.5-14.5) 26.4% (11.5-14.5) Platelet Count 117x10^3/uL (140-400) 179x10^3/uL (140-400) Neutrophils (%) (Auto) 34% (31-73) 29% (31-73) Lymphocytes (%) (Auto) 14% (24-48) 13% (24-48) Monocytes (%) (Auto) 52% (0-9) 56% (0-9) Eosinophils (%) (Auto) 0% (0-3) 1% (0-3) Basophils (%) (Auto) 0% (0-3) 1% (0-3) Neutrophils # (Auto) 1.7x10^3uL (1.8-7.7) 1.4x10^3uL (1.8-7.7) Lymphocytes # (Auto) 0.7x10^3/uL (1.0-4.8) 0.3x10^3/uL (1.0-4.8) Monocytes # (Auto) 2.6x10^3/uL (0.0-1.1) 2.7x10^3/uL (0.0-1.1) Eosinophils # (Auto) 0.0x10^3/uL (0.0-0.7) 0.0x10^3/uL (0.0-0.7) Basophils # (Auto) 0.0x10^3/uL (0.0-0.2) 0.0x10^3/uL (0.0-0.2) Segmented Neutrophils % 24% (35-66) Band Neutrophils % 1% (0-9) Lymphocytes % 15% (24-48) Atypical Lymphocytes % (Manual) 1% (0-0) Monocytes % 59% (0-10) Nucleated Red Blood Cells 1 Platelet Estimate Adequate (ADEQUATE) Polychromasia Present Anisocytosis Present Macrocytosis Present Test 01/08/17 12:30 Heparin Anti-Xa Act, Unfractionated 0.84IU/mL (0.30-0.70) Laboratory Tests Test 01/08/17 06:00 01/08/17 12:30 White Blood Count 4.8x10^3/uL (4.0-11.0) Red Blood Count 2.16x10^6/uL (3.50-5.40) Hemoglobin 7.1g/dL (12.0-15.5) Hematocrit 21.8% (36.0-47.0) Mean Corpuscular Volume 101fL (79-100) Mean Corpuscular Hemoglobin 33pg (25-35) Mean Corpuscular Hemoglobin Concent 33g/dL (31-37) Red Cell Distribution Width 26.4% (11.5-14.5) Platelet Count 179x10^3/uL (140-400) Neutrophils (%) (Auto) 29% (31-73) Lymphocytes (%) (Auto) 13% (24-48) Monocytes (%) (Auto) 56% (0-9) Eosinophils (%) (Auto) 1% (0-3) Basophils (%) (Auto) 1% (0-3) Neutrophils # (Auto) 1.4x10^3uL (1.8-7.7) Lymphocytes # (Auto) 0.3x10^3/uL (1.0-4.8) Monocytes # (Auto) 2.7x10^3/uL (0.0-1.1) Eosinophils # (Auto) 0.0x10^3/uL (0.0-0.7) Basophils # (Auto) 0.0x10^3/uL (0.0-0.2) Segmented Neutrophils % 24% (35-66) Band Neutrophils % 1% (0-9) Lymphocytes % 15% (24-48) Atypical Lymphocytes % (Manual) 1% (0-0) Monocytes % 59% (0-10) Nucleated Red Blood Cells 1 Platelet Estimate Adequate (ADEQUATE) Polychromasia Present Anisocytosis Present Macrocytosis Present Prothrombin Time 18.0SEC (11.7-14.0) Prothromb Time International Ratio 1.6 (0.8-1.1) Heparin Anti-Xa Act, Unfractionated 0.98IU/mL (0.30-0.70) 0.84IU/mL (0.30-0.70) Sodium Level 141mmol/L (136-145) Potassium Level 3.7mmol/L (3.5-5.1) Chloride Level 105mmol/L (98-107) Carbon Dioxide Level 29mmol/L (21-32) Anion Gap 7 (6-14) Blood Urea Nitrogen 12mg/dL (7-20) Creatinine 1.0mg/dL (0.6-1.0) Estimated GFR (Cockcroft-Gault) 55.3 Glucose Level 88mg/dL (70-99) Calcium Level 8.0mg/dL (8.5-10.1) Phosphorus Level 4.3mg/dL (2.6-4.7) Magnesium Level 1.6mg/dL (1.8-2.4) Albumin 3.3g/dL (3.4-5.0) Medications Active Scripts Medications Dose Route/Sig Days Date Category Gabapentin 300 Mg Capsule 900 Mg PO TID 01/03/17 Reported Claritin (Loratadine) 10 Mg Tablet 1 Tab PO DAILY PRN 11/22/16 Reported Bactrim 400-80 Mg Tablet (Sulfamethoxazole/Trimethoprim) 1 Each Tablet 1 Tab PO BID 11/22/16 Reported Gabapentin 300 Mg Capsule 300 Mg PO TID 11/22/16 Reported Zestril (Lisinopril) 10 Mg Tablet 10 Mg PO DAILY 11/22/16 Reported Cyanocobalamin Injection (Cyanocobalamin (Vitamin B-12)) 1,000 Mcg/1 Ml Vial 1,000 Mcg QMONTH 05/28/16 Reported Percocet 5-325 Mg Tablet (Oxycodone/Acetaminophen) 1 Each Tablet 1-2 Tab PO Q4-6HRS 05/28/16 Reported Prilosec Otc (Omeprazole Magnesium) 20 Mg Tablet.dr 20 Mg PO DAILY 05/28/16 Reported Impression . 1. Acute respiratory failure/distress, multifactorial, secondary to acute pulmonary edema. 2. Metastatic cholangiocarcinoma, status post recent chemotherapy, last received on 12/24/2016. 3. Acute renal failure, requiring hemodialysis, currently off of dialysis. 4. Acute blood loss anemia, status post transfusion. 5. Right upper extremity deep venous thrombosis, diagnosed on 01/02/2017. Continue anticoagulation. 6. Peripheral neuropathy. 7. Abnormal x-ray compatible with pulmonary edema. 8. Multiple other comorbidities. Plan . REPEAT CXR CLINICALLY IMPROVING 1. The patient was given stat IV Lasix. We will continue Lasix for several days and monitor renal function. 2. Obtain echocardiogram to assess ejection fraction. 3. If no improvement with Lasix, this could be related to TRALI, transfusion-related acute lung injury. 4. P.r.n. nebulized treatments. 5. Continue other support with heparin. 6. Correct electrolyte abnormalities. 7. If the patient should deteriorate, we will proceed with p.r.n. BiPAP. ROULA BALLESTEROS MD Jan 08, 2017 16:31
[2017-01-08 17:07] LABS: ALBUMIN 3.4 g/dL (3.4-5.0); ALBUMIN/GLOBULIN RATIO 1.8 (1.0-1.7); GFR 55.3; POTASSIUM 3.7 mmol/L (3.5-5.1); TOTAL BILIRUBIN 0.5 mg/dL (0.2-1.0); TOTAL PROTEIN 5.3 g/dL (6.4-8.2)
[2017-01-08] MEDS: ALBUMIN HUMAN 25% 100 ML IV SCH (17:15)
[2017-01-08] MEDS: WARFARIN 4 MG TABLET. PO SCH (17:15)
--- NOTE | 2017-01-08 18:08 | PDOC2 ---
CONSULT Date of Consult Date of Consult DATE: 01/08/17 TIME: 18:05 History of Present Illness Reason for Visit: The patient is a 66 year old female who has a known history of cholangiocarcinoma. She has had prior surgical resection and has been receiving chemotherapy. She was admitted on 12/27/16 with weakness and shortness of breath. While in the hospital she was found to have a right IJ thrombus and she has been treated with heparin and is receiving coumadin. Today she noticed swelling and pain in the left abdomen and a sonogram was suggestive of a large hematoma. She denies trauma or injections to the region. Past Medical History Cardiovascular: No pertinent hx Pulmonary: No pertinent hx GI: GERD Heme/Onc: Cancer ([place]) Musculoskeletal: Other Infectious disease: No pertinent hx Renal/: No pertinent hx Past Surgical History Past Surgical History Surgery for cholangiocarcinoma Family History Family History: No Significant Social History No ALCOHOL: none Drugs: None Current Problem List Problem List Problems Medical Problems: (1) Cellulitis Status: Acute Current Medications Current Medications Current Medications Acetaminophen (Tylenol) 650 mg 1X ONCE PO Last administered on 12/27/16 09:11 ; Start 12/27/16 at 08:15; Stop 12/27/16 at 08:22; Status DC Diphenhydramine HCl (Benadryl) 25 mg 1X ONCE PO Last administered on 09:12; Start 12/27/16 at 08:15; Stop 12/27/16 at 08:22; Status DC Furosemide (Lasix) 20 mg 1X ONCE IVP ; Start 12/27/16 at 08:15; Stop 12/27/16 at 08:22; Status DC Fentanyl Citrate (Fentanyl 2ml Vial) 25 mcg PRN QID PRN IV PAIN; Start at 16:45; Stop 12/29/16 at 21:00; Status DC Lisinopril (Prinivil) 10 mg DAILY PO ; Start 12/28/16 at 09:00; Stop 12/28/16 at 09:00; Status DC Oxycodone/ Acetaminophen (Percocet 5/325) 1 tab Q4HRS PRN PO MILD/MODERATE PAIN Last administered on 01/08/17 12:43; Start 12/27/16 at 16:45 Gabapentin (Neurontin) 300 mg TID PO Last administered on 12/28/16 10:44; Start 12/27/16 at 21:00; Stop 12/28/16 at 15:23; Status DC Cetirizine HCl (Zyrtec) 10 mg PRN DAILY PRN PO ALLERGIES; Start 12/28/16 at 09: 00 Pantoprazole Sodium (Protonix) 40 mg DAILYAC PO Last administered on 01/08/17 09:27; Start 12/28/16 at 07:30 Oxycodone/ Acetaminophen 2 tab 2 tab Q4HRS PRN PO SEVERE PAIN Last administered on 01/07/17 20:54; Start 12/27/16 at 16:45 Sodium Chloride (Iv Sodium Chloride 0.9% 1000ml Bag) 1,000 ml @ 75 mls/hr [id number] IV Last administered on 12/28/16 07:12; Start 12/27/16 at 17:30; Stop 12/28/16 at 08:15; Status DC Piperacillin Sod/ Tazobactam Sod (Zosyn Per Pharmacy) 1 each PRN DAILY PRN MC SEE COMMENTS; Start 12/27/16 at 17:30; Stop 12/28/16 at 07:27; Status DC Vancomycin HCl 1 each 1 each PRN DAILY PRN MC SEE COMMENTS Last administered on 12/27/16 18:45; Start 12/27/16 at 17:30; Stop 12/27/16 at 18:51; Status DC Vancomycin HCl 2 gm/Sodium Chloride 500 ml @ 250 mls/hr 1X ONCE IV ; Start at 17:45; Stop 12/27/16 at 18:51; Status DC Piperacillin Sod/ Tazobactam Sod 3.375 gm/Sodium Chloride 50 ml @ 100 mls/hr 1X ONCE IV Last administered on 12/27/16 18:07; Start 12/27/16 at 18:00; Stop 12/27/16 at 18:29; Status DC Piperacillin Sod/ Tazobactam Sod 2.25 gm/Sodium Chloride 50 ml @ 100 mls/hr Q6HRS IV Last administered on 12/28/16 06:08; Start 12/28/16 at 00:00; Stop at 07:31; Status DC Vancomycin HCl 1.5 gm/Sodium Chloride 500 ml @ 250 mls/hr Q48H IV ; Start 12/29 at 20:00; Stop 12/29/16 at 20:00; Status DC Micafungin Sodium 100 mg/Dextrose 100 ml @ 100 mls/hr Q24H IV Last administered on 12/31/16 09:13; Start 12/28/16 at 08:00; Stop 12/31/16 at 10:43 ; Status DC Linezolid 300 ml @ 300 mls/hr Q12HR IV Last administered on 12/31/16 09:13; Start 12/28/16 at 09:00; Stop 12/31/16 at 10:43; Status DC Piperacillin Sod/ Tazobactam Sod 2.25 gm/Sodium Chloride 50 ml @ 100 mls/hr Q8HRS IV Last administered on 01/03/17 06:04; Start 12/28/16 at 14:00; Stop at 13:01; Status DC Calcium Chloride 2000 mg/Sodium Chloride 120 ml @ 240 mls/hr 1X ONCE IV Last administered on 12/28/16 08:54; Start 12/28/16 at 08:00; Stop 12/28/16 at 08:29 ; Status DC Magnesium Sulfate/ Dextrose (Magnesium Sulfate PREMIX 2GM) 50 ml @ 25 mls/hr PRN DAILY PRN IV for Mag < 1.7 on am labs Last administered on 01/04/17 09:50 ; Start 12/28/16 at 08:15; Stop 01/06/17 at 11:48; Status DC Sodium Bicarbonate 50 meq 50 meq Q2H IV Last administered on 12/28/16 15:33; Start 12/28/16 at 08:30; Stop 12/28/16 at 10:31; Status DC Sodium Chloride 500 ml @ 0 mls/hr PRN QID PRN IV UO< 30cc/hr over previous 6hrs ; Start 12/28/16 at 08:15; Stop 01/03/17 at 18:34; Status DC Sodium Bicarbonate/ Dextrose 1,150 ml @ 100 mls/hr [id number] IV Last administered on 12/30/16 06:08; Start 12/28/16 at 09:00; Stop 12/30/16 at 08:59 ; Status DC Heparin Sodium (Porcine) (Heparin Sodium) 10,000 unit STK-MED ONCE .ROUTE ; Start 12/28/16 at 08:46; Stop 12/28/16 at 08:47; Status DC Lidocaine/Sodium Bicarbonate 20 ml 20 ml STK-MED ONCE IJ ; Start 12/28/16 at 08: 47; Stop 12/28/16 at 08:48; Status DC Heparin Sodium/ Sodium Chloride 500 ml @ As Directed STK-MED ONCE .ROUTE ; Start 12/28/16 at 08:47; Stop 12/28/16 at 08:48; Status DC Lidocaine/Sodium Bicarbonate (Buffered Lidocaine 1%) 3 ml 1X ONCE IJ Last administered on 12/28/16 10:10; Start 12/28/16 at 09:00; Stop 12/28/16 at 09:01 ; Status DC Heparin Sodium/ Sodium Chloride 60 unit 1X ONCE IV Last administered on 10:11; Start 12/28/16 at 09:00; Stop 12/28/16 at 09:01; Status DC Heparin Sodium (Porcine) (Heparin Sodium) 2,500 unit 1X ONCE INT CAT Last administered on 12/28/16 10:10; Start 12/28/16 at 09:00; Stop 12/28/16 at 09:01 ; Status DC Midazolam HCl (Versed) 2 mg STK-MED ONCE .ROUTE ; Start 12/28/16 at 09:41; Stop 12/28/16 at 09:42; Status DC Saliva Substitute (Biotene Moisturizing Mouth) 2 spray PRN Q15MIN PRN PO DRY MOUTH Last administered on 12/31/16 17:53; Start 12/28/16 at 13:15 Gabapentin (Neurontin) 300 mg DAILY PO Last administered on 01/03/17 09:06; Start 12/29/16 at 09:00; Stop 01/03/17 at 18:21; Status DC Acetaminophen (Tylenol) 650 mg PRN Q6HRS PRN PO MILD PAIN Last administered on 01/08/17 03:23; Start 12/28/16 at 18:15 Ondansetron HCl (Zofran) 4 mg PRN Q6HRS PRN IV NAUSEA/VOMITING Last administered on 12/29/16 11:10; Start 12/29/16 at 10:45; Stop 12/29/16 at 13:53 ; Status DC Ondansetron HCl (Zofran) 8 mg PRN Q8HRS PRN IV NAUSEA/VOMITING Last administered on 12/31/16 03:35; Start 12/29/16 at 14:00; Stop 12/31/16 at 09:03 ; Status DC Prochlorperazine Edisylate 10 mg 10 mg 1X ONCE IV Last administered on 14:00; Start 12/29/16 at 14:00; Stop 12/29/16 at 14:01; Status DC Sodium Chloride 500 ml @ 500 mls/hr 1X ONCE IV Last administered on 23:20; Start 12/29/16 at 23:30; Stop 12/30/16 at 00:29; Status DC Sodium Chloride 500 ml @ 500 mls/hr 1X ONCE IV Last administered on 00:05; Start 12/30/16 at 00:00; Stop 12/30/16 at 00:59; Status DC Sodium Chloride 1,000 ml @ 1,000 mls/hr Q1H PRN IV hypotension; Start 12/30/16 at 08:03; Stop 12/30/16 at 14:02; Status DC Albumin Human (Albuminar) 200 ml @ 200 mls/hr 1X PRN PRN IV Hypotension Last administered on 12/30/16 09:22; Start 12/30/16 at 08:15; Stop 12/30/16 at 14:14 ; Status DC Sodium Chloride (Normal Saline Flush) 10 ml 1X PRN PRN IV AP catheter pack; Start 12/30/16 at 08:15; Stop 12/31/16 at 08:14; Status DC Sodium Chloride (Normal Saline Flush) 10 ml 1X PRN PRN IV REMOTELY PILOTED VEHICLE CONTROLLER catheter pack; Start 12/30/16 at 08:15; Stop 12/31/16 at 08:14; Status DC Info (PHARMACY MONITORING -- do not chart) 1 each PRN DAILY PRN MC SEE COMMENTS ; Start 12/30/16 at 08:15; Stop 01/08/17 at 12:44; Status DC Info (PHARMACY MONITORING -- do not chart) 1 each PRN DAILY PRN MC SEE COMMENTS ; Start 12/30/16 at 08:15; Status UNV Paricalcitol (Zemplar) 5 mcg 3X/WEEK IV Last administered on 01/03/17 09:06; Start 12/31/16 at 09:00; Stop 01/04/17 at 11:03; Status DC Calcium Acetate 1334 mg 1,334 mg TIDWMEALS PO Last administered on 01/04/17 09 :46; Start 12/30/16 at 12:00; Stop 01/04/17 at 11:03; Status DC Albumin Human (Plasmanate) 500 ml @ 120 mls/hr Q4HRS IV Last administered on 16:45; Start 12/30/16 at 12:00; Stop 12/30/16 at 19:59; Status DC Ondansetron HCl (Zofran) 8 mg PRN Q6HRS PRN IV NAUSEA/VOMITING, 2ND CHOICE Last administered on 01/03/17 08:59; Start 12/31/16 at 08:58 Lorazepam (Ativan) 0.5 mg PRN Q4HRS PRN IV ANXIETY / AGITATION Last administered on 01/08/17 12:50; Start 12/31/16 at 09:00 Prochlorperazine Edisylate (Compazine) 10 mg PRN Q6HRS PRN IM NAUSEA/VOMITING Last administered on 12/31/16 09:15; Start 12/31/16 at 09:00; Stop 01/01/17 at 11:48; Status DC Metoclopramide HCl 5 mg 5 mg PRN Q6HRS PRN IV NAUSEA/VOMITING, 1ST CHOICE Last administered on 01/01/17 09:42; Start 12/31/16 at 11:45 Magnesium Sulfate/ Dextrose 50 ml @ 25 mls/hr 1X ONCE IV Last administered on 12/31/16 17:54; Start 12/31/16 at 15:00; Stop 12/31/16 at 16:59; Status DC Albumin Human (Plasmanate) 500 ml @ 75 mls/hr Q6H40M IV Last administered on 03:44; Start 12/31/16 at 15:15; Stop 01/01/17 at 11:14; Status DC Prochlorperazine Edisylate (Compazine) 10 mg PRN Q6HRS PRN IV NAUSEA/VOMITING, 3RD CHOICE Last administered on 01/01/17 17:38; Start 01/01/17 at 11:45 Potassium Chloride (Klor-Con) 40 meq 1X ONCE PO Last administered on 13:02; Start 01/01/17 at 12:00; Stop 01/01/17 at 12:01; Status DC Furosemide (Lasix) 40 mg 1X ONCE IVP Last administered on 01/01/17 14:24; Start 01/01/17 at 14:00; Stop 01/01/17 at 14:01; Status DC Albuterol/ Ipratropium (Duoneb) 3 ml PRN Q6HRS PRN NEB SHORTNESS OF BREATH Last administered on 01/05/17 11:26; Start 01/01/17 at 13:45; Stop 01/05/17 at 22:40; Status DC Furosemide (Lasix) 40 mg 1X ONCE IVP Last administered on 01/02/17 11:43; Start 01/02/17 at 10:45; Stop 01/02/17 at 10:46; Status DC Potassium Chloride 40 meq 40 meq 1X ONCE PO Last administered on 01/02/17 13: 21; Start 01/02/17 at 13:15; Stop 01/02/17 at 13:16; Status DC Heparin Sodium/ Dextrose 500 ml @ 0 mls/hr CONT PRN IV SEE I/O RECORD Last administered on 01/08/17 13:35; Start 01/02/17 at 14:45; Stop 01/08/17 at 15:48 ; Status DC Heparin Sodium (Porcine) (Heparin Sodium) 3,150 unit PRN Q6HRS PRN IV FOR UFH LEVEL LESS THAN 0.2; Start 01/02/17 at 14:45; Stop 01/08/17 at 15:48; Status DC Heparin Sodium (Porcine) (Heparin Sodium) 1,550 unit PRN Q6HRS PRN IV FOR UFH LEVEL 0.2 - 0.29; Start 01/02/17 at 14:45; Stop 01/08/17 at 15:48; Status DC Warfarin Sodium (Coumadin Per Pharmacy) 1 each PRN DAILY PRN MC PER PROTOCOL Last administered on 01/03/17 11:34; Start 01/02/17 at 14:45; Stop 01/03/17 at 23:01; Status DC Warfarin Sodium (Coumadin) 5 mg 1X WARF ONCE PO Last administered on 17:41; Start 01/02/17 at 16:00; Stop 01/02/17 at 16:01; Status DC Warfarin Sodium (Coumadin - No Dose Today) 1 each 1X WARF ONCE MC ; Start 01/03 at 16:00; Stop 01/03/17 at 23:01; Status DC Cefpodoxime Proxetil (Vantin) 200 mg BID PO Last administered on 01/05/17 08: 53; Start 01/03/17 at 21:00; Stop 01/05/17 at 09:37; Status DC Cyanocobalamin (Vitamin B-12) 1,000 mcg QMONTH IM Last administered on 09:49; Start 01/04/17 at 09:00 Gabapentin 900 mg 900 mg TID PO Last administered on 01/08/17 09:28; Start at 21:00 Sodium Chloride (Iv Sodium Chloride 0.9% 1000ml Bag) 1,000 ml @ 75 mls/hr [id number] IV Last administered on 01/04/17 09:46; Start 01/03/17 at 18:45; Stop 01/04/17 at 11:04; Status DC Potassium Chloride 20 meq 20 meq 1X ONCE PO Last administered on 01/03/17 18: 56; Start 01/03/17 at 18:45; Stop 01/03/17 at 18:46; Status DC Magnesium Sulfate/ Dextrose 50 ml @ 25 mls/hr PRN DAILY PRN IV for Mag < 1.7 on am labs; Start 01/04/17 at 10:45; Status UNV Potassium Chloride 50 ml @ 50 mls/hr PRN Q6HRS PRN IV For K < 3.7 Last administered on 01/05/17 13:10; Start 01/04/17 at 10:45 Potassium Chloride 50 ml @ 50 mls/hr PRN Q2HR PRN IV total of 40mEq for K < 3.5 Last administered on 01/04/17 13:46; Start 01/04/17 at 10:45 Albumin Human (Albuminar) 100 ml @ 100 mls/hr TID IV Last administered on 01/06 08:53; Start 01/04/17 at 14:00; Stop 01/06/17 at 09:59; Status DC Warfarin Sodium (Coumadin) 4 mg DAILY16 PO Last administered on 01/08/17 17:15 ; Start 01/04/17 at 17:00 Warfarin Sodium 1 each 1 each PRN DAILY PRN MC SEE COMMENTS Last administered on 01/08/17 12:40; Start 01/04/17 at 17:00 Magnesium Sulfate/ Dextrose 100 ml @ 100 mls/hr 1X ONCE IV Last administered on 01/05/17 11:35; Start 01/05/17 at 11:00; Stop 01/05/17 at 11:59; Status DC Magnesium Sulfate/ Dextrose 50 ml @ 25 mls/hr PRN DAILY PRN IV for Mag < 1.7 on am labs Last administered on 01/08/17 09:27; Start 01/05/17 at 11:00 Potassium Chloride (KCl Premix 20meq) 50 ml @ 25 mls/hr Q2HR IV Last administered on 01/05/17 23:42; Start 01/05/17 at 16:00; Stop 01/05/17 at 19:59 ; Status DC Iohexol (Omnipaque 300 Mg/ml) 60 ml 1X ONCE IV ; Start 01/05/17 at 16:15; Stop 01/05/17 at 16:16; Status DC Iohexol (Omnipaque 240 Mg/ml) 30 ml 1X ONCE PO Last administered on 01/05/17 15:45; Start 01/05/17 at 16:15; Stop 01/05/17 at 16:16; Status DC Info (Do NOT chart on this entry -- for MONITORING) 1 each PRN DAILY PRN MC SEE COMMENTS; Start 01/05/17 at 16:15; Stop 01/07/17 at 16:14; Status DC Albuterol/ Ipratropium (Duoneb) 3 ml RTQID NEB Last administered on 01/08/17 15:39; Start 01/05/17 at 20:00 Budesonide (Pulmicort) 0.5 mg RTBID NEB Last administered on 01/08/17 08:20; Start 01/05/17 at 20:00 Furosemide (Lasix) 20 mg 1X ONCE IVP Last administered on 01/05/17 22:04; Start 01/05/17 at 22:00; Stop 01/05/17 at 22:01; Status DC Albuterol Sulfate (Ventolin Neb Soln) 2.5 mg PRN Q6HRS PRN NEB SHORTNESS OF BREATH Last administered on 01/08/17 03:37; Start 01/05/17 at 22:40 Furosemide (Lasix) 40 mg 1X ONCE IVP Last administered on 01/07/17 11:50; Start 01/07/17 at 11:30; Stop 01/07/17 at 11:31; Status DC Furosemide 40 mg 40 mg DAILY IVP Last administered on 01/08/17 09:27; Start at 09:00 Albumin Human (Albuminar) 100 ml @ 100 mls/hr DAILY IV Last administered on 17:15; Start 01/08/17 at 17:00; Stop 01/10/17 at 16:59 Active Scripts Active Reported Gabapentin 300 Mg Capsule 900 Mg PO TID Claritin (Loratadine) 10 Mg Tablet 1 Tab PO DAILY PRN Bactrim 400-80 Mg Tablet (Sulfamethoxazole/Trimethoprim) 1 Each Tablet 1 Tab PO BID Gabapentin 300 Mg Capsule 300 Mg PO TID Zestril (Lisinopril) 10 Mg Tablet 10 Mg PO DAILY Cyanocobalamin Injection (Cyanocobalamin (Vitamin B-12)) 1,000 Mcg/1 Ml Vial 1, 000 Mcg QMONTH Percocet 5-325 Mg Tablet (Oxycodone/Acetaminophen) 1 Each Tablet 1-2 Tab PO Q4- 6HRS Prilosec Otc (Omeprazole Magnesium) 20 Mg Tablet.dr 20 Mg PO DAILY Allergies Allergies: Coded Allergies: No Known Drug Allergies (Unverified , 12/27/16) ROS General: YES: Fatigue PSYCHOLOGICAL ROS: No: Anxiety, Behavioral Disorder, Concentration difficultie , Decreased libido, Depression, Disorientation, Hallucinations, Hostility, Irritablity, Memory difficulties, Mood Swings, Obsessive thoughts, Other, Physical abuse, Sexual abuse, Sleep disturbances, Suicidal ideation Eyes: No Blurry vision, No Decreased vision, No Double vision, No Dry eyes, No Excessive tearing, No Eye Pain, No Itchy Eyes, No Loss of vision, No Other, No Photophobia, No Scotomata, No Uses contacts, No Uses glasses HEENT: No: Epistaxis, Heacaches, Hearing change, Nasal congestion, Nasal discharge, Oral lesions, Other, Sinus pain, Sneezing, Snoring, Sore Throat, Tinnitus, Vertigo, Visual Changes, Vocal changes ALLERGY AND IMMUNOLOGY: No: Hives, Insect Bite Sensitivity, Itchy/Watery Eyes, Nasal Congestion, Other, Post Nasal Drip, Seasonal Allergies ENDOCRINE: No: Breast Changes, Galactorrhea, Hair Pattern Changes, Hot Flashes , Malaise/lethargy, Mood Swings, Other, Palpitations, Polydipsia/polyuria, Skin Changes, Temperature Intolerance, Unexpected Weight Changes Respiratory: YES: Shortness of breath Cardiovascular: No Chest Pain, No Edema, No Lt Headedness, No Orthopnea, No Other, No Palpitations, No Paroxysmal Noc. Dyspnea Gastrointestinal: Yes Abdominal Pain Genitourinary: No , No , No , No , No , No , No , No Discharge, No Dysuria, No Flank Pain, No Frequency, No Hematuria, No Incontinence, No Other, No Pain, No Retention, No Urgency Musculoskeletal: No Gait Disturbance, No Joint Pain, No Joint Stiffness, No Joint Swelling, No Muscle Pain, No Muscular Weakness, No Other, No Pain In:, No Swelling In: Neurological: No Behavorial Changes, No Bowel/Bladder ControlChng, No Confusion , No Dizziness, No Gait Disturbance, No Headaches, No Impaired Coord/balance, No Memory Loss, No Numbness/Tingling, No Other, No Seizures, No Speech Problems , No Tremors, No Visual Changes, No Weakness Skin: No Acne, No Dry Skin, No Eczema, No Hair Changes, No Lumps, No Mole Changes, No Mottling, No Nail Changes, No Other, No Pruritus, No Rash, No Skin Lesion Changes Physical Exam General: Alert, Oriented X3 HEENT: Atraumatic Lungs: Other (few coarse bs) Abdomen: Soft (obese, tender in left abdomen with palpable fullness, no ecchymosis, abdominal scars present from prior surgery) Extremities: Other (bilat ankle edema) Skin: No rashes Psych/Mental Status: Mental status NL MUSCULOSKELETAL: No deformity Vitals VITALS Vital Signs Date Time Temp Pulse Resp B/P Pulse Ox O2 Delivery O2 Flow Rate FiO2 01/08/17 15:40 100 Nasal Cannula 4.0 01/08/17 15:00 97.7 91 20 104/68 97.7 Labs Labs Laboratory Tests Test 01/06/17 18:15 01/07/17 04:40 01/07/17 05:00 01/08/17 06:00 Potassium Level 3.9mmol/L (3.5-5.1) 3.8mmol/L (3.5-5.1) 3.7mmol/L (3.5-5.1) Prothrombin Time 16.1SEC (11.7-14.0) 18.0SEC (11.7-14.0) Prothromb Time International Ratio 1.4 (0.8-1.1) 1.6 (0.8-1.1) Heparin Anti-Xa Act, Unfractionated 0.69IU/mL (0.30-0.70) 0.98IU/mL (0.30-0.70) Sodium Level 139mmol/L (136-145) 138mmol/L (136-145) Chloride Level 104mmol/L (98-107) 103mmol/L (98-107) Carbon Dioxide Level 28mmol/L (21-32) 26mmol/L (21-32) Anion Gap 7 (6-14) 9 (6-14) Blood Urea Nitrogen 11mg/dL (7-20) 12mg/dL (7-20) Creatinine 0.9mg/dL (0.6-1.0) 1.0mg/dL (0.6-1.0) Estimated GFR (Cockcroft-Gault) 62.5 55.3 BUN/Creatinine Ratio 12 (6-20) 12 (6-20) Glucose Level 85mg/dL (70-99) 86mg/dL (70-99) Calcium Level 8.1mg/dL (8.5-10.1) 8.0mg/dL (8.5-10.1) Phosphorus Level 3.3mg/dL (2.6-4.7) 4.3mg/dL (2.6-4.7) Magnesium Level 1.8mg/dL (1.8-2.4) 1.6mg/dL (1.8-2.4) Total Bilirubin 0.8mg/dL (0.2-1.0) 0.5mg/dL (0.2-1.0) Aspartate Amino Transf (AST/SGOT) 52U/L (15-37) 45U/L (15-37) Alanine Aminotransferase (ALT/SGPT) 34U/L (14-59) 32U/L (14-59) Alkaline Phosphatase 140U/L (46-116) 134U/L (46-116) Total Protein 5.8g/dL (6.4-8.2) 5.3g/dL (6.4-8.2) Albumin 3.6g/dL (3.4-5.0) 3.4g/dL (3.4-5.0) Albumin/Globulin Ratio 1.6 (1.0-1.7) 1.8 (1.0-1.7) White Blood Count 5.0x10^3/uL (4.0-11.0) 4.8x10^3/uL (4.0-11.0) Red Blood Count 2.20x10^6/uL (3.50-5.40) 2.16x10^6/uL (3.50-5.40) Hemoglobin 7.3g/dL (12.0-15.5) 7.1g/dL (12.0-15.5) Hematocrit 21.8% (36.0-47.0) 21.8% (36.0-47.0) Mean Corpuscular Volume 99fL (79-100) 101fL (79-100) Mean Corpuscular Hemoglobin 33pg (25-35) 33pg (25-35) Mean Corpuscular Hemoglobin Concent 33g/dL (31-37) 33g/dL (31-37) Red Cell Distribution Width 24.2% (11.5-14.5) 26.4% (11.5-14.5) Platelet Count 117x10^3/uL (140-400) 179x10^3/uL (140-400) Neutrophils (%) (Auto) 34% (31-73) 29% (31-73) Lymphocytes (%) (Auto) 14% (24-48) 13% (24-48) Monocytes (%) (Auto) 52% (0-9) 56% (0-9) Eosinophils (%) (Auto) 0% (0-3) 1% (0-3) Basophils (%) (Auto) 0% (0-3) 1% (0-3) Neutrophils # (Auto) 1.7x10^3uL (1.8-7.7) 1.4x10^3uL (1.8-7.7) Lymphocytes # (Auto) 0.7x10^3/uL (1.0-4.8) 0.3x10^3/uL (1.0-4.8) Monocytes # (Auto) 2.6x10^3/uL (0.0-1.1) 2.7x10^3/uL (0.0-1.1) Eosinophils # (Auto) 0.0x10^3/uL (0.0-0.7) 0.0x10^3/uL (0.0-0.7) Basophils # (Auto) 0.0x10^3/uL (0.0-0.2) 0.0x10^3/uL (0.0-0.2) Segmented Neutrophils % 24% (35-66) Band Neutrophils % 1% (0-9) Lymphocytes % 15% (24-48) Atypical Lymphocytes % (Manual) 1% (0-0) Monocytes % 59% (0-10) Nucleated Red Blood Cells 1 Platelet Estimate Adequate (ADEQUATE) Polychromasia Present Anisocytosis Present Macrocytosis Present Test 01/08/17 12:30 Heparin Anti-Xa Act, Unfractionated 0.84IU/mL (0.30-0.70) Laboratory Tests Test 01/08/17 06:00 01/08/17 12:30 White Blood Count 4.8x10^3/uL (4.0-11.0) Red Blood Count 2.16x10^6/uL (3.50-5.40) Hemoglobin 7.1g/dL (12.0-15.5) Hematocrit 21.8% (36.0-47.0) Mean Corpuscular Volume 101fL (79-100) Mean Corpuscular Hemoglobin 33pg (25-35) Mean Corpuscular Hemoglobin Concent 33g/dL (31-37) Red Cell Distribution Width 26.4% (11.5-14.5) Platelet Count 179x10^3/uL (140-400) Neutrophils (%) (Auto) 29% (31-73) Lymphocytes (%) (Auto) 13% (24-48) Monocytes (%) (Auto) 56% (0-9) Eosinophils (%) (Auto) 1% (0-3) Basophils (%) (Auto) 1% (0-3) Neutrophils # (Auto) 1.4x10^3uL (1.8-7.7) Lymphocytes # (Auto) 0.3x10^3/uL (1.0-4.8) Monocytes # (Auto) 2.7x10^3/uL (0.0-1.1) Eosinophils # (Auto) 0.0x10^3/uL (0.0-0.7) Basophils # (Auto) 0.0x10^3/uL (0.0-0.2) Segmented Neutrophils % 24% (35-66) Band Neutrophils % 1% (0-9) Lymphocytes % 15% (24-48) Atypical Lymphocytes % (Manual) 1% (0-0) Monocytes % 59% (0-10) Nucleated Red Blood Cells 1 Platelet Estimate Adequate (ADEQUATE) Polychromasia Present Anisocytosis Present Macrocytosis Present Prothrombin Time 18.0SEC (11.7-14.0) Prothromb Time International Ratio 1.6 (0.8-1.1) Heparin Anti-Xa Act, Unfractionated 0.98IU/mL (0.30-0.70) 0.84IU/mL (0.30-0.70) Sodium Level 138mmol/L (136-145) Potassium Level 3.7mmol/L (3.5-5.1) Chloride Level 103mmol/L (98-107) Carbon Dioxide Level 26mmol/L (21-32) Anion Gap 9 (6-14) Blood Urea Nitrogen 12mg/dL (7-20) Creatinine 1.0mg/dL (0.6-1.0) Estimated GFR (Cockcroft-Gault) 55.3 BUN/Creatinine Ratio 12 (6-20) Glucose Level 86mg/dL (70-99) Calcium Level 8.0mg/dL (8.5-10.1) Phosphorus Level 4.3mg/dL (2.6-4.7) Magnesium Level 1.6mg/dL (1.8-2.4) Total Bilirubin 0.5mg/dL (0.2-1.0) Aspartate Amino Transf (AST/SGOT) 45U/L (15-37) Alanine Aminotransferase (ALT/SGPT) 32U/L (14-59) Alkaline Phosphatase 134U/L (46-116) Total Protein 5.3g/dL (6.4-8.2) Albumin 3.4g/dL (3.4-5.0) Albumin/Globulin Ratio 1.8 (1.0-1.7) Images Images Abdominal ultrasound: IMPRESSION: 17.7 cm hypoechoic avascular mass of the left upper quadrant corresponding to the palpable lump. This is consistent with a hematoma. Recommend continued clinical follow-up with regard to decrease in size of this mass Assessment/Plan Assessment/Plan Cholangiocarcinoma, receiving chemotherapy, recent R IJ thrombus, on anticoagulation; L abdominal pain and fullness with hematoma suggested by sonogram; hematoma most likely due to anticoagulation in the absence of trauma ; difficult problem in the presence of recent IJ thrombus; ideally would recommend trying to hold or minimize coagulopathy to prevent worsening hematoma. Defer to heme/onc regarding tx for coagulopathy, follow H and H, clinical exam. PEREZ GROSS MD Jan 08, 2017 18:08
[2017-01-08] MEDS ORDERED: traMADol 50 MG TABLET PO PRN (22:15)
[2017-01-09] VITALS (22 sets, daily range): BP systolic 76–148; BP diastolic 52–99
[2017-01-09] MEDS: oxyCODONE/APAP 5/325 1 TAB TABLET PO PRN ×2 (01:27→22:54)
[2017-01-09] MEDS: PANTOPRAZOLE 40 MG TABLET.DR. PO SCH (06:31)
[2017-01-09 06:45] LABS: BASO % 0 % (0-3); EOS % 0 % (0-3); LYMPH # 0.4 x10^3/uL (1.0-4.8); LYMPH % 7 % (24-48); MEAN CORPUSCULAR HEMOGLOBIN 32 pg (25-35); MEAN CORPUSCULAR HGB CONC 34 g/dL (31-37); MEAN CORPUSCULAR VOLUME 96 fL (79-100); MONO % 64 % (0-9); NEUT % 30 % (31-73); PLATELET COUNT 287 x10^3/uL (140-400); RED BLOOD COUNT 1.97 x10^6/uL (3.50-5.40); RED CELL DISTRIBUTION WIDTH 17.2 % (11.5-14.5)
[2017-01-09 06:57] LABS: CALCIUM 7.6 mg/dL (8.5-10.1); CREATININE 1.6 mg/dL (0.6-1.0); GFR 32.2; POTASSIUM 4.5 mmol/L (3.5-5.1)
[2017-01-09 06:58] LABS: INR 1.9 (0.8-1.1); PROTHROMBIN TIME PATIENT 20.5 SEC (11.7-14.0)
[2017-01-09 07:21] LABS: HEMOGLOBIN 6.3 g/dL (12.0-15.5)
[2017-01-09] MEDS: IPRATRPIUM/ALBUTEROL 0.5/2.5MG 3 ML NEBU. NEB SCH ×4 (07:49→19:38)
[2017-01-09] MEDS: BUDESONIDE 0.5 MG/2 ML NEBU. NEB SCH ×2 (07:49→19:38)
[2017-01-09] MEDS: GABAPENTIN 300 MG CAPSULE. PO SCH ×3 (09:00→21:22)
--- NOTE | 2017-01-09 09:24 | RAD ---
Portable AP upright chest x-ray performed at 0743 Indications: Follow-up of CHF. Comparison: January 07, 2017. Findings: Bilateral pleural effusions and bibasilar lung infiltrates and perihilar pulmonary edema have significantly improved. Persistent left lung base consolidation and small bilateral pleural effusions are still evident however. No pneumothorax is seen. Heart size is enlarged but stable. The mediastinum is unchanged. Right IJ central line is unchanged in position. IMPRESSION: Improving CHF.
[2017-01-09] MEDS: FUROSEMIDE 40 MG/4 ML VIAL. IVP SCH (10:18)
[2017-01-09] MEDS: ALBUMIN HUMAN 25% 100 ML IV SCH (10:25)
--- NOTE | 2017-01-09 12:03 | PDOC ---
SANJU DELAROSA [employer] 01/09/17 1202: SURGICAL PROGRESS NOTE Subjective seen in icu, transferred for closer observation, signifcant pain to LLQ/ hematoma area last night none no pain there, more complaints of leg pain received blood last night family present Vital Signs Vital Signs Date Time Temp Pulse Resp B/P Pulse Ox O2 Delivery O2 Flow Rate FiO2 01/09/17 11:00 97 12 81/71 98 Nasal Cannula 4.0 01/09/17 07:00 97.7 97.7 I&O Intake and Output 01/09/17 07:00 Intake Total 1220 ml Output Total 825 ml Balance 395 ml Intake Oral 500 ml IV Total 100 ml Blood Product IV Normal Saline Flush 620 ml Output Urine Total 825 ml # Bowel Movements 3 General: Cooperative, Other (some confusions) Abdomen: Soft, Other (firmness to left abdomen, nontender this am, no ecchymosis) Labs Laboratory Tests Test 01/08/17 06:00 01/08/17 12:30 01/09/17 06:15 01/09/17 09:15 White Blood Count 4.8x10^3/uL (4.0-11.0) 6.0x10^3/uL (4.0-11.0) Red Blood Count 2.16x10^6/uL (3.50-5.40) 1.97x10^6/uL (3.50-5.40) Hemoglobin 7.1g/dL (12.0-15.5) 6.3g/dL (12.0-15.5) Hematocrit 21.8% (36.0-47.0) 19.0% (36.0-47.0) Mean Corpuscular Volume 101fL (79-100) 96fL (79-100) Mean Corpuscular Hemoglobin 33pg (25-35) 32pg (25-35) Mean Corpuscular Hemoglobin Concent 33g/dL (31-37) 34g/dL (31-37) Red Cell Distribution Width 26.4% (11.5-14.5) 17.2% (11.5-14.5) Platelet Count 179x10^3/uL (140-400) 287x10^3/uL (140-400) Neutrophils (%) (Auto) 29% (31-73) 30% (31-73) Lymphocytes (%) (Auto) 13% (24-48) 7% (24-48) Monocytes (%) (Auto) 56% (0-9) 64% (0-9) Eosinophils (%) (Auto) 1% (0-3) 0% (0-3) Basophils (%) (Auto) 1% (0-3) 0% (0-3) Neutrophils # (Auto) 1.4x10^3uL (1.8-7.7) 1.8x10^3uL (1.8-7.7) Lymphocytes # (Auto) 0.3x10^3/uL (1.0-4.8) 0.4x10^3/uL (1.0-4.8) Monocytes # (Auto) 2.7x10^3/uL (0.0-1.1) 3.9x10^3/uL (0.0-1.1) Eosinophils # (Auto) 0.0x10^3/uL (0.0-0.7) 0.0x10^3/uL (0.0-0.7) Basophils # (Auto) 0.0x10^3/uL (0.0-0.2) 0.0x10^3/uL (0.0-0.2) Segmented Neutrophils % 24% (35-66) Band Neutrophils % 1% (0-9) Lymphocytes % 15% (24-48) Atypical Lymphocytes % (Manual) 1% (0-0) Monocytes % 59% (0-10) Nucleated Red Blood Cells 1 Platelet Estimate Adequate (ADEQUATE) Polychromasia Present Anisocytosis Present Macrocytosis Present Prothrombin Time 18.0SEC (11.7-14.0) 20.5SEC (11.7-14.0) Prothromb Time International Ratio 1.6 (0.8-1.1) 1.9 (0.8-1.1) Heparin Anti-Xa Act, Unfractionated 0.98IU/mL (0.30-0.70) 0.84IU/mL (0.30-0.70) < 0.10IU/mL (0.30-0.70) Sodium Level 138mmol/L (136-145) 138mmol/L (136-145) Potassium Level 3.7mmol/L (3.5-5.1) 4.5mmol/L (3.5-5.1) Chloride Level 103mmol/L (98-107) 104mmol/L (98-107) Carbon Dioxide Level 26mmol/L (21-32) 25mmol/L (21-32) Anion Gap 9 (6-14) 9 (6-14) Blood Urea Nitrogen 12mg/dL (7-20) 17mg/dL (7-20) Creatinine 1.0mg/dL (0.6-1.0) 1.6mg/dL (0.6-1.0) Estimated GFR (Cockcroft-Gault) 55.3 32.2 BUN/Creatinine Ratio 12 (6-20) Glucose Level 86mg/dL (70-99) 136mg/dL (70-99) Calcium Level 8.0mg/dL (8.5-10.1) 7.6mg/dL (8.5-10.1) Phosphorus Level 4.3mg/dL (2.6-4.7) Magnesium Level 1.6mg/dL (1.8-2.4) 2.0mg/dL (1.8-2.4) Total Bilirubin 0.5mg/dL (0.2-1.0) Aspartate Amino Transf (AST/SGOT) 45U/L (15-37) Alanine Aminotransferase (ALT/SGPT) 32U/L (14-59) Alkaline Phosphatase 134U/L (46-116) Total Protein 5.3g/dL (6.4-8.2) Albumin 3.4g/dL (3.4-5.0) Albumin/Globulin Ratio 1.8 (1.0-1.7) Laboratory Tests Test 01/08/17 12:30 01/09/17 06:15 01/09/17 09:15 Heparin Anti-Xa Act, Unfractionated 0.84IU/mL (0.30-0.70) < 0.10IU/mL (0.30-0.70) White Blood Count 6.0x10^3/uL (4.0-11.0) Red Blood Count 1.97x10^6/uL (3.50-5.40) Hemoglobin 6.3g/dL (12.0-15.5) Hematocrit 19.0% (36.0-47.0) Mean Corpuscular Volume 96fL (79-100) Mean Corpuscular Hemoglobin 32pg (25-35) Mean Corpuscular Hemoglobin Concent 34g/dL (31-37) Red Cell Distribution Width 17.2% (11.5-14.5) Platelet Count 287x10^3/uL (140-400) Neutrophils (%) (Auto) 30% (31-73) Lymphocytes (%) (Auto) 7% (24-48) Monocytes (%) (Auto) 64% (0-9) Eosinophils (%) (Auto) 0% (0-3) Basophils (%) (Auto) 0% (0-3) Neutrophils # (Auto) 1.8x10^3uL (1.8-7.7) Lymphocytes # (Auto) 0.4x10^3/uL (1.0-4.8) Monocytes # (Auto) 3.9x10^3/uL (0.0-1.1) Eosinophils # (Auto) 0.0x10^3/uL (0.0-0.7) Basophils # (Auto) 0.0x10^3/uL (0.0-0.2) Prothrombin Time 20.5SEC (11.7-14.0) Prothromb Time International Ratio 1.9 (0.8-1.1) Sodium Level 138mmol/L (136-145) Potassium Level 4.5mmol/L (3.5-5.1) Chloride Level 104mmol/L (98-107) Carbon Dioxide Level 25mmol/L (21-32) Anion Gap 9 (6-14) Blood Urea Nitrogen 17mg/dL (7-20) Creatinine 1.6mg/dL (0.6-1.0) Estimated GFR (Cockcroft-Gault) 32.2 Glucose Level 136mg/dL (70-99) Calcium Level 7.6mg/dL (8.5-10.1) Magnesium Level 2.0mg/dL (1.8-2.4) Problem List Problems Medical Problems: (1) Cellulitis Status: Acute Assessment/Plan hematoma, anticoagulated due to R IJ thrombus cholangiocarcinoma anemia, hg 6.3, noted it has been between 6.8- low 7's for several days calcium low 7.6 INR 1.9 they had several questions including surgery to drain blood, more blood, stopping blood thinners--explained to family--no surgery indicated, hematomas will resolve with time once coagulation corrected, however difficult case due to her thrombus, may not be able to stop all of her anticoagulants(I explained that is deferred to Dr Connell and Dr Escobar), hgb relatively stable for several days, may take some time to see an increase(however no significant drop noted)-- transfusions as deemed necessary by IPC/heme, could consider ct angio if there is evidence of ongoing bleeding would rec correcting calcium also Problems: PEREZ GROSS MD 01/09/172003: SURGICAL PROGRESS NOTE Assessment/Plan Above reviewed, suspect abd wall bleed due to anticoagulation; generally treated by normalizing coagulation status, rarely able to find and stop bleeding surgically; best to correct coags, and hematoma will usually resorb; will check CT scan to better assess; I am defering coagulation to medicine and Heme/onc, but could reverse more rapidly with vit K or FFP. Problems: SANJU DELAROSA [employer] Jan 09, 2017 12:02 PEREZ GROSS MD Jan 09, 2017 20:04
--- NOTE | 2017-01-09 13:41 | PDOC ---
Provider Note Provider Note Vascular Consult dictated Imp: Rt internal Jugular thrombus probably related to the rogelio cath in the rt chest U/S: no clot in legs or rt arm veins Intra abd. bleed Off heparin but PT 20/INR 1.9 Plan: DC coumadin Risk of embolization from the Rt. IJV clot is minimal, even if a little embolized it would not cause a life threatening problem, continued hemorrhage could be a life threatening problem MARIA ELENA HAYWOOD MD Jan 09, 2017 13:40
--- NOTE | 2017-01-09 14:07 | PDOC ---
PULMONARY PROGRESS NOTES Subjective LESS SOA lots of pain related to hematoma Vitals Vital Signs Date Time Temp Pulse Resp B/P Pulse Ox O2 Delivery O2 Flow Rate FiO2 01/09/17 13:03 100 Nasal Cannula 3.0 01/09/17 11:00 97 12 81/71 01/09/17 07:00 97.7 97.7 General: Alert HEENT: Other Lungs: Clear Cardiovascular: S1, S2 Abdomen: Soft, Non-tender, Other (he) Neuro Exam: Alert Extremities: Other (2 EDEMA) Skin: Warm Labs Laboratory Tests Test 01/08/17 06:00 01/08/17 12:30 01/09/17 06:15 01/09/17 09:15 White Blood Count 4.8x10^3/uL (4.0-11.0) 6.0x10^3/uL (4.0-11.0) Red Blood Count 2.16x10^6/uL (3.50-5.40) 1.97x10^6/uL (3.50-5.40) Hemoglobin 7.1g/dL (12.0-15.5) 6.3g/dL (12.0-15.5) Hematocrit 21.8% (36.0-47.0) 19.0% (36.0-47.0) Mean Corpuscular Volume 101fL (79-100) 96fL (79-100) Mean Corpuscular Hemoglobin 33pg (25-35) 32pg (25-35) Mean Corpuscular Hemoglobin Concent 33g/dL (31-37) 34g/dL (31-37) Red Cell Distribution Width 26.4% (11.5-14.5) 17.2% (11.5-14.5) Platelet Count 179x10^3/uL (140-400) 287x10^3/uL (140-400) Neutrophils (%) (Auto) 29% (31-73) 30% (31-73) Lymphocytes (%) (Auto) 13% (24-48) 7% (24-48) Monocytes (%) (Auto) 56% (0-9) 64% (0-9) Eosinophils (%) (Auto) 1% (0-3) 0% (0-3) Basophils (%) (Auto) 1% (0-3) 0% (0-3) Neutrophils # (Auto) 1.4x10^3uL (1.8-7.7) 1.8x10^3uL (1.8-7.7) Lymphocytes # (Auto) 0.3x10^3/uL (1.0-4.8) 0.4x10^3/uL (1.0-4.8) Monocytes # (Auto) 2.7x10^3/uL (0.0-1.1) 3.9x10^3/uL (0.0-1.1) Eosinophils # (Auto) 0.0x10^3/uL (0.0-0.7) 0.0x10^3/uL (0.0-0.7) Basophils # (Auto) 0.0x10^3/uL (0.0-0.2) 0.0x10^3/uL (0.0-0.2) Segmented Neutrophils % 24% (35-66) Band Neutrophils % 1% (0-9) Lymphocytes % 15% (24-48) Atypical Lymphocytes % (Manual) 1% (0-0) Monocytes % 59% (0-10) Nucleated Red Blood Cells 1 Platelet Estimate Adequate (ADEQUATE) Polychromasia Present Anisocytosis Present Macrocytosis Present Prothrombin Time 18.0SEC (11.7-14.0) 20.5SEC (11.7-14.0) Prothromb Time International Ratio 1.6 (0.8-1.1) 1.9 (0.8-1.1) Heparin Anti-Xa Act, Unfractionated 0.98IU/mL (0.30-0.70) 0.84IU/mL (0.30-0.70) < 0.10IU/mL (0.30-0.70) Sodium Level 138mmol/L (136-145) 138mmol/L (136-145) Potassium Level 3.7mmol/L (3.5-5.1) 4.5mmol/L (3.5-5.1) Chloride Level 103mmol/L (98-107) 104mmol/L (98-107) Carbon Dioxide Level 26mmol/L (21-32) 25mmol/L (21-32) Anion Gap 9 (6-14) 9 (6-14) Blood Urea Nitrogen 12mg/dL (7-20) 17mg/dL (7-20) Creatinine 1.0mg/dL (0.6-1.0) 1.6mg/dL (0.6-1.0) Estimated GFR (Cockcroft-Gault) 55.3 32.2 BUN/Creatinine Ratio 12 (6-20) Glucose Level 86mg/dL (70-99) 136mg/dL (70-99) Calcium Level 8.0mg/dL (8.5-10.1) 7.6mg/dL (8.5-10.1) Phosphorus Level 4.3mg/dL (2.6-4.7) Magnesium Level 1.6mg/dL (1.8-2.4) 2.0mg/dL (1.8-2.4) Total Bilirubin 0.5mg/dL (0.2-1.0) Aspartate Amino Transf (AST/SGOT) 45U/L (15-37) Alanine Aminotransferase (ALT/SGPT) 32U/L (14-59) Alkaline Phosphatase 134U/L (46-116) Total Protein 5.3g/dL (6.4-8.2) Albumin 3.4g/dL (3.4-5.0) Albumin/Globulin Ratio 1.8 (1.0-1.7) Laboratory Tests Test 01/09/17 06:15 01/09/17 09:15 White Blood Count 6.0x10^3/uL (4.0-11.0) Red Blood Count 1.97x10^6/uL (3.50-5.40) Hemoglobin 6.3g/dL (12.0-15.5) Hematocrit 19.0% (36.0-47.0) Mean Corpuscular Volume 96fL (79-100) Mean Corpuscular Hemoglobin 32pg (25-35) Mean Corpuscular Hemoglobin Concent 34g/dL (31-37) Red Cell Distribution Width 17.2% (11.5-14.5) Platelet Count 287x10^3/uL (140-400) Neutrophils (%) (Auto) 30% (31-73) Lymphocytes (%) (Auto) 7% (24-48) Monocytes (%) (Auto) 64% (0-9) Eosinophils (%) (Auto) 0% (0-3) Basophils (%) (Auto) 0% (0-3) Neutrophils # (Auto) 1.8x10^3uL (1.8-7.7) Lymphocytes # (Auto) 0.4x10^3/uL (1.0-4.8) Monocytes # (Auto) 3.9x10^3/uL (0.0-1.1) Eosinophils # (Auto) 0.0x10^3/uL (0.0-0.7) Basophils # (Auto) 0.0x10^3/uL (0.0-0.2) Prothrombin Time 20.5SEC (11.7-14.0) Prothromb Time International Ratio 1.9 (0.8-1.1) Sodium Level 138mmol/L (136-145) Potassium Level 4.5mmol/L (3.5-5.1) Chloride Level 104mmol/L (98-107) Carbon Dioxide Level 25mmol/L (21-32) Anion Gap 9 (6-14) Blood Urea Nitrogen 17mg/dL (7-20) Creatinine 1.6mg/dL (0.6-1.0) Estimated GFR (Cockcroft-Gault) 32.2 Glucose Level 136mg/dL (70-99) Calcium Level 7.6mg/dL (8.5-10.1) Magnesium Level 2.0mg/dL (1.8-2.4) Heparin Anti-Xa Act, Unfractionated < 0.10IU/mL (0.30-0.70) Medications Active Scripts Medications Dose Route/Sig Days Date Category Gabapentin 300 Mg Capsule 900 Mg PO TID 01/03/17 Reported Claritin (Loratadine) 10 Mg Tablet 1 Tab PO DAILY PRN 11/22/16 Reported Bactrim 400-80 Mg Tablet (Sulfamethoxazole/Trimethoprim) 1 Each Tablet 1 Tab PO BID 11/22/16 Reported Gabapentin 300 Mg Capsule 300 Mg PO TID 11/22/16 Reported Zestril (Lisinopril) 10 Mg Tablet 10 Mg PO DAILY 11/22/16 Reported Cyanocobalamin Injection (Cyanocobalamin (Vitamin B-12)) 1,000 Mcg/1 Ml Vial 1,000 Mcg QMONTH 05/28/16 Reported Percocet 5-325 Mg Tablet (Oxycodone/Acetaminophen) 1 Each Tablet 1-2 Tab PO Q4-6HRS 05/28/16 Reported Prilosec Otc (Omeprazole Magnesium) 20 Mg Tablet.dr 20 Mg PO DAILY 05/28/16 Reported Impression . 1. Acute respiratory failure/distress, multifactorial, secondary to acute pulmonary edema. 2. Metastatic cholangiocarcinoma, status post recent chemotherapy, last received on 12/24/2016. 3. Acute renal failure, requiring hemodialysis, currently off of dialysis. 4. Acute blood loss anemia, status post transfusion. 5. Right upper extremity deep venous thrombosis, diagnosed on 01/02/2017. Continue anticoagulation. 6. Peripheral neuropathy. 7. Abnormal x-ray compatible with pulmonary edema. 8. Multiple other comorbidities. 9. Acute blood loss anemia Plan . REPEAT CXR MUCH IMPROVED HOLD ANTICOAGULANT TRANSFUSE 1. The patient was given stat IV Lasix. We will continue Lasix for several days and monitor renal function. 2. Obtain echocardiogram to assess ejection fraction. 3. If no improvement with Lasix, this could be related to TRALI, transfusion-related acute lung injury, DOUBT CXR HAS IMPROVED WITH DIURESES 4. P.r.n. nebulized treatments. 5. Continue other support with heparin. 6. Correct electrolyte abnormalities. 7. If the patient should deteriorate, we will proceed with p.r.n. BiPAP. ROULA BALLESTEROS MD Jan 09, 2017 14:07
[2017-01-09 14:56] LABS: CALCIUM 7.7 mg/dL (8.5-10.1); CREATININE 1.5 mg/dL (0.6-1.0); GFR 34.6; PHOSPHORUS 5.7 mg/dL (2.6-4.7); POTASSIUM 4.6 mmol/L (3.5-5.1)
--- NOTE | 2017-01-09 15:54 | PDOC ---
PROGRESS NOTES Chief Complaint Chief Complaint CC: Chills, feeling cold -cellulitis bilaterally lower extremities -acute renal failure -cholangiocarcinoma -hypertension -peripheral neuropathy -DVT -PE -Cholecystectomy -hysterectomy -oophorectomy -salpingectomy -UTI -anxiety -skin cancer History of Present Illness History of Present Illness Ms. Bruno was in bed when we visited her, and her and son were present. She appeared lethargic and minimally confused, both of which were affirmed by the . They also report that she had severe pain overnight in her abdominal region. We discussed the possibility of this being secondary to transient peritonitis from bleeding. The patient reports she still has left upper quadrant pain, though it is not as bad as it was overnight. We discussed her case at length with the and son. The patient's nurse was consulted during our visit. Vitals Vitals Vital Signs Date Time Temp Pulse Resp B/P Pulse Ox O2 Delivery O2 Flow Rate FiO2 01/09/17 14:15 97.9 100 20 100/58 97.9 01/09/17 13:03 100 Nasal Cannula 3.0 Physical Exam General: Cooperative, mild distress Heart: Regular rate, Normal S1, Normal S2 Lungs: Clear, Other (No chest retractions were present.) Abdomen: Soft, Other (Tenderness in LUQ ) Extremities: No clubbing, Normal pulses Skin: No rashes, No breakdown Labs LABS Laboratory Tests Test 01/09/17 05:20 01/09/17 06:15 01/09/17 09:15 Sodium Level 138mmol/L (136-145) 138mmol/L (136-145) Potassium Level 4.6mmol/L (3.5-5.1) 4.5mmol/L (3.5-5.1) Chloride Level 103mmol/L (98-107) 104mmol/L (98-107) Carbon Dioxide Level 25mmol/L (21-32) 25mmol/L (21-32) Anion Gap 10 (6-14) 9 (6-14) Blood Urea Nitrogen 17mg/dL (7-20) 17mg/dL (7-20) Creatinine 1.5mg/dL (0.6-1.0) 1.6mg/dL (0.6-1.0) Estimated GFR (Cockcroft-Gault) 34.6 32.2 Glucose Level 135mg/dL (70-99) 136mg/dL (70-99) Calcium Level 7.7mg/dL (8.5-10.1) 7.6mg/dL (8.5-10.1) Phosphorus Level 5.7mg/dL (2.6-4.7) Albumin 3.0g/dL (3.4-5.0) White Blood Count 6.0x10^3/uL (4.0-11.0) Red Blood Count 1.97x10^6/uL (3.50-5.40) Hemoglobin 6.3g/dL (12.0-15.5) Hematocrit 19.0% (36.0-47.0) Mean Corpuscular Volume 96fL (79-100) Mean Corpuscular Hemoglobin 32pg (25-35) Mean Corpuscular Hemoglobin Concent 34g/dL (31-37) Red Cell Distribution Width 17.2% (11.5-14.5) Platelet Count 287x10^3/uL (140-400) Neutrophils (%) (Auto) 30% (31-73) Lymphocytes (%) (Auto) 7% (24-48) Monocytes (%) (Auto) 64% (0-9) Eosinophils (%) (Auto) 0% (0-3) Basophils (%) (Auto) 0% (0-3) Neutrophils # (Auto) 1.8x10^3uL (1.8-7.7) Lymphocytes # (Auto) 0.4x10^3/uL (1.0-4.8) Monocytes # (Auto) 3.9x10^3/uL (0.0-1.1) Eosinophils # (Auto) 0.0x10^3/uL (0.0-0.7) Basophils # (Auto) 0.0x10^3/uL (0.0-0.2) Prothrombin Time 20.5SEC (11.7-14.0) Prothromb Time International Ratio 1.9 (0.8-1.1) Magnesium Level 2.0mg/dL (1.8-2.4) Heparin Anti-Xa Act, Unfractionated < 0.10IU/mL (0.30-0.70) Review of Systems Review of Systems The patient does not report having nausea or vomiting. She has a sore right calf muscle. Assessment and Plan Assessmemt and Plan Problems Medical Problems: (1) Cellulitis Status: Acute Assessment CC: Chills, feeling cold -cellulitis bilaterally lower extremities -acute renal failure -cholangiocarcinoma -hypertension -peripheral neuropathy -DVT -PE -Cholecystectomy -hysterectomy -oophorectomy -salpingectomy -UTI -anxiety -skin cancer 1. Consulting cardiothoracic surgery 2. Consulting cardiology 3. Ordering coagulation studies 4. Recheck labs 5. PT/OT 6. Continue breathing treatments 7. Continue albumin and furosemide for edema 8. Continue home medications 9. Continue pain and sedative management 10. Appreciate subspecialists' consultation Her prognosis is guarded. Problems: Comment Review of Relevant I have reviewed the following items ketty (where applicable) has been applied. Labs Laboratory Tests Test 01/08/17 06:00 01/08/17 12:30 01/09/17 05:20 01/09/17 06:15 White Blood Count 4.8x10^3/uL (4.0-11.0) 6.0x10^3/uL (4.0-11.0) Red Blood Count 2.16x10^6/uL (3.50-5.40) 1.97x10^6/uL (3.50-5.40) Hemoglobin 7.1g/dL (12.0-15.5) 6.3g/dL (12.0-15.5) Hematocrit 21.8% (36.0-47.0) 19.0% (36.0-47.0) Mean Corpuscular Volume 101fL (79-100) 96fL (79-100) Mean Corpuscular Hemoglobin 33pg (25-35) 32pg (25-35) Mean Corpuscular Hemoglobin Concent 33g/dL (31-37) 34g/dL (31-37) Red Cell Distribution Width 26.4% (11.5-14.5) 17.2% (11.5-14.5) Platelet Count 179x10^3/uL (140-400) 287x10^3/uL (140-400) Neutrophils (%) (Auto) 29% (31-73) 30% (31-73) Lymphocytes (%) (Auto) 13% (24-48) 7% (24-48) Monocytes (%) (Auto) 56% (0-9) 64% (0-9) Eosinophils (%) (Auto) 1% (0-3) 0% (0-3) Basophils (%) (Auto) 1% (0-3) 0% (0-3) Neutrophils # (Auto) 1.4x10^3uL (1.8-7.7) 1.8x10^3uL (1.8-7.7) Lymphocytes # (Auto) 0.3x10^3/uL (1.0-4.8) 0.4x10^3/uL (1.0-4.8) Monocytes # (Auto) 2.7x10^3/uL (0.0-1.1) 3.9x10^3/uL (0.0-1.1) Eosinophils # (Auto) 0.0x10^3/uL (0.0-0.7) 0.0x10^3/uL (0.0-0.7) Basophils # (Auto) 0.0x10^3/uL (0.0-0.2) 0.0x10^3/uL (0.0-0.2) Segmented Neutrophils % 24% (35-66) Band Neutrophils % 1% (0-9) Lymphocytes % 15% (24-48) Atypical Lymphocytes % (Manual) 1% (0-0) Monocytes % 59% (0-10) Nucleated Red Blood Cells 1 Platelet Estimate Adequate (ADEQUATE) Polychromasia Present Anisocytosis Present Macrocytosis Present Prothrombin Time 18.0SEC (11.7-14.0) 20.5SEC (11.7-14.0) Prothromb Time International Ratio 1.6 (0.8-1.1) 1.9 (0.8-1.1) Heparin Anti-Xa Act, Unfractionated 0.98IU/mL (0.30-0.70) 0.84IU/mL (0.30-0.70) Sodium Level 138mmol/L (136-145) 138mmol/L (136-145) 138mmol/L (136-145) Potassium Level 3.7mmol/L (3.5-5.1) 4.6mmol/L (3.5-5.1) 4.5mmol/L (3.5-5.1) Chloride Level 103mmol/L (98-107) 103mmol/L (98-107) 104mmol/L (98-107) Carbon Dioxide Level 26mmol/L (21-32) 25mmol/L (21-32) 25mmol/L (21-32) Anion Gap 9 (6-14) 10 (6-14) 9 (6-14) Blood Urea Nitrogen 12mg/dL (7-20) 17mg/dL (7-20) 17mg/dL (7-20) Creatinine 1.0mg/dL (0.6-1.0) 1.5mg/dL (0.6-1.0) 1.6mg/dL (0.6-1.0) Estimated GFR (Cockcroft-Gault) 55.3 34.6 32.2 BUN/Creatinine Ratio 12 (6-20) Glucose Level 86mg/dL (70-99) 135mg/dL (70-99) 136mg/dL (70-99) Calcium Level 8.0mg/dL (8.5-10.1) 7.7mg/dL (8.5-10.1) 7.6mg/dL (8.5-10.1) Phosphorus Level 4.3mg/dL (2.6-4.7) 5.7mg/dL (2.6-4.7) Magnesium Level 1.6mg/dL (1.8-2.4) 2.0mg/dL (1.8-2.4) Total Bilirubin 0.5mg/dL (0.2-1.0) Aspartate Amino Transf (AST/SGOT) 45U/L (15-37) Alanine Aminotransferase (ALT/SGPT) 32U/L (14-59) Alkaline Phosphatase 134U/L (46-116) Total Protein 5.3g/dL (6.4-8.2) Albumin 3.4g/dL (3.4-5.0) 3.0g/dL (3.4-5.0) Albumin/Globulin Ratio 1.8 (1.0-1.7) Test 01/09/17 09:15 Heparin Anti-Xa Act, Unfractionated < 0.10IU/mL (0.30-0.70) Laboratory Tests Test 01/09/17 05:20 01/09/17 06:15 01/09/17 09:15 Sodium Level 138mmol/L (136-145) 138mmol/L (136-145) Potassium Level 4.6mmol/L (3.5-5.1) 4.5mmol/L (3.5-5.1) Chloride Level 103mmol/L (98-107) 104mmol/L (98-107) Carbon Dioxide Level 25mmol/L (21-32) 25mmol/L (21-32) Anion Gap 10 (6-14) 9 (6-14) Blood Urea Nitrogen 17mg/dL (7-20) 17mg/dL (7-20) Creatinine 1.5mg/dL (0.6-1.0) 1.6mg/dL (0.6-1.0) Estimated GFR (Cockcroft-Gault) 34.6 32.2 Glucose Level 135mg/dL (70-99) 136mg/dL (70-99) Calcium Level 7.7mg/dL (8.5-10.1) 7.6mg/dL (8.5-10.1) Phosphorus Level 5.7mg/dL (2.6-4.7) Albumin 3.0g/dL (3.4-5.0) White Blood Count 6.0x10^3/uL (4.0-11.0) Red Blood Count 1.97x10^6/uL (3.50-5.40) Hemoglobin 6.3g/dL (12.0-15.5) Hematocrit 19.0% (36.0-47.0) Mean Corpuscular Volume 96fL (79-100) Mean Corpuscular Hemoglobin 32pg (25-35) Mean Corpuscular Hemoglobin Concent 34g/dL (31-37) Red Cell Distribution Width 17.2% (11.5-14.5) Platelet Count 287x10^3/uL (140-400) Neutrophils (%) (Auto) 30% (31-73) Lymphocytes (%) (Auto) 7% (24-48) Monocytes (%) (Auto) 64% (0-9) Eosinophils (%) (Auto) 0% (0-3) Basophils (%) (Auto) 0% (0-3) Neutrophils # (Auto) 1.8x10^3uL (1.8-7.7) Lymphocytes # (Auto) 0.4x10^3/uL (1.0-4.8) Monocytes # (Auto) 3.9x10^3/uL (0.0-1.1) Eosinophils # (Auto) 0.0x10^3/uL (0.0-0.7) Basophils # (Auto) 0.0x10^3/uL (0.0-0.2) Prothrombin Time 20.5SEC (11.7-14.0) Prothromb Time International Ratio 1.9 (0.8-1.1) Magnesium Level 2.0mg/dL (1.8-2.4) Heparin Anti-Xa Act, Unfractionated < 0.10IU/mL (0.30-0.70) Microbiology 12/27/16 Blood Culture - Final, Complete NO GROWTH AFTER 5 DAYS 12/31/16 Urine Culture - Final, Complete 12/31/16 Urine Culture Result 1 (MANE) - Final, Complete Medications Current Medications Acetaminophen (Tylenol) 650 mg 1X ONCE PO Last administered on 12/27/16 09:11 ; Start 12/27/16 at 08:15; Stop 12/27/16 at 08:22; Status DC Diphenhydramine HCl (Benadryl) 25 mg 1X ONCE PO Last administered on 09:12; Start 12/27/16 at 08:15; Stop 12/27/16 at 08:22; Status DC Furosemide (Lasix) 20 mg 1X ONCE IVP ; Start 12/27/16 at 08:15; Stop 12/27/16 at 08:22; Status DC Fentanyl Citrate (Fentanyl 2ml Vial) 25 mcg PRN QID PRN IV PAIN; Start at 16:45; Stop 12/29/16 at 21:00; Status DC Lisinopril (Prinivil) 10 mg DAILY PO ; Start 12/28/16 at 09:00; Stop 12/28/16 at 09:00; Status DC Oxycodone/ Acetaminophen (Percocet 5/325) 1 tab Q4HRS PRN PO MILD/MODERATE PAIN Last administered on 01/09/17 01:27; Start 12/27/16 at 16:45 Gabapentin (Neurontin) 300 mg TID PO Last administered on 12/28/16 10:44; Start 12/27/16 at 21:00; Stop 12/28/16 at 15:23; Status DC Cetirizine HCl (Zyrtec) 10 mg PRN DAILY PRN PO ALLERGIES; Start 12/28/16 at 09: 00 Pantoprazole Sodium (Protonix) 40 mg DAILYAC PO Last administered on 01/09/17 06:31; Start 12/28/16 at 07:30 Oxycodone/ Acetaminophen 2 tab 2 tab Q4HRS PRN PO SEVERE PAIN Last administered on 01/07/17 20:54; Start 12/27/16 at 16:45 Sodium Chloride (Iv Sodium Chloride 0.9% 1000ml Bag) 1,000 ml @ 75 mls/hr [id number] IV Last administered on 12/28/16 07:12; Start 12/27/16 at 17:30; Stop 12/28/16 at 08:15; Status DC Piperacillin Sod/ Tazobactam Sod (Zosyn Per Pharmacy) 1 each PRN DAILY PRN MC SEE COMMENTS; Start 12/27/16 at 17:30; Stop 12/28/16 at 07:27; Status DC Vancomycin HCl 1 each 1 each PRN DAILY PRN MC SEE COMMENTS Last administered on 12/27/16 18:45; Start 12/27/16 at 17:30; Stop 12/27/16 at 18:51; Status DC Vancomycin HCl 2 gm/Sodium Chloride 500 ml @ 250 mls/hr 1X ONCE IV ; Start at 17:45; Stop 12/27/16 at 18:51; Status DC Piperacillin Sod/ Tazobactam Sod 3.375 gm/Sodium Chloride 50 ml @ 100 mls/hr 1X ONCE IV Last administered on 12/27/16 18:07; Start 12/27/16 at 18:00; Stop 12/27/16 at 18:29; Status DC Piperacillin Sod/ Tazobactam Sod 2.25 gm/Sodium Chloride 50 ml @ 100 mls/hr Q6HRS IV Last administered on 12/28/16 06:08; Start 12/28/16 at 00:00; Stop at 07:31; Status DC Vancomycin HCl 1.5 gm/Sodium Chloride 500 ml @ 250 mls/hr Q48H IV ; Start 12/29 at 20:00; Stop 12/29/16 at 20:00; Status DC Micafungin Sodium 100 mg/Dextrose 100 ml @ 100 mls/hr Q24H IV Last administered on 12/31/16 09:13; Start 12/28/16 at 08:00; Stop 12/31/16 at 10:43 ; Status DC Linezolid 300 ml @ 300 mls/hr Q12HR IV Last administered on 12/31/16 09:13; Start 12/28/16 at 09:00; Stop 12/31/16 at 10:43; Status DC Piperacillin Sod/ Tazobactam Sod 2.25 gm/Sodium Chloride 50 ml @ 100 mls/hr Q8HRS IV Last administered on 01/03/17 06:04; Start 12/28/16 at 14:00; Stop at 13:01; Status DC Calcium Chloride 2000 mg/Sodium Chloride 120 ml @ 240 mls/hr 1X ONCE IV Last administered on 12/28/16 08:54; Start 12/28/16 at 08:00; Stop 12/28/16 at 08:29 ; Status DC Magnesium Sulfate/ Dextrose (Magnesium Sulfate PREMIX 2GM) 50 ml @ 25 mls/hr PRN DAILY PRN IV for Mag < 1.7 on am labs Last administered on 01/04/17 09:50 ; Start 12/28/16 at 08:15; Stop 01/06/17 at 11:48; Status DC Sodium Bicarbonate 50 meq 50 meq Q2H IV Last administered on 12/28/16 15:33; Start 12/28/16 at 08:30; Stop 12/28/16 at 10:31; Status DC Sodium Chloride 500 ml @ 0 mls/hr PRN QID PRN IV UO< 30cc/hr over previous 6hrs ; Start 12/28/16 at 08:15; Stop 01/03/17 at 18:34; Status DC Sodium Bicarbonate/ Dextrose 1,150 ml @ 100 mls/hr [id number] IV Last administered on 12/30/16 06:08; Start 12/28/16 at 09:00; Stop 12/30/16 at 08:59 ; Status DC Heparin Sodium (Porcine) (Heparin Sodium) 10,000 unit STK-MED ONCE .ROUTE ; Start 12/28/16 at 08:46; Stop 12/28/16 at 08:47; Status DC Lidocaine/Sodium Bicarbonate 20 ml 20 ml STK-MED ONCE IJ ; Start 12/28/16 at 08: 47; Stop 12/28/16 at 08:48; Status DC Heparin Sodium/ Sodium Chloride 500 ml @ As Directed STK-MED ONCE .ROUTE ; Start 12/28/16 at 08:47; Stop 12/28/16 at 08:48; Status DC Lidocaine/Sodium Bicarbonate (Buffered Lidocaine 1%) 3 ml 1X ONCE IJ Last administered on 12/28/16 10:10; Start 12/28/16 at 09:00; Stop 12/28/16 at 09:01 ; Status DC Heparin Sodium/ Sodium Chloride 60 unit 1X ONCE IV Last administered on 10:11; Start 12/28/16 at 09:00; Stop 12/28/16 at 09:01; Status DC Heparin Sodium (Porcine) (Heparin Sodium) 2,500 unit 1X ONCE INT CAT Last administered on 12/28/16 10:10; Start 12/28/16 at 09:00; Stop 12/28/16 at 09:01 ; Status DC Midazolam HCl (Versed) 2 mg STK-MED ONCE .ROUTE ; Start 12/28/16 at 09:41; Stop 12/28/16 at 09:42; Status DC Saliva Substitute (Biotene Moisturizing Mouth) 2 spray PRN Q15MIN PRN PO DRY MOUTH Last administered on 12/31/16 17:53; Start 12/28/16 at 13:15 Gabapentin (Neurontin) 300 mg DAILY PO Last administered on 01/03/17 09:06; Start 12/29/16 at 09:00; Stop 01/03/17 at 18:21; Status DC Acetaminophen (Tylenol) 650 mg PRN Q6HRS PRN PO MILD PAIN Last administered on 01/08/17 03:23; Start 12/28/16 at 18:15 Ondansetron HCl (Zofran) 4 mg PRN Q6HRS PRN IV NAUSEA/VOMITING Last administered on 12/29/16 11:10; Start 12/29/16 at 10:45; Stop 12/29/16 at 13:53 ; Status DC Ondansetron HCl (Zofran) 8 mg PRN Q8HRS PRN IV NAUSEA/VOMITING Last administered on 12/31/16 03:35; Start 12/29/16 at 14:00; Stop 12/31/16 at 09:03 ; Status DC Prochlorperazine Edisylate 10 mg 10 mg 1X ONCE IV Last administered on 14:00; Start 12/29/16 at 14:00; Stop 12/29/16 at 14:01; Status DC Sodium Chloride 500 ml @ 500 mls/hr 1X ONCE IV Last administered on 23:20; Start 12/29/16 at 23:30; Stop 12/30/16 at 00:29; Status DC Sodium Chloride 500 ml @ 500 mls/hr 1X ONCE IV Last administered on 00:05; Start 12/30/16 at 00:00; Stop 12/30/16 at 00:59; Status DC Sodium Chloride 1,000 ml @ 1,000 mls/hr Q1H PRN IV hypotension; Start 12/30/16 at 08:03; Stop 12/30/16 at 14:02; Status DC Albumin Human (Albuminar) 200 ml @ 200 mls/hr 1X PRN PRN IV Hypotension Last administered on 12/30/16 09:22; Start 12/30/16 at 08:15; Stop 12/30/16 at 14:14 ; Status DC Sodium Chloride (Normal Saline Flush) 10 ml 1X PRN PRN IV AP catheter pack; Start 12/30/16 at 08:15; Stop 12/31/16 at 08:14; Status DC Sodium Chloride (Normal Saline Flush) 10 ml 1X PRN PRN IV RN OUTPATIENT SURGERY catheter pack; Start 12/30/16 at 08:15; Stop 12/31/16 at 08:14; Status DC Info (PHARMACY MONITORING -- do not chart) 1 each PRN DAILY PRN MC SEE COMMENTS ; Start 12/30/16 at 08:15; Stop 01/08/17 at 12:44; Status DC Info (PHARMACY MONITORING -- do not chart) 1 each PRN DAILY PRN MC SEE COMMENTS ; Start 12/30/16 at 08:15; Status UNV Paricalcitol (Zemplar) 5 mcg 3X/WEEK IV Last administered on 01/03/17 09:06; Start 12/31/16 at 09:00; Stop 01/04/17 at 11:03; Status DC Calcium Acetate 1334 mg 1,334 mg TIDWMEALS PO Last administered on 01/04/17 09 :46; Start 12/30/16 at 12:00; Stop 01/04/17 at 11:03; Status DC Albumin Human (Plasmanate) 500 ml @ 120 mls/hr Q4HRS IV Last administered on 16:45; Start 12/30/16 at 12:00; Stop 12/30/16 at 19:59; Status DC Ondansetron HCl (Zofran) 8 mg PRN Q6HRS PRN IV NAUSEA/VOMITING, 2ND CHOICE Last administered on 01/03/17 08:59; Start 12/31/16 at 08:58 Lorazepam (Ativan) 0.5 mg PRN Q4HRS PRN IV ANXIETY / AGITATION Last administered on 01/08/17 12:50; Start 12/31/16 at 09:00 Prochlorperazine Edisylate (Compazine) 10 mg PRN Q6HRS PRN IM NAUSEA/VOMITING Last administered on 12/31/16 09:15; Start 12/31/16 at 09:00; Stop 01/01/17 at 11:48; Status DC Metoclopramide HCl 5 mg 5 mg PRN Q6HRS PRN IV NAUSEA/VOMITING, 1ST CHOICE Last administered on 01/01/17 09:42; Start 12/31/16 at 11:45 Magnesium Sulfate/ Dextrose 50 ml @ 25 mls/hr 1X ONCE IV Last administered on 12/31/16 17:54; Start 12/31/16 at 15:00; Stop 12/31/16 at 16:59; Status DC Albumin Human (Plasmanate) 500 ml @ 75 mls/hr Q6H40M IV Last administered on 03:44; Start 12/31/16 at 15:15; Stop 01/01/17 at 11:14; Status DC Prochlorperazine Edisylate (Compazine) 10 mg PRN Q6HRS PRN IV NAUSEA/VOMITING, 3RD CHOICE Last administered on 01/01/17 17:38; Start 01/01/17 at 11:45 Potassium Chloride (Klor-Con) 40 meq 1X ONCE PO Last administered on 13:02; Start 01/01/17 at 12:00; Stop 01/01/17 at 12:01; Status DC Furosemide (Lasix) 40 mg 1X ONCE IVP Last administered on 01/01/17 14:24; Start 01/01/17 at 14:00; Stop 01/01/17 at 14:01; Status DC Albuterol/ Ipratropium (Duoneb) 3 ml PRN Q6HRS PRN NEB SHORTNESS OF BREATH Last administered on 01/05/17 11:26; Start 01/01/17 at 13:45; Stop 01/05/17 at 22:40; Status DC Furosemide (Lasix) 40 mg 1X ONCE IVP Last administered on 01/02/17 11:43; Start 01/02/17 at 10:45; Stop 01/02/17 at 10:46; Status DC Potassium Chloride 40 meq 40 meq 1X ONCE PO Last administered on 01/02/17 13: 21; Start 01/02/17 at 13:15; Stop 01/02/17 at 13:16; Status DC Heparin Sodium/ Dextrose 500 ml @ 0 mls/hr CONT PRN IV SEE I/O RECORD Last administered on 01/08/17 13:35; Start 01/02/17 at 14:45; Stop 01/08/17 at 15:48 ; Status DC Heparin Sodium (Porcine) (Heparin Sodium) 3,150 unit PRN Q6HRS PRN IV FOR UFH LEVEL LESS THAN 0.2; Start 01/02/17 at 14:45; Stop 01/08/17 at 15:48; Status DC Heparin Sodium (Porcine) (Heparin Sodium) 1,550 unit PRN Q6HRS PRN IV FOR UFH LEVEL 0.2 - 0.29; Start 01/02/17 at 14:45; Stop 01/08/17 at 15:48; Status DC Warfarin Sodium (Coumadin Per Pharmacy) 1 each PRN DAILY PRN MC PER PROTOCOL Last administered on 01/03/17 11:34; Start 01/02/17 at 14:45; Stop 01/03/17 at 23:01; Status DC Warfarin Sodium (Coumadin) 5 mg 1X WARF ONCE PO Last administered on 17:41; Start 01/02/17 at 16:00; Stop 01/02/17 at 16:01; Status DC Warfarin Sodium (Coumadin - No Dose Today) 1 each 1X WARF ONCE MC ; Start 01/03 at 16:00; Stop 01/03/17 at 23:01; Status DC Cefpodoxime Proxetil (Vantin) 200 mg BID PO Last administered on 01/05/17 08: 53; Start 01/03/17 at 21:00; Stop 01/05/17 at 09:37; Status DC Cyanocobalamin (Vitamin B-12) 1,000 mcg QMONTH IM Last administered on 09:49; Start 01/04/17 at 09:00 Gabapentin 900 mg 900 mg TID PO Last administered on 01/08/17 09:28; Start at 21:00 Sodium Chloride (Iv Sodium Chloride 0.9% 1000ml Bag) 1,000 ml @ 75 mls/hr [id number] IV Last administered on 01/04/17 09:46; Start 01/03/17 at 18:45; Stop 01/04/17 at 11:04; Status DC Potassium Chloride 20 meq 20 meq 1X ONCE PO Last administered on 01/03/17 18: 56; Start 01/03/17 at 18:45; Stop 01/03/17 at 18:46; Status DC Magnesium Sulfate/ Dextrose 50 ml @ 25 mls/hr PRN DAILY PRN IV for Mag < 1.7 on am labs; Start 01/04/17 at 10:45; Status UNV Potassium Chloride 50 ml @ 50 mls/hr PRN Q6HRS PRN IV For K < 3.7 Last administered on 01/05/17 13:10; Start 01/04/17 at 10:45 Potassium Chloride 50 ml @ 50 mls/hr PRN Q2HR PRN IV total of 40mEq for K < 3.5 Last administered on 01/04/17 13:46; Start 01/04/17 at 10:45 Albumin Human (Albuminar) 100 ml @ 100 mls/hr TID IV Last administered on 01/06 08:53; Start 01/04/17 at 14:00; Stop 01/06/17 at 09:59; Status DC Warfarin Sodium (Coumadin) 4 mg DAILY16 PO Last administered on 01/08/17 17:15 ; Start 01/04/17 at 17:00; Stop 01/09/17 at 08:15; Status DC Warfarin Sodium 1 each 1 each PRN DAILY PRN MC SEE COMMENTS Last administered on 01/08/17 12:40; Start 01/04/17 at 17:00 Magnesium Sulfate/ Dextrose 100 ml @ 100 mls/hr 1X ONCE IV Last administered on 01/05/17 11:35; Start 01/05/17 at 11:00; Stop 01/05/17 at 11:59; Status DC Magnesium Sulfate/ Dextrose 50 ml @ 25 mls/hr PRN DAILY PRN IV for Mag < 1.7 on am labs Last administered on 01/08/17 09:27; Start 01/05/17 at 11:00 Potassium Chloride (KCl Premix 20meq) 50 ml @ 25 mls/hr Q2HR IV Last administered on 01/05/17 23:42; Start 01/05/17 at 16:00; Stop 01/05/17 at 19:59 ; Status DC Iohexol (Omnipaque 300 Mg/ml) 60 ml 1X ONCE IV ; Start 01/05/17 at 16:15; Stop 01/05/17 at 16:16; Status DC Iohexol (Omnipaque 240 Mg/ml) 30 ml 1X ONCE PO Last administered on 01/05/17 15:45; Start 01/05/17 at 16:15; Stop 01/05/17 at 16:16; Status DC Info (Do NOT chart on this entry -- for MONITORING) 1 each PRN DAILY PRN MC SEE COMMENTS; Start 01/05/17 at 16:15; Stop 01/07/17 at 16:14; Status DC Albuterol/ Ipratropium (Duoneb) 3 ml RTQID NEB Last administered on 01/09/17 13:02; Start 01/05/17 at 20:00 Budesonide (Pulmicort) 0.5 mg RTBID NEB Last administered on 01/09/17 07:49; Start 01/05/17 at 20:00 Furosemide (Lasix) 20 mg 1X ONCE IVP Last administered on 01/05/17 22:04; Start 01/05/17 at 22:00; Stop 01/05/17 at 22:01; Status DC Albuterol Sulfate (Ventolin Neb Soln) 2.5 mg PRN Q6HRS PRN NEB SHORTNESS OF BREATH Last administered on 01/08/17 03:37; Start 01/05/17 at 22:40 Furosemide (Lasix) 40 mg 1X ONCE IVP Last administered on 01/07/17 11:50; Start 01/07/17 at 11:30; Stop 01/07/17 at 11:31; Status DC Furosemide 40 mg 40 mg DAILY IVP Last administered on 01/09/17 10:18; Start at 09:00 Albumin Human (Albuminar) 100 ml @ 100 mls/hr DAILY IV Last administered on 10:25; Start 01/08/17 at 17:00; Stop 01/10/17 at 16:59 Tramadol HCl (Ultram) 50 mg PRN Q6HRS PRN PO MODERATE PAIN Last administered on 01/08/17 22:28; Start 01/08/17 at 22:15 Active Scripts Active Reported Gabapentin 300 Mg Capsule 900 Mg PO TID Claritin (Loratadine) 10 Mg Tablet 1 Tab PO DAILY PRN Bactrim 400-80 Mg Tablet (Sulfamethoxazole/Trimethoprim) 1 Each Tablet 1 Tab PO BID Gabapentin 300 Mg Capsule 300 Mg PO TID Zestril (Lisinopril) 10 Mg Tablet 10 Mg PO DAILY Cyanocobalamin Injection (Cyanocobalamin (Vitamin B-12)) 1,000 Mcg/1 Ml Vial 1, 000 Mcg QMONTH Percocet 5-325 Mg Tablet (Oxycodone/Acetaminophen) 1 Each Tablet 1-2 Tab PO Q4- 6HRS Prilosec Otc (Omeprazole Magnesium) 20 Mg Tablet.dr 20 Mg PO DAILY Vitals/I & O Vital Sign - Last 24 Hours 01/08/17 01/08/17 01/08/17 01/08/17 19:28 19:29 19:41 20:00 Temp 97.7 97.7 Pulse 87 Resp 18 B/P 95/45 Pulse Ox 97 97 100 O2 Delivery Nasal Cannula Nasal Cannula Nasal Cannula Nasal Cannula O2 Flow Rate 4.0 4.0 4.0 4.0 01/08/17 01/08/17 01/08/17 01/08/17 20:16 20:41 20:57 21:42 Temp 97.7 97.7 97.7 97.7 97.7 97.7 Pulse 88 82 86 Resp 18 18 18 B/P 106/55 88/49 116/63 Pulse Ox 100 O2 Delivery Nasal Cannula O2 Flow Rate 4.0 01/08/17 01/08/17 01/08/17 01/08/17 22:28 22:39 22:45 23:27 Temp 97.7 97.7 97.7 97.7 97.7 97.7 Pulse 85 85 82 Resp B/P 90/58 90/58 106/59 Pulse Ox 100 99 O2 Delivery Nasal Cannula Nasal Cannula O2 Flow Rate 4.0 4.0 01/08/17 01/08/17 01/09/17 01/09/17 23:30 23:55 00:40 01:27 Temp 97.7 97.6 97.7 97.6 Pulse 81 83 Resp 20 B/P 110/63 120/62 Pulse Ox 99 97 97 O2 Delivery Nasal Cannula Nasal Cannula Nasal Cannula O2 Flow Rate 4.0 4.0 4.0 01/09/17 01/09/17 01/09/17 01/09/17 01:45 01:51 02:30 03:00 Temp 97.6 97.7 97.6 97.7 Pulse 85 85 86 Resp 19 B/P 96/64 106/55 103/57 Pulse Ox 96 97 97 97 O2 Delivery Nasal Cannula Nasal Cannula Nasal Cannula Nasal Cannula O2 Flow Rate 4.0 4.0 4.0 4.0 01/09/17 01/09/17 01/09/17 01/09/17 03:23 07:00 07:50 07:54 Temp 97.7 97.7 Pulse 89 94 Resp 16 B/P 105/60 104/64 Pulse Ox 98 100 100 O2 Delivery Nasal Cannula Nasal Cannula Nasal Cannula O2 Flow Rate 4.0 4.0 4.0 01/09/17 01/09/17 01/09/17 01/09/17 09:00 11:00 12:00 13:03 Pulse 97 Resp 12 B/P 81/71 Pulse Ox 98 100 O2 Delivery Nasal Cannula Nasal Cannula Nasal Cannula Nasal Cannula O2 Flow Rate 4.0 4.0 4.0 3.0 01/09/17 01/09/17 14:00 14:15 Temp 97.8 97.9 97.8 97.9 Pulse 100 100 Resp 12 20 B/P 87/52 100/58 Intake and Output 01/08/17 01/08/17 01/09/17 15:00 23:00 07:00 Intake Total 1220 ml Output Total 825 ml Balance -825 ml 1220 ml DAMIEN HOPSON III DO Jan 09, 2017 15:54
[2017-01-09 21:56] LABS: BASO % 0 % (0-3); EOS % 0 % (0-3); HEMATOCRIT 23.9 % (36.0-47.0); LYMPH # 0.7 x10^3/uL (1.0-4.8); LYMPH % 6 % (24-48); MEAN CORPUSCULAR HEMOGLOBIN 32 pg (25-35); MEAN CORPUSCULAR HGB CONC 33 g/dL (31-37); MEAN CORPUSCULAR VOLUME 95 fL (79-100); MONO % 75 % (0-9); NEUT % 19 % (31-73); PLATELET COUNT 382 x10^3/uL (140-400); RED BLOOD COUNT 2.51 x10^6/uL (3.50-5.40); RED CELL DISTRIBUTION WIDTH 16.6 % (11.5-14.5); WHITE BLOOD COUNT 10.7 x10^3/uL (4.0-11.0)
[2017-01-09 21:59] LABS: INR 2.1 (0.8-1.1); PROTHROMBIN TIME PATIENT 22.3 SEC (11.7-14.0)
[2017-01-09 22:05] LABS: CALCIUM 7.8 mg/dL (8.5-10.1); GFR 24.9; POTASSIUM 4.6 mmol/L (3.5-5.1)
[2017-01-09 22:11] LABS: PLT ESTIMATE ADEQUATE (ADEQUATE); POLYCHROMASIA PRESENT
[2017-01-09 22:12] LABS: ANISOCYTOSIS SLIGHT; OVALOCYTES FEW; POIKILOCYTOSIS SLIGHT; SCHISTOCYTES OCC
--- NOTE | 2017-01-09 22:42 | RAD ---
PROCEDURE CT abdomen and pelvis without intravenous contrast. HISTORY Abdominal wall hematoma, evaluate for bleeding. TECHNIQUE Helical CT of the abdomen and pelvis was performed without intravenous or oral contrast. Exposure: One or more of the following individualized dose reduction techniques were utilized for this examination: 1. Automated exposure control. 2. Adjustment of the mA and/or kV according to patient size. 3. Use of iterative reconstruction technique. COMPARISON None. FINDINGS Evaluation of solid organs is limited by lack of intravenous contrast. Evaluation of enteric structures may be limited by lack of oral contrast. Images of lower chest demonstrate bilateral pleural effusions, incompletely seen. There is bilateral lower lobe consolidation and atelectasis, cannot exclude pneumonia. Small pericardial effusion is seen. Gallbladder is absent. Left hepatic lobe appears small. Postsurgical changes of the stomach can be seen. Spleen is unremarkable. Bilateral kidneys appear mildly dense, may represent residual contrast material from previous study versus artifact. Evaluation of pancreas is limited. Milligan catheter present in urinary bladder. Colonic diverticulosis is noted. Large amount of body wall edema is seen. Uterus is absent. There is a large left retroperitoneal hematoma. Maximum axial dimension of the hematoma is about 11 centimeters in transverse dimension by 9 centimeters in AP dimension. Craniocaudal extent is approximately 25 centimeters. Hematoma displaces the left kidney anteriorly. Aortic atherosclerosis is seen. IMPRESSION 1. Very large left retroperitoneal hematoma measuring roughly 11 x 9 x 25 centimeters. 2. Severe body wall edema. 3. Postsurgical changes of the stomach. 4. Pleural effusions. 5. Bilateral lower lobe consolidation, could be atelectasis, cannot exclude pneumonia. Electronically signed by: Zev Kwok MD (Jan 09, 2017 22:41:40)
--- NOTE | 2017-01-09 23:16 | PN ---
DATE: 01/09/2017 PROBLEM: Metastatic cholangiocarcinoma. SUBJECTIVE: The patient was transferred to the ICU after overnight deterioration, and discovery of left upper quadrant hematoma on abdominal ultrasound done yesterday afternoon. Anticoagulation has since been discontinued. There was also overnight hypotension limiting pain meds usage. At this time, the patient has been transferred to ICU. She is awake, answers questions appropriately. She reported pain adequately controlled at this time. She is maintaining on 4 liters of oxygen by nasal cannula. This morning, hemoglobin was noted to have dropped to 6.3 from 7.1 yesterday, packed red cell infusion had been initiated, and at the time of visit, her blood pressure has improved to systolic of 110s range. REVIEW OF SYSTEMS: No fever. Abdominal pain improved. No deterioration in her respiration/breathing in general. PHYSICAL EXAMINATION: GENERAL: Examination reveals an ill and pale-appearing 66-year-old female. She is awake, answers simple questions appropriately, her son as well as her are at bedside. VITAL SIGNS: Temperature 97.9, pulse 100, respiratory rate 20, blood pressure 100/58, satting 100% on 3 liters of nasal cannula. CHEST: Clear anteriorly. CARDIOVASCULAR: Regular rhythm. ABDOMEN: Soft, extremely gentle palpation did not induce exacerbation of abdominal pain. EXTREMITIES: Shows bilateral 3+ edema. LABORATORY DATA: Shows total white count of 6.0, platelet of 287. From this morning, hemoglobin dropped to 6.3. Transfusion ongoing. INR as of this morning was 1.9, creatinine this morning is 1.6. Abdominal limited ultrasound from yesterday afternoon showed a 17.7 cm left upper quadrant hematoma. A Chest x-ray, single view, this morning shows improving CHF. ASSESSMENT: Progressive cholangiocarcinoma, most recent disease progression noted in September of this year while at [facility]. She was started on gemcitabine and Xeloda at that point. She was unable to return to [facility] for reassessment of disease due to her acute illness and hospitalization here. I reviewed with the patient as well as her and son the generally aggressive nature of cholangiocarcinoma and at this time, all agreed that she is in no condition to receive additional chemotherapy without making a significant improvement. I also reviewed with the patient as well as her family members on consideration of palliative care with the goal of symptom management. Family does not appear to be ready for de-intensifying her care in general. However, I do think that they are aware of the long-term poor prognosis situation. PLAN: Continue supportive measures with transfusions, respiratory support. Follow up morning blood counts. If she does not make improvement, a change in goal of treatment to focus more on symptom control may be appropriate. Discussed the above with nursing staff also after visit and discussion with patient and family members. BILLIE ROLON MD DR: ELIF/bonnie JOB#: [id number] / [id number]
[2017-01-10] VITALS (23 sets, daily range): BP systolic 96–157; BP diastolic 51–79
[2017-01-10 06:25] LABS: BASO % 0 % (0-3); EOS % 0 % (0-3); HEMATOCRIT 23.9 % (36.0-47.0); HEMOGLOBIN 7.9 g/dL (12.0-15.5); LYMPH # 0.7 x10^3/uL (1.0-4.8); LYMPH % 5 % (24-48); MEAN CORPUSCULAR HEMOGLOBIN 32 pg (25-35); MEAN CORPUSCULAR HGB CONC 33 g/dL (31-37); MEAN CORPUSCULAR VOLUME 96 fL (79-100); MONO % 73 % (0-9); NEUT % 21 % (31-73); PLATELET COUNT 431 x10^3/uL (140-400); RED CELL DISTRIBUTION WIDTH 16.8 % (11.5-14.5); WHITE BLOOD COUNT 13.2 x10^3/uL (4.0-11.0)
[2017-01-10 06:41] LABS: ALBUMIN 3.3 g/dL (3.4-5.0); CREATININE 2.3 mg/dL (0.6-1.0); GFR 21.2; PHOSPHORUS 5.9 mg/dL (2.6-4.7); POTASSIUM 4.6 mmol/L (3.5-5.1)
[2017-01-10] MEDS: IPRATRPIUM/ALBUTEROL 0.5/2.5MG 3 ML NEBU. NEB SCH ×4 (07:59→19:57)
[2017-01-10] MEDS: BUDESONIDE 0.5 MG/2 ML NEBU. NEB SCH ×2 (08:00→19:57)
[2017-01-10] MEDS: GABAPENTIN 300 MG CAPSULE. PO SCH ×4 (08:21→22:18)
[2017-01-10] MEDS: FUROSEMIDE 40 MG/4 ML VIAL. IVP SCH (08:21)
[2017-01-10] MEDS: PANTOPRAZOLE 40 MG TABLET.DR. PO SCH (08:21)
[2017-01-10] MEDS: ALBUMIN HUMAN 25% 100 ML IV SCH (08:22)
[2017-01-10] MEDS ORDERED: PHYTONADIONE 10 MG/ML AMPUL. SQ ONE (09:15)
--- NOTE | 2017-01-10 09:16 | PDOC ---
PROGRESS NOTES Subjective Subjective c/c - f/u of Cholangiocarcinoma stage 4 ROS - has edema Objective Objective Vital Signs Date Time Temp Pulse Resp B/P Pulse Ox O2 Delivery O2 Flow Rate FiO2 01/10/17 08:00 94 Nasal Cannula 3.0 01/10/17 07:15 98.2 105 16 137/65 98.2 Intake and Output 01/10/17 07:00 Intake Total 855 ml Output Total 65 ml Balance 790 ml Intake Oral 160 ml IV Total 100 ml Blood Product 595 ml Output Urine Total 65 ml Physical Exam Heart: Normal S1, Normal S2 General: Alert, Oriented X3 Lungs: Clear to auscultation Psych/Mental Status: Mental status NL Assessment Assessment Problems Medical Problems: (1) Cellulitis Status: Acute IMPRESSION AND PLAN: 1. Cholangiocarcinoma stage 4. She is on chemotherapy with Gemzar and Xeloda, her last treatment was given on 12/24/2016. I will hold further chemotherapy in view of cellulitis and renal failure and she will follow up with me upon discharge. CT 01/05/[address] 2.4 cm. I agree that she has likely gemzar related toxicities with ARF and edema. 2. Acute renal failure, management per Dr. Kerr. Pt and concerned about persistent edema. Cr now worse. 3. Hypocalcemia. s/p IV calcium. 4. Hypoalbuminemia due to malnutrition from malignancy. 5. Cellulitis. I discussed with Dr. Óscar Thacker. She was started on antibiotics for cellulitis of bilateral lower extremities. She had a venous Doppler of bilateral lower extremities on 12/28/2016 that is negative for DVT. 6. Twitching - resolved. 7. Recurrent LE edema, rash. At [facility] last week was thought to be c/w gemzar- related LE swelling/ capillary leak causing erythema, no signs infxn. Improved with abx. 8. DVT - RUE 01/02/17 - agree to d/c heparin and warfarin due to Very large left retroperitoneal hematoma measuring roughly 11 x 9 x 25 centimeters. 9. Thrombocytopenia - s/p platelet transfusion 01/04/17.Resolved 10. Dyspnea 11. Coagulopathy - ordered Vit K 10 mg s/q. 01/10/17. Comment Review of Relevant I have reviewed the following items ketty (where applicable) has been applied. Labs Laboratory Tests Test 01/08/17 12:30 01/09/17 05:20 01/09/17 06:15 01/09/17 09:15 Heparin Anti-Xa Act, Unfractionated 0.84IU/mL (0.30-0.70) < 0.10IU/mL (0.30-0.70) Sodium Level 138mmol/L (136-145) 138mmol/L (136-145) Potassium Level 4.6mmol/L (3.5-5.1) 4.5mmol/L (3.5-5.1) Chloride Level 103mmol/L (98-107) 104mmol/L (98-107) Carbon Dioxide Level 25mmol/L (21-32) 25mmol/L (21-32) Anion Gap 10 (6-14) 9 (6-14) Blood Urea Nitrogen 17mg/dL (7-20) 17mg/dL (7-20) Creatinine 1.5mg/dL (0.6-1.0) 1.6mg/dL (0.6-1.0) Estimated GFR (Cockcroft-Gault) 34.6 32.2 Glucose Level 135mg/dL (70-99) 136mg/dL (70-99) Calcium Level 7.7mg/dL (8.5-10.1) 7.6mg/dL (8.5-10.1) Phosphorus Level 5.7mg/dL (2.6-4.7) Albumin 3.0g/dL (3.4-5.0) White Blood Count 6.0x10^3/uL (4.0-11.0) Red Blood Count 1.97x10^6/uL (3.50-5.40) Hemoglobin 6.3g/dL (12.0-15.5) Hematocrit 19.0% (36.0-47.0) Mean Corpuscular Volume 96fL (79-100) Mean Corpuscular Hemoglobin 32pg (25-35) Mean Corpuscular Hemoglobin Concent 34g/dL (31-37) Red Cell Distribution Width 17.2% (11.5-14.5) Platelet Count 287x10^3/uL (140-400) Neutrophils (%) (Auto) 30% (31-73) Lymphocytes (%) (Auto) 7% (24-48) Monocytes (%) (Auto) 64% (0-9) Eosinophils (%) (Auto) 0% (0-3) Basophils (%) (Auto) 0% (0-3) Neutrophils # (Auto) 1.8x10^3uL (1.8-7.7) Lymphocytes # (Auto) 0.4x10^3/uL (1.0-4.8) Monocytes # (Auto) 3.9x10^3/uL (0.0-1.1) Eosinophils # (Auto) 0.0x10^3/uL (0.0-0.7) Basophils # (Auto) 0.0x10^3/uL (0.0-0.2) Prothrombin Time 20.5SEC (11.7-14.0) Prothromb Time International Ratio 1.9 (0.8-1.1) Magnesium Level 2.0mg/dL (1.8-2.4) Nasal Screen MRSA (PCR) Negative (Negative) Test 01/09/17 21:15 01/10/17 06:00 White Blood Count 10.7x10^3/uL (4.0-11.0) 13.2x10^3/uL (4.0-11.0) Red Blood Count 2.51x10^6/uL (3.50-5.40) 2.50x10^6/uL (3.50-5.40) Hemoglobin 8.0g/dL (12.0-15.5) 7.9g/dL (12.0-15.5) Hematocrit 23.9% (36.0-47.0) 23.9% (36.0-47.0) Mean Corpuscular Volume 95fL (79-100) 96fL (79-100) Mean Corpuscular Hemoglobin 32pg (25-35) 32pg (25-35) Mean Corpuscular Hemoglobin Concent 33g/dL (31-37) 33g/dL (31-37) Red Cell Distribution Width 16.6% (11.5-14.5) 16.8% (11.5-14.5) Platelet Count 382x10^3/uL (140-400) 431x10^3/uL (140-400) Neutrophils (%) (Auto) 19% (31-73) 21% (31-73) Lymphocytes (%) (Auto) 6% (24-48) 5% (24-48) Monocytes (%) (Auto) 75% (0-9) 73% (0-9) Eosinophils (%) (Auto) 0% (0-3) 0% (0-3) Basophils (%) (Auto) 0% (0-3) 0% (0-3) Neutrophils # (Auto) 2.0x10^3uL (1.8-7.7) 2.8x10^3uL (1.8-7.7) Lymphocytes # (Auto) 0.7x10^3/uL (1.0-4.8) 0.7x10^3/uL (1.0-4.8) Monocytes # (Auto) 8.0x10^3/uL (0.0-1.1) 9.6x10^3/uL (0.0-1.1) Eosinophils # (Auto) 0.0x10^3/uL (0.0-0.7) 0.0x10^3/uL (0.0-0.7) Basophils # (Auto) 0.0x10^3/uL (0.0-0.2) 0.0x10^3/uL (0.0-0.2) Segmented Neutrophils % 20% (35-66) Band Neutrophils % 4% (0-9) Lymphocytes % 6% (24-48) Monocytes % 65% (0-10) Metamyelocytes % 3% (0-0) Myelocytes % 2% (0-0) Platelet Estimate Adequate (ADEQUATE) Polychromasia Present Poikilocytosis Slight Anisocytosis Slight Ovalocytes Few Schistocytes Occ Prothrombin Time 22.3SEC (11.7-14.0) Prothromb Time International Ratio 2.1 (0.8-1.1) Sodium Level 138mmol/L (136-145) 137mmol/L (136-145) Potassium Level 4.6mmol/L (3.5-5.1) 4.6mmol/L (3.5-5.1) Chloride Level 103mmol/L (98-107) 103mmol/L (98-107) Carbon Dioxide Level 25mmol/L (21-32) 24mmol/L (21-32) Anion Gap 10 (6-14) 10 (6-14) Blood Urea Nitrogen 23mg/dL (7-20) 25mg/dL (7-20) Creatinine 2.0mg/dL (0.6-1.0) 2.3mg/dL (0.6-1.0) Estimated GFR (Cockcroft-Gault) 24.9 21.2 Glucose Level 112mg/dL (70-99) 118mg/dL (70-99) Calcium Level 7.8mg/dL (8.5-10.1) 8.0mg/dL (8.5-10.1) Phosphorus Level 5.9mg/dL (2.6-4.7) Magnesium Level 2.2mg/dL (1.8-2.4) Albumin 3.3g/dL (3.4-5.0) Laboratory Tests Test 01/09/17 09:15 01/09/17 21:15 01/10/17 06:00 Heparin Anti-Xa Act, Unfractionated < 0.10IU/mL (0.30-0.70) Nasal Screen MRSA (PCR) Negative (Negative) White Blood Count 10.7x10^3/uL (4.0-11.0) 13.2x10^3/uL (4.0-11.0) Red Blood Count 2.51x10^6/uL (3.50-5.40) 2.50x10^6/uL (3.50-5.40) Hemoglobin 8.0g/dL (12.0-15.5) 7.9g/dL (12.0-15.5) Hematocrit 23.9% (36.0-47.0) 23.9% (36.0-47.0) Mean Corpuscular Volume 95fL (79-100) 96fL (79-100) Mean Corpuscular Hemoglobin 32pg (25-35) 32pg (25-35) Mean Corpuscular Hemoglobin Concent 33g/dL (31-37) 33g/dL (31-37) Red Cell Distribution Width 16.6% (11.5-14.5) 16.8% (11.5-14.5) Platelet Count 382x10^3/uL (140-400) 431x10^3/uL (140-400) Neutrophils (%) (Auto) 19% (31-73) 21% (31-73) Lymphocytes (%) (Auto) 6% (24-48) 5% (24-48) Monocytes (%) (Auto) 75% (0-9) 73% (0-9) Eosinophils (%) (Auto) 0% (0-3) 0% (0-3) Basophils (%) (Auto) 0% (0-3) 0% (0-3) Neutrophils # (Auto) 2.0x10^3uL (1.8-7.7) 2.8x10^3uL (1.8-7.7) Lymphocytes # (Auto) 0.7x10^3/uL (1.0-4.8) 0.7x10^3/uL (1.0-4.8) Monocytes # (Auto) 8.0x10^3/uL (0.0-1.1) 9.6x10^3/uL (0.0-1.1) Eosinophils # (Auto) 0.0x10^3/uL (0.0-0.7) 0.0x10^3/uL (0.0-0.7) Basophils # (Auto) 0.0x10^3/uL (0.0-0.2) 0.0x10^3/uL (0.0-0.2) Segmented Neutrophils % 20% (35-66) Band Neutrophils % 4% (0-9) Lymphocytes % 6% (24-48) Monocytes % 65% (0-10) Metamyelocytes % 3% (0-0) Myelocytes % 2% (0-0) Platelet Estimate Adequate (ADEQUATE) Polychromasia Present Poikilocytosis Slight Anisocytosis Slight Ovalocytes Few Schistocytes Occ Prothrombin Time 22.3SEC (11.7-14.0) Prothromb Time International Ratio 2.1 (0.8-1.1) Sodium Level 138mmol/L (136-145) 137mmol/L (136-145) Potassium Level 4.6mmol/L (3.5-5.1) 4.6mmol/L (3.5-5.1) Chloride Level 103mmol/L (98-107) 103mmol/L (98-107) Carbon Dioxide Level 25mmol/L (21-32) 24mmol/L (21-32) Anion Gap 10 (6-14) 10 (6-14) Blood Urea Nitrogen 23mg/dL (7-20) 25mg/dL (7-20) Creatinine 2.0mg/dL (0.6-1.0) 2.3mg/dL (0.6-1.0) Estimated GFR (Cockcroft-Gault) 24.9 21.2 Glucose Level 112mg/dL (70-99) 118mg/dL (70-99) Calcium Level 7.8mg/dL (8.5-10.1) 8.0mg/dL (8.5-10.1) Phosphorus Level 5.9mg/dL (2.6-4.7) Magnesium Level 2.2mg/dL (1.8-2.4) Albumin 3.3g/dL (3.4-5.0) Microbiology 12/27/16 Blood Culture - Final, Complete NO GROWTH AFTER 5 DAYS 12/31/16 Urine Culture - Final, Complete 12/31/16 Urine Culture Result 1 (MANE) - Final, Complete Medications Current Medications Acetaminophen (Tylenol) 650 mg 1X ONCE PO Last administered on 12/27/16 09:11 ; Start 12/27/16 at 08:15; Stop 12/27/16 at 08:22; Status DC Diphenhydramine HCl (Benadryl) 25 mg 1X ONCE PO Last administered on 09:12; Start 12/27/16 at 08:15; Stop 12/27/16 at 08:22; Status DC Furosemide (Lasix) 20 mg 1X ONCE IVP ; Start 12/27/16 at 08:15; Stop 12/27/16 at 08:22; Status DC Fentanyl Citrate (Fentanyl 2ml Vial) 25 mcg PRN QID PRN IV PAIN; Start at 16:45; Stop 12/29/16 at 21:00; Status DC Lisinopril (Prinivil) 10 mg DAILY PO ; Start 12/28/16 at 09:00; Stop 12/28/16 at 09:00; Status DC Oxycodone/ Acetaminophen (Percocet 5/325) 1 tab Q4HRS PRN PO MILD/MODERATE PAIN Last administered on 01/09/17 01:27; Start 12/27/16 at 16:45 Gabapentin (Neurontin) 300 mg TID PO Last administered on 12/28/16 10:44; Start 12/27/16 at 21:00; Stop 12/28/16 at 15:23; Status DC Cetirizine HCl (Zyrtec) 10 mg PRN DAILY PRN PO ALLERGIES; Start 12/28/16 at 09: 00 Pantoprazole Sodium (Protonix) 40 mg DAILYAC PO Last administered on 01/10/17 08:21; Start 12/28/16 at 07:30 Oxycodone/ Acetaminophen 2 tab 2 tab Q4HRS PRN PO SEVERE PAIN Last administered on 01/09/17 22:54; Start 12/27/16 at 16:45 Sodium Chloride (Iv Sodium Chloride 0.9% 1000ml Bag) 1,000 ml @ 75 mls/hr [id number] IV Last administered on 12/28/16 07:12; Start 12/27/16 at 17:30; Stop 12/28/16 at 08:15; Status DC Piperacillin Sod/ Tazobactam Sod (Zosyn Per Pharmacy) 1 each PRN DAILY PRN MC SEE COMMENTS; Start 12/27/16 at 17:30; Stop 12/28/16 at 07:27; Status DC Vancomycin HCl 1 each 1 each PRN DAILY PRN MC SEE COMMENTS Last administered on 12/27/16 18:45; Start 12/27/16 at 17:30; Stop 12/27/16 at 18:51; Status DC Vancomycin HCl 2 gm/Sodium Chloride 500 ml @ 250 mls/hr 1X ONCE IV ; Start at 17:45; Stop 12/27/16 at 18:51; Status DC Piperacillin Sod/ Tazobactam Sod 3.375 gm/Sodium Chloride 50 ml @ 100 mls/hr 1X ONCE IV Last administered on 12/27/16 18:07; Start 12/27/16 at 18:00; Stop 12/27/16 at 18:29; Status DC Piperacillin Sod/ Tazobactam Sod 2.25 gm/Sodium Chloride 50 ml @ 100 mls/hr Q6HRS IV Last administered on 12/28/16 06:08; Start 12/28/16 at 00:00; Stop at 07:31; Status DC Vancomycin HCl 1.5 gm/Sodium Chloride 500 ml @ 250 mls/hr Q48H IV ; Start 12/29 at 20:00; Stop 12/29/16 at 20:00; Status DC Micafungin Sodium 100 mg/Dextrose 100 ml @ 100 mls/hr Q24H IV Last administered on 12/31/16 09:13; Start 12/28/16 at 08:00; Stop 12/31/16 at 10:43 ; Status DC Linezolid 300 ml @ 300 mls/hr Q12HR IV Last administered on 12/31/16 09:13; Start 12/28/16 at 09:00; Stop 12/31/16 at 10:43; Status DC Piperacillin Sod/ Tazobactam Sod 2.25 gm/Sodium Chloride 50 ml @ 100 mls/hr Q8HRS IV Last administered on 01/03/17 06:04; Start 12/28/16 at 14:00; Stop at 13:01; Status DC Calcium Chloride 2000 mg/Sodium Chloride 120 ml @ 240 mls/hr 1X ONCE IV Last administered on 12/28/16 08:54; Start 12/28/16 at 08:00; Stop 12/28/16 at 08:29 ; Status DC Magnesium Sulfate/ Dextrose (Magnesium Sulfate PREMIX 2GM) 50 ml @ 25 mls/hr PRN DAILY PRN IV for Mag < 1.7 on am labs Last administered on 01/04/17 09:50 ; Start 12/28/16 at 08:15; Stop 01/06/17 at 11:48; Status DC Sodium Bicarbonate 50 meq 50 meq Q2H IV Last administered on 12/28/16 15:33; Start 12/28/16 at 08:30; Stop 12/28/16 at 10:31; Status DC Sodium Chloride 500 ml @ 0 mls/hr PRN QID PRN IV UO< 30cc/hr over previous 6hrs ; Start 12/28/16 at 08:15; Stop 01/03/17 at 18:34; Status DC Sodium Bicarbonate/ Dextrose 1,150 ml @ 100 mls/hr [id number] IV Last administered on 12/30/16 06:08; Start 12/28/16 at 09:00; Stop 12/30/16 at 08:59 ; Status DC Heparin Sodium (Porcine) (Heparin Sodium) 10,000 unit STK-MED ONCE .ROUTE ; Start 12/28/16 at 08:46; Stop 12/28/16 at 08:47; Status DC Lidocaine/Sodium Bicarbonate 20 ml 20 ml STK-MED ONCE IJ ; Start 12/28/16 at 08: 47; Stop 12/28/16 at 08:48; Status DC Heparin Sodium/ Sodium Chloride 500 ml @ As Directed STK-MED ONCE .ROUTE ; Start 12/28/16 at 08:47; Stop 12/28/16 at 08:48; Status DC Lidocaine/Sodium Bicarbonate (Buffered Lidocaine 1%) 3 ml 1X ONCE IJ Last administered on 12/28/16 10:10; Start 12/28/16 at 09:00; Stop 12/28/16 at 09:01 ; Status DC Heparin Sodium/ Sodium Chloride 60 unit 1X ONCE IV Last administered on 10:11; Start 12/28/16 at 09:00; Stop 12/28/16 at 09:01; Status DC Heparin Sodium (Porcine) (Heparin Sodium) 2,500 unit 1X ONCE INT CAT Last administered on 12/28/16 10:10; Start 12/28/16 at 09:00; Stop 12/28/16 at 09:01 ; Status DC Midazolam HCl (Versed) 2 mg STK-MED ONCE .ROUTE ; Start 12/28/16 at 09:41; Stop 12/28/16 at 09:42; Status DC Saliva Substitute (Biotene Moisturizing Mouth) 2 spray PRN Q15MIN PRN PO DRY MOUTH Last administered on 12/31/16 17:53; Start 12/28/16 at 13:15 Gabapentin (Neurontin) 300 mg DAILY PO Last administered on 01/03/17 09:06; Start 12/29/16 at 09:00; Stop 01/03/17 at 18:21; Status DC Acetaminophen (Tylenol) 650 mg PRN Q6HRS PRN PO MILD PAIN Last administered on 01/08/17 03:23; Start 12/28/16 at 18:15 Ondansetron HCl (Zofran) 4 mg PRN Q6HRS PRN IV NAUSEA/VOMITING Last administered on 12/29/16 11:10; Start 12/29/16 at 10:45; Stop 12/29/16 at 13:53 ; Status DC Ondansetron HCl (Zofran) 8 mg PRN Q8HRS PRN IV NAUSEA/VOMITING Last administered on 12/31/16 03:35; Start 12/29/16 at 14:00; Stop 12/31/16 at 09:03 ; Status DC Prochlorperazine Edisylate 10 mg 10 mg 1X ONCE IV Last administered on 14:00; Start 12/29/16 at 14:00; Stop 12/29/16 at 14:01; Status DC Sodium Chloride 500 ml @ 500 mls/hr 1X ONCE IV Last administered on 23:20; Start 12/29/16 at 23:30; Stop 12/30/16 at 00:29; Status DC Sodium Chloride 500 ml @ 500 mls/hr 1X ONCE IV Last administered on 00:05; Start 12/30/16 at 00:00; Stop 12/30/16 at 00:59; Status DC Sodium Chloride 1,000 ml @ 1,000 mls/hr Q1H PRN IV hypotension; Start 12/30/16 at 08:03; Stop 12/30/16 at 14:02; Status DC Albumin Human (Albuminar) 200 ml @ 200 mls/hr 1X PRN PRN IV Hypotension Last administered on 12/30/16 09:22; Start 12/30/16 at 08:15; Stop 12/30/16 at 14:14 ; Status DC Sodium Chloride (Normal Saline Flush) 10 ml 1X PRN PRN IV AP catheter pack; Start 12/30/16 at 08:15; Stop 12/31/16 at 08:14; Status DC Sodium Chloride (Normal Saline Flush) 10 ml 1X PRN PRN IV [employer] DISTANCE [employer]ING [employer] catheter pack; Start 12/30/16 at 08:15; Stop 12/31/16 at 08:14; Status DC Info (PHARMACY MONITORING -- do not chart) 1 each PRN DAILY PRN MC SEE COMMENTS ; Start 12/30/16 at 08:15; Stop 01/08/17 at 12:44; Status DC Info (PHARMACY MONITORING -- do not chart) 1 each PRN DAILY PRN MC SEE COMMENTS ; Start 12/30/16 at 08:15; Status UNV Paricalcitol (Zemplar) 5 mcg 3X/WEEK IV Last administered on 01/03/17 09:06; Start 12/31/16 at 09:00; Stop 01/04/17 at 11:03; Status DC Calcium Acetate 1334 mg 1,334 mg [id number] PO Last administered on 01/04/17 09 :46; Start 12/30/16 at 12:00; Stop 01/04/17 at 11:03; Status DC Albumin Human (Plasmanate) 500 ml @ 120 mls/hr Q4HRS IV Last administered on 16:45; Start 12/30/16 at 12:00; Stop 12/30/16 at 19:59; Status DC Ondansetron HCl (Zofran) 8 mg PRN Q6HRS PRN IV NAUSEA/VOMITING, 2ND CHOICE Last administered on 01/03/17 08:59; Start 12/31/16 at 08:58 Lorazepam (Ativan) 0.5 mg PRN Q4HRS PRN IV ANXIETY / AGITATION Last administered on 01/08/17 12:50; Start 12/31/16 at 09:00 Prochlorperazine Edisylate (Compazine) 10 mg PRN Q6HRS PRN IM NAUSEA/VOMITING Last administered on 12/31/16 09:15; Start 12/31/16 at 09:00; Stop 01/01/17 at 11:48; Status DC Metoclopramide HCl 5 mg 5 mg PRN Q6HRS PRN IV NAUSEA/VOMITING, 1ST CHOICE Last administered on 01/01/17 09:42; Start 12/31/16 at 11:45 Magnesium Sulfate/ Dextrose 50 ml @ 25 mls/hr 1X ONCE IV Last administered on 12/31/16 17:54; Start 12/31/16 at 15:00; Stop 12/31/16 at 16:59; Status DC Albumin Human (Plasmanate) 500 ml @ 75 mls/hr Q6H40M IV Last administered on 03:44; Start 12/31/16 at 15:15; Stop 01/01/17 at 11:14; Status DC Prochlorperazine Edisylate (Compazine) 10 mg PRN Q6HRS PRN IV NAUSEA/VOMITING, 3RD CHOICE Last administered on 01/01/17 17:38; Start 01/01/17 at 11:45 Potassium Chloride (Klor-Con) 40 meq 1X ONCE PO Last administered on 13:02; Start 01/01/17 at 12:00; Stop 01/01/17 at 12:01; Status DC Furosemide (Lasix) 40 mg 1X ONCE IVP Last administered on 01/01/17 14:24; Start 01/01/17 at 14:00; Stop 01/01/17 at 14:01; Status DC Albuterol/ Ipratropium (Duoneb) 3 ml PRN Q6HRS PRN NEB SHORTNESS OF BREATH Last administered on 01/05/17 11:26; Start 01/01/17 at 13:45; Stop 01/05/17 at 22:40; Status DC Furosemide (Lasix) 40 mg 1X ONCE IVP Last administered on 01/02/17 11:43; Start 01/02/17 at 10:45; Stop 01/02/17 at 10:46; Status DC Potassium Chloride 40 meq 40 meq 1X ONCE PO Last administered on 01/02/17 13: 21; Start 01/02/17 at 13:15; Stop 01/02/17 at 13:16; Status DC Heparin Sodium/ Dextrose 500 ml @ 0 mls/hr CONT PRN IV SEE I/O RECORD Last administered on 01/08/17 13:35; Start 01/02/17 at 14:45; Stop 01/08/17 at 15:48 ; Status DC Heparin Sodium (Porcine) (Heparin Sodium) 3,150 unit PRN Q6HRS PRN IV FOR UFH LEVEL LESS THAN 0.2; Start 01/02/17 at 14:45; Stop 01/08/17 at 15:48; Status DC Heparin Sodium (Porcine) (Heparin Sodium) 1,550 unit PRN Q6HRS PRN IV FOR UFH LEVEL 0.2 - 0.29; Start 01/02/17 at 14:45; Stop 01/08/17 at 15:48; Status DC Warfarin Sodium (Coumadin Per Pharmacy) 1 each PRN DAILY PRN MC PER PROTOCOL Last administered on 01/03/17 11:34; Start 01/02/17 at 14:45; Stop 01/03/17 at 23:01; Status DC Warfarin Sodium (Coumadin) 5 mg 1X WARF ONCE PO Last administered on 17:41; Start 01/02/17 at 16:00; Stop 01/02/17 at 16:01; Status DC Warfarin Sodium (Coumadin - No Dose Today) 1 each 1X WARF ONCE MC ; Start 01/03 at 16:00; Stop 01/03/17 at 23:01; Status DC Cefpodoxime Proxetil (Vantin) 200 mg BID PO Last administered on 01/05/17 08: 53; Start 01/03/17 at 21:00; Stop 01/05/17 at 09:37; Status DC Cyanocobalamin (Vitamin B-12) 1,000 mcg QMONTH IM Last administered on 09:49; Start 01/04/17 at 09:00 Gabapentin 900 mg 900 mg TID PO Last administered on 01/10/17 08:21; Start at 21:00 Sodium Chloride (Iv Sodium Chloride 0.9% 1000ml Bag) 1,000 ml @ 75 mls/hr [id number] IV Last administered on 01/04/17 09:46; Start 01/03/17 at 18:45; Stop 01/04/17 at 11:04; Status DC Potassium Chloride 20 meq 20 meq 1X ONCE PO Last administered on 01/03/17 18: 56; Start 01/03/17 at 18:45; Stop 01/03/17 at 18:46; Status DC Magnesium Sulfate/ Dextrose 50 ml @ 25 mls/hr PRN DAILY PRN IV for Mag < 1.7 on am labs; Start 01/04/17 at 10:45; Status UNV Potassium Chloride 50 ml @ 50 mls/hr PRN Q6HRS PRN IV For K < 3.7 Last administered on 01/05/17 13:10; Start 01/04/17 at 10:45 Potassium Chloride 50 ml @ 50 mls/hr PRN Q2HR PRN IV total of 40mEq for K < 3.5 Last administered on 01/04/17 13:46; Start 01/04/17 at 10:45 Albumin Human (Albuminar) 100 ml @ 100 mls/hr TID IV Last administered on 01/06 08:53; Start 01/04/17 at 14:00; Stop 01/06/17 at 09:59; Status DC Warfarin Sodium (Coumadin) 4 mg DAILY16 PO Last administered on 01/08/17 17:15 ; Start 01/04/17 at 17:00; Stop 01/09/17 at 08:15; Status DC Warfarin Sodium 1 each 1 each PRN DAILY PRN MC SEE COMMENTS Last administered on 01/08/17 12:40; Start 01/04/17 at 17:00 Magnesium Sulfate/ Dextrose 100 ml @ 100 mls/hr 1X ONCE IV Last administered on 01/05/17 11:35; Start 01/05/17 at 11:00; Stop 01/05/17 at 11:59; Status DC Magnesium Sulfate/ Dextrose 50 ml @ 25 mls/hr PRN DAILY PRN IV for Mag < 1.7 on am labs Last administered on 01/08/17 09:27; Start 01/05/17 at 11:00 Potassium Chloride (KCl Premix 20meq) 50 ml @ 25 mls/hr Q2HR IV Last administered on 01/05/17 23:42; Start 01/05/17 at 16:00; Stop 01/05/17 at 19:59 ; Status DC Iohexol (Omnipaque 300 Mg/ml) 60 ml 1X ONCE IV ; Start 01/05/17 at 16:15; Stop 01/05/17 at 16:16; Status DC Iohexol (Omnipaque 240 Mg/ml) 30 ml 1X ONCE PO Last administered on 01/05/17 15:45; Start 01/05/17 at 16:15; Stop 01/05/17 at 16:16; Status DC Info (Do NOT chart on this entry -- for MONITORING) 1 each PRN DAILY PRN MC SEE COMMENTS; Start 01/05/17 at 16:15; Stop 01/07/17 at 16:14; Status DC Albuterol/ Ipratropium (Duoneb) 3 ml RTQID NEB Last administered on 01/10/17 07 :59; Start 01/05/17 at 20:00 Budesonide (Pulmicort) 0.5 mg RTBID NEB Last administered on 01/10/17 08:00; Start 01/05/17 at 20:00 Furosemide (Lasix) 20 mg 1X ONCE IVP Last administered on 01/05/17 22:04; Start 01/05/17 at 22:00; Stop 01/05/17 at 22:01; Status DC Albuterol Sulfate (Ventolin Neb Soln) 2.5 mg PRN Q6HRS PRN NEB SHORTNESS OF BREATH Last administered on 01/08/17 03:37; Start 01/05/17 at 22:40 Furosemide (Lasix) 40 mg 1X ONCE IVP Last administered on 01/07/17 11:50; Start 01/07/17 at 11:30; Stop 01/07/17 at 11:31; Status DC Furosemide 40 mg 40 mg DAILY IVP Last administered on 01/10/17 08:21; Start at 09:00 Albumin Human (Albuminar) 100 ml @ 100 mls/hr DAILY IV Last administered on 08:22; Start 01/08/17 at 17:00; Stop 01/10/17 at 16:59 Tramadol HCl (Ultram) 50 mg PRN Q6HRS PRN PO MODERATE PAIN Last administered on 01/08/17 22:28; Start 01/08/17 at 22:15 Phytonadione (Vitamin K) 10 mg 1X ONCE SQ ; Start 01/10/17 at 09:15; Stop at 09:16; Status UNV Active Scripts Active Reported Gabapentin 300 Mg Capsule 900 Mg PO TID Claritin (Loratadine) 10 Mg Tablet 1 Tab PO DAILY PRN Bactrim 400-80 Mg Tablet (Sulfamethoxazole/Trimethoprim) 1 Each Tablet 1 Tab PO BID Gabapentin 300 Mg Capsule 300 Mg PO TID Zestril (Lisinopril) 10 Mg Tablet 10 Mg PO DAILY Cyanocobalamin Injection (Cyanocobalamin (Vitamin B-12)) 1,000 Mcg/1 Ml Vial 1, 000 Mcg QMONTH Percocet 5-325 Mg Tablet (Oxycodone/Acetaminophen) 1 Each Tablet 1-2 Tab PO Q4- 6HRS Prilosec Otc (Omeprazole Magnesium) 20 Mg Tablet.dr 20 Mg PO DAILY Vitals/I & O Vital Sign - Last 24 Hours 01/09/17 01/09/17 01/09/17 01/09/17 10:00 11:00 12:00 12:00 Temp 97.8 97.8 Pulse 96 97 94 Resp 08 23 16 B/P 94/62 81/71 76/58 Pulse Ox 98 98 99 O2 Delivery Nasal Cannula Nasal Cannula Nasal Cannula Nasal Cannula O2 Flow Rate 4.0 4.0 4.0 4.0 01/09/17 01/09/17 01/09/17 01/09/17 13:00 13:03 14:00 14:00 Temp 97.8 97.8 Pulse 98 100 100 Resp 31 08 20 B/P 108/62 87/52 87/52 Pulse Ox 96 100 96 O2 Delivery Nasal Cannula Nasal Cannula Nasal Cannula O2 Flow Rate 4.0 3.0 4.0 01/09/17 01/09/17 01/09/17 01/09/17 14:15 15:00 15:00 16:00 Temp 97.9 97.8 97.8 97.9 97.8 97.8 Pulse 100 102 102 103 Resp B/P 100/58 148/99 148/99 93/57 Pulse Ox 94 94 O2 Delivery Nasal Cannula Nasal Cannula O2 Flow Rate 4.0 4.0 01/09/17 01/09/17 01/09/17 01/09/17 16:00 16:00 16:47 17:00 Temp 97.8 97.8 Pulse 100 102 Resp B/P 99/65 96/52 Pulse Ox 96 94 O2 Delivery Nasal Cannula Nasal Cannula Nasal Cannula O2 Flow Rate 4.0 3.0 4.0 01/09/17 01/09/17 01/09/17 01/09/17 18:00 18:00 18:22 19:00 Temp 97.8 98.7 97.9 97.8 98.7 97.9 Pulse 103 104 104 106 Resp B/P 93/57 114/60 82/64 90/67 Pulse Ox 94 95 O2 Delivery Nasal Cannula Nasal Cannula O2 Flow Rate 4.0 4.0 01/09/17 01/09/17 01/09/1717 19:38 20:00 20:00 21:00 Pulse 104 104 Resp B/P 96/60 92/64 Pulse Ox 95 95 96 O2 Delivery Nasal Cannula Nasal Cannula Nasal Cannula Nasal Cannula O2 Flow Rate 3.0 4.0 4.0 4.0 01/09/17 01/09/17 01/09/17 01/09/17 22:00 22:54 23:00 23:54 Pulse 107 110 Resp B/P 122/69 117/69 Pulse Ox 94 94 O2 Delivery Nasal Cannula Nasal Cannula Nasal Cannula Nasal Cannula O2 Flow Rate 4.0 4.0 3.0 01/09/17 01/10/17 01/10/17 01/10/17 23:59 00:00 01:00 02:00 Temp 97.9 97.9 Pulse 107 103 104 Resp 18 B/P 96/59 117/71 112/67 Pulse Ox 94 94 94 O2 Delivery Nasal Cannula Nasal Cannula Nasal Cannula Nasal Cannula O2 Flow Rate 3.0 3.0 4.0 4.0 01/10/17 01/10/17 01/10/17 01/10/17 03:00 04:00 04:00 05:00 Temp 98.0 98.0 Pulse 100 102 103 Resp 18 B/P 110/60 110/53 109/61 Pulse Ox 94 95 94 O2 Delivery Nasal Cannula Nasal Cannula Nasal Cannula Nasal Cannula O2 Flow Rate 4.0 4.0 3.0 4.0 01/10/17 01/10/17 01/10/17 06:00 07:15 08:00 Temp 98.2 98.2 Pulse 102 105 Resp 16 B/P 117/60 137/65 Pulse Ox 94 92 94 O2 Delivery Nasal Cannula Nasal Cannula Nasal Cannula O2 Flow Rate 4.0 4.0 3.0 Intake and Output 01/09/17 01/09/17 01/10/17 15:00 23:00 07:00 Intake Total 100 ml 355 ml 400 ml Output Total 55 ml 10 ml Balance 100 ml 300 ml 390 ml LETICIA TREVINO MD January 10, 2017 09:16
[2017-01-10] MEDS ORDERED: HEPARIN for IV BOLUS 10,000 UNIT/10 ML VIAL. ONE (10:39)
[2017-01-10] MEDS ORDERED: LIDOCAINE 1% / SOD BICARB 8.4% 20 ML VIAL. IJ ONE ×2 (10:39→12:30)
--- NOTE | 2017-01-10 11:06 | PDOC ---
PULMONARY PROGRESS NOTES Subjective LESS SOA lots of pain related to hematoma Vitals Vital Signs Date Time Temp Pulse Resp B/P Pulse Ox O2 Delivery O2 Flow Rate FiO2 01/10/17 10:00 98 18 155/58 Nasal Cannula 4.0 01/10/17 09:00 97 01/10/17 07:15 98.2 98.2 General: Alert, No acute distress HEENT: Other Lungs: Other (decrease bs) Cardiovascular: S1, S2 Abdomen: Soft, Non-tender, Other (he) Neuro Exam: Alert Extremities: Other (2 EDEMA) Skin: Warm Labs Laboratory Tests Test 01/08/17 12:30 01/09/17 05:20 01/09/17 06:15 01/09/17 09:15 Heparin Anti-Xa Act, Unfractionated 0.84IU/mL (0.30-0.70) < 0.10IU/mL (0.30-0.70) Sodium Level 138mmol/L (136-145) 138mmol/L (136-145) Potassium Level 4.6mmol/L (3.5-5.1) 4.5mmol/L (3.5-5.1) Chloride Level 103mmol/L (98-107) 104mmol/L (98-107) Carbon Dioxide Level 25mmol/L (21-32) 25mmol/L (21-32) Anion Gap 10 (6-14) 9 (6-14) Blood Urea Nitrogen 17mg/dL (7-20) 17mg/dL (7-20) Creatinine 1.5mg/dL (0.6-1.0) 1.6mg/dL (0.6-1.0) Estimated GFR (Cockcroft-Gault) 34.6 32.2 Glucose Level 135mg/dL (70-99) 136mg/dL (70-99) Calcium Level 7.7mg/dL (8.5-10.1) 7.6mg/dL (8.5-10.1) Phosphorus Level 5.7mg/dL (2.6-4.7) Albumin 3.0g/dL (3.4-5.0) White Blood Count 6.0x10^3/uL (4.0-11.0) Red Blood Count 1.97x10^6/uL (3.50-5.40) Hemoglobin 6.3g/dL (12.0-15.5) Hematocrit 19.0% (36.0-47.0) Mean Corpuscular Volume 96fL (79-100) Mean Corpuscular Hemoglobin 32pg (25-35) Mean Corpuscular Hemoglobin Concent 34g/dL (31-37) Red Cell Distribution Width 17.2% (11.5-14.5) Platelet Count 287x10^3/uL (140-400) Neutrophils (%) (Auto) 30% (31-73) Lymphocytes (%) (Auto) 7% (24-48) Monocytes (%) (Auto) 64% (0-9) Eosinophils (%) (Auto) 0% (0-3) Basophils (%) (Auto) 0% (0-3) Neutrophils # (Auto) 1.8x10^3uL (1.8-7.7) Lymphocytes # (Auto) 0.4x10^3/uL (1.0-4.8) Monocytes # (Auto) 3.9x10^3/uL (0.0-1.1) Eosinophils # (Auto) 0.0x10^3/uL (0.0-0.7) Basophils # (Auto) 0.0x10^3/uL (0.0-0.2) Prothrombin Time 20.5SEC (11.7-14.0) Prothromb Time International Ratio 1.9 (0.8-1.1) Magnesium Level 2.0mg/dL (1.8-2.4) Nasal Screen MRSA (PCR) Negative (Negative) Test 01/09/17 21:15 01/10/17 06:00 White Blood Count 10.7x10^3/uL (4.0-11.0) 13.2x10^3/uL (4.0-11.0) Red Blood Count 2.51x10^6/uL (3.50-5.40) 2.50x10^6/uL (3.50-5.40) Hemoglobin 8.0g/dL (12.0-15.5) 7.9g/dL (12.0-15.5) Hematocrit 23.9% (36.0-47.0) 23.9% (36.0-47.0) Mean Corpuscular Volume 95fL (79-100) 96fL (79-100) Mean Corpuscular Hemoglobin 32pg (25-35) 32pg (25-35) Mean Corpuscular Hemoglobin Concent 33g/dL (31-37) 33g/dL (31-37) Red Cell Distribution Width 16.6% (11.5-14.5) 16.8% (11.5-14.5) Platelet Count 382x10^3/uL (140-400) 431x10^3/uL (140-400) Neutrophils (%) (Auto) 19% (31-73) 21% (31-73) Lymphocytes (%) (Auto) 6% (24-48) 5% (24-48) Monocytes (%) (Auto) 75% (0-9) 73% (0-9) Eosinophils (%) (Auto) 0% (0-3) 0% (0-3) Basophils (%) (Auto) 0% (0-3) 0% (0-3) Neutrophils # (Auto) 2.0x10^3uL (1.8-7.7) 2.8x10^3uL (1.8-7.7) Lymphocytes # (Auto) 0.7x10^3/uL (1.0-4.8) 0.7x10^3/uL (1.0-4.8) Monocytes # (Auto) 8.0x10^3/uL (0.0-1.1) 9.6x10^3/uL (0.0-1.1) Eosinophils # (Auto) 0.0x10^3/uL (0.0-0.7) 0.0x10^3/uL (0.0-0.7) Basophils # (Auto) 0.0x10^3/uL (0.0-0.2) 0.0x10^3/uL (0.0-0.2) Segmented Neutrophils % 20% (35-66) Band Neutrophils % 4% (0-9) Lymphocytes % 6% (24-48) Monocytes % 65% (0-10) Metamyelocytes % 3% (0-0) Myelocytes % 2% (0-0) Platelet Estimate Adequate (ADEQUATE) Polychromasia Present Poikilocytosis Slight Anisocytosis Slight Ovalocytes Few Schistocytes Occ Prothrombin Time 22.3SEC (11.7-14.0) Prothromb Time International Ratio 2.1 (0.8-1.1) Sodium Level 138mmol/L (136-145) 137mmol/L (136-145) Potassium Level 4.6mmol/L (3.5-5.1) 4.6mmol/L (3.5-5.1) Chloride Level 103mmol/L (98-107) 103mmol/L (98-107) Carbon Dioxide Level 25mmol/L (21-32) 24mmol/L (21-32) Anion Gap 10 (6-14) 10 (6-14) Blood Urea Nitrogen 23mg/dL (7-20) 25mg/dL (7-20) Creatinine 2.0mg/dL (0.6-1.0) 2.3mg/dL (0.6-1.0) Estimated GFR (Cockcroft-Gault) 24.9 21.2 Glucose Level 112mg/dL (70-99) 118mg/dL (70-99) Calcium Level 7.8mg/dL (8.5-10.1) 8.0mg/dL (8.5-10.1) Phosphorus Level 5.9mg/dL (2.6-4.7) Magnesium Level 2.2mg/dL (1.8-2.4) Albumin 3.3g/dL (3.4-5.0) Laboratory Tests Test 01/09/17 21:15 01/10/17 06:00 White Blood Count 10.7x10^3/uL (4.0-11.0) 13.2x10^3/uL (4.0-11.0) Red Blood Count 2.51x10^6/uL (3.50-5.40) 2.50x10^6/uL (3.50-5.40) Hemoglobin 8.0g/dL (12.0-15.5) 7.9g/dL (12.0-15.5) Hematocrit 23.9% (36.0-47.0) 23.9% (36.0-47.0) Mean Corpuscular Volume 95fL (79-100) 96fL (79-100) Mean Corpuscular Hemoglobin 32pg (25-35) 32pg (25-35) Mean Corpuscular Hemoglobin Concent 33g/dL (31-37) 33g/dL (31-37) Red Cell Distribution Width 16.6% (11.5-14.5) 16.8% (11.5-14.5) Platelet Count 382x10^3/uL (140-400) 431x10^3/uL (140-400) Neutrophils (%) (Auto) 19% (31-73) 21% (31-73) Lymphocytes (%) (Auto) 6% (24-48) 5% (24-48) Monocytes (%) (Auto) 75% (0-9) 73% (0-9) Eosinophils (%) (Auto) 0% (0-3) 0% (0-3) Basophils (%) (Auto) 0% (0-3) 0% (0-3) Neutrophils # (Auto) 2.0x10^3uL (1.8-7.7) 2.8x10^3uL (1.8-7.7) Lymphocytes # (Auto) 0.7x10^3/uL (1.0-4.8) 0.7x10^3/uL (1.0-4.8) Monocytes # (Auto) 8.0x10^3/uL (0.0-1.1) 9.6x10^3/uL (0.0-1.1) Eosinophils # (Auto) 0.0x10^3/uL (0.0-0.7) 0.0x10^3/uL (0.0-0.7) Basophils # (Auto) 0.0x10^3/uL (0.0-0.2) 0.0x10^3/uL (0.0-0.2) Segmented Neutrophils % 20% (35-66) Band Neutrophils % 4% (0-9) Lymphocytes % 6% (24-48) Monocytes % 65% (0-10) Metamyelocytes % 3% (0-0) Myelocytes % 2% (0-0) Platelet Estimate Adequate (ADEQUATE) Polychromasia Present Poikilocytosis Slight Anisocytosis Slight Ovalocytes Few Schistocytes Occ Prothrombin Time 22.3SEC (11.7-14.0) Prothromb Time International Ratio 2.1 (0.8-1.1) Sodium Level 138mmol/L (136-145) 137mmol/L (136-145) Potassium Level 4.6mmol/L (3.5-5.1) 4.6mmol/L (3.5-5.1) Chloride Level 103mmol/L (98-107) 103mmol/L (98-107) Carbon Dioxide Level 25mmol/L (21-32) 24mmol/L (21-32) Anion Gap 10 (6-14) 10 (6-14) Blood Urea Nitrogen 23mg/dL (7-20) 25mg/dL (7-20) Creatinine 2.0mg/dL (0.6-1.0) 2.3mg/dL (0.6-1.0) Estimated GFR (Cockcroft-Gault) 24.9 21.2 Glucose Level 112mg/dL (70-99) 118mg/dL (70-99) Calcium Level 7.8mg/dL (8.5-10.1) 8.0mg/dL (8.5-10.1) Phosphorus Level 5.9mg/dL (2.6-4.7) Magnesium Level 2.2mg/dL (1.8-2.4) Albumin 3.3g/dL (3.4-5.0) Medications Active Scripts Medications Dose Route/Sig Days Date Category Gabapentin 300 Mg Capsule 900 Mg PO TID 01/03/17 Reported Claritin (Loratadine) 10 Mg Tablet 1 Tab PO DAILY PRN 11/22/16 Reported Bactrim 400-80 Mg Tablet (Sulfamethoxazole/Trimethoprim) 1 Each Tablet 1 Tab PO BID 11/22/16 Reported Gabapentin 300 Mg Capsule 300 Mg PO TID 11/22/16 Reported Zestril (Lisinopril) 10 Mg Tablet 10 Mg PO DAILY 11/22/16 Reported Cyanocobalamin Injection (Cyanocobalamin (Vitamin B-12)) 1,000 Mcg/1 Ml Vial 1,000 Mcg QMONTH 05/28/16 Reported Percocet 5-325 Mg Tablet (Oxycodone/Acetaminophen) 1 Each Tablet 1-2 Tab PO Q4-6HRS 05/28/16 Reported Prilosec Otc (Omeprazole Magnesium) 20 Mg Tablet.dr 20 Mg PO DAILY 05/28/16 Reported Impression . 1. Acute respiratory failure/distress, multifactorial, secondary to acute pulmonary edema. diastolic HF 2. Metastatic cholangiocarcinoma, status post recent chemotherapy, last received on 12/24/2016. 3. Acute renal failure, requiring hemodialysis, currently off of dialysis. 4. Acute blood loss anemia, status post transfusion. off AC 5. Right upper extremity deep venous thrombosis, diagnosed on 01/02/2017. off anticoagulation due to large retro-peritoneal bleed 6. Peripheral neuropathy. 7. Abnormal x-ray compatible with pulmonary edema. 8. Multiple other comorbidities. 9. Acute blood loss anemia Plan . REPEAT CXR MUCH IMPROVED HOLD ANTICOAGULANT TRANSFUSE PRN 1. We will continue Lasix ,monitor renal function closely 2. echocardiogram reviewed 3. improve nutritional status 4. P.r.n. nebulized treatments. 5. Continue other support 6. Correct electrolyte abnormalities. 7. p.r.n. BiPAP. d/w MIRIAN PENN MD January 10, 2017 11:06
--- NOTE | 2017-01-10 11:42 | PDOC2 ---
EDDY WHITTEN SEARCH ENGINE MARKETING MANAGER 01/10/17 1141: CARDIAC CONSULT DATE OF CONSULT Date of Consult DATE: 01/10/17 TIME: 11:25 REASON FOR CONSULT Reason for Consult: Anemia, fluid overload REFERRING PHYSICIAN Referring Physician: Luz SOURCE Source: Chart review, Patient HISTORY OF PRESENT ILLNESS HISTORY OF PRESENT ILLNESS This is a pleasant 66 yo female admitted for complains of significant weakness. At home she was not able to get up out of bed. She was so weak. No falls or any recent injury. She is known of cholangiocarcinoma stage 4, Upon admission multiple acute issues were noted including retroperitoneal hematoma, RIJ thrombus, LE cellulitis, ARTURO, and anasarca. Consult is for CHF and presently her SOA is better and denies any discomfort. She does not have hx of CHF, CAD, or arrhythmias. 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) Musculoskeletal: Osteoarthritis, Other (Leg cellulitis; DVT RUE) Rheumatologic: No pertinent hx Infectious disease: No pertinent hx ENT: No pertinent hx Renal/: Urinary Incontinence Endocrine: No pertinent hx Dermatology: No pertinent hx PAST SURGICAL HISTORY Past Surgical History: Hernia Repair, Hysterectomy, Other (gastric bypass surgery; liver surgery; portacath placement) FAMILY HISTORY Family History: Coronary Artery Disease SOCIAL HISTORY Smoke: No ALCOHOL: none Drugs: None CURRENT MEDICATIONS CURRENT MEDICATIONS Current Medications Medications (Trade) Dose Ordered Sig/Shahab Route PRN Reason Start Time Stop Time Status Last Admin Dose Admin Phytonadione (Vitamin K) 10 mg 1X ONCE SQ 01/10/17 09:15 01/10/17 09:16 DC 01/10/17 09:42 ALLERGIES ALLERGIES: Coded Allergies: No Known Drug Allergies (Unverified , 12/27/16) ROS Review of System 14 point ROS evaluated with pertinent positives noted per HPI PHYSICAL EXAM General: Alert, Oriented X3, Cooperative, No acute distress HEENT: Atraumatic, Mucous membr. moist/pink Lungs: Other (diminished) Abdomen: Soft, Other (anasarca) Extremities: No cyanosis, Other (4+ bilateral LE pitting edema) Skin: No breakdown, No significant lesion Neuro: Normal speech, Sensation intact Psych/Mental Status: Mental status NL, Mood NL MUSCULOSKELETAL: Osteoarthritic changes both hands VITALS VITALS Vital Signs Date Time Temp Pulse Resp B/P Pulse Ox O2 Delivery O2 Flow Rate FiO2 01/10/17 11:00 100 18 125/64 86 Nasal Cannula 4.0 01/10/17 07:15 98.2 98.2 LABS Lab: Laboratory Tests Test 01/09/17 21:15 01/10/17 06:00 White Blood Count 10.7x10^3/uL (4.0-11.0) 13.2x10^3/uL (4.0-11.0) Red Blood Count 2.51x10^6/uL (3.50-5.40) 2.50x10^6/uL (3.50-5.40) Hemoglobin 8.0g/dL (12.0-15.5) 7.9g/dL (12.0-15.5) Hematocrit 23.9% (36.0-47.0) 23.9% (36.0-47.0) Mean Corpuscular Volume 95fL (79-100) 96fL (79-100) Mean Corpuscular Hemoglobin 32pg (25-35) 32pg (25-35) Mean Corpuscular Hemoglobin Concent 33g/dL (31-37) 33g/dL (31-37) Red Cell Distribution Width 16.6% (11.5-14.5) 16.8% (11.5-14.5) Platelet Count 382x10^3/uL (140-400) 431x10^3/uL (140-400) Neutrophils (%) (Auto) 19% (31-73) 21% (31-73) Lymphocytes (%) (Auto) 6% (24-48) 5% (24-48) Monocytes (%) (Auto) 75% (0-9) 73% (0-9) Eosinophils (%) (Auto) 0% (0-3) 0% (0-3) Basophils (%) (Auto) 0% (0-3) 0% (0-3) Neutrophils # (Auto) 2.0x10^3uL (1.8-7.7) 2.8x10^3uL (1.8-7.7) Lymphocytes # (Auto) 0.7x10^3/uL (1.0-4.8) 0.7x10^3/uL (1.0-4.8) Monocytes # (Auto) 8.0x10^3/uL (0.0-1.1) 9.6x10^3/uL (0.0-1.1) Eosinophils # (Auto) 0.0x10^3/uL (0.0-0.7) 0.0x10^3/uL (0.0-0.7) Basophils # (Auto) 0.0x10^3/uL (0.0-0.2) 0.0x10^3/uL (0.0-0.2) Segmented Neutrophils % 20% (35-66) Band Neutrophils % 4% (0-9) Lymphocytes % 6% (24-48) Monocytes % 65% (0-10) Metamyelocytes % 3% (0-0) Myelocytes % 2% (0-0) Platelet Estimate Adequate (ADEQUATE) Polychromasia Present Poikilocytosis Slight Anisocytosis Slight Ovalocytes Few Schistocytes Occ Prothrombin Time 22.3SEC (11.7-14.0) Prothromb Time International Ratio 2.1 (0.8-1.1) Sodium Level 138mmol/L (136-145) 137mmol/L (136-145) Potassium Level 4.6mmol/L (3.5-5.1) 4.6mmol/L (3.5-5.1) Chloride Level 103mmol/L (98-107) 103mmol/L (98-107) Carbon Dioxide Level 25mmol/L (21-32) 24mmol/L (21-32) Anion Gap 10 (6-14) 10 (6-14) Blood Urea Nitrogen 23mg/dL (7-20) 25mg/dL (7-20) Creatinine 2.0mg/dL (0.6-1.0) 2.3mg/dL (0.6-1.0) Estimated GFR (Cockcroft-Gault) 24.9 21.2 Glucose Level 112mg/dL (70-99) 118mg/dL (70-99) Calcium Level 7.8mg/dL (8.5-10.1) 8.0mg/dL (8.5-10.1) Phosphorus Level 5.9mg/dL (2.6-4.7) Magnesium Level 2.2mg/dL (1.8-2.4) Albumin 3.3g/dL (3.4-5.0) ASSESSMENT/PLAN ASSESSMENT/PLAN 1. Acute diastolic CHF: SOA better. multifactorial mainly from extracardiac issues. Contributing vena cava syndrome?. 2. Stage 4 cholangiocarcinoma/malignancy/malnutrition: Hemonc on board 3. Anemia with notable large left retroperitoneal hematoma: general surgery on board. Hgb at 7.9 post transfusion 4. ARTURO: Discussion of HD per staff. nephrology following. Cr increasing up to 2.3. 5. Leg cellulitis with underlying anasarca 6. RIJ thrombus with Hx of PE/DVT: per PCP and vascular surgery 7. HTN: controlled Recommendations 1. Continue lasix/albumin therapy 2. Will obtain full echo 3. Supportive care. Problems: BEVERLY VALDOVINOS MD 01/10/17 2221: CARDIAC CONSULT ALLERGIES ALLERGIES: Coded Allergies: No Known Drug Allergies (Unverified , 12/27/16) ASSESSMENT/PLAN ASSESSMENT/PLAN Pt. seen and examined. Agree with above SQL PROGRAMMER ANALYST note. 66 yo woman with edema due to significant volume resuscitation 2+ edema Echo wnl Supportive care. Fluid removal per HD. Problems: EDDY WHITTEN SEARCH ENGINE MARKETING MANAGER January 10, 2017 11:41 BEVERLY VALDOVINOS MD January 10, 2017 22:21
--- NOTE | 2017-01-10 11:47 | PDOC ---
PROGRESS NOTES Chief Complaint Chief Complaint CC: Chills, feeling cold -cellulitis bilaterally lower extremities -acute renal failure -cholangiocarcinoma -hypertension -peripheral neuropathy -DVT -PE -Cholecystectomy -hysterectomy -oophorectomy -salpingectomy -UTI -anxiety -skin cancer History of Present Illness History of Present Illness Ms. Bruno was in bed and accompanied by her in the room. The pt was lethargic and slightly confused at times with trouble expressing her thoughts. She did manage to complain of some SOA and tremor in her hands. The wanted to get clarification on whether the pt can get dialysis as that helped the last time the pt was admitted. also discussed his understanding of vascular surgeon and nephrology plans. Vitals Vitals Vital Signs Date Time Temp Pulse Resp B/P Pulse Ox O2 Delivery O2 Flow Rate FiO2 01/10/17 11:00 100 18 125/64 86 Nasal Cannula 4.0 01/10/17 07:15 98.2 98.2 Physical Exam General: Alert, No acute distress, Other (slightly confused) Heart: Regular rate, Normal S1, Normal S2 Lungs: Other (decrease bs, wheezing bilaterally, on nasal cannula 4 L) Abdomen: Soft, Other (Tenderness in LUQ) Extremities: No clubbing, Normal pulses Skin: No rashes, No breakdown Labs LABS Laboratory Tests Test 01/09/17 21:15 01/10/17 06:00 White Blood Count 10.7x10^3/uL (4.0-11.0) 13.2x10^3/uL (4.0-11.0) Red Blood Count 2.51x10^6/uL (3.50-5.40) 2.50x10^6/uL (3.50-5.40) Hemoglobin 8.0g/dL (12.0-15.5) 7.9g/dL (12.0-15.5) Hematocrit 23.9% (36.0-47.0) 23.9% (36.0-47.0) Mean Corpuscular Volume 95fL (79-100) 96fL (79-100) Mean Corpuscular Hemoglobin 32pg (25-35) 32pg (25-35) Mean Corpuscular Hemoglobin Concent 33g/dL (31-37) 33g/dL (31-37) Red Cell Distribution Width 16.6% (11.5-14.5) 16.8% (11.5-14.5) Platelet Count 382x10^3/uL (140-400) 431x10^3/uL (140-400) Neutrophils (%) (Auto) 19% (31-73) 21% (31-73) Lymphocytes (%) (Auto) 6% (24-48) 5% (24-48) Monocytes (%) (Auto) 75% (0-9) 73% (0-9) Eosinophils (%) (Auto) 0% (0-3) 0% (0-3) Basophils (%) (Auto) 0% (0-3) 0% (0-3) Neutrophils # (Auto) 2.0x10^3uL (1.8-7.7) 2.8x10^3uL (1.8-7.7) Lymphocytes # (Auto) 0.7x10^3/uL (1.0-4.8) 0.7x10^3/uL (1.0-4.8) Monocytes # (Auto) 8.0x10^3/uL (0.0-1.1) 9.6x10^3/uL (0.0-1.1) Eosinophils # (Auto) 0.0x10^3/uL (0.0-0.7) 0.0x10^3/uL (0.0-0.7) Basophils # (Auto) 0.0x10^3/uL (0.0-0.2) 0.0x10^3/uL (0.0-0.2) Segmented Neutrophils % 20% (35-66) Band Neutrophils % 4% (0-9) Lymphocytes % 6% (24-48) Monocytes % 65% (0-10) Metamyelocytes % 3% (0-0) Myelocytes % 2% (0-0) Platelet Estimate Adequate (ADEQUATE) Polychromasia Present Poikilocytosis Slight Anisocytosis Slight Ovalocytes Few Schistocytes Occ Prothrombin Time 22.3SEC (11.7-14.0) Prothromb Time International Ratio 2.1 (0.8-1.1) Sodium Level 138mmol/L (136-145) 137mmol/L (136-145) Potassium Level 4.6mmol/L (3.5-5.1) 4.6mmol/L (3.5-5.1) Chloride Level 103mmol/L (98-107) 103mmol/L (98-107) Carbon Dioxide Level 25mmol/L (21-32) 24mmol/L (21-32) Anion Gap 10 (6-14) 10 (6-14) Blood Urea Nitrogen 23mg/dL (7-20) 25mg/dL (7-20) Creatinine 2.0mg/dL (0.6-1.0) 2.3mg/dL (0.6-1.0) Estimated GFR (Cockcroft-Gault) 24.9 21.2 Glucose Level 112mg/dL (70-99) 118mg/dL (70-99) Calcium Level 7.8mg/dL (8.5-10.1) 8.0mg/dL (8.5-10.1) Phosphorus Level 5.9mg/dL (2.6-4.7) Magnesium Level 2.2mg/dL (1.8-2.4) Albumin 3.3g/dL (3.4-5.0) Review of Systems Review of Systems Denies chest pain Denies N/V/D Denies leg pains or swelling Assessment and Plan Assessmemt and Plan Problems Medical Problems: (1) Cellulitis Status: Acute Assessment CC: Chills, feeling cold -cellulitis bilaterally lower extremities -acute renal failure -cholangiocarcinoma -hypertension -peripheral neuropathy -DVT -PE -Cholecystectomy -hysterectomy -oophorectomy -salpingectomy -UTI -anxiety -skin cancer 1. Cardiothoracic surgery recs appreciated - no surgery indicated 2. Stop anticoagulation, give vit. K to stop bleeding into hematoma 3. Ordering coagulation studies 4. Recheck labs 5. PT/OT 6. Continue breathing treatments 7. Continue albumin and furosemide for edema 8. Continue home medications 9. Continue pain and sedative management 10. Appreciate subspecialists' consultation 11. Dialysis ok per nephrology Her prognosis is guarded. Problems: Comment Review of Relevant I have reviewed the following items ketty (where applicable) has been applied. Labs Laboratory Tests Test 01/08/17 12:30 01/09/17 05:20 01/09/17 06:15 01/09/17 09:15 Heparin Anti-Xa Act, Unfractionated 0.84IU/mL (0.30-0.70) < 0.10IU/mL (0.30-0.70) Sodium Level 138mmol/L (136-145) 138mmol/L (136-145) Potassium Level 4.6mmol/L (3.5-5.1) 4.5mmol/L (3.5-5.1) Chloride Level 103mmol/L (98-107) 104mmol/L (98-107) Carbon Dioxide Level 25mmol/L (21-32) 25mmol/L (21-32) Anion Gap 10 (6-14) 9 (6-14) Blood Urea Nitrogen 17mg/dL (7-20) 17mg/dL (7-20) Creatinine 1.5mg/dL (0.6-1.0) 1.6mg/dL (0.6-1.0) Estimated GFR (Cockcroft-Gault) 34.6 32.2 Glucose Level 135mg/dL (70-99) 136mg/dL (70-99) Calcium Level 7.7mg/dL (8.5-10.1) 7.6mg/dL (8.5-10.1) Phosphorus Level 5.7mg/dL (2.6-4.7) Albumin 3.0g/dL (3.4-5.0) White Blood Count 6.0x10^3/uL (4.0-11.0) Red Blood Count 1.97x10^6/uL (3.50-5.40) Hemoglobin 6.3g/dL (12.0-15.5) Hematocrit 19.0% (36.0-47.0) Mean Corpuscular Volume 96fL (79-100) Mean Corpuscular Hemoglobin 32pg (25-35) Mean Corpuscular Hemoglobin Concent 34g/dL (31-37) Red Cell Distribution Width 17.2% (11.5-14.5) Platelet Count 287x10^3/uL (140-400) Neutrophils (%) (Auto) 30% (31-73) Lymphocytes (%) (Auto) 7% (24-48) Monocytes (%) (Auto) 64% (0-9) Eosinophils (%) (Auto) 0% (0-3) Basophils (%) (Auto) 0% (0-3) Neutrophils # (Auto) 1.8x10^3uL (1.8-7.7) Lymphocytes # (Auto) 0.4x10^3/uL (1.0-4.8) Monocytes # (Auto) 3.9x10^3/uL (0.0-1.1) Eosinophils # (Auto) 0.0x10^3/uL (0.0-0.7) Basophils # (Auto) 0.0x10^3/uL (0.0-0.2) Prothrombin Time 20.5SEC (11.7-14.0) Prothromb Time International Ratio 1.9 (0.8-1.1) Magnesium Level 2.0mg/dL (1.8-2.4) Nasal Screen MRSA (PCR) Negative (Negative) Test 01/09/17 21:15 01/10/17 06:00 White Blood Count 10.7x10^3/uL (4.0-11.0) 13.2x10^3/uL (4.0-11.0) Red Blood Count 2.51x10^6/uL (3.50-5.40) 2.50x10^6/uL (3.50-5.40) Hemoglobin 8.0g/dL (12.0-15.5) 7.9g/dL (12.0-15.5) Hematocrit 23.9% (36.0-47.0) 23.9% (36.0-47.0) Mean Corpuscular Volume 95fL (79-100) 96fL (79-100) Mean Corpuscular Hemoglobin 32pg (25-35) 32pg (25-35) Mean Corpuscular Hemoglobin Concent 33g/dL (31-37) 33g/dL (31-37) Red Cell Distribution Width 16.6% (11.5-14.5) 16.8% (11.5-14.5) Platelet Count 382x10^3/uL (140-400) 431x10^3/uL (140-400) Neutrophils (%) (Auto) 19% (31-73) 21% (31-73) Lymphocytes (%) (Auto) 6% (24-48) 5% (24-48) Monocytes (%) (Auto) 75% (0-9) 73% (0-9) Eosinophils (%) (Auto) 0% (0-3) 0% (0-3) Basophils (%) (Auto) 0% (0-3) 0% (0-3) Neutrophils # (Auto) 2.0x10^3uL (1.8-7.7) 2.8x10^3uL (1.8-7.7) Lymphocytes # (Auto) 0.7x10^3/uL (1.0-4.8) 0.7x10^3/uL (1.0-4.8) Monocytes # (Auto) 8.0x10^3/uL (0.0-1.1) 9.6x10^3/uL (0.0-1.1) Eosinophils # (Auto) 0.0x10^3/uL (0.0-0.7) 0.0x10^3/uL (0.0-0.7) Basophils # (Auto) 0.0x10^3/uL (0.0-0.2) 0.0x10^3/uL (0.0-0.2) Segmented Neutrophils % 20% (35-66) Band Neutrophils % 4% (0-9) Lymphocytes % 6% (24-48) Monocytes % 65% (0-10) Metamyelocytes % 3% (0-0) Myelocytes % 2% (0-0) Platelet Estimate Adequate (ADEQUATE) Polychromasia Present Poikilocytosis Slight Anisocytosis Slight Ovalocytes Few Schistocytes Occ Prothrombin Time 22.3SEC (11.7-14.0) Prothromb Time International Ratio 2.1 (0.8-1.1) Sodium Level 138mmol/L (136-145) 137mmol/L (136-145) Potassium Level 4.6mmol/L (3.5-5.1) 4.6mmol/L (3.5-5.1) Chloride Level 103mmol/L (98-107) 103mmol/L (98-107) Carbon Dioxide Level 25mmol/L (21-32) 24mmol/L (21-32) Anion Gap 10 (6-14) 10 (6-14) Blood Urea Nitrogen 23mg/dL (7-20) 25mg/dL (7-20) Creatinine 2.0mg/dL (0.6-1.0) 2.3mg/dL (0.6-1.0) Estimated GFR (Cockcroft-Gault) 24.9 21.2 Glucose Level 112mg/dL (70-99) 118mg/dL (70-99) Calcium Level 7.8mg/dL (8.5-10.1) 8.0mg/dL (8.5-10.1) Phosphorus Level 5.9mg/dL (2.6-4.7) Magnesium Level 2.2mg/dL (1.8-2.4) Albumin 3.3g/dL (3.4-5.0) Laboratory Tests Test 01/09/17 21:15 01/10/17 06:00 White Blood Count 10.7x10^3/uL (4.0-11.0) 13.2x10^3/uL (4.0-11.0) Red Blood Count 2.51x10^6/uL (3.50-5.40) 2.50x10^6/uL (3.50-5.40) Hemoglobin 8.0g/dL (12.0-15.5) 7.9g/dL (12.0-15.5) Hematocrit 23.9% (36.0-47.0) 23.9% (36.0-47.0) Mean Corpuscular Volume 95fL (79-100) 96fL (79-100) Mean Corpuscular Hemoglobin 32pg (25-35) 32pg (25-35) Mean Corpuscular Hemoglobin Concent 33g/dL (31-37) 33g/dL (31-37) Red Cell Distribution Width 16.6% (11.5-14.5) 16.8% (11.5-14.5) Platelet Count 382x10^3/uL (140-400) 431x10^3/uL (140-400) Neutrophils (%) (Auto) 19% (31-73) 21% (31-73) Lymphocytes (%) (Auto) 6% (24-48) 5% (24-48) Monocytes (%) (Auto) 75% (0-9) 73% (0-9) Eosinophils (%) (Auto) 0% (0-3) 0% (0-3) Basophils (%) (Auto) 0% (0-3) 0% (0-3) Neutrophils # (Auto) 2.0x10^3uL (1.8-7.7) 2.8x10^3uL (1.8-7.7) Lymphocytes # (Auto) 0.7x10^3/uL (1.0-4.8) 0.7x10^3/uL (1.0-4.8) Monocytes # (Auto) 8.0x10^3/uL (0.0-1.1) 9.6x10^3/uL (0.0-1.1) Eosinophils # (Auto) 0.0x10^3/uL (0.0-0.7) 0.0x10^3/uL (0.0-0.7) Basophils # (Auto) 0.0x10^3/uL (0.0-0.2) 0.0x10^3/uL (0.0-0.2) Segmented Neutrophils % 20% (35-66) Band Neutrophils % 4% (0-9) Lymphocytes % 6% (24-48) Monocytes % 65% (0-10) Metamyelocytes % 3% (0-0) Myelocytes % 2% (0-0) Platelet Estimate Adequate (ADEQUATE) Polychromasia Present Poikilocytosis Slight Anisocytosis Slight Ovalocytes Few Schistocytes Occ Prothrombin Time 22.3SEC (11.7-14.0) Prothromb Time International Ratio 2.1 (0.8-1.1) Sodium Level 138mmol/L (136-145) 137mmol/L (136-145) Potassium Level 4.6mmol/L (3.5-5.1) 4.6mmol/L (3.5-5.1) Chloride Level 103mmol/L (98-107) 103mmol/L (98-107) Carbon Dioxide Level 25mmol/L (21-32) 24mmol/L (21-32) Anion Gap 10 (6-14) 10 (6-14) Blood Urea Nitrogen 23mg/dL (7-20) 25mg/dL (7-20) Creatinine 2.0mg/dL (0.6-1.0) 2.3mg/dL (0.6-1.0) Estimated GFR (Cockcroft-Gault) 24.9 21.2 Glucose Level 112mg/dL (70-99) 118mg/dL (70-99) Calcium Level 7.8mg/dL (8.5-10.1) 8.0mg/dL (8.5-10.1) Phosphorus Level 5.9mg/dL (2.6-4.7) Magnesium Level 2.2mg/dL (1.8-2.4) Albumin 3.3g/dL (3.4-5.0) Microbiology 12/27/16 Blood Culture - Final, Complete NO GROWTH AFTER 5 DAYS 12/31/16 Urine Culture - Final, Complete 12/31/16 Urine Culture Result 1 (MANE) - Final, Complete Medications Current Medications Acetaminophen (Tylenol) 650 mg 1X ONCE PO Last administered on 12/27/16 09:11 ; Start 12/27/16 at 08:15; Stop 12/27/16 at 08:22; Status DC Diphenhydramine HCl (Benadryl) 25 mg 1X ONCE PO Last administered on 09:12; Start 12/27/16 at 08:15; Stop 12/27/16 at 08:22; Status DC Furosemide (Lasix) 20 mg 1X ONCE IVP ; Start 12/27/16 at 08:15; Stop 12/27/16 at 08:22; Status DC Fentanyl Citrate (Fentanyl 2ml Vial) 25 mcg PRN QID PRN IV PAIN; Start at 16:45; Stop 12/29/16 at 21:00; Status DC Lisinopril (Prinivil) 10 mg DAILY PO ; Start 12/28/16 at 09:00; Stop 12/28/16 at 09:00; Status DC Oxycodone/ Acetaminophen (Percocet 5/325) 1 tab Q4HRS PRN PO MILD/MODERATE PAIN Last administered on 01/09/17 01:27; Start 12/27/16 at 16:45 Gabapentin (Neurontin) 300 mg TID PO Last administered on 12/28/16 10:44; Start 12/27/16 at 21:00; Stop 12/28/16 at 15:23; Status DC Cetirizine HCl (Zyrtec) 10 mg PRN DAILY PRN PO ALLERGIES; Start 12/28/16 at 09: 00 Pantoprazole Sodium (Protonix) 40 mg DAILYAC PO Last administered on 01/10/17 08:21; Start 12/28/16 at 07:30 Oxycodone/ Acetaminophen 2 tab 2 tab Q4HRS PRN PO SEVERE PAIN Last administered on 01/09/17 22:54; Start 12/27/16 at 16:45 Sodium Chloride (Iv Sodium Chloride 0.9% 1000ml Bag) 1,000 ml @ 75 mls/hr [id number] IV Last administered on 12/28/16 07:12; Start 12/27/16 at 17:30; Stop 12/28/16 at 08:15; Status DC Piperacillin Sod/ Tazobactam Sod (Zosyn Per Pharmacy) 1 each PRN DAILY PRN MC SEE COMMENTS; Start 12/27/16 at 17:30; Stop 12/28/16 at 07:27; Status DC Vancomycin HCl 1 each 1 each PRN DAILY PRN MC SEE COMMENTS Last administered on 12/27/16 18:45; Start 12/27/16 at 17:30; Stop 12/27/16 at 18:51; Status DC Vancomycin HCl 2 gm/Sodium Chloride 500 ml @ 250 mls/hr 1X ONCE IV ; Start at 17:45; Stop 12/27/16 at 18:51; Status DC Piperacillin Sod/ Tazobactam Sod 3.375 gm/Sodium Chloride 50 ml @ 100 mls/hr 1X ONCE IV Last administered on 12/27/16 18:07; Start 12/27/16 at 18:00; Stop 12/27/16 at 18:29; Status DC Piperacillin Sod/ Tazobactam Sod 2.25 gm/Sodium Chloride 50 ml @ 100 mls/hr Q6HRS IV Last administered on 12/28/16 06:08; Start 12/28/16 at 00:00; Stop at 07:31; Status DC Vancomycin HCl 1.5 gm/Sodium Chloride 500 ml @ 250 mls/hr Q48H IV ; Start 12/29 at 20:00; Stop 12/29/16 at 20:00; Status DC Micafungin Sodium 100 mg/Dextrose 100 ml @ 100 mls/hr Q24H IV Last administered on 12/31/16 09:13; Start 12/28/16 at 08:00; Stop 12/31/16 at 10:43 ; Status DC Linezolid 300 ml @ 300 mls/hr Q12HR IV Last administered on 12/31/16 09:13; Start 12/28/16 at 09:00; Stop 12/31/16 at 10:43; Status DC Piperacillin Sod/ Tazobactam Sod 2.25 gm/Sodium Chloride 50 ml @ 100 mls/hr Q8HRS IV Last administered on 01/03/17 06:04; Start 12/28/16 at 14:00; Stop at 13:01; Status DC Calcium Chloride 2000 mg/Sodium Chloride 120 ml @ 240 mls/hr 1X ONCE IV Last administered on 12/28/16 08:54; Start 12/28/16 at 08:00; Stop 12/28/16 at 08:29 ; Status DC Magnesium Sulfate/ Dextrose (Magnesium Sulfate PREMIX 2GM) 50 ml @ 25 mls/hr PRN DAILY PRN IV for Mag < 1.7 on am labs Last administered on 01/04/17 09:50 ; Start 12/28/16 at 08:15; Stop 01/06/17 at 11:48; Status DC Sodium Bicarbonate 50 meq 50 meq Q2H IV Last administered on 12/28/16 15:33; Start 12/28/16 at 08:30; Stop 12/28/16 at 10:31; Status DC Sodium Chloride 500 ml @ 0 mls/hr PRN QID PRN IV UO< 30cc/hr over previous 6hrs ; Start 12/28/16 at 08:15; Stop 01/03/17 at 18:34; Status DC Sodium Bicarbonate/ Dextrose 1,150 ml @ 100 mls/hr [id number] IV Last administered on 12/30/16 06:08; Start 12/28/16 at 09:00; Stop 12/30/16 at 08:59 ; Status DC Heparin Sodium (Porcine) (Heparin Sodium) 10,000 unit STK-MED ONCE .ROUTE ; Start 12/28/16 at 08:46; Stop 12/28/16 at 08:47; Status DC Lidocaine/Sodium Bicarbonate 20 ml 20 ml STK-MED ONCE IJ ; Start 12/28/16 at 08: 47; Stop 12/28/16 at 08:48; Status DC Heparin Sodium/ Sodium Chloride 500 ml @ As Directed STK-MED ONCE .ROUTE ; Start 12/28/16 at 08:47; Stop 12/28/16 at 08:48; Status DC Lidocaine/Sodium Bicarbonate (Buffered Lidocaine 1%) 3 ml 1X ONCE IJ Last administered on 12/28/16 10:10; Start 12/28/16 at 09:00; Stop 12/28/16 at 09:01 ; Status DC Heparin Sodium/ Sodium Chloride 60 unit 1X ONCE IV Last administered on 10:11; Start 12/28/16 at 09:00; Stop 12/28/16 at 09:01; Status DC Heparin Sodium (Porcine) (Heparin Sodium) 2,500 unit 1X ONCE INT CAT Last administered on 12/28/16 10:10; Start 12/28/16 at 09:00; Stop 12/28/16 at 09:01 ; Status DC Midazolam HCl (Versed) 2 mg STK-MED ONCE .ROUTE ; Start 12/28/16 at 09:41; Stop 12/28/16 at 09:42; Status DC Saliva Substitute (Biotene Moisturizing Mouth) 2 spray PRN Q15MIN PRN PO DRY MOUTH Last administered on 12/31/16 17:53; Start 12/28/16 at 13:15 Gabapentin (Neurontin) 300 mg DAILY PO Last administered on 01/03/17 09:06; Start 12/29/16 at 09:00; Stop 01/03/17 at 18:21; Status DC Acetaminophen (Tylenol) 650 mg PRN Q6HRS PRN PO MILD PAIN Last administered on 01/08/17 03:23; Start 12/28/16 at 18:15 Ondansetron HCl (Zofran) 4 mg PRN Q6HRS PRN IV NAUSEA/VOMITING Last administered on 12/29/16 11:10; Start 12/29/16 at 10:45; Stop 12/29/16 at 13:53 ; Status DC Ondansetron HCl (Zofran) 8 mg PRN Q8HRS PRN IV NAUSEA/VOMITING Last administered on 12/31/16 03:35; Start 12/29/16 at 14:00; Stop 12/31/16 at 09:03 ; Status DC Prochlorperazine Edisylate 10 mg 10 mg 1X ONCE IV Last administered on 14:00; Start 12/29/16 at 14:00; Stop 12/29/16 at 14:01; Status DC Sodium Chloride 500 ml @ 500 mls/hr 1X ONCE IV Last administered on 23:20; Start 12/29/16 at 23:30; Stop 12/30/16 at 00:29; Status DC Sodium Chloride 500 ml @ 500 mls/hr 1X ONCE IV Last administered on 00:05; Start 12/30/16 at 00:00; Stop 12/30/16 at 00:59; Status DC Sodium Chloride 1,000 ml @ 1,000 mls/hr Q1H PRN IV hypotension; Start 12/30/16 at 08:03; Stop 12/30/16 at 14:02; Status DC Albumin Human (Albuminar) 200 ml @ 200 mls/hr 1X PRN PRN IV Hypotension Last administered on 12/30/16 09:22; Start 12/30/16 at 08:15; Stop 12/30/16 at 14:14 ; Status DC Sodium Chloride (Normal Saline Flush) 10 ml 1X PRN PRN IV AP catheter pack; Start 12/30/16 at 08:15; Stop 12/31/16 at 08:14; Status DC Sodium Chloride (Normal Saline Flush) 10 ml 1X PRN PRN IV HEALTH INFORMATION TECH catheter pack; Start 12/30/16 at 08:15; Stop 12/31/16 at 08:14; Status DC Info (PHARMACY MONITORING -- do not chart) 1 each PRN DAILY PRN MC SEE COMMENTS ; Start 12/30/16 at 08:15; Stop 01/08/17 at 12:44; Status DC Info (PHARMACY MONITORING -- do not chart) 1 each PRN DAILY PRN MC SEE COMMENTS ; Start 12/30/16 at 08:15; Status UNV Paricalcitol (Zemplar) 5 mcg 3X/WEEK IV Last administered on 01/03/17 09:06; Start 12/31/16 at 09:00; Stop 01/04/17 at 11:03; Status DC Calcium Acetate 1334 mg 1,334 mg TIDWMEALS PO Last administered on 01/04/17 09 :46; Start 12/30/16 at 12:00; Stop 01/04/17 at 11:03; Status DC Albumin Human (Plasmanate) 500 ml @ 120 mls/hr Q4HRS IV Last administered on 16:45; Start 12/30/16 at 12:00; Stop 12/30/16 at 19:59; Status DC Ondansetron HCl (Zofran) 8 mg PRN Q6HRS PRN IV NAUSEA/VOMITING, 2ND CHOICE Last administered on 01/03/17 08:59; Start 12/31/16 at 08:58 Lorazepam (Ativan) 0.5 mg PRN Q4HRS PRN IV ANXIETY / AGITATION Last administered on 01/08/17 12:50; Start 12/31/16 at 09:00 Prochlorperazine Edisylate (Compazine) 10 mg PRN Q6HRS PRN IM NAUSEA/VOMITING Last administered on 12/31/16 09:15; Start 12/31/16 at 09:00; Stop 01/01/17 at 11:48; Status DC Metoclopramide HCl 5 mg 5 mg PRN Q6HRS PRN IV NAUSEA/VOMITING, 1ST CHOICE Last administered on 01/01/17 09:42; Start 12/31/16 at 11:45 Magnesium Sulfate/ Dextrose 50 ml @ 25 mls/hr 1X ONCE IV Last administered on 12/31/16 17:54; Start 12/31/16 at 15:00; Stop 12/31/16 at 16:59; Status DC Albumin Human (Plasmanate) 500 ml @ 75 mls/hr Q6H40M IV Last administered on 03:44; Start 12/31/16 at 15:15; Stop 01/01/17 at 11:14; Status DC Prochlorperazine Edisylate (Compazine) 10 mg PRN Q6HRS PRN IV NAUSEA/VOMITING, 3RD CHOICE Last administered on 01/01/17 17:38; Start 01/01/17 at 11:45 Potassium Chloride (Klor-Con) 40 meq 1X ONCE PO Last administered on 13:02; Start 01/01/17 at 12:00; Stop 01/01/17 at 12:01; Status DC Furosemide (Lasix) 40 mg 1X ONCE IVP Last administered on 01/01/17 14:24; Start 01/01/17 at 14:00; Stop 01/01/17 at 14:01; Status DC Albuterol/ Ipratropium (Duoneb) 3 ml PRN Q6HRS PRN NEB SHORTNESS OF BREATH Last administered on 01/05/17 11:26; Start 01/01/17 at 13:45; Stop 01/05/17 at 22:40; Status DC Furosemide (Lasix) 40 mg 1X ONCE IVP Last administered on 01/02/17 11:43; Start 01/02/17 at 10:45; Stop 01/02/17 at 10:46; Status DC Potassium Chloride 40 meq 40 meq 1X ONCE PO Last administered on 01/02/17 13: 21; Start 01/02/17 at 13:15; Stop 01/02/17 at 13:16; Status DC Heparin Sodium/ Dextrose 500 ml @ 0 mls/hr CONT PRN IV SEE I/O RECORD Last administered on 01/08/17 13:35; Start 01/02/17 at 14:45; Stop 01/08/17 at 15:48 ; Status DC Heparin Sodium (Porcine) (Heparin Sodium) 3,150 unit PRN Q6HRS PRN IV FOR UFH LEVEL LESS THAN 0.2; Start 01/02/17 at 14:45; Stop 01/08/17 at 15:48; Status DC Heparin Sodium (Porcine) (Heparin Sodium) 1,550 unit PRN Q6HRS PRN IV FOR UFH LEVEL 0.2 - 0.29; Start 01/02/17 at 14:45; Stop 01/08/17 at 15:48; Status DC Warfarin Sodium (Coumadin Per Pharmacy) 1 each PRN DAILY PRN MC PER PROTOCOL Last administered on 01/03/17 11:34; Start 01/02/17 at 14:45; Stop 01/03/17 at 23:01; Status DC Warfarin Sodium (Coumadin) 5 mg 1X WARF ONCE PO Last administered on 17:41; Start 01/02/17 at 16:00; Stop 01/02/17 at 16:01; Status DC Warfarin Sodium (Coumadin - No Dose Today) 1 each 1X WARF ONCE MC ; Start 01/03 at 16:00; Stop 01/03/17 at 23:01; Status DC Cefpodoxime Proxetil (Vantin) 200 mg BID PO Last administered on 01/05/17 08: 53; Start 01/03/17 at 21:00; Stop 01/05/17 at 09:37; Status DC Cyanocobalamin (Vitamin B-12) 1,000 mcg QMONTH IM Last administered on 09:49; Start 01/04/17 at 09:00 Gabapentin 900 mg 900 mg TID PO Last administered on 01/10/17 08:21; Start at 21:00 Sodium Chloride (Iv Sodium Chloride 0.9% 1000ml Bag) 1,000 ml @ 75 mls/hr [id number] IV Last administered on 01/04/17 09:46; Start 01/03/17 at 18:45; Stop 01/04/17 at 11:04; Status DC Potassium Chloride 20 meq 20 meq 1X ONCE PO Last administered on 01/03/17 18: 56; Start 01/03/17 at 18:45; Stop 01/03/17 at 18:46; Status DC Magnesium Sulfate/ Dextrose 50 ml @ 25 mls/hr PRN DAILY PRN IV for Mag < 1.7 on am labs; Start 01/04/17 at 10:45; Status UNV Potassium Chloride 50 ml @ 50 mls/hr PRN Q6HRS PRN IV For K < 3.7 Last administered on 01/05/17 13:10; Start 01/04/17 at 10:45 Potassium Chloride 50 ml @ 50 mls/hr PRN Q2HR PRN IV total of 40mEq for K < 3.5 Last administered on 01/04/17 13:46; Start 01/04/17 at 10:45 Albumin Human (Albuminar) 100 ml @ 100 mls/hr TID IV Last administered on 01/06 08:53; Start 01/04/17 at 14:00; Stop 01/06/17 at 09:59; Status DC Warfarin Sodium (Coumadin) 4 mg DAILY16 PO Last administered on 01/08/17 17:15 ; Start 01/04/17 at 17:00; Stop 01/09/17 at 08:15; Status DC Warfarin Sodium 1 each 1 each PRN DAILY PRN MC SEE COMMENTS Last administered on 01/08/17 12:40; Start 01/04/17 at 17:00 Magnesium Sulfate/ Dextrose 100 ml @ 100 mls/hr 1X ONCE IV Last administered on 01/05/17 11:35; Start 01/05/17 at 11:00; Stop 01/05/17 at 11:59; Status DC Magnesium Sulfate/ Dextrose 50 ml @ 25 mls/hr PRN DAILY PRN IV for Mag < 1.7 on am labs Last administered on 01/08/17 09:27; Start 01/05/17 at 11:00 Potassium Chloride (KCl Premix 20meq) 50 ml @ 25 mls/hr Q2HR IV Last administered on 01/05/17 23:42; Start 01/05/17 at 16:00; Stop 01/05/17 at 19:59 ; Status DC Iohexol (Omnipaque 300 Mg/ml) 60 ml 1X ONCE IV ; Start 01/05/17 at 16:15; Stop 01/05/17 at 16:16; Status DC Iohexol (Omnipaque 240 Mg/ml) 30 ml 1X ONCE PO Last administered on 01/05/17 15:45; Start 01/05/17 at 16:15; Stop 01/05/17 at 16:16; Status DC Info (Do NOT chart on this entry -- for MONITORING) 1 each PRN DAILY PRN MC SEE COMMENTS; Start 01/05/17 at 16:15; Stop 01/07/17 at 16:14; Status DC Albuterol/ Ipratropium (Duoneb) 3 ml RTQID NEB Last administered on 01/10/17 07 :59; Start 01/05/17 at 20:00 Budesonide (Pulmicort) 0.5 mg RTBID NEB Last administered on 01/10/17 08:00; Start 01/05/17 at 20:00 Furosemide (Lasix) 20 mg 1X ONCE IVP Last administered on 01/05/17 22:04; Start 01/05/17 at 22:00; Stop 01/05/17 at 22:01; Status DC Albuterol Sulfate (Ventolin Neb Soln) 2.5 mg PRN Q6HRS PRN NEB SHORTNESS OF BREATH Last administered on 01/08/17 03:37; Start 01/05/17 at 22:40 Furosemide (Lasix) 40 mg 1X ONCE IVP Last administered on 01/07/17 11:50; Start 01/07/17 at 11:30; Stop 01/07/17 at 11:31; Status DC Furosemide 40 mg 40 mg DAILY IVP Last administered on 01/10/17 08:21; Start at 09:00 Albumin Human (Albuminar) 100 ml @ 100 mls/hr DAILY IV Last administered on 08:22; Start 01/08/17 at 17:00; Stop 01/10/17 at 16:59 Tramadol HCl (Ultram) 50 mg PRN Q6HRS PRN PO MODERATE PAIN Last administered on 01/08/17 22:28; Start 01/08/17 at 22:15 Phytonadione (Vitamin K) 10 mg 1X ONCE SQ Last administered on 01/10/17 09:42 ; Start 01/10/17 at 09:15; Stop 01/10/17 at 09:16; Status DC Heparin Sodium (Porcine) (Heparin Sodium) 10,000 unit STK-MED ONCE .ROUTE ; Start 01/10/17 at 10:39; Stop 01/10/17 at 10:40; Status DC Lidocaine/Sodium Bicarbonate 20 ml 20 ml STK-MED ONCE IJ ; Start 01/10/17 at 10: 39; Stop 01/10/17 at 10:40; Status DC Heparin Sodium/ Sodium Chloride 500 ml @ As Directed STK-MED ONCE .ROUTE ; Start 01/10/17 at 10:39; Stop 01/10/17 at 10:40; Status DC Active Scripts Active Reported Gabapentin 300 Mg Capsule 900 Mg PO TID Claritin (Loratadine) 10 Mg Tablet 1 Tab PO DAILY PRN Bactrim 400-80 Mg Tablet (Sulfamethoxazole/Trimethoprim) 1 Each Tablet 1 Tab PO BID Gabapentin 300 Mg Capsule 300 Mg PO TID Zestril (Lisinopril) 10 Mg Tablet 10 Mg PO DAILY Cyanocobalamin Injection (Cyanocobalamin (Vitamin B-12)) 1,000 Mcg/1 Ml Vial 1, 000 Mcg QMONTH Percocet 5-325 Mg Tablet (Oxycodone/Acetaminophen) 1 Each Tablet 1-2 Tab PO Q4- 6HRS Prilosec Otc (Omeprazole Magnesium) 20 Mg Tablet.dr 20 Mg PO DAILY Vitals/I & O Vital Sign - Last 24 Hours 01/09/17 01/09/17 01/09/17 01/09/17 12:00 12:00 13:00 13:03 Temp 97.8 97.8 Pulse 94 98 Resp 20 B/P 76/58 108/62 Pulse Ox 99 96 100 O2 Delivery Nasal Cannula Nasal Cannula Nasal Cannula Nasal Cannula O2 Flow Rate 4.0 4.0 4.0 3.0 01/09/17 01/09/17 01/09/17 01/09/17 14:00 14:00 14:15 15:00 Temp 97.8 97.9 97.8 97.8 97.9 97.8 Pulse 100 100 100 102 Resp 08 31 20 20 B/P 87/52 87/52 100/58 148/99 Pulse Ox 96 O2 Delivery Nasal Cannula O2 Flow Rate 4.0 01/09/17 01/09/17 01/09/17 01/09/17 15:00 16:00 16:00 16:00 Temp 97.8 97.8 97.8 97.8 Pulse 102 103 100 Resp 20 B/P 148/99 93/57 99/65 Pulse Ox 94 94 O2 Delivery Nasal Cannula Nasal Cannula Nasal Cannula O2 Flow Rate 4.0 4.0 4.0 01/09/17 01/09/17 01/09/17 01/09/17 16:47 17:00 18:00 18:00 Temp 97.8 97.8 Pulse 102 103 104 Resp 22 B/P 96/52 93/57 114/60 Pulse Ox 96 94 94 O2 Delivery Nasal Cannula Nasal Cannula Nasal Cannula O2 Flow Rate 3.0 4.0 4.0 01/09/17 01/09/17 01/09/17 01/09/17 18:22 19:00 19:38 20:00 Temp 98.7 97.9 98.7 97.9 Pulse 104 106 Resp 22 B/P 82/64 90/67 Pulse Ox 95 95 O2 Delivery Nasal Cannula Nasal Cannula Nasal Cannula O2 Flow Rate 4.0 3.0 4.0 01/09/17 01/09/17 01/09/17 01/09/17 20:00 21:00 22:00 22:54 Pulse 104 104 107 Resp B/P 96/60 92/64 122/69 Pulse Ox 95 96 94 O2 Delivery Nasal Cannula Nasal Cannula Nasal Cannula Nasal Cannula O2 Flow Rate 4.0 4.0 4.0 01/09/17 01/09/17 01/09/17 01/10/17 23:00 23:54 23:59 00:00 Temp 97.9 97.9 Pulse 110 107 Resp 16 B/P 117/69 96/59 Pulse Ox 94 94 O2 Delivery Nasal Cannula Nasal Cannula Nasal Cannula Nasal Cannula O2 Flow Rate 4.0 3.0 3.0 3.0 01/10/17 01/10/17 01/10/17 01/10/17 01:00 02:00 03:00 04:00 Temp 98.0 98.0 Pulse 103 104 100 102 Resp 18 18 18 18 B/P 117/71 112/67 110/60 110/53 Pulse Ox 94 94 94 95 O2 Delivery Nasal Cannula Nasal Cannula Nasal Cannula Nasal Cannula O2 Flow Rate 4.0 4.0 4.0 4.0 01/10/17 01/10/17 01/10/17 01/10/17 04:00 05:00 06:00 07:15 Temp 98.2 98.2 Pulse 103 102 105 Resp 18 18 16 B/P 109/61 117/60 137/65 Pulse Ox 94 94 92 O2 Delivery Nasal Cannula Nasal Cannula Nasal Cannula Nasal Cannula O2 Flow Rate 3.0 4.0 4.0 4.0 01/10/17 01/10/17 01/10/17 01/10/17 08:00 08:00 08:15 09:00 Pulse 106 104 Resp 18 18 B/P 115/75 137/79 Pulse Ox 93 94 97 O2 Delivery Nasal Cannula Nasal Cannula Nasal Cannula Nasal Cannula O2 Flow Rate 4.0 3.0 4.0 4.0 01/10/17 01/10/17 10:00 11:00 Pulse 98 100 Resp 18 18 B/P 155/58 125/64 Pulse Ox 86 O2 Delivery Nasal Cannula Nasal Cannula O2 Flow Rate 4.0 4.0 Intake and Output 01/09/17 01/09/17 01/10/17 15:00 23:00 07:00 Intake Total 100 ml 355 ml 400 ml Output Total 55 ml 10 ml Balance 100 ml 300 ml 390 ml DAMIEN HOPSON III DO January 10, 2017 11:47
--- NOTE | 2017-01-10 12:01 | PDOC ---
SANJU DELAROSA MACHINE CEMENTER AND FOLDER 01/10/17 1201: SURGICAL PROGRESS NOTE Subjective not much abdominal pain no nausea thirsty Vital Signs Vital Signs Date Time Temp Pulse Resp B/P Pulse Ox O2 Delivery O2 Flow Rate FiO2 01/10/17 11:45 Nasal Cannula 4.0 01/10/17 11:00 100 18 125/64 86 01/10/17 07:15 98.2 98.2 I&O Intake and Output 01/10/17 07:00 Intake Total 855 ml Output Total 65 ml Balance 790 ml Intake Oral 160 ml IV Total 100 ml Blood Product 595 ml Output Urine Total 65 ml General: Alert, Oriented X3, Cooperative, No acute distress Abdomen: Soft, Other (firmness to L abdomen, no eccyhmosis ) Labs Laboratory Tests Test 01/08/17 12:30 01/09/17 05:20 01/09/17 06:15 01/09/17 09:15 Heparin Anti-Xa Act, Unfractionated 0.84IU/mL (0.30-0.70) < 0.10IU/mL (0.30-0.70) Sodium Level 138mmol/L (136-145) 138mmol/L (136-145) Potassium Level 4.6mmol/L (3.5-5.1) 4.5mmol/L (3.5-5.1) Chloride Level 103mmol/L (98-107) 104mmol/L (98-107) Carbon Dioxide Level 25mmol/L (21-32) 25mmol/L (21-32) Anion Gap 10 (6-14) 9 (6-14) Blood Urea Nitrogen 17mg/dL (7-20) 17mg/dL (7-20) Creatinine 1.5mg/dL (0.6-1.0) 1.6mg/dL (0.6-1.0) Estimated GFR (Cockcroft-Gault) 34.6 32.2 Glucose Level 135mg/dL (70-99) 136mg/dL (70-99) Calcium Level 7.7mg/dL (8.5-10.1) 7.6mg/dL (8.5-10.1) Phosphorus Level 5.7mg/dL (2.6-4.7) Albumin 3.0g/dL (3.4-5.0) White Blood Count 6.0x10^3/uL (4.0-11.0) Red Blood Count 1.97x10^6/uL (3.50-5.40) Hemoglobin 6.3g/dL (12.0-15.5) Hematocrit 19.0% (36.0-47.0) Mean Corpuscular Volume 96fL (79-100) Mean Corpuscular Hemoglobin 32pg (25-35) Mean Corpuscular Hemoglobin Concent 34g/dL (31-37) Red Cell Distribution Width 17.2% (11.5-14.5) Platelet Count 287x10^3/uL (140-400) Neutrophils (%) (Auto) 30% (31-73) Lymphocytes (%) (Auto) 7% (24-48) Monocytes (%) (Auto) 64% (0-9) Eosinophils (%) (Auto) 0% (0-3) Basophils (%) (Auto) 0% (0-3) Neutrophils # (Auto) 1.8x10^3uL (1.8-7.7) Lymphocytes # (Auto) 0.4x10^3/uL (1.0-4.8) Monocytes # (Auto) 3.9x10^3/uL (0.0-1.1) Eosinophils # (Auto) 0.0x10^3/uL (0.0-0.7) Basophils # (Auto) 0.0x10^3/uL (0.0-0.2) Prothrombin Time 20.5SEC (11.7-14.0) Prothromb Time International Ratio 1.9 (0.8-1.1) Magnesium Level 2.0mg/dL (1.8-2.4) Nasal Screen MRSA (PCR) Negative (Negative) Test 01/09/17 21:15 01/10/17 06:00 White Blood Count 10.7x10^3/uL (4.0-11.0) 13.2x10^3/uL (4.0-11.0) Red Blood Count 2.51x10^6/uL (3.50-5.40) 2.50x10^6/uL (3.50-5.40) Hemoglobin 8.0g/dL (12.0-15.5) 7.9g/dL (12.0-15.5) Hematocrit 23.9% (36.0-47.0) 23.9% (36.0-47.0) Mean Corpuscular Volume 95fL (79-100) 96fL (79-100) Mean Corpuscular Hemoglobin 32pg (25-35) 32pg (25-35) Mean Corpuscular Hemoglobin Concent 33g/dL (31-37) 33g/dL (31-37) Red Cell Distribution Width 16.6% (11.5-14.5) 16.8% (11.5-14.5) Platelet Count 382x10^3/uL (140-400) 431x10^3/uL (140-400) Neutrophils (%) (Auto) 19% (31-73) 21% (31-73) Lymphocytes (%) (Auto) 6% (24-48) 5% (24-48) Monocytes (%) (Auto) 75% (0-9) 73% (0-9) Eosinophils (%) (Auto) 0% (0-3) 0% (0-3) Basophils (%) (Auto) 0% (0-3) 0% (0-3) Neutrophils # (Auto) 2.0x10^3uL (1.8-7.7) 2.8x10^3uL (1.8-7.7) Lymphocytes # (Auto) 0.7x10^3/uL (1.0-4.8) 0.7x10^3/uL (1.0-4.8) Monocytes # (Auto) 8.0x10^3/uL (0.0-1.1) 9.6x10^3/uL (0.0-1.1) Eosinophils # (Auto) 0.0x10^3/uL (0.0-0.7) 0.0x10^3/uL (0.0-0.7) Basophils # (Auto) 0.0x10^3/uL (0.0-0.2) 0.0x10^3/uL (0.0-0.2) Segmented Neutrophils % 20% (35-66) Band Neutrophils % 4% (0-9) Lymphocytes % 6% (24-48) Monocytes % 65% (0-10) Metamyelocytes % 3% (0-0) Myelocytes % 2% (0-0) Platelet Estimate Adequate (ADEQUATE) Polychromasia Present Poikilocytosis Slight Anisocytosis Slight Ovalocytes Few Schistocytes Occ Prothrombin Time 22.3SEC (11.7-14.0) Prothromb Time International Ratio 2.1 (0.8-1.1) Sodium Level 138mmol/L (136-145) 137mmol/L (136-145) Potassium Level 4.6mmol/L (3.5-5.1) 4.6mmol/L (3.5-5.1) Chloride Level 103mmol/L (98-107) 103mmol/L (98-107) Carbon Dioxide Level 25mmol/L (21-32) 24mmol/L (21-32) Anion Gap 10 (6-14) 10 (6-14) Blood Urea Nitrogen 23mg/dL (7-20) 25mg/dL (7-20) Creatinine 2.0mg/dL (0.6-1.0) 2.3mg/dL (0.6-1.0) Estimated GFR (Cockcroft-Gault) 24.9 21.2 Glucose Level 112mg/dL (70-99) 118mg/dL (70-99) Calcium Level 7.8mg/dL (8.5-10.1) 8.0mg/dL (8.5-10.1) Phosphorus Level 5.9mg/dL (2.6-4.7) Magnesium Level 2.2mg/dL (1.8-2.4) Albumin 3.3g/dL (3.4-5.0) Laboratory Tests Test 01/09/17 21:15 01/10/17 06:00 White Blood Count 10.7x10^3/uL (4.0-11.0) 13.2x10^3/uL (4.0-11.0) Red Blood Count 2.51x10^6/uL (3.50-5.40) 2.50x10^6/uL (3.50-5.40) Hemoglobin 8.0g/dL (12.0-15.5) 7.9g/dL (12.0-15.5) Hematocrit 23.9% (36.0-47.0) 23.9% (36.0-47.0) Mean Corpuscular Volume 95fL (79-100) 96fL (79-100) Mean Corpuscular Hemoglobin 32pg (25-35) 32pg (25-35) Mean Corpuscular Hemoglobin Concent 33g/dL (31-37) 33g/dL (31-37) Red Cell Distribution Width 16.6% (11.5-14.5) 16.8% (11.5-14.5) Platelet Count 382x10^3/uL (140-400) 431x10^3/uL (140-400) Neutrophils (%) (Auto) 19% (31-73) 21% (31-73) Lymphocytes (%) (Auto) 6% (24-48) 5% (24-48) Monocytes (%) (Auto) 75% (0-9) 73% (0-9) Eosinophils (%) (Auto) 0% (0-3) 0% (0-3) Basophils (%) (Auto) 0% (0-3) 0% (0-3) Neutrophils # (Auto) 2.0x10^3uL (1.8-7.7) 2.8x10^3uL (1.8-7.7) Lymphocytes # (Auto) 0.7x10^3/uL (1.0-4.8) 0.7x10^3/uL (1.0-4.8) Monocytes # (Auto) 8.0x10^3/uL (0.0-1.1) 9.6x10^3/uL (0.0-1.1) Eosinophils # (Auto) 0.0x10^3/uL (0.0-0.7) 0.0x10^3/uL (0.0-0.7) Basophils # (Auto) 0.0x10^3/uL (0.0-0.2) 0.0x10^3/uL (0.0-0.2) Segmented Neutrophils % 20% (35-66) Band Neutrophils % 4% (0-9) Lymphocytes % 6% (24-48) Monocytes % 65% (0-10) Metamyelocytes % 3% (0-0) Myelocytes % 2% (0-0) Platelet Estimate Adequate (ADEQUATE) Polychromasia Present Poikilocytosis Slight Anisocytosis Slight Ovalocytes Few Schistocytes Occ Prothrombin Time 22.3SEC (11.7-14.0) Prothromb Time International Ratio 2.1 (0.8-1.1) Sodium Level 138mmol/L (136-145) 137mmol/L (136-145) Potassium Level 4.6mmol/L (3.5-5.1) 4.6mmol/L (3.5-5.1) Chloride Level 103mmol/L (98-107) 103mmol/L (98-107) Carbon Dioxide Level 25mmol/L (21-32) 24mmol/L (21-32) Anion Gap 10 (6-14) 10 (6-14) Blood Urea Nitrogen 23mg/dL (7-20) 25mg/dL (7-20) Creatinine 2.0mg/dL (0.6-1.0) 2.3mg/dL (0.6-1.0) Estimated GFR (Cockcroft-Gault) 24.9 21.2 Glucose Level 112mg/dL (70-99) 118mg/dL (70-99) Calcium Level 7.8mg/dL (8.5-10.1) 8.0mg/dL (8.5-10.1) Phosphorus Level 5.9mg/dL (2.6-4.7) Magnesium Level 2.2mg/dL (1.8-2.4) Albumin 3.3g/dL (3.4-5.0) Problem List Problems Medical Problems: (1) Cellulitis Status: Acute Assessment/Plan hematoma, 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
--- NOTE | 2017-01-10 13:43 | PDOC ---
Exam Powder Press Operator Powder Press Operator Nereida Military Technician Military Technician B Cates Pre-Procedure Diagnosis Pre-Procedure Diagnosis Recurrent renal failure. Temp HDC replacement requested by Renal, bedside in ICU. Post-Procedure Diagnosis Post-Procedure Diagnosis Same Procedure Performed Procedure Performed Bedside ICU sono guided Temp HDC insertion Type of Anesthesia Type of Anesthesia Local Estimated Blood Loss EBL: Trace Drain/Tubes Drains/Tubes Left IJ 14F 24cm Schon Temp HDC Condition of Patient Condition of Patient No change. No apparent complication. Disposition Disposition STAT pCXR requested for Temp HDC position. Full report to follow. KIAH MARTINEZ MD January 10, 2017 13:43
--- NOTE | 2017-01-10 13:52 | RAD ---
Indication placement of dialysis catheter. Assess for potential complication. A single view of the chest was obtained and is compared to a study one day earlier. There is unchanged cardiomegaly. Changes of congestive heart failure persist. The level of inspiratory effort is not quite as good as on the previous examination. Given changes in the level of inspiratory effort pulmonary vasculature is likely similar. Pleural effusions and some atelectasis persists also appearing similar. There is a right Port-A-Cath. Relative to the previous exam a left-sided dialysis catheter has been placed which extends to the right atrium. No pneumothorax is seen. IMPRESSION: Interval placement of left-sided dialysis catheter. No complication seen. Bilateral pleural effusions appearing similar. Mild congestive heart failure also appearing similar
--- NOTE | 2017-01-10 14:26 | CONS ---
DATE OF CONSULTATION: 01/09/2017 DIAGNOSIS: Right jugular deep venous thrombosis. HISTORY OF PRESENT ILLNESS: This is a 66-year-old female with a history of cholangio cancer who received treatments in the past from [facility]. She has a history of DVT in her legs over a year ago, treated with Lovenox and apparently that has resolved as a recent ultrasound showed no evidence of DVT in her leg. She has been on heparin and then Coumadin anticoagulation for DVT in the right internal jugular vein. Now, she developed a hematoma in her abdomen and I was consulted to see whether she needed to be on anticoagulation. Her protime today is 20 with an INR of 1.9. Review of her ultrasound, again no evidence of DVT in her legs. The ultrasound of her arms revealed no right subclavian or arm DVT; however, there was a DVT in the right internal jugular vein. Interestingly, she has got a history of a right chest Port-A-Cath and that catheter most likely is introduced into the right internal jugular vein and probably is because of the right internal jugular vein thrombus. Most likely that is a well organized thrombus around that catheter, it has probably been there a while and is very unlikely to embolize. PAST MEDICAL HISTORY: More recently, she developed renal insufficiency and a left internal jugular vein dialysis catheter was placed by Dr. Padron on the . She most likely will eventually need that to be replaced by a Perm-A-Cath and perhaps some arm access which we can do at a later date after she has passed these current problems. PHYSICAL EXAMINATION: GENERAL: Pleasant female, appears fairly pale, in no severe distress. She has got strong radial pulses bilaterally. She has got left jugular dialysis catheter temporary. She has got a Port-A-Cath in the right chest which most likely ____ to the jugular vein. CARDIOVASCULAR: Regular heart rate, nonlabored respirations. ABDOMEN: Soft, but obese and little tender in the left upper quadrant. IMPRESSION: Probably chronic clot in the right internal jugular vein with very little risk of embolization. I would not anticoagulate her for that clot and she has no other clots at the present time. My recommendation is to discontinue her Coumadin. The heparin has already been discontinued and I would not treat her with any anticoagulation at this time, perhaps add aspirin when she no longer is having any intraabdominal bleeding. Later, we can consider changing the dialysis catheter to Perm-A-Cath if desired. Thanks for allowing us to see her. MARIA ELENA HAYWOOD MD DR: ALISON/bonnie JOB#: [id number] / [id number]
--- NOTE | 2017-01-10 15:43 | CARD ---
APPROVED REPORT EXAM: Two-dimensional and M-mode echocardiogram with Doppler and color Doppler. Other Information Quality : GoodHR: 103bpm Rhythm : Bradycardia INDICATION Congestive Heart Failure 2D DIMENSIONS RVDd2.8 (2.9-3.5cm)Left Atrium(2D)3.8 (1.6-4.0cm) IVSd2.7 (0.7-1.1cm)Aortic Root(2D)3.4 (2.0-3.7cm) LVDd4.7 (3.9-5.9cm)LVOT Diameter2.5 (1.8-2.4cm) PWd1.2 (0.7-1.1cm)LVDs2.6 (2.5-4.0cm) FS (%) 44.8 %SV77.6 ml LVEF(%)76.1 (>50%) Aortic Valve AoV Peak Cedric.193.9cm/sAoV VTI26.9cm AO Peak GR.15.0mmHgLVOT VTI 26.25cm AO Mean GR.7mmHg Mitral Valve MV E Otwmvuvj41.3cm/sMV E Peak Gr.6mmHg MV DECEL [id number] A Qldjlojj55.8cm/s MV E Mean Gr.3mmHgE/A Ratio0.7 MV A [id number] TDI Lateral E' P. V7.66cm/sMedial E' P. V7.14cm/s E/Lateral E'8.3E/Medial E'8.9 Tricuspid Valve TR P. [id number] [id number] TR Peak Gr.44mmHg Pulmonary Vein S1 Edoulktv25.8cm/sS2 Qiritxzm93.71cm/s D2 Bixjkhcg45.7cm/sPVa [id number] LEFT VENTRICLE The left ventricle is normal size. There is mild concentric left ventricular hypertrophy. The left ve ntricular systolic function is normal and the ejection fraction is within normal range. The Ejection Fraction is >70%. There is normal LV segmental wall motion. Transmitral Doppler flow pattern is Grade I-abnormal relaxation pattern. RIGHT VENTRICLE The right ventricle is normal size. There is normal right ventricular wall thickness. The right ventr icular systolic function is normal. ATRIA The left atrium is mildly dilated. The right atrium size is normal. The interatrial septum is intact with no evidence for an atrial septal defect or patent foramen ovale as noted on 2-D or Doppler imagi ng. AORTIC VALVE The aortic valve is mildly thickened. The aortic valve is trileaflet. Doppler and Color Flow revealed no significant aortic regurgitation. There is no significant aortic valvular stenosis. MITRAL VALVE The mitral valve leaflets are thickened. There is no evidence of mitral valve prolapse. There is no m itral valve stenosis. Doppler and Color Flow revealed no mitral valve regurgitation noted. TRICUSPID VALVE Doppler and Color Flow revealed mild tricuspid regurgitation. The pulmonary artery systolic pressure is estimated at 47 mmHg. There is moderate pulmonary hypertension. PULMONIC VALVE Doppler and Color Flow revealed no pulmonic valvular regurgitation. There is no pulmonic valvular dionicio nosis. GREAT VESSELS The aortic root is normal in size. The ascending aorta is normal in size. The pulmonary artery is nor mal. The IVC is normal in size and collapses >50% with inspiration. PERICARDIAL EFFUSION There is moderate left pleural effusion. There is a small loculated posterior pericardial effusion. Critical Notification Critical Value: No <Conclusion> The left ventricular systolic function is normal and the ejection fraction is within normal range. Th e Ejection Fraction is >70%. Doppler and Color Flow revealed mild tricuspid regurgitation. The pulmonary artery systolic pressure is estimated at 47 mmHg. There is moderate pulmonary hypertension. There is moderate left pleural effusion. There is a small loculated posterior pericardial effusion.
[2017-01-11] VITALS (21 sets, daily range): BP systolic 109–156; BP diastolic 49–71
--- NOTE | 2017-01-11 03:11 | PN ---
DATE: PRIMARY PHYSICIAN: Dr. Escobar. REASON FOR CONSULTATION: Recurrent acute renal failure. HISTORY OF PRESENT ILLNESS: The patient is a 66-year-old female who we have seen earlier for her acute renal failure, metabolic acidosis. She was on dialysis and eventually her creatinine was down to 0.9 and 1.0 as of 01/07. She was urinating well, but had issues with edema during that timeframe. She was on the floor and had developed significant hypotension as well as required blood transfusions. She was somewhat tachycardic and was brought down to the ICU. Her lowest blood pressure is available to me was 76/58 yesterday. Prior to that, she has been as low as 88/49 on the at night. Her hemoglobin was down to 6.3 yesterday, she underwent a CT scan and was found to have a left retroperitoneal hematoma with minimal left-sided flank pain. She also had developed acute renal failure with oliguria and anuria through this and her creatinine is now up to 2.3 today. We were asked to see her for the same last night after she was noted to be oliguric. She was, however, receiving blood transfusion and IV fluid boluses were also ordered. Her urine output has just started to picker and packer at this time. OBJECTIVE: VITAL SIGNS: Available to me, most recent today shows 125/64, pulse of 100. Oxygen is 97% on 4 liters. GENERAL: She is awake, alert and oriented, in no respiratory distress. HEENT: NC/AT. Pupils are reactive. Conjunctivae were slightly on the pale side. Mucous membranes are moist. No accessory muscle use. No ear, nasal drainage. NECK: Supple, no thyromegaly. LUNGS: Clear to auscultation. ABDOMEN: Soft, nontender, nondistended. Minimal left CVA tenderness, no suprapubic tenderness. EXTREMITIES: Lower extremities +2 to +3 edema. She is able to move all 4 extremities, although range of motion and strength is slightly decreased, probably due to fatigue and chronic hospitalization. Minimal edema in the lower extremities also noted. LABORATORY DATA: Shows a potassium of 4.6, CO2 of 24, BUN 25, creatinine 2.3. ASSESSMENT AND PLAN: 1. Acute renal failure, suspect due to left retroperitoneal hematoma and recent hypotension, acute tubular necrosis cannot be ruled out. Decreased function from her left kidney, cannot be ruled out. I doubt that she has significant underlying contrast nephropathy; however, that is still a possibility. 2. Anemia. Defer to Dr. Connell, she does have a retroperitoneal hematoma and has history of blood transfusion. 3. History of hypertension, now occasional hypotension, currently off all blood pressure medications. 4. Edema. This has been attributed to capillary leak associated with Gemzar. She has received IV albumin. She also received blood transfusion. I am not sure that excessive ultrafiltration will change this except for progress to significant and complete total acute tubular necrosis. As long as she can ____ tolerate this. I believe she may be better off with a little edema. 5. History of cholangiocarcinoma. We will defer management to Dr. Connell. 6. History of hematuria previously, currently anuric hence no UA is available. This may need to be checked on a later date for clearing. DAKOTA VINCENT MD DR: RANULFO/bonnie JOB#: [id number] / [id number]
[2017-01-11 06:12] LABS: ALBUMIN 3.1 g/dL (3.4-5.0); CALCIUM 7.8 mg/dL (8.5-10.1); CREATININE 2.3 mg/dL (0.6-1.0); GFR 21.2; MAGNESIUM 2.2 mg/dL (1.8-2.4); POTASSIUM 4.3 mmol/L (3.5-5.1)
[2017-01-11 06:43] LABS: INR 1.5 (0.8-1.1); PROTHROMBIN TIME PATIENT 17.6 SEC (11.7-14.0)
--- NOTE | 2017-01-11 07:53 | RAD ---
Bedside ultrasound-guided left IJ temporary hemodialysis catheter insertion Indication: 66-year-old female ICU patient with recurrent acute renal failure, requiring hemodialysis. Bedside temporary dialysis catheter insertion has been requested by renal. Anesthesia: Local only Sterility: All elements of maximal sterile barrier technique, including the use of a cap, mask, sterile gown, sterile gloves, large sterile sheet, appropriate hand hygiene, and 2% chlorhexidine for cutaneous antisepsis (or acceptable alternative antiseptic per current guidelines) were utilized. Procedure: Informed consent was obtained from the patient. This procedure was performed bedside in ICU. Preliminary ultrasound examination of left neck revealed wide patency of left internal jugular vein, which was documented with a single hard copy ultrasound image. Left neck was then prepped and draped in the usual sterile fashion, utilizing all elements of maximal sterile barrier technique, as described above. Using aseptic technique, local anesthesia, direct ultrasound guidance, and the micropuncture system, successful percutaneous entry was achieved into left internal jugular vein. The left IJ venostomy tract was then dilated and a 14 [place] 24 cm temporary hemodialysis catheter was easily advanced centrally over an angiographic guidewire. The catheter was documented to flush and aspirate normally, was packed, and was secured at the left neck exit site utilizing suture and sterile dressing. Patient tolerated the procedure well without apparent complication. A stat portable chest x-ray was requested for line position. Impression: Successful, uneventful ultrasound guided placement of left IJ 14 [place] 24 cm temporary hemodialysis catheter, bedside in ICU, as described.
[2017-01-11] MEDS: FUROSEMIDE 40 MG/4 ML VIAL. IVP SCH ×2 (08:11→08:14)
[2017-01-11] MEDS: PANTOPRAZOLE 40 MG TABLET.DR. PO SCH (08:11)
[2017-01-11] MEDS: GABAPENTIN 300 MG CAPSULE. PO SCH ×3 (08:11→21:48)
[2017-01-11] MEDS: IPRATRPIUM/ALBUTEROL 0.5/2.5MG 3 ML NEBU. NEB SCH ×4 (08:17→19:21)
[2017-01-11] MEDS: BUDESONIDE 0.5 MG/2 ML NEBU. NEB SCH ×2 (08:18→19:20)
--- NOTE | 2017-01-11 09:15 | PDOC ---
SUBJECTIVE ROS ARTURO Doing OK this am CVS: no Orthopnea, no CP RESP: no SOB, no SEGUNDO GI: no Nausea, no Vomiting : no Dysuria, no Urgency OBJECTIVE Vital Signs Vital Signs Date Time Temp Pulse Resp B/P Pulse Ox O2 Delivery O2 Flow Rate FiO2 01/11/17 08:10 88 20 118/53 100 Nasal Cannula 4.0 01/11/17 07:20 98.0 98.0 I & 0 Intake and Output 01/11/17 07:00 Intake Total 160 ml Output Total 310 ml Balance -150 ml Intake Oral 60 ml IV Total 100 ml Output Urine Total 310 ml PHYSICAL EXAM Physical Exam GEN: Awake, Oriented x 3, In no distress EYES: Vision Unchanged, Conjunctiva Normal EN: No EN Drainage, Mucous Membranes moist NECK: no JVD, no JVP, Supple, no Thyromegaly CVS: S1S2, no Murmur, No Gallop, No Rub,+ Edema RESP: ? Rare basal Rales, no Rhonchi,no Acc. Muscle Use GI: BS + ve, NO Bruit, Non Tender, Non Distended : no CVA tenderness, no Suprapubic Tenderness DIAGNOSIS/ASSESSMENT Assessment & Plan Acute renal failure, suspect due to left retroperitoneal hematoma and recent hypotension, ATN cannot be ruled out. Decreased function from her left kidney, cannot be ruled out. I doubt that she has significant underlying contrast nephropathy; however, that is still a possibility. Creat is stable from yest although she is still Oliguric. RN reports increasing UO so will watch off of HD Anemia. Defer to Dr. Connell, she does have a retroperitoneal hematoma and has history of blood transfusion. hgb stable for now History of hypertension, now occasional hypotension, currently off all blood pressure medications. Edema. This has been attributed to capillary leak associated with Gemzar. She has received IV albumin. She also received blood transfusion but that does not seem to have helped much. I am not sure that excessive ultrafiltration will change this except for progress to significant and complete total acute tubular necrosis. As long as she can symptomatically tolerate this, she may be better off with a little edema for the time being History of cholangiocarcinoma. We will defer management to Dr. Connell. History of hematuria previously, currently Oliguric UA is not available. This may need to be checked on a later date for clearing .hyperphosphatemia: Watch trend since its decreasing Problems: COMMENT/RELEVANT DATA Meds Current Medications Medications (Trade) Dose Ordered Sig/Shahab Start Time Stop Time Status Last Admin Dose Admin Acetaminophen (Tylenol) 650 mg PRN Q6HRS PRN 12/28/16 18:15 01/08/17 03:23 650 MG Albumin Human (Albuminar) 100 ml @ 100 mls/hr DAILY 01/08/17 17:00 01/10/17 16:59 DC 01/10/17 08:22 100 MLS/HR Albumin Human (Plasmanate) 500 ml @ 75 mls/hr Q6H40M 12/31/16 15:15 01/01/17 11:14 DC 01/01/17 03:44 75 MLS/HR Albuterol Sulfate (Ventolin Neb Soln) 2.5 mg PRN Q6HRS PRN 01/05/17 22:40 01/08/17 03:37 2.5 MG Albuterol/ Ipratropium (Duoneb) 3 ml RTQID 01/05/17 20:00 01/11/17 08:17 3 ML Budesonide (Pulmicort) 0.5 mg RTBID 01/05/17 20:00 01/11/17 08:18 0.5 MG Calcium Acetate (Phoslo) 1,334 mg TIDWMEALS 12/30/16 12:00 01/04/17 11:03 DC 01/04/17 09:46 1,334 MG Calcium Chloride/ Sodium Chloride (Iv Sodium Chloride 0.9% 100ml) 120 ml @ 240 mls/hr 1X ONCE 12/28/16 08:00 12/28/16 08:29 DC 12/28/16 08:54 240 MLS/HR Cefpodoxime Proxetil (Vantin) 200 mg BID 01/03/17 21:00 01/05/17 09:37 DC 01/05/17 08:53 200 MG Cetirizine HCl (Zyrtec) 10 mg PRN DAILY PRN 12/28/16 09:00 Cyanocobalamin (Vitamin B-12) 1,000 mcg QMONTH 01/04/17 09:00 01/04/17 09:49 1,000 MCG Diphenhydramine HCl (Benadryl) 25 mg 1X ONCE 12/27/16 08:15 12/27/16 08:22 DC 12/27/16 09:12 25 MG Fentanyl Citrate (Fentanyl 2ml Vial) 25 mcg PRN QID PRN 12/27/16 16:45 12/29/16 21:00 DC Furosemide (Lasix) 40 mg 1X ONCE 01/07/17 11:30 01/07/17 11:31 DC 01/07/17 11:50 40 MG Furosemide 40 mg 40 mg DAILY 01/08/17 09:00 01/10/17 08:21 40 MG Gabapentin (Neurontin) 300 mg DAILY 12/29/16 09:00 01/03/17 18:21 DC 01/03/17 09:06 300 MG Gabapentin 900 mg 900 mg TID 01/03/17 21:00 01/11/17 08:11 900 MG Heparin Sodium (Porcine) (Heparin Sodium) 2,800 unit 1X ONCE 01/10/17 12:30 01/10/17 12:31 DC 01/10/17 13:28 2,800 UNIT Heparin Sodium/ Dextrose 500 ml @ 0 mls/hr CONT PRN 01/02/17 14:45 01/08/17 15:48 DC 01/08/17 13:35 25.2 MLS/HR Heparin Sodium/ Sodium Chloride 60 unit 1X ONCE 01/10/17 12:30 01/10/17 12:31 DC 01/10/17 13:28 60 UNIT Info (Do NOT chart on this entry -- for MONITORING) 1 each PRN DAILY PRN 01/05/17 16:15 01/07/17 16:14 DC Info (PHARMACY MONITORING -- do not chart) 1 each PRN DAILY PRN 12/30/16 08:15 UNV Iohexol (Omnipaque 240 Mg/ml) 30 ml 1X ONCE 01/05/17 16:15 01/05/17 16:16 DC 01/05/17 15:45 30 ML Iohexol (Omnipaque 300 Mg/ml) 60 ml 1X ONCE 01/05/17 16:15 01/05/17 16:16 DC Lidocaine/Sodium Bicarbonate (Buffered Lidocaine 1%) 3 ml 1X ONCE 01/10/17 12:30 01/10/17 12:31 DC 01/10/17 13:27 3 ML Linezolid 300 ml @ 300 mls/hr Q12HR 12/28/16 09:00 12/31/16 10:43 DC 12/31/16 09:13 300 MLS/HR Lisinopril (Prinivil) 10 mg DAILY 12/28/16 09:00 12/28/16 09:00 DC Lorazepam (Ativan) 0.5 mg PRN Q4HRS PRN 12/31/16 09:00 01/08/17 12:50 0.5 MG Magnesium Sulfate/ Dextrose 50 ml @ 25 mls/hr PRN DAILY PRN 01/05/17 11:00 01/08/17 09:27 25 MLS/HR Magnesium Sulfate/ Dextrose (Magnesium Sulfate PREMIX 2GM) 50 ml @ 25 mls/hr PRN DAILY PRN 01/04/17 10:45 UNV Metoclopramide HCl 5 mg 5 mg PRN Q6HRS PRN 12/31/16 11:45 01/01/17 09:42 5 MG Micafungin Sodium 100 mg/Dextrose 100 ml @ 100 mls/hr Q24H 12/28/16 08:00 12/31/16 10:43 DC 12/31/16 09:13 100 MLS/HR Midazolam HCl (Versed) 2 mg STK-MED ONCE 12/28/16 09:41 12/28/16 09:42 DC Ondansetron HCl (Zofran) 8 mg PRN Q6HRS PRN 12/31/16 08:58 01/03/17 08:59 8 MG Oxycodone/ Acetaminophen (Percocet 5/325) 2 tab Q4HRS PRN 12/27/16 16:45 01/09/17 22:54 2 TAB Pantoprazole Sodium (Protonix) 40 mg DAILYAC 12/28/16 07:30 01/11/17 08:11 40 MG Paricalcitol (Zemplar) 5 mcg 3X/WEEK 12/31/16 09:00 01/04/17 11:03 DC 01/03/17 09:06 5 MCG Phytonadione (Vitamin K) 10 mg 1X ONCE 01/10/17 09:15 01/10/17 09:16 DC 01/10/17 09:42 10 MG Piperacillin Sod/ Tazobactam Sod (Zosyn Per Pharmacy) 1 each PRN DAILY PRN 12/27/16 17:30 12/28/16 07:27 DC Piperacillin Sod/ Tazobactam Sod 2.25 gm/Sodium Chloride 50 ml @ 100 mls/hr Q8HRS 12/28/16 14:00 01/03/17 13:01 DC 01/03/17 06:04 100 MLS/HR Piperacillin Sod/ Tazobactam Sod 3.375 gm/Sodium Chloride 50 ml @ 100 mls/hr 1X ONCE 12/27/16 18:00 12/27/16 18:29 DC 12/27/16 18:07 100 MLS/HR Potassium Chloride 20 meq 20 meq 1X ONCE 01/03/17 18:45 01/03/17 18:46 DC 01/03/17 18:56 20 MEQ Potassium Chloride 40 meq 40 meq 1X ONCE 01/02/17 13:15 01/02/17 13:16 DC 01/02/17 13:21 40 MEQ Potassium Chloride (KCl Premix 20meq) 50 ml @ 25 mls/hr Q2HR 01/05/17 16:00 01/05/17 19:59 DC 01/05/17 23:42 25 MLS/HR Potassium Chloride (Klor-Con) 40 meq 1X ONCE 01/01/17 12:00 01/01/17 12:01 DC 01/01/17 13:02 40 MEQ Prochlorperazine Edisylate (Compazine) 10 mg PRN Q6HRS PRN 01/01/17 11:45 01/01/17 17:38 10 MG Prochlorperazine Edisylate 10 mg 10 mg 1X ONCE 12/29/16 14:00 12/29/16 14:01 DC 12/29/16 14:00 10 MG Saliva Substitute (Biotene Moisturizing Mouth) 2 spray PRN Q15MIN PRN 12/28/16 13:15 12/31/16 17:53 2 SPRAY Sodium Bicarbonate 50 meq 50 meq Q2H 12/28/16 08:30 12/28/16 10:31 DC 12/28/16 15:33 50 MEQ Sodium Bicarbonate/ Dextrose 1,150 ml @ 100 mls/hr [id number] 12/28/16 09:00 12/30/16 08:59 DC 12/30/16 06:08 100 MLS/HR Sodium Chloride (Iv Sodium Chloride 0.9% 500ml Bag) 500 ml @ 500 mls/hr 1X ONCE 12/30/16 00:00 12/30/16 00:59 DC 12/30/16 00:05 500 MLS/HR Sodium Chloride (Iv Sodium Chloride 0.9% 1000ml Bag) 1,000 ml @ 75 mls/hr [id number] 01/03/17 18:45 01/04/17 11:04 DC 01/04/17 09:46 75 MLS/HR Sodium Chloride (Normal Saline Flush) 10 ml 1X PRN PRN 12/30/16 08:15 12/31/16 08:14 DC Tramadol HCl (Ultram) 50 mg PRN Q6HRS PRN 01/08/17 22:15 01/08/17 22:28 50 MG Vancomycin HCl 1.5 gm/Sodium Chloride 500 ml @ 250 mls/hr Q48H 12/29/16 20:00 12/29/16 20:00 DC Vancomycin HCl 1 each 1 each PRN DAILY PRN 12/27/16 17:30 12/27/16 18:51 DC 12/27/16 18:45 1 EACH Vancomycin HCl 2 gm/Sodium Chloride 500 ml @ 250 mls/hr 1X ONCE 12/27/16 17:45 12/27/16 18:51 DC Warfarin Sodium (Coumadin - No Dose Today) 1 each 1X WARF ONCE 01/03/17 16:00 01/03/17 23:01 DC Warfarin Sodium (Coumadin Per Pharmacy) 1 each PRN DAILY PRN 01/02/17 14:45 01/03/17 23:01 DC 01/03/17 11:34 1 EACH Warfarin Sodium (Coumadin) 4 mg DAILY16 01/04/17 17:00 01/09/17 08:15 DC 01/08/17 17:15 4 MG Warfarin Sodium 1 each 1 each PRN DAILY PRN 01/04/17 17:00 01/11/17 06:14 DC 01/10/17 15:26 1 EACH Lab Laboratory Tests Test 01/10/17 10:30 01/11/17 05:40 01/11/17 06:00 Urine Random Sodium 39mmol/L (Not Estab.) Sodium Level 137mmol/L (136-145) Potassium Level 4.3mmol/L (3.5-5.1) Chloride Level 103mmol/L (98-107) Carbon Dioxide Level 26mmol/L (21-32) Anion Gap 8 (6-14) Blood Urea Nitrogen 36mg/dL (7-20) Creatinine 2.3mg/dL (0.6-1.0) Estimated GFR (Cockcroft-Gault) 21.2 Glucose Level 97mg/dL (70-99) Calcium Level 7.8mg/dL (8.5-10.1) Phosphorus Level 5.0mg/dL (2.6-4.7) Magnesium Level 2.2mg/dL (1.8-2.4) Albumin 3.1g/dL (3.4-5.0) Prothrombin Time 17.6SEC (11.7-14.0) Prothromb Time International Ratio 1.5 (0.8-1.1) DAKOTA VINCENT MD January 11, 2017 09:15
--- NOTE | 2017-01-11 11:28 | PDOC ---
PULMONARY PROGRESS NOTES Subjective no soa Vitals Vital Signs Date Time Temp Pulse Resp B/P Pulse Ox O2 Delivery O2 Flow Rate FiO2 01/11/17 10:59 87 20 136/62 99 Nasal Cannula 4.0 01/11/17 07:20 98.0 98.0 General: Alert, No acute distress HEENT: Other Lungs: Other (decrease bs, wheezing bilaterally, on nasal cannula 4 L) Cardiovascular: S1, S2 Abdomen: Soft, Non-tender, Other (he) Neuro Exam: Alert Extremities: Other (2 EDEMA) Skin: Warm Labs Laboratory Tests Test 01/09/17 21:15 01/10/17 06:00 01/10/17 10:30 01/11/17 05:40 White Blood Count 10.7x10^3/uL (4.0-11.0) 13.2x10^3/uL (4.0-11.0) Red Blood Count 2.51x10^6/uL (3.50-5.40) 2.50x10^6/uL (3.50-5.40) Hemoglobin 8.0g/dL (12.0-15.5) 7.9g/dL (12.0-15.5) Hematocrit 23.9% (36.0-47.0) 23.9% (36.0-47.0) Mean Corpuscular Volume 95fL (79-100) 96fL (79-100) Mean Corpuscular Hemoglobin 32pg (25-35) 32pg (25-35) Mean Corpuscular Hemoglobin Concent 33g/dL (31-37) 33g/dL (31-37) Red Cell Distribution Width 16.6% (11.5-14.5) 16.8% (11.5-14.5) Platelet Count 382x10^3/uL (140-400) 431x10^3/uL (140-400) Neutrophils (%) (Auto) 19% (31-73) 21% (31-73) Lymphocytes (%) (Auto) 6% (24-48) 5% (24-48) Monocytes (%) (Auto) 75% (0-9) 73% (0-9) Eosinophils (%) (Auto) 0% (0-3) 0% (0-3) Basophils (%) (Auto) 0% (0-3) 0% (0-3) Neutrophils # (Auto) 2.0x10^3uL (1.8-7.7) 2.8x10^3uL (1.8-7.7) Lymphocytes # (Auto) 0.7x10^3/uL (1.0-4.8) 0.7x10^3/uL (1.0-4.8) Monocytes # (Auto) 8.0x10^3/uL (0.0-1.1) 9.6x10^3/uL (0.0-1.1) Eosinophils # (Auto) 0.0x10^3/uL (0.0-0.7) 0.0x10^3/uL (0.0-0.7) Basophils # (Auto) 0.0x10^3/uL (0.0-0.2) 0.0x10^3/uL (0.0-0.2) Segmented Neutrophils % 20% (35-66) Band Neutrophils % 4% (0-9) Lymphocytes % 6% (24-48) Monocytes % 65% (0-10) Metamyelocytes % 3% (0-0) Myelocytes % 2% (0-0) Platelet Estimate Adequate (ADEQUATE) Polychromasia Present Poikilocytosis Slight Anisocytosis Slight Ovalocytes Few Schistocytes Occ Prothrombin Time 22.3SEC (11.7-14.0) Prothromb Time International Ratio 2.1 (0.8-1.1) Sodium Level 138mmol/L (136-145) 137mmol/L (136-145) 137mmol/L (136-145) Potassium Level 4.6mmol/L (3.5-5.1) 4.6mmol/L (3.5-5.1) 4.3mmol/L (3.5-5.1) Chloride Level 103mmol/L (98-107) 103mmol/L (98-107) 103mmol/L (98-107) Carbon Dioxide Level 25mmol/L (21-32) 24mmol/L (21-32) 26mmol/L (21-32) Anion Gap 10 (6-14) 10 (6-14) 8 (6-14) Blood Urea Nitrogen 23mg/dL (7-20) 25mg/dL (7-20) 36mg/dL (7-20) Creatinine 2.0mg/dL (0.6-1.0) 2.3mg/dL (0.6-1.0) 2.3mg/dL (0.6-1.0) Estimated GFR (Cockcroft-Gault) 24.9 21.2 21.2 Glucose Level 112mg/dL (70-99) 118mg/dL (70-99) 97mg/dL (70-99) Calcium Level 7.8mg/dL (8.5-10.1) 8.0mg/dL (8.5-10.1) 7.8mg/dL (8.5-10.1) Phosphorus Level 5.9mg/dL (2.6-4.7) 5.0mg/dL (2.6-4.7) Magnesium Level 2.2mg/dL (1.8-2.4) 2.2mg/dL (1.8-2.4) Albumin 3.3g/dL (3.4-5.0) 3.1g/dL (3.4-5.0) Urine Random Sodium 39mmol/L (Not Estab.) Test 01/11/17 06:00 Prothrombin Time 17.6SEC (11.7-14.0) Prothromb Time International Ratio 1.5 (0.8-1.1) Laboratory Tests Test 01/11/17 05:40 01/11/17 06:00 Sodium Level 137mmol/L (136-145) Potassium Level 4.3mmol/L (3.5-5.1) Chloride Level 103mmol/L (98-107) Carbon Dioxide Level 26mmol/L (21-32) Anion Gap 8 (6-14) Blood Urea Nitrogen 36mg/dL (7-20) Creatinine 2.3mg/dL (0.6-1.0) Estimated GFR (Cockcroft-Gault) 21.2 Glucose Level 97mg/dL (70-99) Calcium Level 7.8mg/dL (8.5-10.1) Phosphorus Level 5.0mg/dL (2.6-4.7) Magnesium Level 2.2mg/dL (1.8-2.4) Albumin 3.1g/dL (3.4-5.0) Prothrombin Time 17.6SEC (11.7-14.0) Prothromb Time International Ratio 1.5 (0.8-1.1) Medications Active Scripts Medications Dose Route/Sig Days Date Category Gabapentin 300 Mg Capsule 900 Mg PO TID 01/03/17 Reported Claritin (Loratadine) 10 Mg Tablet 1 Tab PO DAILY PRN 11/22/16 Reported Bactrim 400-80 Mg Tablet (Sulfamethoxazole/Trimethoprim) 1 Each Tablet 1 Tab PO BID 11/22/16 Reported Gabapentin 300 Mg Capsule 300 Mg PO TID 11/22/16 Reported Zestril (Lisinopril) 10 Mg Tablet 10 Mg PO DAILY 11/22/16 Reported Cyanocobalamin Injection (Cyanocobalamin (Vitamin B-12)) 1,000 Mcg/1 Ml Vial 1,000 Mcg QMONTH 05/28/16 Reported Percocet 5-325 Mg Tablet (Oxycodone/Acetaminophen) 1 Each Tablet 1-2 Tab PO Q4-6HRS 05/28/16 Reported Prilosec Otc (Omeprazole Magnesium) 20 Mg Tablet.dr 20 Mg PO DAILY 05/28/16 Reported Impression . 1. Acute respiratory failure/distress, multifactorial, secondary to acute pulmonary edema. diastolic HF 2. Metastatic cholangiocarcinoma, status post recent chemotherapy, last received on 12/24/2016. 3. Acute renal failure, requiring hemodialysis, currently off of dialysis. 4. Acute blood loss anemia, status post transfusion. off AC 5. Right upper extremity deep venous thrombosis, diagnosed on 01/02/2017. off anticoagulation due to large retro-peritoneal bleed 6. Peripheral neuropathy. 7. Abnormal x-ray compatible with pulmonary edema. 8. Multiple other comorbidities. 9. Acute blood loss anemia Plan . REPEAT CXR MUCH IMPROVED HOLD ANTICOAGULANT TRANSFUSE PRN 1. We will continue Lasix ,monitor renal function closely 2. echocardiogram reviewed 3. improve nutritional status 4. P.r.n. nebulized treatments. 5. Continue other support 6. Correct electrolyte abnormalities. 7. p.r.n. BiPAP. d/w MIRIAN Mckeon MD January 11, 2017 11:28
--- NOTE | 2017-01-11 11:28 | PDOC ---
Subjective: Subjective: Onc f/u- cholangiocarcinoma Very fatigued Concerned about LE swelling, how long she may feel poorly if we have to wait for hematoma to resolve Appreciative that cancer is stable Objective: Vital Signs: Vital Signs Date Time Temp Pulse Resp B/P Pulse Ox O2 Delivery O2 Flow Rate FiO2 01/11/17 10:59 87 20 136/62 99 Nasal Cannula 4.0 01/11/17 07:20 98.0 98.0 Physical Exam: Extremities: Other (2+ edema bilateral LE edema) General: Alert, Oriented X3, Cooperative, No acute distress Lungs: Other (no respiratory distress) Psych/Mental Status: Mental status NL, Mood NL Skin: Other (no further erythema on her legs) Labs/Imaging: Cr 2.3, lytes stable INR 1.5 Assessment/Plan A/P: 1. Cholangiocarcinoma stage 4, stable for longtime on Gemzar/ Xeloda. Last treatment on 12/24/2016. CT 01/05/17 reveals stable disease with stable periportal LN 2.4 cm. Toxicity prompting admit likely gemzar- related (LE swelling, erythema, renal failure). Further tx on hold until over acute events, unclear what future tx options may be. Also followed at [facility]. Cancer now is not largest issue. 2. Acute renal failure, management per Dr. Kerr. Stable today, not planning HD currently. ? if worsened by recent hypotension, RP hematoma, CT contrast. 3. Hypoalbuminemia due to malnutrition from malignancy. Has worsened LE swelling. 4. Twitching - returning per . Will continue following Cr closely; previously improved with HD. 5. RUE DVT 01/02/17 complicated by 25 cm left retroperitoneal hematoma. Surgery following; Conservative mgt recommended. Anticoagulation on hold. DVT is asymptomatic. Vit K given 01/10, repeat today. No acute onc issues. D/w pt, , nurse, and Dr. Kerr that we will need to wait for acute issues to improve before considering if there are other tx options for her cancer in the future. Family upset by consideration of palliative care consult this weekend; wish to be very aggressive in her care. ИВАН HENDRICKS DO January 11, 2017 11:27
[2017-01-11] MEDS ORDERED: PHYTONADIONE (VIT K1) 10 MG in IV NORMAL SALINE 50ML 50 ML IV ONE (11:30)
--- NOTE | 2017-01-11 12:42 | PDOC ---
CARDIO Progress Notes Date and Time Date of Service 01/11/2017 Time of Evaluation 1030 Subjective Subjective: No Chest Pain, No shortness of breath, No Palpitations, No Dizziness, Other (Feels much better today) Vitals Vitals Vital Signs Date Time Temp Pulse Resp B/P Pulse Ox O2 Delivery O2 Flow Rate FiO2 01/11/17 10:59 87 20 136/62 99 Nasal Cannula 4.0 01/11/17 07:20 98.0 98.0 Weight Weight [ ] Input and Output Intake and Output Intake and Output 01/11/17 07:00 Intake Total 160 ml Output Total 310 ml Balance -150 ml Intake Oral 60 ml IV Total 100 ml Output Urine Total 310 ml Laboratory Labs Laboratory Tests Test 01/11/17 05:40 01/11/17 06:00 Sodium Level 137mmol/L (136-145) Potassium Level 4.3mmol/L (3.5-5.1) Chloride Level 103mmol/L (98-107) Carbon Dioxide Level 26mmol/L (21-32) Anion Gap 8 (6-14) Blood Urea Nitrogen 36mg/dL (7-20) Creatinine 2.3mg/dL (0.6-1.0) Estimated GFR (Cockcroft-Gault) 21.2 Glucose Level 97mg/dL (70-99) Calcium Level 7.8mg/dL (8.5-10.1) Phosphorus Level 5.0mg/dL (2.6-4.7) Magnesium Level 2.2mg/dL (1.8-2.4) Albumin 3.1g/dL (3.4-5.0) Prothrombin Time 17.6SEC (11.7-14.0) Prothromb Time International Ratio 1.5 (0.8-1.1) Fibrinogen 330mg/dL (200-440) Microbiology Micro Microbiology 12/27/16 Blood Culture - Final, Complete NO GROWTH AFTER 5 DAYS 12/31/16 Urine Culture - Final, Complete 12/31/16 Urine Culture Result 1 (MANE) - Final, Complete Review of Systems Constitutional: yes: alert, oriented, weakness Ears/Nose/Throat: Yes: no symptom reported Eyes: Yes: no symptom reported Pulmonary: Yes no symptom reported Cardiovascular: Yes no symptom reported Musculoskeletal: Yes: muscle stiffness Skin: Yes no symptom reported Psychiatric/Neurological: Yes: weakness Physical Exam HEENT: Neck Supple W Full Motion Chest: Symmetric LUNGS: Other (basilar crackles) Heart: S1S2, RRR (SR ), no murmurs Abdomen: Soft N/T, Other (obese) Extremities: Other (anasarca) Neurology: alert, oriented, follow commands Assessment Assessment 1. Acute diastolic CHF: multifactorial mainly from extracardiac issues. SOA much better. Vena cava syndrome? 2. Stage 4 cholangiocarcinoma/malignancy/malnutrition: Hemonc on board 3. Anemia with notable large left retroperitoneal hematoma: general surgery on board. Hgb at 7.9 post transfusion 4. ARTURO: HD on hold, Cr remains the same at 2.3. nephrology managing diuretics. 5. Anasarca 6. RIJ thrombus with Hx of PE/DVT: per PCP and vascular surgery. OAC on hold 7. HTN: controlled 8. Moderate pulmonary HTN Recommendations 1. TTE noted with normal wall motion, EF >70% and no significant valvular disease. Nephrology managing diuretics. 2. No significant ectopies. Will follow as needed. [employer]DY [employer] January 11, 2017 12:42
--- NOTE | 2017-01-11 12:44 | PDOC ---
PROGRESS NOTES Chief Complaint Chief Complaint CC: Chills, feeling cold -cellulitis bilaterally lower extremities -acute renal failure -cholangiocarcinoma -hypertension -peripheral neuropathy -DVT -PE -Cholecystectomy -hysterectomy -oophorectomy -salpingectomy -UTI -anxiety -skin cancer History of Present Illness History of Present Illness Ms. Bruno was in her chair today and accompanied by her . She and her report the pt feels some improvement and is producing slightly more urine. She still has intentional tremors in hands. reports pt still has some confusion. Pt doing well after having HD cath put in yesterday. Discussed with nurse about nephrology wanting to hold dialysis d/t improving creatine. Vitals Vitals Vital Signs Date Time Temp Pulse Resp B/P Pulse Ox O2 Delivery O2 Flow Rate FiO2 01/11/17 10:59 87 20 136/62 99 Nasal Cannula 4.0 01/11/17 07:20 98.0 98.0 Physical Exam General: Alert, Oriented X3, Cooperative, No acute distress Heart: Regular rate, Normal S1, Normal S2 Lungs: Other (decrease bs, wheezing bilaterally, on nasal cannula 4 L) Abdomen: Soft, Other (anasarca) Extremities: Other (2+ edema bilateral LE edema) Skin: Other (no further erythema on her legs) Labs LABS Laboratory Tests Test 01/11/17 05:40 01/11/17 06:00 Sodium Level 137mmol/L (136-145) Potassium Level 4.3mmol/L (3.5-5.1) Chloride Level 103mmol/L (98-107) Carbon Dioxide Level 26mmol/L (21-32) Anion Gap 8 (6-14) Blood Urea Nitrogen 36mg/dL (7-20) Creatinine 2.3mg/dL (0.6-1.0) Estimated GFR (Cockcroft-Gault) 21.2 Glucose Level 97mg/dL (70-99) Calcium Level 7.8mg/dL (8.5-10.1) Phosphorus Level 5.0mg/dL (2.6-4.7) Magnesium Level 2.2mg/dL (1.8-2.4) Albumin 3.1g/dL (3.4-5.0) Prothrombin Time 17.6SEC (11.7-14.0) Prothromb Time International Ratio 1.5 (0.8-1.1) Fibrinogen 330mg/dL (200-440) Review of Systems Review of Systems Denies Chest pain Denies SOA Denies N/V/D Assessment and Plan Assessmemt and Plan Problems Medical Problems: (1) Cellulitis Status: Acute Assessment Acute diastolic CHF: multifactorial mainly from extracardiac issues. SOA much better. 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 Hgb at 7.9 post transfusion ARTURO: HD on hold, Cr remains the same at 2.3. nephrology managing diuretics. Anasarca RIJ thrombus with Hx of PE/DVT: per PCP and vascular surgery. OAC on hold HTN: controlled Moderate pulmonary HTN Plan Subspecialty input appreciated Echo and CXR review - continue lasix and monitor renal function. Await repeat CXR per pulmonary Consult Dr. Hough to evaluate MS changes reported by Consult neuro for tremors Hold anticoagulant d/t hematoma - INR was at 1.5 Hgb at 7.9 - transfuse prn Hold dialysis per nephrology as Cr was improved at 2.3 Check labs in am Consult PT/OT Continue breathing treatments prn Problems: Comment Review of Relevant I have reviewed the following items ketty (where applicable) has been applied. Labs Laboratory Tests Test 01/09/17 21:15 01/10/17 06:00 01/10/17 10:30 01/11/17 05:40 White Blood Count 10.7x10^3/uL (4.0-11.0) 13.2x10^3/uL (4.0-11.0) Red Blood Count 2.51x10^6/uL (3.50-5.40) 2.50x10^6/uL (3.50-5.40) Hemoglobin 8.0g/dL (12.0-15.5) 7.9g/dL (12.0-15.5) Hematocrit 23.9% (36.0-47.0) 23.9% (36.0-47.0) Mean Corpuscular Volume 95fL (79-100) 96fL (79-100) Mean Corpuscular Hemoglobin 32pg (25-35) 32pg (25-35) Mean Corpuscular Hemoglobin Concent 33g/dL (31-37) 33g/dL (31-37) Red Cell Distribution Width 16.6% (11.5-14.5) 16.8% (11.5-14.5) Platelet Count 382x10^3/uL (140-400) 431x10^3/uL (140-400) Neutrophils (%) (Auto) 19% (31-73) 21% (31-73) Lymphocytes (%) (Auto) 6% (24-48) 5% (24-48) Monocytes (%) (Auto) 75% (0-9) 73% (0-9) Eosinophils (%) (Auto) 0% (0-3) 0% (0-3) Basophils (%) (Auto) 0% (0-3) 0% (0-3) Neutrophils # (Auto) 2.0x10^3uL (1.8-7.7) 2.8x10^3uL (1.8-7.7) Lymphocytes # (Auto) 0.7x10^3/uL (1.0-4.8) 0.7x10^3/uL (1.0-4.8) Monocytes # (Auto) 8.0x10^3/uL (0.0-1.1) 9.6x10^3/uL (0.0-1.1) Eosinophils # (Auto) 0.0x10^3/uL (0.0-0.7) 0.0x10^3/uL (0.0-0.7) Basophils # (Auto) 0.0x10^3/uL (0.0-0.2) 0.0x10^3/uL (0.0-0.2) Segmented Neutrophils % 20% (35-66) Band Neutrophils % 4% (0-9) Lymphocytes % 6% (24-48) Monocytes % 65% (0-10) Metamyelocytes % 3% (0-0) Myelocytes % 2% (0-0) Platelet Estimate Adequate (ADEQUATE) Polychromasia Present Poikilocytosis Slight Anisocytosis Slight Ovalocytes Few Schistocytes Occ Prothrombin Time 22.3SEC (11.7-14.0) Prothromb Time International Ratio 2.1 (0.8-1.1) Sodium Level 138mmol/L (136-145) 137mmol/L (136-145) 137mmol/L (136-145) Potassium Level 4.6mmol/L (3.5-5.1) 4.6mmol/L (3.5-5.1) 4.3mmol/L (3.5-5.1) Chloride Level 103mmol/L (98-107) 103mmol/L (98-107) 103mmol/L (98-107) Carbon Dioxide Level 25mmol/L (21-32) 24mmol/L (21-32) 26mmol/L (21-32) Anion Gap 10 (6-14) 10 (6-14) 8 (6-14) Blood Urea Nitrogen 23mg/dL (7-20) 25mg/dL (7-20) 36mg/dL (7-20) Creatinine 2.0mg/dL (0.6-1.0) 2.3mg/dL (0.6-1.0) 2.3mg/dL (0.6-1.0) Estimated GFR (Cockcroft-Gault) 24.9 21.2 21.2 Glucose Level 112mg/dL (70-99) 118mg/dL (70-99) 97mg/dL (70-99) Calcium Level 7.8mg/dL (8.5-10.1) 8.0mg/dL (8.5-10.1) 7.8mg/dL (8.5-10.1) Phosphorus Level 5.9mg/dL (2.6-4.7) 5.0mg/dL (2.6-4.7) Magnesium Level 2.2mg/dL (1.8-2.4) 2.2mg/dL (1.8-2.4) Albumin 3.3g/dL (3.4-5.0) 3.1g/dL (3.4-5.0) Urine Random Sodium 39mmol/L (Not Estab.) Test 01/11/17 06:00 Prothrombin Time 17.6SEC (11.7-14.0) Prothromb Time International Ratio 1.5 (0.8-1.1) Fibrinogen 330mg/dL (200-440) Laboratory Tests Test 01/11/17 05:40 01/11/17 06:00 Sodium Level 137mmol/L (136-145) Potassium Level 4.3mmol/L (3.5-5.1) Chloride Level 103mmol/L (98-107) Carbon Dioxide Level 26mmol/L (21-32) Anion Gap 8 (6-14) Blood Urea Nitrogen 36mg/dL (7-20) Creatinine 2.3mg/dL (0.6-1.0) Estimated GFR (Cockcroft-Gault) 21.2 Glucose Level 97mg/dL (70-99) Calcium Level 7.8mg/dL (8.5-10.1) Phosphorus Level 5.0mg/dL (2.6-4.7) Magnesium Level 2.2mg/dL (1.8-2.4) Albumin 3.1g/dL (3.4-5.0) Prothrombin Time 17.6SEC (11.7-14.0) Prothromb Time International Ratio 1.5 (0.8-1.1) Fibrinogen 330mg/dL (200-440) Microbiology 12/27/16 Blood Culture - Final, Complete NO GROWTH AFTER 5 DAYS 12/31/16 Urine Culture - Final, Complete 12/31/16 Urine Culture Result 1 (MANE) - Final, Complete Medications Current Medications Acetaminophen (Tylenol) 650 mg 1X ONCE PO Last administered on 12/27/16 09:11 ; Start 12/27/16 at 08:15; Stop 12/27/16 at 08:22; Status DC Diphenhydramine HCl (Benadryl) 25 mg 1X ONCE PO Last administered on 09:12; Start 12/27/16 at 08:15; Stop 12/27/16 at 08:22; Status DC Furosemide (Lasix) 20 mg 1X ONCE IVP ; Start 12/27/16 at 08:15; Stop 12/27/16 at 08:22; Status DC Fentanyl Citrate (Fentanyl 2ml Vial) 25 mcg PRN QID PRN IV PAIN; Start at 16:45; Stop 12/29/16 at 21:00; Status DC Lisinopril (Prinivil) 10 mg DAILY PO ; Start 12/28/16 at 09:00; Stop 12/28/16 at 09:00; Status DC Oxycodone/ Acetaminophen (Percocet 5/325) 1 tab Q4HRS PRN PO MILD/MODERATE PAIN Last administered on 01/09/17 01:27; Start 12/27/16 at 16:45 Gabapentin (Neurontin) 300 mg TID PO Last administered on 12/28/16 10:44; Start 12/27/16 at 21:00; Stop 12/28/16 at 15:23; Status DC Cetirizine HCl (Zyrtec) 10 mg PRN DAILY PRN PO ALLERGIES; Start 12/28/16 at 09: 00 Pantoprazole Sodium (Protonix) 40 mg DAILYAC PO Last administered on 01/11/17 08:11; Start 12/28/16 at 07:30 Oxycodone/ Acetaminophen 2 tab 2 tab Q4HRS PRN PO SEVERE PAIN Last administered on 01/09/17 22:54; Start 12/27/16 at 16:45 Sodium Chloride (Iv Sodium Chloride 0.9% 1000ml Bag) 1,000 ml @ 75 mls/hr [id number] IV Last administered on 12/28/16 07:12; Start 12/27/16 at 17:30; Stop 12/28/16 at 08:15; Status DC Piperacillin Sod/ Tazobactam Sod (Zosyn Per Pharmacy) 1 each PRN DAILY PRN MC SEE COMMENTS; Start 12/27/16 at 17:30; Stop 12/28/16 at 07:27; Status DC Vancomycin HCl 1 each 1 each PRN DAILY PRN MC SEE COMMENTS Last administered on 12/27/16 18:45; Start 12/27/16 at 17:30; Stop 12/27/16 at 18:51; Status DC Vancomycin HCl 2 gm/Sodium Chloride 500 ml @ 250 mls/hr 1X ONCE IV ; Start at 17:45; Stop 12/27/16 at 18:51; Status DC Piperacillin Sod/ Tazobactam Sod 3.375 gm/Sodium Chloride 50 ml @ 100 mls/hr 1X ONCE IV Last administered on 12/27/16 18:07; Start 12/27/16 at 18:00; Stop 12/27/16 at 18:29; Status DC Piperacillin Sod/ Tazobactam Sod 2.25 gm/Sodium Chloride 50 ml @ 100 mls/hr Q6HRS IV Last administered on 12/28/16 06:08; Start 12/28/16 at 00:00; Stop at 07:31; Status DC Vancomycin HCl 1.5 gm/Sodium Chloride 500 ml @ 250 mls/hr Q48H IV ; Start 12/29 at 20:00; Stop 12/29/16 at 20:00; Status DC Micafungin Sodium 100 mg/Dextrose 100 ml @ 100 mls/hr Q24H IV Last administered on 12/31/16 09:13; Start 12/28/16 at 08:00; Stop 12/31/16 at 10:43 ; Status DC Linezolid 300 ml @ 300 mls/hr Q12HR IV Last administered on 12/31/16 09:13; Start 12/28/16 at 09:00; Stop 12/31/16 at 10:43; Status DC Piperacillin Sod/ Tazobactam Sod 2.25 gm/Sodium Chloride 50 ml @ 100 mls/hr Q8HRS IV Last administered on 01/03/17 06:04; Start 12/28/16 at 14:00; Stop at 13:01; Status DC Calcium Chloride 2000 mg/Sodium Chloride 120 ml @ 240 mls/hr 1X ONCE IV Last administered on 12/28/16 08:54; Start 12/28/16 at 08:00; Stop 12/28/16 at 08:29 ; Status DC Magnesium Sulfate/ Dextrose (Magnesium Sulfate PREMIX 2GM) 50 ml @ 25 mls/hr PRN DAILY PRN IV for Mag < 1.7 on am labs Last administered on 01/04/17 09:50 ; Start 12/28/16 at 08:15; Stop 01/06/17 at 11:48; Status DC Sodium Bicarbonate 50 meq 50 meq Q2H IV Last administered on 12/28/16 15:33; Start 12/28/16 at 08:30; Stop 12/28/16 at 10:31; Status DC Sodium Chloride 500 ml @ 0 mls/hr PRN QID PRN IV UO< 30cc/hr over previous 6hrs ; Start 12/28/16 at 08:15; Stop 01/03/17 at 18:34; Status DC Sodium Bicarbonate/ Dextrose 1,150 ml @ 100 mls/hr [id number] IV Last administered on 12/30/16 06:08; Start 12/28/16 at 09:00; Stop 12/30/16 at 08:59 ; Status DC Heparin Sodium (Porcine) (Heparin Sodium) 10,000 unit STK-MED ONCE .ROUTE ; Start 12/28/16 at 08:46; Stop 12/28/16 at 08:47; Status DC Lidocaine/Sodium Bicarbonate 20 ml 20 ml STK-MED ONCE IJ ; Start 12/28/16 at 08: 47; Stop 12/28/16 at 08:48; Status DC Heparin Sodium/ Sodium Chloride 500 ml @ As Directed STK-MED ONCE .ROUTE ; Start 12/28/16 at 08:47; Stop 12/28/16 at 08:48; Status DC Lidocaine/Sodium Bicarbonate (Buffered Lidocaine 1%) 3 ml 1X ONCE IJ Last administered on 12/28/16 10:10; Start 12/28/16 at 09:00; Stop 12/28/16 at 09:01 ; Status DC Heparin Sodium/ Sodium Chloride 60 unit 1X ONCE IV Last administered on 10:11; Start 12/28/16 at 09:00; Stop 12/28/16 at 09:01; Status DC Heparin Sodium (Porcine) (Heparin Sodium) 2,500 unit 1X ONCE INT CAT Last administered on 12/28/16 10:10; Start 12/28/16 at 09:00; Stop 12/28/16 at 09:01 ; Status DC Midazolam HCl (Versed) 2 mg STK-MED ONCE .ROUTE ; Start 12/28/16 at 09:41; Stop 12/28/16 at 09:42; Status DC Saliva Substitute (Biotene Moisturizing Mouth) 2 spray PRN Q15MIN PRN PO DRY MOUTH Last administered on 12/31/16 17:53; Start 12/28/16 at 13:15 Gabapentin (Neurontin) 300 mg DAILY PO Last administered on 01/03/17 09:06; Start 12/29/16 at 09:00; Stop 01/03/17 at 18:21; Status DC Acetaminophen (Tylenol) 650 mg PRN Q6HRS PRN PO MILD PAIN Last administered on 01/08/17 03:23; Start 12/28/16 at 18:15 Ondansetron HCl (Zofran) 4 mg PRN Q6HRS PRN IV NAUSEA/VOMITING Last administered on 12/29/16 11:10; Start 12/29/16 at 10:45; Stop 12/29/16 at 13:53 ; Status DC Ondansetron HCl (Zofran) 8 mg PRN Q8HRS PRN IV NAUSEA/VOMITING Last administered on 12/31/16 03:35; Start 12/29/16 at 14:00; Stop 12/31/16 at 09:03 ; Status DC Prochlorperazine Edisylate 10 mg 10 mg 1X ONCE IV Last administered on 14:00; Start 12/29/16 at 14:00; Stop 12/29/16 at 14:01; Status DC Sodium Chloride 500 ml @ 500 mls/hr 1X ONCE IV Last administered on 23:20; Start 12/29/16 at 23:30; Stop 12/30/16 at 00:29; Status DC Sodium Chloride 500 ml @ 500 mls/hr 1X ONCE IV Last administered on 00:05; Start 12/30/16 at 00:00; Stop 12/30/16 at 00:59; Status DC Sodium Chloride 1,000 ml @ 1,000 mls/hr Q1H PRN IV hypotension; Start 12/30/16 at 08:03; Stop 12/30/16 at 14:02; Status DC Albumin Human (Albuminar) 200 ml @ 200 mls/hr 1X PRN PRN IV Hypotension Last administered on 12/30/16 09:22; Start 12/30/16 at 08:15; Stop 12/30/16 at 14:14 ; Status DC Sodium Chloride (Normal Saline Flush) 10 ml 1X PRN PRN IV AP catheter pack; Start 12/30/16 at 08:15; Stop 12/31/16 at 08:14; Status DC Sodium Chloride (Normal Saline Flush) 10 ml 1X PRN PRN IV MANAGER ELECTRONIC catheter pack; Start 12/30/16 at 08:15; Stop 12/31/16 at 08:14; Status DC Info (PHARMACY MONITORING -- do not chart) 1 each PRN DAILY PRN MC SEE COMMENTS ; Start 12/30/16 at 08:15; Stop 01/08/17 at 12:44; Status DC Info (PHARMACY MONITORING -- do not chart) 1 each PRN DAILY PRN MC SEE COMMENTS ; Start 12/30/16 at 08:15; Status UNV Paricalcitol (Zemplar) 5 mcg 3X/WEEK IV Last administered on 01/03/17 09:06; Start 12/31/16 at 09:00; Stop 01/04/17 at 11:03; Status DC Calcium Acetate 1334 mg 1,334 mg TIDWMEALS PO Last administered on 01/04/17 09 :46; Start 12/30/16 at 12:00; Stop 01/04/17 at 11:03; Status DC Albumin Human (Plasmanate) 500 ml @ 120 mls/hr Q4HRS IV Last administered on 16:45; Start 12/30/16 at 12:00; Stop 12/30/16 at 19:59; Status DC Ondansetron HCl (Zofran) 8 mg PRN Q6HRS PRN IV NAUSEA/VOMITING, 2ND CHOICE Last administered on 01/03/17 08:59; Start 12/31/16 at 08:58 Lorazepam (Ativan) 0.5 mg PRN Q4HRS PRN IV ANXIETY / AGITATION Last administered on 01/08/17 12:50; Start 12/31/16 at 09:00 Prochlorperazine Edisylate (Compazine) 10 mg PRN Q6HRS PRN IM NAUSEA/VOMITING Last administered on 12/31/16 09:15; Start 12/31/16 at 09:00; Stop 01/01/17 at 11:48; Status DC Metoclopramide HCl 5 mg 5 mg PRN Q6HRS PRN IV NAUSEA/VOMITING, 1ST CHOICE Last administered on 01/01/17 09:42; Start 12/31/16 at 11:45 Magnesium Sulfate/ Dextrose 50 ml @ 25 mls/hr 1X ONCE IV Last administered on 12/31/16 17:54; Start 12/31/16 at 15:00; Stop 12/31/16 at 16:59; Status DC Albumin Human (Plasmanate) 500 ml @ 75 mls/hr Q6H40M IV Last administered on 03:44; Start 12/31/16 at 15:15; Stop 01/01/17 at 11:14; Status DC Prochlorperazine Edisylate (Compazine) 10 mg PRN Q6HRS PRN IV NAUSEA/VOMITING, 3RD CHOICE Last administered on 01/01/17 17:38; Start 01/01/17 at 11:45 Potassium Chloride (Klor-Con) 40 meq 1X ONCE PO Last administered on 13:02; Start 01/01/17 at 12:00; Stop 01/01/17 at 12:01; Status DC Furosemide (Lasix) 40 mg 1X ONCE IVP Last administered on 01/01/17 14:24; Start 01/01/17 at 14:00; Stop 01/01/17 at 14:01; Status DC Albuterol/ Ipratropium (Duoneb) 3 ml PRN Q6HRS PRN NEB SHORTNESS OF BREATH Last administered on 01/05/17 11:26; Start 01/01/17 at 13:45; Stop 01/05/17 at 22:40; Status DC Furosemide (Lasix) 40 mg 1X ONCE IVP Last administered on 01/02/17 11:43; Start 01/02/17 at 10:45; Stop 01/02/17 at 10:46; Status DC Potassium Chloride 40 meq 40 meq 1X ONCE PO Last administered on 01/02/17 13: 21; Start 01/02/17 at 13:15; Stop 01/02/17 at 13:16; Status DC Heparin Sodium/ Dextrose 500 ml @ 0 mls/hr CONT PRN IV SEE I/O RECORD Last administered on 01/08/17 13:35; Start 01/02/17 at 14:45; Stop 01/08/17 at 15:48 ; Status DC Heparin Sodium (Porcine) (Heparin Sodium) 3,150 unit PRN Q6HRS PRN IV FOR UFH LEVEL LESS THAN 0.2; Start 01/02/17 at 14:45; Stop 01/08/17 at 15:48; Status DC Heparin Sodium (Porcine) (Heparin Sodium) 1,550 unit PRN Q6HRS PRN IV FOR UFH LEVEL 0.2 - 0.29; Start 01/02/17 at 14:45; Stop 01/08/17 at 15:48; Status DC Warfarin Sodium (Coumadin Per Pharmacy) 1 each PRN DAILY PRN MC PER PROTOCOL Last administered on 01/03/17 11:34; Start 01/02/17 at 14:45; Stop 01/03/17 at 23:01; Status DC Warfarin Sodium (Coumadin) 5 mg 1X WARF ONCE PO Last administered on 17:41; Start 01/02/17 at 16:00; Stop 01/02/17 at 16:01; Status DC Warfarin Sodium (Coumadin - No Dose Today) 1 each 1X WARF ONCE MC ; Start 01/03 at 16:00; Stop 01/03/17 at 23:01; Status DC Cefpodoxime Proxetil (Vantin) 200 mg BID PO Last administered on 01/05/17 08: 53; Start 01/03/17 at 21:00; Stop 01/05/17 at 09:37; Status DC Cyanocobalamin (Vitamin B-12) 1,000 mcg QMONTH IM Last administered on 09:49; Start 01/04/17 at 09:00 Gabapentin 900 mg 900 mg TID PO Last administered on 01/11/17 08:11; Start at 21:00 Sodium Chloride (Iv Sodium Chloride 0.9% 1000ml Bag) 1,000 ml @ 75 mls/hr [id number] IV Last administered on 01/04/17 09:46; Start 01/03/17 at 18:45; Stop 01/04/17 at 11:04; Status DC Potassium Chloride 20 meq 20 meq 1X ONCE PO Last administered on 01/03/17 18: 56; Start 01/03/17 at 18:45; Stop 01/03/17 at 18:46; Status DC Magnesium Sulfate/ Dextrose 50 ml @ 25 mls/hr PRN DAILY PRN IV for Mag < 1.7 on am labs; Start 01/04/17 at 10:45; Status UNV Potassium Chloride 50 ml @ 50 mls/hr PRN Q6HRS PRN IV For K < 3.7 Last administered on 01/05/17 13:10; Start 01/04/17 at 10:45 Potassium Chloride 50 ml @ 50 mls/hr PRN Q2HR PRN IV total of 40mEq for K < 3.5 Last administered on 01/04/17 13:46; Start 01/04/17 at 10:45 Albumin Human (Albuminar) 100 ml @ 100 mls/hr TID IV Last administered on 01/06 08:53; Start 01/04/17 at 14:00; Stop 01/06/17 at 09:59; Status DC Warfarin Sodium (Coumadin) 4 mg DAILY16 PO Last administered on 01/08/17 17:15 ; Start 01/04/17 at 17:00; Stop 01/09/17 at 08:15; Status DC Warfarin Sodium 1 each 1 each PRN DAILY PRN MC SEE COMMENTS Last administered on 01/10/17 15:26; Start 01/04/17 at 17:00; Stop 01/11/17 at 06:14; Status DC Magnesium Sulfate/ Dextrose 100 ml @ 100 mls/hr 1X ONCE IV Last administered on 01/05/17 11:35; Start 01/05/17 at 11:00; Stop 01/05/17 at 11:59; Status DC Magnesium Sulfate/ Dextrose 50 ml @ 25 mls/hr PRN DAILY PRN IV for Mag < 1.7 on am labs Last administered on 01/08/17 09:27; Start 01/05/17 at 11:00 Potassium Chloride (KCl Premix 20meq) 50 ml @ 25 mls/hr Q2HR IV Last administered on 01/05/17 23:42; Start 01/05/17 at 16:00; Stop 01/05/17 at 19:59 ; Status DC Iohexol (Omnipaque 300 Mg/ml) 60 ml 1X ONCE IV ; Start 01/05/17 at 16:15; Stop 01/05/17 at 16:16; Status DC Iohexol (Omnipaque 240 Mg/ml) 30 ml 1X ONCE PO Last administered on 01/05/17 15:45; Start 01/05/17 at 16:15; Stop 01/05/17 at 16:16; Status DC Info (Do NOT chart on this entry -- for MONITORING) 1 each PRN DAILY PRN MC SEE COMMENTS; Start 01/05/17 at 16:15; Stop 01/07/17 at 16:14; Status DC Albuterol/ Ipratropium (Duoneb) 3 ml RTQID NEB Last administered on 01/11/17 10 :56; Start 01/05/17 at 20:00 Budesonide (Pulmicort) 0.5 mg RTBID NEB Last administered on 01/11/17 08:18; Start 01/05/17 at 20:00 Furosemide (Lasix) 20 mg 1X ONCE IVP Last administered on 01/05/17 22:04; Start 01/05/17 at 22:00; Stop 01/05/17 at 22:01; Status DC Albuterol Sulfate (Ventolin Neb Soln) 2.5 mg PRN Q6HRS PRN NEB SHORTNESS OF BREATH Last administered on 01/08/17 03:37; Start 01/05/17 at 22:40 Furosemide (Lasix) 40 mg 1X ONCE IVP Last administered on 01/07/17 11:50; Start 01/07/17 at 11:30; Stop 01/07/17 at 11:31; Status DC Furosemide 40 mg 40 mg DAILY IVP Last administered on 01/10/17 08:21; Start at 09:00 Albumin Human (Albuminar) 100 ml @ 100 mls/hr DAILY IV Last administered on 08:22; Start 01/08/17 at 17:00; Stop 01/10/17 at 16:59; Status DC Tramadol HCl (Ultram) 50 mg PRN Q6HRS PRN PO MODERATE PAIN Last administered on 01/08/17 22:28; Start 01/08/17 at 22:15 Phytonadione (Vitamin K) 10 mg 1X ONCE SQ Last administered on 01/10/17 09:42 ; Start 01/10/17 at 09:15; Stop 01/10/17 at 09:16; Status DC Heparin Sodium (Porcine) (Heparin Sodium) 10,000 unit STK-MED ONCE .ROUTE ; Start 01/10/17 at 10:39; Stop 01/10/17 at 10:40; Status DC Lidocaine/Sodium Bicarbonate 20 ml 20 ml STK-MED ONCE IJ ; Start 01/10/17 at 10: 39; Stop 01/10/17 at 10:40; Status DC Heparin Sodium/ Sodium Chloride 500 ml @ As Directed STK-MED ONCE .ROUTE ; Start 01/10/17 at 10:39; Stop 01/10/17 at 10:40; Status DC Lidocaine/Sodium Bicarbonate (Buffered Lidocaine 1%) 3 ml 1X ONCE IJ Last administered on 01/10/17 13:27; Start 01/10/17 at 12:30; Stop 01/10/17 at 12:31; Status DC Heparin Sodium/ Sodium Chloride 60 unit 1X ONCE IV Last administered on 13:28; Start 01/10/17 at 12:30; Stop 01/10/17 at 12:31; Status DC Heparin Sodium (Porcine) 2800 unit 2,800 unit 1X ONCE INT CAT Last administered on 01/10/17 13:28; Start 01/10/17 at 12:30; Stop 01/10/17 at 12:31; Status DC Phytonadione/ Sodium Chloride (Vitamin K/Iv Sodium Chloride 0.9% 50ml) 51 ml @ 102 mls/hr 1X ONCE IV ; Start 01/11/17 at 11:30; Stop 01/11/17 at 11:59; Status DC Active Scripts Active Reported Gabapentin 300 Mg Capsule 900 Mg PO TID Claritin (Loratadine) 10 Mg Tablet 1 Tab PO DAILY PRN Bactrim 400-80 Mg Tablet (Sulfamethoxazole/Trimethoprim) 1 Each Tablet 1 Tab PO BID Gabapentin 300 Mg Capsule 300 Mg PO TID Zestril (Lisinopril) 10 Mg Tablet 10 Mg PO DAILY Cyanocobalamin Injection (Cyanocobalamin (Vitamin B-12)) 1,000 Mcg/1 Ml Vial 1, 000 Mcg QMONTH Percocet 5-325 Mg Tablet (Oxycodone/Acetaminophen) 1 Each Tablet 1-2 Tab PO Q4- 6HRS Prilosec Otc (Omeprazole Magnesium) 20 Mg Tablet.dr 20 Mg PO DAILY Vitals/I & O Vital Sign - Last 24 Hours 01/10/17 01/10/17 01/10/17 01/10/17 12:42 14:00 15:09 15:37 Temp 98.5 98.5 Pulse 102 102 Resp 18 20 B/P 142/57 157/66 Pulse Ox 93 93 98 O2 Delivery Nasal Cannula Nasal Cannula Nasal Cannula Nasal Cannula O2 Flow Rate 3.0 4.0 4.0 4.0 01/10/17 01/10/17 01/10/17/1/17 15:59 16:18 17:12 17:42 Pulse 101 101 101 Resp 18 20 18 B/P 133/58 138/55 123/60 Pulse Ox 96 97 96 95 O2 Delivery Nasal Cannula Nasal Cannula Nasal Cannula Nasal Cannula O2 Flow Rate 4.0 3.0 4.0 4.0 01/10/17 01/10/17 01/10/17 01/10/17 19:00 19:57 20:10 20:10 Temp 98.6 98.6 Pulse 98 98 Resp 24 20 B/P 119/51 143/62 Pulse Ox 95 95 100 O2 Delivery Nasal Cannula Nasal Cannula Nasal Cannula Nasal Cannula O2 Flow Rate 4.0 4.0 4.0 4.0 01/10/17 01/10/17 01/10/17 01/11/17 21:00 22:00 23:00 00:12 Temp 98.4 98.4 Pulse 96 96 96 95 Resp 14 16 16 18 B/P 141/59 124/53 135/63 122/55 Pulse Ox 94 95 94 95 O2 Delivery Nasal Cannula Nasal Cannula Nasal Cannula Nasal Cannula O2 Flow Rate 4.0 4.0 4.0 4.0 01/11/17 01/11/17 01/11/17 01/11/17 00:12 01:05 02:00 03:00 Pulse 95 101 89 Resp 14 18 14 B/P 109/49 156/68 139/57 Pulse Ox 95 94 96 O2 Delivery Nasal Cannula Nasal Cannula Nasal Cannula Nasal Cannula O2 Flow Rate 4.0 4.0 4.0 4.0 01/11/17 01/11/17 01/11/17 01/11/17 04:05 04:05 05:00 06:10 Temp 98.4 98.4 Pulse 94 93 90 Resp 16 16 B/P 148/66 146/67 134/64 Pulse Ox 96 94 96 O2 Delivery Nasal Cannula Nasal Cannula Nasal Cannula Nasal Cannula O2 Flow Rate 4.0 4.0 4.0 4.0 01/11/17 01/11/17 01/11/17 01/11/17 07:20 07:31 08:05 08:10 Temp 98.0 98.0 Pulse 90 Resp 18 B/P 138/67 Pulse Ox 98 98 98 O2 Delivery Nasal Cannula Nasal Cannula Nasal Cannula Nasal Cannula O2 Flow Rate 4.0 4.0 4.0 4.0 5/2/17 5/2/17 5/2/17 5/2/17 08:10 09:00 10:05 10:59 Pulse 88 85 85 87 Resp 20 22 20 20 B/P 118/53 131/69 128/60 136/62 Pulse Ox 100 99 98 99 O2 Delivery Nasal Cannula Nasal Cannula Nasal Cannula Nasal Cannula O2 Flow Rate 4.0 4.0 4.0 4.0 Intake and Output 01/10/17 01/10/17 01/11/17 15:00 23:00 07:00 Intake Total 100 ml 60 ml 0 ml Output Total 10 ml 300 ml Balance 100 ml 50 ml -300 ml DAMIEN HOPSON K III DO January 11, 2017 12:44
--- NOTE | 2017-01-11 17:24 | PDOC ---
PROGRESS NOTES Subjective Subjective the patient is sleeping quietly, arouses easily, tired and has L abdominal pain Objective Objective Vital Signs Date Time Temp Pulse Resp B/P Pulse Ox O2 Delivery O2 Flow Rate FiO2 01/11/17 16:10 88 16 148/65 99 Nasal Cannula 4.0 01/11/17 07:20 98.0 98.0 Intake and Output 01/11/17 07:00 Intake Total 160 ml Output Total 310 ml Balance -150 ml Intake Oral 60 ml IV Total 100 ml Output Urine Total 310 ml Physical Exam Abdomen: Soft (tender left side, no guarding) Extremities: No clubbing, No cyanosis General: Alert Lungs: Other (few coarse BS) Psych/Mental Status: Mental status NL Assessment Assessment Problems Medical Problems: (1) Cellulitis Status: Acute Plan Plan of Care Large L retroperitoneal hematoma, likely from anticoagulation; Heme/Onc reversing, and generally surgery not indicated; hematoma will resorb over time Comment Review of Relevant I have reviewed the following items ketty (where applicable) has been applied. Labs Laboratory Tests Test 01/09/17 21:15 01/10/17 06:00 01/10/17 10:30 01/11/17 05:40 White Blood Count 10.7x10^3/uL (4.0-11.0) 13.2x10^3/uL (4.0-11.0) Red Blood Count 2.51x10^6/uL (3.50-5.40) 2.50x10^6/uL (3.50-5.40) Hemoglobin 8.0g/dL (12.0-15.5) 7.9g/dL (12.0-15.5) Hematocrit 23.9% (36.0-47.0) 23.9% (36.0-47.0) Mean Corpuscular Volume 95fL (79-100) 96fL (79-100) Mean Corpuscular Hemoglobin 32pg (25-35) 32pg (25-35) Mean Corpuscular Hemoglobin Concent 33g/dL (31-37) 33g/dL (31-37) Red Cell Distribution Width 16.6% (11.5-14.5) 16.8% (11.5-14.5) Platelet Count 382x10^3/uL (140-400) 431x10^3/uL (140-400) Neutrophils (%) (Auto) 19% (31-73) 21% (31-73) Lymphocytes (%) (Auto) 6% (24-48) 5% (24-48) Monocytes (%) (Auto) 75% (0-9) 73% (0-9) Eosinophils (%) (Auto) 0% (0-3) 0% (0-3) Basophils (%) (Auto) 0% (0-3) 0% (0-3) Neutrophils # (Auto) 2.0x10^3uL (1.8-7.7) 2.8x10^3uL (1.8-7.7) Lymphocytes # (Auto) 0.7x10^3/uL (1.0-4.8) 0.7x10^3/uL (1.0-4.8) Monocytes # (Auto) 8.0x10^3/uL (0.0-1.1) 9.6x10^3/uL (0.0-1.1) Eosinophils # (Auto) 0.0x10^3/uL (0.0-0.7) 0.0x10^3/uL (0.0-0.7) Basophils # (Auto) 0.0x10^3/uL (0.0-0.2) 0.0x10^3/uL (0.0-0.2) Segmented Neutrophils % 20% (35-66) Band Neutrophils % 4% (0-9) Lymphocytes % 6% (24-48) Monocytes % 65% (0-10) Metamyelocytes % 3% (0-0) Myelocytes % 2% (0-0) Platelet Estimate Adequate (ADEQUATE) Polychromasia Present Poikilocytosis Slight Anisocytosis Slight Ovalocytes Few Schistocytes Occ Prothrombin Time 22.3SEC (11.7-14.0) Prothromb Time International Ratio 2.1 (0.8-1.1) Sodium Level 138mmol/L (136-145) 137mmol/L (136-145) 137mmol/L (136-145) Potassium Level 4.6mmol/L (3.5-5.1) 4.6mmol/L (3.5-5.1) 4.3mmol/L (3.5-5.1) Chloride Level 103mmol/L (98-107) 103mmol/L (98-107) 103mmol/L (98-107) Carbon Dioxide Level 25mmol/L (21-32) 24mmol/L (21-32) 26mmol/L (21-32) Anion Gap 10 (6-14) 10 (6-14) 8 (6-14) Blood Urea Nitrogen 23mg/dL (7-20) 25mg/dL (7-20) 36mg/dL (7-20) Creatinine 2.0mg/dL (0.6-1.0) 2.3mg/dL (0.6-1.0) 2.3mg/dL (0.6-1.0) Estimated GFR (Cockcroft-Gault) 24.9 21.2 21.2 Glucose Level 112mg/dL (70-99) 118mg/dL (70-99) 97mg/dL (70-99) Calcium Level 7.8mg/dL (8.5-10.1) 8.0mg/dL (8.5-10.1) 7.8mg/dL (8.5-10.1) Phosphorus Level 5.9mg/dL (2.6-4.7) 5.0mg/dL (2.6-4.7) Magnesium Level 2.2mg/dL (1.8-2.4) 2.2mg/dL (1.8-2.4) Albumin 3.3g/dL (3.4-5.0) 3.1g/dL (3.4-5.0) Urine Random Sodium 39mmol/L (Not Estab.) Test 01/11/17 06:00 Prothrombin Time 17.6SEC (11.7-14.0) Prothromb Time International Ratio 1.5 (0.8-1.1) Fibrinogen 330mg/dL (200-440) Laboratory Tests Test 01/11/17 05:40 01/11/17 06:00 Sodium Level 137mmol/L (136-145) Potassium Level 4.3mmol/L (3.5-5.1) Chloride Level 103mmol/L (98-107) Carbon Dioxide Level 26mmol/L (21-32) Anion Gap 8 (6-14) Blood Urea Nitrogen 36mg/dL (7-20) Creatinine 2.3mg/dL (0.6-1.0) Estimated GFR (Cockcroft-Gault) 21.2 Glucose Level 97mg/dL (70-99) Calcium Level 7.8mg/dL (8.5-10.1) Phosphorus Level 5.0mg/dL (2.6-4.7) Magnesium Level 2.2mg/dL (1.8-2.4) Albumin 3.1g/dL (3.4-5.0) Prothrombin Time 17.6SEC (11.7-14.0) Prothromb Time International Ratio 1.5 (0.8-1.1) Fibrinogen 330mg/dL (200-440) Microbiology 12/27/16 Blood Culture - Final, Complete NO GROWTH AFTER 5 DAYS 12/31/16 Urine Culture - Final, Complete 12/31/16 Urine Culture Result 1 (MANE) - Final, Complete Medications Current Medications Acetaminophen (Tylenol) 650 mg 1X ONCE PO Last administered on 12/27/16 09:11 ; Start 12/27/16 at 08:15; Stop 12/27/16 at 08:22; Status DC Diphenhydramine HCl (Benadryl) 25 mg 1X ONCE PO Last administered on 09:12; Start 12/27/16 at 08:15; Stop 12/27/16 at 08:22; Status DC Furosemide (Lasix) 20 mg 1X ONCE IVP ; Start 12/27/16 at 08:15; Stop 12/27/16 at 08:22; Status DC Fentanyl Citrate (Fentanyl 2ml Vial) 25 mcg PRN QID PRN IV PAIN; Start at 16:45; Stop 12/29/16 at 21:00; Status DC Lisinopril (Prinivil) 10 mg DAILY PO ; Start 12/28/16 at 09:00; Stop 12/28/16 at 09:00; Status DC Oxycodone/ Acetaminophen (Percocet 5/325) 1 tab Q4HRS PRN PO MILD/MODERATE PAIN Last administered on 01/09/17 01:27; Start 12/27/16 at 16:45 Gabapentin (Neurontin) 300 mg TID PO Last administered on 12/28/16 10:44; Start 12/27/16 at 21:00; Stop 12/28/16 at 15:23; Status DC Cetirizine HCl (Zyrtec) 10 mg PRN DAILY PRN PO ALLERGIES; Start 12/28/16 at 09: 00 Pantoprazole Sodium (Protonix) 40 mg DAILYAC PO Last administered on 01/11/17 08:11; Start 12/28/16 at 07:30 Oxycodone/ Acetaminophen 2 tab 2 tab Q4HRS PRN PO SEVERE PAIN Last administered on 01/09/17 22:54; Start 12/27/16 at 16:45 Sodium Chloride (Iv Sodium Chloride 0.9% 1000ml Bag) 1,000 ml @ 75 mls/hr [id number] IV Last administered on 12/28/16 07:12; Start 12/27/16 at 17:30; Stop 12/28/16 at 08:15; Status DC Piperacillin Sod/ Tazobactam Sod (Zosyn Per Pharmacy) 1 each PRN DAILY PRN MC SEE COMMENTS; Start 12/27/16 at 17:30; Stop 12/28/16 at 07:27; Status DC Vancomycin HCl 1 each 1 each PRN DAILY PRN MC SEE COMMENTS Last administered on 12/27/16 18:45; Start 12/27/16 at 17:30; Stop 12/27/16 at 18:51; Status DC Vancomycin HCl 2 gm/Sodium Chloride 500 ml @ 250 mls/hr 1X ONCE IV ; Start at 17:45; Stop 12/27/16 at 18:51; Status DC Piperacillin Sod/ Tazobactam Sod 3.375 gm/Sodium Chloride 50 ml @ 100 mls/hr 1X ONCE IV Last administered on 12/27/16 18:07; Start 12/27/16 at 18:00; Stop 12/27/16 at 18:29; Status DC Piperacillin Sod/ Tazobactam Sod 2.25 gm/Sodium Chloride 50 ml @ 100 mls/hr Q6HRS IV Last administered on 12/28/16 06:08; Start 12/28/16 at 00:00; Stop at 07:31; Status DC Vancomycin HCl 1.5 gm/Sodium Chloride 500 ml @ 250 mls/hr Q48H IV ; Start 12/29 at 20:00; Stop 12/29/16 at 20:00; Status DC Micafungin Sodium 100 mg/Dextrose 100 ml @ 100 mls/hr Q24H IV Last administered on 12/31/16 09:13; Start 12/28/16 at 08:00; Stop 12/31/16 at 10:43 ; Status DC Linezolid 300 ml @ 300 mls/hr Q12HR IV Last administered on 12/31/16 09:13; Start 12/28/16 at 09:00; Stop 12/31/16 at 10:43; Status DC Piperacillin Sod/ Tazobactam Sod 2.25 gm/Sodium Chloride 50 ml @ 100 mls/hr Q8HRS IV Last administered on 01/03/17 06:04; Start 12/28/16 at 14:00; Stop at 13:01; Status DC Calcium Chloride 2000 mg/Sodium Chloride 120 ml @ 240 mls/hr 1X ONCE IV Last administered on 12/28/16 08:54; Start 12/28/16 at 08:00; Stop 12/28/16 at 08:29 ; Status DC Magnesium Sulfate/ Dextrose (Magnesium Sulfate PREMIX 2GM) 50 ml @ 25 mls/hr PRN DAILY PRN IV for Mag < 1.7 on am labs Last administered on 01/04/17 09:50 ; Start 12/28/16 at 08:15; Stop 01/06/17 at 11:48; Status DC Sodium Bicarbonate 50 meq 50 meq Q2H IV Last administered on 12/28/16 15:33; Start 12/28/16 at 08:30; Stop 12/28/16 at 10:31; Status DC Sodium Chloride 500 ml @ 0 mls/hr PRN QID PRN IV UO< 30cc/hr over previous 6hrs ; Start 12/28/16 at 08:15; Stop 01/03/17 at 18:34; Status DC Sodium Bicarbonate/ Dextrose 1,150 ml @ 100 mls/hr [id number] IV Last administered on 12/30/16 06:08; Start 12/28/16 at 09:00; Stop 12/30/16 at 08:59 ; Status DC Heparin Sodium (Porcine) (Heparin Sodium) 10,000 unit STK-MED ONCE .ROUTE ; Start 12/28/16 at 08:46; Stop 12/28/16 at 08:47; Status DC Lidocaine/Sodium Bicarbonate 20 ml 20 ml STK-MED ONCE IJ ; Start 12/28/16 at 08: 47; Stop 12/28/16 at 08:48; Status DC Heparin Sodium/ Sodium Chloride 500 ml @ As Directed STK-MED ONCE .ROUTE ; Start 12/28/16 at 08:47; Stop 12/28/16 at 08:48; Status DC Lidocaine/Sodium Bicarbonate (Buffered Lidocaine 1%) 3 ml 1X ONCE IJ Last administered on 12/28/16 10:10; Start 12/28/16 at 09:00; Stop 12/28/16 at 09:01 ; Status DC Heparin Sodium/ Sodium Chloride 60 unit 1X ONCE IV Last administered on 10:11; Start 12/28/16 at 09:00; Stop 12/28/16 at 09:01; Status DC Heparin Sodium (Porcine) (Heparin Sodium) 2,500 unit 1X ONCE INT CAT Last administered on 12/28/16 10:10; Start 12/28/16 at 09:00; Stop 12/28/16 at 09:01 ; Status DC Midazolam HCl (Versed) 2 mg STK-MED ONCE .ROUTE ; Start 12/28/16 at 09:41; Stop 12/28/16 at 09:42; Status DC Saliva Substitute (Biotene Moisturizing Mouth) 2 spray PRN Q15MIN PRN PO DRY MOUTH Last administered on 12/31/16 17:53; Start 12/28/16 at 13:15 Gabapentin (Neurontin) 300 mg DAILY PO Last administered on 01/03/17 09:06; Start 12/29/16 at 09:00; Stop 01/03/17 at 18:21; Status DC Acetaminophen (Tylenol) 650 mg PRN Q6HRS PRN PO MILD PAIN Last administered on 01/08/17 03:23; Start 12/28/16 at 18:15 Ondansetron HCl (Zofran) 4 mg PRN Q6HRS PRN IV NAUSEA/VOMITING Last administered on 12/29/16 11:10; Start 12/29/16 at 10:45; Stop 12/29/16 at 13:53 ; Status DC Ondansetron HCl (Zofran) 8 mg PRN Q8HRS PRN IV NAUSEA/VOMITING Last administered on 12/31/16 03:35; Start 12/29/16 at 14:00; Stop 12/31/16 at 09:03 ; Status DC Prochlorperazine Edisylate 10 mg 10 mg 1X ONCE IV Last administered on 14:00; Start 12/29/16 at 14:00; Stop 12/29/16 at 14:01; Status DC Sodium Chloride 500 ml @ 500 mls/hr 1X ONCE IV Last administered on 23:20; Start 12/29/16 at 23:30; Stop 12/30/16 at 00:29; Status DC Sodium Chloride 500 ml @ 500 mls/hr 1X ONCE IV Last administered on 00:05; Start 12/30/16 at 00:00; Stop 12/30/16 at 00:59; Status DC Sodium Chloride 1,000 ml @ 1,000 mls/hr Q1H PRN IV hypotension; Start 12/30/16 at 08:03; Stop 12/30/16 at 14:02; Status DC Albumin Human (Albuminar) 200 ml @ 200 mls/hr 1X PRN PRN IV Hypotension Last administered on 12/30/16 09:22; Start 12/30/16 at 08:15; Stop 12/30/16 at 14:14 ; Status DC Sodium Chloride (Normal Saline Flush) 10 ml 1X PRN PRN IV AP catheter pack; Start 12/30/16 at 08:15; Stop 12/31/16 at 08:14; Status DC Sodium Chloride (Normal Saline Flush) 10 ml 1X PRN PRN IV [employer]IC[employer] catheter pack; Start 12/30/16 at 08:15; Stop 12/31/16 at 08:14; Status DC Info (PHARMACY MONITORING -- do not chart) 1 each PRN DAILY PRN MC SEE COMMENTS ; Start 12/30/16 at 08:15; Stop 01/08/17 at 12:44; Status DC Info (PHARMACY MONITORING -- do not chart) 1 each PRN DAILY PRN MC SEE COMMENTS ; Start 12/30/16 at 08:15; Status UNV Paricalcitol (Zemplar) 5 mcg 3X/WEEK IV Last administered on 01/03/17 09:06; Start 12/31/16 at 09:00; Stop 01/04/17 at 11:03; Status DC Calcium Acetate 1334 mg 1,334 mg TIDWMEALS PO Last administered on 01/04/17 09 :46; Start 12/30/16 at 12:00; Stop 01/04/17 at 11:03; Status DC Albumin Human (Plasmanate) 500 ml @ 120 mls/hr Q4HRS IV Last administered on 16:45; Start 12/30/16 at 12:00; Stop 12/30/16 at 19:59; Status DC Ondansetron HCl (Zofran) 8 mg PRN Q6HRS PRN IV NAUSEA/VOMITING, 2ND CHOICE Last administered on 01/03/17 08:59; Start 12/31/16 at 08:58 Lorazepam (Ativan) 0.5 mg PRN Q4HRS PRN IV ANXIETY / AGITATION Last administered on 01/08/17 12:50; Start 12/31/16 at 09:00 Prochlorperazine Edisylate (Compazine) 10 mg PRN Q6HRS PRN IM NAUSEA/VOMITING Last administered on 12/31/16 09:15; Start 12/31/16 at 09:00; Stop 01/01/17 at 11:48; Status DC Metoclopramide HCl 5 mg 5 mg PRN Q6HRS PRN IV NAUSEA/VOMITING, 1ST CHOICE Last administered on 01/01/17 09:42; Start 12/31/16 at 11:45 Magnesium Sulfate/ Dextrose 50 ml @ 25 mls/hr 1X ONCE IV Last administered on 12/31/16 17:54; Start 12/31/16 at 15:00; Stop 12/31/16 at 16:59; Status DC Albumin Human (Plasmanate) 500 ml @ 75 mls/hr Q6H40M IV Last administered on 03:44; Start 12/31/16 at 15:15; Stop 01/01/17 at 11:14; Status DC Prochlorperazine Edisylate (Compazine) 10 mg PRN Q6HRS PRN IV NAUSEA/VOMITING, 3RD CHOICE Last administered on 01/01/17 17:38; Start 01/01/17 at 11:45 Potassium Chloride (Klor-Con) 40 meq 1X ONCE PO Last administered on 13:02; Start 01/01/17 at 12:00; Stop 01/01/17 at 12:01; Status DC Furosemide (Lasix) 40 mg 1X ONCE IVP Last administered on 01/01/17 14:24; Start 01/01/17 at 14:00; Stop 01/01/17 at 14:01; Status DC Albuterol/ Ipratropium (Duoneb) 3 ml PRN Q6HRS PRN NEB SHORTNESS OF BREATH Last administered on 01/05/17 11:26; Start 01/01/17 at 13:45; Stop 01/05/17 at 22:40; Status DC Furosemide (Lasix) 40 mg 1X ONCE IVP Last administered on 01/02/17 11:43; Start 01/02/17 at 10:45; Stop 01/02/17 at 10:46; Status DC Potassium Chloride 40 meq 40 meq 1X ONCE PO Last administered on 01/02/17 13: 21; Start 01/02/17 at 13:15; Stop 01/02/17 at 13:16; Status DC Heparin Sodium/ Dextrose 500 ml @ 0 mls/hr CONT PRN IV SEE I/O RECORD Last administered on 01/08/17 13:35; Start 01/02/17 at 14:45; Stop 01/08/17 at 15:48 ; Status DC Heparin Sodium (Porcine) (Heparin Sodium) 3,150 unit PRN Q6HRS PRN IV FOR UFH LEVEL LESS THAN 0.2; Start 01/02/17 at 14:45; Stop 01/08/17 at 15:48; Status DC Heparin Sodium (Porcine) (Heparin Sodium) 1,550 unit PRN Q6HRS PRN IV FOR UFH LEVEL 0.2 - 0.29; Start 01/02/17 at 14:45; Stop 01/08/17 at 15:48; Status DC Warfarin Sodium (Coumadin Per Pharmacy) 1 each PRN DAILY PRN MC PER PROTOCOL Last administered on 01/03/17 11:34; Start 01/02/17 at 14:45; Stop 01/03/17 at 23:01; Status DC Warfarin Sodium (Coumadin) 5 mg 1X WARF ONCE PO Last administered on 17:41; Start 01/02/17 at 16:00; Stop 01/02/17 at 16:01; Status DC Warfarin Sodium (Coumadin - No Dose Today) 1 each 1X WARF ONCE MC ; Start 01/03 at 16:00; Stop 01/03/17 at 23:01; Status DC Cefpodoxime Proxetil (Vantin) 200 mg BID PO Last administered on 01/05/17 08: 53; Start 01/03/17 at 21:00; Stop 01/05/17 at 09:37; Status DC Cyanocobalamin (Vitamin B-12) 1,000 mcg QMONTH IM Last administered on 09:49; Start 01/04/17 at 09:00 Gabapentin 900 mg 900 mg TID PO Last administered on 01/11/17 14:22; Start at 21:00 Sodium Chloride (Iv Sodium Chloride 0.9% 1000ml Bag) 1,000 ml @ 75 mls/hr [id number] IV Last administered on 01/04/17 09:46; Start 01/03/17 at 18:45; Stop 01/04/17 at 11:04; Status DC Potassium Chloride 20 meq 20 meq 1X ONCE PO Last administered on 01/03/17 18: 56; Start 01/03/17 at 18:45; Stop 01/03/17 at 18:46; Status DC Magnesium Sulfate/ Dextrose 50 ml @ 25 mls/hr PRN DAILY PRN IV for Mag < 1.7 on am labs; Start 01/04/17 at 10:45; Status UNV Potassium Chloride 50 ml @ 50 mls/hr PRN Q6HRS PRN IV For K < 3.7 Last administered on 01/05/17 13:10; Start 01/04/17 at 10:45 Potassium Chloride 50 ml @ 50 mls/hr PRN Q2HR PRN IV total of 40mEq for K < 3.5 Last administered on 01/04/17 13:46; Start 01/04/17 at 10:45 Albumin Human (Albuminar) 100 ml @ 100 mls/hr TID IV Last administered on 01/06 08:53; Start 01/04/17 at 14:00; Stop 01/06/17 at 09:59; Status DC Warfarin Sodium (Coumadin) 4 mg DAILY16 PO Last administered on 01/08/17 17:15 ; Start 01/04/17 at 17:00; Stop 01/09/17 at 08:15; Status DC Warfarin Sodium 1 each 1 each PRN DAILY PRN MC SEE COMMENTS Last administered on 01/10/17 15:26; Start 01/04/17 at 17:00; Stop 01/11/17 at 06:14; Status DC Magnesium Sulfate/ Dextrose 100 ml @ 100 mls/hr 1X ONCE IV Last administered on 01/05/17 11:35; Start 01/05/17 at 11:00; Stop 01/05/17 at 11:59; Status DC Magnesium Sulfate/ Dextrose 50 ml @ 25 mls/hr PRN DAILY PRN IV for Mag < 1.7 on am labs Last administered on 01/08/17 09:27; Start 01/05/17 at 11:00 Potassium Chloride (KCl Premix 20meq) 50 ml @ 25 mls/hr Q2HR IV Last administered on 01/05/17 23:42; Start 01/05/17 at 16:00; Stop 01/05/17 at 19:59 ; Status DC Iohexol (Omnipaque 300 Mg/ml) 60 ml 1X ONCE IV ; Start 01/05/17 at 16:15; Stop 01/05/17 at 16:16; Status DC Iohexol (Omnipaque 240 Mg/ml) 30 ml 1X ONCE PO Last administered on 01/05/17 15:45; Start 01/05/17 at 16:15; Stop 01/05/17 at 16:16; Status DC Info (Do NOT chart on this entry -- for MONITORING) 1 each PRN DAILY PRN MC SEE COMMENTS; Start 01/05/17 at 16:15; Stop 01/07/17 at 16:14; Status DC Albuterol/ Ipratropium (Duoneb) 3 ml RTQID NEB Last administered on 01/11/17 15 :17; Start 01/05/17 at 20:00 Budesonide (Pulmicort) 0.5 mg RTBID NEB Last administered on 01/11/17 08:18; Start 01/05/17 at 20:00 Furosemide (Lasix) 20 mg 1X ONCE IVP Last administered on 01/05/17 22:04; Start 01/05/17 at 22:00; Stop 01/05/17 at 22:01; Status DC Albuterol Sulfate (Ventolin Neb Soln) 2.5 mg PRN Q6HRS PRN NEB SHORTNESS OF BREATH Last administered on 01/08/17 03:37; Start 01/05/17 at 22:40 Furosemide (Lasix) 40 mg 1X ONCE IVP Last administered on 01/07/17 11:50; Start 01/07/17 at 11:30; Stop 01/07/17 at 11:31; Status DC Furosemide 40 mg 40 mg DAILY IVP Last administered on 01/10/17 08:21; Start at 09:00 Albumin Human (Albuminar) 100 ml @ 100 mls/hr DAILY IV Last administered on 08:22; Start 01/08/17 at 17:00; Stop 01/10/17 at 16:59; Status DC Tramadol HCl (Ultram) 50 mg PRN Q6HRS PRN PO MODERATE PAIN Last administered on 01/08/17 22:28; Start 01/08/17 at 22:15 Phytonadione (Vitamin K) 10 mg 1X ONCE SQ Last administered on 01/10/17 09:42 ; Start 01/10/17 at 09:15; Stop 01/10/17 at 09:16; Status DC Heparin Sodium (Porcine) (Heparin Sodium) 10,000 unit STK-MED ONCE .ROUTE ; Start 01/10/17 at 10:39; Stop 01/10/17 at 10:40; Status DC Lidocaine/Sodium Bicarbonate 20 ml 20 ml STK-MED ONCE IJ ; Start 01/10/17 at 10: 39; Stop 01/10/17 at 10:40; Status DC Heparin Sodium/ Sodium Chloride 500 ml @ As Directed STK-MED ONCE .ROUTE ; Start 01/10/17 at 10:39; Stop 01/10/17 at 10:40; Status DC Lidocaine/Sodium Bicarbonate (Buffered Lidocaine 1%) 3 ml 1X ONCE IJ Last administered on 01/10/17 13:27; Start 01/10/17 at 12:30; Stop 01/10/17 at 12:31; Status DC Heparin Sodium/ Sodium Chloride 60 unit 1X ONCE IV Last administered on 13:28; Start 01/10/17 at 12:30; Stop 01/10/17 at 12:31; Status DC Heparin Sodium (Porcine) 2800 unit 2,800 unit 1X ONCE INT CAT Last administered on 01/10/17 13:28; Start 01/10/17 at 12:30; Stop 01/10/17 at 12:31; Status DC Phytonadione/ Sodium Chloride (Vitamin K/Iv Sodium Chloride 0.9% 50ml) 51 ml @ 102 mls/hr 1X ONCE IV Last administered on 01/11/17 14:22; Start 01/11/17 at 11 :30; Stop 01/11/17 at 11:59; Status DC Active Scripts Active Reported Gabapentin 300 Mg Capsule 900 Mg PO TID Claritin (Loratadine) 10 Mg Tablet 1 Tab PO DAILY PRN Bactrim 400-80 Mg Tablet (Sulfamethoxazole/Trimethoprim) 1 Each Tablet 1 Tab PO BID Gabapentin 300 Mg Capsule 300 Mg PO TID Zestril (Lisinopril) 10 Mg Tablet 10 Mg PO DAILY Cyanocobalamin Injection (Cyanocobalamin (Vitamin B-12)) 1,000 Mcg/1 Ml Vial 1, 000 Mcg QMONTH Percocet 5-325 Mg Tablet (Oxycodone/Acetaminophen) 1 Each Tablet 1-2 Tab PO Q4- 6HRS Prilosec Otc (Omeprazole Magnesium) 20 Mg Tablet.dr 20 Mg PO DAILY Vitals/I & O Vital Sign - Last 24 Hours 01/10/17 01/10/17 01/10/17 01/10/17 17:42 19:00 19:57 20:10 Pulse 101 98 Resp 18 24 B/P 123/60 119/51 Pulse Ox 95 95 95 O2 Delivery Nasal Cannula Nasal Cannula Nasal Cannula Nasal Cannula O2 Flow Rate 4.0 4.0 4.0 4.0 01/10/17 01/10/17 01/10/17 01/10/17 20:10 21:00 22:00 23:00 Temp 98.6 98.6 Pulse 98 96 96 96 Resp 20 14 16 16 B/P 143/62 141/59 124/53 135/63 Pulse Ox 100 94 95 94 O2 Delivery Nasal Cannula Nasal Cannula Nasal Cannula Nasal Cannula O2 Flow Rate 4.0 4.0 4.0 4.0 01/11/17 01/11/17 01/11/17 01/11/17 00:12 00:12 01:05 02:00 Temp 98.4 98.4 Pulse 95 95 101 Resp 18 18 B/P 122/55 109/49 156/68 Pulse Ox 95 95 94 O2 Delivery Nasal Cannula Nasal Cannula Nasal Cannula Nasal Cannula O2 Flow Rate 4.0 4.0 4.0 4.0 01/11/17 01/11/17 01/11/17 01/11/17 03:00 04:05 04:05 05:00 Temp 98.4 98.4 Pulse 89 94 93 Resp 14 16 B/P 139/57 148/66 146/67 Pulse Ox 96 96 94 O2 Delivery Nasal Cannula Nasal Cannula Nasal Cannula Nasal Cannula O2 Flow Rate 4.0 4.0 4.0 4.0 01/11/17 01/11/17 01/11/17 01/11/17 06:10 07:20 07:31 08:05 Temp 98.0 98.0 Pulse 90 90 Resp 16 18 B/P 134/64 138/67 Pulse Ox 96 98 98 O2 Delivery Nasal Cannula Nasal Cannula Nasal Cannula Nasal Cannula O2 Flow Rate 4.0 4.0 4.0 4.0 01/11/17 01/11/17 01/11/17 01/11/17 08:10 08:10 09:00 10:05 Pulse 88 85 85 Resp 20 22 20 B/P 118/53 131/69 128/60 Pulse Ox 98 100 99 98 O2 Delivery Nasal Cannula Nasal Cannula Nasal Cannula Nasal Cannula O2 Flow Rate 4.0 4.0 4.0 4.0 01/11/17 01/11/17 01/11/17 01/11/17 10:54 10:59 15:18 15:28 Pulse 87 90 Resp 20 22 B/P 136/62 154/67 Pulse Ox 96 99 98 99 O2 Delivery Nasal Cannula Nasal Cannula Nasal Cannula Nasal Cannula O2 Flow Rate 4.0 4.0 4.0 4.0 01/11/17 16:10 Pulse 88 Resp 16 B/P 148/65 Pulse Ox 99 O2 Delivery Nasal Cannula O2 Flow Rate 4.0 Intake and Output 01/10/17 01/10/17 01/11/17 15:00 23:00 07:00 Intake Total 100 ml 60 ml 0 ml Output Total 10 ml 300 ml Balance 100 ml 50 ml -300 ml PEREZ GROSS MD January 11, 2017 17:24
[2017-01-11] MEDS: oxyCODONE/APAP 5/325 1 TAB TABLET PO PRN (21:50)
[2017-01-12] VITALS (18 sets, daily range): BP systolic 131–153; BP diastolic 57–72
[2017-01-12 05:37] LABS: ALBUMIN 3.1 g/dL (3.4-5.0); CALCIUM 7.8 mg/dL (8.5-10.1); CREATININE 1.6 mg/dL (0.6-1.0); GFR 32.2; PHOSPHORUS 3.9 mg/dL (2.6-4.7); POTASSIUM 4.5 mmol/L (3.5-5.1)
[2017-01-12 05:43] LABS: INR 1.2 (0.8-1.1); PROTHROMBIN TIME PATIENT 14.6 SEC (11.7-14.0)
[2017-01-12] MEDS: PANTOPRAZOLE 40 MG TABLET.DR. PO SCH (08:03)
[2017-01-12] MEDS: GABAPENTIN 300 MG CAPSULE. PO SCH (08:03)
[2017-01-12] MEDS: FUROSEMIDE 40 MG/4 ML VIAL. IVP SCH (08:04)
[2017-01-12] MEDS: IPRATRPIUM/ALBUTEROL 0.5/2.5MG 3 ML NEBU. NEB SCH ×4 (08:23→20:00)
[2017-01-12] MEDS: BUDESONIDE 0.5 MG/2 ML NEBU. NEB SCH ×2 (08:23→20:00)
--- NOTE | 2017-01-12 11:09 | PDOC ---
PROGRESS NOTES Chief Complaint Chief Complaint CC: -cellulitis bilaterally lower extremities -acute renal failure -cholangiocarcinoma -hypertension -peripheral neuropathy -DVT -PE -Cholecystectomy -hysterectomy -oophorectomy -salpingectomy -UTI -anxiety -skin cancer History of Present Illness History of Present Illness Chills, feeling cold lethargic, some hand weakness occasionally in bed and lethargic slightly more urine. She still has intentional tremors in hands. reports pt still has some confusion. Pt doing well after having HD cath put in yesterday. Discussed with nurse about nephrology wanting to hold dialysis d/t improving creatine. Vitals Vitals Vital Signs Date Time Temp Pulse Resp B/P Pulse Ox O2 Delivery O2 Flow Rate FiO2 01/12/17 08:24 97 Nasal Cannula 4.0 01/12/17 06:18 80 12 148/61 01/11/17 19:00 98.1 98.1 Physical Exam General: Alert, Oriented X3, mild distress Heart: Regular rate, Normal S1, Normal S2 Lungs: Other (decrease bs, wheezing bilaterally, on nasal cannula 4 L) Abdomen: Soft (tender left side, no guarding) Extremities: No clubbing, No cyanosis Skin: Other (no further erythema on her legs) Labs LABS Laboratory Tests Test 01/12/17 05:14 01/12/17 10:10 Prothrombin Time 14.6SEC (11.7-14.0) Prothromb Time International Ratio 1.2 (0.8-1.1) Sodium Level 139mmol/L (136-145) Potassium Level 4.5mmol/L (3.5-5.1) Chloride Level 104mmol/L (98-107) Carbon Dioxide Level 27mmol/L (21-32) Anion Gap 8 (6-14) Blood Urea Nitrogen 34mg/dL (7-20) Creatinine 1.6mg/dL (0.6-1.0) Estimated GFR (Cockcroft-Gault) 32.2 Glucose Level 93mg/dL (70-99) Calcium Level 7.8mg/dL (8.5-10.1) Phosphorus Level 3.9mg/dL (2.6-4.7) Albumin 3.1g/dL (3.4-5.0) Ammonia 25mcmol/L (11-34) Review of Systems Review of Systems lethargy hand weakness Assessment and Plan Assessmemt and Plan consult wound care back off on pain meds screen for select, LTAC Problems Medical Problems: (1) Cellulitis Status: Acute Problems: Comment Review of Relevant I have reviewed the following items ketty (where applicable) has been applied. Labs Laboratory Tests Test 01/11/17 05:40 01/11/17 06:00 01/12/17 05:14 01/12/17 10:10 Sodium Level 137mmol/L (136-145) 139mmol/L (136-145) Potassium Level 4.3mmol/L (3.5-5.1) 4.5mmol/L (3.5-5.1) Chloride Level 103mmol/L (98-107) 104mmol/L (98-107) Carbon Dioxide Level 26mmol/L (21-32) 27mmol/L (21-32) Anion Gap 8 (6-14) 8 (6-14) Blood Urea Nitrogen 36mg/dL (7-20) 34mg/dL (7-20) Creatinine 2.3mg/dL (0.6-1.0) 1.6mg/dL (0.6-1.0) Estimated GFR (Cockcroft-Gault) 21.2 32.2 Glucose Level 97mg/dL (70-99) 93mg/dL (70-99) Calcium Level 7.8mg/dL (8.5-10.1) 7.8mg/dL (8.5-10.1) Phosphorus Level 5.0mg/dL (2.6-4.7) 3.9mg/dL (2.6-4.7) Magnesium Level 2.2mg/dL (1.8-2.4) Albumin 3.1g/dL (3.4-5.0) 3.1g/dL (3.4-5.0) Prothrombin Time 17.6SEC (11.7-14.0) 14.6SEC (11.7-14.0) Prothromb Time International Ratio 1.5 (0.8-1.1) 1.2 (0.8-1.1) Fibrinogen 330mg/dL (200-440) Ammonia 25mcmol/L (11-34) Laboratory Tests Test 01/12/17 05:14 01/12/17 10:10 Prothrombin Time 14.6SEC (11.7-14.0) Prothromb Time International Ratio 1.2 (0.8-1.1) Sodium Level 139mmol/L (136-145) Potassium Level 4.5mmol/L (3.5-5.1) Chloride Level 104mmol/L (98-107) Carbon Dioxide Level 27mmol/L (21-32) Anion Gap 8 (6-14) Blood Urea Nitrogen 34mg/dL (7-20) Creatinine 1.6mg/dL (0.6-1.0) Estimated GFR (Cockcroft-Gault) 32.2 Glucose Level 93mg/dL (70-99) Calcium Level 7.8mg/dL (8.5-10.1) Phosphorus Level 3.9mg/dL (2.6-4.7) Albumin 3.1g/dL (3.4-5.0) Ammonia 25mcmol/L (11-34) Microbiology 12/27/16 Blood Culture - Final, Complete NO GROWTH AFTER 5 DAYS 12/31/16 Urine Culture - Final, Complete 12/31/16 Urine Culture Result 1 (MANE) - Final, Complete Medications Current Medications Acetaminophen (Tylenol) 650 mg 1X ONCE PO Last administered on 12/27/16 09:11 ; Start 12/27/16 at 08:15; Stop 12/27/16 at 08:22; Status DC Diphenhydramine HCl (Benadryl) 25 mg 1X ONCE PO Last administered on 09:12; Start 12/27/16 at 08:15; Stop 12/27/16 at 08:22; Status DC Furosemide (Lasix) 20 mg 1X ONCE IVP ; Start 12/27/16 at 08:15; Stop 12/27/16 at 08:22; Status DC Fentanyl Citrate (Fentanyl 2ml Vial) 25 mcg PRN QID PRN IV PAIN; Start at 16:45; Stop 12/29/16 at 21:00; Status DC Lisinopril (Prinivil) 10 mg DAILY PO ; Start 12/28/16 at 09:00; Stop 12/28/16 at 09:00; Status DC Oxycodone/ Acetaminophen (Percocet 5/325) 1 tab Q4HRS PRN PO MILD/MODERATE PAIN Last administered on 01/09/17 01:27; Start 12/27/16 at 16:45 Gabapentin (Neurontin) 300 mg TID PO Last administered on 12/28/16 10:44; Start 12/27/16 at 21:00; Stop 12/28/16 at 15:23; Status DC Cetirizine HCl (Zyrtec) 10 mg PRN DAILY PRN PO ALLERGIES; Start 12/28/16 at 09: 00 Pantoprazole Sodium (Protonix) 40 mg DAILYAC PO Last administered on 01/12/17 08:03; Start 12/28/16 at 07:30 Oxycodone/ Acetaminophen 2 tab 2 tab Q4HRS PRN PO SEVERE PAIN Last administered on 01/11/17 21:50; Start 12/27/16 at 16:45 Sodium Chloride (Iv Sodium Chloride 0.9% 1000ml Bag) 1,000 ml @ 75 mls/hr [id number] IV Last administered on 12/28/16 07:12; Start 12/27/16 at 17:30; Stop 12/28/16 at 08:15; Status DC Piperacillin Sod/ Tazobactam Sod (Zosyn Per Pharmacy) 1 each PRN DAILY PRN MC SEE COMMENTS; Start 12/27/16 at 17:30; Stop 12/28/16 at 07:27; Status DC Vancomycin HCl 1 each 1 each PRN DAILY PRN MC SEE COMMENTS Last administered on 12/27/16 18:45; Start 12/27/16 at 17:30; Stop 12/27/16 at 18:51; Status DC Vancomycin HCl 2 gm/Sodium Chloride 500 ml @ 250 mls/hr 1X ONCE IV ; Start at 17:45; Stop 12/27/16 at 18:51; Status DC Piperacillin Sod/ Tazobactam Sod 3.375 gm/Sodium Chloride 50 ml @ 100 mls/hr 1X ONCE IV Last administered on 12/27/16 18:07; Start 12/27/16 at 18:00; Stop 12/27/16 at 18:29; Status DC Piperacillin Sod/ Tazobactam Sod 2.25 gm/Sodium Chloride 50 ml @ 100 mls/hr Q6HRS IV Last administered on 12/28/16 06:08; Start 12/28/16 at 00:00; Stop at 07:31; Status DC Vancomycin HCl 1.5 gm/Sodium Chloride 500 ml @ 250 mls/hr Q48H IV ; Start 12/29 at 20:00; Stop 12/29/16 at 20:00; Status DC Micafungin Sodium 100 mg/Dextrose 100 ml @ 100 mls/hr Q24H IV Last administered on 12/31/16 09:13; Start 12/28/16 at 08:00; Stop 12/31/16 at 10:43 ; Status DC Linezolid 300 ml @ 300 mls/hr Q12HR IV Last administered on 12/31/16 09:13; Start 12/28/16 at 09:00; Stop 12/31/16 at 10:43; Status DC Piperacillin Sod/ Tazobactam Sod 2.25 gm/Sodium Chloride 50 ml @ 100 mls/hr Q8HRS IV Last administered on 01/03/17 06:04; Start 12/28/16 at 14:00; Stop at 13:01; Status DC Calcium Chloride 2000 mg/Sodium Chloride 120 ml @ 240 mls/hr 1X ONCE IV Last administered on 12/28/16 08:54; Start 12/28/16 at 08:00; Stop 12/28/16 at 08:29 ; Status DC Magnesium Sulfate/ Dextrose (Magnesium Sulfate PREMIX 2GM) 50 ml @ 25 mls/hr PRN DAILY PRN IV for Mag < 1.7 on am labs Last administered on 01/04/17 09:50 ; Start 12/28/16 at 08:15; Stop 01/06/17 at 11:48; Status DC Sodium Bicarbonate 50 meq 50 meq Q2H IV Last administered on 12/28/16 15:33; Start 12/28/16 at 08:30; Stop 12/28/16 at 10:31; Status DC Sodium Chloride 500 ml @ 0 mls/hr PRN QID PRN IV UO< 30cc/hr over previous 6hrs ; Start 12/28/16 at 08:15; Stop 01/03/17 at 18:34; Status DC Sodium Bicarbonate/ Dextrose 1,150 ml @ 100 mls/hr [id number] IV Last administered on 12/30/16 06:08; Start 12/28/16 at 09:00; Stop 12/30/16 at 08:59 ; Status DC Heparin Sodium (Porcine) (Heparin Sodium) 10,000 unit STK-MED ONCE .ROUTE ; Start 12/28/16 at 08:46; Stop 12/28/16 at 08:47; Status DC Lidocaine/Sodium Bicarbonate 20 ml 20 ml STK-MED ONCE IJ ; Start 12/28/16 at 08: 47; Stop 12/28/16 at 08:48; Status DC Heparin Sodium/ Sodium Chloride 500 ml @ As Directed STK-MED ONCE .ROUTE ; Start 12/28/16 at 08:47; Stop 12/28/16 at 08:48; Status DC Lidocaine/Sodium Bicarbonate (Buffered Lidocaine 1%) 3 ml 1X ONCE IJ Last administered on 12/28/16 10:10; Start 12/28/16 at 09:00; Stop 12/28/16 at 09:01 ; Status DC Heparin Sodium/ Sodium Chloride 60 unit 1X ONCE IV Last administered on 10:11; Start 12/28/16 at 09:00; Stop 12/28/16 at 09:01; Status DC Heparin Sodium (Porcine) (Heparin Sodium) 2,500 unit 1X ONCE INT CAT Last administered on 12/28/16 10:10; Start 12/28/16 at 09:00; Stop 12/28/16 at 09:01 ; Status DC Midazolam HCl (Versed) 2 mg STK-MED ONCE .ROUTE ; Start 12/28/16 at 09:41; Stop 12/28/16 at 09:42; Status DC Saliva Substitute (Biotene Moisturizing Mouth) 2 spray PRN Q15MIN PRN PO DRY MOUTH Last administered on 12/31/16 17:53; Start 12/28/16 at 13:15 Gabapentin (Neurontin) 300 mg DAILY PO Last administered on 01/03/17 09:06; Start 12/29/16 at 09:00; Stop 01/03/17 at 18:21; Status DC Acetaminophen (Tylenol) 650 mg PRN Q6HRS PRN PO MILD PAIN Last administered on 01/08/17 03:23; Start 12/28/16 at 18:15 Ondansetron HCl (Zofran) 4 mg PRN Q6HRS PRN IV NAUSEA/VOMITING Last administered on 12/29/16 11:10; Start 12/29/16 at 10:45; Stop 12/29/16 at 13:53 ; Status DC Ondansetron HCl (Zofran) 8 mg PRN Q8HRS PRN IV NAUSEA/VOMITING Last administered on 12/31/16 03:35; Start 12/29/16 at 14:00; Stop 12/31/16 at 09:03 ; Status DC Prochlorperazine Edisylate 10 mg 10 mg 1X ONCE IV Last administered on 14:00; Start 12/29/16 at 14:00; Stop 12/29/16 at 14:01; Status DC Sodium Chloride 500 ml @ 500 mls/hr 1X ONCE IV Last administered on 23:20; Start 12/29/16 at 23:30; Stop 12/30/16 at 00:29; Status DC Sodium Chloride 500 ml @ 500 mls/hr 1X ONCE IV Last administered on 00:05; Start 12/30/16 at 00:00; Stop 12/30/16 at 00:59; Status DC Sodium Chloride 1,000 ml @ 1,000 mls/hr Q1H PRN IV hypotension; Start 12/30/16 at 08:03; Stop 12/30/16 at 14:02; Status DC Albumin Human (Albuminar) 200 ml @ 200 mls/hr 1X PRN PRN IV Hypotension Last administered on 12/30/16 09:22; Start 12/30/16 at 08:15; Stop 12/30/16 at 14:14 ; Status DC Sodium Chloride (Normal Saline Flush) 10 ml 1X PRN PRN IV AP catheter pack; Start 12/30/16 at 08:15; Stop 12/31/16 at 08:14; Status DC Sodium Chloride (Normal Saline Flush) 10 ml 1X PRN PRN IV BACK HANGER catheter pack; Start 12/30/16 at 08:15; Stop 12/31/16 at 08:14; Status DC Info (PHARMACY MONITORING -- do not chart) 1 each PRN DAILY PRN MC SEE COMMENTS ; Start 12/30/16 at 08:15; Stop 01/08/17 at 12:44; Status DC Info (PHARMACY MONITORING -- do not chart) 1 each PRN DAILY PRN MC SEE COMMENTS ; Start 12/30/16 at 08:15; Status UNV Paricalcitol (Zemplar) 5 mcg 3X/WEEK IV Last administered on 01/03/17 09:06; Start 12/31/16 at 09:00; Stop 01/04/17 at 11:03; Status DC Calcium Acetate 1334 mg 1,334 mg TIDWMEALS PO Last administered on 01/04/17 09 :46; Start 12/30/16 at 12:00; Stop 01/04/17 at 11:03; Status DC Albumin Human (Plasmanate) 500 ml @ 120 mls/hr Q4HRS IV Last administered on 16:45; Start 12/30/16 at 12:00; Stop 12/30/16 at 19:59; Status DC Ondansetron HCl (Zofran) 8 mg PRN Q6HRS PRN IV NAUSEA/VOMITING, 2ND CHOICE Last administered on 01/03/17 08:59; Start 12/31/16 at 08:58 Lorazepam (Ativan) 0.5 mg PRN Q4HRS PRN IV ANXIETY / AGITATION Last administered on 01/08/17 12:50; Start 12/31/16 at 09:00 Prochlorperazine Edisylate (Compazine) 10 mg PRN Q6HRS PRN IM NAUSEA/VOMITING Last administered on 12/31/16 09:15; Start 12/31/16 at 09:00; Stop 01/01/17 at 11:48; Status DC Metoclopramide HCl 5 mg 5 mg PRN Q6HRS PRN IV NAUSEA/VOMITING, 1ST CHOICE Last administered on 01/01/17 09:42; Start 12/31/16 at 11:45 Magnesium Sulfate/ Dextrose 50 ml @ 25 mls/hr 1X ONCE IV Last administered on 12/31/16 17:54; Start 12/31/16 at 15:00; Stop 12/31/16 at 16:59; Status DC Albumin Human (Plasmanate) 500 ml @ 75 mls/hr Q6H40M IV Last administered on 03:44; Start 12/31/16 at 15:15; Stop 01/01/17 at 11:14; Status DC Prochlorperazine Edisylate (Compazine) 10 mg PRN Q6HRS PRN IV NAUSEA/VOMITING, 3RD CHOICE Last administered on 01/01/17 17:38; Start 01/01/17 at 11:45 Potassium Chloride (Klor-Con) 40 meq 1X ONCE PO Last administered on 13:02; Start 01/01/17 at 12:00; Stop 01/01/17 at 12:01; Status DC Furosemide (Lasix) 40 mg 1X ONCE IVP Last administered on 01/01/17 14:24; Start 01/01/17 at 14:00; Stop 01/01/17 at 14:01; Status DC Albuterol/ Ipratropium (Duoneb) 3 ml PRN Q6HRS PRN NEB SHORTNESS OF BREATH Last administered on 01/05/17 11:26; Start 01/01/17 at 13:45; Stop 01/05/17 at 22:40; Status DC Furosemide (Lasix) 40 mg 1X ONCE IVP Last administered on 01/02/17 11:43; Start 01/02/17 at 10:45; Stop 01/02/17 at 10:46; Status DC Potassium Chloride 40 meq 40 meq 1X ONCE PO Last administered on 01/02/17 13: 21; Start 01/02/17 at 13:15; Stop 01/02/17 at 13:16; Status DC Heparin Sodium/ Dextrose 500 ml @ 0 mls/hr CONT PRN IV SEE I/O RECORD Last administered on 01/08/17 13:35; Start 01/02/17 at 14:45; Stop 01/08/17 at 15:48 ; Status DC Heparin Sodium (Porcine) (Heparin Sodium) 3,150 unit PRN Q6HRS PRN IV FOR UFH LEVEL LESS THAN 0.2; Start 01/02/17 at 14:45; Stop 01/08/17 at 15:48; Status DC Heparin Sodium (Porcine) (Heparin Sodium) 1,550 unit PRN Q6HRS PRN IV FOR UFH LEVEL 0.2 - 0.29; Start 01/02/17 at 14:45; Stop 01/08/17 at 15:48; Status DC Warfarin Sodium (Coumadin Per Pharmacy) 1 each PRN DAILY PRN MC PER PROTOCOL Last administered on 01/03/17 11:34; Start 01/02/17 at 14:45; Stop 01/03/17 at 23:01; Status DC Warfarin Sodium (Coumadin) 5 mg 1X WARF ONCE PO Last administered on 17:41; Start 01/02/17 at 16:00; Stop 01/02/17 at 16:01; Status DC Warfarin Sodium (Coumadin - No Dose Today) 1 each 1X WARF ONCE MC ; Start 01/03 at 16:00; Stop 01/03/17 at 23:01; Status DC Cefpodoxime Proxetil (Vantin) 200 mg BID PO Last administered on 01/05/17 08: 53; Start 01/03/17 at 21:00; Stop 01/05/17 at 09:37; Status DC Cyanocobalamin (Vitamin B-12) 1,000 mcg QMONTH IM Last administered on 09:49; Start 01/04/17 at 09:00 Gabapentin 900 mg 900 mg TID PO Last administered on 01/12/17 08:03; Start at 21:00 Sodium Chloride (Iv Sodium Chloride 0.9% 1000ml Bag) 1,000 ml @ 75 mls/hr [id number] IV Last administered on 01/04/17 09:46; Start 01/03/17 at 18:45; Stop 01/04/17 at 11:04; Status DC Potassium Chloride 20 meq 20 meq 1X ONCE PO Last administered on 01/03/17 18: 56; Start 01/03/17 at 18:45; Stop 01/03/17 at 18:46; Status DC Magnesium Sulfate/ Dextrose 50 ml @ 25 mls/hr PRN DAILY PRN IV for Mag < 1.7 on am labs; Start 01/04/17 at 10:45; Status UNV Potassium Chloride 50 ml @ 50 mls/hr PRN Q6HRS PRN IV For K < 3.7 Last administered on 01/05/17 13:10; Start 01/04/17 at 10:45 Potassium Chloride 50 ml @ 50 mls/hr PRN Q2HR PRN IV total of 40mEq for K < 3.5 Last administered on 01/04/17 13:46; Start 01/04/17 at 10:45 Albumin Human (Albuminar) 100 ml @ 100 mls/hr TID IV Last administered on 01/06 08:53; Start 01/04/17 at 14:00; Stop 01/06/17 at 09:59; Status DC Warfarin Sodium (Coumadin) 4 mg DAILY16 PO Last administered on 01/08/17 17:15 ; Start 01/04/17 at 17:00; Stop 01/09/17 at 08:15; Status DC Warfarin Sodium 1 each 1 each PRN DAILY PRN MC SEE COMMENTS Last administered on 01/10/17 15:26; Start 01/04/17 at 17:00; Stop 01/11/17 at 06:14; Status DC Magnesium Sulfate/ Dextrose 100 ml @ 100 mls/hr 1X ONCE IV Last administered on 01/05/17 11:35; Start 01/05/17 at 11:00; Stop 01/05/17 at 11:59; Status DC Magnesium Sulfate/ Dextrose 50 ml @ 25 mls/hr PRN DAILY PRN IV for Mag < 1.7 on am labs Last administered on 01/08/17 09:27; Start 01/05/17 at 11:00 Potassium Chloride (KCl Premix 20meq) 50 ml @ 25 mls/hr Q2HR IV Last administered on 01/05/17 23:42; Start 01/05/17 at 16:00; Stop 01/05/17 at 19:59 ; Status DC Iohexol (Omnipaque 300 Mg/ml) 60 ml 1X ONCE IV ; Start 01/05/17 at 16:15; Stop 01/05/17 at 16:16; Status DC Iohexol (Omnipaque 240 Mg/ml) 30 ml 1X ONCE PO Last administered on 01/05/17 15:45; Start 01/05/17 at 16:15; Stop 01/05/17 at 16:16; Status DC Info (Do NOT chart on this entry -- for MONITORING) 1 each PRN DAILY PRN MC SEE COMMENTS; Start 01/05/17 at 16:15; Stop 01/07/17 at 16:14; Status DC Albuterol/ Ipratropium (Duoneb) 3 ml RTQID NEB Last administered on 01/12/17 08 :23; Start 01/05/17 at 20:00 Budesonide (Pulmicort) 0.5 mg RTBID NEB Last administered on 01/12/17 08:23; Start 01/05/17 at 20:00 Furosemide (Lasix) 20 mg 1X ONCE IVP Last administered on 01/05/17 22:04; Start 01/05/17 at 22:00; Stop 01/05/17 at 22:01; Status DC Albuterol Sulfate (Ventolin Neb Soln) 2.5 mg PRN Q6HRS PRN NEB SHORTNESS OF BREATH Last administered on 01/08/17 03:37; Start 01/05/17 at 22:40 Furosemide (Lasix) 40 mg 1X ONCE IVP Last administered on 01/07/17 11:50; Start 01/07/17 at 11:30; Stop 01/07/17 at 11:31; Status DC Furosemide 40 mg 40 mg DAILY IVP Last administered on 01/12/17 08:04; Start at 09:00 Albumin Human (Albuminar) 100 ml @ 100 mls/hr DAILY IV Last administered on 08:22; Start 01/08/17 at 17:00; Stop 01/10/17 at 16:59; Status DC Tramadol HCl (Ultram) 50 mg PRN Q6HRS PRN PO MODERATE PAIN Last administered on 01/08/17 22:28; Start 01/08/17 at 22:15 Phytonadione (Vitamin K) 10 mg 1X ONCE SQ Last administered on 01/10/17 09:42 ; Start 01/10/17 at 09:15; Stop 01/10/17 at 09:16; Status DC Heparin Sodium (Porcine) (Heparin Sodium) 10,000 unit STK-MED ONCE .ROUTE ; Start 01/10/17 at 10:39; Stop 01/10/17 at 10:40; Status DC Lidocaine/Sodium Bicarbonate 20 ml 20 ml STK-MED ONCE IJ ; Start 01/10/17 at 10: 39; Stop 01/10/17 at 10:40; Status DC Heparin Sodium/ Sodium Chloride 500 ml @ As Directed STK-MED ONCE .ROUTE ; Start 01/10/17 at 10:39; Stop 01/10/17 at 10:40; Status DC Lidocaine/Sodium Bicarbonate (Buffered Lidocaine 1%) 3 ml 1X ONCE IJ Last administered on 01/10/17 13:27; Start 01/10/17 at 12:30; Stop 01/10/17 at 12:31; Status DC Heparin Sodium/ Sodium Chloride 60 unit 1X ONCE IV Last administered on 13:28; Start 01/10/17 at 12:30; Stop 01/10/17 at 12:31; Status DC Heparin Sodium (Porcine) 2800 unit 2,800 unit 1X ONCE INT CAT Last administered on 01/10/17 13:28; Start 01/10/17 at 12:30; Stop 01/10/17 at 12:31; Status DC Phytonadione/ Sodium Chloride (Vitamin K/Iv Sodium Chloride 0.9% 50ml) 51 ml @ 102 mls/hr 1X ONCE IV Last administered on 01/11/17 14:22; Start 01/11/17 at 11 :30; Stop 01/11/17 at 11:59; Status DC Active Scripts Active Reported Gabapentin 300 Mg Capsule 900 Mg PO TID Claritin (Loratadine) 10 Mg Tablet 1 Tab PO DAILY PRN Bactrim 400-80 Mg Tablet (Sulfamethoxazole/Trimethoprim) 1 Each Tablet 1 Tab PO BID Gabapentin 300 Mg Capsule 300 Mg PO TID Zestril (Lisinopril) 10 Mg Tablet 10 Mg PO DAILY Cyanocobalamin Injection (Cyanocobalamin (Vitamin B-12)) 1,000 Mcg/1 Ml Vial 1, 000 Mcg QMONTH Percocet 5-325 Mg Tablet (Oxycodone/Acetaminophen) 1 Each Tablet 1-2 Tab PO Q4- 6HRS Prilosec Otc (Omeprazole Magnesium) 20 Mg Tablet.dr 20 Mg PO DAILY Vitals/I & O Vital Sign - Last 24 Hours 01/11/17 01/11/17 01/11/17 01/11/17 15:18 15:28 16:10 17:00 Pulse 90 88 86 Resp 22 16 20 B/P 154/67 148/65 139/58 Pulse Ox 98 99 99 100 O2 Delivery Nasal Cannula Nasal Cannula Nasal Cannula Nasal Cannula O2 Flow Rate 4.0 4.0 4.0 4.0 5/2/17 5/2/17 5/2/17 5/2/17 18:00 19:00 19:22 19:35 Temp 98.1 98.1 Pulse 88 86 Resp 16 20 B/P 152/65 143/63 Pulse Ox 98 98 98 O2 Delivery Nasal Cannula Nasal Cannula Nasal Cannula Nasal Cannula O2 Flow Rate 4.0 4.0 4.0 4.0 01/11/17 5/17 5/2/17 5/17 20:00 21:00 21:50 22:00 Pulse 83 83 88 Resp 16 18 18 18 B/P 152/66 148/68 113/63 Pulse Ox 98 99 99 98 O2 Delivery Nasal Cannula Nasal Cannula Nasal Cannula Nasal Cannula O2 Flow Rate 4.0 4.0 4.0 4.0 01/11/17 01/11/17 01/12/17 01/12/17 22:50 23:00 00:00 01:12 Pulse 92 88 81 Resp 20 18 18 18 B/P 152/71 142/66 146/68 Pulse Ox 98 96 98 99 O2 Delivery Nasal Cannula Nasal Cannula Nasal Cannula Nasal Cannula O2 Flow Rate 4.0 4.0 4.0 4.0 17 01/12/17 5/17 17 02:12 03:07 04:00 05:00 Pulse 81 80 82 80 Resp 18 16 12 16 B/P 131/58 131/59 144/70 150/65 Pulse Ox 97 96 99 96 O2 Delivery Nasal Cannula Nasal Cannula Nasal Cannula Nasal Cannula O2 Flow Rate 4.0 4.0 4.0 4.0 01/12/17 17 06:18 08:24 Pulse 80 Resp 12 B/P 148/61 Pulse Ox 97 97 O2 Delivery Nasal Cannula Nasal Cannula O2 Flow Rate 4.0 4.0 Intake and Output 17 01/11/17 17 15:00 23:00 07:00 Intake Total 150 ml 100 ml Output Total 700 ml 600 ml Balance -550 ml -500 ml SERGEY KNOWLES MD January 12, 2017 11:09
--- NOTE | 2017-01-12 11:45 | PDOC ---
SUBJECTIVE ROS VIDHI Doing and feeling better now - Now OOB too CVS: no Orthopnea, no CP RESP: no SOB, no SEGUNDO GI: + Nausea, no Vomiting; apetite improving some : no Dysuria, no Urgency OBJECTIVE Vital Signs Vital Signs Date Time Temp Pulse Resp B/P Pulse Ox O2 Delivery O2 Flow Rate FiO2 01/12/17 08:24 97 Nasal Cannula 4.0 01/12/17 06:18 80 12 148/61 01/11/17 19:00 98.1 98.1 I & 0 Intake and Output 01/12/17 07:00 Intake Total 250 ml Output Total 1300 ml Balance -1050 ml Intake Oral 250 ml Output Urine Total 1300 ml PHYSICAL EXAM Physical Exam GEN: Awake, Oriented x 3, In no distress EYES: Vision Unchanged, Conjunctiva Normal EN: No EN Drainage, Mucous Membranes moist NECK: no JVD, no JVP, Supple, no Thyromegaly CVS: S1S2, no Murmur, No Gallop, No Rub,+ Edema RESP: ? Rare basal Rales, no Rhonchi,no Acc. Muscle Use GI: BS + ve, NO Bruit, Non Tender, Non Distended : no CVA tenderness, no Suprapubic Tenderness DIAGNOSIS/ASSESSMENT Assessment & Plan Acute renal failure, suspect due to left retroperitoneal hematoma and recent hypotension, ATN cannot be ruled out. Decreased function from her left kidney, cannot be ruled out. I doubt that she has significant underlying contrast nephropathy; however, that is still a possibility. Creat is better and she is now Oliguric. Given increasing UO so will watch off of HD. Anemia. Defer to Dr. Connell, she does have a retroperitoneal hematoma and has history of blood transfusion. hgb stable for now History of hypertension, occ hypotension asso with RPB has since resolved. Edema. This has been attributed to capillary leak associated with Gemzar. Now has some blisters too. Lasix has been reccomended by other MDs - May/ Can ppt Vidhi again. Would like to hold off unless reqd for absolute Resp distress History of hematuria previously, currently Oliguric UA is not available. This may need to be checked on a later date for clearing .hyperphosphatemia: resolved COMMENT/RELEVANT DATA Meds Current Medications Medications (Trade) Dose Ordered Sig/Shahab Start Time Stop Time Status Last Admin Dose Admin Acetaminophen (Tylenol) 650 mg PRN Q6HRS PRN 12/28/16 18:15 01/08/17 03:23 650 MG Albumin Human (Albuminar) 100 ml @ 100 mls/hr DAILY 01/08/17 17:00 01/10/17 16:59 DC 01/10/17 08:22 100 MLS/HR Albumin Human (Plasmanate) 500 ml @ 75 mls/hr Q6H40M 12/31/16 15:15 01/01/17 11:14 DC 01/01/17 03:44 75 MLS/HR Albuterol Sulfate (Ventolin Neb Soln) 2.5 mg PRN Q6HRS PRN 01/05/17 22:40 01/08/17 03:37 2.5 MG Albuterol/ Ipratropium (Duoneb) 3 ml RTQID 01/05/17 20:00 01/12/17 08:23 3 ML Budesonide (Pulmicort) 0.5 mg RTBID 01/05/17 20:00 01/12/17 08:23 0.5 MG Calcium Acetate (Phoslo) 1,334 mg TIDWMEALS 12/30/16 12:00 01/04/17 11:03 DC 01/04/17 09:46 1,334 MG Calcium Chloride/ Sodium Chloride (Iv Sodium Chloride 0.9% 100ml) 120 ml @ 240 mls/hr 1X ONCE 12/28/16 08:00 12/28/16 08:29 DC 12/28/16 08:54 240 MLS/HR Cefpodoxime Proxetil (Vantin) 200 mg BID 01/03/17 21:00 01/05/17 09:37 DC 01/05/17 08:53 200 MG Cetirizine HCl (Zyrtec) 10 mg PRN DAILY PRN 12/28/16 09:00 Cyanocobalamin (Vitamin B-12) 1,000 mcg QMONTH 01/04/17 09:00 01/04/17 09:49 1,000 MCG Diphenhydramine HCl (Benadryl) 25 mg 1X ONCE 12/27/16 08:15 12/27/16 08:22 DC 12/27/16 09:12 25 MG Fentanyl Citrate (Fentanyl 2ml Vial) 25 mcg PRN QID PRN 12/27/16 16:45 12/29/16 21:00 DC Furosemide (Lasix) 40 mg 1X ONCE 01/07/17 11:30 01/07/17 11:31 DC 01/07/17 11:50 40 MG Furosemide 40 mg 40 mg DAILY 01/08/17 09:00 01/12/17 08:04 40 MG Gabapentin (Neurontin) 300 mg DAILY 12/29/16 09:00 01/03/17 18:21 DC 01/03/17 09:06 300 MG Gabapentin 900 mg 900 mg TID 01/03/17 21:00 01/12/17 08:03 900 MG Heparin Sodium (Porcine) (Heparin Sodium) 10,000 unit STK-MED ONCE 01/10/17 10:39 01/10/17 10:40 DC Heparin Sodium (Porcine) 2800 unit 2,800 unit 1X ONCE 01/10/17 12:30 01/10/17 12:31 DC 01/10/17 13:28 2,800 UNIT Heparin Sodium/ Dextrose 500 ml @ 0 mls/hr CONT PRN 01/02/17 14:45 01/08/17 15:48 DC 01/08/17 13:35 25.2 MLS/HR Heparin Sodium/ Sodium Chloride 60 unit 1X ONCE 01/10/17 12:30 01/10/17 12:31 DC 01/10/17 13:28 60 UNIT Info (Do NOT chart on this entry -- for MONITORING) 1 each PRN DAILY PRN 01/05/17 16:15 01/07/17 16:14 DC Info (PHARMACY MONITORING -- do not chart) 1 each PRN DAILY PRN 12/30/16 08:15 UNV Iohexol (Omnipaque 240 Mg/ml) 30 ml 1X ONCE 01/05/17 16:15 01/05/17 16:16 DC 01/05/17 15:45 30 ML Iohexol (Omnipaque 300 Mg/ml) 60 ml 1X ONCE 01/05/17 16:15 01/05/17 16:16 DC Lidocaine/Sodium Bicarbonate (Buffered Lidocaine 1%) 3 ml 1X ONCE 01/10/17 12:30 01/10/17 12:31 DC 01/10/17 13:27 3 ML Linezolid 300 ml @ 300 mls/hr Q12HR 12/28/16 09:00 12/31/16 10:43 DC 12/31/16 09:13 300 MLS/HR Lisinopril (Prinivil) 10 mg DAILY 12/28/16 09:00 12/28/16 09:00 DC Lorazepam (Ativan) 0.5 mg PRN Q4HRS PRN 12/31/16 09:00 01/08/17 12:50 0.5 MG Magnesium Sulfate/ Dextrose 50 ml @ 25 mls/hr PRN DAILY PRN 01/05/17 11:00 01/08/17 09:27 25 MLS/HR Magnesium Sulfate/ Dextrose (Magnesium Sulfate PREMIX 2GM) 50 ml @ 25 mls/hr PRN DAILY PRN 01/04/17 10:45 UNV Metoclopramide HCl 5 mg 5 mg PRN Q6HRS PRN 12/31/16 11:45 01/01/17 09:42 5 MG Micafungin Sodium 100 mg/Dextrose 100 ml @ 100 mls/hr Q24H 12/28/16 08:00 12/31/16 10:43 DC 12/31/16 09:13 100 MLS/HR Midazolam HCl (Versed) 2 mg STK-MED ONCE 12/28/16 09:41 12/28/16 09:42 DC Ondansetron HCl (Zofran) 8 mg PRN Q6HRS PRN 12/31/16 08:58 01/03/17 08:59 8 MG Oxycodone/ Acetaminophen (Percocet 5/325) 2 tab Q4HRS PRN 12/27/16 16:45 01/11/17 21:50 2 TAB Pantoprazole Sodium (Protonix) 40 mg DAILYAC 12/28/16 07:30 01/12/17 08:03 40 MG Paricalcitol (Zemplar) 5 mcg 3X/WEEK 12/31/16 09:00 01/04/17 11:03 DC 01/03/17 09:06 5 MCG Phytonadione (Vitamin K) 10 mg 1X ONCE 01/10/17 09:15 01/10/17 09:16 DC 01/10/17 09:42 10 MG Phytonadione/ Sodium Chloride (Vitamin K/Iv Sodium Chloride 0.9% 50ml) 51 ml @ 102 mls/hr 1X ONCE 01/11/17 11:30 01/11/17 11:59 DC 01/11/17 14:22 102 MLS/HR Piperacillin Sod/ Tazobactam Sod (Zosyn Per Pharmacy) 1 each PRN DAILY PRN 12/27/16 17:30 12/28/16 07:27 DC Piperacillin Sod/ Tazobactam Sod 2.25 gm/Sodium Chloride 50 ml @ 100 mls/hr Q8HRS 12/28/16 14:00 01/03/17 13:01 DC 01/03/17 06:04 100 MLS/HR Piperacillin Sod/ Tazobactam Sod 3.375 gm/Sodium Chloride 50 ml @ 100 mls/hr 1X ONCE 12/27/16 18:00 12/27/16 18:29 DC 12/27/16 18:07 100 MLS/HR Potassium Chloride 20 meq 20 meq 1X ONCE 01/03/17 18:45 01/03/17 18:46 DC 01/03/17 18:56 20 MEQ Potassium Chloride 40 meq 40 meq 1X ONCE 01/02/17 13:15 01/02/17 13:16 DC 01/02/17 13:21 40 MEQ Potassium Chloride (KCl Premix 20meq) 50 ml @ 25 mls/hr Q2HR 01/05/17 16:00 01/05/17 19:59 DC 01/05/17 23:42 25 MLS/HR Potassium Chloride (Klor-Con) 40 meq 1X ONCE 01/01/17 12:00 01/01/17 12:01 DC 01/01/17 13:02 40 MEQ Prochlorperazine Edisylate (Compazine) 10 mg PRN Q6HRS PRN 01/01/17 11:45 01/01/17 17:38 10 MG Prochlorperazine Edisylate 10 mg 10 mg 1X ONCE 12/29/16 14:00 12/29/16 14:01 DC 12/29/16 14:00 10 MG Saliva Substitute (Biotene Moisturizing Mouth) 2 spray PRN Q15MIN PRN 12/28/16 13:15 12/31/16 17:53 2 SPRAY Sodium Bicarbonate 50 meq 50 meq Q2H 12/28/16 08:30 12/28/16 10:31 DC 12/28/16 15:33 50 MEQ Sodium Bicarbonate/ Dextrose 1,150 ml @ 100 mls/hr [id number] 12/28/16 09:00 12/30/16 08:59 DC 12/30/16 06:08 100 MLS/HR Sodium Chloride (Iv Sodium Chloride 0.9% 500ml Bag) 500 ml @ 500 mls/hr 1X ONCE 12/30/16 00:00 12/30/16 00:59 DC 12/30/16 00:05 500 MLS/HR Sodium Chloride (Iv Sodium Chloride 0.9% 1000ml Bag) 1,000 ml @ 75 mls/hr [id number] 01/03/17 18:45 01/04/17 11:04 DC 01/04/17 09:46 75 MLS/HR Sodium Chloride (Normal Saline Flush) 10 ml 1X PRN PRN 12/30/16 08:15 12/31/16 08:14 DC Tramadol HCl (Ultram) 50 mg PRN Q6HRS PRN 01/08/17 22:15 01/08/17 22:28 50 MG Vancomycin HCl 1.5 gm/Sodium Chloride 500 ml @ 250 mls/hr Q48H 12/29/16 20:00 12/29/16 20:00 DC Vancomycin HCl 1 each 1 each PRN DAILY PRN 12/27/16 17:30 12/27/16 18:51 DC 12/27/16 18:45 1 EACH Vancomycin HCl 2 gm/Sodium Chloride 500 ml @ 250 mls/hr 1X ONCE 12/27/16 17:45 12/27/16 18:51 DC Warfarin Sodium (Coumadin - No Dose Today) 1 each 1X WARF ONCE 01/03/17 16:00 01/03/17 23:01 DC Warfarin Sodium (Coumadin Per Pharmacy) 1 each PRN DAILY PRN 01/02/17 14:45 01/03/17 23:01 DC 01/03/17 11:34 1 EACH Warfarin Sodium (Coumadin) 4 mg DAILY16 01/04/17 17:00 01/09/17 08:15 DC 01/08/17 17:15 4 MG Warfarin Sodium 1 each 1 each PRN DAILY PRN 01/04/17 17:00 01/11/17 06:14 DC 01/10/17 15:26 1 EACH Lab Laboratory Tests Test 01/12/17 05:14 01/12/17 10:10 Prothrombin Time 14.6SEC (11.7-14.0) Prothromb Time International Ratio 1.2 (0.8-1.1) Sodium Level 139mmol/L (136-145) Potassium Level 4.5mmol/L (3.5-5.1) Chloride Level 104mmol/L (98-107) Carbon Dioxide Level 27mmol/L (21-32) Anion Gap 8 (6-14) Blood Urea Nitrogen 34mg/dL (7-20) Creatinine 1.6mg/dL (0.6-1.0) Estimated GFR (Cockcroft-Gault) 32.2 Glucose Level 93mg/dL (70-99) Calcium Level 7.8mg/dL (8.5-10.1) Phosphorus Level 3.9mg/dL (2.6-4.7) Albumin 3.1g/dL (3.4-5.0) Ammonia 25mcmol/L (11-34) DAKOTA VINCENT MD January 12, 2017 11:45
[2017-01-12] MEDS: ONDANSETRON PF 4 MG/2 ML VIAL. IV PRN (11:55)
--- NOTE | 2017-01-12 12:18 | PDOC ---
Subjective: Subjective: Onc f/u- Cholangiocarcinoma Blistering on bilateral LE Fatiged Tremor/ hand flapping continues No other changes Objective: Vital Signs: Vital Signs Date Time Temp Pulse Resp B/P Pulse Ox O2 Delivery O2 Flow Rate FiO2 01/12/17 08:24 97 Nasal Cannula 4.0 01/12/17 06:18 80 12 148/61 01/11/17 19:00 98.1 98.1 Physical Exam: Heart: Regular rate Extremities: Other (2+ edema bilateral LE) General: Alert, Oriented X3, Cooperative, No acute distress, Other (fatigued) Lungs: Other (no resp distress) Psych/Mental Status: Mental status NL, Mood NL Skin: Other (4 cm fluid filled blisters on b/l LE) Labs/Imaging: Cr 1.6 Ammonia checked- Nml CBC stable Assessment/Plan A/P: 1. 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 Last treatment on 12/24/2016. CT 01/05/17 revealed stable disease with stable periportal LN 2.4 cm. Toxicity prompting admit likely gemzar- related (LE swelling, erythema, renal failure). Further tx on hold until over acute events, unclear what future tx options may be but certainly on hold until acute issues resolve and performance status improves. 2. Acute renal failure with uncertain remaining need for HD. Dr. Kerr following. Complicates DC planning. 3. Hypoalbuminemia due to malnutrition from malignancy. Contributes to LE swelling. 4. Twitching/ flapping hands. Ammonia WNL. Cr improved but sx continue. 5. RUE DVT 01/02/17 complicated by 25 cm left retroperitoneal hematoma. Surgery following; Conservative mgt recommended. Anticoagulation on hold. DVT is asymptomatic. Vit K given 01/10 and 01/11 with INR normalization. Family upset by consideration of palliative care consult this weekend; wish to be very aggressive in her care. DC planning complicated; assured pt that Dr. Connell will f/u after DC from step- down unit wherever she goes, and no tx safe to give until her status improves. 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 Dr. Connell will return tomorrow. ИВАН HENDRICKS DO January 12, 2017 12:18
--- NOTE | 2017-01-12 12:56 | PDOC ---
PROGRESS NOTES Subjective Subjective appears well, more awake, does have some L flank and back pain Objective Objective Vital Signs Date Time Temp Pulse Resp B/P Pulse Ox O2 Delivery O2 Flow Rate FiO2 01/12/17 12:00 97.8 83 18 149/69 98 Nasal Cannula 4.0 97.8 Intake and Output 01/12/17 07:00 Intake Total 250 ml Output Total 1300 ml Balance -1050 ml Intake Oral 250 ml Output Urine Total 1300 ml Physical Exam Abdomen: Soft, Other (tender L flank) Heart: Regular rate General: Alert, Oriented X3, Cooperative HEENT: Atraumatic Lungs: Clear to auscultation Psych/Mental Status: Mental status NL Assessment Assessment Problems Medical Problems: (1) Cellulitis Status: Acute Plan Plan of Care L retroperitoneal hematoma, likely from anticoagulation; INR corrected, appears stable; Hb stable; hematoma will resorb over time; We will sign off, please call if needed in the future Comment Review of Relevant I have reviewed the following items ketty (where applicable) has been applied. Labs Laboratory Tests Test 01/11/17 05:40 01/11/17 06:00 01/12/17 05:14 01/12/17 10:10 Sodium Level 137mmol/L (136-145) 139mmol/L (136-145) Potassium Level 4.3mmol/L (3.5-5.1) 4.5mmol/L (3.5-5.1) Chloride Level 103mmol/L (98-107) 104mmol/L (98-107) Carbon Dioxide Level 26mmol/L (21-32) 27mmol/L (21-32) Anion Gap 8 (6-14) 8 (6-14) Blood Urea Nitrogen 36mg/dL (7-20) 34mg/dL (7-20) Creatinine 2.3mg/dL (0.6-1.0) 1.6mg/dL (0.6-1.0) Estimated GFR (Cockcroft-Gault) 21.2 32.2 Glucose Level 97mg/dL (70-99) 93mg/dL (70-99) Calcium Level 7.8mg/dL (8.5-10.1) 7.8mg/dL (8.5-10.1) Phosphorus Level 5.0mg/dL (2.6-4.7) 3.9mg/dL (2.6-4.7) Magnesium Level 2.2mg/dL (1.8-2.4) Albumin 3.1g/dL (3.4-5.0) 3.1g/dL (3.4-5.0) Prothrombin Time 17.6SEC (11.7-14.0) 14.6SEC (11.7-14.0) Prothromb Time International Ratio 1.5 (0.8-1.1) 1.2 (0.8-1.1) Fibrinogen 330mg/dL (200-440) Ammonia 25mcmol/L (11-34) Laboratory Tests Test 01/12/17 05:14 01/12/17 10:10 Prothrombin Time 14.6SEC (11.7-14.0) Prothromb Time International Ratio 1.2 (0.8-1.1) Sodium Level 139mmol/L (136-145) Potassium Level 4.5mmol/L (3.5-5.1) Chloride Level 104mmol/L (98-107) Carbon Dioxide Level 27mmol/L (21-32) Anion Gap 8 (6-14) Blood Urea Nitrogen 34mg/dL (7-20) Creatinine 1.6mg/dL (0.6-1.0) Estimated GFR (Cockcroft-Gault) 32.2 Glucose Level 93mg/dL (70-99) Calcium Level 7.8mg/dL (8.5-10.1) Phosphorus Level 3.9mg/dL (2.6-4.7) Albumin 3.1g/dL (3.4-5.0) Ammonia 25mcmol/L (11-34) Microbiology 12/27/16 Blood Culture - Final, Complete NO GROWTH AFTER 5 DAYS 12/31/16 Urine Culture - Final, Complete 12/31/16 Urine Culture Result 1 (MANE) - Final, Complete Medications Current Medications Acetaminophen (Tylenol) 650 mg 1X ONCE PO Last administered on 12/27/16 09:11 ; Start 12/27/16 at 08:15; Stop 12/27/16 at 08:22; Status DC Diphenhydramine HCl (Benadryl) 25 mg 1X ONCE PO Last administered on 09:12; Start 12/27/16 at 08:15; Stop 12/27/16 at 08:22; Status DC Furosemide (Lasix) 20 mg 1X ONCE IVP ; Start 12/27/16 at 08:15; Stop 12/27/16 at 08:22; Status DC Fentanyl Citrate (Fentanyl 2ml Vial) 25 mcg PRN QID PRN IV PAIN; Start at 16:45; Stop 12/29/16 at 21:00; Status DC Lisinopril (Prinivil) 10 mg DAILY PO ; Start 12/28/16 at 09:00; Stop 12/28/16 at 09:00; Status DC Oxycodone/ Acetaminophen (Percocet 5/325) 1 tab Q4HRS PRN PO MILD/MODERATE PAIN Last administered on 01/09/17 01:27; Start 12/27/16 at 16:45 Gabapentin (Neurontin) 300 mg TID PO Last administered on 12/28/16 10:44; Start 12/27/16 at 21:00; Stop 12/28/16 at 15:23; Status DC Cetirizine HCl (Zyrtec) 10 mg PRN DAILY PRN PO ALLERGIES; Start 12/28/16 at 09: 00 Pantoprazole Sodium (Protonix) 40 mg DAILYAC PO Last administered on 01/12/17 08:03; Start 12/28/16 at 07:30 Oxycodone/ Acetaminophen 2 tab 2 tab Q4HRS PRN PO SEVERE PAIN Last administered on 01/11/17 21:50; Start 12/27/16 at 16:45 Sodium Chloride (Iv Sodium Chloride 0.9% 1000ml Bag) 1,000 ml @ 75 mls/hr [id number] IV Last administered on 12/28/16 07:12; Start 12/27/16 at 17:30; Stop 12/28/16 at 08:15; Status DC Piperacillin Sod/ Tazobactam Sod (Zosyn Per Pharmacy) 1 each PRN DAILY PRN MC SEE COMMENTS; Start 12/27/16 at 17:30; Stop 12/28/16 at 07:27; Status DC Vancomycin HCl 1 each 1 each PRN DAILY PRN MC SEE COMMENTS Last administered on 12/27/16 18:45; Start 12/27/16 at 17:30; Stop 12/27/16 at 18:51; Status DC Vancomycin HCl 2 gm/Sodium Chloride 500 ml @ 250 mls/hr 1X ONCE IV ; Start at 17:45; Stop 12/27/16 at 18:51; Status DC Piperacillin Sod/ Tazobactam Sod 3.375 gm/Sodium Chloride 50 ml @ 100 mls/hr 1X ONCE IV Last administered on 12/27/16 18:07; Start 12/27/16 at 18:00; Stop 12/27/16 at 18:29; Status DC Piperacillin Sod/ Tazobactam Sod 2.25 gm/Sodium Chloride 50 ml @ 100 mls/hr Q6HRS IV Last administered on 12/28/16 06:08; Start 12/28/16 at 00:00; Stop at 07:31; Status DC Vancomycin HCl 1.5 gm/Sodium Chloride 500 ml @ 250 mls/hr Q48H IV ; Start 12/29 at 20:00; Stop 12/29/16 at 20:00; Status DC Micafungin Sodium 100 mg/Dextrose 100 ml @ 100 mls/hr Q24H IV Last administered on 12/31/16 09:13; Start 12/28/16 at 08:00; Stop 12/31/16 at 10:43 ; Status DC Linezolid 300 ml @ 300 mls/hr Q12HR IV Last administered on 12/31/16 09:13; Start 12/28/16 at 09:00; Stop 12/31/16 at 10:43; Status DC Piperacillin Sod/ Tazobactam Sod 2.25 gm/Sodium Chloride 50 ml @ 100 mls/hr Q8HRS IV Last administered on 01/03/17 06:04; Start 12/28/16 at 14:00; Stop at 13:01; Status DC Calcium Chloride 2000 mg/Sodium Chloride 120 ml @ 240 mls/hr 1X ONCE IV Last administered on 12/28/16 08:54; Start 12/28/16 at 08:00; Stop 12/28/16 at 08:29 ; Status DC Magnesium Sulfate/ Dextrose (Magnesium Sulfate PREMIX 2GM) 50 ml @ 25 mls/hr PRN DAILY PRN IV for Mag < 1.7 on am labs Last administered on 01/04/17 09:50 ; Start 12/28/16 at 08:15; Stop 01/06/17 at 11:48; Status DC Sodium Bicarbonate 50 meq 50 meq Q2H IV Last administered on 12/28/16 15:33; Start 12/28/16 at 08:30; Stop 12/28/16 at 10:31; Status DC Sodium Chloride 500 ml @ 0 mls/hr PRN QID PRN IV UO< 30cc/hr over previous 6hrs ; Start 12/28/16 at 08:15; Stop 01/03/17 at 18:34; Status DC Sodium Bicarbonate/ Dextrose 1,150 ml @ 100 mls/hr [id number] IV Last administered on 12/30/16 06:08; Start 12/28/16 at 09:00; Stop 12/30/16 at 08:59 ; Status DC Heparin Sodium (Porcine) (Heparin Sodium) 10,000 unit STK-MED ONCE .ROUTE ; Start 12/28/16 at 08:46; Stop 12/28/16 at 08:47; Status DC Lidocaine/Sodium Bicarbonate 20 ml 20 ml STK-MED ONCE IJ ; Start 12/28/16 at 08: 47; Stop 12/28/16 at 08:48; Status DC Heparin Sodium/ Sodium Chloride 500 ml @ As Directed STK-MED ONCE .ROUTE ; Start 12/28/16 at 08:47; Stop 12/28/16 at 08:48; Status DC Lidocaine/Sodium Bicarbonate (Buffered Lidocaine 1%) 3 ml 1X ONCE IJ Last administered on 12/28/16 10:10; Start 12/28/16 at 09:00; Stop 12/28/16 at 09:01 ; Status DC Heparin Sodium/ Sodium Chloride 60 unit 1X ONCE IV Last administered on 10:11; Start 12/28/16 at 09:00; Stop 12/28/16 at 09:01; Status DC Heparin Sodium (Porcine) (Heparin Sodium) 2,500 unit 1X ONCE INT CAT Last administered on 12/28/16 10:10; Start 12/28/16 at 09:00; Stop 12/28/16 at 09:01 ; Status DC Midazolam HCl (Versed) 2 mg STK-MED ONCE .ROUTE ; Start 12/28/16 at 09:41; Stop 12/28/16 at 09:42; Status DC Saliva Substitute (Biotene Moisturizing Mouth) 2 spray PRN Q15MIN PRN PO DRY MOUTH Last administered on 12/31/16 17:53; Start 12/28/16 at 13:15 Gabapentin (Neurontin) 300 mg DAILY PO Last administered on 01/03/17 09:06; Start 12/29/16 at 09:00; Stop 01/03/17 at 18:21; Status DC Acetaminophen (Tylenol) 650 mg PRN Q6HRS PRN PO MILD PAIN Last administered on 01/08/17 03:23; Start 12/28/16 at 18:15 Ondansetron HCl (Zofran) 4 mg PRN Q6HRS PRN IV NAUSEA/VOMITING Last administered on 12/29/16 11:10; Start 12/29/16 at 10:45; Stop 12/29/16 at 13:53 ; Status DC Ondansetron HCl (Zofran) 8 mg PRN Q8HRS PRN IV NAUSEA/VOMITING Last administered on 12/31/16 03:35; Start 12/29/16 at 14:00; Stop 12/31/16 at 09:03 ; Status DC Prochlorperazine Edisylate 10 mg 10 mg 1X ONCE IV Last administered on 14:00; Start 12/29/16 at 14:00; Stop 12/29/16 at 14:01; Status DC Sodium Chloride 500 ml @ 500 mls/hr 1X ONCE IV Last administered on 23:20; Start 12/29/16 at 23:30; Stop 12/30/16 at 00:29; Status DC Sodium Chloride 500 ml @ 500 mls/hr 1X ONCE IV Last administered on 00:05; Start 12/30/16 at 00:00; Stop 12/30/16 at 00:59; Status DC Sodium Chloride 1,000 ml @ 1,000 mls/hr Q1H PRN IV hypotension; Start 12/30/16 at 08:03; Stop 12/30/16 at 14:02; Status DC Albumin Human (Albuminar) 200 ml @ 200 mls/hr 1X PRN PRN IV Hypotension Last administered on 12/30/16 09:22; Start 12/30/16 at 08:15; Stop 12/30/16 at 14:14 ; Status DC Sodium Chloride (Normal Saline Flush) 10 ml 1X PRN PRN IV AP catheter pack; Start 12/30/16 at 08:15; Stop 12/31/16 at 08:14; Status DC Sodium Chloride (Normal Saline Flush) 10 ml 1X PRN PRN IV SOLID DIE CUTTER catheter pack; Start 12/30/16 at 08:15; Stop 12/31/16 at 08:14; Status DC Info (PHARMACY MONITORING -- do not chart) 1 each PRN DAILY PRN MC SEE COMMENTS ; Start 12/30/16 at 08:15; Stop 01/08/17 at 12:44; Status DC Info (PHARMACY MONITORING -- do not chart) 1 each PRN DAILY PRN MC SEE COMMENTS ; Start 12/30/16 at 08:15; Status UNV Paricalcitol (Zemplar) 5 mcg 3X/WEEK IV Last administered on 01/03/17 09:06; Start 12/31/16 at 09:00; Stop 01/04/17 at 11:03; Status DC Calcium Acetate 1334 mg 1,334 mg TIDWMEALS PO Last administered on 01/04/17 09 :46; Start 12/30/16 at 12:00; Stop 01/04/17 at 11:03; Status DC Albumin Human (Plasmanate) 500 ml @ 120 mls/hr Q4HRS IV Last administered on 16:45; Start 12/30/16 at 12:00; Stop 12/30/16 at 19:59; Status DC Ondansetron HCl (Zofran) 8 mg PRN Q6HRS PRN IV NAUSEA/VOMITING, 2ND CHOICE Last administered on 01/12/17 11:55; Start 12/31/16 at 08:58 Lorazepam (Ativan) 0.5 mg PRN Q4HRS PRN IV ANXIETY / AGITATION Last administered on 01/08/17 12:50; Start 12/31/16 at 09:00 Prochlorperazine Edisylate (Compazine) 10 mg PRN Q6HRS PRN IM NAUSEA/VOMITING Last administered on 12/31/16 09:15; Start 12/31/16 at 09:00; Stop 01/01/17 at 11:48; Status DC Metoclopramide HCl 5 mg 5 mg PRN Q6HRS PRN IV NAUSEA/VOMITING, 1ST CHOICE Last administered on 01/01/17 09:42; Start 12/31/16 at 11:45 Magnesium Sulfate/ Dextrose 50 ml @ 25 mls/hr 1X ONCE IV Last administered on 12/31/16 17:54; Start 12/31/16 at 15:00; Stop 12/31/16 at 16:59; Status DC Albumin Human (Plasmanate) 500 ml @ 75 mls/hr Q6H40M IV Last administered on 03:44; Start 12/31/16 at 15:15; Stop 01/01/17 at 11:14; Status DC Prochlorperazine Edisylate (Compazine) 10 mg PRN Q6HRS PRN IV NAUSEA/VOMITING, 3RD CHOICE Last administered on 01/01/17 17:38; Start 01/01/17 at 11:45 Potassium Chloride (Klor-Con) 40 meq 1X ONCE PO Last administered on 13:02; Start 01/01/17 at 12:00; Stop 01/01/17 at 12:01; Status DC Furosemide (Lasix) 40 mg 1X ONCE IVP Last administered on 01/01/17 14:24; Start 01/01/17 at 14:00; Stop 01/01/17 at 14:01; Status DC Albuterol/ Ipratropium (Duoneb) 3 ml PRN Q6HRS PRN NEB SHORTNESS OF BREATH Last administered on 01/05/17 11:26; Start 01/01/17 at 13:45; Stop 01/05/17 at 22:40; Status DC Furosemide (Lasix) 40 mg 1X ONCE IVP Last administered on 01/02/17 11:43; Start 01/02/17 at 10:45; Stop 01/02/17 at 10:46; Status DC Potassium Chloride 40 meq 40 meq 1X ONCE PO Last administered on 01/02/17 13: 21; Start 01/02/17 at 13:15; Stop 01/02/17 at 13:16; Status DC Heparin Sodium/ Dextrose 500 ml @ 0 mls/hr CONT PRN IV SEE I/O RECORD Last administered on 01/08/17 13:35; Start 01/02/17 at 14:45; Stop 01/08/17 at 15:48 ; Status DC Heparin Sodium (Porcine) (Heparin Sodium) 3,150 unit PRN Q6HRS PRN IV FOR UFH LEVEL LESS THAN 0.2; Start 01/02/17 at 14:45; Stop 01/08/17 at 15:48; Status DC Heparin Sodium (Porcine) (Heparin Sodium) 1,550 unit PRN Q6HRS PRN IV FOR UFH LEVEL 0.2 - 0.29; Start 01/02/17 at 14:45; Stop 01/08/17 at 15:48; Status DC Warfarin Sodium (Coumadin Per Pharmacy) 1 each PRN DAILY PRN MC PER PROTOCOL Last administered on 01/03/17 11:34; Start 01/02/17 at 14:45; Stop 01/03/17 at 23:01; Status DC Warfarin Sodium (Coumadin) 5 mg 1X WARF ONCE PO Last administered on 17:41; Start 01/02/17 at 16:00; Stop 01/02/17 at 16:01; Status DC Warfarin Sodium (Coumadin - No Dose Today) 1 each 1X WARF ONCE MC ; Start 01/03 at 16:00; Stop 01/03/17 at 23:01; Status DC Cefpodoxime Proxetil (Vantin) 200 mg BID PO Last administered on 01/05/17 08: 53; Start 01/03/17 at 21:00; Stop 01/05/17 at 09:37; Status DC Cyanocobalamin (Vitamin B-12) 1,000 mcg QMONTH IM Last administered on 09:49; Start 01/04/17 at 09:00 Gabapentin 900 mg 900 mg TID PO Last administered on 01/12/17 08:03; Start at 21:00 Sodium Chloride (Iv Sodium Chloride 0.9% 1000ml Bag) 1,000 ml @ 75 mls/hr [id number] IV Last administered on 01/04/17 09:46; Start 01/03/17 at 18:45; Stop 01/04/17 at 11:04; Status DC Potassium Chloride 20 meq 20 meq 1X ONCE PO Last administered on 01/03/17 18: 56; Start 01/03/17 at 18:45; Stop 01/03/17 at 18:46; Status DC Magnesium Sulfate/ Dextrose 50 ml @ 25 mls/hr PRN DAILY PRN IV for Mag < 1.7 on am labs; Start 01/04/17 at 10:45; Status UNV Potassium Chloride 50 ml @ 50 mls/hr PRN Q6HRS PRN IV For K < 3.7 Last administered on 01/05/17 13:10; Start 01/04/17 at 10:45 Potassium Chloride 50 ml @ 50 mls/hr PRN Q2HR PRN IV total of 40mEq for K < 3.5 Last administered on 01/04/17 13:46; Start 01/04/17 at 10:45 Albumin Human (Albuminar) 100 ml @ 100 mls/hr TID IV Last administered on 01/06 08:53; Start 01/04/17 at 14:00; Stop 01/06/17 at 09:59; Status DC Warfarin Sodium (Coumadin) 4 mg DAILY16 PO Last administered on 01/08/17 17:15 ; Start 01/04/17 at 17:00; Stop 01/09/17 at 08:15; Status DC Warfarin Sodium 1 each 1 each PRN DAILY PRN MC SEE COMMENTS Last administered on 01/10/17 15:26; Start 01/04/17 at 17:00; Stop 01/11/17 at 06:14; Status DC Magnesium Sulfate/ Dextrose 100 ml @ 100 mls/hr 1X ONCE IV Last administered on 01/05/17 11:35; Start 01/05/17 at 11:00; Stop 01/05/17 at 11:59; Status DC Magnesium Sulfate/ Dextrose 50 ml @ 25 mls/hr PRN DAILY PRN IV for Mag < 1.7 on am labs Last administered on 01/08/17 09:27; Start 01/05/17 at 11:00 Potassium Chloride (KCl Premix 20meq) 50 ml @ 25 mls/hr Q2HR IV Last administered on 01/05/17 23:42; Start 01/05/17 at 16:00; Stop 01/05/17 at 19:59 ; Status DC Iohexol (Omnipaque 300 Mg/ml) 60 ml 1X ONCE IV ; Start 01/05/17 at 16:15; Stop 01/05/17 at 16:16; Status DC Iohexol (Omnipaque 240 Mg/ml) 30 ml 1X ONCE PO Last administered on 01/05/17 15:45; Start 01/05/17 at 16:15; Stop 01/05/17 at 16:16; Status DC Info (Do NOT chart on this entry -- for MONITORING) 1 each PRN DAILY PRN MC SEE COMMENTS; Start 01/05/17 at 16:15; Stop 01/07/17 at 16:14; Status DC Albuterol/ Ipratropium (Duoneb) 3 ml RTQID NEB Last administered on 01/12/17 08 :23; Start 01/05/17 at 20:00 Budesonide (Pulmicort) 0.5 mg RTBID NEB Last administered on 01/12/17 08:23; Start 01/05/17 at 20:00 Furosemide (Lasix) 20 mg 1X ONCE IVP Last administered on 01/05/17 22:04; Start 01/05/17 at 22:00; Stop 01/05/17 at 22:01; Status DC Albuterol Sulfate (Ventolin Neb Soln) 2.5 mg PRN Q6HRS PRN NEB SHORTNESS OF BREATH Last administered on 01/08/17 03:37; Start 01/05/17 at 22:40 Furosemide (Lasix) 40 mg 1X ONCE IVP Last administered on 01/07/17 11:50; Start 01/07/17 at 11:30; Stop 01/07/17 at 11:31; Status DC Furosemide 40 mg 40 mg DAILY IVP Last administered on 01/12/17 08:04; Start at 09:00 Albumin Human (Albuminar) 100 ml @ 100 mls/hr DAILY IV Last administered on 08:22; Start 01/08/17 at 17:00; Stop 01/10/17 at 16:59; Status DC Tramadol HCl (Ultram) 50 mg PRN Q6HRS PRN PO MODERATE PAIN Last administered on 01/08/17 22:28; Start 01/08/17 at 22:15 Phytonadione (Vitamin K) 10 mg 1X ONCE SQ Last administered on 01/10/17 09:42 ; Start 01/10/17 at 09:15; Stop 01/10/17 at 09:16; Status DC Heparin Sodium (Porcine) (Heparin Sodium) 10,000 unit STK-MED ONCE .ROUTE ; Start 01/10/17 at 10:39; Stop 01/10/17 at 10:40; Status DC Lidocaine/Sodium Bicarbonate 20 ml 20 ml STK-MED ONCE IJ ; Start 01/10/17 at 10: 39; Stop 01/10/17 at 10:40; Status DC Heparin Sodium/ Sodium Chloride 500 ml @ As Directed STK-MED ONCE .ROUTE ; Start 01/10/17 at 10:39; Stop 01/10/17 at 10:40; Status DC Lidocaine/Sodium Bicarbonate (Buffered Lidocaine 1%) 3 ml 1X ONCE IJ Last administered on 01/10/17 13:27; Start 01/10/17 at 12:30; Stop 01/10/17 at 12:31; Status DC Heparin Sodium/ Sodium Chloride 60 unit 1X ONCE IV Last administered on 13:28; Start 01/10/17 at 12:30; Stop 01/10/17 at 12:31; Status DC Heparin Sodium (Porcine) 2800 unit 2,800 unit 1X ONCE INT CAT Last administered on 01/10/17 13:28; Start 01/10/17 at 12:30; Stop 01/10/17 at 12:31; Status DC Phytonadione/ Sodium Chloride (Vitamin K/Iv Sodium Chloride 0.9% 50ml) 51 ml @ 102 mls/hr 1X ONCE IV Last administered on 01/11/17 14:22; Start 01/11/17 at 11 :30; Stop 01/11/17 at 11:59; Status DC Active Scripts Active Reported Gabapentin 300 Mg Capsule 900 Mg PO TID Claritin (Loratadine) 10 Mg Tablet 1 Tab PO DAILY PRN Bactrim 400-80 Mg Tablet (Sulfamethoxazole/Trimethoprim) 1 Each Tablet 1 Tab PO BID Gabapentin 300 Mg Capsule 300 Mg PO TID Zestril (Lisinopril) 10 Mg Tablet 10 Mg PO DAILY Cyanocobalamin Injection (Cyanocobalamin (Vitamin B-12)) 1,000 Mcg/1 Ml Vial 1, 000 Mcg QMONTH Percocet 5-325 Mg Tablet (Oxycodone/Acetaminophen) 1 Each Tablet 1-2 Tab PO Q4- 6HRS Prilosec Otc (Omeprazole Magnesium) 20 Mg Tablet.dr 20 Mg PO DAILY Vitals/I & O Vital Sign - Last 24 Hours 01/11/17 01/11/17 01/11/17 01/11/17 15:18 15:28 16:10 17:00 Pulse 90 88 86 Resp 22 16 20 B/P 154/67 148/65 139/58 Pulse Ox 98 99 99 100 O2 Delivery Nasal Cannula Nasal Cannula Nasal Cannula Nasal Cannula O2 Flow Rate 4.0 4.0 4.0 4.0 01/11/17 01/11/17 01/11/17 01/11/17 18:00 19:00 19:22 19:35 Temp 98.1 98.1 Pulse 88 86 Resp 16 20 B/P 152/65 143/63 Pulse Ox 98 98 98 O2 Delivery Nasal Cannula Nasal Cannula Nasal Cannula Nasal Cannula O2 Flow Rate 4.0 4.0 4.0 4.0 01/11/17 01/11/17 01/11/17 01/11/17 20:00 21:00 21:50 22:00 Pulse 83 83 88 Resp 16 18 18 18 B/P 152/66 148/68 113/63 Pulse Ox 98 99 99 98 O2 Delivery Nasal Cannula Nasal Cannula Nasal Cannula Nasal Cannula O2 Flow Rate 4.0 4.0 4.0 4.0 01/11/17 01/11/1701/12/01/12/17 22:50 23:00 00:00 01:12 Pulse 92 88 81 Resp 20 18 18 18 B/P 152/71 142/66 146/68 Pulse Ox 98 96 98 99 O2 Delivery Nasal Cannula Nasal Cannula Nasal Cannula Nasal Cannula O2 Flow Rate 4.0 4.0 4.0 4.0 01/12/01/12/1701/12/01/12/17 02:12 03:07 04:00 05:00 Pulse 81 80 82 80 Resp 18 16 12 16 B/P 131/58 131/59 144/70 150/65 Pulse Ox 97 96 99 96 O2 Delivery Nasal Cannula Nasal Cannula Nasal Cannula Nasal Cannula O2 Flow Rate 4.0 4.0 4.0 4.0 01/12/1701/12/01/12/17 5/3/17 06:18 07:00 08:00 08:00 Temp 97.6 97.6 Pulse 80 82 84 Resp 12 14 14 B/P 148/61 153/66 149/72 Pulse Ox 97 98 98 O2 Delivery Nasal Cannula Nasal Cannula Nasal Cannula Nasal Cannula O2 Flow Rate 4.0 4.0 4.0 4.0 01/12/17 01/12/17 01/12/17 01/12/17 08:24 09:00 10:00 11:00 Pulse 86 81 80 Resp 16 16 16 B/P 151/69 138/62 142/71 Pulse Ox 97 97 99 97 O2 Delivery Nasal Cannula Nasal Cannula Nasal Cannula Nasal Cannula O2 Flow Rate 4.0 4.0 4.0 4.0 01/12/17 12:00 Temp 97.8 97.8 Pulse 83 Resp 18 B/P 149/69 Pulse Ox 98 O2 Delivery Nasal Cannula O2 Flow Rate 4.0 Intake and Output 01/11/17 01/11/17 01/12/17 15:00 23:00 07:00 Intake Total 150 ml 100 ml Output Total 700 ml 600 ml Balance -550 ml -500 ml PEREZ GROSS MD January 12, 2017 12:56
--- NOTE | 2017-01-12 13:10 | PDOC ---
PULMONARY PROGRESS NOTES Subjective no soa Vitals Vital Signs Date Time Temp Pulse Resp B/P Pulse Ox O2 Delivery O2 Flow Rate FiO2 01/12/17 12:00 97.8 83 18 149/69 98 Nasal Cannula 4.0 97.8 General: Alert, No acute distress HEENT: Other Lungs: Other (decrease bs, wheezing bilaterally, on nasal cannula 4 L) Cardiovascular: S1, S2 Abdomen: Soft, Non-tender, Other (he) Neuro Exam: Alert Extremities: Other (2 EDEMA, blisters) Skin: Warm Labs Laboratory Tests Test 01/11/17 05:40 01/11/17 06:00 01/12/17 05:14 01/12/17 10:10 Sodium Level 137mmol/L (136-145) 139mmol/L (136-145) Potassium Level 4.3mmol/L (3.5-5.1) 4.5mmol/L (3.5-5.1) Chloride Level 103mmol/L (98-107) 104mmol/L (98-107) Carbon Dioxide Level 26mmol/L (21-32) 27mmol/L (21-32) Anion Gap 8 (6-14) 8 (6-14) Blood Urea Nitrogen 36mg/dL (7-20) 34mg/dL (7-20) Creatinine 2.3mg/dL (0.6-1.0) 1.6mg/dL (0.6-1.0) Estimated GFR (Cockcroft-Gault) 21.2 32.2 Glucose Level 97mg/dL (70-99) 93mg/dL (70-99) Calcium Level 7.8mg/dL (8.5-10.1) 7.8mg/dL (8.5-10.1) Phosphorus Level 5.0mg/dL (2.6-4.7) 3.9mg/dL (2.6-4.7) Magnesium Level 2.2mg/dL (1.8-2.4) Albumin 3.1g/dL (3.4-5.0) 3.1g/dL (3.4-5.0) Prothrombin Time 17.6SEC (11.7-14.0) 14.6SEC (11.7-14.0) Prothromb Time International Ratio 1.5 (0.8-1.1) 1.2 (0.8-1.1) Fibrinogen 330mg/dL (200-440) Ammonia 25mcmol/L (11-34) Laboratory Tests Test 01/12/17 05:14 01/12/17 10:10 Prothrombin Time 14.6SEC (11.7-14.0) Prothromb Time International Ratio 1.2 (0.8-1.1) Sodium Level 139mmol/L (136-145) Potassium Level 4.5mmol/L (3.5-5.1) Chloride Level 104mmol/L (98-107) Carbon Dioxide Level 27mmol/L (21-32) Anion Gap 8 (6-14) Blood Urea Nitrogen 34mg/dL (7-20) Creatinine 1.6mg/dL (0.6-1.0) Estimated GFR (Cockcroft-Gault) 32.2 Glucose Level 93mg/dL (70-99) Calcium Level 7.8mg/dL (8.5-10.1) Phosphorus Level 3.9mg/dL (2.6-4.7) Albumin 3.1g/dL (3.4-5.0) Ammonia 25mcmol/L (11-34) Medications Active Scripts Medications Dose Route/Sig Days Date Category Gabapentin 300 Mg Capsule 900 Mg PO TID 01/03/17 Reported Claritin (Loratadine) 10 Mg Tablet 1 Tab PO DAILY PRN 11/22/16 Reported Bactrim 400-80 Mg Tablet (Sulfamethoxazole/Trimethoprim) 1 Each Tablet 1 Tab PO BID 11/22/16 Reported Gabapentin 300 Mg Capsule 300 Mg PO TID 11/22/16 Reported Zestril (Lisinopril) 10 Mg Tablet 10 Mg PO DAILY 11/22/16 Reported Cyanocobalamin Injection (Cyanocobalamin (Vitamin B-12)) 1,000 Mcg/1 Ml Vial 1,000 Mcg QMONTH 05/28/16 Reported Percocet 5-325 Mg Tablet (Oxycodone/Acetaminophen) 1 Each Tablet 1-2 Tab PO Q4-6HRS 05/28/16 Reported Prilosec Otc (Omeprazole Magnesium) 20 Mg Tablet.dr 20 Mg PO DAILY 05/28/16 Reported Impression . 1. Acute respiratory failure/distress, multifactorial, secondary to acute pulmonary edema. diastolic HF 2. Metastatic cholangiocarcinoma, status post recent chemotherapy, last received on 12/24/2016. 3. Acute renal failure, requiring hemodialysis, currently off of dialysis. 4. Acute blood loss anemia, status post transfusion. off AC 5. Right upper extremity deep venous thrombosis, diagnosed on 01/02/2017. off anticoagulation due to large retro-peritoneal bleed 6. Peripheral neuropathy. 7. Abnormal x-ray compatible with pulmonary edema. 8. Multiple other comorbidities. 9. Acute blood loss anemia Plan . 1. We will continue Lasix ,monitor renal function closely, improving 2. echocardiogram reviewed 3. improve nutritional status 4. P.r.n. nebulized treatments. 5. Continue other support 6. blisters per PCP 7. p.r.n. BiPAP. d/w DAUGHTER OK WITH [employer] MIRIAN PENN MD January 12, 2017 13:10
--- NOTE | 2017-01-12 15:49 | PDOC2 ---
NEUROLOGY CONSULT Date of Admission Date of Admission DATE: 01/12/17 TIME: 15:37 Reason for Consult Reason for Consult: altered mental status, hand tremors Referring Physician Referring Physician: Dr. Rivera PCP: Dr. Main Source Source: Caregiver, Chart review, Patient History of Present Illness History of Present Illness The patient is a 66-year-old right-handed female admitted with cellulitis with complications of sepsis, respiratory failure, and renal failure. I'm asked to see her regarding altered mental status and abnormal jerking of the hands. I last saw her in the office for the one and only time four months ago regarding peripheral neuropathy. There were plans for an EMG, but she did not show up. There is no history of stroke, seizure, or head injury. Past Medical History Cardiovascular: HTN, Other Pulmonary: Pulmonary embolus (deep vein thrombosis) CENTRAL NERVOUS SYSTEM: Periperal neuropathy (chemotherapy-induced), Other ( vertigo) GI: GERD Heme/Onc: Anemia NOS, Cancer (cholangiocarcinoma, breast (DCIS)) Psych: Anxiety Musculoskeletal: Osteoarthritis Renal/: Acute renal failure, UTI, Urinary Incontinence (stress) Dermatology: Cellulitis, Other (unknown skin cancer removed from the face, pressure ulcer) Past Surgical History Past Surgical History: Hernia Repair (ventral), Hysterectomy, Other (left breast lumpectomy, gastric bypass, bowel resection, removal of cholangiocarcinoma) Family History Family History: No pertinent hx Social History Social History , no alcohol or tobacco Current Medications Current Medications Current Medications Acetaminophen (Tylenol) 650 mg 1X ONCE PO Last administered on 12/27/16 09:11 ; Start 12/27/16 at 08:15; Stop 12/27/16 at 08:22; Status DC Diphenhydramine HCl (Benadryl) 25 mg 1X ONCE PO Last administered on 09:12; Start 12/27/16 at 08:15; Stop 12/27/16 at 08:22; Status DC Furosemide (Lasix) 20 mg 1X ONCE IVP ; Start 12/27/16 at 08:15; Stop 12/27/16 at 08:22; Status DC Fentanyl Citrate (Fentanyl 2ml Vial) 25 mcg PRN QID PRN IV PAIN; Start at 16:45; Stop 12/29/16 at 21:00; Status DC Lisinopril (Prinivil) 10 mg DAILY PO ; Start 12/28/16 at 09:00; Stop 12/28/16 at 09:00; Status DC Oxycodone/ Acetaminophen (Percocet 5/325) 1 tab Q4HRS PRN PO MILD/MODERATE PAIN Last administered on 01/09/17 01:27; Start 12/27/16 at 16:45 Gabapentin (Neurontin) 300 mg TID PO Last administered on 12/28/16 10:44; Start 12/27/16 at 21:00; Stop 12/28/16 at 15:23; Status DC Cetirizine HCl (Zyrtec) 10 mg PRN DAILY PRN PO ALLERGIES; Start 12/28/16 at 09: 00 Pantoprazole Sodium (Protonix) 40 mg DAILYAC PO Last administered on 01/12/17 08:03; Start 12/28/16 at 07:30 Oxycodone/ Acetaminophen 2 tab 2 tab Q4HRS PRN PO SEVERE PAIN Last administered on 01/11/17 21:50; Start 12/27/16 at 16:45 Sodium Chloride (Iv Sodium Chloride 0.9% 1000ml Bag) 1,000 ml @ 75 mls/hr [id number] IV Last administered on 12/28/16 07:12; Start 12/27/16 at 17:30; Stop 12/28/16 at 08:15; Status DC Piperacillin Sod/ Tazobactam Sod (Zosyn Per Pharmacy) 1 each PRN DAILY PRN MC SEE COMMENTS; Start 12/27/16 at 17:30; Stop 12/28/16 at 07:27; Status DC Vancomycin HCl 1 each 1 each PRN DAILY PRN MC SEE COMMENTS Last administered on 12/27/16 18:45; Start 12/27/16 at 17:30; Stop 12/27/16 at 18:51; Status DC Vancomycin HCl 2 gm/Sodium Chloride 500 ml @ 250 mls/hr 1X ONCE IV ; Start at 17:45; Stop 12/27/16 at 18:51; Status DC Piperacillin Sod/ Tazobactam Sod 3.375 gm/Sodium Chloride 50 ml @ 100 mls/hr 1X ONCE IV Last administered on 12/27/16 18:07; Start 12/27/16 at 18:00; Stop 12/27/16 at 18:29; Status DC Piperacillin Sod/ Tazobactam Sod 2.25 gm/Sodium Chloride 50 ml @ 100 mls/hr Q6HRS IV Last administered on 12/28/16 06:08; Start 12/28/16 at 00:00; Stop at 07:31; Status DC Vancomycin HCl 1.5 gm/Sodium Chloride 500 ml @ 250 mls/hr Q48H IV ; Start 12/29 at 20:00; Stop 12/29/16 at 20:00; Status DC Micafungin Sodium 100 mg/Dextrose 100 ml @ 100 mls/hr Q24H IV Last administered on 12/31/16 09:13; Start 12/28/16 at 08:00; Stop 12/31/16 at 10:43 ; Status DC Linezolid 300 ml @ 300 mls/hr Q12HR IV Last administered on 12/31/16 09:13; Start 12/28/16 at 09:00; Stop 12/31/16 at 10:43; Status DC Piperacillin Sod/ Tazobactam Sod 2.25 gm/Sodium Chloride 50 ml @ 100 mls/hr Q8HRS IV Last administered on 01/03/17 06:04; Start 12/28/16 at 14:00; Stop at 13:01; Status DC Calcium Chloride 2000 mg/Sodium Chloride 120 ml @ 240 mls/hr 1X ONCE IV Last administered on 12/28/16 08:54; Start 12/28/16 at 08:00; Stop 12/28/16 at 08:29 ; Status DC Magnesium Sulfate/ Dextrose (Magnesium Sulfate PREMIX 2GM) 50 ml @ 25 mls/hr PRN DAILY PRN IV for Mag < 1.7 on am labs Last administered on 01/04/17 09:50 ; Start 12/28/16 at 08:15; Stop 01/06/17 at 11:48; Status DC Sodium Bicarbonate 50 meq 50 meq Q2H IV Last administered on 12/28/16 15:33; Start 12/28/16 at 08:30; Stop 12/28/16 at 10:31; Status DC Sodium Chloride 500 ml @ 0 mls/hr PRN QID PRN IV UO< 30cc/hr over previous 6hrs ; Start 12/28/16 at 08:15; Stop 01/03/17 at 18:34; Status DC Sodium Bicarbonate/ Dextrose 1,150 ml @ 100 mls/hr [id number] IV Last administered on 12/30/16 06:08; Start 12/28/16 at 09:00; Stop 12/30/16 at 08:59 ; Status DC Heparin Sodium (Porcine) (Heparin Sodium) 10,000 unit STK-MED ONCE .ROUTE ; Start 12/28/16 at 08:46; Stop 12/28/16 at 08:47; Status DC Lidocaine/Sodium Bicarbonate 20 ml 20 ml STK-MED ONCE IJ ; Start 12/28/16 at 08: 47; Stop 12/28/16 at 08:48; Status DC Heparin Sodium/ Sodium Chloride 500 ml @ As Directed STK-MED ONCE .ROUTE ; Start 12/28/16 at 08:47; Stop 12/28/16 at 08:48; Status DC Lidocaine/Sodium Bicarbonate (Buffered Lidocaine 1%) 3 ml 1X ONCE IJ Last administered on 12/28/16 10:10; Start 12/28/16 at 09:00; Stop 12/28/16 at 09:01 ; Status DC Heparin Sodium/ Sodium Chloride 60 unit 1X ONCE IV Last administered on 10:11; Start 12/28/16 at 09:00; Stop 12/28/16 at 09:01; Status DC Heparin Sodium (Porcine) (Heparin Sodium) 2,500 unit 1X ONCE INT CAT Last administered on 12/28/16 10:10; Start 12/28/16 at 09:00; Stop 12/28/16 at 09:01 ; Status DC Midazolam HCl (Versed) 2 mg STK-MED ONCE .ROUTE ; Start 12/28/16 at 09:41; Stop 12/28/16 at 09:42; Status DC Saliva Substitute (Biotene Moisturizing Mouth) 2 spray PRN Q15MIN PRN PO DRY MOUTH Last administered on 12/31/16 17:53; Start 12/28/16 at 13:15 Gabapentin (Neurontin) 300 mg DAILY PO Last administered on 01/03/17 09:06; Start 12/29/16 at 09:00; Stop 01/03/17 at 18:21; Status DC Acetaminophen (Tylenol) 650 mg PRN Q6HRS PRN PO MILD PAIN Last administered on 01/08/17 03:23; Start 12/28/16 at 18:15 Ondansetron HCl (Zofran) 4 mg PRN Q6HRS PRN IV NAUSEA/VOMITING Last administered on 12/29/16 11:10; Start 12/29/16 at 10:45; Stop 12/29/16 at 13:53 ; Status DC Ondansetron HCl (Zofran) 8 mg PRN Q8HRS PRN IV NAUSEA/VOMITING Last administered on 12/31/16 03:35; Start 12/29/16 at 14:00; Stop 12/31/16 at 09:03 ; Status DC Prochlorperazine Edisylate 10 mg 10 mg 1X ONCE IV Last administered on 14:00; Start 12/29/16 at 14:00; Stop 12/29/16 at 14:01; Status DC Sodium Chloride 500 ml @ 500 mls/hr 1X ONCE IV Last administered on 23:20; Start 12/29/16 at 23:30; Stop 12/30/16 at 00:29; Status DC Sodium Chloride 500 ml @ 500 mls/hr 1X ONCE IV Last administered on 00:05; Start 12/30/16 at 00:00; Stop 12/30/16 at 00:59; Status DC Sodium Chloride 1,000 ml @ 1,000 mls/hr Q1H PRN IV hypotension; Start 12/30/16 at 08:03; Stop 12/30/16 at 14:02; Status DC Albumin Human (Albuminar) 200 ml @ 200 mls/hr 1X PRN PRN IV Hypotension Last administered on 12/30/16 09:22; Start 12/30/16 at 08:15; Stop 12/30/16 at 14:14 ; Status DC Sodium Chloride (Normal Saline Flush) 10 ml 1X PRN PRN IV AP catheter pack; Start 12/30/16 at 08:15; Stop 12/31/16 at 08:14; Status DC Sodium Chloride (Normal Saline Flush) 10 ml 1X PRN PRN IV [employer] catheter pack; Start 12/30/16 at 08:15; Stop 12/31/16 at 08:14; Status DC Info (PHARMACY MONITORING -- do not chart) 1 each PRN DAILY PRN MC SEE COMMENTS ; Start 12/30/16 at 08:15; Stop 01/08/17 at 12:44; Status DC Info (PHARMACY MONITORING -- do not chart) 1 each PRN DAILY PRN MC SEE COMMENTS ; Start 12/30/16 at 08:15; Status UNV Paricalcitol (Zemplar) 5 mcg 3X/WEEK IV Last administered on 01/03/17 09:06; Start 12/31/16 at 09:00; Stop 01/04/17 at 11:03; Status DC Calcium Acetate 1334 mg 1,334 mg TIDWMEALS PO Last administered on 01/04/17 09 :46; Start 12/30/16 at 12:00; Stop 01/04/17 at 11:03; Status DC Albumin Human (Plasmanate) 500 ml @ 120 mls/hr Q4HRS IV Last administered on 16:45; Start 12/30/16 at 12:00; Stop 12/30/16 at 19:59; Status DC Ondansetron HCl (Zofran) 8 mg PRN Q6HRS PRN IV NAUSEA/VOMITING, 2ND CHOICE Last administered on 01/12/17 11:55; Start 12/31/16 at 08:58 Lorazepam (Ativan) 0.5 mg PRN Q4HRS PRN IV ANXIETY / AGITATION Last administered on 01/08/17 12:50; Start 12/31/16 at 09:00 Prochlorperazine Edisylate (Compazine) 10 mg PRN Q6HRS PRN IM NAUSEA/VOMITING Last administered on 12/31/16 09:15; Start 12/31/16 at 09:00; Stop 01/01/17 at 11:48; Status DC Metoclopramide HCl 5 mg 5 mg PRN Q6HRS PRN IV NAUSEA/VOMITING, 1ST CHOICE Last administered on 01/01/17 09:42; Start 12/31/16 at 11:45 Magnesium Sulfate/ Dextrose 50 ml @ 25 mls/hr 1X ONCE IV Last administered on 12/31/16 17:54; Start 12/31/16 at 15:00; Stop 12/31/16 at 16:59; Status DC Albumin Human (Plasmanate) 500 ml @ 75 mls/hr Q6H40M IV Last administered on 03:44; Start 12/31/16 at 15:15; Stop 01/01/17 at 11:14; Status DC Prochlorperazine Edisylate (Compazine) 10 mg PRN Q6HRS PRN IV NAUSEA/VOMITING, 3RD CHOICE Last administered on 01/01/17 17:38; Start 01/01/17 at 11:45 Potassium Chloride (Klor-Con) 40 meq 1X ONCE PO Last administered on 13:02; Start 01/01/17 at 12:00; Stop 01/01/17 at 12:01; Status DC Furosemide (Lasix) 40 mg 1X ONCE IVP Last administered on 01/01/17 14:24; Start 01/01/17 at 14:00; Stop 01/01/17 at 14:01; Status DC Albuterol/ Ipratropium (Duoneb) 3 ml PRN Q6HRS PRN NEB SHORTNESS OF BREATH Last administered on 01/05/17 11:26; Start 01/01/17 at 13:45; Stop 01/05/17 at 22:40; Status DC Furosemide (Lasix) 40 mg 1X ONCE IVP Last administered on 01/02/17 11:43; Start 01/02/17 at 10:45; Stop 01/02/17 at 10:46; Status DC Potassium Chloride 40 meq 40 meq 1X ONCE PO Last administered on 01/02/17 13: 21; Start 01/02/17 at 13:15; Stop 01/02/17 at 13:16; Status DC Heparin Sodium/ Dextrose 500 ml @ 0 mls/hr CONT PRN IV SEE I/O RECORD Last administered on 01/08/17 13:35; Start 01/02/17 at 14:45; Stop 01/08/17 at 15:48 ; Status DC Heparin Sodium (Porcine) (Heparin Sodium) 3,150 unit PRN Q6HRS PRN IV FOR UFH LEVEL LESS THAN 0.2; Start 01/02/17 at 14:45; Stop 01/08/17 at 15:48; Status DC Heparin Sodium (Porcine) (Heparin Sodium) 1,550 unit PRN Q6HRS PRN IV FOR UFH LEVEL 0.2 - 0.29; Start 01/02/17 at 14:45; Stop 01/08/17 at 15:48; Status DC Warfarin Sodium (Coumadin Per Pharmacy) 1 each PRN DAILY PRN MC PER PROTOCOL Last administered on 01/03/17 11:34; Start 01/02/17 at 14:45; Stop 01/03/17 at 23:01; Status DC Warfarin Sodium (Coumadin) 5 mg 1X WARF ONCE PO Last administered on 17:41; Start 01/02/17 at 16:00; Stop 01/02/17 at 16:01; Status DC Warfarin Sodium (Coumadin - No Dose Today) 1 each 1X WARF ONCE MC ; Start 01/03 at 16:00; Stop 01/03/17 at 23:01; Status DC Cefpodoxime Proxetil (Vantin) 200 mg BID PO Last administered on 01/05/17 08: 53; Start 01/03/17 at 21:00; Stop 01/05/17 at 09:37; Status DC Cyanocobalamin (Vitamin B-12) 1,000 mcg QMONTH IM Last administered on 09:49; Start 01/04/17 at 09:00 Gabapentin 900 mg 900 mg TID PO Last administered on 01/12/17 08:03; Start at 21:00 Sodium Chloride (Iv Sodium Chloride 0.9% 1000ml Bag) 1,000 ml @ 75 mls/hr [id number] IV Last administered on 01/04/17 09:46; Start 01/03/17 at 18:45; Stop 01/04/17 at 11:04; Status DC Potassium Chloride 20 meq 20 meq 1X ONCE PO Last administered on 01/03/17 18: 56; Start 01/03/17 at 18:45; Stop 01/03/17 at 18:46; Status DC Magnesium Sulfate/ Dextrose 50 ml @ 25 mls/hr PRN DAILY PRN IV for Mag < 1.7 on am labs; Start 01/04/17 at 10:45; Status UNV Potassium Chloride 50 ml @ 50 mls/hr PRN Q6HRS PRN IV For K < 3.7 Last administered on 01/05/17 13:10; Start 01/04/17 at 10:45 Potassium Chloride 50 ml @ 50 mls/hr PRN Q2HR PRN IV total of 40mEq for K < 3.5 Last administered on 01/04/17 13:46; Start 01/04/17 at 10:45 Albumin Human (Albuminar) 100 ml @ 100 mls/hr TID IV Last administered on 01/06 08:53; Start 01/04/17 at 14:00; Stop 01/06/17 at 09:59; Status DC Warfarin Sodium (Coumadin) 4 mg DAILY16 PO Last administered on 01/08/17 17:15 ; Start 01/04/17 at 17:00; Stop 01/09/17 at 08:15; Status DC Warfarin Sodium 1 each 1 each PRN DAILY PRN MC SEE COMMENTS Last administered on 01/10/17 15:26; Start 01/04/17 at 17:00; Stop 01/11/17 at 06:14; Status DC Magnesium Sulfate/ Dextrose 100 ml @ 100 mls/hr 1X ONCE IV Last administered on 01/05/17 11:35; Start 01/05/17 at 11:00; Stop 01/05/17 at 11:59; Status DC Magnesium Sulfate/ Dextrose 50 ml @ 25 mls/hr PRN DAILY PRN IV for Mag < 1.7 on am labs Last administered on 01/08/17 09:27; Start 01/05/17 at 11:00 Potassium Chloride (KCl Premix 20meq) 50 ml @ 25 mls/hr Q2HR IV Last administered on 01/05/17 23:42; Start 01/05/17 at 16:00; Stop 01/05/17 at 19:59 ; Status DC Iohexol (Omnipaque 300 Mg/ml) 60 ml 1X ONCE IV ; Start 01/05/17 at 16:15; Stop 01/05/17 at 16:16; Status DC Iohexol (Omnipaque 240 Mg/ml) 30 ml 1X ONCE PO Last administered on 01/05/17 15:45; Start 01/05/17 at 16:15; Stop 01/05/17 at 16:16; Status DC Info (Do NOT chart on this entry -- for MONITORING) 1 each PRN DAILY PRN MC SEE COMMENTS; Start 01/05/17 at 16:15; Stop 01/07/17 at 16:14; Status DC Albuterol/ Ipratropium (Duoneb) 3 ml RTQID NEB Last administered on 01/12/17 08 :23; Start 01/05/17 at 20:00 Budesonide (Pulmicort) 0.5 mg RTBID NEB Last administered on 01/12/17 08:23; Start 01/05/17 at 20:00 Furosemide (Lasix) 20 mg 1X ONCE IVP Last administered on 01/05/17 22:04; Start 01/05/17 at 22:00; Stop 01/05/17 at 22:01; Status DC Albuterol Sulfate (Ventolin Neb Soln) 2.5 mg PRN Q6HRS PRN NEB SHORTNESS OF BREATH Last administered on 01/08/17 03:37; Start 01/05/17 at 22:40 Furosemide (Lasix) 40 mg 1X ONCE IVP Last administered on 01/07/17 11:50; Start 01/07/17 at 11:30; Stop 01/07/17 at 11:31; Status DC Furosemide 40 mg 40 mg DAILY IVP Last administered on 01/12/17 08:04; Start at 09:00 Albumin Human (Albuminar) 100 ml @ 100 mls/hr DAILY IV Last administered on 08:22; Start 01/08/17 at 17:00; Stop 01/10/17 at 16:59; Status DC Tramadol HCl (Ultram) 50 mg PRN Q6HRS PRN PO MODERATE PAIN Last administered on 01/08/17 22:28; Start 01/08/17 at 22:15 Phytonadione (Vitamin K) 10 mg 1X ONCE SQ Last administered on 01/10/17 09:42 ; Start 01/10/17 at 09:15; Stop 01/10/17 at 09:16; Status DC Heparin Sodium (Porcine) (Heparin Sodium) 10,000 unit STK-MED ONCE .ROUTE ; Start 01/10/17 at 10:39; Stop 01/10/17 at 10:40; Status DC Lidocaine/Sodium Bicarbonate 20 ml 20 ml STK-MED ONCE IJ ; Start 01/10/17 at 10: 39; Stop 01/10/17 at 10:40; Status DC Heparin Sodium/ Sodium Chloride 500 ml @ As Directed STK-MED ONCE .ROUTE ; Start 01/10/17 at 10:39; Stop 01/10/17 at 10:40; Status DC Lidocaine/Sodium Bicarbonate (Buffered Lidocaine 1%) 3 ml 1X ONCE IJ Last administered on 01/10/17 13:27; Start 01/10/17 at 12:30; Stop 01/10/17 at 12:31; Status DC Heparin Sodium/ Sodium Chloride 60 unit 1X ONCE IV Last administered on 13:28; Start 01/10/17 at 12:30; Stop 01/10/17 at 12:31; Status DC Heparin Sodium (Porcine) 2800 unit 2,800 unit 1X ONCE INT CAT Last administered on 01/10/17 13:28; Start 01/10/17 at 12:30; Stop 01/10/17 at 12:31; Status DC Phytonadione/ Sodium Chloride (Vitamin K/Iv Sodium Chloride 0.9% 50ml) 51 ml @ 102 mls/hr 1X ONCE IV Last administered on 01/11/17 14:22; Start 01/11/17 at 11 :30; Stop 01/11/17 at 11:59; Status DC Active Scripts Active Reported Gabapentin 300 Mg Capsule 900 Mg PO TID Claritin (Loratadine) 10 Mg Tablet 1 Tab PO DAILY PRN Bactrim 400-80 Mg Tablet (Sulfamethoxazole/Trimethoprim) 1 Each Tablet 1 Tab PO BID Gabapentin 300 Mg Capsule 300 Mg PO TID Zestril (Lisinopril) 10 Mg Tablet 10 Mg PO DAILY Cyanocobalamin Injection (Cyanocobalamin (Vitamin B-12)) 1,000 Mcg/1 Ml Vial 1, 000 Mcg QMONTH Percocet 5-325 Mg Tablet (Oxycodone/Acetaminophen) 1 Each Tablet 1-2 Tab PO Q4- 6HRS Prilosec Otc (Omeprazole Magnesium) 20 Mg Tablet.dr 20 Mg PO DAILY Allergies Allergies: Coded Allergies: No Known Drug Allergies (Unverified , 12/27/16) ROS Review of System Patient denies fevers, chills, weight loss, dyspnea, angina, abdominal pain, change in bowels, or dysuria. 14 point review of systems is negative. Physical Exam Physical Examination PHYSICAL EXAMINATION: Vital signs: see above. General appearance is normal and in no acute distress. HEENT: Normocephalic and nontraumatic. Eyes, nose, ears, and throat are unremarkable. Neck is supple. No lymphadenopathy. No bruits are heard over the carotid artery. No crepitus. NEUROLOGICAL EXAMINATION: Mental Status Examination: Alert. Knows location, not date, has some trouble with complex commands. There is asterixis, loss of tone with hands outstretched , but no tremor. Pupils are equal round and reactive to light and accommodation. Funduscopic exam: No papilledema. Extraocular movements are intact. Visual field exam shows no defect on the direct confrontation. No motor or sensory deficits on the facial exam. Uvula in the midline and the soft palate elevated symmetrically. No deviation of the tongue to any direction. Gross hearing is normal. Shoulder shrug normal. Muscle tone is normal. Muscle strength is 3/5. Deep tendon reflexes are 1+ all around. Plantar reflex is with flexion response bilaterally. [id number] test performance is accurate. Alternative movements are accurate. Gait not tested. Sensory exam shows no deficits. No cerebellar signs are elicited. Vitals VITALS Vital Signs Date Time Temp Pulse Resp B/P Pulse Ox O2 Delivery O2 Flow Rate FiO2 01/12/17 15:14 77 18 136/63 98 Nasal Cannula 4.0 01/12/17 12:00 97.8 97.8 Labs Labs Laboratory Tests Test 01/11/17 05:40 01/11/17 06:00 01/12/17 05:14 01/12/17 10:10 Sodium Level 137mmol/L (136-145) 139mmol/L (136-145) Potassium Level 4.3mmol/L (3.5-5.1) 4.5mmol/L (3.5-5.1) Chloride Level 103mmol/L (98-107) 104mmol/L (98-107) Carbon Dioxide Level 26mmol/L (21-32) 27mmol/L (21-32) Anion Gap 8 (6-14) 8 (6-14) Blood Urea Nitrogen 36mg/dL (7-20) 34mg/dL (7-20) Creatinine 2.3mg/dL (0.6-1.0) 1.6mg/dL (0.6-1.0) Estimated GFR (Cockcroft-Gault) 21.2 32.2 Glucose Level 97mg/dL (70-99) 93mg/dL (70-99) Calcium Level 7.8mg/dL (8.5-10.1) 7.8mg/dL (8.5-10.1) Phosphorus Level 5.0mg/dL (2.6-4.7) 3.9mg/dL (2.6-4.7) Magnesium Level 2.2mg/dL (1.8-2.4) Albumin 3.1g/dL (3.4-5.0) 3.1g/dL (3.4-5.0) Prothrombin Time 17.6SEC (11.7-14.0) 14.6SEC (11.7-14.0) Prothromb Time International Ratio 1.5 (0.8-1.1) 1.2 (0.8-1.1) Fibrinogen 330mg/dL (200-440) Ammonia 25mcmol/L (11-34) Laboratory Tests Test 01/12/17 05:14 01/12/17 10:10 Prothrombin Time 14.6SEC (11.7-14.0) Prothromb Time International Ratio 1.2 (0.8-1.1) Sodium Level 139mmol/L (136-145) Potassium Level 4.5mmol/L (3.5-5.1) Chloride Level 104mmol/L (98-107) Carbon Dioxide Level 27mmol/L (21-32) Anion Gap 8 (6-14) Blood Urea Nitrogen 34mg/dL (7-20) Creatinine 1.6mg/dL (0.6-1.0) Estimated GFR (Cockcroft-Gault) 32.2 Glucose Level 93mg/dL (70-99) Calcium Level 7.8mg/dL (8.5-10.1) Phosphorus Level 3.9mg/dL (2.6-4.7) Albumin 3.1g/dL (3.4-5.0) Ammonia 25mcmol/L (11-34) Assessment/Plan Assessment/Plan Impression: Metabolic encephalopathy Asterixis Consider gabapentin toxicity given her renal insufficiency and the high dose she is taking. Can cause the entire picture History of 2 different cancers Recommendations: MRI of the brain Electroencephalogram Hold gabapentin I discussed my findings with the patient's . I discussed my findings with Dr. Rivera Thank you for letting me help with the patient's care. JHOANA OSMAN MD January 12, 2017 15:49
[2017-01-12] MEDS: ACETAMINOPHEN 325 MG TABLET. PO PRN (17:23)
[2017-01-12 18:47] LABS: BILIRUBIN,URINE NEGATIVE (NEG); GLUCOSE,URINE NEGATIVE (NEG); NITRITE,URINE NEGATIVE (NEG); PROTEIN,URINE NEGATIVE (NEG-TRACE); UROBILINOGEN,URINE 0.2 mg/dL (0.2 mg/dL)
[2017-01-12 18:53] LABS: BACTERIA,URINE MANY /HPF (0-FEW); RBC,URINE 20-40 /HPF (0-2); YEAST,URINE PRESENT /HPF
[2017-01-13 03:02] VITALS: BP 137/64
[2017-01-13 07:00] VITALS: BP 141/62
[2017-01-13 07:28] LABS: TOTAL PROTEIN 5.6 g/dL (6.4-8.2)
[2017-01-13 07:29] LABS: ALBUMIN 2.8 g/dL (3.4-5.0); CALCIUM 7.9 mg/dL (8.5-10.1); GFR 55.3; POTASSIUM 4.2 mmol/L (3.5-5.1); TOTAL BILIRUBIN 1.3 mg/dL (0.2-1.0)
--- NOTE | 2017-01-13 07:34 | RAD ---
Portable chest, 01/13/2017: History: Congestive heart failure Comparison is made to a study from 01/10/2017. A right Port-A-Cath extends into the superior vena cava. A left jugular dialysis type catheter extends into the right atrium. The heart is enlarged. The pulmonary vascularity remains prominent with loss of vascular margination. There is a moderate persistent left basilar opacity suggesting pleural fluid and atelectasis/infiltrate. The right base has largely cleared with better definition of the hemidiaphragm. IMPRESSION: 1. Improving congestive heart failure with partial clearing of the right lung base. 2. Moderate persistent left retrocardiac opacity compatible with pleural fluid and atelectasis/consolidation.
[2017-01-13 08:06] LABS: INR 1.2 (0.8-1.1)
--- NOTE | 2017-01-13 08:21 | RAD ---
PROCEDURE MRI brain without contrast. HISTORY Altered mental status. Cholangiocarcinoma. TECHNIQUE Sagittal T1, axial T1, axial T2, axial FLAIR, axial T2 gradient, coronal T2, and diffusion imaging with ADC map were performed. Contrast was not administered given renal status. COMPARISON None provided. FINDINGS Ventricles and sulci are within limits for age. A few scattered FLAIR hyperintensities in the supratentorial white matter are nonspecific but most suggestive of minimal small vessel ischemic disease. There is no acute intracranial hemorrhage or extra-axial fluid collection. There is no mass effect or midline shift. There is no restricted diffusion to suggest an acute infarct. Cervicomedullary junction is unremarkable. Intracranial flow voids are preserved. There is abnormal signal adjacent to the basilar artery flow void. This is probably artifactual. Less likely it could represent fusiform aneurysm. There is presumed asymmetric pneumatization of the petrous apices. There is minimal ethmoid mucosal thickening. Clival marrow signal is preserved. IMPRESSION - No acute intracranial findings. - Brain parenchymal volume loss and minimal probable small-vessel ischemic disease. - Abnormal signal on T2 imaging adjacent to the basilar artery flow void, probably artifactual although consider CT angiogram head to evaluate for potential fusiform aneurysm with intramural thrombus. - Presumed asymmetric pneumatization of the petrous apices. This can also be evaluated by CT to exclude other possibilities. Electronically signed by: Jd Marion MD (January 13, 2017 08:20:19)
[2017-01-13] MEDS: BUDESONIDE 0.5 MG/2 ML NEBU. NEB SCH (08:40)
[2017-01-13] MEDS: IPRATRPIUM/ALBUTEROL 0.5/2.5MG 3 ML NEBU. NEB SCH ×2 (08:40→11:28)
[2017-01-13 08:45] LABS: BASO % 1 % (0-3); EOS % 1 % (0-3); HEMATOCRIT 21.5 % (36.0-47.0); HEMOGLOBIN 7.3 g/dL (12.0-15.5); LYMPH # 0.3 x10^3/uL (1.0-4.8); LYMPH % 5 % (24-48); MEAN CORPUSCULAR HEMOGLOBIN 33 pg (25-35); MEAN CORPUSCULAR HGB CONC 34 g/dL (31-37); MEAN CORPUSCULAR VOLUME 97 fL (79-100); MONO % 38 % (0-9); NEUT % 57 % (31-73); PLATELET COUNT 301 x10^3/uL (140-400); RED BLOOD COUNT 2.22 x10^6/uL (3.50-5.40); RED CELL DISTRIBUTION WIDTH 23.1 % (11.5-14.5); WHITE BLOOD COUNT 7.1 x10^3/uL (4.0-11.0)
[2017-01-13] MEDS: PANTOPRAZOLE 40 MG TABLET.DR. PO SCH (09:11)
[2017-01-13] MEDS: FUROSEMIDE 40 MG/4 ML VIAL. IVP SCH (09:11)
--- NOTE | 2017-01-13 09:49 | PDOC ---
SUBJECTIVE ROS ARTURO doing and feeling better overall CVS: no Orthopnea, no CP RESP: no SOB, no SEGUNDO GI: no Nausea, no Vomiting : no Dysuria, no Urgency OBJECTIVE Vital Signs Vital Signs Date Time Temp Pulse Resp B/P (MAP) Pulse Ox O2 Delivery O2 Flow Rate FiO2 01/13/17 08:41 99 Nasal Cannula 4.0 01/13/17 03:02 97.7 74 18 137/64 (88) 97.7 I & 0 Intake and Output 01/13/17 07:00 Intake Total 650 ml Output Total 2900 ml Balance -2250 ml Intake Oral 650 ml Output Urine Total 2900 ml PHYSICAL EXAM Physical Exam GEN: Awake, Oriented x 3, In no distress EYES: Vision Unchanged, Conjunctiva Normal EN: No EN Drainage, Mucous Membranes moist NECK: no JVD, no JVP, Supple, no Thyromegaly CVS: S1S2, no Murmur, No Gallop, No Rub,+ Edema RESP: ? Rare basal Rales, no Rhonchi,no Acc. Muscle Use GI: BS + ve, NO Bruit, Non Tender, Non Distended : no CVA tenderness, no Suprapubic Tenderness DIAGNOSIS/ASSESSMENT Assessment & Plan Acute renal failure, - now resolved Anemia. Defer to Dr. Connell et al, she does have a retroperitoneal hematoma and has history of blood transfusion. History of hypertension, occ hypotension - now normotensive Edema. This has been attributed to capillary leak associated with Gemzar. OK with Lasix as has been recommended by other MDs to optimize pulm status History of hematuria - may need to see URO as OP if persistent as OP. was informed of same. Will sign off - pl call with Qs COMMENT/RELEVANT DATA Meds Current Medications Medications (Trade) Dose Ordered Sig/Shahab Start Time Stop Time Status Last Admin Dose Admin Acetaminophen (Tylenol) 650 mg PRN Q6HRS PRN 12/28/16 18:15 01/12/17 17:23 650 MG Albumin Human 100 ml @ 100 mls/hr DAILY 01/08/17 17:00 01/10/17 16:59 DC 01/10/17 08:22 100 MLS/HR Albuterol Sulfate (Ventolin Neb Soln) 2.5 mg PRN Q6HRS PRN 01/05/17 22:40 01/08/17 03:37 2.5 MG Albuterol/ Ipratropium (Duoneb) 3 ml RTQID 01/05/17 20:00 01/13/17 08:40 3 ML Budesonide (Pulmicort) 0.5 mg RTBID 01/05/17 20:00 01/13/17 08:40 0.5 MG Calcium Acetate (Phoslo) 1,334 mg TIDWMEALS 12/30/16 12:00 01/04/17 11:03 DC 01/04/17 09:46 1,334 MG Calcium Chloride 2000 mg/Sodium Chloride 120 ml @ 240 mls/hr 1X ONCE 12/28/16 08:00 12/28/16 08:29 DC 12/28/16 08:54 240 MLS/HR Cefpodoxime Proxetil (Vantin) 200 mg BID 01/03/17 21:00 01/05/17 09:37 DC 01/05/17 08:53 200 MG Cetirizine HCl (Zyrtec) 10 mg PRN DAILY PRN 12/28/16 09:00 Cyanocobalamin (Vitamin B-12) 1,000 mcg QMONTH 01/04/17 09:00 01/04/17 09:49 1,000 MCG Diphenhydramine HCl (Benadryl) 25 mg 1X ONCE 12/27/16 08:15 12/27/16 08:22 DC 12/27/16 09:12 25 MG Fentanyl Citrate (Fentanyl 2ml Vial) 25 mcg PRN QID PRN 12/27/16 16:45 12/29/16 21:00 DC Furosemide (Lasix) 40 mg DAILY 01/08/17 09:00 01/13/17 09:11 40 MG Gabapentin (Neurontin) 900 mg TID 01/03/17 21:00 01/12/17 15:41 DC 01/12/17 08:03 900 MG Heparin Sodium (Porcine) (Heparin Sodium) 2,800 unit 1X ONCE 01/10/17 12:30 01/10/17 12:31 DC 01/10/17 13:28 2,800 UNIT Heparin Sodium/ Dextrose 500 ml @ 0 mls/hr CONT PRN 01/02/17 14:45 01/08/17 15:48 DC 01/08/17 13:35 25.2 MLS/HR Heparin Sodium/ Sodium Chloride 60 unit 1X ONCE 01/10/17 12:30 01/10/17 12:31 DC 01/10/17 13:28 60 UNIT Info (Do NOT chart on this entry -- for MONITORING) 1 each PRN DAILY PRN 01/05/17 16:15 01/07/17 16:14 DC Info (PHARMACY MONITORING -- do not chart) 1 each PRN DAILY PRN 12/30/16 08:15 UNV Iohexol (Omnipaque 240 Mg/ml) 30 ml 1X ONCE 01/05/17 16:15 01/05/17 16:16 DC 01/05/17 15:45 30 ML Iohexol (Omnipaque 300 Mg/ml) 60 ml 1X ONCE 01/05/17 16:15 01/05/17 16:16 DC Lidocaine/Sodium Bicarbonate (Buffered Lidocaine 1%) 3 ml 1X ONCE 01/10/17 12:30 01/10/17 12:31 DC 01/10/17 13:27 3 ML Linezolid 300 ml @ 300 mls/hr Q12HR 12/28/16 09:00 12/31/16 10:43 DC 12/31/16 09:13 300 MLS/HR Lisinopril (Prinivil) 10 mg DAILY 12/28/16 09:00 12/28/16 09:00 DC Lorazepam (Ativan) 0.5 mg PRN Q4HRS PRN 12/31/16 09:00 01/08/17 12:50 0.5 MG Magnesium Sulfate/ Dextrose 50 ml @ 25 mls/hr PRN DAILY PRN 01/05/17 11:00 01/08/17 09:27 25 MLS/HR Metoclopramide HCl (Reglan) 5 mg PRN Q6HRS PRN 12/31/16 11:45 01/01/17 09:42 5 MG Micafungin Sodium 100 mg/Dextrose 100 ml @ 100 mls/hr Q24H 12/28/16 08:00 12/31/16 10:43 DC 12/31/16 09:13 100 MLS/HR Midazolam HCl (Versed) 2 mg STK-MED ONCE 12/28/16 09:41 12/28/16 09:42 DC Ondansetron HCl (Zofran) 8 mg PRN Q6HRS PRN 12/31/16 08:58 01/12/17 11:55 4 MG Oxycodone/ Acetaminophen (Percocet 5/325) 2 tab Q4HRS PRN 12/27/16 16:45 01/11/17 21:50 2 TAB Pantoprazole Sodium (Protonix) 40 mg DAILYAC 12/28/16 07:30 01/13/17 09:11 40 MG Paricalcitol (Zemplar) 5 mcg 3X/WEEK 12/31/16 09:00 01/04/17 11:03 DC 01/03/17 09:06 5 MCG Phytonadione (Vitamin K) 10 mg 1X ONCE 01/10/17 09:15 01/10/17 09:16 DC 01/10/17 09:42 10 MG Phytonadione 10 mg/Sodium Chloride 51 ml @ 102 mls/hr 1X ONCE 01/11/17 11:30 01/11/17 11:59 DC 01/11/17 14:22 102 MLS/HR Piperacillin Sod/ Tazobactam Sod (Zosyn Per Pharmacy) 1 each PRN DAILY PRN 12/27/16 17:30 12/28/16 07:27 DC Piperacillin Sod/ Tazobactam Sod 2.25 gm/Sodium Chloride 50 ml @ 100 mls/hr Q8HRS 12/28/16 14:00 01/03/17 13:01 DC 01/03/17 06:04 100 MLS/HR Piperacillin Sod/ Tazobactam Sod 3.375 gm/Sodium Chloride 50 ml @ 100 mls/hr 1X ONCE 12/27/16 18:00 12/27/16 18:29 DC 12/27/16 18:07 100 MLS/HR Potassium Chloride 50 ml @ 25 mls/hr Q2HR 01/05/17 16:00 01/05/17 19:59 DC 01/05/17 23:42 25 MLS/HR Potassium Chloride (Klor-Con) 20 meq 1X ONCE 01/03/17 18:45 01/03/17 18:46 DC 01/03/17 18:56 20 MEQ Prochlorperazine Edisylate (Compazine) 10 mg PRN Q6HRS PRN 01/01/17 11:45 01/01/17 17:38 10 MG Saliva Substitute (Biotene Moisturizing Mouth) 2 spray PRN Q15MIN PRN 12/28/16 13:15 12/31/16 17:53 2 SPRAY Sodium Bicarbonate 150 meq/Dextrose 1,150 ml @ 100 mls/hr [id number] 12/28/16 09:00 12/30/16 08:59 DC 12/30/16 06:08 100 MLS/HR Sodium Bicarbonate 50 meq Q2H 12/28/16 08:30 12/28/16 10:31 DC 12/28/16 15:33 50 MEQ Sodium Chloride 1,000 ml @ 75 mls/hr [id number] 01/03/17 18:45 01/04/17 11:04 DC 01/04/17 09:46 75 MLS/HR Sodium Chloride (Normal Saline Flush) 10 ml 1X PRN PRN 12/30/16 08:15 12/31/16 08:14 DC Tramadol HCl (Ultram) 50 mg PRN Q6HRS PRN 01/08/17 22:15 01/08/17 22:28 50 MG Vancomycin HCl (Vanco Per Pharmacy) 1 each PRN DAILY PRN 12/27/16 17:30 12/27/16 18:51 DC 12/27/16 18:45 1 EACH Vancomycin HCl 1.5 gm/Sodium Chloride 500 ml @ 250 mls/hr Q48H 12/29/16 20:00 12/29/16 20:00 DC Vancomycin HCl 2 gm/Sodium Chloride 500 ml @ 250 mls/hr 1X ONCE 12/27/16 17:45 12/27/16 18:51 DC Warfarin Sodium (Coumadin - No Dose Today) 1 each 1X WARF ONCE 01/03/17 16:00 01/03/17 23:01 DC Warfarin Sodium (Coumadin Per Pharmacy) 1 each PRN DAILY PRN 01/02/17 14:45 01/03/17 23:01 DC 01/03/17 11:34 1 EACH Warfarin Sodium (Coumadin Per Physician) 1 each PRN DAILY PRN 01/04/17 17:00 01/11/17 06:14 DC 01/10/17 15:26 1 EACH Warfarin Sodium (Coumadin) 4 mg DAILY16 01/04/17 17:00 01/09/17 08:15 DC 01/08/17 17:15 4 MG Lab Laboratory Tests Test 01/12/17 10:10 01/12/17 14:20 01/13/17 05:00 01/13/17 06:20 Ammonia 25 mcmol/L (11-34) Urine Collection Type Unknown Urine Color Yellow Urine Clarity Clear Urine pH 5.0 Urine Specific [place] 1.010 Urine Protein Negative mg/dL (NEG-TRACE) Urine Glucose (UA) Negative mg/dL (NEG) Urine Ketones (Stick) Negative mg/dL (NEG) Urine Blood Large (NEG) Urine Nitrite Negative (NEG) Urine Bilirubin Negative (NEG) Urine Urobilinogen Dipstick 0.2 mg/dL (0.2 mg/dL) Urine Leukocyte Esterase Moderate (NEG) Urine RBC 20-40 /HPF (0-2) Urine WBC 11-20 /HPF (0-4) Urine Bacteria Many /HPF (0-FEW) Urine Mucus Slight /LPF Urine Yeast Present /HPF Sodium Level 143 mmol/L (136-145) Potassium Level 4.2 mmol/L (3.5-5.1) Chloride Level 106 mmol/L (98-107) Carbon Dioxide Level 29 mmol/L (21-32) Anion Gap 8 (6-14) Blood Urea Nitrogen 29 mg/dL (7-20) Creatinine 1.0 mg/dL (0.6-1.0) Estimated GFR (Cockcroft-Gault) 55.3 BUN/Creatinine Ratio 29 (6-20) Glucose Level 85 mg/dL (70-99) Calcium Level 7.9 mg/dL (8.5-10.1) Total Bilirubin 1.3 mg/dL (0.2-1.0) Aspartate Amino Transf (AST/SGOT) 37 U/L (15-37) Alanine Aminotransferase (ALT/SGPT) 20 U/L (14-59) Alkaline Phosphatase 152 U/L (46-116) Total Protein 5.6 g/dL (6.4-8.2) Albumin 2.8 g/dL (3.4-5.0) Albumin/Globulin Ratio 1.0 (1.0-1.7) White Blood Count 7.1 x10^3/uL (4.0-11.0) Red Blood Count 2.22 x10^6/uL (3.50-5.40) Hemoglobin 7.3 g/dL (12.0-15.5) Hematocrit 21.5 % (36.0-47.0) Mean Corpuscular Volume 97 fL (79-100) Mean Corpuscular Hemoglobin 33 pg (25-35) Mean Corpuscular Hemoglobin Concent 34 g/dL (31-37) Red Cell Distribution Width 23.1 % (11.5-14.5) Platelet Count 301 x10^3/uL (140-400) Neutrophils (%) (Auto) 57 % (31-73) Lymphocytes (%) (Auto) 5 % (24-48) Monocytes (%) (Auto) 38 % (0-9) Eosinophils (%) (Auto) 1 % (0-3) Basophils (%) (Auto) 1 % (0-3) Neutrophils # (Auto) 4.0 x10^3uL (1.8-7.7) Lymphocytes # (Auto) 0.3 x10^3/uL (1.0-4.8) Monocytes # (Auto) 2.7 x10^3/uL (0.0-1.1) Eosinophils # (Auto) 0.0 x10^3/uL (0.0-0.7) Basophils # (Auto) 0.0 x10^3/uL (0.0-0.2) Prothrombin Time 14.0 SEC (11.7-14.0) Prothromb Time International Ratio 1.2 (0.8-1.1) DAKOTA VINCENT MD January 13, 2017 09:49
--- NOTE | 2017-01-13 09:55 | PDOC ---
PROGRESS NOTES Chief Complaint Chief Complaint CC: -cellulitis bilaterally lower extremities -acute renal failure -cholangiocarcinoma -hypertension -peripheral neuropathy -DVT -PE -Cholecystectomy -hysterectomy -oophorectomy -salpingectomy -UTI -anxiety -skin cancer History of Present Illness History of Present Illness Neuro workup to be completed today lethargic, some hand weakness occasionally She still has intentional tremors in hands. reports pt still has some confusion. Pt doing well after having HD cath put in yesterday. Discussed with nurse about nephrology wanting to hold dialysis d/t improving creatine. Vitals Vitals Vital Signs Date Time Temp Pulse Resp B/P (MAP) Pulse Ox O2 Delivery O2 Flow Rate FiO2 01/13/17 08:41 99 Nasal Cannula 4.0 01/13/17 03:02 97.7 74 18 137/64 (88) 97.7 Physical Exam General: Alert, Oriented X3, Cooperative Heart: Regular rate Lungs: Other (decrease bs, wheezing bilaterally, on nasal cannula 4 L) Abdomen: Soft, Other (tender L flank) Extremities: Other (2+ edema bilateral LE) Skin: Other (4 cm fluid filled blisters on b/l LE) Labs LABS Laboratory Tests Test 01/12/17 10:10 01/12/17 14:20 01/13/17 05:00 01/13/17 06:20 Ammonia 25 mcmol/L (11-34) Urine Collection Type Unknown Urine Color Yellow Urine Clarity Clear Urine pH 5.0 Urine Specific [place] 1.010 Urine Protein Negative mg/dL (NEG-TRACE) Urine Glucose (UA) Negative mg/dL (NEG) Urine Ketones (Stick) Negative mg/dL (NEG) Urine Blood Large (NEG) Urine Nitrite Negative (NEG) Urine Bilirubin Negative (NEG) Urine Urobilinogen Dipstick 0.2 mg/dL (0.2 mg/dL) Urine Leukocyte Esterase Moderate (NEG) Urine RBC 20-40 /HPF (0-2) Urine WBC 11-20 /HPF (0-4) Urine Bacteria Many /HPF (0-FEW) Urine Mucus Slight /LPF Urine Yeast Present /HPF Sodium Level 143 mmol/L (136-145) Potassium Level 4.2 mmol/L (3.5-5.1) Chloride Level 106 mmol/L (98-107) Carbon Dioxide Level 29 mmol/L (21-32) Anion Gap 8 (6-14) Blood Urea Nitrogen 29 mg/dL (7-20) Creatinine 1.0 mg/dL (0.6-1.0) Estimated GFR (Cockcroft-Gault) 55.3 BUN/Creatinine Ratio 29 (6-20) Glucose Level 85 mg/dL (70-99) Calcium Level 7.9 mg/dL (8.5-10.1) Total Bilirubin 1.3 mg/dL (0.2-1.0) Aspartate Amino Transf (AST/SGOT) 37 U/L (15-37) Alanine Aminotransferase (ALT/SGPT) 20 U/L (14-59) Alkaline Phosphatase 152 U/L (46-116) Total Protein 5.6 g/dL (6.4-8.2) Albumin 2.8 g/dL (3.4-5.0) Albumin/Globulin Ratio 1.0 (1.0-1.7) White Blood Count 7.1 x10^3/uL (4.0-11.0) Red Blood Count 2.22 x10^6/uL (3.50-5.40) Hemoglobin 7.3 g/dL (12.0-15.5) Hematocrit 21.5 % (36.0-47.0) Mean Corpuscular Volume 97 fL (79-100) Mean Corpuscular Hemoglobin 33 pg (25-35) Mean Corpuscular Hemoglobin Concent 34 g/dL (31-37) Red Cell Distribution Width 23.1 % (11.5-14.5) Platelet Count 301 x10^3/uL (140-400) Neutrophils (%) (Auto) 57 % (31-73) Lymphocytes (%) (Auto) 5 % (24-48) Monocytes (%) (Auto) 38 % (0-9) Eosinophils (%) (Auto) 1 % (0-3) Basophils (%) (Auto) 1 % (0-3) Neutrophils # (Auto) 4.0 x10^3uL (1.8-7.7) Lymphocytes # (Auto) 0.3 x10^3/uL (1.0-4.8) Monocytes # (Auto) 2.7 x10^3/uL (0.0-1.1) Eosinophils # (Auto) 0.0 x10^3/uL (0.0-0.7) Basophils # (Auto) 0.0 x10^3/uL (0.0-0.2) Prothrombin Time 14.0 SEC (11.7-14.0) Prothromb Time International Ratio 1.2 (0.8-1.1) Review of Systems Review of Systems no n.vd EEG today consider DC when cleared by Neuro Assessment and Plan Assessmemt and Plan Problems Medical Problems: (1) Cellulitis Status: Acute Problems: Comment Review of Relevant I have reviewed the following items ketty (where applicable) has been applied. Labs Laboratory Tests Test 01/12/17 05:14 01/12/17 10:10 01/12/17 14:20 01/13/17 05:00 Prothrombin Time 14.6 SEC (11.7-14.0) Prothromb Time International Ratio 1.2 (0.8-1.1) Sodium Level 139 mmol/L (136-145) 143 mmol/L (136-145) Potassium Level 4.5 mmol/L (3.5-5.1) 4.2 mmol/L (3.5-5.1) Chloride Level 104 mmol/L (98-107) 106 mmol/L (98-107) Carbon Dioxide Level 27 mmol/L (21-32) 29 mmol/L (21-32) Anion Gap 8 (6-14) 8 (6-14) Blood Urea Nitrogen 34 mg/dL (7-20) 29 mg/dL (7-20) Creatinine 1.6 mg/dL (0.6-1.0) 1.0 mg/dL (0.6-1.0) Estimated GFR (Cockcroft-Gault) 32.2 55.3 Glucose Level 93 mg/dL (70-99) 85 mg/dL (70-99) Calcium Level 7.8 mg/dL (8.5-10.1) 7.9 mg/dL (8.5-10.1) Phosphorus Level 3.9 mg/dL (2.6-4.7) Albumin 3.1 g/dL (3.4-5.0) 2.8 g/dL (3.4-5.0) Ammonia 25 mcmol/L (11-34) Urine Collection Type Unknown Urine Color Yellow Urine Clarity Clear Urine pH 5.0 Urine Specific [place] 1.010 Urine Protein Negative mg/dL (NEG-TRACE) Urine Glucose (UA) Negative mg/dL (NEG) Urine Ketones (Stick) Negative mg/dL (NEG) Urine Blood Large (NEG) Urine Nitrite Negative (NEG) Urine Bilirubin Negative (NEG) Urine Urobilinogen Dipstick 0.2 mg/dL (0.2 mg/dL) Urine Leukocyte Esterase Moderate (NEG) Urine RBC 20-40 /HPF (0-2) Urine WBC 11-20 /HPF (0-4) Urine Bacteria Many /HPF (0-FEW) Urine Mucus Slight /LPF Urine Yeast Present /HPF BUN/Creatinine Ratio 29 (6-20) Total Bilirubin 1.3 mg/dL (0.2-1.0) Aspartate Amino Transf (AST/SGOT) 37 U/L (15-37) Alanine Aminotransferase (ALT/SGPT) 20 U/L (14-59) Alkaline Phosphatase 152 U/L (46-116) Total Protein 5.6 g/dL (6.4-8.2) Albumin/Globulin Ratio 1.0 (1.0-1.7) Test 01/13/17 06:20 White Blood Count 7.1 x10^3/uL (4.0-11.0) Red Blood Count 2.22 x10^6/uL (3.50-5.40) Hemoglobin 7.3 g/dL (12.0-15.5) Hematocrit 21.5 % (36.0-47.0) Mean Corpuscular Volume 97 fL (79-100) Mean Corpuscular Hemoglobin 33 pg (25-35) Mean Corpuscular Hemoglobin Concent 34 g/dL (31-37) Red Cell Distribution Width 23.1 % (11.5-14.5) Platelet Count 301 x10^3/uL (140-400) Neutrophils (%) (Auto) 57 % (31-73) Lymphocytes (%) (Auto) 5 % (24-48) Monocytes (%) (Auto) 38 % (0-9) Eosinophils (%) (Auto) 1 % (0-3) Basophils (%) (Auto) 1 % (0-3) Neutrophils # (Auto) 4.0 x10^3uL (1.8-7.7) Lymphocytes # (Auto) 0.3 x10^3/uL (1.0-4.8) Monocytes # (Auto) 2.7 x10^3/uL (0.0-1.1) Eosinophils # (Auto) 0.0 x10^3/uL (0.0-0.7) Basophils # (Auto) 0.0 x10^3/uL (0.0-0.2) Prothrombin Time 14.0 SEC (11.7-14.0) Prothromb Time International Ratio 1.2 (0.8-1.1) Laboratory Tests Test 01/12/17 10:10 01/12/17 14:20 01/13/17 05:00 01/13/17 06:20 Ammonia 25 mcmol/L (11-34) Urine Collection Type Unknown Urine Color Yellow Urine Clarity Clear Urine pH 5.0 Urine Specific [place] 1.010 Urine Protein Negative mg/dL (NEG-TRACE) Urine Glucose (UA) Negative mg/dL (NEG) Urine Ketones (Stick) Negative mg/dL (NEG) Urine Blood Large (NEG) Urine Nitrite Negative (NEG) Urine Bilirubin Negative (NEG) Urine Urobilinogen Dipstick 0.2 mg/dL (0.2 mg/dL) Urine Leukocyte Esterase Moderate (NEG) Urine RBC 20-40 /HPF (0-2) Urine WBC 11-20 /HPF (0-4) Urine Bacteria Many /HPF (0-FEW) Urine Mucus Slight /LPF Urine Yeast Present /HPF Sodium Level 143 mmol/L (136-145) Potassium Level 4.2 mmol/L (3.5-5.1) Chloride Level 106 mmol/L (98-107) Carbon Dioxide Level 29 mmol/L (21-32) Anion Gap 8 (6-14) Blood Urea Nitrogen 29 mg/dL (7-20) Creatinine 1.0 mg/dL (0.6-1.0) Estimated GFR (Cockcroft-Gault) 55.3 BUN/Creatinine Ratio 29 (6-20) Glucose Level 85 mg/dL (70-99) Calcium Level 7.9 mg/dL (8.5-10.1) Total Bilirubin 1.3 mg/dL (0.2-1.0) Aspartate Amino Transf (AST/SGOT) 37 U/L (15-37) Alanine Aminotransferase (ALT/SGPT) 20 U/L (14-59) Alkaline Phosphatase 152 U/L (46-116) Total Protein 5.6 g/dL (6.4-8.2) Albumin 2.8 g/dL (3.4-5.0) Albumin/Globulin Ratio 1.0 (1.0-1.7) White Blood Count 7.1 x10^3/uL (4.0-11.0) Red Blood Count 2.22 x10^6/uL (3.50-5.40) Hemoglobin 7.3 g/dL (12.0-15.5) Hematocrit 21.5 % (36.0-47.0) Mean Corpuscular Volume 97 fL (79-100) Mean Corpuscular Hemoglobin 33 pg (25-35) Mean Corpuscular Hemoglobin Concent 34 g/dL (31-37) Red Cell Distribution Width 23.1 % (11.5-14.5) Platelet Count 301 x10^3/uL (140-400) Neutrophils (%) (Auto) 57 % (31-73) Lymphocytes (%) (Auto) 5 % (24-48) Monocytes (%) (Auto) 38 % (0-9) Eosinophils (%) (Auto) 1 % (0-3) Basophils (%) (Auto) 1 % (0-3) Neutrophils # (Auto) 4.0 x10^3uL (1.8-7.7) Lymphocytes # (Auto) 0.3 x10^3/uL (1.0-4.8) Monocytes # (Auto) 2.7 x10^3/uL (0.0-1.1) Eosinophils # (Auto) 0.0 x10^3/uL (0.0-0.7) Basophils # (Auto) 0.0 x10^3/uL (0.0-0.2) Prothrombin Time 14.0 SEC (11.7-14.0) Prothromb Time International Ratio 1.2 (0.8-1.1) Microbiology 12/27/16 Blood Culture - Final, Complete NO GROWTH AFTER 5 DAYS 12/31/16 Urine Culture - Final, Complete 12/31/16 Urine Culture Result 1 (MANE) - Final, Complete Medications Current Medications Acetaminophen (Tylenol) 650 mg 1X ONCE PO Last administered on 12/27/16t 09:11 ; Start 12/27/16 at 08:15; Stop 12/27/16 at 08:22; Status DC Diphenhydramine HCl (Benadryl) 25 mg 1X ONCE PO Last administered on 09:12; Start 12/27/16 at 08:15; Stop 12/27/16 at 08:22; Status DC Furosemide (Lasix) 20 mg 1X ONCE IVP ; Start 12/27/16 at 08:15; Stop 12/27/16 at 08:22; Status DC Fentanyl Citrate (Fentanyl 2ml Vial) 25 mcg PRN QID PRN IV PAIN; Start at 16:45; Stop 12/29/16 at 21:00; Status DC Lisinopril (Prinivil) 10 mg DAILY PO ; Start 12/28/16 at 09:00; Stop 12/28/16 at 09:00; Status DC Oxycodone/ Acetaminophen (Percocet 5/325) 1 tab Q4HRS PRN PO MILD/MODERATE PAIN Last administered on 01/09/17 01:27; Start 12/27/16 at 16:45 Gabapentin (Neurontin) 300 mg TID PO Last administered on 12/28/16 10:44; Start 12/27/16 at 21:00; Stop 12/28/16 at 15:23; Status DC Cetirizine HCl (Zyrtec) 10 mg PRN DAILY PRN PO ALLERGIES; Start 12/28/16 at 09: 00 Pantoprazole Sodium (Protonix) 40 mg DAILYAC PO Last administered on 01/13/17 09:11; Start 12/28/16 at 07:30 Oxycodone/ Acetaminophen (Percocet 5/325) 2 tab Q4HRS PRN PO SEVERE PAIN Last administered on 01/11/17 21:50; Start 12/27/16 at 16:45 Sodium Chloride 1,000 ml @ 75 mls/hr [id number] IV Last administered on 07:12; Start 12/27/16 at 17:30; Stop 12/28/16 at 08:15; Status DC Piperacillin Sod/ Tazobactam Sod (Zosyn Per Pharmacy) 1 each PRN DAILY PRN MC SEE COMMENTS; Start 12/27/16 at 17:30; Stop 12/28/16 at 07:27; Status DC Vancomycin HCl (Vanco Per Pharmacy) 1 each PRN DAILY PRN MC SEE COMMENTS Last administered on 12/27/16 18:45; Start 12/27/16 at 17:30; Stop 12/27/16 at 18:51 ; Status DC Vancomycin HCl 2 gm/Sodium Chloride 500 ml @ 250 mls/hr 1X ONCE IV ; Start at 17:45; Stop 12/27/16 at 18:51; Status DC Piperacillin Sod/ Tazobactam Sod 3.375 gm/Sodium Chloride 50 ml @ 100 mls/hr 1X ONCE IV Last administered on 12/27/16 18:07; Start 12/27/16 at 18:00; Stop 12/27/16 at 18:29; Status DC Piperacillin Sod/ Tazobactam Sod 2.25 gm/Sodium Chloride 50 ml @ 100 mls/hr Q6HRS IV Last administered on 12/28/16 06:08; Start 12/28/16 at 00:00; Stop at 07:31; Status DC Vancomycin HCl 1.5 gm/Sodium Chloride 500 ml @ 250 mls/hr Q48H IV ; Start 12/29 at 20:00; Stop 12/29/16 at 20:00; Status DC Micafungin Sodium 100 mg/Dextrose 100 ml @ 100 mls/hr Q24H IV Last administered on 12/31/16 09:13; Start 12/28/16 at 08:00; Stop 12/31/16 at 10:43 ; Status DC Linezolid 300 ml @ 300 mls/hr Q12HR IV Last administered on 12/31/16 09:13; Start 12/28/16 at 09:00; Stop 12/31/16 at 10:43; Status DC Piperacillin Sod/ Tazobactam Sod 2.25 gm/Sodium Chloride 50 ml @ 100 mls/hr Q8HRS IV Last administered on 01/03/17 06:04; Start 12/28/16 at 14:00; Stop at 13:01; Status DC Calcium Chloride 2000 mg/Sodium Chloride 120 ml @ 240 mls/hr 1X ONCE IV Last administered on 12/28/16 08:54; Start 12/28/16 at 08:00; Stop 12/28/16 at 08:29 ; Status DC Magnesium Sulfate/ Dextrose 50 ml @ 25 mls/hr PRN DAILY PRN IV for Mag < 1.7 on am labs Last administered on 01/04/17 09:50; Start 12/28/16 at 08:15; Stop 01/06/17 at 11:48; Status DC Sodium Bicarbonate 50 meq Q2H IV Last administered on 12/28/16 15:33; Start at 08:30; Stop 12/28/16 at 10:31; Status DC Sodium Chloride 500 ml @ 0 mls/hr PRN QID PRN IV UO< 30cc/hr over previous 6hrs ; Start 12/28/16 at 08:15; Stop 01/03/17 at 18:34; Status DC Sodium Bicarbonate 150 meq/Dextrose 1,150 ml @ 100 mls/hr [id number] IV Last administered on 12/30/16 06:08; Start 12/28/16 at 09:00; Stop 12/30/16 at 08:59 ; Status DC Heparin Sodium (Porcine) (Heparin Sodium) 10,000 unit STK-MED ONCE .ROUTE ; Start 12/28/16 at 08:46; Stop 12/28/16 at 08:47; Status DC Lidocaine/Sodium Bicarbonate (Buffered Lidocaine 1%) 20 ml STK-MED ONCE IJ ; Start 12/28/16 at 08:47; Stop 12/28/16 at 08:48; Status DC Heparin Sodium/ Sodium Chloride 500 ml @ As Directed STK-MED ONCE .ROUTE ; Start 12/28/16 at 08:47; Stop 12/28/16 at 08:48; Status DC Lidocaine/Sodium Bicarbonate (Buffered Lidocaine 1%) 3 ml 1X ONCE IJ Last administered on 12/28/16 10:10; Start 12/28/16 at 09:00; Stop 12/28/16 at 09:01 ; Status DC Heparin Sodium/ Sodium Chloride 60 unit 1X ONCE IV Last administered on 10:11; Start 12/28/16 at 09:00; Stop 12/28/16 at 09:01; Status DC Heparin Sodium (Porcine) (Heparin Sodium) 2,500 unit 1X ONCE INT CAT Last administered on 12/28/16 10:10; Start 12/28/16 at 09:00; Stop 12/28/16 at 09:01 ; Status DC Midazolam HCl (Versed) 2 mg STK-MED ONCE .ROUTE ; Start 12/28/16 at 09:41; Stop 12/28/16 at 09:42; Status DC Saliva Substitute (Biotene Moisturizing Mouth) 2 spray PRN Q15MIN PRN PO DRY MOUTH Last administered on 12/31/16 17:53; Start 12/28/16 at 13:15 Gabapentin (Neurontin) 300 mg DAILY PO Last administered on 01/03/17 09:06; Start 12/29/16 at 09:00; Stop 01/03/17 at 18:21; Status DC Acetaminophen (Tylenol) 650 mg PRN Q6HRS PRN PO MILD PAIN Last administered on 01/12/17 17:23; Start 12/28/16 at 18:15 Ondansetron HCl (Zofran) 4 mg PRN Q6HRS PRN IV NAUSEA/VOMITING Last administered on 12/29/16 11:10; Start 12/29/16 at 10:45; Stop 12/29/16 at 13:53 ; Status DC Ondansetron HCl (Zofran) 8 mg PRN Q8HRS PRN IV NAUSEA/VOMITING Last administered on 12/31/16 03:35; Start 12/29/16 at 14:00; Stop 12/31/16 at 09:03 ; Status DC Prochlorperazine Edisylate (Compazine) 10 mg 1X ONCE IV Last administered on 14:00; Start 12/29/16 at 14:00; Stop 12/29/16 at 14:01; Status DC Sodium Chloride 500 ml @ 500 mls/hr 1X ONCE IV Last administered on 23:20; Start 12/29/16 at 23:30; Stop 12/30/16 at 00:29; Status DC Sodium Chloride 500 ml @ 500 mls/hr 1X ONCE IV Last administered on 00:05; Start 12/30/16 at 00:00; Stop 12/30/16 at 00:59; Status DC Sodium Chloride 1,000 ml @ 1,000 mls/hr Q1H PRN IV hypotension; Start 12/30/16 at 08:03; Stop 12/30/16 at 14:02; Status DC Albumin Human 200 ml @ 200 mls/hr 1X PRN PRN IV Hypotension Last administered on 12/30/16 09:22; Start 12/30/16 at 08:15; Stop 12/30/16 at 14:14; Status DC Sodium Chloride (Normal Saline Flush) 10 ml 1X PRN PRN IV AP catheter pack; Start 12/30/16 at 08:15; Stop 12/31/16 at 08:14; Status DC Sodium Chloride (Normal Saline Flush) 10 ml 1X PRN PRN IV [employer] catheter pack; Start 12/30/16 at 08:15; Stop 12/31/16 at 08:14; Status DC Info (PHARMACY MONITORING -- do not chart) 1 each PRN DAILY PRN MC SEE COMMENTS ; Start 12/30/16 at 08:15; Stop 01/08/17 at 12:44; Status DC Info (PHARMACY MONITORING -- do not chart) 1 each PRN DAILY PRN MC SEE COMMENTS ; Start 12/30/16 at 08:15; Status UNV Paricalcitol (Zemplar) 5 mcg 3X/WEEK IV Last administered on 01/03/17 09:06; Start 12/31/16 at 09:00; Stop 01/04/17 at 11:03; Status DC Calcium Acetate (Phoslo) 1,334 mg TIDWMEALS PO Last administered on 01/04/17 09:46; Start 12/30/16 at 12:00; Stop 01/04/17 at 11:03; Status DC Albumin Human 500 ml @ 120 mls/hr Q4HRS IV Last administered on 12/30/16 16: 45; Start 12/30/16 at 12:00; Stop 12/30/16 at 19:59; Status DC Ondansetron HCl (Zofran) 8 mg PRN Q6HRS PRN IV NAUSEA/VOMITING, 2ND CHOICE Last administered on 01/12/17 11:55; Start 12/31/16 at 08:58 Lorazepam (Ativan) 0.5 mg PRN Q4HRS PRN IV ANXIETY / AGITATION Last administered on 01/08/17 12:50; Start 12/31/16 at 09:00 Prochlorperazine Edisylate (Compazine) 10 mg PRN Q6HRS PRN IM NAUSEA/VOMITING Last administered on 12/31/16 09:15; Start 12/31/16 at 09:00; Stop 01/01/17 at 11:48; Status DC Metoclopramide HCl (Reglan) 5 mg PRN Q6HRS PRN IV NAUSEA/VOMITING, 1ST CHOICE Last administered on 01/01/17 09:42; Start 12/31/16 at 11:45 Magnesium Sulfate/ Dextrose 50 ml @ 25 mls/hr 1X ONCE IV Last administered on 12/31/16 17:54; Start 12/31/16 at 15:00; Stop 12/31/16 at 16:59; Status DC Albumin Human 500 ml @ 75 mls/hr Q6H40M IV Last administered on 01/01/17 03: 44; Start 12/31/16 at 15:15; Stop 01/01/17 at 11:14; Status DC Prochlorperazine Edisylate (Compazine) 10 mg PRN Q6HRS PRN IV NAUSEA/VOMITING, 3RD CHOICE Last administered on 01/01/17 17:38; Start 01/01/17 at 11:45 Potassium Chloride (Klor-Con) 40 meq 1X ONCE PO Last administered on 13:02; Start 01/01/17 at 12:00; Stop 01/01/17 at 12:01; Status DC Furosemide (Lasix) 40 mg 1X ONCE IVP Last administered on 01/01/17 14:24; Start 01/01/17 at 14:00; Stop 01/01/17 at 14:01; Status DC Albuterol/ Ipratropium (Duoneb) 3 ml PRN Q6HRS PRN NEB SHORTNESS OF BREATH Last administered on 01/05/17 11:26; Start 01/01/17 at 13:45; Stop 01/05/17 at 22:40; Status DC Furosemide (Lasix) 40 mg 1X ONCE IVP Last administered on 01/02/17 11:43; Start 01/02/17 at 10:45; Stop 01/02/17 at 10:46; Status DC Potassium Chloride (Klor-Con) 40 meq 1X ONCE PO Last administered on 13:21; Start 01/02/17 at 13:15; Stop 01/02/17 at 13:16; Status DC Heparin Sodium/ Dextrose 500 ml @ 0 mls/hr CONT PRN IV SEE I/O RECORD Last administered on 01/08/17 13:35; Start 01/02/17 at 14:45; Stop 01/08/17 at 15:48 ; Status DC Heparin Sodium (Porcine) (Heparin Sodium) 3,150 unit PRN Q6HRS PRN IV FOR UFH LEVEL LESS THAN 0.2; Start 01/02/17 at 14:45; Stop 01/08/17 at 15:48; Status DC Heparin Sodium (Porcine) (Heparin Sodium) 1,550 unit PRN Q6HRS PRN IV FOR UFH LEVEL 0.2 - 0.29; Start 01/02/17 at 14:45; Stop 01/08/17 at 15:48; Status DC Warfarin Sodium (Coumadin Per Pharmacy) 1 each PRN DAILY PRN MC PER PROTOCOL Last administered on 01/03/17 11:34; Start 01/02/17 at 14:45; Stop 01/03/17 at 23:01; Status DC Warfarin Sodium (Coumadin) 5 mg 1X WARF ONCE PO Last administered on 17:41; Start 01/02/17 at 16:00; Stop 01/02/17 at 16:01; Status DC Warfarin Sodium (Coumadin - No Dose Today) 1 each 1X WARF ONCE MC ; Start 01/03 at 16:00; Stop 01/03/17 at 23:01; Status DC Cefpodoxime Proxetil (Vantin) 200 mg BID PO Last administered on 01/05/17 08: 53; Start 01/03/17 at 21:00; Stop 01/05/17 at 09:37; Status DC Cyanocobalamin (Vitamin B-12) 1,000 mcg QMONTH IM Last administered on 09:49; Start 01/04/17 at 09:00 Gabapentin (Neurontin) 900 mg TID PO Last administered on 01/12/17 08:03; Start 01/03/17 at 21:00; Stop 01/12/17 at 15:41; Status DC Sodium Chloride 1,000 ml @ 75 mls/hr [id number] IV Last administered on 09:46; Start 01/03/17 at 18:45; Stop 01/04/17 at 11:04; Status DC Potassium Chloride (Klor-Con) 20 meq 1X ONCE PO Last administered on 18:56; Start 01/03/17 at 18:45; Stop 01/03/17 at 18:46; Status DC Magnesium Sulfate/ Dextrose 50 ml @ 25 mls/hr PRN DAILY PRN IV for Mag < 1.7 on am labs; Start 01/04/17 at 10:45; Status UNV Potassium Chloride 50 ml @ 50 mls/hr PRN Q6HRS PRN IV For K < 3.7 Last administered on 01/05/17 13:10; Start 01/04/17 at 10:45 Potassium Chloride 50 ml @ 50 mls/hr PRN Q2HR PRN IV total of 40mEq for K < 3.5 Last administered on 01/04/17 13:46; Start 01/04/17 at 10:45 Albumin Human 100 ml @ 100 mls/hr TID IV Last administered on 01/06/17 08:53 ; Start 01/04/17 at 14:00; Stop 01/06/17 at 09:59; Status DC Warfarin Sodium (Coumadin) 4 mg DAILY16 PO Last administered on 01/08/17 17:15 ; Start 01/04/17 at 17:00; Stop 01/09/17 at 08:15; Status DC Warfarin Sodium (Coumadin Per Physician) 1 each PRN DAILY PRN MC SEE COMMENTS Last administered on 01/10/17 15:26; Start 01/04/17 at 17:00; Stop 01/11/17 at 06 :14; Status DC Magnesium Sulfate/ Dextrose 100 ml @ 100 mls/hr 1X ONCE IV Last administered on 01/05/17 11:35; Start 01/05/17 at 11:00; Stop 01/05/17 at 11:59; Status DC Magnesium Sulfate/ Dextrose 50 ml @ 25 mls/hr PRN DAILY PRN IV for Mag < 1.7 on am labs Last administered on 01/08/17 09:27; Start 01/05/17 at 11:00 Potassium Chloride 50 ml @ 25 mls/hr Q2HR IV Last administered on 01/05/17 23: 42; Start 01/05/17 at 16:00; Stop 01/05/17 at 19:59; Status DC Iohexol (Omnipaque 300 Mg/ml) 60 ml 1X ONCE IV ; Start 01/05/17 at 16:15; Stop 01/05/17 at 16:16; Status DC Iohexol (Omnipaque 240 Mg/ml) 30 ml 1X ONCE PO Last administered on 01/05/17 15:45; Start 01/05/17 at 16:15; Stop 01/05/17 at 16:16; Status DC Info (Do NOT chart on this entry -- for MONITORING) 1 each PRN DAILY PRN MC SEE COMMENTS; Start 01/05/17 at 16:15; Stop 01/07/17 at 16:14; Status DC Albuterol/ Ipratropium (Duoneb) 3 ml RTQID NEB Last administered on 01/13/17 08 :40; Start 01/05/17 at 20:00 Budesonide (Pulmicort) 0.5 mg RTBID NEB Last administered on 01/13/17 08:40; Start 01/05/17 at 20:00 Furosemide (Lasix) 20 mg 1X ONCE IVP Last administered on 01/05/17 22:04; Start 01/05/17 at 22:00; Stop 01/05/17 at 22:01; Status DC Albuterol Sulfate (Ventolin Neb Soln) 2.5 mg PRN Q6HRS PRN NEB SHORTNESS OF BREATH Last administered on 01/08/17 03:37; Start 01/05/17 at 22:40 Furosemide (Lasix) 40 mg 1X ONCE IVP Last administered on 01/07/17 11:50; Start 01/07/17 at 11:30; Stop 01/07/17 at 11:31; Status DC Furosemide (Lasix) 40 mg DAILY IVP Last administered on 01/13/17 09:11; Start 01/08/17 at 09:00 Albumin Human 100 ml @ 100 mls/hr DAILY IV Last administered on 01/10/17 08:22 ; Start 01/08/17 at 17:00; Stop 01/10/17 at 16:59; Status DC Tramadol HCl (Ultram) 50 mg PRN Q6HRS PRN PO MODERATE PAIN Last administered on 01/08/17 22:28; Start 01/08/17 at 22:15 Phytonadione (Vitamin K) 10 mg 1X ONCE SQ Last administered on 01/10/17 09:42 ; Start 01/10/17 at 09:15; Stop 01/10/17 at 09:16; Status DC Heparin Sodium (Porcine) (Heparin Sodium) 10,000 unit STK-MED ONCE .ROUTE ; Start 01/10/17 at 10:39; Stop 01/10/17 at 10:40; Status DC Lidocaine/Sodium Bicarbonate (Buffered Lidocaine 1%) 20 ml STK-MED ONCE IJ ; Start 01/10/17 at 10:39; Stop 01/10/17 at 10:40; Status DC Heparin Sodium/ Sodium Chloride 500 ml @ As Directed STK-MED ONCE .ROUTE ; Start 01/10/17 at 10:39; Stop 01/10/17 at 10:40; Status DC Lidocaine/Sodium Bicarbonate (Buffered Lidocaine 1%) 3 ml 1X ONCE IJ Last administered on 01/10/17 13:27; Start 01/10/17 at 12:30; Stop 01/10/17 at 12:31; Status DC Heparin Sodium/ Sodium Chloride 60 unit 1X ONCE IV Last administered on 13:28; Start 01/10/17 at 12:30; Stop 01/10/17 at 12:31; Status DC Heparin Sodium (Porcine) (Heparin Sodium) 2,800 unit 1X ONCE INT CAT Last administered on 01/10/17 13:28; Start 01/10/17 at 12:30; Stop 01/10/17 at 12:31; Status DC Phytonadione 10 mg/Sodium Chloride 51 ml @ 102 mls/hr 1X ONCE IV Last administered on 01/11/17 14:22; Start 01/11/17 at 11:30; Stop 01/11/17 at 11:59; Status DC Active Scripts Active Reported Gabapentin 300 Mg Capsule 900 Mg PO TID Claritin (Loratadine) 10 Mg Tablet 1 Tab PO DAILY PRN Bactrim 400-80 Mg Tablet (Sulfamethoxazole/Trimethoprim) 1 Each Tablet 1 Tab PO BID Gabapentin 300 Mg Capsule 300 Mg PO TID Zestril (Lisinopril) 10 Mg Tablet 10 Mg PO DAILY Cyanocobalamin Injection (Cyanocobalamin (Vitamin B-12)) 1,000 Mcg/1 Ml Vial 1, 000 Mcg QMONTH Percocet 5-325 Mg Tablet (Oxycodone/Acetaminophen) 1 Each Tablet 1-2 Tab PO Q4- 6HRS Prilosec Otc (Omeprazole Magnesium) 20 Mg Tablet.dr 20 Mg PO DAILY Vitals/I & O Vital Sign - Last 24 Hours 01/12/17 01/12/17 01/12/17 01/12/17 10:00 11:00 12:00 15:14 Temp 97.8 97.8 Pulse 81 80 83 77 Resp 16 16 18 18 B/P (MAP) 138/62 (87) 142/71 (94) 149/69 (95) 136/63 (87) Pulse Ox 99 97 98 98 O2 Delivery Nasal Cannula Nasal Cannula Nasal Cannula Nasal Cannula O2 Flow Rate 4.0 4.0 4.0 4.0 01/12/17 01/12/17 01/12/17 01/12/17 15:51 17:00 18:11 20:00 Temp 98.0 97.8 98.0 97.8 Pulse 80 76 99 Resp 18 18 20 B/P (MAP) 140/62 (88) 137/57 (83) 144/63 (90) Pulse Ox 97 99 O2 Delivery Nasal Cannula Nasal Cannula Nasal Cannula Nasal Cannula O2 Flow Rate 4.0 4.0 4.0 4.0 01/12/17 01/12/17 01/12/17 01/13/17 20:00 20:01 23:00 00:15 Temp 97.9 97.9 Pulse 77 Resp 18 B/P (MAP) 132/70 (90) Pulse Ox 98 99 O2 Delivery Nasal Cannula Nasal Cannula Nasal Cannula Nasal Cannula O2 Flow Rate 4.0 4.0 4.0 4.0 01/13/17 01/13/17 03:02 08:41 Temp 97.7 97.7 Pulse 74 Resp 18 B/P (MAP) 137/64 (88) Pulse Ox 95 99 O2 Delivery Nasal Cannula Nasal Cannula O2 Flow Rate 4.0 4.0 Intake and Output 01/12/17 01/12/17 01/13/17 15:00 23:00 07:00 Intake Total 240 ml 360 ml 50 ml Output Total 2000 ml 900 ml Balance 240 ml -1640 ml -850 ml SERGEY KNOWLES MD January 13, 2017 09:55
[2017-01-13 11:00] VITALS: BP 150/57
--- NOTE | 2017-01-13 12:02 | PDOC ---
PULMONARY PROGRESS NOTES Subjective no soa Vitals Vital Signs Date Time Temp Pulse Resp B/P (MAP) Pulse Ox O2 Delivery O2 Flow Rate FiO2 01/13/17 11:31 99 Nasal Cannula 2.0 01/13/17 07:00 98.3 81 17 141/62 (88) 98.3 General: Alert, No acute distress HEENT: Other Lungs: Other (decrease bs, wheezing bilaterally, on nasal cannula 4 L) Cardiovascular: S1, S2 Abdomen: Soft, Non-tender, Other (he) Neuro Exam: Alert Extremities: Other (2 EDEMA, blisters) Skin: Warm Labs Laboratory Tests Test 01/12/17 05:14 01/12/17 10:10 01/12/17 14:20 01/13/17 05:00 Prothrombin Time 14.6 SEC (11.7-14.0) Prothromb Time International Ratio 1.2 (0.8-1.1) Sodium Level 139 mmol/L (136-145) 143 mmol/L (136-145) Potassium Level 4.5 mmol/L (3.5-5.1) 4.2 mmol/L (3.5-5.1) Chloride Level 104 mmol/L (98-107) 106 mmol/L (98-107) Carbon Dioxide Level 27 mmol/L (21-32) 29 mmol/L (21-32) Anion Gap 8 (6-14) 8 (6-14) Blood Urea Nitrogen 34 mg/dL (7-20) 29 mg/dL (7-20) Creatinine 1.6 mg/dL (0.6-1.0) 1.0 mg/dL (0.6-1.0) Estimated GFR (Cockcroft-Gault) 32.2 55.3 Glucose Level 93 mg/dL (70-99) 85 mg/dL (70-99) Calcium Level 7.8 mg/dL (8.5-10.1) 7.9 mg/dL (8.5-10.1) Phosphorus Level 3.9 mg/dL (2.6-4.7) Albumin 3.1 g/dL (3.4-5.0) 2.8 g/dL (3.4-5.0) Ammonia 25 mcmol/L (11-34) Urine Collection Type Unknown Urine Color Yellow Urine Clarity Clear Urine pH 5.0 Urine Specific [place] 1.010 Urine Protein Negative mg/dL (NEG-TRACE) Urine Glucose (UA) Negative mg/dL (NEG) Urine Ketones (Stick) Negative mg/dL (NEG) Urine Blood Large (NEG) Urine Nitrite Negative (NEG) Urine Bilirubin Negative (NEG) Urine Urobilinogen Dipstick 0.2 mg/dL (0.2 mg/dL) Urine Leukocyte Esterase Moderate (NEG) Urine RBC 20-40 /HPF (0-2) Urine WBC 11-20 /HPF (0-4) Urine Bacteria Many /HPF (0-FEW) Urine Mucus Slight /LPF Urine Yeast Present /HPF BUN/Creatinine Ratio 29 (6-20) Total Bilirubin 1.3 mg/dL (0.2-1.0) Aspartate Amino Transf (AST/SGOT) 37 U/L (15-37) Alanine Aminotransferase (ALT/SGPT) 20 U/L (14-59) Alkaline Phosphatase 152 U/L (46-116) Total Protein 5.6 g/dL (6.4-8.2) Albumin/Globulin Ratio 1.0 (1.0-1.7) Test 01/13/17 06:20 White Blood Count 7.1 x10^3/uL (4.0-11.0) Red Blood Count 2.22 x10^6/uL (3.50-5.40) Hemoglobin 7.3 g/dL (12.0-15.5) Hematocrit 21.5 % (36.0-47.0) Mean Corpuscular Volume 97 fL (79-100) Mean Corpuscular Hemoglobin 33 pg (25-35) Mean Corpuscular Hemoglobin Concent 34 g/dL (31-37) Red Cell Distribution Width 23.1 % (11.5-14.5) Platelet Count 301 x10^3/uL (140-400) Neutrophils (%) (Auto) 57 % (31-73) Lymphocytes (%) (Auto) 5 % (24-48) Monocytes (%) (Auto) 38 % (0-9) Eosinophils (%) (Auto) 1 % (0-3) Basophils (%) (Auto) 1 % (0-3) Neutrophils # (Auto) 4.0 x10^3uL (1.8-7.7) Lymphocytes # (Auto) 0.3 x10^3/uL (1.0-4.8) Monocytes # (Auto) 2.7 x10^3/uL (0.0-1.1) Eosinophils # (Auto) 0.0 x10^3/uL (0.0-0.7) Basophils # (Auto) 0.0 x10^3/uL (0.0-0.2) Prothrombin Time 14.0 SEC (11.7-14.0) Prothromb Time International Ratio 1.2 (0.8-1.1) Laboratory Tests Test 01/12/17 14:20 01/13/17 05:00 01/13/17 06:20 Urine Collection Type Unknown Urine Color Yellow Urine Clarity Clear Urine pH 5.0 Urine Specific [place] 1.010 Urine Protein Negative mg/dL (NEG-TRACE) Urine Glucose (UA) Negative mg/dL (NEG) Urine Ketones (Stick) Negative mg/dL (NEG) Urine Blood Large (NEG) Urine Nitrite Negative (NEG) Urine Bilirubin Negative (NEG) Urine Urobilinogen Dipstick 0.2 mg/dL (0.2 mg/dL) Urine Leukocyte Esterase Moderate (NEG) Urine RBC 20-40 /HPF (0-2) Urine WBC 11-20 /HPF (0-4) Urine Bacteria Many /HPF (0-FEW) Urine Mucus Slight /LPF Urine Yeast Present /HPF Sodium Level 143 mmol/L (136-145) Potassium Level 4.2 mmol/L (3.5-5.1) Chloride Level 106 mmol/L (98-107) Carbon Dioxide Level 29 mmol/L (21-32) Anion Gap 8 (6-14) Blood Urea Nitrogen 29 mg/dL (7-20) Creatinine 1.0 mg/dL (0.6-1.0) Estimated GFR (Cockcroft-Gault) 55.3 BUN/Creatinine Ratio 29 (6-20) Glucose Level 85 mg/dL (70-99) Calcium Level 7.9 mg/dL (8.5-10.1) Total Bilirubin 1.3 mg/dL (0.2-1.0) Aspartate Amino Transf (AST/SGOT) 37 U/L (15-37) Alanine Aminotransferase (ALT/SGPT) 20 U/L (14-59) Alkaline Phosphatase 152 U/L (46-116) Total Protein 5.6 g/dL (6.4-8.2) Albumin 2.8 g/dL (3.4-5.0) Albumin/Globulin Ratio 1.0 (1.0-1.7) White Blood Count 7.1 x10^3/uL (4.0-11.0) Red Blood Count 2.22 x10^6/uL (3.50-5.40) Hemoglobin 7.3 g/dL (12.0-15.5) Hematocrit 21.5 % (36.0-47.0) Mean Corpuscular Volume 97 fL (79-100) Mean Corpuscular Hemoglobin 33 pg (25-35) Mean Corpuscular Hemoglobin Concent 34 g/dL (31-37) Red Cell Distribution Width 23.1 % (11.5-14.5) Platelet Count 301 x10^3/uL (140-400) Neutrophils (%) (Auto) 57 % (31-73) Lymphocytes (%) (Auto) 5 % (24-48) Monocytes (%) (Auto) 38 % (0-9) Eosinophils (%) (Auto) 1 % (0-3) Basophils (%) (Auto) 1 % (0-3) Neutrophils # (Auto) 4.0 x10^3uL (1.8-7.7) Lymphocytes # (Auto) 0.3 x10^3/uL (1.0-4.8) Monocytes # (Auto) 2.7 x10^3/uL (0.0-1.1) Eosinophils # (Auto) 0.0 x10^3/uL (0.0-0.7) Basophils # (Auto) 0.0 x10^3/uL (0.0-0.2) Prothrombin Time 14.0 SEC (11.7-14.0) Prothromb Time International Ratio 1.2 (0.8-1.1) Medications Active Scripts Medications Dose Route/Sig Days Date Category Gabapentin 300 Mg Capsule 900 Mg PO TID 01/03/17 Reported Claritin (Loratadine) 10 Mg Tablet 1 Tab PO DAILY PRN 11/22/16 Reported Bactrim 400-80 Mg Tablet (Sulfamethoxazole/Trimethoprim) 1 Each Tablet 1 Tab PO BID 11/22/16 Reported Gabapentin 300 Mg Capsule 300 Mg PO TID 11/22/16 Reported Zestril (Lisinopril) 10 Mg Tablet 10 Mg PO DAILY 11/22/16 Reported Cyanocobalamin Injection (Cyanocobalamin (Vitamin B-12)) 1,000 Mcg/1 Ml Vial 1,000 Mcg QMONTH 05/28/16 Reported Percocet 5-325 Mg Tablet (Oxycodone/Acetaminophen) 1 Each Tablet 1-2 Tab PO Q4-6HRS 05/28/16 Reported Prilosec Otc (Omeprazole Magnesium) 20 Mg Tablet.dr 20 Mg PO DAILY 05/28/16 Reported Impression . 1. Acute respiratory failure/distress, multifactorial, secondary to acute pulmonary edema. diastolic HF 2. Metastatic cholangiocarcinoma, status post recent chemotherapy, last received on 12/24/2016. 3. Acute renal failure, requiring hemodialysis, currently off of dialysis. 4. Acute blood loss anemia, status post transfusion. off AC 5. Right upper extremity deep venous thrombosis, diagnosed on 01/02/2017. off anticoagulation due to large retro-peritoneal bleed 6. Peripheral neuropathy. 7. Abnormal x-ray compatible with pulmonary edema. 8. Multiple other comorbidities. 9. Acute blood loss anemia Plan . 1. We will continue Lasix ,monitor renal function closely, improving 2. echocardiogram reviewed, normal EF 3. improve nutritional status 4. P.r.n. nebulized treatments. 5. Continue other support 6. CXR 5/4 improving CHF 7. p.r.n. BiPAP. d/w ok to transfer to [facility] MIRIAN PENN MD January 13, 2017 12:02
--- NOTE | 2017-01-13 12:21 | PDOC ---
PROGRESS NOTES Subjective Subjective c/c - f/u of Cholangiocarcinoma ROS - no CP Objective Objective Vital Signs Date Time Temp Pulse Resp B/P (MAP) Pulse Ox O2 Delivery O2 Flow Rate FiO2 01/13/17 11:31 99 Nasal Cannula 2.0 01/13/17 07:00 98.3 81 17 141/62 (88) 98.3 Intake and Output 01/13/17 07:00 Intake Total 650 ml Output Total 2900 ml Balance -2250 ml Intake Oral 650 ml Output Urine Total 2900 ml Physical Exam Heart: Normal S1, Normal S2 General: Alert, Oriented X3 Lungs: Clear to auscultation Neuro: Normal speech Assessment Assessment Problems Medical Problems: (1) Cellulitis Status: Acute A/P: 1. 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 Last treatment on 12/24/2016. CT 01/05/17 revealed stable disease with stable periportal LN 2.4 cm. Toxicity prompting admit likely gemzar- related (LE swelling, erythema, renal failure). Further tx on hold until over acute events. 2. Acute renal failure on HD. Dr. Kerr following. 3. Hypoalbuminemia due to malnutrition from malignancy. Contributes to LE swelling. 4. Twitching/ flapping hands. Appreciate neurology consult. Maybe related to gabapentin. 5. RUE DVT 01/02/17 complicated by 25 cm left retroperitoneal hematoma. Anticoagulation on hold. DVT is asymptomatic. Vit K given 01/10 and 01/11 with INR normalization. 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 Comment Review of Relevant I have reviewed the following items ketty (where applicable) has been applied. Labs Laboratory Tests Test 01/12/17 05:14 01/12/17 10:10 01/12/17 14:20 01/13/17 05:00 Prothrombin Time 14.6 SEC (11.7-14.0) Prothromb Time International Ratio 1.2 (0.8-1.1) Sodium Level 139 mmol/L (136-145) 143 mmol/L (136-145) Potassium Level 4.5 mmol/L (3.5-5.1) 4.2 mmol/L (3.5-5.1) Chloride Level 104 mmol/L (98-107) 106 mmol/L (98-107) Carbon Dioxide Level 27 mmol/L (21-32) 29 mmol/L (21-32) Anion Gap 8 (6-14) 8 (6-14) Blood Urea Nitrogen 34 mg/dL (7-20) 29 mg/dL (7-20) Creatinine 1.6 mg/dL (0.6-1.0) 1.0 mg/dL (0.6-1.0) Estimated GFR (Cockcroft-Gault) 32.2 55.3 Glucose Level 93 mg/dL (70-99) 85 mg/dL (70-99) Calcium Level 7.8 mg/dL (8.5-10.1) 7.9 mg/dL (8.5-10.1) Phosphorus Level 3.9 mg/dL (2.6-4.7) Albumin 3.1 g/dL (3.4-5.0) 2.8 g/dL (3.4-5.0) Ammonia 25 mcmol/L (11-34) Urine Collection Type Unknown Urine Color Yellow Urine Clarity Clear Urine pH 5.0 Urine Specific Ehrenberg 1.010 Urine Protein Negative mg/dL (NEG-TRACE) Urine Glucose (UA) Negative mg/dL (NEG) Urine Ketones (Stick) Negative mg/dL (NEG) Urine Blood Large (NEG) Urine Nitrite Negative (NEG) Urine Bilirubin Negative (NEG) Urine Urobilinogen Dipstick 0.2 mg/dL (0.2 mg/dL) Urine Leukocyte Esterase Moderate (NEG) Urine RBC 20-40 /HPF (0-2) Urine WBC 11-20 /HPF (0-4) Urine Bacteria Many /HPF (0-FEW) Urine Mucus Slight /LPF Urine Yeast Present /HPF BUN/Creatinine Ratio 29 (6-20) Total Bilirubin 1.3 mg/dL (0.2-1.0) Aspartate Amino Transf (AST/SGOT) 37 U/L (15-37) Alanine Aminotransferase (ALT/SGPT) 20 U/L (14-59) Alkaline Phosphatase 152 U/L (46-116) Total Protein 5.6 g/dL (6.4-8.2) Albumin/Globulin Ratio 1.0 (1.0-1.7) Test 01/13/17 06:20 White Blood Count 7.1 x10^3/uL (4.0-11.0) Red Blood Count 2.22 x10^6/uL (3.50-5.40) Hemoglobin 7.3 g/dL (12.0-15.5) Hematocrit 21.5 % (36.0-47.0) Mean Corpuscular Volume 97 fL (79-100) Mean Corpuscular Hemoglobin 33 pg (25-35) Mean Corpuscular Hemoglobin Concent 34 g/dL (31-37) Red Cell Distribution Width 23.1 % (11.5-14.5) Platelet Count 301 x10^3/uL (140-400) Neutrophils (%) (Auto) 57 % (31-73) Lymphocytes (%) (Auto) 5 % (24-48) Monocytes (%) (Auto) 38 % (0-9) Eosinophils (%) (Auto) 1 % (0-3) Basophils (%) (Auto) 1 % (0-3) Neutrophils # (Auto) 4.0 x10^3uL (1.8-7.7) Lymphocytes # (Auto) 0.3 x10^3/uL (1.0-4.8) Monocytes # (Auto) 2.7 x10^3/uL (0.0-1.1) Eosinophils # (Auto) 0.0 x10^3/uL (0.0-0.7) Basophils # (Auto) 0.0 x10^3/uL (0.0-0.2) Prothrombin Time 14.0 SEC (11.7-14.0) Prothromb Time International Ratio 1.2 (0.8-1.1) Laboratory Tests Test 01/12/17 14:20 01/13/17 05:00 01/13/17 06:20 Urine Collection Type Unknown Urine Color Yellow Urine Clarity Clear Urine pH 5.0 Urine Specific Ehrenberg 1.010 Urine Protein Negative mg/dL (NEG-TRACE) Urine Glucose (UA) Negative mg/dL (NEG) Urine Ketones (Stick) Negative mg/dL (NEG) Urine Blood Large (NEG) Urine Nitrite Negative (NEG) Urine Bilirubin Negative (NEG) Urine Urobilinogen Dipstick 0.2 mg/dL (0.2 mg/dL) Urine Leukocyte Esterase Moderate (NEG) Urine RBC 20-40 /HPF (0-2) Urine WBC 11-20 /HPF (0-4) Urine Bacteria Many /HPF (0-FEW) Urine Mucus Slight /LPF Urine Yeast Present /HPF Sodium Level 143 mmol/L (136-145) Potassium Level 4.2 mmol/L (3.5-5.1) Chloride Level 106 mmol/L (98-107) Carbon Dioxide Level 29 mmol/L (21-32) Anion Gap 8 (6-14) Blood Urea Nitrogen 29 mg/dL (7-20) Creatinine 1.0 mg/dL (0.6-1.0) Estimated GFR (Cockcroft-Gault) 55.3 BUN/Creatinine Ratio 29 (6-20) Glucose Level 85 mg/dL (70-99) Calcium Level 7.9 mg/dL (8.5-10.1) Total Bilirubin 1.3 mg/dL (0.2-1.0) Aspartate Amino Transf (AST/SGOT) 37 U/L (15-37) Alanine Aminotransferase (ALT/SGPT) 20 U/L (14-59) Alkaline Phosphatase 152 U/L (46-116) Total Protein 5.6 g/dL (6.4-8.2) Albumin 2.8 g/dL (3.4-5.0) Albumin/Globulin Ratio 1.0 (1.0-1.7) White Blood Count 7.1 x10^3/uL (4.0-11.0) Red Blood Count 2.22 x10^6/uL (3.50-5.40) Hemoglobin 7.3 g/dL (12.0-15.5) Hematocrit 21.5 % (36.0-47.0) Mean Corpuscular Volume 97 fL (79-100) Mean Corpuscular Hemoglobin 33 pg (25-35) Mean Corpuscular Hemoglobin Concent 34 g/dL (31-37) Red Cell Distribution Width 23.1 % (11.5-14.5) Platelet Count 301 x10^3/uL (140-400) Neutrophils (%) (Auto) 57 % (31-73) Lymphocytes (%) (Auto) 5 % (24-48) Monocytes (%) (Auto) 38 % (0-9) Eosinophils (%) (Auto) 1 % (0-3) Basophils (%) (Auto) 1 % (0-3) Neutrophils # (Auto) 4.0 x10^3uL (1.8-7.7) Lymphocytes # (Auto) 0.3 x10^3/uL (1.0-4.8) Monocytes # (Auto) 2.7 x10^3/uL (0.0-1.1) Eosinophils # (Auto) 0.0 x10^3/uL (0.0-0.7) Basophils # (Auto) 0.0 x10^3/uL (0.0-0.2) Prothrombin Time 14.0 SEC (11.7-14.0) Prothromb Time International Ratio 1.2 (0.8-1.1) Microbiology 12/27/16 Blood Culture - Final, Complete NO GROWTH AFTER 5 DAYS 12/31/16 Urine Culture - Final, Complete 12/31/16 Urine Culture Result 1 (MANE) - Final, Complete Medications Current Medications Acetaminophen (Tylenol) 650 mg 1X ONCE PO Last administered on 12/27/16 09:11 ; Start 12/27/16 at 08:15; Stop 12/27/16 at 08:22; Status DC Diphenhydramine HCl (Benadryl) 25 mg 1X ONCE PO Last administered on 09:12; Start 12/27/16 at 08:15; Stop 12/27/16 at 08:22; Status DC Furosemide (Lasix) 20 mg 1X ONCE IVP ; Start 12/27/16 at 08:15; Stop 12/27/16 at 08:22; Status DC Fentanyl Citrate (Fentanyl 2ml Vial) 25 mcg PRN QID PRN IV PAIN; Start at 16:45; Stop 12/29/16 at 21:00; Status DC Lisinopril (Prinivil) 10 mg DAILY PO ; Start 12/28/16 at 09:00; Stop 12/28/16 at 09:00; Status DC Oxycodone/ Acetaminophen (Percocet 5/325) 1 tab Q4HRS PRN PO MILD/MODERATE PAIN Last administered on 01/09/17 01:27; Start 12/27/16 at 16:45 Gabapentin (Neurontin) 300 mg TID PO Last administered on 12/28/16 10:44; Start 12/27/16 at 21:00; Stop 12/28/16 at 15:23; Status DC Cetirizine HCl (Zyrtec) 10 mg PRN DAILY PRN PO ALLERGIES; Start 12/28/16 at 09: 00 Pantoprazole Sodium (Protonix) 40 mg DAILYAC PO Last administered on 01/13/17 09:11; Start 12/28/16 at 07:30 Oxycodone/ Acetaminophen (Percocet 5/325) 2 tab Q4HRS PRN PO SEVERE PAIN Last administered on 01/11/17 21:50; Start 12/27/16 at 16:45 Sodium Chloride 1,000 ml @ 75 mls/hr [id number] IV Last administered on 07:12; Start 12/27/16 at 17:30; Stop 12/28/16 at 08:15; Status DC Piperacillin Sod/ Tazobactam Sod (Zosyn Per Pharmacy) 1 each PRN DAILY PRN MC SEE COMMENTS; Start 12/27/16 at 17:30; Stop 12/28/16 at 07:27; Status DC Vancomycin HCl (Vanco Per Pharmacy) 1 each PRN DAILY PRN MC SEE COMMENTS Last administered on 12/27/16 18:45; Start 12/27/16 at 17:30; Stop 12/27/16 at 18:51 ; Status DC Vancomycin HCl 2 gm/Sodium Chloride 500 ml @ 250 mls/hr 1X ONCE IV ; Start at 17:45; Stop 12/27/16 at 18:51; Status DC Piperacillin Sod/ Tazobactam Sod 3.375 gm/Sodium Chloride 50 ml @ 100 mls/hr 1X ONCE IV Last administered on 12/27/16 18:07; Start 12/27/16 at 18:00; Stop 12/27/16 at 18:29; Status DC Piperacillin Sod/ Tazobactam Sod 2.25 gm/Sodium Chloride 50 ml @ 100 mls/hr Q6HRS IV Last administered on 12/28/16 06:08; Start 12/28/16 at 00:00; Stop at 07:31; Status DC Vancomycin HCl 1.5 gm/Sodium Chloride 500 ml @ 250 mls/hr Q48H IV ; Start 12/29 at 20:00; Stop 12/29/16 at 20:00; Status DC Micafungin Sodium 100 mg/Dextrose 100 ml @ 100 mls/hr Q24H IV Last administered on 12/31/16 09:13; Start 12/28/16 at 08:00; Stop 12/31/16 at 10:43 ; Status DC Linezolid 300 ml @ 300 mls/hr Q12HR IV Last administered on 12/31/16 09:13; Start 12/28/16 at 09:00; Stop 12/31/16 at 10:43; Status DC Piperacillin Sod/ Tazobactam Sod 2.25 gm/Sodium Chloride 50 ml @ 100 mls/hr Q8HRS IV Last administered on 01/03/17 06:04; Start 12/28/16 at 14:00; Stop at 13:01; Status DC Calcium Chloride 2000 mg/Sodium Chloride 120 ml @ 240 mls/hr 1X ONCE IV Last administered on 12/28/16 08:54; Start 12/28/16 at 08:00; Stop 12/28/16 at 08:29 ; Status DC Magnesium Sulfate/ Dextrose 50 ml @ 25 mls/hr PRN DAILY PRN IV for Mag < 1.7 on am labs Last administered on 01/04/17 09:50; Start 12/28/16 at 08:15; Stop 01/06/17 at 11:48; Status DC Sodium Bicarbonate 50 meq Q2H IV Last administered on 12/28/16 15:33; Start at 08:30; Stop 12/28/16 at 10:31; Status DC Sodium Chloride 500 ml @ 0 mls/hr PRN QID PRN IV UO< 30cc/hr over previous 6hrs ; Start 12/28/16 at 08:15; Stop 01/03/17 at 18:34; Status DC Sodium Bicarbonate 150 meq/Dextrose 1,150 ml @ 100 mls/hr [id number] IV Last administered on 12/30/16 06:08; Start 12/28/16 at 09:00; Stop 12/30/16 at 08:59 ; Status DC Heparin Sodium (Porcine) (Heparin Sodium) 10,000 unit STK-MED ONCE .ROUTE ; Start 12/28/16 at 08:46; Stop 12/28/16 at 08:47; Status DC Lidocaine/Sodium Bicarbonate (Buffered Lidocaine 1%) 20 ml STK-MED ONCE IJ ; Start 12/28/16 at 08:47; Stop 12/28/16 at 08:48; Status DC Heparin Sodium/ Sodium Chloride 500 ml @ As Directed STK-MED ONCE .ROUTE ; Start 12/28/16 at 08:47; Stop 12/28/16 at 08:48; Status DC Lidocaine/Sodium Bicarbonate (Buffered Lidocaine 1%) 3 ml 1X ONCE IJ Last administered on 12/28/16 10:10; Start 12/28/16 at 09:00; Stop 12/28/16 at 09:01 ; Status DC Heparin Sodium/ Sodium Chloride 60 unit 1X ONCE IV Last administered on 10:11; Start 12/28/16 at 09:00; Stop 12/28/16 at 09:01; Status DC Heparin Sodium (Porcine) (Heparin Sodium) 2,500 unit 1X ONCE INT CAT Last administered on 12/28/16 10:10; Start 12/28/16 at 09:00; Stop 12/28/16 at 09:01 ; Status DC Midazolam HCl (Versed) 2 mg STK-MED ONCE .ROUTE ; Start 12/28/16 at 09:41; Stop 12/28/16 at 09:42; Status DC Saliva Substitute (Biotene Moisturizing Mouth) 2 spray PRN Q15MIN PRN PO DRY MOUTH Last administered on 12/31/16 17:53; Start 12/28/16 at 13:15 Gabapentin (Neurontin) 300 mg DAILY PO Last administered on 01/03/17 09:06; Start 12/29/16 at 09:00; Stop 01/03/17 at 18:21; Status DC Acetaminophen (Tylenol) 650 mg PRN Q6HRS PRN PO MILD PAIN Last administered on 01/12/17 17:23; Start 12/28/16 at 18:15 Ondansetron HCl (Zofran) 4 mg PRN Q6HRS PRN IV NAUSEA/VOMITING Last administered on 12/29/16 11:10; Start 12/29/16 at 10:45; Stop 12/29/16 at 13:53 ; Status DC Ondansetron HCl (Zofran) 8 mg PRN Q8HRS PRN IV NAUSEA/VOMITING Last administered on 12/31/16 03:35; Start 12/29/16 at 14:00; Stop 12/31/16 at 09:03 ; Status DC Prochlorperazine Edisylate (Compazine) 10 mg 1X ONCE IV Last administered on 14:00; Start 12/29/16 at 14:00; Stop 12/29/16 at 14:01; Status DC Sodium Chloride 500 ml @ 500 mls/hr 1X ONCE IV Last administered on 23:20; Start 12/29/16 at 23:30; Stop 12/30/16 at 00:29; Status DC Sodium Chloride 500 ml @ 500 mls/hr 1X ONCE IV Last administered on 00:05; Start 12/30/16 at 00:00; Stop 12/30/16 at 00:59; Status DC Sodium Chloride 1,000 ml @ 1,000 mls/hr Q1H PRN IV hypotension; Start 12/30/16 at 08:03; Stop 12/30/16 at 14:02; Status DC Albumin Human 200 ml @ 200 mls/hr 1X PRN PRN IV Hypotension Last administered on 12/30/16 09:22; Start 12/30/16 at 08:15; Stop 12/30/16 at 14:14; Status DC Sodium Chloride (Normal Saline Flush) 10 ml 1X PRN PRN IV AP catheter pack; Start 12/30/16 at 08:15; Stop 12/31/16 at 08:14; Status DC Sodium Chloride (Normal Saline Flush) 10 ml 1X PRN PRN IV [employer] catheter pack; Start 12/30/16 at 08:15; Stop 12/31/16 at 08:14; Status DC Info (PHARMACY MONITORING -- do not chart) 1 each PRN DAILY PRN MC SEE COMMENTS ; Start 12/30/16 at 08:15; Stop 01/08/17 at 12:44; Status DC Info (PHARMACY MONITORING -- do not chart) 1 each PRN DAILY PRN MC SEE COMMENTS ; Start 12/30/16 at 08:15; Status UNV Paricalcitol (Zemplar) 5 mcg 3X/WEEK IV Last administered on 01/03/17 09:06; Start 12/31/16 at 09:00; Stop 01/04/17 at 11:03; Status DC Calcium Acetate (Phoslo) 1,334 mg TIDWMEALS PO Last administered on 01/04/17 09:46; Start 12/30/16 at 12:00; Stop 01/04/17 at 11:03; Status DC Albumin Human 500 ml @ 120 mls/hr Q4HRS IV Last administered on 12/30/16 16: 45; Start 12/30/16 at 12:00; Stop 12/30/16 at 19:59; Status DC Ondansetron HCl (Zofran) 8 mg PRN Q6HRS PRN IV NAUSEA/VOMITING, 2ND CHOICE Last administered on 01/12/17 11:55; Start 12/31/16 at 08:58 Lorazepam (Ativan) 0.5 mg PRN Q4HRS PRN IV ANXIETY / AGITATION Last administered on 01/08/17 12:50; Start 12/31/16 at 09:00 Prochlorperazine Edisylate (Compazine) 10 mg PRN Q6HRS PRN IM NAUSEA/VOMITING Last administered on 12/31/16 09:15; Start 12/31/16 at 09:00; Stop 01/01/17 at 11:48; Status DC Metoclopramide HCl (Reglan) 5 mg PRN Q6HRS PRN IV NAUSEA/VOMITING, 1ST CHOICE Last administered on 01/01/17 09:42; Start 12/31/16 at 11:45 Magnesium Sulfate/ Dextrose 50 ml @ 25 mls/hr 1X ONCE IV Last administered on 12/31/16 17:54; Start 12/31/16 at 15:00; Stop 12/31/16 at 16:59; Status DC Albumin Human 500 ml @ 75 mls/hr Q6H40M IV Last administered on 01/01/17 03: 44; Start 12/31/16 at 15:15; Stop 01/01/17 at 11:14; Status DC Prochlorperazine Edisylate (Compazine) 10 mg PRN Q6HRS PRN IV NAUSEA/VOMITING, 3RD CHOICE Last administered on 01/01/17 17:38; Start 01/01/17 at 11:45 Potassium Chloride (Klor-Con) 40 meq 1X ONCE PO Last administered on 13:02; Start 01/01/17 at 12:00; Stop 01/01/17 at 12:01; Status DC Furosemide (Lasix) 40 mg 1X ONCE IVP Last administered on 01/01/17 14:24; Start 01/01/17 at 14:00; Stop 01/01/17 at 14:01; Status DC Albuterol/ Ipratropium (Duoneb) 3 ml PRN Q6HRS PRN NEB SHORTNESS OF BREATH Last administered on 01/05/17 11:26; Start 01/01/17 at 13:45; Stop 01/05/17 at 22:40; Status DC Furosemide (Lasix) 40 mg 1X ONCE IVP Last administered on 01/02/17 11:43; Start 01/02/17 at 10:45; Stop 01/02/17 at 10:46; Status DC Potassium Chloride (Klor-Con) 40 meq 1X ONCE PO Last administered on 13:21; Start 01/02/17 at 13:15; Stop 01/02/17 at 13:16; Status DC Heparin Sodium/ Dextrose 500 ml @ 0 mls/hr CONT PRN IV SEE I/O RECORD Last administered on 01/08/17 13:35; Start 01/02/17 at 14:45; Stop 01/08/17 at 15:48 ; Status DC Heparin Sodium (Porcine) (Heparin Sodium) 3,150 unit PRN Q6HRS PRN IV FOR UFH LEVEL LESS THAN 0.2; Start 01/02/17 at 14:45; Stop 01/08/17 at 15:48; Status DC Heparin Sodium (Porcine) (Heparin Sodium) 1,550 unit PRN Q6HRS PRN IV FOR UFH LEVEL 0.2 - 0.29; Start 01/02/17 at 14:45; Stop 01/08/17 at 15:48; Status DC Warfarin Sodium (Coumadin Per Pharmacy) 1 each PRN DAILY PRN MC PER PROTOCOL Last administered on 01/03/17 11:34; Start 01/02/17 at 14:45; Stop 01/03/17 at 23:01; Status DC Warfarin Sodium (Coumadin) 5 mg 1X WARF ONCE PO Last administered on 17:41; Start 01/02/17 at 16:00; Stop 01/02/17 at 16:01; Status DC Warfarin Sodium (Coumadin - No Dose Today) 1 each 1X WARF ONCE MC ; Start 01/03 at 16:00; Stop 01/03/17 at 23:01; Status DC Cefpodoxime Proxetil (Vantin) 200 mg BID PO Last administered on 01/05/17 08: 53; Start 01/03/17 at 21:00; Stop 01/05/17 at 09:37; Status DC Cyanocobalamin (Vitamin B-12) 1,000 mcg QMONTH IM Last administered on 09:49; Start 01/04/17 at 09:00 Gabapentin (Neurontin) 900 mg TID PO Last administered on 01/12/17 08:03; Start 01/03/17 at 21:00; Stop 01/12/17 at 15:41; Status DC Sodium Chloride 1,000 ml @ 75 mls/hr [id number] IV Last administered on 09:46; Start 01/03/17 at 18:45; Stop 01/04/17 at 11:04; Status DC Potassium Chloride (Klor-Con) 20 meq 1X ONCE PO Last administered on 18:56; Start 01/03/17 at 18:45; Stop 01/03/17 at 18:46; Status DC Magnesium Sulfate/ Dextrose 50 ml @ 25 mls/hr PRN DAILY PRN IV for Mag < 1.7 on am labs; Start 01/04/17 at 10:45; Status UNV Potassium Chloride 50 ml @ 50 mls/hr PRN Q6HRS PRN IV For K < 3.7 Last administered on 01/05/17 13:10; Start 01/04/17 at 10:45 Potassium Chloride 50 ml @ 50 mls/hr PRN Q2HR PRN IV total of 40mEq for K < 3.5 Last administered on 01/04/17 13:46; Start 01/04/17 at 10:45 Albumin Human 100 ml @ 100 mls/hr TID IV Last administered on 01/06/17 08:53 ; Start 01/04/17 at 14:00; Stop 01/06/17 at 09:59; Status DC Warfarin Sodium (Coumadin) 4 mg DAILY16 PO Last administered on 01/08/17 17:15 ; Start 01/04/17 at 17:00; Stop 01/09/17 at 08:15; Status DC Warfarin Sodium (Coumadin Per Physician) 1 each PRN DAILY PRN MC SEE COMMENTS Last administered on 01/10/17 15:26; Start 01/04/17 at 17:00; Stop 01/11/17 at 06 :14; Status DC Magnesium Sulfate/ Dextrose 100 ml @ 100 mls/hr 1X ONCE IV Last administered on 01/05/17 11:35; Start 01/05/17 at 11:00; Stop 01/05/17 at 11:59; Status DC Magnesium Sulfate/ Dextrose 50 ml @ 25 mls/hr PRN DAILY PRN IV for Mag < 1.7 on am labs Last administered on 01/08/17 09:27; Start 01/05/17 at 11:00 Potassium Chloride 50 ml @ 25 mls/hr Q2HR IV Last administered on 01/05/17 23: 42; Start 01/05/17 at 16:00; Stop 01/05/17 at 19:59; Status DC Iohexol (Omnipaque 300 Mg/ml) 60 ml 1X ONCE IV ; Start 01/05/17 at 16:15; Stop 01/05/17 at 16:16; Status DC Iohexol (Omnipaque 240 Mg/ml) 30 ml 1X ONCE PO Last administered on 01/05/17 15:45; Start 01/05/17 at 16:15; Stop 01/05/17 at 16:16; Status DC Info (Do NOT chart on this entry -- for MONITORING) 1 each PRN DAILY PRN MC SEE COMMENTS; Start 01/05/17 at 16:15; Stop 01/07/17 at 16:14; Status DC Albuterol/ Ipratropium (Duoneb) 3 ml RTQID NEB Last administered on 01/13/17 11 :28; Start 01/05/17 at 20:00 Budesonide (Pulmicort) 0.5 mg RTBID NEB Last administered on 01/13/17 08:40; Start 01/05/17 at 20:00 Furosemide (Lasix) 20 mg 1X ONCE IVP Last administered on 01/05/17 22:04; Start 01/05/17 at 22:00; Stop 01/05/17 at 22:01; Status DC Albuterol Sulfate (Ventolin Neb Soln) 2.5 mg PRN Q6HRS PRN NEB SHORTNESS OF BREATH Last administered on 01/08/17 03:37; Start 01/05/17 at 22:40 Furosemide (Lasix) 40 mg 1X ONCE IVP Last administered on 01/07/17 11:50; Start 01/07/17 at 11:30; Stop 01/07/17 at 11:31; Status DC Furosemide (Lasix) 40 mg DAILY IVP Last administered on 01/13/17 09:11; Start 01/08/17 at 09:00 Albumin Human 100 ml @ 100 mls/hr DAILY IV Last administered on 01/10/17 08:22 ; Start 01/08/17 at 17:00; Stop 01/10/17 at 16:59; Status DC Tramadol HCl (Ultram) 50 mg PRN Q6HRS PRN PO MODERATE PAIN Last administered on 01/08/17 22:28; Start 01/08/17 at 22:15 Phytonadione (Vitamin K) 10 mg 1X ONCE SQ Last administered on 01/10/17 09:42 ; Start 01/10/17 at 09:15; Stop 01/10/17 at 09:16; Status DC Heparin Sodium (Porcine) (Heparin Sodium) 10,000 unit STK-MED ONCE .ROUTE ; Start 01/10/17 at 10:39; Stop 01/10/17 at 10:40; Status DC Lidocaine/Sodium Bicarbonate (Buffered Lidocaine 1%) 20 ml STK-MED ONCE IJ ; Start 01/10/17 at 10:39; Stop 01/10/17 at 10:40; Status DC Heparin Sodium/ Sodium Chloride 500 ml @ As Directed STK-MED ONCE .ROUTE ; Start 01/10/17 at 10:39; Stop 01/10/17 at 10:40; Status DC Lidocaine/Sodium Bicarbonate (Buffered Lidocaine 1%) 3 ml 1X ONCE IJ Last administered on 01/10/17 13:27; Start 01/10/17 at 12:30; Stop 01/10/17 at 12:31; Status DC Heparin Sodium/ Sodium Chloride 60 unit 1X ONCE IV Last administered on 13:28; Start 01/10/17 at 12:30; Stop 01/10/17 at 12:31; Status DC Heparin Sodium (Porcine) (Heparin Sodium) 2,800 unit 1X ONCE INT CAT Last administered on 01/10/17 13:28; Start 01/10/17 at 12:30; Stop 01/10/17 at 12:31; Status DC Phytonadione 10 mg/Sodium Chloride 51 ml @ 102 mls/hr 1X ONCE IV Last administered on 01/11/17 14:22; Start 01/11/17 at 11:30; Stop 01/11/17 at 11:59; Status DC Active Scripts Active Reported Gabapentin 300 Mg Capsule 900 Mg PO TID Claritin (Loratadine) 10 Mg Tablet 1 Tab PO DAILY PRN Bactrim 400-80 Mg Tablet (Sulfamethoxazole/Trimethoprim) 1 Each Tablet 1 Tab PO BID Gabapentin 300 Mg Capsule 300 Mg PO TID Zestril (Lisinopril) 10 Mg Tablet 10 Mg PO DAILY Cyanocobalamin Injection (Cyanocobalamin (Vitamin B-12)) 1,000 Mcg/1 Ml Vial 1, 000 Mcg QMONTH Percocet 5-325 Mg Tablet (Oxycodone/Acetaminophen) 1 Each Tablet 1-2 Tab PO Q4- 6HRS Prilosec Otc (Omeprazole Magnesium) 20 Mg Tablet.dr 20 Mg PO DAILY Vitals/I & O Vital Sign - Last 24 Hours 01/12/17 01/12/17 01/12/17 01/12/17 15:14 15:51 17:00 18:11 Temp 98.0 98.0 Pulse 77 80 76 Resp 18 18 18 B/P (MAP) 136/63 (87) 140/62 (88) 137/57 (83) Pulse Ox 98 97 O2 Delivery Nasal Cannula Nasal Cannula Nasal Cannula Nasal Cannula O2 Flow Rate 4.0 4.0 4.0 4.0 01/12/17 01/12/17 01/12/17 01/12/17 20:00 20:00 20:01 23:00 Temp 97.8 97.9 97.8 97.9 Pulse 99 77 Resp 20 18 B/P (MAP) 144/63 (90) 132/70 (90) Pulse Ox 99 98 99 O2 Delivery Nasal Cannula Nasal Cannula Nasal Cannula Nasal Cannula O2 Flow Rate 4.0 4.0 4.0 4.0 01/13/17 01/13/17 01/13/17 01/13/17 00:15 03:02 07:00 08:00 Temp 97.7 98.3 97.7 98.3 Pulse 74 81 Resp 18 17 B/P (MAP) 137/64 (88) 141/62 (88) Pulse Ox 95 97 O2 Delivery Nasal Cannula Nasal Cannula Nasal Cannula Nasal Cannula O2 Flow Rate 4.0 4.0 2.0 2.0 01/13/17 01/13/17 08:41 11:31 Pulse Ox 99 99 O2 Delivery Nasal Cannula Nasal Cannula O2 Flow Rate 4.0 2.0 Intake and Output 01/12/17 01/12/17 01/13/17 15:00 23:00 07:00 Intake Total 240 ml 360 ml 50 ml Output Total 2000 ml 900 ml Balance 240 ml -1640 ml -850 ml LETICIA TREVINO MD January 13, 2017 12:21
[2017-01-13 15:00] VITALS: BP 152/70
--- NOTE | 2017-01-13 15:04 | PDOC ---
PROGRESS NOTES Assessment Problems Medical Problems: (1) Cellulitis Status: Acute Metabolic encephalopathy Asterixis, improved Gabapentin toxicity. Note symptoms disappeared on dialysis, recurred when renal function worsened, now better again History of 2 different cancers EEG negative for seizure activity, MRI negative for stroke Plan Continue holding gabapentin, I don't think we need to taper it as it should naturally dissipate, but did inform patient and of risk of seizure. No withdrawal signs No additional neuro tests needed Okay to go to [facility] Followup in office in 4 weeks, we can discuss trial of Lyrica then Subjective no complaints Objective Vital Signs Date Time Temp Pulse Resp B/P (MAP) Pulse Ox O2 Delivery O2 Flow Rate FiO2 01/13/17 11:31 99 Nasal Cannula 2.0 01/13/17 11:00 98.0 82 18 150/57 (88) 98.0 Intake and Output 01/13/17 07:00 Intake Total 650 ml Output Total 2900 ml Balance -2250 ml Intake Oral 650 ml Output Urine Total 2900 ml PHYSICAL EXAM Alert. Oriented to time, place and person. PERRL. EOMI. CN: no focal findings. Muscle tone: normal. Muscle strength: 4/5 No asterixis DTR: 1+ Plantar reflex: flexor Gait: not examined in bed. Sensory exam: no abnormal findings. No cerebellar signs elicited. Review of Relevant I have reviewed the following items ketty (where applicable) has been applied. Labs Laboratory Tests Test 01/12/17 05:14 01/12/17 10:10 01/12/17 14:20 01/13/17 05:00 Prothrombin Time 14.6 SEC (11.7-14.0) Prothromb Time International Ratio 1.2 (0.8-1.1) Sodium Level 139 mmol/L (136-145) 143 mmol/L (136-145) Potassium Level 4.5 mmol/L (3.5-5.1) 4.2 mmol/L (3.5-5.1) Chloride Level 104 mmol/L (98-107) 106 mmol/L (98-107) Carbon Dioxide Level 27 mmol/L (21-32) 29 mmol/L (21-32) Anion Gap 8 (6-14) 8 (6-14) Blood Urea Nitrogen 34 mg/dL (7-20) 29 mg/dL (7-20) Creatinine 1.6 mg/dL (0.6-1.0) 1.0 mg/dL (0.6-1.0) Estimated GFR (Cockcroft-Gault) 32.2 55.3 Glucose Level 93 mg/dL (70-99) 85 mg/dL (70-99) Calcium Level 7.8 mg/dL (8.5-10.1) 7.9 mg/dL (8.5-10.1) Phosphorus Level 3.9 mg/dL (2.6-4.7) Albumin 3.1 g/dL (3.4-5.0) 2.8 g/dL (3.4-5.0) Ammonia 25 mcmol/L (11-34) Urine Collection Type Unknown Urine Color Yellow Urine Clarity Clear Urine pH 5.0 Urine Specific [place] 1.010 Urine Protein Negative mg/dL (NEG-TRACE) Urine Glucose (UA) Negative mg/dL (NEG) Urine Ketones (Stick) Negative mg/dL (NEG) Urine Blood Large (NEG) Urine Nitrite Negative (NEG) Urine Bilirubin Negative (NEG) Urine Urobilinogen Dipstick 0.2 mg/dL (0.2 mg/dL) Urine Leukocyte Esterase Moderate (NEG) Urine RBC 20-40 /HPF (0-2) Urine WBC 11-20 /HPF (0-4) Urine Bacteria Many /HPF (0-FEW) Urine Mucus Slight /LPF Urine Yeast Present /HPF BUN/Creatinine Ratio 29 (6-20) Total Bilirubin 1.3 mg/dL (0.2-1.0) Aspartate Amino Transf (AST/SGOT) 37 U/L (15-37) Alanine Aminotransferase (ALT/SGPT) 20 U/L (14-59) Alkaline Phosphatase 152 U/L (46-116) Total Protein 5.6 g/dL (6.4-8.2) Albumin/Globulin Ratio 1.0 (1.0-1.7) Test 01/13/17 06:20 White Blood Count 7.1 x10^3/uL (4.0-11.0) Red Blood Count 2.22 x10^6/uL (3.50-5.40) Hemoglobin 7.3 g/dL (12.0-15.5) Hematocrit 21.5 % (36.0-47.0) Mean Corpuscular Volume 97 fL (79-100) Mean Corpuscular Hemoglobin 33 pg (25-35) Mean Corpuscular Hemoglobin Concent 34 g/dL (31-37) Red Cell Distribution Width 23.1 % (11.5-14.5) Platelet Count 301 x10^3/uL (140-400) Neutrophils (%) (Auto) 57 % (31-73) Lymphocytes (%) (Auto) 5 % (24-48) Monocytes (%) (Auto) 38 % (0-9) Eosinophils (%) (Auto) 1 % (0-3) Basophils (%) (Auto) 1 % (0-3) Neutrophils # (Auto) 4.0 x10^3uL (1.8-7.7) Lymphocytes # (Auto) 0.3 x10^3/uL (1.0-4.8) Monocytes # (Auto) 2.7 x10^3/uL (0.0-1.1) Eosinophils # (Auto) 0.0 x10^3/uL (0.0-0.7) Basophils # (Auto) 0.0 x10^3/uL (0.0-0.2) Prothrombin Time 14.0 SEC (11.7-14.0) Prothromb Time International Ratio 1.2 (0.8-1.1) Laboratory Tests Test 01/13/17 05:00 01/13/17 06:20 Sodium Level 143 mmol/L (136-145) Potassium Level 4.2 mmol/L (3.5-5.1) Chloride Level 106 mmol/L (98-107) Carbon Dioxide Level 29 mmol/L (21-32) Anion Gap 8 (6-14) Blood Urea Nitrogen 29 mg/dL (7-20) Creatinine 1.0 mg/dL (0.6-1.0) Estimated GFR (Cockcroft-Gault) 55.3 BUN/Creatinine Ratio 29 (6-20) Glucose Level 85 mg/dL (70-99) Calcium Level 7.9 mg/dL (8.5-10.1) Total Bilirubin 1.3 mg/dL (0.2-1.0) Aspartate Amino Transf (AST/SGOT) 37 U/L (15-37) Alanine Aminotransferase (ALT/SGPT) 20 U/L (14-59) Alkaline Phosphatase 152 U/L (46-116) Total Protein 5.6 g/dL (6.4-8.2) Albumin 2.8 g/dL (3.4-5.0) Albumin/Globulin Ratio 1.0 (1.0-1.7) White Blood Count 7.1 x10^3/uL (4.0-11.0) Red Blood Count 2.22 x10^6/uL (3.50-5.40) Hemoglobin 7.3 g/dL (12.0-15.5) Hematocrit 21.5 % (36.0-47.0) Mean Corpuscular Volume 97 fL (79-100) Mean Corpuscular Hemoglobin 33 pg (25-35) Mean Corpuscular Hemoglobin Concent 34 g/dL (31-37) Red Cell Distribution Width 23.1 % (11.5-14.5) Platelet Count 301 x10^3/uL (140-400) Neutrophils (%) (Auto) 57 % (31-73) Lymphocytes (%) (Auto) 5 % (24-48) Monocytes (%) (Auto) 38 % (0-9) Eosinophils (%) (Auto) 1 % (0-3) Basophils (%) (Auto) 1 % (0-3) Neutrophils # (Auto) 4.0 x10^3uL (1.8-7.7) Lymphocytes # (Auto) 0.3 x10^3/uL (1.0-4.8) Monocytes # (Auto) 2.7 x10^3/uL (0.0-1.1) Eosinophils # (Auto) 0.0 x10^3/uL (0.0-0.7) Basophils # (Auto) 0.0 x10^3/uL (0.0-0.2) Prothrombin Time 14.0 SEC (11.7-14.0) Prothromb Time International Ratio 1.2 (0.8-1.1) Microbiology 12/27/16 Blood Culture - Final, Complete NO GROWTH AFTER 5 DAYS 12/31/16 Urine Culture - Final, Complete 12/31/16 Urine Culture Result 1 (MANE) - Final, Complete Medications Current Medications Acetaminophen (Tylenol) 650 mg 1X ONCE PO Last administered on 12/27/16t 09:11 ; Start 12/27/16 at 08:15; Stop 12/27/16 at 08:22; Status DC Diphenhydramine HCl (Benadryl) 25 mg 1X ONCE PO Last administered on 09:12; Start 12/27/16 at 08:15; Stop 12/27/16 at 08:22; Status DC Furosemide (Lasix) 20 mg 1X ONCE IVP ; Start 12/27/16 at 08:15; Stop 12/27/16 at 08:22; Status DC Fentanyl Citrate (Fentanyl 2ml Vial) 25 mcg PRN QID PRN IV PAIN; Start at 16:45; Stop 12/29/16 at 21:00; Status DC Lisinopril (Prinivil) 10 mg DAILY PO ; Start 12/28/16 at 09:00; Stop 12/28/16 at 09:00; Status DC Oxycodone/ Acetaminophen (Percocet 5/325) 1 tab Q4HRS PRN PO MILD/MODERATE PAIN Last administered on 01/09/17 01:27; Start 12/27/16 at 16:45 Gabapentin (Neurontin) 300 mg TID PO Last administered on 12/28/16 10:44; Start 12/27/16 at 21:00; Stop 12/28/16 at 15:23; Status DC Cetirizine HCl (Zyrtec) 10 mg PRN DAILY PRN PO ALLERGIES; Start 12/28/16 at 09: 00 Pantoprazole Sodium (Protonix) 40 mg DAILYAC PO Last administered on 01/13/17 09:11; Start 12/28/16 at 07:30 Oxycodone/ Acetaminophen (Percocet 5/325) 2 tab Q4HRS PRN PO SEVERE PAIN Last administered on 01/11/17 21:50; Start 12/27/16 at 16:45 Sodium Chloride 1,000 ml @ 75 mls/hr [id number] IV Last administered on 07:12; Start 12/27/16 at 17:30; Stop 12/28/16 at 08:15; Status DC Piperacillin Sod/ Tazobactam Sod (Zosyn Per Pharmacy) 1 each PRN DAILY PRN MC SEE COMMENTS; Start 12/27/16 at 17:30; Stop 12/28/16 at 07:27; Status DC Vancomycin HCl (Vanco Per Pharmacy) 1 each PRN DAILY PRN MC SEE COMMENTS Last administered on 12/27/16 18:45; Start 12/27/16 at 17:30; Stop 12/27/16 at 18:51 ; Status DC Vancomycin HCl 2 gm/Sodium Chloride 500 ml @ 250 mls/hr 1X ONCE IV ; Start at 17:45; Stop 12/27/16 at 18:51; Status DC Piperacillin Sod/ Tazobactam Sod 3.375 gm/Sodium Chloride 50 ml @ 100 mls/hr 1X ONCE IV Last administered on 12/27/16 18:07; Start 12/27/16 at 18:00; Stop 12/27/16 at 18:29; Status DC Piperacillin Sod/ Tazobactam Sod 2.25 gm/Sodium Chloride 50 ml @ 100 mls/hr Q6HRS IV Last administered on 12/28/16 06:08; Start 12/28/16 at 00:00; Stop at 07:31; Status DC Vancomycin HCl 1.5 gm/Sodium Chloride 500 ml @ 250 mls/hr Q48H IV ; Start 12/29 at 20:00; Stop 12/29/16 at 20:00; Status DC Micafungin Sodium 100 mg/Dextrose 100 ml @ 100 mls/hr Q24H IV Last administered on 12/31/16 09:13; Start 12/28/16 at 08:00; Stop 12/31/16 at 10:43 ; Status DC Linezolid 300 ml @ 300 mls/hr Q12HR IV Last administered on 12/31/16 09:13; Start 12/28/16 at 09:00; Stop 12/31/16 at 10:43; Status DC Piperacillin Sod/ Tazobactam Sod 2.25 gm/Sodium Chloride 50 ml @ 100 mls/hr Q8HRS IV Last administered on 01/03/17 06:04; Start 12/28/16 at 14:00; Stop at 13:01; Status DC Calcium Chloride 2000 mg/Sodium Chloride 120 ml @ 240 mls/hr 1X ONCE IV Last administered on 12/28/16 08:54; Start 12/28/16 at 08:00; Stop 12/28/16 at 08:29 ; Status DC Magnesium Sulfate/ Dextrose 50 ml @ 25 mls/hr PRN DAILY PRN IV for Mag < 1.7 on am labs Last administered on 01/04/17 09:50; Start 12/28/16 at 08:15; Stop 01/06/17 at 11:48; Status DC Sodium Bicarbonate 50 meq Q2H IV Last administered on 12/28/16 15:33; Start at 08:30; Stop 12/28/16 at 10:31; Status DC Sodium Chloride 500 ml @ 0 mls/hr PRN QID PRN IV UO< 30cc/hr over previous 6hrs ; Start 12/28/16 at 08:15; Stop 01/03/17 at 18:34; Status DC Sodium Bicarbonate 150 meq/Dextrose 1,150 ml @ 100 mls/hr [id number] IV Last administered on 12/30/16 06:08; Start 12/28/16 at 09:00; Stop 12/30/16 at 08:59 ; Status DC Heparin Sodium (Porcine) (Heparin Sodium) 10,000 unit STK-MED ONCE .ROUTE ; Start 12/28/16 at 08:46; Stop 12/28/16 at 08:47; Status DC Lidocaine/Sodium Bicarbonate (Buffered Lidocaine 1%) 20 ml STK-MED ONCE IJ ; Start 12/28/16 at 08:47; Stop 12/28/16 at 08:48; Status DC Heparin Sodium/ Sodium Chloride 500 ml @ As Directed STK-MED ONCE .ROUTE ; Start 12/28/16 at 08:47; Stop 12/28/16 at 08:48; Status DC Lidocaine/Sodium Bicarbonate (Buffered Lidocaine 1%) 3 ml 1X ONCE IJ Last administered on 12/28/16 10:10; Start 12/28/16 at 09:00; Stop 12/28/16 at 09:01 ; Status DC Heparin Sodium/ Sodium Chloride 60 unit 1X ONCE IV Last administered on 10:11; Start 12/28/16 at 09:00; Stop 12/28/16 at 09:01; Status DC Heparin Sodium (Porcine) (Heparin Sodium) 2,500 unit 1X ONCE INT CAT Last administered on 12/28/16 10:10; Start 12/28/16 at 09:00; Stop 12/28/16 at 09:01 ; Status DC Midazolam HCl (Versed) 2 mg STK-MED ONCE .ROUTE ; Start 12/28/16 at 09:41; Stop 12/28/16 at 09:42; Status DC Saliva Substitute (Biotene Moisturizing Mouth) 2 spray PRN Q15MIN PRN PO DRY MOUTH Last administered on 12/31/16 17:53; Start 12/28/16 at 13:15 Gabapentin (Neurontin) 300 mg DAILY PO Last administered on 01/03/17 09:06; Start 12/29/16 at 09:00; Stop 01/03/17 at 18:21; Status DC Acetaminophen (Tylenol) 650 mg PRN Q6HRS PRN PO MILD PAIN Last administered on 01/12/17 17:23; Start 12/28/16 at 18:15 Ondansetron HCl (Zofran) 4 mg PRN Q6HRS PRN IV NAUSEA/VOMITING Last administered on 12/29/16 11:10; Start 12/29/16 at 10:45; Stop 12/29/16 at 13:53 ; Status DC Ondansetron HCl (Zofran) 8 mg PRN Q8HRS PRN IV NAUSEA/VOMITING Last administered on 12/31/16 03:35; Start 12/29/16 at 14:00; Stop 12/31/16 at 09:03 ; Status DC Prochlorperazine Edisylate (Compazine) 10 mg 1X ONCE IV Last administered on 14:00; Start 12/29/16 at 14:00; Stop 12/29/16 at 14:01; Status DC Sodium Chloride 500 ml @ 500 mls/hr 1X ONCE IV Last administered on 23:20; Start 12/29/16 at 23:30; Stop 12/30/16 at 00:29; Status DC Sodium Chloride 500 ml @ 500 mls/hr 1X ONCE IV Last administered on 00:05; Start 12/30/16 at 00:00; Stop 12/30/16 at 00:59; Status DC Sodium Chloride 1,000 ml @ 1,000 mls/hr Q1H PRN IV hypotension; Start 12/30/16 at 08:03; Stop 12/30/16 at 14:02; Status DC Albumin Human 200 ml @ 200 mls/hr 1X PRN PRN IV Hypotension Last administered on 12/30/16 09:22; Start 12/30/16 at 08:15; Stop 12/30/16 at 14:14; Status DC Sodium Chloride (Normal Saline Flush) 10 ml 1X PRN PRN IV AP catheter pack; Start 12/30/16 at 08:15; Stop 12/31/16 at 08:14; Status DC Sodium Chloride (Normal Saline Flush) 10 ml 1X PRN PRN IV DIGITAL MEDIA REPRESENTATIVE catheter pack; Start 12/30/16 at 08:15; Stop 12/31/16 at 08:14; Status DC Info (PHARMACY MONITORING -- do not chart) 1 each PRN DAILY PRN MC SEE COMMENTS ; Start 12/30/16 at 08:15; Stop 01/08/17 at 12:44; Status DC Info (PHARMACY MONITORING -- do not chart) 1 each PRN DAILY PRN MC SEE COMMENTS ; Start 12/30/16 at 08:15; Status UNV Paricalcitol (Zemplar) 5 mcg 3X/WEEK IV Last administered on 01/03/17 09:06; Start 12/31/16 at 09:00; Stop 01/04/17 at 11:03; Status DC Calcium Acetate (Phoslo) 1,334 mg TIDWMEALS PO Last administered on 01/04/17 09:46; Start 12/30/16 at 12:00; Stop 01/04/17 at 11:03; Status DC Albumin Human 500 ml @ 120 mls/hr Q4HRS IV Last administered on 12/30/16 16: 45; Start 12/30/16 at 12:00; Stop 12/30/16 at 19:59; Status DC Ondansetron HCl (Zofran) 8 mg PRN Q6HRS PRN IV NAUSEA/VOMITING, 2ND CHOICE Last administered on 01/12/17 11:55; Start 12/31/16 at 08:58 Lorazepam (Ativan) 0.5 mg PRN Q4HRS PRN IV ANXIETY / AGITATION Last administered on 01/08/17 12:50; Start 12/31/16 at 09:00 Prochlorperazine Edisylate (Compazine) 10 mg PRN Q6HRS PRN IM NAUSEA/VOMITING Last administered on 12/31/16 09:15; Start 12/31/16 at 09:00; Stop 01/01/17 at 11:48; Status DC Metoclopramide HCl (Reglan) 5 mg PRN Q6HRS PRN IV NAUSEA/VOMITING, 1ST CHOICE Last administered on 01/01/17 09:42; Start 12/31/16 at 11:45 Magnesium Sulfate/ Dextrose 50 ml @ 25 mls/hr 1X ONCE IV Last administered on 12/31/16 17:54; Start 12/31/16 at 15:00; Stop 12/31/16 at 16:59; Status DC Albumin Human 500 ml @ 75 mls/hr Q6H40M IV Last administered on 01/01/17 03: 44; Start 12/31/16 at 15:15; Stop 01/01/17 at 11:14; Status DC Prochlorperazine Edisylate (Compazine) 10 mg PRN Q6HRS PRN IV NAUSEA/VOMITING, 3RD CHOICE Last administered on 01/01/17 17:38; Start 01/01/17 at 11:45 Potassium Chloride (Klor-Con) 40 meq 1X ONCE PO Last administered on 13:02; Start 01/01/17 at 12:00; Stop 01/01/17 at 12:01; Status DC Furosemide (Lasix) 40 mg 1X ONCE IVP Last administered on 01/01/17 14:24; Start 01/01/17 at 14:00; Stop 01/01/17 at 14:01; Status DC Albuterol/ Ipratropium (Duoneb) 3 ml PRN Q6HRS PRN NEB SHORTNESS OF BREATH Last administered on 01/05/17 11:26; Start 01/01/17 at 13:45; Stop 01/05/17 at 22:40; Status DC Furosemide (Lasix) 40 mg 1X ONCE IVP Last administered on 01/02/17 11:43; Start 01/02/17 at 10:45; Stop 01/02/17 at 10:46; Status DC Potassium Chloride (Klor-Con) 40 meq 1X ONCE PO Last administered on 13:21; Start 01/02/17 at 13:15; Stop 01/02/17 at 13:16; Status DC Heparin Sodium/ Dextrose 500 ml @ 0 mls/hr CONT PRN IV SEE I/O RECORD Last administered on 01/08/17 13:35; Start 01/02/17 at 14:45; Stop 01/08/17 at 15:48 ; Status DC Heparin Sodium (Porcine) (Heparin Sodium) 3,150 unit PRN Q6HRS PRN IV FOR UFH LEVEL LESS THAN 0.2; Start 01/02/17 at 14:45; Stop 01/08/17 at 15:48; Status DC Heparin Sodium (Porcine) (Heparin Sodium) 1,550 unit PRN Q6HRS PRN IV FOR UFH LEVEL 0.2 - 0.29; Start 01/02/17 at 14:45; Stop 01/08/17 at 15:48; Status DC Warfarin Sodium (Coumadin Per Pharmacy) 1 each PRN DAILY PRN MC PER PROTOCOL Last administered on 01/03/17 11:34; Start 01/02/17 at 14:45; Stop 01/03/17 at 23:01; Status DC Warfarin Sodium (Coumadin) 5 mg 1X WARF ONCE PO Last administered on 17:41; Start 01/02/17 at 16:00; Stop 01/02/17 at 16:01; Status DC Warfarin Sodium (Coumadin - No Dose Today) 1 each 1X WARF ONCE MC ; Start 01/03 at 16:00; Stop 01/03/17 at 23:01; Status DC Cefpodoxime Proxetil (Vantin) 200 mg BID PO Last administered on 01/05/17 08: 53; Start 01/03/17 at 21:00; Stop 01/05/17 at 09:37; Status DC Cyanocobalamin (Vitamin B-12) 1,000 mcg QMONTH IM Last administered on 09:49; Start 01/04/17 at 09:00 Gabapentin (Neurontin) 900 mg TID PO Last administered on 01/12/17 08:03; Start 01/03/17 at 21:00; Stop 01/12/17 at 15:41; Status DC Sodium Chloride 1,000 ml @ 75 mls/hr [id number] IV Last administered on 09:46; Start 01/03/17 at 18:45; Stop 01/04/17 at 11:04; Status DC Potassium Chloride (Klor-Con) 20 meq 1X ONCE PO Last administered on 18:56; Start 01/03/17 at 18:45; Stop 01/03/17 at 18:46; Status DC Magnesium Sulfate/ Dextrose 50 ml @ 25 mls/hr PRN DAILY PRN IV for Mag < 1.7 on am labs; Start 01/04/17 at 10:45; Status UNV Potassium Chloride 50 ml @ 50 mls/hr PRN Q6HRS PRN IV For K < 3.7 Last administered on 01/05/17 13:10; Start 01/04/17 at 10:45 Potassium Chloride 50 ml @ 50 mls/hr PRN Q2HR PRN IV total of 40mEq for K < 3.5 Last administered on 01/04/17 13:46; Start 01/04/17 at 10:45 Albumin Human 100 ml @ 100 mls/hr TID IV Last administered on 01/06/17 08:53 ; Start 01/04/17 at 14:00; Stop 01/06/17 at 09:59; Status DC Warfarin Sodium (Coumadin) 4 mg DAILY16 PO Last administered on 01/08/17 17:15 ; Start 01/04/17 at 17:00; Stop 01/09/17 at 08:15; Status DC Warfarin Sodium (Coumadin Per Physician) 1 each PRN DAILY PRN MC SEE COMMENTS Last administered on 01/10/17 15:26; Start 01/04/17 at 17:00; Stop 01/11/17 at 06 :14; Status DC Magnesium Sulfate/ Dextrose 100 ml @ 100 mls/hr 1X ONCE IV Last administered on 01/05/17 11:35; Start 01/05/17 at 11:00; Stop 01/05/17 at 11:59; Status DC Magnesium Sulfate/ Dextrose 50 ml @ 25 mls/hr PRN DAILY PRN IV for Mag < 1.7 on am labs Last administered on 01/08/17 09:27; Start 01/05/17 at 11:00 Potassium Chloride 50 ml @ 25 mls/hr Q2HR IV Last administered on 01/05/17 23: 42; Start 01/05/17 at 16:00; Stop 01/05/17 at 19:59; Status DC Iohexol (Omnipaque 300 Mg/ml) 60 ml 1X ONCE IV ; Start 01/05/17 at 16:15; Stop 01/05/17 at 16:16; Status DC Iohexol (Omnipaque 240 Mg/ml) 30 ml 1X ONCE PO Last administered on 01/05/17 15:45; Start 01/05/17 at 16:15; Stop 01/05/17 at 16:16; Status DC Info (Do NOT chart on this entry -- for MONITORING) 1 each PRN DAILY PRN MC SEE COMMENTS; Start 01/05/17 at 16:15; Stop 01/07/17 at 16:14; Status DC Albuterol/ Ipratropium (Duoneb) 3 ml RTQID NEB Last administered on 01/13/17 11 :28; Start 01/05/17 at 20:00 Budesonide (Pulmicort) 0.5 mg RTBID NEB Last administered on 01/13/17 08:40; Start 01/05/17 at 20:00 Furosemide (Lasix) 20 mg 1X ONCE IVP Last administered on 01/05/17 22:04; Start 01/05/17 at 22:00; Stop 01/05/17 at 22:01; Status DC Albuterol Sulfate (Ventolin Neb Soln) 2.5 mg PRN Q6HRS PRN NEB SHORTNESS OF BREATH Last administered on 01/08/17 03:37; Start 01/05/17 at 22:40 Furosemide (Lasix) 40 mg 1X ONCE IVP Last administered on 01/07/17 11:50; Start 01/07/17 at 11:30; Stop 01/07/17 at 11:31; Status DC Furosemide (Lasix) 40 mg DAILY IVP Last administered on 01/13/17 09:11; Start 01/08/17 at 09:00 Albumin Human 100 ml @ 100 mls/hr DAILY IV Last administered on 01/10/17 08:22 ; Start 01/08/17 at 17:00; Stop 01/10/17 at 16:59; Status DC Tramadol HCl (Ultram) 50 mg PRN Q6HRS PRN PO MODERATE PAIN Last administered on 01/08/17 22:28; Start 01/08/17 at 22:15 Phytonadione (Vitamin K) 10 mg 1X ONCE SQ Last administered on 01/10/17 09:42 ; Start 01/10/17 at 09:15; Stop 01/10/17 at 09:16; Status DC Heparin Sodium (Porcine) (Heparin Sodium) 10,000 unit STK-MED ONCE .ROUTE ; Start 01/10/17 at 10:39; Stop 01/10/17 at 10:40; Status DC Lidocaine/Sodium Bicarbonate (Buffered Lidocaine 1%) 20 ml STK-MED ONCE IJ ; Start 01/10/17 at 10:39; Stop 01/10/17 at 10:40; Status DC Heparin Sodium/ Sodium Chloride 500 ml @ As Directed STK-MED ONCE .ROUTE ; Start 01/10/17 at 10:39; Stop 01/10/17 at 10:40; Status DC Lidocaine/Sodium Bicarbonate (Buffered Lidocaine 1%) 3 ml 1X ONCE IJ Last administered on 01/10/17 13:27; Start 01/10/17 at 12:30; Stop 01/10/17 at 12:31; Status DC Heparin Sodium/ Sodium Chloride 60 unit 1X ONCE IV Last administered on 13:28; Start 01/10/17 at 12:30; Stop 01/10/17 at 12:31; Status DC Heparin Sodium (Porcine) (Heparin Sodium) 2,800 unit 1X ONCE INT CAT Last administered on 01/10/17 13:28; Start 01/10/17 at 12:30; Stop 01/10/17 at 12:31; Status DC Phytonadione 10 mg/Sodium Chloride 51 ml @ 102 mls/hr 1X ONCE IV Last administered on 01/11/17 14:22; Start 01/11/17 at 11:30; Stop 01/11/17 at 11:59; Status DC Active Scripts Active Reported Gabapentin 300 Mg Capsule 900 Mg PO TID Claritin (Loratadine) 10 Mg Tablet 1 Tab PO DAILY PRN Bactrim 400-80 Mg Tablet (Sulfamethoxazole/Trimethoprim) 1 Each Tablet 1 Tab PO BID Gabapentin 300 Mg Capsule 300 Mg PO TID Zestril (Lisinopril) 10 Mg Tablet 10 Mg PO DAILY Cyanocobalamin Injection (Cyanocobalamin (Vitamin B-12)) 1,000 Mcg/1 Ml Vial 1, 000 Mcg QMONTH Percocet 5-325 Mg Tablet (Oxycodone/Acetaminophen) 1 Each Tablet 1-2 Tab PO Q4- 6HRS Prilosec Otc (Omeprazole Magnesium) 20 Mg Tablet.dr 20 Mg PO DAILY Vitals/I & O Vital Sign - Last 24 Hours 01/12/17 01/12/17 01/12/17 01/12/17 15:14 15:51 17:00 18:11 Temp 98.0 98.0 Pulse 77 80 76 Resp 18 18 B/P (MAP) 136/63 (87) 140/62 (88) 137/57 (83) Pulse Ox 98 97 O2 Delivery Nasal Cannula Nasal Cannula Nasal Cannula Nasal Cannula O2 Flow Rate 4.0 4.0 4.0 4.0 01/12/17 01/12/17 01/12/17 01/12/17 20:00 20:00 20:01 23:00 Temp 97.8 97.9 97.8 97.9 Pulse 99 77 Resp 18 B/P (MAP) 144/63 (90) 132/70 (90) Pulse Ox 99 98 99 O2 Delivery Nasal Cannula Nasal Cannula Nasal Cannula Nasal Cannula O2 Flow Rate 4.0 4.0 4.0 4.0 01/13/17 01/13/17 01/13/17 01/13/17 00:15 03:02 07:00 08:00 Temp 97.7 98.3 97.7 98.3 Pulse 74 81 Resp B/P (MAP) 137/64 (88) 141/62 (88) Pulse Ox 95 97 O2 Delivery Nasal Cannula Nasal Cannula Nasal Cannula Nasal Cannula O2 Flow Rate 4.0 4.0 2.0 2.0 01/13/17 01/13/17 01/13/17 08:41 11:00 11:31 Temp 98.0 98.0 Pulse 82 Resp 18 B/P (MAP) 150/57 (88) Pulse Ox 99 97 99 O2 Delivery Nasal Cannula Nasal Cannula Nasal Cannula O2 Flow Rate 4.0 2.0 2.0 Intake and Output 01/12/17 01/12/17 01/13/17 15:00 23:00 07:00 Intake Total 240 ml 360 ml 50 ml Output Total 2000 ml 900 ml Balance 240 ml -1640 ml -850 ml JHOANA OSMAN MD January 13, 2017 15:04
--- NOTE | 2017-01-13 17:55 | EEG ---
DATE OF SERVICE: 01/13/2017 EEG#: [id number] OBJECTIVE: The patient is a 66-year-old female with altered mental status and tremors of the hands. DESCRIPTION: This is a digital study. Electrodes are placed according to the international 10-20 system. Bipolar and referential montages are available. Activation procedures typically include hyperventilation and intermittent photic stimulation. INTERPRETATION: The waking background consists of 5-6 hertz, 20-50 microvolt activity, symmetrically distributed over parietooccipital regions and reactive to eye opening. There are also some occasional frontally predominate triphasic waves. Hyperventilation and intermittent photic stimulation are noncontributory. Stage 1 sleep was achieved with normal electroencephalogram patterns. IMPRESSION: This electroencephalogram with the patient awake and asleep is abnormal because of a moderate, diffuse disturbance of cerebral activity consistent of a variety of toxic and metabolic encephalopathies. In particular, the presence of triphasic waves maybe seen in renal and hepatic impairment. No epileptic activity is observed, however. Thank you for letting this help with the patient's care. JHOANA OSMAN MD DR: JASMINE/bonnie JOB#: [id number] / [id number] SERGEY Alvarado MD
== END 2017-01-13 16:18 | DRG 435 ==
LOC: OPS 07:58 → 4 NORTH 14:48 → 1 WEST ICU 01-09 08:28
PROVIDERS: ADMIT Internal Medicine; ATTEND Internal Medicine
PROC: 02H633Z Insertion of Infusion Device into Right Atrium, Percutaneous Approach (ICD-10-PCS; 2016-12-28)
PROC: 5A1D60Z (ICD-10-PCS; 2016-12-28)
PROC: 30233K1 Transfusion of Nonautologous Frozen Plasma into Peripheral Vein, Percutaneous Approach (ICD-10-PCS; principal; 2017-01-09)
PROC: 30233N1 Transfusion of Nonautologous Red Blood Cells into Peripheral Vein, Percutaneous Approach (ICD-10-PCS; 2017-01-09)
PROC: 30233R1 Transfusion of Nonautologous Platelets into Peripheral Vein, Percutaneous Approach (ICD-10-PCS; 2017-01-09)
PROC: 30233P1 Transfusion of Nonautologous Frozen Red Cells into Peripheral Vein, Percutaneous Approach (ICD-10-PCS; 2017-01-09)
PROC: 05HN33Z Insertion of Infusion Device into Left Internal Jugular Vein, Percutaneous Approach (ICD-10-PCS; 2017-01-10)
PROC: B544ZZA Ultrasonography of Left Jugular Veins, Guidance (ICD-10-PCS; 2017-01-10)
DX: C22.1 Intrahepatic bile duct carcinoma (principal); N17.0 Acute kidney failure with tubular necrosis; E43 Unspecified severe protein-calorie malnutrition; G93.41 Metabolic encephalopathy; I50.31 Acute diastolic (congestive) heart failure; J96.01 Acute respiratory failure with hypoxia; D61.810 Antineoplastic chemotherapy induced pancytopenia; K66.1 Hemoperitoneum; L03.116 Cellulitis of left lower limb; L03.115 Cellulitis of right lower limb; D62 Acute posthemorrhagic anemia; E87.2 Acidosis; D68.9 Coagulation defect, unspecified; I82.C11 Acute embolism and thrombosis of right internal jugular vein; I82.621 Acute embolism and thrombosis of deep veins of right upper extremity; E66.9 Obesity, unspecified; E83.42 Hypomagnesemia; E83.51 Hypocalcemia; E87.5 Hyperkalemia; K21.9 Gastro-esophageal reflux disease without esophagitis; F41.9 Anxiety disorder, unspecified; L89.90 Pressure ulcer of unspecified site, unspecified stage; M19.90 Unspecified osteoarthritis, unspecified site; I95.9 Hypotension, unspecified; M54.9 Dorsalgia, unspecified; G62.9 Polyneuropathy, unspecified; I11.0 Hypertensive heart disease with heart failure; I27.2 Other secondary pulmonary hypertension; Z82.49 Family history of ischemic heart disease and other diseases of the circulatory system; Z85.05 Personal history of malignant neoplasm of liver; Z85.828 Personal history of other malignant neoplasm of skin; Z86.000 Personal history of in-situ neoplasm of breast; Z86.711 Personal history of pulmonary embolism; Z87.01 Personal history of pneumonia (recurrent); Z86.718 Personal history of other venous thrombosis and embolism; Z87.440 Personal history of urinary (tract) infections; Z79.01 Long term (current) use of anticoagulants; Z90.710 Acquired absence of both cervix and uterus; Z98.84 Bariatric surgery status; Z99.2 Dependence on renal dialysis; T45.515A Adverse effect of anticoagulants, initial encounter; T45.1X5A Adverse effect of antineoplastic and immunosuppressive drugs, initial encounter
CPT/HCPCS: 36415; 36430; 36556; 70551; 71010; 71020; 71260; 74176; 74177; 76705; 76770; 76937; 77001; 80048; 80053; 80069; 80076; 81001; 82140; 82310; 82550; 82570; 82607; 83615; 83735; 83970; 84100; 84132; 84156; 84300; 84443; 85007; 85014; 85018; 85027; 85384; 85520; 85610; 85651; 86140; 86141; 86704; 86706; 86850; 86900; 86901; 86902; 86922; 87040; 87086; 87186; 87324; 87340; 87341; 87641; 93306; 93308; 93970; 93971; 94250; 94640; 94760; 95816; A4215; C1892; J0780; J1940; J2020; J2060; J2248; J2405; J2501; J2543; J2765; J3420; J3430; J3475; J3480; J7030; J7040; J7060; J7620; P9016; P9035; P9045; P9046; Q0163; Q9966; 92526; 92610; 97110; 97116; 97530; 97535

== ENCOUNTER → 2017-05-04 | Outpatient (CLI) | payer MEDICARE, OTHER ==
[~2017-05-04] MED LIST changes: +HEPARIN PF 500 UNIT/5 ML DISP.SYRIN. IV ONE; +IOHEXOL 240 MG/ML 50ML VIAL. PO ONE; +IOHEXOL 300 MG/ML 75 ML VIAL IV ONE
--- NOTE | 2017-05-04 14:22 | RAD ---
CT chest, abdomen and pelvis with IV contrast Indication: History of Cholangiocarcinoma. Surveillance scan. Technique: CT of the chest, abdomen and pelvis with 60 mL of Omnipaque 300 with multi planar reformats. Comparison: Previous study from 01/05/2017 and from 01/09/2017 Findings: Right chest wall port a catheter with its tip at cavoatrial junction. Neck bases clear. No axillary, mediastinal or hilar adenopathy. Heart is normal in size. No pericardial effusion. Small left pleural effusion slightly increased compared to prior study. Resolution of right pleural effusion. No pulmonary nodules or mass. 7 mm lucency is seen within T7 vertebral body with surrounding sclerosis, not seen on prior study. Multilevel degenerative disc disease in the thoracic spine. CT abdomen/pelvis: Post surgical changes is seen in the liver in the gallbladder fossa with no focal hepatic lesions. Spleen is within normal limits. Status post cholecystectomy. Mild central intrahepatic biliary dilation. CBD measures 9 mm, previously 6 mm. The pancreas is within normal limits. Adrenal glands show no focal nodules. Bilateral stable low attenuating lesions are seen within the kidneys likely simple cysts. No hydronephrosis. No bowel obstruction. Postsurgical changes are seen in the stomach. Interval increase in the size of stiven hepatis lymph node measuring 3.0 x 2.0 cm (series 4 image 24), previously 3.1 x 1.3 cm. Retroperitoneal lymph node in the right para-aortic region measures 1.8 x 1.6 cm (series 4 image 31), previously 1.0 x 1.0 cm. Interval increase in the size of gastrohepatic ligament recessed lymph node measuring 2.1 x 1.4 cm, previously 8.8 x 1.0 cm. No pelvic adenopathy. Uterus is not well visualized may be atrophic or surgically absent. Bladder is seen without focal lesion. No free pelvic fluid. Interval decrease in previously seen large left retroperitoneal hematoma. Currently there is a well-circumscribed lesion within left retroperitoneum extending from the origin of the left psoas muscle to the level of left iliac fossa likely resolving hematoma. Stable compression deformities of the L4-L5 vertebral bodies with severe lower lumbar facet arthropathy. Diffuse osteopenia of the bones noted. Impression: 1. Resolution of right pleural effusion. Slight interval increase in left pleural effusion. 2. Interval increase in previously seen stiven hepatis and gastrohepatic ligament recess lymph node. Interval increase in right para-aortic lymph node. These are concerning for metastatic disease. 3. New lucency within T7 vertebral body concerning for bony metastasis. 4. Interval decrease in the previously seen left retroperitoneal hematoma. Currently small amount of likely resolving hematoma noted. 5. Mild interval increase in the size of CBD (9 mm) compared to prior study (6 mm). PQRS Compliance Statement: One or more of the following individualized dose reduction techniques were utilized for this examination: 1. Automated exposure control 2. Adjustment of the mA and/or kV according to patient size 3. Use of iterative reconstruction technique
== END | disposition home or self-care (01) ==
LOC: CT 08:26
PROVIDERS: ATTEND Internal Medicine Hematology & Oncology
DX: C22.1 Intrahepatic bile duct carcinoma (principal); E83.59 Other disorders of calcium metabolism; J90 Pleural effusion, not elsewhere classified
CPT/HCPCS: 71260; 74177; Q9966; Q9967

== ENCOUNTER → 2017-08-16 | Outpatient (CLI) | payer MEDICARE, OTHER ==
[~2017-08-16] MED LIST changes: +GADOBUTROL 7.5 MMOL/7.5 ML VIAL IV ONE; -HEPARIN PF 500 UNIT/5 ML DISP.SYRIN. IV ONE; -IOHEXOL 240 MG/ML 50ML VIAL. PO ONE; -IOHEXOL 300 MG/ML 75 ML VIAL IV ONE
--- NOTE | 2017-08-16 11:53 | RAD ---
MRI of the thoracic spine without and with contrast 08/16/2017 CLINICAL HISTORY: Mid back pain. History of cholangiocarcinoma TECHNIQUE: Unenhanced T1-weighted, T2-weighted and inversion recovery sagittal and T1 and T2-weighted axial images of the thoracic spine were obtained. After the intravenous administration of 6 cc of Gadavist, enhanced T1-weighted sagittal and axial images of the thoracic spine were obtained. FINDINGS: Minimal S-shaped curvature of the thoracolumbar spine is seen. Innumerable metastasis are seen involving the visualized cervical vertebra and scattered throughout the thoracic vertebra. These measure 2 mm to 3.8 cm in size. The largest metastasis involves the T7 vertebral body. A metastasis extends into the anterior epidural space, right greater than left. This measures 6 mm in AP diameter. This results in moderate right lateral central spinal canal stenosis. No neural foraminal stenosis is seen. No additional area of significant tumor extension into the central spinal canal is noted. Degenerative signal changes are seen involving all of the disks of the thoracic spine. No area of abnormal signal intensity is seen involving the thoracic spinal cord. There are small bilateral pleural effusions, left greater than right. A 1 cm rounded high signal intensity lesion is seen involving the midpole of the right kidney on the T2-weighted images. This likely represents a cyst. On the axial images throughout the thoracic disc spaces, relatively mild degenerative changes are seen consisting of minimal to mild generalized disc bulges and degenerative changes involving the facet joints. These findings do not result in definite areas of significant central spinal canal or neural foraminal stenosis. IMPRESSION: Extensive metastasis are seen throughout the visualized cervical vertebrae and throughout the thoracic vertebrae. The largest metastasis is located at T7. A component of this tumor extends into the anterior epidural space, right greater than left. This results in moderate right lateral central spinal canal stenosis. Electronically signed by: Aj Ivy MD (08/16/2017 11:50 AM) [email or web address]
== END | disposition home or self-care (01) ==
LOC: MRI 10:07
PROVIDERS: ATTEND Internal Medicine Hematology & Oncology
DX: M89.8X8 Other specified disorders of bone, other site (principal); J90 Pleural effusion, not elsewhere classified; C76.8 Malignant neoplasm of other specified ill-defined sites
CPT/HCPCS: 72157; A9585

== ENCOUNTER → 2017-11-21 | Outpatient (CLI) | payer MEDICARE, OTHER | END | disposition home or self-care (01) | LOC: US 12:04 | DX: C22.1 Intrahepatic bile duct carcinoma (principal); M79.89 Other specified soft tissue disorders | CPT/HCPCS: 93971 ==

== ENCOUNTER → 2017-12-20 | Outpatient (CLI) | payer MEDICARE, OTHER | END | disposition home or self-care (01) | LOC: PMGWOUND 11:20 | DX: S81.811A Laceration without foreign body, right lower leg, initial encounter (principal); M19.90 Unspecified osteoarthritis, unspecified site; I10 Essential (primary) hypertension; F32.9 Major depressive disorder, single episode, unspecified; F41.9 Anxiety disorder, unspecified; G62.9 Polyneuropathy, unspecified; Z90.710 Acquired absence of both cervix and uterus; Z85.3 Personal history of malignant neoplasm of breast; Z85.828 Personal history of other malignant neoplasm of skin; Z86.718 Personal history of other venous thrombosis and embolism; W22.03XA Walked into furniture, initial encounter; Y93.9 Activity, unspecified; Y99.8 Other external cause status; Y92.9 Unspecified place or not applicable | CPT/HCPCS: 99214 ==

== ENCOUNTER → 2018-01-02 | Outpatient (CLI) | payer MEDICARE, OTHER | END | disposition home or self-care (01) | LOC: PMGWOUND 11:03 | DX: S81.811D Laceration without foreign body, right lower leg, subsequent encounter (principal); M19.90 Unspecified osteoarthritis, unspecified site; I10 Essential (primary) hypertension; F32.9 Major depressive disorder, single episode, unspecified; F41.9 Anxiety disorder, unspecified; G62.9 Polyneuropathy, unspecified; Z90.710 Acquired absence of both cervix and uterus; Z85.3 Personal history of malignant neoplasm of breast; Z85.828 Personal history of other malignant neoplasm of skin; Z86.718 Personal history of other venous thrombosis and embolism; Z85.05 Personal history of malignant neoplasm of liver; W22.03XD Walked into furniture, subsequent encounter | CPT/HCPCS: 99214 ==